=== PATIENT | male | born 1965 | race African-American/Black ===

== ENCOUNTER 2020-07-24 05:17 | Inpatient (IN) | payer OTHER, SELFPAY ==
[2020-07-24] VITALS (18 sets, daily range): BP systolic 148–173; BP diastolic 68–106; PULSE 81–109; RESP 16–36; TEMP 36.6–37.1; O2SAT 91–98; BMI 25.8; BMI 24.7
--- NOTE | 2020-07-24 05:21 | ED.RN ---
NO OLD EKGS IN MUSE
--- NOTE | 2020-07-24 05:28 | EKG12_ITS ---
Test Reason : DYSRHYTHMIA Blood Pressure : / mmHG Vent. Rate : 113 BPM Atrial Rate : 113 BPM P-R Int : 150 ms QRS Dur : 086 ms QT Int : 348 ms P-R-T Axes : 019 082 076 degrees QTc Int : 477 ms Sinus tachycardia Possible Left atrial enlargement Left ventricular hypertrophy Cannot rule out Septal infarct , age undetermined Abnormal ECG Confirmed by ROSI URBAN, PASCALE ([id number]), video tape editor DREA BELLE ([id number]) on 07/26/2020 10:38:10 A M Referred By: LALITA Confirmed By:LUL ARANDA MD
[2020-07-24] MEDS: Ipratropium/Albuterol Sulfate 3 ML AMPUL.NEB INHALATION (05:36)
--- NOTE | 2020-07-24 05:36 | EDS_ITS ---
HPI History of Present Illness Chief Complaint: Shortness of Breath Informant: patient Narrative Narrative: Patient is a 55-year-old male with a past medical history of diabetes, hypertension who presents to the emergency department for chest tightness and shortness of breath. His initial symptoms started 1 week ago but became acutely worse this past evening. He has had a mild nonproductive cough. Denies fevers or chills. No known sick contacts. He has been vaccinated for Covid. He denies significant chest pain but has a pressure sensation. This is substernally. He denies any history of heart attacks, strokes or DVT/PE. He has had mild swelling of his legs bilaterally but no unilateral painful legs. Patient does smoke cigarettes. He does admit to using cocaine but the last time was 1 week ago. He denies any abdominal pain or back pain. PFSH PFSH Medical History Anxiety Depression Diabetes mellitus, type 2 Dyslipidemia Hypertension Smoker Home Medications fluticasone propionate 2 spray INTRANASAL DAILY 07/24/20 [History Last Taken Unknown] gabapentin 300 mg PO TID 07/24/20 [History Last Taken Unknown] metformin 1,000 mg PO BIDCM 07/24/20 [History Last Taken Unknown] paroxetine HCl 20 mg PO QHS 07/24/20 [History Last Taken Unknown] trazodone 50 mg PO QHS 07/24/20 [History Last Taken Unknown] ascorbic acid (vitamin C) 500 mg PO BIDCM #60 tab 07/26/20 [Rx Last Taken Unknown] atorvastatin 80 mg PO QHS #30 tab 07/26/20 [Rx Last Taken Unknown] carvedilol 6.25 mg PO BID #60 tab 07/26/20 [Rx Last Taken Unknown] ferrous sulfate [FeroSul] 325 mg PO DAILY@1200 #90 tab 07/26/20 [Rx Last Taken Unknown] furosemide [Lasix] 40 mg PO BID #60 tab 07/26/20 [Rx Last Taken Unknown] glipizide 5 mg PO BID #60 tab 07/26/20 [Rx Last Taken Unknown] lisinopril 10 mg PO DAILY #30 tab 07/26/20 [Rx Last Taken Unknown] magnesium 250 mg PO DAILY #30 tab 07/26/20 [Rx Last Taken Unknown] nitroglycerin 0.4 mg SUBLINGUAL Q5M PRN #30 tab 07/26/20 [Rx Last Taken Unknown] sennosides-docusate sodium [Stool Softener-Stimulant Laxat] 2 tab PO BID PRN PRN #0 tab 07/26/20 [Rx Last Taken Unknown] spironolactone 25 mg PO DAILY #30 tab 07/26/20 [Rx Last Taken Unknown] Allergy/AdvReac Type Severity Reaction Status Date / Time No Known Allergies Allergy Verified 07/24/20 05:28 Social History Smoking Status: Current every day smoker tobacco type: cigarettes ROS ROS ED Constitutional Constitutional ED: Denies chills or fever(s) Eyes Eyes: Denies change in vision ENT ENT ED: Denies epistaxis or rhinorrhea Cardiovascular Cardiovascular: Denies chest pain or palpitations Respiratory/Chest Respiratory/Chest: Reports cough and dyspnea; Denies sputum Gastrointestinal Gastrointestinal: Denies abdominal pain, diarrhea, nausea or vomiting Genitourinary Genitourinary ED: Denies dysuria, hematuria or urinary frequency Musculoskeletal Musculoskeletal: Denies back pain or neck pain Integumentary Denies rash Neurologic Neurologic: Denies dizziness, headache(s) or weakness EXAM Physical Exam Const Vital Signs: 07/24/20 05:19 07/24/20 05:31 07/24/20 05:36 Temperature 97.8 F Temperature Source Temporal Pulse Rate 109 H 104 H Respiratory Rate 36 H 24 H Respiratory Pattern Tachypnea Blood Pressure 173/96 H Blood Pressure Mean 121 Pulse Ox 91 95 Oxygen Delivery Method Room Air Nasal Cannula Oxygen Flow Rate (L/min) 2 Positive well nourished and well developed General Appearance ED: well developed and NAD HEENT Reports normocephalic and head/scalp atraumatic Eyes PERRL and EOMs intact bilaterally Neck supple Chest Wall inspection of chest normal Resp Resp Narrative: Equal chest rise bilaterally. Patient is tachypneic. Auscultation: diminished lung sounds; Negative for rales, rhonchi or wheezes Cardio regular rhythm and no murmurs GI normal to inspection, nondistended, normoactive bowel sounds and non-tender Palpation: soft; Negative for guarding or rebound tenderness present Back/Spine no CVA tenderness Extremity normal to inspection General Extremety ED: Negative for edema or tenderness General Extremity: Negative for edema Neuro CN's II-XII intact bilaterally and no sensory deficits noted Sensorium / Orientation: alert Motor Exam: strength 5/5 throughout Psych mental status grossly normal Skin no rashes or lesions noted MDM MDM MDM Narrative Medical decision making narrative: Patient presents to the emergency department for shortness of breath and chest tightness. Upon arrival to the emerge depa rtment he is tachycardic, tachypneic and satting 88% on room air. Patient started on supplemental oxygen. He has diminished breath sounds and will trial a breathing treatment. Patient does has risk factors for CAD with diabetes, hypertension, smoker as well as cocaine use. EKG did not show any signs of ischemia or arrhythmia. Patient's lab work did come back positive for him being significantly anemic. He states he has required transfusions before in the past. He has been scoped both upper and lower which they did not find any acute abnormality at that time. Patient denying any melanotic or blood in the stool. Patient CT scan did show pleural effusions, pulmonary vascular congestion. He does have an elevated BNP. We will give a dose of Lasix as we are going to be transfusing him packed red blood cells. Patient did consent for this. Otherwise his troponin is negative. He is agreeable to staying in the hospital at this time. Lab Data Labs: Laboratory Results - last 24 hr 07/24/20 07/24/20 07/24/20 05:30 05:30 05:30 WBC 10.8 RBC 4.03 L Hgb 6.0 L* Hct 24.2 L MCV 60.0 L MCH 14.9 L MCHC 24.8 L RDW Std Deviation 46.0 H RDW Coeff of Prudence 22.9 H Plt Count 352 Immature Gran % (Auto) 0.400 Neut % (Auto) 72.3 H Lymph % (Auto) 17.5 L Brantley % (Auto) 7.0 Eos % (Auto) 2.2 Baso % (Auto) 0.6 Absolute Neuts (auto) 7.8 H Absolute Lymphs (auto) 1.89 Nucleated RBC % 0 Diff Path Review May foll D-Dimer Quant (PE/DVT) 1.71 H* Sodium 138 Potassium 3.6 Chloride 102 Carbon Dioxide 29.0 Anion Gap 7 BUN 12 Creatinine 0.83 Estim Creat Clear Calc 123.02 Est GFR (MDRD) Af Amer 125 Est GFR (MDRD) Non-Af 103 BUN/Creatinine Ratio 14.5 Glucose 247 H Calcium 8.2 L Magnesium 1.6 Troponin I 0.026 B-Natriuretic Peptide Crossmatch 07/24/20 07/24/20 05:30 06:00 WBC RBC Hgb Hct MCV MCH MCHC RDW Std Deviation RDW Coeff of Prudence Plt Count Immature Gran % (Auto) Neut % (Auto) Lymph % (Auto) Brantley % (Auto) Eos % (Auto) Baso % (Auto) Absolute Neuts (auto) Absolute Lymphs (auto) Nucleated RBC % Diff Path Review D-Dimer Quant (PE/DVT) Sodium Potassium Chloride Carbon Dioxide Anion Gap BUN Creatinine Estim Creat Clear Calc Est GFR (MDRD) Af Amer Est GFR (MDRD) Non-Af BUN/Creatinine Ratio Glucose Calcium Magnesium Troponin I B-Natriuretic Peptide 679.5 H Crossmatch See Detail EKG Initial EKG: Attestation: I personally reviewed and interpreted this EKG as follows: (Rate of 113 bpm in sinus tachycardia. Normal intervals. Normal axis. No significant ST elevations or depressions. No T wave abnormalities.) Discharge Plan Dx/Rx/DC Orders Clinical Impression: Anemia, Hypoxia, Dyspnea Disposition Disposition: Acute Care Hospital [facility] Discharge Date/Time: 07/24/20 08:25
[2020-07-24 05:45] LABS: Absolute Lymphocyte Count 1.89 X10^3/uL (0.83-4.51); Absolute Neutrophil Count 7.8 X10^3/uL (2.0-7.7); Basophil# 0.07 X10^3/uL; Basophil% 0.6 % (0-1); Eosinophil# 0.24 X10^3/uL; Eosinophils% 2.2 % (0-5); Hematocrit 24.2 % (40-54); Lymphocyte # 1.89 X10^3/ul (0.83-4.51); Lymphocyte % 17.5 % (19-41); Mean Corp Hgb Conc 24.8 g/dL (32-36); Mean Corpuscular Hgb 14.9 pg (27.0-32.0); Monocyte# 0.75 X10^3/uL; NRBC Flagged by Analyzer 0 % (0-5); Neutrophil % 72.3 % (47-70); POSITIVE MORPHOLOGY YES; Platelet Count 352 K/mm3 (150-450); RBC Distribution Width CV 22.9 % (11.6-14.6); Red Blood Count 4.03 M/mm3 (4.6-6.2); White Blood Count 10.8 K/mm3 (4.4-11.0)
[2020-07-24 05:48] LABS: Differential Indicated SCAN CRITERIA MET
[2020-07-24 05:52] LABS: D-Dimer Quantitative (DVT/PE) 1.71 FEU/ug/m (0.27-0.49)
--- NOTE | 2020-07-24 05:57 | CT_ITS ---
STUDY: CTA CHEST REASON FOR EXAM: Male, 55 years old. Hypoxia, elev. dimer RADIATION DOSAGE (If Supplied By Facility): CTDIvol = ( 12.12 ) mGy, DLP = ( 411.41 ) mGycm TECHNIQUE: The examination was performed with the intravenous administration of IV 100mL Isovue-370. Post-processing of the angiographic images was performed, with multiplanar reformation and 3D reconstruction. Individualized dose optimization techniques were used for this CT. COMPARISON: None. FINDINGS: Normal enhancement of the main pulmonary artery and right and left pulmonary arteries. Normal enhancement of the bilateral peripheral pulmonary arteries. There is no demonstrated pulmonary embolism. Normal thoracic aorta and visualized great vessels. There is no demonstrated aortic dissection. There is mild cardiac enlargement or coronary calcifications. Normal mediastinum. Normal hilar regions. Normal visualized trachea and bronchi. There is interstitial septal thickening small to moderate bilateral effusions. Normal pleura. Normal chest wall structures. There are degenerative changes of thoracic spine. Normal visualized upper abdomen. CT/CTA Chest W/WO Contrast IMPRESSION: Bilateral effusions and diffuse septal thickening atelectasis. Consider CHF. Mild cardiomegaly coronary artery calcification. Electronically Signed: Shweta Kim MD at 6:51 EDT Tel , Service support ,
[2020-07-24 06:02] LABS: Anion Gap 7 (5-15); BUN 12 mg/dL (7-18); BUN/Creat Ratio 14.5 RATIO (10-20); Calcium,Total 8.2 mg/dL (8.5-10.1); Chloride 102 mmol/L (98-107); Creatinine, Serum 0.83 mg/dL (0.70-1.30); EST Glomerular Filtration Rate 103 mL/min (>60); Est Glom Filt Rate - Afr Amer 125 mL/min (>60); Estimated Creatinine Clearance 123.02 ml/min; Glucose 247 mg/dL (74-106); Magnesium 1.6 mg/dL (1.6-2.6); Potassium 3.6 mmol/L (3.5-5.1); Sodium Level 138 mmol/L (136-145)
[2020-07-24 06:10] LABS: BNP,B-Type NATRIURETIC PEPTIDE 679.5 pg/mL (0-100)
[2020-07-24 07:11] LABS: AST(SGOT) 40 U/L (15-37); Alanine Aminotransfer ALT/SGPT 23 U/L (16-61); Albumin, Serum 2.6 g/dL (3.2-5.0); Alkaline Phosphatase 110 U/L (45-117); Protein, Total 6.6 g/dL (6.4-8.2)
--- NOTE | 2020-07-24 07:14 | NURSING ---
CALLED [facility], TALKED TO KEYUR. CHECKED AND HAS NOTHING BUT [employer]. WE ARE OK TO ADMIT HIM HERE WILL FAX CHART TO [phone]
[2020-07-24] MEDS: Furosemide 40 MG/4 ML Vial IV ×3 (07:20→17:51)
--- NOTE | 2020-07-24 07:33 | NURSING ---
HOSPITALIST FOR DR MILLIGAN
[2020-07-24 07:35] LABS: Allen Test Positive; Base Excess 1 mmol/L (-2 to +2); Bicarbonate 24.4 mmol/L (22-26); Blood Gas Specimen Type ART; O2 Delivery Device Room Air; PO2 55 mmHG (75-100); SITE L Radial; SO2 90 % (95-99); Total Carbon Dioxide 25 mmol/L; pCO2 34.4 mmHg (35-45); pH 7.46 (7.35-7.45)
--- NOTE | 2020-07-24 07:41 | NURSING ---
CARA CONNER ANEMIA, CHF
[2020-07-24 09:17] LABS: Magnesium 1.7 mg/dL (1.6-2.6)
--- NOTE | 2020-07-24 09:50 | ECHOD_ITS ---
Reason For Study: CHF Procedure This was a 2D Doppler, Color Flow transthoracic echocardiogram. Exam performed portable in patient room. Left Ventricle Normal LV size. Moderate concentric left ventricular hypertrophy. The estimated ejection fraction is 45 %. Stage 2 diastolic dysfunction. No regional wall motion abnormalities noted. Right Ventricle Normal RV size. Normal systolic function. Atria The left atrium is mildly enlarged. Normal right atrium. Mitral Valve Normal mitral valve. Mild (1+) eccentric mitral valve insufficiency. Tricuspid Valve Normal tricuspid valve. Mild to moderate (1-2+) tricuspid valve insufficiency. Pulmonary artery systolic pressure is 54 mmHg. Moderate pulmonary hypertension. Aortic Valve Normal aortic valve. Trisinus/trileaflet aortic valve. Pulmonic Valve Normal pulmonic valve. Great Vessels Mild to moderately dilated aortic root. The pulmonary artery is normal size. Normal inferior vena cava. Pericardium/Pleural No pericardial effusion. MMode/2D Measurements & Calculations LVIDd: 5.3 cm IVSd: 1.6 cm Ao root diam: 4.5 cm LVIDs: 4.4 cm LVPWd: 1.7 cm RVDd: 4.4 cm FS: 17.0 % LAV(MOD-sp4): 73.8 ml LVAd ap4: 48.5 cm2 SV(MOD-sp4): 95.2 ml LVLd ap4: 10.8 cm EDV(MOD-sp4): 176.1 ml EDV(sp4-el): 185.4 ml LVAs ap4: 30.0 cm2 LVLs ap4: 8.9 cm ESV(MOD-sp4): 80.9 ml ESV(sp4-el): 86.2 ml EF(MOD-sp4): 54.1 % EF(sp4-el): 53.5 % SV(sp4-el): 99.2 ml LA A4 area: 22.6 cm2 LA dimension(2D): 4.5 cm RA A4 area: 20.8 cm2 Time Measurements MV dec time: 0.11 sec Doppler Measurements & Calculations MV E max sundar: 90.3 cm/sec Lat Peak E' Sundar: 6.8 cm/sec Med Peak E' Sundar: 5.0 cm/sec MV A max sundar: 72.5 cm/sec E/E' lat: 13.3 E/E' med: 18.2 MV E/A: 1.2 Ao V2 max: 135.0 cm/sec LV V1 max: 102.8 cm/sec PA V2 max: 87.2 cm/sec Ao max P.3 mmHg LV V1 max P.2 mmHg TR max sundar: 353.0 cm/sec TR max P.9 mmHg ECHO/Echo Complete Interpretation Summary Normal LV size. The estimated ejection fraction is 45 %. Moderate concentric left ventricular hypertrophy. Mild to moderately dilated aortic root. Stage 2 diastolic dysfunction. Pulmonary artery systolic pressure is 54 mmHg. Moderate pulmonary hypertension. The left atrium is mildly enlarged. The global longitudinal strain is moderately abnormal. The global longitudinal strain = -13% (abnormal). Ordering Physician: Jesus Aguila Referring Physician: [facility] Performed By: Kathy Fair, [place], RVT
--- NOTE | 2020-07-24 09:56 | PCM.HP.STD ---
HPI - General General Date of Admission: 07/24/20 HPI Narrative OLIVER CRAMER, is a 55 M who presents with history of chronic alcohol use, substance use, hypertension, dyslipidemia and diabetes mellitus type 2 came to ER with progressive worsening of shortness of breath for 7 to 10 days along with leg swelling. Patient has been getting short of breath on exertion for 3 to 4 years progressively worsening but last 7 to 10 days complain of dyspnea at rest, PND and orthopnea. Denies chest pain or tightness. Patient also feels sometimes dizzy lightheaded but no syncope. In ED, his blood pressure is elevated, 171/101 heart rate 103/min, pulse ox 97% on room air. BNP elevated. EKG shows normal sinus tachycardia 113/min, QTC 477 ms with LVH. Patient states he takes lisinopril, cholesterol pill and Metformin but no home medications on chart. Patient admits to using crack cocaine less than a gram per day. Patient also smokes cigarettes less than a pack per day since teenage. Denies drinking alcohol. Patient mother of complication of diabetes mellitus, father had hypertension. His brother at early age, etiology unclear Pertinent abnormal labs H&H was found low 6.0/24, D-dimer 171, K3.6, glucose 247, AST 40, ALT 23. BNP 680. ABG 7.4 634/55/24 on room air. Chest x-ray showed bilateral pleural effusion with atelectasis and features of CHF. Patient is getting first unit of transfusion and 40 mg IV Lasix in ER and admitted. [facility] Medical History Anxiety Depression Diabetes mellitus, type 2 Dyslipidemia Hypertension Smoker Allergy/AdvReac Type Severity Reaction Status Date / Time No Known Allergies Allergy Verified 07/24/20 05:28 Social History Smoking Status: Current every day smoker tobacco type: cigarettes ROS ROS Narrative Constitutional: Reports fatigue and weakness, shortness of breath. Tired and pale looking HEENT: Reports systems reviewed and no addt'l complaints, except as documented Respiratory/Chest: shortness of breath at rest exacerbated with exertion as mentioned in HPI Cardiovascular: Leg swelling. Gastrointestinal: Denies coffee ground emesis, hematemesis or vomiting. Burping and abdominal bloating. Genitourinary: Denies burning urination or hematuria Musculoskeletal: Denies joint pain and limited range of motion Neurologic: Denies seizure-like activity skin: No ulcer. No rash Endocrinology: Diabetes. Reports systems reviewed and no addt'l complaints, except as documented Hematologic/Lymphatic: Reports systems reviewed and no addt'l complaints, except as documented Rest 12 ROS are negative except as mentioned in HPI Vital Signs Vital Signs Vital Signs: 07/24/20 05:19 07/24/20 05:31 07/24/20 05:36 Temperature 97.8 F Temperature Source Temporal Pulse Rate 109 H 104 H Respiratory Rate 36 H 24 H Respiratory Effort Respiratory Depth Respiratory Pattern Tachypnea Blood Pressure 173/96 H Blood Pressure Mean 121 Blood Pressure Source Blood Pressure Position Blood Pressure Location Pulse Ox 91 95 Oxygen Delivery Method Room Air Nasal Cannula Oxygen Flow Rate (L/min) 2 07/24/20 07:27 07/24/20 07:32 07/24/20 07:38 Temperature 98.3 F 98.3 F Temperature Source Oral Oral Pulse Rate 104 H 99 Respiratory Rate 18 16 Respiratory Effort Respiratory Depth Respiratory Pattern Blood Pressure 165/88 H 168/106 H Blood Pressure Mean 113 126 Blood Pressure Source Monitor Blood Pressure Position Blood Pressure Location Pulse Ox 94 94 Oxygen Delivery Method Room Air Room Air Room Air Oxygen Flow Rate (L/min) 07/24/20 07:42 07/24/20 08:01 07/24/20 08:42 Temperature 98.2 F 98.2 F 98.1 F Temperature Source Oral Oral Oral Pulse Rate 103 H 103 H 90 Respiratory Rate 19 H 19 H 20 H Respiratory Effort Respiratory Depth Respiratory Pattern Blood Pressure 170/85 H 170/85 H 171/101 H Blood Pressure Mean 113 113 124 Blood Pressure Source Monitor Monitor Blood Pressure Position Semi-Fowlers Blood Pressure Location Right Arm Pulse Ox 96 96 97 Oxygen Delivery Method Room Air Room Air Room Air Oxygen Flow Rate (L/min) 07/24/20 08:59 Temperature Temperature Source Pulse Rate Respiratory Rate Respiratory Effort Normal Non-Labored Respiratory Depth Normal Respiratory Pattern Normal Blood Pressure Blood Pressure Mean Blood Pressure Source Blood Pressure Position Blood Pressure Location Pulse Ox Oxygen Delivery Method Room Air Oxygen Flow Rate (L/min) Weight Weight: 197 lb 15.602 oz Body Mass Index (BMI) 24.7 Physical Exam Narrative General: Alert, Oriented x3, Cooperative HEENT: Atraumatic, PERRLA, EOMI, Normocephalic Oral: No Gingival or Mucosal Lesions/ Ulcerations Neck: Supple, No JVD, Negative Carotid Bruits Lungs: Air entry diminished in bilateral lung bases. Bilateral lung bases crepitations present. Cardiovascular: Regular rate, Regular Rhythm, Normal S1, Normal S2, No murmurs Abdomen: Bowel Sounds Present, Soft, Non Tender, Non-Distended : No renal angle tenderness. No suprapubic tenderness. Extremities: Bilateral leg 2+ edema, Capillary Refill Less than 3 Seconds Skin: No rashes, No breakdown Musculoskeletal: No Tenderness to Palpation of Joints or Extremities Neurological: Cranial nerves II-XII grossly intact, Deep Tendon Reflexes 2+/4 and Symmetrical, Neuro grossly intact Psych/Mental Status: Normal Affect, Appropriate. Results Lab / Micro Data Result Diagrams: 07/24/20 05:30 07/24/20 05:30 Labs: Laboratory Results - last 24 hr 07/24/20 07/24/20 07/24/20 05:30 05:30 05:30 WBC 10.8 RBC 4.03 L Hgb 6.0 L* Hct 24.2 L MCV 60.0 L MCH 14.9 L MCHC 24.8 L RDW Std Deviation 46.0 H RDW Coeff of Prudence 22.9 H Plt Count 352 Immature Gran % (Auto) 0.400 Neut % (Auto) 72.3 H Lymph % (Auto) 17.5 L Mcleod % (Auto) 7.0 Eos % (Auto) 2.2 Baso % (Auto) 0.6 Absolute Neuts (auto) 7.8 H Absolute Lymphs (auto) 1.89 Nucleated RBC % 0 Diff Path Review May foll D-Dimer Quant (PE/DVT) 1.71 H* Sodium 138 Potassium 3.6 Chloride 102 Carbon Dioxide 29.0 Anion Gap 7 BUN 12 Creatinine 0.83 Estim Creat Clear Calc 123.02 Est GFR (MDRD) Af Amer 125 Est GFR (MDRD) Non-Af 103 BUN/Creatinine Ratio 14.5 Glucose 247 H Calcium 8.2 L Magnesium 1.6 Total Bilirubin Direct Bilirubin AST ALT Alkaline Phosphatase Troponin I 0.026 B-Natriuretic Peptide Total Protein Albumin Globulin Blood Type Antibody Screen Crossmatch 07/24/20 07/24/20 07/24/20 05:30 05:30 06:00 WBC RBC Hgb Hct MCV MCH MCHC RDW Std Deviation RDW Coeff of Prudence Plt Count Immature Gran % (Auto) Neut % (Auto) Lymph % (Auto) Mcleod % (Auto) Eos % (Auto) Baso % (Auto) Absolute Neuts (auto) Absolute Lymphs (auto) Nucleated RBC % Diff Path Review D-Dimer Quant (PE/DVT) Sodium Potassium Chloride Carbon Dioxide Anion Gap BUN Creatinine Estim Creat Clear Calc Est GFR (MDRD) Af Amer Est GFR (MDRD) Non-Af BUN/Creatinine Ratio Glucose Calcium Magnesium Total Bilirubin 0.40 Direct Bilirubin 0.20 AST 40 H ALT 23 Alkaline Phosphatase 110 Troponin I B-Natriuretic Peptide 679.5 H Total Protein 6.6 Albumin 2.6 L Globulin 4.0 Blood Type B POSITIVE Antibody Screen NEGATIVE Crossmatch See Detail 07/24/20 07/24/20 08:59 08:59 WBC RBC Hgb Hct MCV MCH MCHC RDW Std Deviation RDW Coeff of Prudence Plt Count Immature Gran % (Auto) Neut % (Auto) Lymph % (Auto) Mcleod % (Auto) Eos % (Auto) Baso % (Auto) Absolute Neuts (auto) Absolute Lymphs (auto) Nucleated RBC % Diff Path Review D-Dimer Quant (PE/DVT) Sodium Potassium Chloride Carbon Dioxide Anion Gap BUN Creatinine Estim Creat Clear Calc Est GFR (MDRD) Af Amer Est GFR (MDRD) Non-Af BUN/Creatinine Ratio Glucose Calcium Magnesium 1.7 Total Bilirubin Direct Bilirubin AST ALT Alkaline Phosphatase Troponin I 0.037 B-Natriuretic Peptide Total Protein Albumin Globulin Blood Type Antibody Screen Crossmatch Micro: Microbiology 07/24/20 05:30 SARS-CoV-2 Antigen (Rapid) - Final Mucosa - Nose ABG Data ABG results: ABG 07/24/20 07:28 Specimen Type ART Sample Site L Radial pH 7.46 H Bicarbonate Actual 24.4 Total CO2 25 Base Excess 1 O2 Saturation 90 L ABG pCO2 34.4 L ABG pO2 55 L Miky Test Positive O2 Delivery Device Room Air Radiology Impression Chest CTA 07/24/20 05:57 IMPRESSION: Bilateral effusions and diffuse septal thickening atelectasis. Consider CHF. Mild cardiomegaly coronary artery calcification. Electronically Signed: Shweta Kim MD at 6:51 EDT Tel , Service support , Assessment & Plan Assessment/Plan (1) Acute on chronic heart failure: PLAN: alice BRADSHAW a 55 M was admitted through ER with progressive worsening of shortness of breath for 7 to 10 days along with leg swelling. EKG shows normal sinus tachycardia 113/min, QTC 477 ms with LVH. Pertinent abnormal labs H&H was found low 6.0/24, D-dimer 171, K3.6, glucose 247, AST 40, ALT 23. BNP 680. ABG 7.4 6/34/55/24 on room air. Chest x-ray showed bilateral pleural effusion with atelectasis and features of CHF. 1. Acute on chronic heart failure, class, type and etiology unclear: By history, it seems patient has slowly progressive worsening of heart failure. Patient is being admitted in PCU on cardiac telemetry. Serial troponin enzymes to rule out ischemia. 2D echo ordered. Lasix 40 mg IV twice daily. On lisinopril. Start beta-cornelius when patient is euvolemic. Fasting profile and TSH tomorrow a.m. Atorvastatin started. Discussed with the pharmacist regarding meds probably needs to be faxed from [facility]. Discussed with Dr. Chapman and will need ischemia evaluation probably cardiac cath after patient is euvolemic and well diuresed. 2. Hypertension with LVH on EKG, dyslipidemia: As mentioned above 3. Diabetes mellitus type 2: Glucose is elevated. A1c tomorrow a.m. Accu-Cheks before meals and at bedtime and cover with similar sliding scale. 4. Acute or chronic microcytic anemia: Hemogram shows low MCV, MCH and MCHC, most likely iron deficiency anemia. RDW elevated. Stool for occult blood ordered. 2 units of PRBC ordered 1 transfusion today and second 1 tomorrow a.m to avoid fluid overload. Will need GI evaluation most probably as an outpatient when patient is in a stable steady state. 5. Chronic smoker and substance use: UA and urine tox ordered. Patient advised to quit smoking and cocaine. VTE prophylaxis: Bilateral SCDs. Pharmacological prophylaxis contraindicated because of severe anemia. Living will/advanced directive/end of life care: Patient does not have living will or advanced directive. After discussion of benefits/risks procedures involved with full code, DNR CC arrest and DNR CC, the patient opted for full code Patient does want artificial life support including intubation, tube feed, ventilator and/chest compression, central venous catheter, vasopressor and DC shock if needed Total time spent in [id number] encounter in discussion of advanced directive 16 minutes. Clinical Impression(s) from Imaging Studies Chest CTA 07/24/20 05:57 IMPRESSION: Bilateral effusions and diffuse septal thickening atelectasis. Consider CHF. Mild cardiomegaly coronary artery calcification. Charges/Coding Visit Charges Inpatient E&M: 52298 Init Hosp L3 Procedures Hospitalists Procedures: 18247 Advncd Care Plan 30 Min
--- NOTE | 2020-07-24 09:58 | NURSING ---
Addendum entered by Kanwal Schmidt 07/24/20 12:23: This RN received medication list from [place]. Updated on Home Medication List and notified MD. Original Note: This RN called [facility] for medication list. They are to fax information to [facility].
--- NOTE | 2020-07-24 10:10 | CASEMGMT ---
AKILA MAYES assessment: Face to Face with patient for initial transition planning/care coordination assessment. AKILA MAYES introduced self and role at [facility], pt voices understanding and consents to assessment. Pt is sitting up in bed in no distress on room air. Pt is A/Ox4 and answers all questions appropriately. Care providers, pharmacy, and demographics verified. Presentation: Pt w/ panic attack, shaking/SOB-hx anxiety, high BP Admitting dx: CHF exac, anemia PCP: LARON Atkins Specialists: Johnnie LARRY [place] but would like any scripts sent thru [facility] [place] Living Will/HPOA: Pt states does not have LW/HPOA and declines AD info. LNOK: Elsy Onur, sig other Living Arrangements: Pt states lives with sig other in 1 story apartment with no steps and states no concerns at home. Pt states is independent with ADL's. Transportation: Pt drives self and states no transportation concerns. DME/HHC: Pt states no current DME or need for any. Pt states no hx of HHC or SNF. Pt staes no concerns with going home at time of discharge. Pt states is retired. Pt states smokes 1/2 pk cigarettes daily, drinks ETOH occasionally, and states does crack cocaine daily. Pt states no further concerns/needs. CM to follow for any further discharge planning/needs. Advised pt to ask for CM if any further questions/concerns/needs arise, voices understanding. Pt Goal: Home Plan: [place] AKILA MAYES
[2020-07-24] MEDS: Lisinopril 10 MG Tablet PO (11:02)
[2020-07-24] MEDS: 0.9% Saline Lock 10 ML Syringe IV ×3 (11:02→22:38)
[2020-07-24 12:14] LABS: Pathologist Review Reviewed
[2020-07-24] MEDS: Gabapentin 300 MG Capsule PO ×2 (13:56→22:28)
[2020-07-24] MEDS: Atorvastatin Calcium 40 MG Tablet PO (22:28)
[2020-07-24] MEDS: Paroxetine 20 MG Tablet PO (22:29)
[2020-07-25] VITALS (14 sets, daily range): BP systolic 142–164; BP diastolic 78–98; PULSE 86–92; RESP 16–18; TEMP 36.4–37.2; O2SAT 94–98
[2020-07-25 00:51] LABS: Bedside Glucose 289 mg/dL (70-110)
[2020-07-25] MEDS: Insulin Lispro 100 UNIT/ML INSULN.PEN SC ×5 (01:35→22:01)
[2020-07-25 05:51] LABS: Absolute Lymphocyte Count 1.91 X10^3/uL (0.83-4.51); Absolute Neutrophil Count 5.9 X10^3/uL (2.0-7.7); Basophil# 0.09 X10^3/uL; Differential Indicated SCAN CRITERIA MET; Eosinophil# 0.24 X10^3/uL; Eosinophils% 2.7 % (0-5); Hemoglobin 6.6 g/dL (13.0-16.5); Lymphocyte # 1.91 X10^3/ul (0.83-4.51); Lymphocyte % 21.7 % (19-41); Mean Corp Hgb Conc 25.4 g/dL (32-36); Mean Corpuscular Hgb 15.5 pg (27.0-32.0); Mean Corpuscular Volume 61.2 fL (80-94); Monocyte# 0.67 X10^3/uL; Monocyte% 7.6 % (0-10); NRBC Flagged by Analyzer 0 % (0-5); Neutrophil # 5.88 X10^3/uL (2.7-7.7); Neutrophil % 66.7 % (47-70); POSITIVE MORPHOLOGY YES; Platelet Count 359 K/mm3 (150-450); RBC Distribution Width CV 25.2 % (11.6-14.6); RBC Distribution Width SD 52.1 fl (35.1-43.9); Red Blood Count 4.25 M/mm3 (4.6-6.2); White Blood Count 8.8 K/mm3 (4.4-11.0)
[2020-07-25 06:19] LABS: Anion Gap 6 (5-15); BUN 10 mg/dL (7-18); BUN/Creat Ratio 13.3 RATIO (10-20); Chloride 100 mmol/L (98-107); Cholesterol 174 mg/dL (200); Creatinine, Serum 0.75 mg/dL (0.70-1.30); EST Glomerular Filtration Rate 115 mL/min (>60); Est Glom Filt Rate - Afr Amer 139 mL/min (>60); Estimated Creatinine Clearance 136.14 ml/min; Glucose 182 mg/dL (74-106); High Density Lipoprotein 37 mg/dL; Phosphorus 3.6 mg/dL (2.5-4.9); Potassium 3.4 mmol/L (3.5-5.1); Sodium Level 138 mmol/L (136-145); Thyroid Stim Hormone (TSH) 0.82 uIU/mL (0.358-3.74); Triglycerides 106 mg/dL; Very Low Density Lipoprotein 21 mg/dL (5-40)
[2020-07-25 06:30] LABS: Hypochromasia 3+
[2020-07-25] MEDS: Gabapentin 300 MG Capsule PO ×3 (06:36→22:00)
[2020-07-25 06:46] LABS: Bedside Glucose 176 mg/dL (70-110)
[2020-07-25 07:41] LABS: BNP,B-Type NATRIURETIC PEPTIDE 789.6 pg/mL (0-100)
[2020-07-25] MEDS: Lisinopril 10 MG Tablet PO (09:27)
[2020-07-25] MEDS: Furosemide 40 MG/4 ML Vial IV ×2 (09:27→17:56)
[2020-07-25] MEDS: 0.9% Saline Lock 10 ML Syringe IV ×3 (09:27→17:56)
[2020-07-25] MEDS: Potassium Chloride Oral Tablet 20 MEQ 40 MEQ PO (11:24)
[2020-07-25 11:41] LABS: Bedside Glucose 263 mg/dL (70-110)
--- NOTE | 2020-07-25 13:56 | CON.PCM.CA_ITS ---
Assessment & Plan Assessment/Plan (1) Acute on chronic heart failure: QUALIFIERS: Heart failure type: combined systolic and diastolic Qualified Code(s): I50.43 - Acute on chronic combined systolic (congestive) and diastolic (congestive) heart failure PLAN: Patient responded well to Lasix. He does have low EF on echo. He did have chest tightness as well. He would need coronary angiography. However patient has significant anemia that needs to be investigated first. He does not have any evidence of acute coronary syndrome. Coronary angiography could be done as an outpatient. From a CHF standpoint I agree with continuing lisinopril and IV Lasix at this time. Potentially tomorrow we can switch the Lasix to p.o. I will also go ahead and add carvedilol. HPI Consult Data Date of Consult: 07/25/20 HPI Narrative Reason for Consultation: CHF, LV dysfunction HPI Narrative: OLIVER CRAMER, is a 55 M who presents with shortness of breath. Patient also had pedal edema, PND and chest tightness. Patient was admitted to the PCU. He was also noted to have significant anemia with a hemoglobin of 6.0. His troponin x3 have been negative. Patient received 1 unit of PRBC yesterday and is getting his second unit today. Patient was also diuresed with Lasix and feels significantly better today. Patient states that back in 2014 he had severe anemia and had EGD and colonoscopy which were negative. Patient also has history of cocaine use and uses it about twice a month at most. His last use was 1 week back. He had a 2D echo which revealed an EF of 45%. Review of systems: All systems reviewed. All else is negative except that in the HPI [facility] Medical History Anxiety Depression Diabetes mellitus, type 2 Dyslipidemia Hypertension Smoker Home Medications atorvastatin 80 mg PO QHS 07/24/20 [History Last Taken Unknown] fluticasone propionate 2 spray INTRANASAL DAILY 07/24/20 [History Last Taken Unknown] gabapentin 300 mg PO TID 07/24/20 [History Last Taken Unknown] lisinopril 10 mg PO DAILY 07/24/20 [History Last Taken Unknown] metformin 1,000 mg PO BIDCM 07/24/20 [History Last Taken Unknown] naproxen 375 mg PO BID PRN PRN 07/24/20 [History Last Taken Unknown] paroxetine HCl 20 mg PO QHS 07/24/20 [History Last Taken Unknown] trazodone 50 mg PO QHS 07/24/20 [History Last Taken Unknown] Allergy/AdvReac Type Severity Reaction Status Date / Time No Known Allergies Allergy Verified 07/24/20 05:28 Social History Smoking Status: Current every day smoker tobacco type: cigarettes Physical Exam Const alert and oriented x3 Orientation / Consciousness: awake HEENT normocephalic Eyes no scleral icterus Neck supple Chest inspection of chest normal Resp clear to auscultation bilaterally Cardio regular rate and regular rhythm Extremity no pedal edema Skin no rashes or lesions noted Neuro oriented x3 Psych mental status grossly normal Charges/Coding Visit Charges Inpatient E&M: 40592 Init Hosp L3 Objective Data Vital Signs: Vital Signs Temp Pulse Resp BP Pulse Ox 98.8 F 87 18 142/86 H 95 07/25/20 12:32 07/25/20 12:32 07/25/20 12:32 07/25/20 12:32 07/25/20 12:32 Oxygen Flow Rate (L/min) 2 Oxygen Delivery Method Room Air Weight: 198 lb 3.129 oz Body Mass Index (BMI) 24.7 Intake & Output: Intake and Output for Last 24 Hours 07/23/20 07/24/20 07/25/20 23:59 23:59 23:59 Intake Total 1344 / 1584 1180 / 1180 Output Total 2750 / 4750 3675 / 3675 Balance -1406 / -3166 -2495 / -2495 Lab / Micro Data Result Diagrams: 07/25/20 05:22 07/25/20 05:22 Labs: Laboratory Results - last 24 hr 07/24/20 07/25/20 07/25/20 06:00 00:46 05:22 WBC 8.8 RBC 4.25 L Hgb 6.6 L Hct 26.0 L MCV 61.2 L MCH 15.5 L MCHC 25.4 L RDW Std Deviation 52.1 H RDW Coeff of Prudence 25.2 H Plt Count 359 Immature Gran % (Auto) 0.300 Neut % (Auto) 66.7 Lymph % (Auto) 21.7 [place] % (Auto) 7.6 Eos % (Auto) 2.7 Baso % (Auto) 1.0 Absolute Neuts (auto) 5.9 Absolute Lymphs (auto) 1.91 Nucleated RBC % 0 Hypochromasia 3+ Sodium Potassium Chloride Carbon Dioxide Anion Gap BUN Creatinine Estim Creat Clear Calc Est GFR (MDRD) Af Amer Est GFR (MDRD) Non-Af BUN/Creatinine Ratio Glucose Calcium Phosphorus B-Natriuretic Peptide Triglycerides Cholesterol LDL Cholesterol VLDL Cholesterol HDL Cholesterol TSH POC Glucose 289 H Blood Type B POSITIVE Antibody Screen NEGATIVE Crossmatch See Detail 07/25/20 07/25/20 07/25/20 05:22 05:22 06:35 WBC RBC Hgb Hct MCV MCH MCHC RDW Std Deviation RDW Coeff of Prudence Plt Count Immature Gran % (Auto) Neut % (Auto) Lymph % (Auto) [place] % (Auto) Eos % (Auto) Baso % (Auto) Absolute Neuts (auto) Absolute Lymphs (auto) Nucleated RBC % Hypochromasia Sodium 138 Potassium 3.4 L Chloride 100 Carbon Dioxide 32.0 Anion Gap 6 BUN 10 Creatinine 0.75 Estim Creat Clear Calc 136.14 Est GFR (MDRD) Af Amer 139 Est GFR (MDRD) Non-Af 115 BUN/Creatinine Ratio 13.3 Glucose 182 H Calcium 8.0 L Phosphorus 3.6 B-Natriuretic Peptide 789.6 H Triglycerides 106 Cholesterol 174 LDL Cholesterol 116 VLDL Cholesterol 21 HDL Cholesterol 37 L TSH 0.82 POC Glucose 176 H Blood Type Antibody Screen Crossmatch 07/25/20 11:21 WBC RBC Hgb Hct MCV MCH MCHC RDW Std Deviation RDW Coeff of Prudence Plt Count Immature Gran % (Auto) Neut % (Auto) Lymph % (Auto) [place] % (Auto) Eos % (Auto) Baso % (Auto) Absolute Neuts (auto) Absolute Lymphs (auto) Nucleated RBC % Hypochromasia Sodium Potassium Chloride Carbon Dioxide Anion Gap BUN Creatinine Estim Creat Clear Calc Est GFR (MDRD) Af Amer Est GFR (MDRD) Non-Af BUN/Creatinine Ratio Glucose Calcium Phosphorus B-Natriuretic Peptide Triglycerides Cholesterol LDL Cholesterol VLDL Cholesterol HDL Cholesterol TSH POC Glucose 263 H Blood Type Antibody Screen Crossmatch Micro: Microbiology 07/24/20 11:54 Stool Stool Occult Blood (JEFF) - Final 07/24/20 05:30 Mucosa - Nose SARS-CoV-2 Antigen (Rapid) - Final Cardiology Labs/Tests 07/25/20 05:22: WBC 8.8, RBC 4.25 L, Hgb 6.6 L, Hct 26.0 L, MCV 61.2 L, MCH 15.5 L, MCHC 25.4 L, Plt Count 359, Immature Gran % (Auto) 0.300, Neut % (Auto) 66.7, Lymph % (Auto) 21.7, [place] % (Auto) 7.6, Eos % (Auto) 2.7, Baso % (Auto) 1.0, Absolute Neuts (auto) 5.9, Nucleated RBC % 0 07/25/20 05:22: Sodium 138, Potassium 3.4 L, Chloride 100, Carbon Dioxide 32.0, Anion Gap 6, BUN 10, Creatinine 0.75, Est GFR (MDRD) Af Amer 139, Est GFR (MDRD) Non-Af 115, BUN/Creatinine Ratio 13.3, Glucose 182 H, Calcium 8.0 L, Phosphorus 3.6, Triglycerides 106, Cholesterol 174, LDL Cholesterol 116, VLDL Cholesterol 21, HDL Cholesterol 37 L 07/25/20 05:22: B-Natriuretic Peptide 789.6 H Rhythm: EKG: ECHO: Stress Test: Cardiac Cath: PCI: CT Surgery: Holter monitor: EPS: PPM: CXR: Chest CT Scan: Radiography Diagnostic Testing: Radiology Impression Echocardiogram 07/24/20 09:50 Interpretation Summary Normal LV size. The estimated ejection fraction is 45 %. Moderate concentric left ventricular hypertrophy. Mild to moderately dilated aortic root. Stage 2 diastolic dysfunction. Pulmonary artery systolic pressure is 54 mmHg. Moderate pulmonary hypertension. The left atrium is mildly enlarged. The global longitudinal strain is moderately abnormal. The global longitudinal strain = -13% (abnormal). Ordering Physician: Jesus Aguila Referring Physician: [facility] Performed By: Kathy Fair, RDCS, RVT
[2020-07-25] MEDS: Ascorbic Acid 500 MG Tablet PO (15:59)
[2020-07-25] MEDS: Ferrous Sulfate 325 MG Tablet PO (15:59)
--- NOTE | 2020-07-25 16:10 | PN.HOSP_ITS ---
Subjective Subjective Patient feels much improvement shortness of breath and he was sleeping when I went in the room. He woke up. Is laying down comfortably. Hemoglobin is still low 6.6. Objective Data Objective Data Vital Signs: Vital Signs Temp Pulse Resp BP Pulse Ox 98.8 F 90 18 142/86 H 95 07/25/20 12:32 07/25/20 15:50 07/25/20 12:32 07/25/20 12:32 07/25/20 12:32 Oxygen Flow Rate (L/min) 2 Oxygen Delivery Method Room Air Weight: 198 lb 3.129 oz Body Mass Index (BMI) 24.7 Intake & Output: Intake and Output for Last 24 Hours 07/23/20 07/24/20 07/25/20 23:59 23:59 23:59 Intake Total 1344 / 1584 1229 / 1229 Output Total 2750 / 4750 3675 / 3675 Balance -1406 / -3166 -2446 / -2446 Lab / Micro Data Result Diagrams: 07/25/20 05:22 07/25/20 05:22 Labs: Laboratory Results - last 24 hr 07/24/20 07/25/20 07/25/20 06:00 00:46 05:22 WBC 8.8 RBC 4.25 L Hgb 6.6 L Hct 26.0 L MCV 61.2 L MCH 15.5 L MCHC 25.4 L RDW Std Deviation 52.1 H RDW Coeff of Prudence 25.2 H Plt Count 359 Immature Gran % (Auto) 0.300 Neut % (Auto) 66.7 Lymph % (Auto) 21.7 [place] % (Auto) 7.6 Eos % (Auto) 2.7 Baso % (Auto) 1.0 Absolute Neuts (auto) 5.9 Absolute Lymphs (auto) 1.91 Nucleated RBC % 0 Hypochromasia 3+ Sodium Potassium Chloride Carbon Dioxide Anion Gap BUN Creatinine Estim Creat Clear Calc Est GFR (MDRD) Af Amer Est GFR (MDRD) Non-Af BUN/Creatinine Ratio Glucose Calcium Phosphorus B-Natriuretic Peptide Triglycerides Cholesterol LDL Cholesterol VLDL Cholesterol HDL Cholesterol TSH POC Glucose 289 H Blood Type B POSITIVE Antibody Screen NEGATIVE Crossmatch See Detail 07/25/20 07/25/20 07/25/20 05:22 05:22 06:35 WBC RBC Hgb Hct MCV MCH MCHC RDW Std Deviation RDW Coeff of Prudence Plt Count Immature Gran % (Auto) Neut % (Auto) Lymph % (Auto) [place] % (Auto) Eos % (Auto) Baso % (Auto) Absolute Neuts (auto) Absolute Lymphs (auto) Nucleated RBC % Hypochromasia Sodium 138 Potassium 3.4 L Chloride 100 Carbon Dioxide 32.0 Anion Gap 6 BUN 10 Creatinine 0.75 Estim Creat Clear Calc 136.14 Est GFR (MDRD) Af Amer 139 Est GFR (MDRD) Non-Af 115 BUN/Creatinine Ratio 13.3 Glucose 182 H Calcium 8.0 L Phosphorus 3.6 B-Natriuretic Peptide 789.6 H Triglycerides 106 Cholesterol 174 LDL Cholesterol 116 VLDL Cholesterol 21 HDL Cholesterol 37 L TSH 0.82 POC Glucose 176 H Blood Type Antibody Screen Crossmatch 07/25/20 11:21 WBC RBC Hgb Hct MCV MCH MCHC RDW Std Deviation RDW Coeff of Prudence Plt Count Immature Gran % (Auto) Neut % (Auto) Lymph % (Auto) [place] % (Auto) Eos % (Auto) Baso % (Auto) Absolute Neuts (auto) Absolute Lymphs (auto) Nucleated RBC % Hypochromasia Sodium Potassium Chloride Carbon Dioxide Anion Gap BUN Creatinine Estim Creat Clear Calc Est GFR (MDRD) Af Amer Est GFR (MDRD) Non-Af BUN/Creatinine Ratio Glucose Calcium Phosphorus B-Natriuretic Peptide Triglycerides Cholesterol LDL Cholesterol VLDL Cholesterol HDL Cholesterol TSH POC Glucose 263 H Blood Type Antibody Screen Crossmatch Micro: Microbiology 07/24/20 11:54 Stool Stool Occult Blood (JEFF) - Final 07/24/20 05:30 Mucosa - Nose SARS-CoV-2 Antigen (Rapid) - Final Radiography Diagnostic Testing: Radiology Impression Echocardiogram 07/24/20 09:50 Interpretation Summary Normal LV size. The estimated ejection fraction is 45 %. Moderate concentric left ventricular hypertrophy. Mild to moderately dilated aortic root. Stage 2 diastolic dysfunction. Pulmonary artery systolic pressure is 54 mmHg. Moderate pulmonary hypertension. The left atrium is mildly enlarged. The global longitudinal strain is moderately abnormal. The global longitudinal strain = -13% (abnormal). Ordering Physician: Jesus Aguila Referring Physician: [facility] Performed By: Kathy Fair, [place], RVT Physical Exam Narrative General: Alert, Oriented x3, Cooperative HEENT: Atraumatic, PERRLA, EOMI, Normocephalic Oral: No Gingival or Mucosal Lesions/ Ulcerations Neck: Supple, No JVD, Negative Carotid Bruits Lungs: Air entry diminished in bilateral lung bases. Lungs clear. No orthopnea. Cardiovascular: Regular rate, Regular Rhythm, Normal S1, Normal S2, No murmurs Abdomen: Bowel Sounds Present, Soft, Non Tender, Non-Distended : No renal angle tenderness. No suprapubic tenderness. Extremities: Bilateral leg 2+ edema, Capillary Refill Less than 3 Seconds Skin: No rashes, No breakdown Musculoskeletal: No Tenderness to Palpation of Joints or Extremities Neurological: Cranial nerves II-XII grossly intact, Deep Tendon Reflexes 2+/4 and Symmetrical, Neuro grossly intact Psych/Mental Status: Normal Affect, Appropriate. Assessment & Plan Assessment/Plan (1) Acute on chronic heart failure: QUALIFIERS: Heart failure type: combined systolic and diastolic Qualified Code(s): I50.43 - Acute on chronic combined systolic (congestive) and diastolic (congestive) heart failure PLAN: OLIVER CRAMER, alice a 55 M was admitted through ER with progressive worsening of shortness of breath for 7 to 10 days along with leg swelling. EKG shows normal sinus tachycardia 113/min, QTC 477 ms with LVH. Pertinent abnormal labs H&H was found low 6.0/24, D-dimer 171, K3.6, glucose 247, AST 40, ALT 23. BNP 680. ABG 7.4 34/55/24 on room air. Chest x-ray showed bilateral pleural effusion with atelectasis and features of CHF. 1. Acute on chronic heart failure, systolic and diastolic combined etiology unclear: By history, it seems patient has slowly progressive worsening of heart failure. Patient is being admitted in PCU on cardiac telemetry. Serial troponin enzymes to rule out ischemia. 2D echo ordered. Lasix 40 mg IV twice daily. On lisinopril. Start beta-cornelius when patient is euvolemic. Fasting profile and TSH tomorrow a.m. Atorvastatin started. Discussed with the pharmacist regarding meds probably needs to be faxed from [facility]. 07/25: Seen by textile machinery sales representative. Recommended work-up for anemia therefore GI was consulted but no opening of EGD tomorrow. Discussed with surgeon Dr. Sims. Advised follow-up EGD. Recommended continue medical management. 2D echo shows EF 45%, stage II diastolic function, RVSP 54 mmHg with moderate pulmonary hypertension suggestive of combined heart failure 2. Hypertension with LVH on EKG, dyslipidemia: As mentioned above 3. Diabetes mellitus type 2: Glucose is elevated. A1c tomorrow a.m. Accu- Cheks before meals and at bedtime and cover with similar sliding scale. 4. Acute or chronic microcytic anemia: Hemogram shows low MCV, MCH and MCHC, most likely iron deficiency anemia. RDW elevated. If no GI fluid found will need hematology follow-up. 07/25: Hemoglobin still remains low 6.7 therefore second unit of transfusion today along with Lasix. If no GI fluid found will need hematology follow-up. 5. Chronic smoker and substance use: UA and urine tox ordered. Patient advised to quit smoking and cocaine. VTE prophylaxis: Bilateral SCDs. Pharmacological prophylaxis contraindicated because of severe anemia. Total time of the visit including total time spent in counseling or coordination of care, (more than 50% of the total time, spent in obtaining medical information from nurses and other ancillary care providers,explaining to the patient about labs, imaging, diagnosis and management), discussion with consultants textile machinery sales representative and surgeon, review of labs and imaging is 30 minutes. Living will/advanced directive/end of life care: Patient does not have living will or advanced directive. After discussion of benefits/risks procedures involved with full code, DNR CC arrest and DNR CC, the patient opted for full code Patient does want artificial life support including intubation, tube feed, ventilator and/chest compression, central venous catheter, vasopressor and DC shock if needed Total time spent in [id number] encounter in discussion of advanced directive 16 minutes. Clinical Impression(s) from Imaging Studies Chest CTA 07/24/20 05:57 IMPRESSION: Bilateral effusions and diffuse septal thickening atelectasis. Consider CHF. Mild cardiomegaly coronary artery calcification. Charges/Coding Visit Charges Inpatient E&M: 40407 Subs Hosp L3
[2020-07-25 16:16] LABS: Bedside Glucose 283 mg/dL (70-110)
[2020-07-25] MEDS: Carvedilol 3.125 MG TABLET PO (22:00)
[2020-07-25] MEDS: Atorvastatin Calcium 40 MG Tablet PO (22:00)
[2020-07-25] MEDS: Paroxetine 20 MG Tablet PO (22:00)
[2020-07-25] MEDS: traZODone 50 MG Tablet PO (22:01)
[2020-07-25 22:10] LABS: Bedside Glucose 219 mg/dL (70-110)
[2020-07-26 03:00] VITALS: PULSE 80
[2020-07-26 03:43] VITALS: BP 137/88; PULSE 84; RESP 18; TEMP 36.9; O2SAT 96
[2020-07-26 05:21] LABS: Absolute Neutrophil Count 6.5 X10^3/uL (2.0-7.7); Basophil# 0.08 X10^3/uL; Basophil% 0.9 % (0-1); Eosinophil# 0.21 X10^3/uL; Eosinophils% 2.2 % (0-5); Hematocrit 30.7 % (40-54); Hemoglobin 8.2 g/dL (13.0-16.5); Lymphocyte % 20.2 % (19-41); Mean Corp Hgb Conc 26.7 g/dL (32-36); Mean Corpuscular Volume 63.8 fL (80-94); Monocyte% 7.4 % (0-10); NRBC Flagged by Analyzer 0 % (0-5); Neutrophil # 6.46 X10^3/uL (2.7-7.7); Neutrophil % 68.7 % (47-70); POSITIVE MORPHOLOGY YES; Platelet Count 365 K/mm3 (150-450); RBC Distribution Width CV 27.3 % (11.6-14.6); Red Blood Count 4.81 M/mm3 (4.6-6.2); Reticulocyte Count 1.12 % (0.5-1.5); White Blood Count 9.4 K/mm3 (4.4-11.0)
[2020-07-26 05:22] LABS: Differential Indicated SCAN CRITERIA MET
[2020-07-26] MEDS: Gabapentin 300 MG Capsule PO ×2 (05:46→13:35)
[2020-07-26 05:52] LABS: Anisocytosis 3+; Hypochromasia 3+; Macrocytosis RARE; Microcytosis 2+; Polychromasia RARE
[2020-07-26 05:58] LABS: Anion Gap 6 (5-15); BUN 12 mg/dL (7-18); BUN/Creat Ratio 15.8 RATIO (10-20); Calcium,Total 8.4 mg/dL (8.5-10.1); Chloride 102 mmol/L (98-107); Creatinine, Serum 0.76 mg/dL (0.70-1.30); EST Glomerular Filtration Rate 114 mL/min (>60); Est Glom Filt Rate - Afr Amer 138 mL/min (>60); Estimated Creatinine Clearance 134.35 ml/min; Ferritin 9 ng/mL (26-388); Glucose 159 mg/dL (74-106); Iron 22 ug/dL (65-175); Iron Binding Capacity,Total 373 ug/dL (250-450); Magnesium 1.8 mg/dL (1.6-2.6); PERCENT IRON SATURATION 5.9 % (15.0-55.0); Potassium 3.6 mmol/L (3.5-5.1); Sodium Level 139 mmol/L (136-145)
[2020-07-26 06:45] LABS: Bedside Glucose 152 mg/dL (70-110)
[2020-07-26 07:08] VITALS: PULSE 79
[2020-07-26] MEDS: Insulin Lispro 100 UNIT/ML INSULN.PEN SC ×2 (08:37→12:00)
[2020-07-26] MEDS: Potassium Chloride Oral Tablet 20 MEQ 40 MEQ PO (08:38)
[2020-07-26] MEDS: Ascorbic Acid 500 MG Tablet PO (08:39)
[2020-07-26] MEDS: Lisinopril 10 MG Tablet PO (09:01)
[2020-07-26] MEDS: 0.9% Saline Lock 10 ML Syringe IV (09:01)
[2020-07-26] MEDS: Furosemide 40 MG/4 ML Vial IV (09:01)
[2020-07-26] MEDS: Carvedilol 3.125 MG TABLET PO (09:01)
[2020-07-26] MEDS: Fluticasone 0.05% 1 SPRAY NASAL.SRY 2 SPRAY NASAL (09:02)
[2020-07-26] MEDS: Sodium Ferric Gluconat 250 MG in 0.9% Normal Saline 250 ML 135 MG IV (09:22)
[2020-07-26 09:27] LABS: Vitamin B12 600 pg/mL (211-911)
[2020-07-26 09:43] VITALS: BP 138/86; PULSE 81; RESP 18; TEMP 36.8; O2SAT 96
--- NOTE | 2020-07-26 10:53 | DCINST_ITS ---
Discharge Instructions Diet Discharge Diet: 6 Cup Fluid Restriction and 2000 mg Sodium Diet Activity Discharge Activity: Return to Normal Activity Weight Bearing Status: Weight bearing as tolerated Dressing / Incision Call your doctor if you observe: Fever of 101 or Higher, Coldness, Increased Pain, Numbness or Tingling, Change in Color, Inability to urinate, Inability to have a bowel movement, Shortness of breath, Dizziness, Fainting spells, Swelling in the ankles, Chest pain, Prolonged hiccupping, Increased palpitations (irregular heartbeat), Calf discomfort and Uncontrolled pain Follow Up Care Test Results: Test results from this visit will be discussed in further detail at your follow-up appointment, if applicable. Discharge Plan Admission Admit Date/Time: 07/24/20 07:41 Primary Reason for Your Visit: Acute systolic heart failure, severe ID anemia Attending Provider: Jesus Aguila Primary Care Provider: [facility],[place] Consulting Providers: Fernando Bustos Discharge Orders/Prescriptions Prescriptions: New sennosides-docusate sodium [Stool Softener-Stimulant Laxat] 8.6-50 mg Tablet 2 tab PO BID PRN PRN (Reason: Constipation) Qty: 0 RF: 0 ascorbic acid (vitamin C) 500 mg Tablet 500 mg PO BIDCM Qty: 60 RF: 0 ferrous sulfate [FeroSul] 325 mg (65 mg iron) Tablet 325 mg PO DAILY@1200 Qty: 90 RF: 0 nitroglycerin 0.4 mg Tablet, Sublingual 0.4 mg sublingual Q5M PRN (Reason: Cardiac/Chest Pain) Qty: 30 RF: 0 carvedilol 6.25 mg tablet 6.25 mg PO BID Qty: 60 RF: 2 glipizide 5 mg tablet 5 mg PO BID Qty: 60 RF: 0 spironolactone 25 mg tablet 25 mg PO DAILY Qty: 30 RF: 1 magnesium 250 mg tablet 250 mg PO DAILY Qty: 30 RF: 0 furosemide [Lasix] 40 mg tablet 40 mg PO BID Qty: 60 RF: 1 Continued metformin 500 mg Tablet 1,000 mg PO BIDCM RF: 0 paroxetine HCl 10 mg Tablet 20 mg PO QHS RF: 0 trazodone 50 mg Tablet 50 mg PO QHS RF: 0 gabapentin 300 mg Capsule 300 mg PO TID RF: 0 fluticasone propionate 50 mcg/actuation [place],Suspension 2 spray INTRANASAL DAILY RF: 0 atorvastatin 80 mg Tablet 80 mg PO QHS Qty: 30 RF: 0 lisinopril 10 mg Tablet 10 mg PO DAILY Qty: 30 RF: 0 Discontinued naproxen 375 mg Tablet 375 mg PO BID PRN PRN (Reason: Pain) RF: 0 Referrals / Follow Up: Wilfredo Chapman MD [STAFF PHYSICIAN] - Within 2 Weeks (For new onset heart failure) Jacquie Sims MD [STAFF PHYSICIAN] - Within 1 Month (For iron deficiency anemia) Verónica Bo MD [STAFF PHYSICIAN] - Within 2 Weeks (For evaluation of anemia. GI work-up, EGD and colonoscopy has been -2 times in last 5 years) [facility] [Primary [facility] - Disposition Disposition (needs filled in before D/C Order can be placed): Home, self care
--- NOTE | 2020-07-26 11:10 | PCM.DC.SUM ---
Providers Date of Admission: 07/24/20 Primary Care Physician: [facility] Consultations 07/25/20 11:37 Consult: Cardiology Routine Consulting Provider: Fernando Bustos Reason for Consult: New onset HF, Consider Cath to r/o ischemia heart disease EMERGENT Consult: No MD Notified: Yes Date Notified: 07/24/20 Time Notified: 11:38 Method of Notification: Verbal Reason For Visit: CHF EXA, ANEMIA Diagnosis Discharge Diagnosis (1) Acute on chronic heart failure: Status: Chronic Code(s): I50.9 - Heart failure, unspecified Qualifiers: Heart failure type: combined systolic and diastolic Qualified Code(s): I50.43 - Acute on chronic combined systolic (congestive) and diastolic (congestive) heart failure Medications at Discharge Home Medications fluticasone propionate 2 spray INTRANASAL DAILY 07/24/20 gabapentin 300 mg PO TID 07/24/20 metformin 1,000 mg PO BIDCM 07/24/20 paroxetine HCl 20 mg PO QHS 07/24/20 trazodone 50 mg PO QHS 07/24/20 ascorbic acid (vitamin C) 500 mg PO BIDCM #60 tab 07/26/20 atorvastatin 80 mg PO QHS #30 tab 07/26/20 carvedilol 6.25 mg PO BID #60 tab 07/26/20 ferrous sulfate [FeroSul] 325 mg PO DAILY@1200 #90 tab 07/26/20 furosemide [Lasix] 40 mg PO BID #60 tab 07/26/20 glipizide 5 mg PO BID #60 tab 07/26/20 lisinopril 10 mg PO DAILY #30 tab 07/26/20 magnesium 250 mg PO DAILY #30 tab 07/26/20 nitroglycerin 0.4 mg SUBLINGUAL Q5M PRN #30 tab 07/26/20 sennosides-docusate sodium [Stool Softener-Stimulant Laxat] 2 tab PO BID PRN PRN #0 tab 07/26/20 spironolactone 25 mg PO DAILY #30 tab 07/26/20 Hospital Course Summary of Care Provided Hospital Course: alice BRADSHAW a 55 M was admitted through ER with progressive worsening of shortness of breath for 7 to 10 days along with leg swelling. EKG shows normal sinus tachycardia 113/min, QTC 477 ms with LVH. Pertinent abnormal labs H&H was found low 6.0/24, D-dimer 171, K3.6, glucose 247, AST 40, ALT 23. BNP 680. ABG 7.4 34/55/24 on room air. Chest x-ray showed bilateral pleural effusion with atelectasis and features of CHF. 1. Acute on chronic heart failure, systolic and diastolic combined etiology unclear, stage III heart failure: By history, it seems patient has slowly progressive worsening of heart failure. Patient is being admitted in PCU on cardiac telemetry. Serial troponin enzymes to rule out ischemia. 2D echo ordered. Lasix 40 mg IV twice daily. On lisinopril. Started on Coreg and patient was euvolemic. Seen by regional dedicated truck driver. Recommended work-up for anemia therefore GI was consulted but no opening of EGD tomorrow. Discussed with surgeon Dr. Sims. Advised follow-up EGD. Recommended continue medical management. 2D echo shows EF 45%, stage II diastolic function, RVSP 54 mmHg with moderate pulmonary hypertension suggestive of combined heart failure. TSH normal. Fasting profile shows LDL 116, total cholesterol 174. On atorvastatin 80 mg daily. Patient is discharged on Lasix 40 mg twice daily along with spironolactone 25 mg daily. 2. Hypertension with LVH on EKG, dyslipidemia: As mentioned above 3. Diabetes mellitus type 2: Glucose is elevated. Accu-Cheks before meals and at bedtime and cover with similar sliding scale. Patient is on Metformin and discharged on glipizide 5 mg twice daily. 4. Acute or chronic microcytic anemia: Hemogram shows low MCV, MCH and MCHC, most likely iron deficiency anemia. RDW elevated. Immature reticulocyte fraction 45.7%. Iron work-up shows severe undersensing anemia. Patient received 2 units of PRBC and 200 mg IV iron. Discharged on ferrous sulfate and vitamin C. Stool for occult blood negative. 07/25: Hemoglobin still remains low 6.7 therefore second unit of transfusion today along with Lasix. If no GI fluid found will need hematology follow-up. 5. Chronic smoker and substance use: UA and urine tox ordered. Patient advised to quit smoking and cocaine. VTE prophylaxis: Bilateral SCDs. Pharmacological prophylaxis contraindicated because of severe anemia. Discharge medication reconciliation done. Discharge follow-up instructions completed. Discharge process discussed with the patient and all questions were answered to patient's satisfaction. Follow-up to set up for regional dedicated truck driver, attorney recruiter and surgeon admission discharge instruction prescription sent to the pharmacy. Total time spent, exact 35 minutes on discharge meds reconciliation, examination, coordination of care with nurses and ancillary staff, review of imaging and blood test and discussion with the patient on follow-up instructions Physical Exam Narrative Seen and examined Patient is not on oxygen. Not short of breath. Denies chest pain or tightness. Sinus rhythm. Physical exam General: Alert, Oriented x3, Cooperative HEENT: Atraumatic, PERRLA, EOMI, Normocephalic Oral: No Gingival or Mucosal Lesions/ Ulcerations Neck: Supple, No JVD, Negative Carotid Bruits Lungs: Air entry equal in bilateral lung bases. Lungs clear. No orthopnea. Cardiovascular: Regular rate, Regular Rhythm, Normal S1, Normal S2, No murmurs Abdomen: Bowel Sounds Present, Soft, Non Tender, Non-Distended : No renal angle tenderness. No suprapubic tenderness. Extremities: Bilateral leg edema resolved. Capillary Refill Less than 3 Seconds Skin: No rashes, No breakdown Musculoskeletal: No Tenderness to Palpation of Joints or Extremities Neurological: Cranial nerves II-XII grossly intact, Deep Tendon Reflexes 2+/4 and Symmetrical, Neuro grossly intact Psych/Mental Status: Normal Affect, Appropriate. Weight / BMI Weight Weight: 192 lb 14.472 oz Body Mass Index (BMI) 24.7 ABG / Lab / Microbiology Data Result Diagrams: 07/26/20 04:52 07/26/20 04:52 Laboratory: Laboratory Results - last 24 hr 07/24/20 07/25/20 07/25/20 06:00 11:21 15:57 WBC RBC Hgb Hct MCV MCH MCHC RDW Std Deviation RDW Coeff of Prudence Plt Count Immature Gran % (Auto) Neut % (Auto) Lymph % (Auto) Callahan % (Auto) Eos % (Auto) Baso % (Auto) Absolute Neuts (auto) Absolute Lymphs (auto) Nucleated RBC % Immature Plt Fraction Polychromasia Hypochromasia Anisocytosis Microcytosis Macrocytosis Retic Count Immature Retic Fraction Retic Hgb Equivalent Sodium Potassium Chloride Carbon Dioxide Anion Gap BUN Creatinine Estim Creat Clear Calc Est GFR (MDRD) Af Amer Est GFR (MDRD) Non-Af BUN/Creatinine Ratio Glucose Calcium Magnesium Iron TIBC Iron Saturation Ferritin Vitamin B12 Folate POC Glucose 263 H 283 H Blood Type B POSITIVE Antibody Screen NEGATIVE Crossmatch See Detail 07/25/20 07/26/20 07/26/20 21:58 04:52 04:52 WBC 9.4 RBC 4.81 Hgb 8.2 L Hct 30.7 L MCV 63.8 L MCH 17.0 L MCHC 26.7 L D RDW Std Deviation 59.0 H RDW Coeff of Prudence 27.3 H Plt Count 365 Immature Gran % (Auto) 0.600 Neut % (Auto) 68.7 Lymph % (Auto) 20.2 Callahan % (Auto) 7.4 Eos % (Auto) 2.2 Baso % (Auto) 0.9 Absolute Neuts (auto) 6.5 Absolute Lymphs (auto) 1.90 Nucleated RBC % 0 Immature Plt Fraction 7.0 Polychromasia RARE Hypochromasia 3+ Anisocytosis 3+ Microcytosis 2+ Macrocytosis RARE Retic Count 1.12 Immature Retic Fraction 45.70 H Retic Hgb Equivalent 18.0 L Sodium 139 Potassium 3.6 Chloride 102 Carbon Dioxide 31.0 Anion Gap 6 BUN 12 Creatinine 0.76 Estim Creat Clear Calc 134.35 Est GFR (MDRD) Af Amer 138 Est GFR (MDRD) Non-Af 114 BUN/Creatinine Ratio 15.8 Glucose 159 H Calcium 8.4 L Magnesium 1.8 Iron 22 L TIBC 373 Iron Saturation 5.9 L Ferritin 9 L Vitamin B12 Folate POC Glucose 219 H Blood Type Antibody Screen Crossmatch 07/26/20 07/26/20 07/26/20 06:37 08:27 08:27 WBC RBC Hgb Hct MCV MCH MCHC RDW Std Deviation RDW Coeff of Prudence Plt Count Immature Gran % (Auto) Neut % (Auto) Lymph % (Auto) Callahan % (Auto) Eos % (Auto) Baso % (Auto) Absolute Neuts (auto) Absolute Lymphs (auto) Nucleated RBC % Immature Plt Fraction Polychromasia Hypochromasia Anisocytosis Microcytosis Macrocytosis Retic Count Immature Retic Fraction Retic Hgb Equivalent Sodium Potassium Chloride Carbon Dioxide Anion Gap BUN Creatinine Estim Creat Clear Calc Est GFR (MDRD) Af Amer Est GFR (MDRD) Non-Af BUN/Creatinine Ratio Glucose Calcium Magnesium Iron TIBC Iron Saturation Ferritin Vitamin B12 600 Folate 16.90 POC Glucose 152 H Blood Type Antibody Screen Crossmatch Microbiology: Microbiology 07/24/20 11:54 Stool Stool Occult Blood (JEFF) - Final 07/24/20 05:30 Mucosa - Nose SARS-CoV-2 Antigen (Rapid) - Final Radiography Diagnostic Testing: Radiology Impression Echocardiogram 07/24/20 09:50 Interpretation Summary Normal LV size. The estimated ejection fraction is 45 %. Moderate concentric left ventricular hypertrophy. Mild to moderately dilated aortic root. Stage 2 diastolic dysfunction. Pulmonary artery systolic pressure is 54 mmHg. Moderate pulmonary hypertension. The left atrium is mildly enlarged. The global longitudinal strain is moderately abnormal. The global longitudinal strain = -13% (abnormal). Ordering Physician: Jesus Aguila Referring Physician: [facility] Performed By: Kathy Fair, [place], RVT D/C Instructions Discharge Diet: 6 Cup Fluid Restriction and 2000 mg Sodium Diet Weight Bearing Status: Weight bearing as tolerated Call your doctor if you observe: Fever of 101 or Higher, Coldness, Increased Pain, Numbness or Tingling, Change in Color, Inability to urinate, Inability to have a bowel movement, Shortness of breath, Dizziness, Fainting spells, Swelling in the ankles, Chest pain, Prolonged hiccupping, Increased palpitations (irregular heartbeat), Calf discomfort and Uncontrolled pain Meaningful Use Info Meaningful Use Diagnoses (Choose all that apply): CHF CHF VICKY/ARB ordered at discharge?: Yes Documented LVEF (%): 45 Discharge Plan Admission Admit Date/Time: 07/24/20 07:41 Primary Reason for Your Visit: Acute systolic heart failure, severe ID anemia Attending Provider: Jesus Aguila Primary Care Provider: [facility],[place] Consulting Providers: Fernando Bustos Instructions Additional Instructions / Restrictions: Patient Problems: Altered Health Status related to Hospitalization Patient Goals: *Optimal Level of Health *Keep Appointments *Medication Compliance *Remain Safe Discharge Orders/Prescriptions Prescriptions: New sennosides-docusate sodium [Stool Softener-Stimulant Laxat] 8.6-50 mg Tablet 2 tab PO BID PRN PRN (Reason: Constipation) Qty: 0 RF: 0 ascorbic acid (vitamin C) 500 mg Tablet 500 mg PO BIDCM Qty: 60 RF: 0 ferrous sulfate [FeroSul] 325 mg (65 mg iron) Tablet 325 mg PO DAILY@1200 Qty: 90 RF: 0 nitroglycerin 0.4 mg Tablet, Sublingual 0.4 mg sublingual Q5M PRN (Reason: Cardiac/Chest Pain) Qty: 30 RF: 0 carvedilol 6.25 mg tablet 6.25 mg PO BID Qty: 60 RF: 2 glipizide 5 mg tablet 5 mg PO BID Qty: 60 RF: 0 spironolactone 25 mg tablet 25 mg PO DAILY Qty: 30 RF: 1 magnesium 250 mg tablet 250 mg PO DAILY Qty: 30 RF: 0 furosemide [Lasix] 40 mg tablet 40 mg PO BID Qty: 60 RF: 1 Continued metformin 500 mg Tablet 1,000 mg PO BIDCM RF: 0 paroxetine HCl 10 mg Tablet 20 mg PO QHS RF: 0 trazodone 50 mg Tablet 50 mg PO QHS RF: 0 gabapentin 300 mg Capsule 300 mg PO TID RF: 0 fluticasone propionate 50 mcg/actuation [place],Suspension 2 spray INTRANASAL DAILY RF: 0 atorvastatin 80 mg Tablet 80 mg PO QHS Qty: 30 RF: 0 lisinopril 10 mg Tablet 10 mg PO DAILY Qty: 30 RF: 0 Discontinued naproxen 375 mg Tablet 375 mg PO BID PRN PRN (Reason: Pain) RF: 0 Referrals / Follow Up: Wilfredo Chapman MD [STAFF PHYSICIAN] - Within 2 Weeks (For new onset heart failure) Jacquie Sims MD [STAFF PHYSICIAN] - Within 1 Month (For iron deficiency anemia) Verónica Bo MD [STAFF PHYSICIAN] - 07/30/20 9:00 am (For evaluation of anemia. GI work-up, EGD and colonoscopy has been -2 times in last 5 years) [facility] [Primary Care Provider] - (Please call for an appointment. I can not get a hold of anyone. ) Disposition Disposition (needs filled in before D/C Order can be placed): Home, self care Charges/Coding Visit Charges Inpatient E&M: 09927 Disch Hosp
[2020-07-26 11:55] LABS: Bedside Glucose 299 mg/dL (70-110)
--- NOTE | 2020-07-26 11:59 | CASEMGMT ---
Pt to be discharged and voiced no further questions/concerns/needs. SStaten RN CM
[2020-07-26] MEDS: Ferrous Sulfate 325 MG Tablet PO (12:00)
[2020-07-26 14:03] VITALS: PULSE 81
--- NOTE | 2020-07-26 14:48 | PN.CARD_ITS ---
Subjective Subjective Patient feels better today. Objective Data Vital Signs: Vital Signs Temp Pulse Resp BP Pulse Ox 98.3 F 81 18 138/86 H 96 07/26/20 09:43 07/26/20 14:03 07/26/20 09:43 07/26/20 09:43 07/26/20 09:43 Oxygen Flow Rate (L/min) 2 Oxygen Delivery Method Room Air Weight: 192 lb 14.472 oz Body Mass Index (BMI) 24.7 Intake & Output: Intake and Output for Last 24 Hours 07/24/20 07/25/20 07/26/20 23:59 23:59 23:59 Intake Total 1344 / 1584 1829 / 1829 335 / 335 Output Total 2750 / 4750 6875 / 6875 1700 / 1700 Balance -1406 / -3166 -5046 / -5046 -1365 / -1365 Lab / Micro Data Result Diagrams: 07/26/20 04:52 07/26/20 04:52 Labs: Laboratory Results - last 24 hr 07/24/20 07/25/20 07/25/20 06:00 15:57 21:58 WBC RBC Hgb Hct MCV MCH MCHC RDW Std Deviation RDW Coeff of Prudence Plt Count Immature Gran % (Auto) Neut % (Auto) Lymph % (Auto) [place] % (Auto) Eos % (Auto) Baso % (Auto) Absolute Neuts (auto) Absolute Lymphs (auto) Nucleated RBC % Immature Plt Fraction Polychromasia Hypochromasia Anisocytosis Microcytosis Macrocytosis Retic Count Immature Retic Fraction Retic Hgb Equivalent Sodium Potassium Chloride Carbon Dioxide Anion Gap BUN Creatinine Estim Creat Clear Calc Est GFR (MDRD) Af Amer Est GFR (MDRD) Non-Af BUN/Creatinine Ratio Glucose Calcium Magnesium Iron TIBC Iron Saturation Ferritin Vitamin B12 Folate POC Glucose 283 H 219 H Crossmatch See Detail 07/26/20 07/26/20 07/26/20 04:52 04:52 06:37 WBC 9.4 RBC 4.81 Hgb 8.2 L Hct 30.7 L MCV 63.8 L MCH 17.0 L MCHC 26.7 L D RDW Std Deviation 59.0 H RDW Coeff of Prudence 27.3 H Plt Count 365 Immature Gran % (Auto) 0.600 Neut % (Auto) 68.7 Lymph % (Auto) 20.2 Storey % (Auto) 7.4 Eos % (Auto) 2.2 Baso % (Auto) 0.9 Absolute Neuts (auto) 6.5 Absolute Lymphs (auto) 1.90 Nucleated RBC % 0 Immature Plt Fraction 7.0 Polychromasia RARE Hypochromasia 3+ Anisocytosis 3+ Microcytosis 2+ Macrocytosis RARE Retic Count 1.12 Immature Retic Fraction 45.70 H Retic Hgb Equivalent 18.0 L Sodium 139 Potassium 3.6 Chloride 102 Carbon Dioxide 31.0 Anion Gap 6 BUN 12 Creatinine 0.76 Estim Creat Clear Calc 134.35 Est GFR (MDRD) Af Amer 138 Est GFR (MDRD) Non-Af 114 BUN/Creatinine Ratio 15.8 Glucose 159 H Calcium 8.4 L Magnesium 1.8 Iron 22 L TIBC 373 Iron Saturation 5.9 L Ferritin 9 L Vitamin B12 Folate POC Glucose 152 H Crossmatch 07/26/20 07/26/20 07/26/20 08:27 08:27 11:49 WBC RBC Hgb Hct MCV MCH MCHC RDW Std Deviation RDW Coeff of Prudence Plt Count Immature Gran % (Auto) Neut % (Auto) Lymph % (Auto) [place]y % (Auto) Eos % (Auto) Baso % (Auto) Absolute Neuts (auto) Absolute Lymphs (auto) Nucleated RBC % Immature Plt Fraction Polychromasia Hypochromasia Anisocytosis Microcytosis Macrocytosis Retic Count Immature Retic Fraction Retic Hgb Equivalent Sodium Potassium Chloride Carbon Dioxide Anion Gap BUN Creatinine Estim Creat Clear Calc Est GFR (MDRD) Af Amer Est GFR (MDRD) Non-Af BUN/Creatinine Ratio Glucose Calcium Magnesium Iron TIBC Iron Saturation Ferritin Vitamin B12 600 Folate 16.90 POC Glucose 299 H Crossmatch Micro: Microbiology 07/24/20 11:54 Stool Stool Occult Blood (JEFF) - Final 07/24/20 05:30 Mucosa - Nose SARS-CoV-2 Antigen (Rapid) - Final Cardiology Labs/Tests 07/26/20 04:52: WBC 9.4, RBC 4.81, Hgb 8.2 L, Hct 30.7 L, MCV 63.8 L, MCH 17.0 L , MCHC 26.7 L D, Plt Count 365, Immature Gran % (Auto) 0.600, Neut % (Auto) 68.7, Lymph % (Auto) 20.2, Storey % (Auto) 7.4, Eos % (Auto) 2.2, Baso % (Auto) 0.9, Absolute Neuts (auto) 6.5, Nucleated RBC % 0 07/26/20 04:52: Sodium 139, Potassium 3.6, Chloride 102, Carbon Dioxide 31.0, Anion Gap 6, BUN 12, Creatinine 0.76, Est GFR (MDRD) Af Amer 138, Est GFR (MDRD) Non-Af 114, BUN/Creatinine Ratio 15.8, Glucose 159 H, Calcium 8.4 L, Magnesium 1.8, Iron 22 L, TIBC 373, Iron Saturation 5.9 L, Ferritin 9 L Rhythm: EKG: ECHO: Stress Test: Cardiac Cath: PCI: CT Surgery: Holter monitor: EPS: PPM: CXR: Chest CT Scan: Physical Exam Const alert and oriented x3 Orientation / Consciousness: awake HEENT normocephalic Eyes no scleral icterus Neck supple Chest inspection of chest normal Resp clear to auscultation bilaterally Cardio regular rate Extremity no pedal edema Skin no rashes or lesions noted Psych mental status grossly normal Assessment & Plan Assessment/Plan (1) Acute on chronic heart failure: QUALIFIERS: Heart failure type: combined systolic and diastolic Qualified Code(s): I50.43 - Acute on chronic combined systolic (congestive) and diastolic (congestive) heart failure PLAN: Patient responded well to Lasix. He does have low EF on echo. He did have chest tightness as well. He would need coronary angiography. However patient has significant anemia that needs to be investigated first. He does not have any evidence of acute coronary syndrome. Coronary angiography could be done as an outpatient. Agree with switching Lasix to p.o. Charges/Coding Visit Charges Inpatient E&M: 87504 Subs Hosp L3
--- NOTE | 2020-07-30 14:59 | CASEMGMT ---
AKILA MAYES Discharge Follow-up Phone Call: JANEEN: Genoveva Strata: 3 Call Date: 07/30/20 Discharge Date: 07/26/20 Time of Call: 1458 Duration: 3 min Admitting Diagnosis: CHF exacerbation, anemia AKILA MAYES completed follow-up phone call after recent hospitalization. Patient states he is doing well. Patient had no questions regarding discharge instructions. Patient states he was able to fill prescriptions without any issues. Patient states that he cancelled his appts for follow-up in [place] and [facility] as his appts would not be covered here. Patient had no further questions or concerns at this time.
== END 2020-07-26 15:05 | disposition home or self-care (01) | DRG 292 ==
LOC: ED 06:40 → PCU 07:52
PROVIDERS: Admitting Provider Internal Medicine; Emergency Provider Emergency Medicine; Visit Provider Internal Medicine
DX: I11.0 Hypertensive heart disease with heart failure (principal); J98.11 Atelectasis; I50.43 Acute on chronic combined systolic (congestive) and diastolic (congestive) heart failure; D50.9 Iron deficiency anemia, unspecified; E78.5 Hyperlipidemia, unspecified; F17.210 Nicotine dependence, cigarettes, uncomplicated; F14.90 Cocaine use, unspecified, uncomplicated; F32.9 Major depressive disorder, single episode, unspecified; F41.9 Anxiety disorder, unspecified; E11.9 Type 2 diabetes mellitus without complications; I27.20 Pulmonary hypertension, unspecified; Z79.84 Long term (current) use of oral hypoglycemic drugs; Z79.899 Other long term (current) drug therapy
CPT/HCPCS: 36415; 36600; 71275; 80048; 80061; 80076; 82274; 82607; 82728; 82746; 82803; 82962; 83540; 83550; 83735; 83880; 84100; 84443; 84484; 85025; 85045; 85379; 86850; 86900; 86901; 86920; 86922; 87426; 93005; 93306; 94640; 99251; 99285; 99406; J7030; J7040; J7050; P9016; P9040; Q9967; A4216; G0463; J1940; J2916

== ENCOUNTER 2021-12-06 13:57 | Inpatient (IN) | payer OTHER, SELFPAY ==
[2021-12-06] VITALS (17 sets, daily range): BP systolic 156–203; BP diastolic 45–124; PULSE 70–99; RESP 16–25; TEMP 36.6–36.7; O2SAT 95–99; BMI 26.0; BMI 24.9
--- NOTE | 2021-12-06 14:04 | CT_ITS ---
We are attempting to reach an attending provider to discuss findings. An addendum with communication details will be sent when the communication is complete. EXAM: CT ANGIOGRAPHY HEAD AND NECK WITH INTRAVENOUS CONTRAST CLINICAL INDICATION: Neuro deficit, acute, stroke suspected TECHNIQUE: [place] [facility] [place]/head and neck CT angiography protocol performed with intravenous contrast. This CT exam was performed using one or more of the following dose reduction techniques: automated exposure control, adjustment of the mA and/or kV according to patient size, and/or use of iterative reconstruction technique. This report was created using Onfan report generation technology. MIP reconstructed images were created and reviewed. CONTRAST: IV 100mL Isovue-300 RADIATION DOSE: CTDIvol = 43.40 mGy, DLP = 859.02 mGy-cm COMPARISON: None. FINDINGS: HEAD: RIGHT ANTERIOR CEREBRAL ARTERY: Unremarkable. No significant stenosis at the visualized segments. Anterior communicating artery is present. No aneurysm. RIGHT MIDDLE CEREBRAL ARTERY: Unremarkable. No significant stenosis at the visualized segments. No aneurysm. RIGHT POSTERIOR CEREBRAL ARTERY: Unremarkable. No occlusion or significant stenosis. No aneurysm. RIGHT INTRACRANIAL INTERNAL CAROTID ARTERY: See below. RIGHT INTRACRANIAL VERTEBRAL ARTERY: Unremarkable. No significant stenosis. No dissection or occlusion. LEFT ANTERIOR CEREBRAL ARTERY: Unremarkable. No significant stenosis at the visualized segments. No aneurysm. LEFT MIDDLE CEREBRAL ARTERY: Unremarkable. No significant stenosis at the visualized segments. No aneurysm. LEFT POSTERIOR CEREBRAL ARTERY: Unremarkable. No occlusion or significant stenosis. No aneurysm. LEFT INTRACRANIAL INTERNAL CAROTID ARTERY: See below. LEFT INTRACRANIAL VERTEBRAL ARTERY: Unremarkable. No significant stenosis. No dissection or occlusion. BASILAR ARTERY: Unremarkable. No significant stenosis. No aneurysm. OTHER VASCULATURE: There is mild atherosclerotic plaque formation of the origin of the right internal carotid artery with less than 50% cross sectional diameter stenosis. ALL ABOVE CRITERIA BY NASCET. There is mild atherosclerotic plaque formation of the origin of the left internal carotid artery with less than 50% cross sectional diameter stenosis. ALL ABOVE CRITERIA BY NASCET. There is calcified plaque formation of the right cavernous carotid artery, with a mild stenosis (less than 50%). ALL ABOVE CRITERIA BY NASCET. NECK: RIGHT COMMON CAROTID ARTERY: Unremarkable. No significant stenosis. No dissection or occlusion. RIGHT EXTRACRANIAL INTERNAL CAROTID ARTERY: See above. RIGHT EXTERNAL CAROTID ARTERY: Unremarkable. No occlusion. RIGHT EXTRACRANIAL VERTEBRAL ARTERY: Unremarkable. No significant stenosis. No dissection or occlusion. LEFT COMMON CAROTID ARTERY: Unremarkable. No significant stenosis. No dissection or occlusion. LEFT EXTRACRANIAL INTERNAL CAROTID ARTERY: See above. LEFT EXTERNAL CAROTID ARTERY: Unremarkable. No occlusion. LEFT EXTRACRANIAL VERTEBRAL ARTERY: Unremarkable. No significant stenosis. No dissection or occlusion. GREAT VESSELS OF AORTIC ARCH: There is calcified plaque formation of the left cavernous carotid artery, with a mild stenosis (less than 50%). ALL ABOVE CRITERIA BY NASCET. LUNG APICES: Unremarkable as visualized. HEAD and NECK: BONES/JOINTS: There are degenerative findings of the cervical spine. No discrete lytic or blastic abnormalities. SOFT TISSUES: Unremarkable. Critical finding called and case discussed. CAROTID STENOSIS REFERENCE USING NASCET CRITERIA: % ICA stenosis = (1 - narrowest ICA diameter/diameter of distal cervical ICA) x 100. Mild - <50% stenosis. Moderate - 50-69% stenosis. Severe - 70-94% stenosis. Near occlusion - 95-99% stenosis. Occluded - 100% stenosis. CT/STROKE CTA Head AND Neck W/Con IMPRESSION: 1. There is mild atherosclerotic plaque formation of the origin of the right internal carotid artery with less than 50% cross sectional diameter stenosis. ALL ABOVE CRITERIA BY NASCET. 2. There is mild atherosclerotic plaque formation of the origin of the left internal carotid artery with less than 50% cross sectional diameter stenosis. ALL ABOVE CRITERIA BY NASCET. 3. There is calcified plaque formation of the right cavernous carotid artery, with a mild stenosis (less than 50%). ALL ABOVE CRITERIA BY NASCET. 4. There is calcified plaque formation of the left cavernous carotid artery, with a mild stenosis (less than 50%). ALL ABOVE CRITERIA BY NASCET. Electronically Signed: Quentin Lau MD at 14:43 EDT ,
--- NOTE | 2021-12-06 14:04 | EKG12_ITS ---
Test Reason : STROKE TEAM Blood Pressure : / mmHG Vent. Rate : 077 BPM Atrial Rate : 077 BPM P-R Int : 184 ms QRS Dur : 098 ms QT Int : 430 ms P-R-T Axes : 026 016 242 degrees QTc Int : 486 ms Normal sinus rhythm Possible Left atrial enlargement Left ventricular hypertrophy ( R in aVL , Sokolow-Narayan , [place] product , Romhilt-Neo ) ST & T wave abnormality, consider lateral ischemia vs repolarization abnormality Prolonged QT Abnormal ECG Confirmed by DOMO URBAN, HOLLY ([id number]), health editor DREA BELLE ([id number]) on 12/08/2021 9:20:32 AM Referred By: Confirmed By:HOLLY OLIVEROS MD
--- NOTE | 2021-12-06 14:04 | CT_ITS ---
We are attempting to reach an attending provider to discuss findings. An addendum with communication details will be sent when the communication is complete. STUDY: CT BRAIN WITHOUT CONTRAST REASON FOR EXAM: Male, 56 years old. Neuro deficit, acute, stroke suspected Individualized dose optimization techniques were used for this CT. TECHNIQUE: Transaxial CT imaging of the brain was performed without administration of intravenous contrast material. COMPARISON: None FINDINGS: There are calcifications around the carotid artery. These are noted in the cavernous carotid arteries. Normal calvarium. Normal soft tissues. There is mild cerebral atrophy with widening of the extra-axial spaces and ventricular dilatation. There are areas of decreased attenuation within the white matter tracts of the supratentorial brain, consistent with microvascular disease changes. Normal basal ganglia and thalami. Normal brainstem. There is mild cerebellar atrophy. There is no intracranial hemorrhage. There are findings of areas of low-density in the left frontal parietal lobe and left parietal lobe suggesting an acute ischemic infarction. Se 2 IM32 and Se 2 IM: 26. Normal visualized paranasal sinuses. ASPECTS Score for Acute Strokes: 8/10 CT/STROKE Brain/Head without Cont IMPRESSION: There are findings of areas of low-density in the left frontal parietal lobe and left parietal lobe suggesting an acute ischemic infarction. Chronic involutional changes of the brain. Critical finding called and case discussed. Electronically Signed: Quentin Lau MD at 14:20 EDT ,
--- NOTE | 2021-12-06 14:05 | EDS_ITS ---
HPI History of Present Illness Chief Complaint: Neuro S/Sx Narrative Narrative: Patient presents with slurred speech that started when he woke up this morning. He was okay going to bed around midnight last night and then he woke up with speech difficulty. He also has some right-sided facial droop. He tells me it is hard to find the words, per he was much worse this morning where he could not find any words and anything he said came out as gibberish. PFSH PFSH Medical History Anxiety Congestive heart failure Depression Diabetes mellitus, type 2 Dyslipidemia Hypertension Smoker Home Medications fluticasone propionate 50 mcg/actuation nasal spray,suspension 2 spray intranasal DAILY allergies 07/24/20 [History Last Taken Unknown] gabapentin 300 mg capsule 300 mg PO TID neuropathy 07/24/20 [History Last Taken Unknown] metformin 500 mg tablet 1,000 mg PO BIDCM diabetes 07/24/20 [History Last Taken Unknown] paroxetine HCl 10 mg tablet 20 mg PO QHS depression 07/24/20 [History Last Taken Unknown] trazodone 50 mg tablet 50 mg PO QHS sleep 07/24/20 [History Last Taken Unknown] ascorbic acid (vitamin C) 500 mg tablet 500 mg PO BIDCM #60 tabs 07/26/20 [Rx Last Taken Unknown] carvedilol 6.25 mg tablet 6.25 mg PO BID #60 tabs 07/26/20 [Rx Last Taken Unknown] furosemide 40 mg tablet (Lasix) 40 mg PO BID #60 tabs 07/26/20 [Rx Last Taken Unknown] nitroglycerin 0.4 mg sublingual tablet 0.4 mg sublingual Q5M PRN Cardiac/Chest Pain #30 tabs 07/26/20 [Rx Last Taken Unknown] spironolactone 25 mg tablet 25 mg PO DAILY #30 tabs 07/26/20 [Rx Last Taken Unk nown] lisinopril 10 mg tablet 20 mg PO DAILY blood pressure 12/06/21 [History Last Taken Unknown] Allergy/AdvReac Type Severity Reaction Status Date / Time No Known Allergies Allergy Verified 12/06/21 14:04 Social History Smoking Status: Current every day smoker tobacco type: cigarettes ROS ROS ED ROS Narrative Past medical history: Reviewed, includes diabetes hypertension, hypercholesterolemia Medications: Reviewed Social history: Noncontributory Review of systems: All systems negative except as indicated General: No fever Eyes: No visual changes ENT: No upper airway congestion, Neck: No neck pain Cardiovascular: No chest pain Respiratory: No shortness of breath or cough Gastrointestinal: No abdominal pain, nausea vomiting or diarrhea Genitourinary: No dysuria Musculoskeletal: Denies myalgias no difficulty with ambulation Skin: No rash Neurological: As in HPI Psych: No recent behavioral changes Hematologic: No easy bleeding or easy bruising EXAM Physical Exam Narrative Exam Narrative: Physical exam General: Well nourished, Well developed, No Acute Distress Head: Normocephalic, Atraumatic Eyes: Conjunctiva not pale ENT: Moist mucous membranes Neck: Supple, Nontender, No lymphadenopathy Cardiovascular: Regular rate, Regular rhythm Respiratory: No distress, CTA bilaterally Abdomen: Soft, Nontender, Nondistended Back: Nontender, Normal Inspection. Negative for: CVA tenderness Extremities: Nontender, No edema Skin: Normal color, No rash Neurological: See NIH stroke scale Psychological: Normal affect Const Vital Signs: 12/06/21 13:58 12/06/21 14:30 12/06/21 14:30 Temperature 97.9 F Temperature Source Temporal Pulse Rate 99 82 82 Respiratory Rate 22 H 17 16 Blood Pressure 203/124 H 188/108 H 188/108 H Blood Pressure Mean 150 134 134 Pulse Ox 98 97 98 Oxygen Delivery Method Room Air Room Air Room Air 12/06/21 15:00 12/06/21 15:00 12/06/21 15:24 Temperature Temperature Source Pulse Rate 80 88 Respiratory Rate 17 17 Blood Pressure 161/109 H 161/109 H Blood Pressure Mean 126 126 Pulse Ox 98 98 98 Oxygen Delivery Method Room Air Room Air Room Air 12/06/21 15:39 Temperature Temperature Source Pulse Rate 77 Respiratory Rate 17 Blood Pressure 173/96 H Blood Pressure Mean 121 Pulse Ox 99 Oxygen Delivery Method Room Air NIHSS NIHSS Initial: 1a Level of Consciousness: 0 1b LOC Questions (Score 2 if aphasic/stupor): 0 1c LOC Commands (Only score 1st attempt): 0 2 Best Gaze (If aphasic, use reflexive mvmts.): 0 3 Visual: 0 4 Facial Palsy: 1 5 Motor Arm Right (UN = amputation/fusion): 0 5 Motor Arm Left: 0 6 Motor Leg Right: 0 6 Motor Leg Left: 0 7 Limb ataxia (Only + if out of proportion): 0 8 Sensory (Aphasia/stupor=0 or 1, coma=2): 0 9 Best Language: 1 10 Dysarthria (mute, coma=2, intubated=UN): 0 11 Extinction and Inattention (only scored if +): 0 Total Score: [address] [facility] Lab Data Labs: Laboratory Results - last 24 hr 12/06/21 12/06/21 12/06/21 14:00 14:05 14:05 WBC 10.2 RBC 4.91 Hgb 13.6 Hct 40.7 MCV 82.9 MCH 27.7 MCHC 33.4 RDW Std Deviation 50.6 H RDW Coeff of Prudence 16.7 H Plt Count 299 MPV 11.4 Immature Gran % (Auto) 0.200 Neut % (Auto) 73.7 H Lymph % (Auto) 17.9 L [place] % (Auto) 7.2 Eos % (Auto) 0.6 Baso % (Auto) 0.4 Absolute Neuts (auto) 7.6 Absolute Lymphs (auto) 1.83 Nucleated RBC % 0 PT 12.6 INR 1.0 APTT 28.1 Sodium Potassium Chloride Carbon Dioxide Anion Gap BUN Creatinine Estim Creat Clear Calc Est GFR (MDRD) Af Amer Est GFR (MDRD) Non-Af BUN/Creatinine Ratio Glucose Calcium Troponin I High Sens POC Glucose 358 H 12/06/21 14:05 WBC RBC Hgb Hct MCV MCH MCHC RDW Std Deviation RDW Coeff of Prudence Plt Count MPV Immature Gran % (Auto) Neut % (Auto) Lymph % (Auto) [place] % (Auto) Eos % (Auto) Baso % (Auto) Absolute Neuts (auto) Absolute Lymphs (auto) Nucleated RBC % PT INR APTT Sodium 135 L Potassium 3.6 Chloride 101 Carbon Dioxide 29.0 Anion Gap 5 BUN 16 Creatinine 1.20 Estim Creat Clear Calc 84.11 Est GFR (MDRD) Af Amer 81 Est GFR (MDRD) Non-Af 67 BUN/Creatinine Ratio 13.3 Glucose 363 H Calcium 8.4 L Troponin I High Sens 795 H* POC Glucose Radiography Diagnostic Testing: Clinical Impression(s) from Imaging Studies Brain CT 12/06/21 14:04 IMPRESSION: There are findings of areas of low-density in the left frontal parietal lobe and left parietal lobe suggesting an acute ischemic infarction. Chronic involutional changes of the brain. Critical finding called and case discussed. Electronically Signed: Quentin Lau MD at 14:20 EDT , ADDENDUM: 12/06/21 1430 IMPRESSION: There are findings of areas of low-density in the left frontal parietal lobe and left parietal lobe suggesting an acute ischemic infarction. Chronic involutional changes of the brain. Critical finding called and case discussed. N.B. : The above Results were Read Back by Quentin Lau MD to Beto Roberts MD, and understanding confirmed on 12/06/2021 14:23:33 (ET). Electronically Signed: Quentin Lau MD at 14:20 EDT , Head/Neck CTA 12/06/21 14:04 IMPRESSION: 1. There is mild atherosclerotic plaque formation of the origin of the right internal carotid artery with less than 50% cross sectional diameter stenosis. ALL ABOVE CRITERIA BY NASCET. 2. There is mild atherosclerotic plaque formation of the origin of the left internal carotid artery with less than 50% cross sectional diameter stenosis. ALL ABOVE CRITERIA BY NASCET. 3. There is calcified plaque formation of the right cavernous carotid artery, with a mild stenosis (less than 50%). ALL ABOVE CRITERIA BY NASCET. 4. There is calcified plaque formation of the left cavernous carotid artery, with a mild stenosis (less than 50%). ALL ABOVE CRITERIA BY NASCET. Electronically Signed: Quentin Lau MD at 14:43 EDT , ADDENDUM: 12/06/21 1451 IMPRESSION: 1. There is mild atherosclerotic plaque formation of the origin of the right internal carotid artery with less than 50% cross sectional diameter stenosis. ALL ABOVE CRITERIA BY NASCET. 2. There is mild atherosclerotic plaque formation of the origin of the left internal carotid artery with less than 50% cross sectional diameter stenosis. ALL ABOVE CRITERIA BY NASCET. 3. There is calcified plaque formation of the right cavernous carotid artery, with a mild stenosis (less than 50%). ALL ABOVE CRITERIA BY NASCET. 4. There is calcified plaque formation of the left cavernous carotid artery, with a mild stenosis (less than 50%). ALL ABOVE CRITERIA BY NASCET. N.B. : The above Results were Read Back by Quentin Lau MD to Beto Roberts MD, and understanding confirmed on 12/06/2021 14:44:14 (ET). Electronically Signed: Quentin Lau MD at 14:43 EDT , Patient's work-up is consistent with a parietal stroke. There is no intervention needed based on the CT angiogram. Patient also had an elevated troponin, as well as ST changes laterally on the EKG. This may be secondary to the stroke which can happen although he will need a cardiac intervention work- up. I talked to both cardiology and stroke neurology at this time there is no indication for heparin drip, especially that the patient has no chest pain back pain or shortness of breath. I specifically asked stroke neurology if the patient is stable at this facility, he believes he is, this is a stroke center and we have cardiac intervention if needed. Critical Care Time Critical Care Time: Yes Critical care time (excluding procedures): 30-74 minutes and - (Critical care time is 35 minutes. Patient has an acute stroke with EKG changes and elevated troponin multiple calls were made I spent quite a bit of time at the bedside.) Discharge Plan Triage Chief Complaint: Neuro S/Sx ED Provider: Beto Roberts Dx/Rx/DC Orders Clinical Impression: Acute CVA (cerebrovascular accident), Elevated troponin, Acute electrocardiogram changes Prescriptions: No Action metformin 500 mg Tablet 1,000 mg PO BIDCM paroxetine HCl 10 mg Tablet 20 mg PO QHS trazodone 50 mg Tablet 50 mg PO QHS gabapentin 300 mg Capsule 300 mg PO TID fluticasone propionate 50 mcg/actuation [place],Suspension 2 spray INTRANASAL DAILY ascorbic acid (vitamin C) 500 mg Tablet 500 mg PO BIDCM Qty: 60 0RF nitroglycerin 0.4 mg Tablet, Sublingual 0.4 mg sublingual Q5M PRN (Reason: Cardiac/Chest Pain) Qty: 30 0RF carvedilol 6.25 mg tablet 6.25 mg PO BID Qty: 60 2RF Rx Instructions: must administer with a meal/food spironolactone 25 mg tablet 25 mg PO DAILY Qty: 30 1RF furosemide [Lasix] 40 mg tablet 40 mg PO BID Qty: 60 1RF lisinopril 10 mg tablet 20 mg PO DAILY Rx Instructions: Hold for SBP less than 120 mmHg [facility] [Primary Care Provider] - Disposition Disposition: Acute Care Hospital [facility]
[2021-12-06 14:12] LABS: Absolute Lymphocyte Count 1.83 X10^3/uL (0.83-4.51); Absolute Neutrophil Count 7.6 X10^3/uL (2.0-7.7); Basophil# 0.04 X10^3/uL; Basophil% 0.4 % (0-1); Eosinophil# 0.06 X10^3/uL; Eosinophils% 0.6 % (0-5); Hematocrit 40.7 % (40-54); Hemoglobin 13.6 g/dL (13.0-16.5); Lymphocyte # 1.83 X10^3/ul (0.83-4.51); Lymphocyte % 17.9 % (19-41); Mean Corp Hgb Conc 33.4 g/dL (32-36); Mean Corpuscular Hgb 27.7 pg (27.0-32.0); Mean Corpuscular Volume 82.9 fL (80-94); Mean Platelet Vol. 11.4 fl (6.2-12.0); Monocyte# 0.74 X10^3/uL; Monocyte% 7.2 % (0-10); NRBC Flagged by Analyzer 0 % (0-5); Neutrophil # 7.55 X10^3/uL (2.7-7.7); Neutrophil % 73.7 % (47-70); Platelet Count 299 K/mm3 (150-450); RBC Distribution Width CV 16.7 % (11.6-14.6); RBC Distribution Width SD 50.6 fl (35.1-43.9); Red Blood Count 4.91 M/mm3 (4.6-6.2); White Blood Count 10.2 K/mm3 (4.4-11.0)
[2021-12-06 14:26] LABS: Prothrombin Time (Protime)PT. 12.6 SECONDS (11.7-14.9)
[2021-12-06 14:27] LABS: Partial Thromboplast Time 28.1 Seconds (24.1-36.2)
[2021-12-06 14:42] LABS: Anion Gap 5 (5-15); BUN 16 mg/dL (7-18); BUN/Creat Ratio 13.3 RATIO (10-20); Calcium,Total 8.4 mg/dL (8.5-10.1); Chloride 101 mmol/L (98-107); EST Glomerular Filtration Rate 67 mL/min (>60); Est Glom Filt Rate - Afr Amer 81 mL/min (>60); Estimated Creatinine Clearance 84.11 ml/min; Glucose 363 mg/dL (74-106); Potassium 3.6 mmol/L (3.5-5.1); Sodium Level 135 mmol/L (136-145); Troponin-I HS 795 pg/mL (3.0-78.0)
[2021-12-06 14:46] LABS: Bedside Glucose 358 mg/dL (74-106)
--- NOTE | 2021-12-06 16:30 | PCM.HP.STD ---
HPI - General General Date of Admission: 12/06/21 HPI Narrative OLIVER CRAMER, is a 56 M who presents to the hospital complaining of dysarthria. He went to bed last night and was normal but this morning he woke up and he had difficulty speaking. He can answer simple questions with yes and no but anything more in depth he has difficulty finding words. CTA of his head and neck is unremarkable and the CT of his brain shows a left frontal parietal lobe and a left parietal lobe ischemic infarction. When he also presented despite not having chest shortness of breath an initial troponin was obtained and it was 795. Because he is outside of the window for tPA the situation was discussed with neurology who felt that he would be safe on neurological protocol for heparin drip given his elevated troponin. He does have a cardiac history with a reduced EF as well as a stage II diastolic dysfunction. [facility] Medical History Anxiety Congestive heart failure Depression Diabetes mellitus, type 2 Dyslipidemia Hypertension Smoker Home Medications fluticasone propionate 50 mcg/actuation nasal spray,suspension 2 spray intranasal DAILY allergies 07/24/20 [History Last Taken Unknown] gabapentin 300 mg capsule 300 mg PO TID neuropathy 07/24/20 [History Last Taken Unknown] metformin 500 mg tablet 1,000 mg PO BIDCM diabetes 07/24/20 [History Last Taken Unknown] paroxetine HCl 10 mg tablet 20 mg PO QHS depression 07/24/20 [History Last Taken Unknown] trazodone 50 mg tablet 50 mg PO QHS sleep 07/24/20 [History Last Taken Unknown] ascorbic acid (vitamin C) 500 mg tablet 500 mg PO BIDCM #60 tabs 07/26/20 [Rx Last Taken Unknown] carvedilol 6.25 mg tablet 6.25 mg PO BID #60 tabs 07/26/20 [Rx Last Taken Unknown] furosemide 40 mg tablet (Lasix) 40 mg PO BID #60 tabs 07/26/20 [Rx Last Taken Unknown] nitroglycerin 0.4 mg sublingual tablet 0.4 mg sublingual Q5M PRN Cardiac/Chest Pain #30 tabs 07/26/20 [Rx Last Taken Unknown] spironolactone 25 mg tablet 25 mg PO DAILY #30 tabs 07/26/20 [Rx Last Taken Unknown] lisinopril 10 mg tablet 20 mg PO DAILY blood pressure 12/06/21 [History Last Taken Unknown] Allergy/AdvReac Type Severity Reaction Status Date / Time No Known Allergies Allergy Verified 12/06/21 14:04 Family History (Updated 12/06/21 @ 17:[address] Kavon Mandel MD) Other Diabetes Heart disease Hypertension Surgical History unable to obtain unable to obtain Social History Smoking Status: Current every day smoker tobacco type: cigarettes ROS Constitutional Constitutional: Denies chills, fatigue, fever(s) or malaise Eyes Eyes: Denies blurry vision ENT HEENT: Denies headache(s) or nasal discharge Cardiovascular Cardiovascular: Denies chest pain, dyspnea on exertion or syncope Respiratory/Chest Respiratory/Chest: Denies cough, shortness of breath at rest or shortness of breath with exertion Gastrointestinal Gastrointestinal: Denies constipation, diarrhea, nausea or vomiting Genitourinary Genitourinary: Denies dysuria Neurologic Neurologic: Reports abnormal speech; Denies focal weakness, numbness or tremor(s) Psychiatric Psychiatric: Denies anxiety or depression Vital Signs Vital Signs Vital Signs: 12/06/21 13:58 12/06/21 14:30 12/06/21 14:30 Temperature 97.9 F Temperature Source Temporal Pulse Rate 99 82 82 Respiratory Rate 22 H 17 16 Blood Pressure 203/124 H 188/108 H 188/108 H Blood Pressure Mean 150 134 134 Pulse Ox 98 97 98 Oxygen Delivery Method Room Air Room Air Room Air 12/06/21 15:00 12/06/21 15:00 12/06/21 15:24 Temperature Temperature Source Pulse Rate 80 88 Respiratory Rate 17 17 Blood Pressure 161/109 H 161/109 H Blood Pressure Mean 126 126 Pulse Ox 98 98 98 Oxygen Delivery Method Room Air Room Air Room Air 12/06/21 15:39 12/06/21 16:18 12/06/21 16:18 Temperature Temperature Source Pulse Rate 77 80 78 Respiratory Rate 17 19 H 21 H Blood Pressure 173/96 H 193/113 H 193/113 H Blood Pressure Mean 121 139 139 Pulse Ox 99 99 99 Oxygen Delivery Method Room Air Room Air Room Air Weight Weight: 208 lb 8.917 oz Body Mass Index (BMI) 26.0 Physical Exam Narrative General: Alert, Oriented x3, Cooperative, No apparent distress HEENT: Atraumatic, PERRLA, EOMI, Normocephalic Oral: Moist Mucosa Neck: Supple, No JVD Lungs: Clear to auscultation, Normal air movement, No rhonchi, No wheeze, No rales Cardiovascular: Regular rate, Regular Rhythm, Normal S1, Normal S2, No murmurs Abdomen: Soft, Non Tender, Non-Distended, No Hepato-splenomegaly Extremities: No edema, Capillary Refill Less than 3 Seconds Skin: No rashes, No breakdown Musculoskeletal: No Tenderness to Palpation of Joints or Extremities Neurological: Cranial nerves II-XII grossly intact, Motor Exam 5/5 strength throughout, Sensory exam intact to light touch and pain, significant dysarthria Psych/Mental Status: Normal Affect, Appropriate Results Lab / Micro Data Result Diagrams: 12/06/21 14:05 12/06/21 14:05 Labs: Laboratory Results - last 24 hr 12/06/21 14:00: POC Glucose 358 H 12/06/21 14:05: WBC 10.2, RBC 4.91, Hgb 13.6, Hct 40.7, MCV 82.9, MCH 27.7, MCHC 33.4, RDW Std Deviation 50.6 H, RDW Coeff of Prudence 16.7 H, Plt Count 299, MPV 11.4, Immature Gran % (Auto) 0.200, Neut % (Auto) 73.7 H, Lymph % (Auto) 17.9 L, [place] % (Auto) 7.2, Eos % (Auto) 0.6, Baso % (Auto) 0.4, Absolute Neuts (auto) 7.6, Absolute Lymphs (auto) 1.83, Nucleated RBC % 0 12/06/21 14:05: PT 12.6, INR 1.0, APTT 28.1 12/06/21 14:05: Sodium 135 L, Potassium 3.6, Chloride 101, Carbon Dioxide 29.0, Anion Gap 5, BUN 16, Creatinine 1.20, Estim Creat Clear Calc 84.11, Est GFR (MDRD) Af Amer 81, Est GFR (MDRD) Non-Af 67, BUN/Creatinine Ratio 13.3, Glucose 363 H, Calcium 8.4 L, Troponin I High Sens 795 H* Radiology Impression Brain CT 12/06/21 14:04 IMPRESSION: There are findings of areas of low-density in the left frontal parietal lobe and left parietal lobe suggesting an acute ischemic infarction. Chronic involutional changes of the brain. Critical finding called and case discussed. Electronically Signed: Quentin Lau MD at 14:20 EDT , ADDENDUM: 12/06/21 1430 IMPRESSION: There are findings of areas of low-density in the left frontal parietal lobe and left parietal lobe suggesting an acute ischemic infarction. Chronic involutional changes of the brain. Critical finding called and case discussed. N.B. : The above Results were Read Back by Quentin Lau MD to Beto Roberts MD, and understanding confirmed on 12/06/2021 14:23:33 (ET). Electronically Signed: Quentin Lau MD at 14:20 EDT , Head/Neck CTA 12/06/21 14:04 IMPRESSION: 1. There is mild atherosclerotic plaque formation of the origin of the right internal carotid artery with less than 50% cross sectional diameter stenosis. ALL ABOVE CRITERIA BY NASCET. 2. There is mild atherosclerotic plaque formation of the origin of the left internal carotid artery with less than 50% cross sectional diameter stenosis. ALL ABOVE CRITERIA BY NASCET. 3. There is calcified plaque formation of the right cavernous carotid artery, with a mild stenosis (less than 50%). ALL ABOVE CRITERIA BY NASCET. 4. There is calcified plaque formation of the left cavernous carotid artery, with a mild stenosis (less than 50%). ALL ABOVE CRITERIA BY NASCET. Electronically Signed: Quentin Lau MD at 14:43 EDT , ADDENDUM: 12/06/21 1451 IMPRESSION: 1. There is mild atherosclerotic plaque formation of the origin of the right internal carotid artery with less than 50% cross sectional diameter stenosis. ALL ABOVE CRITERIA BY NASCET. 2. There is mild atherosclerotic plaque formation of the origin of the left internal carotid artery with less than 50% cross sectional diameter stenosis. ALL ABOVE CRITERIA BY NASCET. 3. There is calcified plaque formation of the right cavernous carotid artery, with a mild stenosis (less than 50%). ALL ABOVE CRITERIA BY NASCET. 4. There is calcified plaque formation of the left cavernous carotid artery, with a mild stenosis (less than 50%). ALL ABOVE CRITERIA BY NASCET. N.B. : The above Results were Read Back by Quentin Lau MD to Beto Roberts MD, and understanding confirmed on 12/06/2021 14:44:14 (ET). Electronically Signed: Quentin Lau MD at 14:43 EDT , Assessment & Plan Assessment/Plan (1) Acute CVA (cerebrovascular accident): (2) Non-STEMI (non-ST elevated myocardial infarction): PLAN: Plan 1. Acute left parietal CVA with acute non-STEMI ? There were some EKG changes in the lateral leads and given his cardiac history will be started on a heparin drip with the blessing of neurology ? We will consult cardiology for assistance ? He does have a history of combined diastolic and systolic CHF with an EF of 45% a year ago on echo as well as stage II diastolic dysfunction ? PT/OT ? We will continue NIH's since we will be using heparin drip in the setting of a recent infarct there is concern for hemorrhagic conversion however given EKG changes as well as the elevated troponin it is a necessary risk ? We will repeat echo in the morning 2. HTN/HLD/combined chronic diastolic and systolic CHF ? Despite his recent stroke we will doom his blood pressure medications ? Also will place him on an aspirin 3. DM2 ? We will hold his metformin ? We will place muscling scale insulin as well as long-acting insulin ? Accu-Cheks AC at bedtime ? We will make adjustments as necessary 4. Anxiety/depression ? Stable ? Continue with Paxil and trazodone DVT: Heparin drip Charges/Coding Visit Charges Inpatient E&M: 84413 Init Hosp L3
--- NOTE | 2021-12-06 16:58 | RAD_ITS ---
STUDY: X-RAY CHEST REASON FOR EXAM: Male, 56 years old. CHEST PAIN Neuro deficit, acute, stroke suspected TECHNIQUE: XR Chest 1 View COMPARISON: None FINDINGS: There is no demonstrated pleural abnormality. Normal size heart. Normal mediastinum and ruy. Normal visualized pulmonary arteries. Normal visualized aortic arch and descending thoracic aorta. Normal visualized thoracic spine. Normal visualized ribs, clavicles, and shoulders. There is no demonstrated abnormality of the visualized soft tissue structures of the upper abdomen. RAD/Chest 1 View IMPRESSION: There are no acute findings. Electronically Signed: Quentin Lau MD at 17:31 EDT ,
--- NOTE | 2021-12-06 17:59 | ECHOD_ITS ---
Reason For Study: TIA/CVA Procedure This was a 2D Doppler, Color Flow transthoracic echocardiogram. Exam performed portable in patient room. Left Ventricle Normal LV size. Moderate concentric left ventricular hypertrophy. The estimated ejection fraction is 50 %. There is mild global hypokinesis of the left ventricle. Right Ventricle Normal RV size. Normal systolic function. Atria The left atrium is moderately enlarged. Normal right atrium. Bubble contrast study negative for right to left interatrial shunt. Mitral Valve Bileaflet diffuse mitral valve thickening. Mild (1+) eccentric mitral valve insufficiency. Tricuspid Valve Normal tricuspid valve. Mild tricuspid valve insufficiency. Pulmonary artery systolic pressure is 35 mmHg. Aortic Valve Trisinus/trileaflet aortic valve. Pulmonic Valve Normal pulmonic valve. Great Vessels Normal aortic root. The pulmonary artery is normal size. Normal inferior vena cava. Pericardium/Pleural No pericardial effusion. Medication Performed a rapid injection of agitated mix of 9 cc saline and 1cc air to assess for atrial septal defect. MMode/2D Measurements & Calculations LVIDd: 5.4 cm IVSd: 1.7 cm Ao root diam: 4.8 cm LVIDs: 4.4 cm LVPWd: 1.7 cm LA dimension: 4.9 cm RVDd: 4.1 cm FS: 18.5 % LAV(MOD-bp): 108.3 ml LA A4 area: 28.8 cm2 RA A4 area: 20.3 cm2 LAV(MOD-bp) Indexed: 48.5 ml/m2 LAV(MOD-sp2): 115.4 ml LAV(MOD-sp4): 102.8 ml Time Measurements MV dec time: 0.15 sec Doppler Measurements & Calculations MV E max sundar: 84.9 cm/sec Lat Peak E' Sundar: 8.4 cm/sec Med Peak E' Sundar: 7.8 cm/sec MV A max sundar: 57.2 cm/sec E/E' lat: 10.1 E/E' med: 10.9 MV E/A: 1.5 MV V2 max: 92.6 cm/sec MV P1/2t max sundar: 93.4 cm/sec Ao V2 max: 95.6 cm/sec MV max P.4 mmHg MV P1/2t: 46.6 msec Ao max P.7 mmHg MV V2 mean: 44.8 cm/sec MV dec slope: 586.7 cm/sec2 Ao V2 mean: 70.8 cm/sec MV mean P.99 mmHg Ao mean P.2 mmHg MV V2 VTI: 18.9 cm MVA(P1/2t): 4.7 cm2 Ao V2 VTI: 21.1 cm LV V1 max: 73.9 cm/sec MR max sundar: 503.5 cm/sec PA V2 max: 59.5 cm/sec LV V1 max P.2 mmHg MR max P.4 mmHg LV V1 mean P.3 mmHg LV V1 mean: 55.4 cm/sec LV V1 VTI: 14.9 cm TR max sundar: 278.1 cm/sec TR max P.9 mmHg ECHO/Echo Complete Interpretation Summary Normal LV size. Moderate concentric left ventricular hypertrophy. The left atrium is moderately enlarged. Pulmonary artery systolic pressure is 35 mmHg. The estimated ejection fraction is 50 %. Bileaflet diffuse mitral valve thickening. Mild (1+) eccentric mitral valve insufficiency. Ordering Physician: Kavon Mandel Performed By: Johnnie Goel RCS
--- NOTE | 2021-12-06 18:04 | EKG12_ITS ---
Test Reason : AM EKG Blood Pressure : / mmHG Vent. Rate : 078 BPM Atrial Rate : 078 BPM P-R Int : 186 ms QRS Dur : 096 ms QT Int : 418 ms P-R-T Axes : 038 021 262 degrees QTc Int : 476 ms Normal sinus rhythm Possible Left atrial enlargement Left ventricular hypertrophy with repolarization abnormality ( Sokolow-Narayan , Curtis product , Romhi lt-Noe ) Abnormal ECG When compared with ECG of 06-DEC-2021 14:35, MANUAL COMPARISON REQUIRED, DATA IS UNCONFIRMED Confirmed by LORAINE URBAN, MADHU ([id number]), makeup editor DREA BELLE ([id number]) on 12/08/2021 12:58:17 PM Referred By: Confirmed By:MADHU BARON MD
[2021-12-06] MEDS: HEPARIN/D5w 25,000 UNITS 25,000 UNITS/250 ML IV.SOLN. 14 UNITS CONT INF (18:42)
[2021-12-06 19:04] LABS: Troponin-I HS 556 pg/mL (3.0-78.0)
--- NOTE | 2021-12-06 19:35 | PCM.CONS.C ---
Assessment & Plan Assessment/Plan (1) Non-STEMI (non-ST elevated myocardial infarction): PLAN: The patient presents with abnormal troponin I levels appearing compatible with an acute non-ST segment elevation [place]. At the moment it is unclear whether this is a type I event versus a type II event potentially related to the patient's hypertension and acute CVA event superimposed upon his history of left ventricular systolic dysfunction. The patient appears without acute coronary syndrome symptoms at this time. His ECG is as noted. At the present time the patient is being monitored. His cardiac enzymes and ECG will be followed. A request is made for her to follow-up transthoracic echocardiogram to evaluate his left ventricular wall motion and systolic function. In the interim he is being treated medically with a combination of aspirin, anticoagulants (neurologic dose), beta-blockers, afterload reducing agents, lipid-lowering agents. (2) Left ventricular systolic dysfunction (LVSD): PLAN: The patient has a history of left ventricular systolic dysfunction as previously noted. Based upon his history he has been following with the [facility] cardiology. It does not appear, based upon his history, that he has undergone additional noninvasive or invasive studies via the [facility]. He is continuing medical therapy at this time. His left ventricle can be reassessed with a transthoracic echocardiogram. (3) CHF (congestive heart failure): PLAN: The patient has a history of acute on chronic CHF. At the moment he appears without any acute symptoms. He does have symptoms of dyspnea as well as potentially orthopnea which compatible with his chronic CHF. He will need to be monitored for any acute changes. He will continue noninvasive valuation as noted. He will continue medical therapy with adjustment as deemed appropriate. (4) Acute CVA (cerebrovascular accident): PLAN: It appears the patient has experienced an acute CVA based upon his clinical presentation and objective findings. He remains dysarthric at this time. The [facility] emergency department staff discussed with the [facility] stroke center further evaluation and care. It appears that the patient has been placed on IV heparin (neurologic dose range). (5) HLD (hyperlipidemia): PLAN: The patient has a history of hyperlipidemia. He should continue risk factor modification medical therapy. (6) HTN (hypertension): PLAN: The patient's blood pressure was markedly elevated upon arrival. The patient will continue to have his blood pressure monitored. He will continue medical therapy with adjustment to bring his blood pressure under better control per neurology recommendations. (7) Diabetes mellitus: PLAN: The patient has history of diabetes mellitus. He will continue evaluation and care per internal medicine. Addt'l Comments Comment: [facility] was contacted by the [facility] emergency department physician caring for the patient while the patient was in the [facility] emergency department. The [facility] emergency department physician inquired regarding the patient's clinical course and additional cardiovascular recommendations with respect to antiplatelet therapy and anticoagulant therapy for the possibility of an acute coronary syndrome/non-ST segment elevation [place]. Status post a conversation with the [facility] emergency department physician caring for the patient regarding the patient's presentation and objective findings, it was recommended to the [facility] emergency department physician that neurology be contacted based upon the patient's acute CVA for recommendations with respect to antiplatelet and anticoagulant therapy in the setting of an acute CVA with the associated cardiovascular concerns. It was also recommended to the emergency department physician that the patient be transferred to a tertiary care center where the patient could receive onsite neurology evaluation as well as cardiovascular evaluation taking into consideration that the patient's abnormal cardiac enzymes and ECG, if not related to an acute [employer] event and related to an acute coronary syndrome event, that could require additional cardiovascular evaluation including the possible need for diagnostic cardiac catheterization/revascularization therapy. The recommendation for transfer to a tertiary care center was to take into consideration that if the patient's cardiovascular clinical status changed and the patient required further invasive cardiovascular evaluation and care, which could include antiplatelet therapy, anticoagulant therapy, 2B3A inhibitor therapy, etc., the patient would be at increased risk for conversion of his acute nonhemorrhagic CVA to a hemorrhagic CVA and thus would benefit from onsite neurology and neurosurgery care and support which is not available at [facility]. The [facility] emergency department physician agreed to contact neurology for further recommendations. [facility] the outcome of the [facility] emergency department physicians conversation with neurology and the subsequent decision by the [facility] emergency department physician to recommend admission to [facility] for further evaluation and care. The patient was subsequently evaluated by the [facility] hospitalist staff and admitted to the PCU. [facility] was subsequently placed on consultation to assist with the patient's evaluation and care. The patient was evaluated as noted above. The patient's case and the aforementioned telephone conversation with the [facility] emergency department physician was discussed in person with the [facility] emergency department physician caring for the patient as well as with the [facility] hospitalist staff physician caring for the patient. This discussion was held in the best interest of the patient with respect to concerns of the patient with the need for further evaluation and care and what services were available versus not available at [facility] versus what services would be available at a tertiary care center as noted above. This discussion was also held to clarify the [facility] discussion previously held with the [facility] emergency department physician with respect to the previous recommendations to not only contact neurology for assistance with additional medical therapy with respect to antiplatelet therapy and anticoagulant therapy in the setting of an acute CVA with the associated cardiovascular concerns, but also with respect to the previous recommendation for the patient to be transferred to a tertiary care center, based upon the aforementioned concerns from a cardiovascular standpoint, which was not noted/reported in the initial [facility] emergency department physician note. Of note, the [facility] hospitalist staff caring for the patient stated they were informed by the [facility] emergency department physician of the aforementioned conversation with neurology regarding medical management, but had not informed by the [facility] emergency department physician that a recommendation had been made by [facility] that the patient be transferred to a tertiary care center for further evaluation and care. Also, another clarification was made that the [facility] emergency department physician statement that both cardiology and stroke neurology at this time there is no indication for heparin drip, especially that the patient has no chest pain back pain or shortness of breath was, from a cardiovascular standpoint, inaccurate. From a cardiovascular standpoint if there was no acute [employer] event and the only concern was an acute coronary syndrome event/an acute non-ST segment elevation [place], that based upon the patient's abnormal cardiac enzymes and ECG, consideration could be given to the initiation of additional medical therapy with IV heparin unless otherwise contraindicated. The initial [facility] emergency department physician note stated that a conversation had taken place with neurology and neurology stated the patient could remain at [facility] as [facility] is a stroke center and has cardiac intervention if needed. Following this conversation the [facility] emergency department physician with respect to clarifying the original cardiovascular recommendations, the [facility] emergency department physician caring for the patient stated that an addendum would be made to the original [facility] emergency department note acknowledging the [facility] previous recommendation that the patient be transferred to a tertiary care center for the aforementioned concerns. The [facility] emergency department physician also stated that that information would be communicated to the [facility] hospital staff physician as well. The [facility] emergency department physician did subsequently place such an addendum, however, the addendum stated that I discussed the patient with Dr. Kay, he told me that he recommended admission, but when I called [facility], the stroke neurologist told me the patient could stay here. I will follow-up with the hospitalist. Again, this statement is an accurate as the recommendation was for transfer to a tertiary care center and not admission to the [facility]. Following the conversation with the [facility] emergency department physician, the patient's case was discussed and reviewed with the [facility] staff physician caring for the patient. The aforementioned recommendations, including a recommendation for transfer to a tertiary care center, which could include the [facility] or if the [facility] is unable to accept the patient then an alternative tertiary care center, was reiterated. This information was acknowledged by the [facility] staff physician. In the interim, [facility] will continue to assist in the patient's ongoing evaluation and care as best as possible while the patient remains at [facility]. This note was generated using a voice recognition system and there may be incorrect words, spelling or punctuation that were not noted when reviewing the office note prior to saving. HPI Consult Data Date of Consult: 12/06/21 HPI Narrative HPI Narrative: OLIVER CRAMER, is a 56 year old -[place] male who presents for cardiovascular consultation based upon concerns of abnormal troponin I levels and an abnormal ECG in the setting of an acute CVA and a hypertensive urgency event superimposed upon a history of a history of diminished LV systolic function and CHF , hyper lipidemia, hypertension, and diabetes mellitus. From a cardiovascular standpoint it appears the patient was evaluated in cardiovascular consultation on 07-25-[address] Bustos for concerns of acute on chronic heart failure. At that time, he underwent evaluation with a transthoracic echocardiogram, which per the report stated that under the interpretation that the patient had normal LV size, the estimated ejection fraction was 45%, there was moderate concentric LVH, there was mild to moderately dilated aortic root, there was stage II diastolic dysfunction, the pulmonary artery systolic pressure was reported at 54 mmHg, moderate pulmonary hypertension, the left atrium is mildly enlarged, and the global longitudinal strain is moderately abnormal with reported numerical number of -13%. Per the body of the report the patient was noted to have mild MR and mild to moderate TR. It appears based upon the medical records available at that time that the patient was treated medically including IV diuretics and had subsequent clinical improvement. He was noted, based upon concerns of chest tightness, to have a recommendation for evaluation with coronary angiography once he had undergone evaluation for concerns of anemia. It appears he was subsequently released home with a recommendation for continued outpatient follow-up. The patient states that he has been following with [facility] cardiology. The patient, with his spouse present assisting with the history based upon the patient's ongoing difficulty with dysarthria, notes that there was to be some form of an exercise tolerance test performed however it was not performed neither was a diagnostic cardiac catheterization. The patient reports being scheduled for an upcoming appointment with his [facility] pharmacist on 12-10-2021. It appears the patient awoke this morning with difficulty speaking. According to his spouse he did not want to present to the emergency department. However as the day progressed he continued with difficulty and eventually allowed himself to be brought to the emergency department for further evaluation. He denied any ongoing chest discomfort. He denied any acute shortness of breath. His spouse states that he has been having difficulty with breathing at night and getting comfortable in the bed. There is been no report of ongoing peripheral pitting edema of the lower extremities. There was no report of palpitations, near-syncope, or syncope. The patient presented to the emergency department for further evaluation. He was noted to have findings compatible with dysarthria. He was noted to have a pulse of 99 and a blood pressure of 203/124 mmHg. He had additional laboratory studies performed which demonstrated a high-sensitivity troponin I level of 795. An ECG was performed that demonstrated the appearance of underlying normal sinus rhythm with possible left atrial enlargement with findings compatible with left ventricular hypertrophy and ST and T wave changes with a differential diagnosis including LVH repolarization as well as myocardial ischemia-lateral. A chest x-ray was performed which reported no acute changes by radiology. A brain CT scan was performed which reported areas of low density in the left frontal parietal lobe and the left parietal lobe suggesting an acute ischemic infarction as well as chronic involutional changes of the brain. The patient was subsequently admitted by the [facility] hospitalist staff for further inpatient evaluation and care. The patient was placed on the PCU. At the time of cardiovascular consultation the patient appeared to be resting comfortably having an evening meal. He was dysarthric and did have difficulty answering questions and expressing himself. His spouse was present to assist with the history. He denied any ongoing chest discomfort or difficulty breathing. There was no report of concerns of palpitations. There was no sensation of near syncope and there has been no syncope. [facility] Medical History Anxiety Congestive heart failure Depression Diabetes mellitus, type 2 Dyslipidemia Hypertension Smoker Home Medications fluticasone propionate 50 mcg/actuation nasal spray,suspension 2 spray intranasal DAILY allergies 07/24/20 [History Last Taken Unknown] gabapentin 300 mg capsule 300 mg PO TID neuropathy 07/24/20 [History Last Taken Unknown] metformin 500 mg tablet 1,000 mg PO BIDCM diabetes 07/24/20 [History Last Taken Unknown] paroxetine HCl 10 mg tablet 20 mg PO QHS depression 07/24/20 [History Last Taken Unknown] trazodone 50 mg tablet 50 mg PO QHS sleep 07/24/20 [History Last Taken Unknown] ascorbic acid (vitamin C) 500 mg tablet 500 mg PO BIDCM #60 tabs 07/26/20 [Rx Last Taken Unknown] carvedilol 6.25 mg tablet 6.25 mg PO BID #60 tabs 07/26/20 [Rx Last Taken Unknown] furosemide 40 mg tablet (Lasix) 40 mg PO BID #60 tabs 07/26/20 [Rx Last Taken Unknown] nitroglycerin 0.4 mg sublingual tablet 0.4 mg sublingual Q5M PRN Cardiac/Chest Pain #30 tabs 07/26/20 [Rx Last Taken Unknown] spironolactone 25 mg tablet 25 mg PO DAILY #30 tabs 07/26/20 [Rx Last Taken Unknown] lisinopril 10 mg tablet 20 mg PO DAILY blood pressure 12/06/21 [History Last Taken Unknown] Allergy/AdvReac Type Severity Reaction Status Date / Time No Known Allergies Allergy Verified 12/06/21 14:04 Family History (Updated 12/06/21 @ 17:[address] Kavon Mandel MD) Other Diabetes Heart disease Hypertension Surgical History unable to obtain Social History Smoking Status: Current every day smoker tobacco type: cigarettes ROS Constitutional Constitutional: Reports as per HPI Eyes Eyes: Reports as per HPI ENT HEENT: Reports as per HPI Cardiovascular Cardiovascular: Reports dyspnea Respiratory/Chest Respiratory/Chest: Reports dyspnea Gastrointestinal Gastrointestinal: Reports as per HPI Genitourinary Genitourinary: Reports as per HPI Musculoskeletal Musculoskeletal: Reports as per HPI Integumentary Integumentary: Reports as per HPI Neurologic Neurologic: Reports other Details: Dysarthria Psychiatric Psychiatric: Reports as per HPI Physical Exam Const alert, oriented x3 and no apparent distress Orientation / Consciousness: awake HEENT normocephalic, head/scalp atraumatic and hearing grossly normal bilaterally Eyes PERRL, EOMs intact bilaterally, conjunctivae normal and no scleral icterus Neck full ROM and supple Carotids: normal carotid upstroke Resp normal respiratory effort and clear to auscultation bilaterally Cardio regular rate, regular rhythm, S1 normal heart sound and S2 normal heart sound Heart Sounds: gallop S4 gallop GI normal to inspection, nondistended, normoactive bowel sounds Extremity no pedal edema Skin no rashes or lesions noted Psych cooperative Risk Stratification Risk Stratification Applicable: Yes Age >/= 65: No >/= 3 CAD Risk Factors (HTN, HLD, DM, family hx of CAD, or current smoker): Yes Aspirin Use in the Past 7 Days: No Severe Angina (>/= episodes in 24 hours): No EKG ST Changes >/= 0.5mm: No Positive Cardiac Marker: Yes RADHA Risk Stratification Score: 2 RADHA % Risk: 8% Risk Procedure Criteria Type of Procedure Procedure Type: Elective Elective Risks - COVID COVID Risk Discussion: The surgeon/proceduralist and patient have discussed in detail the risk of exposure to and/or potential harm posed by the COVID-19 virus with having a surgery/procedure at this time versus the risk of delaying the surgery/procedure. It is not possible to know either the risk of delaying the surgery or procedure or chance of getting an infection with perfect accuracy, but a joint decision was made between the patient and the surgeon/proceduralist to proceed at this time with the scheduled surgery/procedure as indicated on the consent form. Objective Data Vital Signs: Vital Signs Temp Pulse Resp BP Pulse Ox O2 Del Method 98.1 F 70 18 180/109 H 98 Room Air 12/06/21 18:24 12/06/21 18:28 12/06/21 18:24 12/06/21 18:24 12/06/21 18:24 12/06/21 18:26 Oxygen Delivery Method Room Air Weight: 199 lb 6.4 oz Body Mass Index (BMI) 24.9 Lab / Micro Data Result Diagrams: 12/06/21 14:05 12/06/21 14:05 Labs: Laboratory Results - last 24 hr 12/06/21 14:00: POC Glucose 358 H 12/06/21 14:05: WBC 10.2, RBC 4.91, Hgb 13.6, Hct 40.7, MCV 82.9, MCH 27.7, MCHC 33.4, RDW Std Deviation 50.6 H, RDW Coeff of Prudence 16.7 H, Plt Count 299, MPV 11.4, Immature Gran % (Auto) 0.200, Neut % (Auto) 73.7 H, Lymph % (Auto) 17.9 L, [place] % (Auto) 7.2, Eos % (Auto) 0.6, Baso % (Auto) 0.4, Absolute Neuts (auto) 7.6, Absolute Lymphs (auto) 1.83, Nucleated RBC % 0 12/06/21 14:05: PT 12.6, INR 1.0, APTT 28.1 12/06/21 14:05: Sodium 135 L, Potassium 3.6, Chloride 101, Carbon Dioxide 29.0, Anion Gap 5, BUN 16, Creatinine 1.20, Estim Creat Clear Calc 84.11, Est GFR (MDRD) Af Amer 81, Est GFR (MDRD) Non-Af 67, BUN/Creatinine Ratio 13.3, Glucose 363 H, Calcium 8.4 L, Troponin I High Sens 795 H* 12/06/21 18:28: Troponin I High Sens 556 H* Cardiology Labs/Tests 12/06/21 14:05: WBC 10.2, RBC 4.91, Hgb 13.6, Hct 40.7, MCV 82.9, MCH 27.7, MCHC 33.4, Plt Count 299, MPV 11.4, Immature Gran % (Auto) 0.200, Neut % (Auto) 73.7 H, Lymph % (Auto) 17.9 L, [place] % (Auto) 7.2, Eos % (Auto) 0.6, Baso % (Auto) 0.4, Absolute Neuts (auto) 7.6, Nucleated RBC % 0 12/06/21 14:05: PT 12.6, INR 1.0, APTT 28.1 12/06/21 14:05: Sodium 135 L, Potassium 3.6, Chloride 101, Carbon Dioxide 29.0, Anion Gap 5, BUN 16, Creatinine 1.20, Est GFR (MDRD) Af Amer 81, Est GFR (MDRD) Non-Af 67, BUN/Creatinine Ratio 13.3, Glucose 363 H, Calcium 8.4 L Rhythm: Sinus rhythm EKG: As noted above ECHO: 07-24-2020 Interpretation Summary Normal LV size. The estimated ejection fraction is 45 %. Moderate concentric left ventricular hypertrophy. Mild to moderately dilated aortic root. Stage 2 diastolic dysfunction. Pulmonary artery systolic pressure is 54 mmHg. Moderate pulmonary hypertension. The left atrium is mildly enlarged. The global longitudinal strain is moderately abnormal. The global longitudinal strain = -13% (abnormal). Radiography Diagnostic Testing: Radiology Impression Brain CT 12/06/21 14:04 IMPRESSION: There are findings of areas of low-density in the left frontal parietal lobe and left parietal lobe suggesting an acute ischemic infarction. Chronic involutional changes of the brain. Critical finding called and case discussed. Electronically Signed: Quentin Lau MD at 14:20 EDT Reading Location ID and State: [facility] / [place] , Service support , ADDENDUM: 12/06/21 1430 IMPRESSION: There are findings of areas of low-density in the left frontal parietal lobe and left parietal lobe suggesting an acute ischemic infarction. Chronic involutional changes of the brain. Critical finding called and case discussed. N.B. : The above Results were Read Back by Quentin Lau MD to Beto Roberts MD, and understanding confirmed on 12/06/2021 14:23:33 (ET). Electronically Signed: Quentin Lau MD at 14:20 EDT , Head/Neck CTA 12/06/21 14:04 IMPRESSION: 1. There is mild atherosclerotic plaque formation of the origin of the right internal carotid artery with less than 50% cross sectional diameter stenosis. ALL ABOVE CRITERIA BY NASCET. 2. There is mild atherosclerotic plaque formation of the origin of the left internal carotid artery with less than 50% cross sectional diameter stenosis. ALL ABOVE CRITERIA BY NASCET. 3. There is calcified plaque formation of the right cavernous carotid artery, with a mild stenosis (less than 50%). ALL ABOVE CRITERIA BY NASCET. 4. There is calcified plaque formation of the left cavernous carotid artery, with a mild stenosis (less than 50%). ALL ABOVE CRITERIA BY NASCET. Electronically Signed: Quentin Lau MD at 14:43 EDT , ADDENDUM: 12/06/21 1451 IMPRESSION: 1. There is mild atherosclerotic plaque formation of the origin of the right internal carotid artery with less than 50% cross sectional diameter stenosis. ALL ABOVE CRITERIA BY NASCET. 2. There is mild atherosclerotic plaque formation of the origin of the left internal carotid artery with less than 50% cross sectional diameter stenosis. ALL ABOVE CRITERIA BY NASCET. 3. There is calcified plaque formation of the right cavernous carotid artery, with a mild stenosis (less than 50%). ALL ABOVE CRITERIA BY NASCET. 4. There is calcified plaque formation of the left cavernous carotid artery, with a mild stenosis (less than 50%). ALL ABOVE CRITERIA BY NASCET. N.B. : The above Results were Read Back by Quentin Lau MD to Beto Roberts MD, and understanding confirmed on 12/06/2021 14:44:14 (ET). Electronically Signed: Quentin Lau MD at 14:43 EDT , Chest X-Ray 12/06/21 16:58 IMPRESSION: There are no acute findings. Electronically Signed: Quentin Lau MD at 17:31 EDT ,
[2021-12-06 20:33] LABS: Troponin-I HS 503 pg/mL (3.0-78.0)
[2021-12-06] MEDS: traZODone 50 MG Tablet PO (22:31)
[2021-12-06] MEDS: Carvedilol 6.25 MG Tablet PO (22:31)
[2021-12-06] MEDS: Insulin Glargine-YFGN 100 UNIT/ML Pen SC (22:31)
[2021-12-06] MEDS: Atorvastatin Calcium 80 MG Tablet PO (22:31)
[2021-12-06] MEDS: Paroxetine 20 MG Tablet PO (22:31)
[2021-12-06] MEDS: Insulin Lispro 100 UNIT/ML INSULN.PEN SC (22:33)
[2021-12-06 23:50] LABS: Bedside Glucose 328 mg/dL (74-106)
[2021-12-07] VITALS (12 sets, daily range): BP systolic 140–184; BP diastolic 81–118; PULSE 73–87; RESP 16–18; TEMP 36.7–37.1; O2SAT 94–97; BMI 24.9
[2021-12-07 00:40] LABS: Partial Thromboplast Time 45.1 Seconds (24.1-36.2)
--- NOTE | 2021-12-07 05:55 | EKG12_ITS ---
Test Reason : ADMISSION Blood Pressure : / mmHG Vent. Rate : 063 BPM Atrial Rate : 063 BPM P-R Int : 184 ms QRS Dur : 098 ms QT Int : 442 ms P-R-T Axes : 030 027 268 degrees QTc Int : 452 ms Normal sinus rhythm Possible Left atrial enlargement Left ventricular hypertrophy with repolarization abnormality ( Sokolow-Narayan , Enoch product , Romhi lt-Noe ) vs myocardial ischemia Abnormal ECG Confirmed by DOMO URBAN, HOLLY ([id number]), scientific publications editor DREA BELLE ([id number]) on 12/11/2021 7:45:39 AM Referred By: LILIANA Confirmed By:HOLLY OLIVEROS MD
[2021-12-07] MEDS: Insulin Lispro 100 UNIT/ML INSULN.PEN SC ×4 (06:24→20:32)
[2021-12-07 06:45] LABS: Bedside Glucose 168 mg/dL (74-106)
[2021-12-07 07:05] LABS: Absolute Lymphocyte Count 1.77 X10^3/uL (0.83-4.51); Absolute Neutrophil Count 5.7 X10^3/uL (2.0-7.7); Basophil# 0.05 X10^3/uL; Basophil% 0.6 % (0-1); Eosinophils% 1.2 % (0-5); Hematocrit 38.9 % (40-54); Hemoglobin 12.5 g/dL (13.0-16.5); Lymphocyte # 1.77 X10^3/ul (0.83-4.51); Lymphocyte % 21.2 % (19-41); Mean Corp Hgb Conc 32.1 g/dL (32-36); Mean Corpuscular Hgb 26.9 pg (27.0-32.0); Mean Corpuscular Volume 83.8 fL (80-94); Monocyte# 0.66 X10^3/uL; Monocyte% 7.9 % (0-10); NRBC Flagged by Analyzer 0 % (0-5); Neutrophil # 5.74 X10^3/uL (2.7-7.7); Neutrophil % 68.9 % (47-70); Platelet Count 251 K/mm3 (150-450); RBC Distribution Width CV 16.8 % (11.6-14.6); RBC Distribution Width SD 51.4 fl (35.1-43.9); Red Blood Count 4.64 M/mm3 (4.6-6.2); White Blood Count 8.3 K/mm3 (4.4-11.0)
[2021-12-07 07:28] LABS: Anion Gap 7 (5-15); BUN 13 mg/dL (7-18); BUN/Creat Ratio 13.1 RATIO (10-20); Chloride 103 mmol/L (98-107); Cholesterol 233 mg/dL (200); Creatinine, Serum 0.99 mg/dL (0.70-1.30); EST Glomerular Filtration Rate 83 mL/min (>60); Est Glom Filt Rate - Afr Amer 101 mL/min (>60); Estimated Creatinine Clearance 101.95 ml/min; Glucose 175 mg/dL (74-106); High Density Lipoprotein 49 mg/dL; Potassium 3.4 mmol/L (3.5-5.1); Sodium Level 138 mmol/L (136-145); Triglycerides 149 mg/dL; Very Low Density Lipoprotein 30 mg/dL (5-40)
--- NOTE | 2021-12-07 07:50 | PCM.PN.HOSP ---
Objective Data Objective Data Vital Signs: Vital Signs Temp Pulse Resp BP Pulse Ox O2 Del Method 98.7 F 78 18 158/105 H 94 Room Air 12/07/21 06:11 12/07/21 06:45 12/07/21 06:11 12/07/21 06:11 12/07/21 07:06 12/07/21 07:06 Oxygen Delivery Method Room Air Weight: 199 lb 6.4 oz Body Mass Index (BMI) 24.9 Intake & Output: Intake and Output for Last 24 Hours 12/05/21 12/06/21 12/07/21 23:59 23:59 23:59 Intake Total 49.7 / 349.7 536.87 / 536.87 Balance 49.7 / 349.7 536.87 / 536.87 Lab / Micro Data Result Diagrams: 12/07/21 06:55 12/07/21 06:55 Labs: Laboratory Results - last 24 hr 12/06/21 14:00: POC Glucose 358 H 12/06/21 14:05: WBC 10.2, RBC 4.91, Hgb 13.6, Hct 40.7, MCV 82.9, MCH 27.7, MCHC 33.4, RDW Std Deviation 50.6 H, RDW Coeff of Prudence 16.7 H, Plt Count 299, MPV 11.4, Immature Gran % (Auto) 0.200, Neut % (Auto) 73.7 H, Lymph % (Auto) 17.9 L, [place] % (Auto) 7.2, Eos % (Auto) 0.6, Baso % (Auto) 0.4, Absolute Neuts (auto) 7.6, Absolute Lymphs (auto) 1.83, Nucleated RBC % 0 12/06/21 14:05: PT 12.6, INR 1.0, APTT 28.1 12/06/21 14:05: Sodium 135 L, Potassium 3.6, Chloride 101, Carbon Dioxide 29.0, Anion Gap 5, BUN 16, Creatinine 1.20, Estim Creat Clear Calc 84.11, Est GFR (MDRD) Af Amer 81, Est GFR (MDRD) Non-Af 67, BUN/Creatinine Ratio 13.3, Glucose 363 H, Calcium 8.4 L, Troponin I High Sens 795 H* 12/06/21 18:28: Troponin I High Sens 556 H* 12/06/21 19:50: Troponin I High Sens 503 H* 12/06/21 22:26: POC Glucose 328 H 12/07/21 00:11: APTT 45.1 H 12/07/21 06:23: POC Glucose 168 H 12/07/21 06:55: WBC 8.3, RBC 4.64, Hgb 12.5 L, Hct 38.9 L, MCV 83.8, MCH 26.9 L, MCHC 32.1, RDW Std Deviation 51.4 H, RDW Coeff of Prudence 16.8 H, Plt Count 251, MPV 11.0, Immature Gran % (Auto) 0.200, Neut % (Auto) 68.9, Lymph % (Auto) 21.2, [place] % (Auto) 7.9, Eos % (Auto) 1.2, Baso % (Auto) 0.6, Absolute Neuts (auto) 5.7, Absolute Lymphs (auto) 1.77, Nucleated RBC % 0 12/07/21 06:55: Sodium 138, Potassium 3.4 L, Chloride 103, Carbon Dioxide 28.0, Anion Gap 7, BUN 13, Creatinine 0.99, Estim Creat Clear Calc 101.95, Est GFR (MDRD) Af Amer 101, Est GFR (MDRD) Non-Af 83, BUN/Creatinine Ratio 13.1, Glucose 175 H, Calcium 8.0 L, Triglycerides 149, Cholesterol 233 H, LDL Cholesterol 154 H, VLDL Cholesterol 30, HDL Cholesterol 49 Radiography Diagnostic Testing: Radiology Impression Brain CT 12/06/21 14:04 IMPRESSION: There are findings of areas of low-density in the left frontal parietal lobe and left parietal lobe suggesting an acute ischemic infarction. Chronic involutional changes of the brain. Critical finding called and case discussed. Electronically Signed: Quentin Lau MD at 14:20 EDT , ADDENDUM: 12/06/21 1430 IMPRESSION: There are findings of areas of low-density in the left frontal parietal lobe and left parietal lobe suggesting an acute ischemic infarction. Chronic involutional changes of the brain. Critical finding called and case discussed. N.B. : The above Results were Read Back by Quentin Lau MD to Beto Roberts MD, and understanding confirmed on 12/06/2021 14:23:33 (ET). Electronically Signed: Quentin Lau MD at 14:20 EDT , Head/Neck CTA 12/06/21 14:04 IMPRESSION: 1. There is mild atherosclerotic plaque formation of the origin of the right internal carotid artery with less than 50% cross sectional diameter stenosis. ALL ABOVE CRITERIA BY NASCET. 2. There is mild atherosclerotic plaque formation of the origin of the left internal carotid artery with less than 50% cross sectional diameter stenosis. ALL ABOVE CRITERIA BY NASCET. 3. There is calcified plaque formation of the right cavernous carotid artery, with a mild stenosis (less than 50%). ALL ABOVE CRITERIA BY NASCET. 4. There is calcified plaque formation of the left cavernous carotid artery, with a mild stenosis (less than 50%). ALL ABOVE CRITERIA BY NASCET. Electronically Signed: Quentin Lau MD at 14:43 EDT , ADDENDUM: 12/06/21 1451 IMPRESSION: 1. There is mild atherosclerotic plaque formation of the origin of the right internal carotid artery with less than 50% cross sectional diameter stenosis. ALL ABOVE CRITERIA BY NASCET. 2. There is mild atherosclerotic plaque formation of the origin of the left internal carotid artery with less than 50% cross sectional diameter stenosis. ALL ABOVE CRITERIA BY NASCET. 3. There is calcified plaque formation of the right cavernous carotid artery, with a mild stenosis (less than 50%). ALL ABOVE CRITERIA BY NASCET. 4. There is calcified plaque formation of the left cavernous carotid artery, with a mild stenosis (less than 50%). ALL ABOVE CRITERIA BY NASCET. N.B. : The above Results were Read Back by Quentin Lau MD to Beto Roberts MD, and understanding confirmed on 12/06/2021 14:44:14 (ET). Electronically Signed: Quentin Lau MD at 14:43 EDT , Chest X-Ray 12/06/21 16:58 IMPRESSION: There are no acute findings. Electronically Signed: Quentin Lau MD at 17:31 EDT ,
[2021-12-07 08:03] LABS: Partial Thromboplast Time 49.4 Seconds (24.1-36.2)
[2021-12-07] MEDS: Aspirin 81 MG TAB.CHEW PO (09:00)
--- NOTE | 2021-12-07 09:00 | MRI_ITS ---
ACR Level 3 findings have been noted. An addendum which confirms receipt of the report will follow. STUDY: MRI BRAIN WITHOUT CONTRAST REASON FOR EXAM: Male, 56 years old. CVA TECHNIQUE: Standardized multiplanar fat and water weighted pulse sequences were obtained. COMPARISON: CT FINDINGS: Normal size of the ventricles and extra-axial spaces for the patient''s age. There are multiple white matter hyperintensities, distributed throughout the deep white matter tracts of the cerebral hemispheres, consistent with moderate chronic white matter ischemic changes. There is left posterior frontal restricted diffusion with recent, acute or subacute, infarct, series 4 images through . Normal T2* images of the brain without demonstrated susceptibility artifact. There is no demonstrated hemosiderin stain. Normal bilateral basal ganglia. Normal thalami. There is no extra-axial fluid accumulation. Normal flow voids within the major intracranial circulation suggesting patency by spin echo criteria. Normal sella turcica, pituitary gland, infundibular stalk, optic chiasm and hypothalamus. Normal tectal plate and pineal gland. Normal midbrain, wally and medulla. Normal cerebellum. Normal basal cisterns. Normal bilateral temporal bones. Normal bilateral internal auditory canals. No demonstrated orbital abnormality, within the constraints of a routine brain study. There is mucosal thickening and polyp of left maxillary sinus. Normal calvarium and skull base. Normal visualized soft tissue structures. Normal visualized upper cervical spine. MRI/Brain without Contrast IMPRESSION: Involutional changes of the brain, as described above. Recent left frontal infarct. No hemorrhage. Electronically Signed: Moe Crawley MD at 10:50 EDT ,
[2021-12-07] MEDS: FLU VACC QS2022-23(6MOS UP)/PF 60 MCG/0.5 ML SYRINGE IM (09:01)
--- NOTE | 2021-12-07 09:08 | CT_ITS ---
STUDY: CT BRAIN WITHOUT CONTRAST REASON FOR EXAM: Male, 56 years old. R/O hemorrhagic stroke. Headache on Heparin drip RADIATION DOSAGE (If Supplied By Facility): CTDIvol = ( 44.99 ) mGy, DLP = ( 779.24 ) mGycm TECHNIQUE: Transaxial CT imaging of the brain was performed without administration of intravenous contrast material. Individualized dose optimization techniques were used for this CT. COMPARISON: December 06, 2021 FINDINGS: Normal soft tissue structures. Normal calvarium. Normal size ventricles and extra-axial spaces for the patient''s age. There are areas of decreased attenuation within the white matter tracts of the supratentorial brain, consistent with microvascular disease changes. Stable left frontal diminished density suggesting infarct. Normal basal ganglia and thalami. Normal brainstem. Normal cerebellum. There is no intracranial hemorrhage. There are no findings of an acute ischemic infarction. Mucosal thickening of the left maxillary sinus. There is dehiscent right jugular bulb. CT/Brain/Head without Contrast IMPRESSION: Chronic involutional changes of the brain. Electronically Signed: Moe Crawley MD at 9:48 EDT ,
--- NOTE | 2021-12-07 09:13 | PN.HOSP_ITS ---
Subjective Subjective Follow-up for acute left frontal ischemic stroke. Patient on IV heparin drip Objective Data Objective Data Vital Signs: Vital Signs Temp Pulse Resp BP Pulse Ox O2 Del Method 98.2 F 83 16 181/113 H 98 Room Air 12/08/21 08:09 12/08/21 08:09 12/08/21 08:09 12/08/21 08:09 12/08/21 08:09 12/08/21 08:09 Oxygen Delivery Method Room Air Weight: 199 lb 6.4 oz Body Mass Index (BMI) 24.9 Intake & Output: Intake and Output for Last 24 Hours 12/06/21 12/07/21 12/08/21 23:59 23:59 23:59 Intake Total 49.7 / 349.7 194. / 2144. 369.4 / 369.4 Balance 49.7 / 349.7 194. / 2144. 369.4 / 369.4 Lab / Micro Data Result Diagrams: 12/08/21 01:55 12/08/21 01:55 Labs: Laboratory Results - last 24 hr 12/07/21 11:56: POC Glucose 257 H 12/07/21 14:07: APTT 34.6 12/07/21 16:35: POC Glucose 333 H 12/07/21 19:10: APTT 39.3 H 12/07/21 20:30: POC Glucose 271 H 12/08/21 01:55: WBC 6.3, RBC 4.44 L, Hgb 12.0 L, Hct 37.0 L, MCV 83.3, MCH 27.0, MCHC 32.4, RDW Std Deviation 50.7 H, RDW Coeff of Prudence 16.5 H, Plt Count 219, MPV 11.0, Immature Gran % (Auto) 0.200, Neut % (Auto) 66.6, Lymph % (Auto) 22.5, [place] % (Auto) 9.3, Eos % (Auto) 0.9, Baso % (Auto) 0.5, Absolute Neuts (auto) 4.2, Absolute Lymphs (auto) 1.42, Nucleated RBC % 0 12/08/21 01:55: Sodium 138, Potassium 3.4 L, Chloride 104, Carbon Dioxide 28.0, Anion Gap 6, BUN 11, Creatinine 0.93, Estim Creat Clear Calc 108.53, Est GFR (MDRD) Af Amer 108, Est GFR (MDRD) Non-Af 89, BUN/Creatinine Ratio 11.8, Glucose 255 H, Calcium 7.9 L, Magnesium 1.9 12/08/21 01:55: Phosphorus 2.8 12/08/21 01:55: APTT 57.6 H 12/08/21 06:35: POC Glucose 192 H Radiography Diagnostic Testing: Radiology Impression Brain MRI 12/07/21 09:00 IMPRESSION: Involutional changes of the brain, as described above. Recent left frontal infarct. No hemorrhage. Electronically Signed: Moe Crawley MD at 10:50 EDT , ADDENDUM: 12/07/21 1104 IMPRESSION: Involutional changes of the brain, as described above. Recent left frontal infarct. No hemorrhage. N.B. : Ana Rosa Zafar RN, confirmed on 12/07/2021 10:58:00 (ET) that the healthcare facility has received the radiology report. Electronically Signed: Moe Crawley MD at 10:50 EDT , Brain CT 12/07/21 09:08 IMPRESSION: Chronic involutional changes of the brain. Electronically Signed: Moe Crawley MD at 9:48 EDT , Physical Exam Narrative Patient complain of headache in the morning started around 6 AM.? Patient on neuro protocol IV heparin drip for ischemic stroke.? IV drip was held.? CT head without contrast stat was done which did not show hemorrhagic conversion of ischemic stroke.? After MRI and CT scan rule out hemorrhagic infarct, IV heparin drip resumed without bolus. General: Alert, Oriented x3, Cooperative HEENT: Atraumatic, PERRLA, EOMI, Normocephalic Oral: No Gingival or Mucosal Lesions/ Ulcerations Neck: Supple, No JVD, Negative Carotid Bruits Lungs:? Air entry diminished in bilateral lung bases.? No crepitation/rhonchi Cardiovascular: Sinus rhythm on gas maker helper.? Regular rate, Regular Rhythm, Normal S1, Normal S2, No murmurs Abdomen: Bowel Sounds Present, Soft, Non Tender, Non-Distended : No renal angle tenderness.? No suprapubic tenderness. Extremities: No edema, Capillary Refill Less than 3 Seconds Skin: No rashes, No breakdown Musculoskeletal: No Tenderness to Palpation of Joints or Extremities Neurological: Multiple pauses, loss of fluency in? speech.? Language deficit one-point, dysarthria 1 mild left-sided droop, total NIH stroke scale 3.? No dysphagia. Psych/Mental Status: Normal Affect, Appropriate. Assessment & Plan Assessment/Plan (1) Acute CVA (cerebrovascular accident): PLAN: Plan This is a 56-year-old question gentleman who was admitted through ER for dysarthria and language deficit.? LKW not exactly clear as patient went to bed at night of 12/06 well but when he woke up he could not speak out or could not find words to explain or express himself.? Slowly was able to speak with pause and loss of fluency.? Patient came to ED in afternoon and was admitted.? CT head shows left frontal parietal ischemic infarction.? Acute patient also had cristine vated troponin most likely type II demand ischemia as patient did not have chest pain or shortness of breath.? Scouring Train Operator Chief was consulted in ED who recommended transfer to tertiary care with inpatient neurology and cardiology services.? ED physician talked to [facility] neurologist on phone and decided to admit in PCU on IV heparin drip neuro protocol. His further hospital course as follows: 1.? Acute left frontal ischemic infarct: Patient was admitted in PCU.? Patient had headache in the morning for which CT head stat was done which did not show hemorrhage or hemorrhagic conversion.? MRI brain shows left frontal infarct.? CTA head and neck shows less than 50% ICA and cavernous artery stenosis but no major hemodynamically significant stenosis or occlusion.? IV heparin drip was stopped as patient had headache to rule out hemorrhage and when it was ruled out it was resumed.? With high risk of hemorrhagic conversion, patient is being transferred to [facility] in hospitalist service as mentioned below.? I talked to the patient's significant other/ over the phone.? Initially patient did not want to go for [place] but agreed that sooner, timely transfer is important for the care rather than waiting here for several days to transfer to [facility].? Patient came to hospital and convince the patient. 2.? Non-STEMI most likely type II event: Patient did not have chest pain or shortness of breath.? Twelve-lead EKG shows normal sinus rhythm, LAE, LVH with repolarization abnormality rate 78 bpm.? Serial troponin shows downward trend.? After discussion with our crusher tender, Dr. Kay who preferred transfer to other hospital as further plan regarding intervention cardiac cath/a nticoagulation [place] high risk for hemorrhagic conversion of dry ischemic infarct therefore needs inpatient neurologist.? I talked to the patient and transfer call was given to [facility].? I talked to neurologist Dr. Dobson and crusher tender Dr. Tirado and they agreed with the plan for transfer but wanted the patient to be admitted in hospital service.? Scouring Train Operator Chief Dr. No does not think it is a primary non-STEMI event as patient did not have chest pain shortness of breath and had downward high serial troponins.? 2D echo is pending. 3.? Chronic combined systolic and diastolic heart failure: Last echo in July 2020 reported? reduced EF and stage II diastolic dysfunction.? RVSP 54 mmHg.? Moderate pulmonary hypertension he has crusher tender in [place] but does not know the name.? His primary physician is in similar location probably in [facility]. Mild hypokalemia: Patient on spironolactone.? Potassium replaced.? Monitor potassium, phosphorus and magnesium. 2.? Hypertension and dyslipidemia: Blood pressure is controlled.? Fasting profile shows LDL 154, total cholesterol 233.? Patient on high intensity statin. 3.? DM2: Metformin on hold.? Accu-Cheks and cover with Humalog sliding scale.? Glucose 175 in BMP. 4.? Anxiety/depression: Patient on Paxil and trazodone. DVT: Heparin drip Total time spent, exact 50minutes on meds reconciliation, examination, discussion with transfer line coordinator, exchange of clinical information with neurologist and crusher tender in [facility], [facility] crusher tender, coordination of care with nurses and ancillary staff, review of imaging and blood test and discussion with the patient? on follow-up instructions Charges/Coding Visit Charges Inpatient E&M: 33322 Subs Hosp L3
[2021-12-07 12:21] LABS: Bedside Glucose 257 mg/dL (74-106)
--- NOTE | 2021-12-07 12:58 | PCM.PN.CARD ---
Subjective Subjective The patient still has issues with dysarthria. He notes his speech comes and goes. He denies any ongoing chest discomfort or difficulty breathing at this time. The patient did complain of a headache earlier this day. At that time his IV heparin-neurologic dose-was placed on hold. He underwent a brain CT scan which was reported by radiology as being negative for any acute hemorrhagic change. Objective Data Vital Signs: Vital Signs Temp Pulse Resp BP Pulse Ox O2 Del Method 98.5 F 87 18 173/108 H 97 Room Air 12/07/21 11:54 12/07/21 11:54 12/07/21 11:54 12/07/21 11:54 12/07/21 11:54 12/07/21 11:54 Oxygen Delivery Method Room Air Weight: 199 lb 6.4 oz Body Mass Index (BMI) 24.9 Intake & Output: Intake and Output for Last 24 Hours 12/05/21 12/06/21 12/07/21 23:59 23:59 23:59 Intake Total 49.7 / 349.7 1264.42 / 1264.42 Balance 49.7 / 349.7 1264.42 / 1264.42 Lab / Micro Data Result Diagrams: 12/07/21 06:55 12/07/21 06:55 Labs: Laboratory Results - last 24 hr 12/06/21 14:00: POC Glucose 358 H 12/06/21 14:05: WBC 10.2, RBC 4.91, Hgb 13.6, Hct 40.7, MCV 82.9, MCH 27.7, MCHC 33.4, RDW Std Deviation 50.6 H, RDW Coeff of Prudence 16.7 H, Plt Count 299, MPV 11.4, Immature Gran % (Auto) 0.200, Neut % (Auto) 73.7 H, Lymph % (Auto) 17.9 L, Bennett % (Auto) 7.2, Eos % (Auto) 0.6, Baso % (Auto) 0.4, Absolute Neuts (auto) 7.6, Absolute Lymphs (auto) 1.83, Nucleated RBC % 0 12/06/21 14:05: PT 12.6, INR 1.0, APTT 28.1 12/06/21 14:05: Sodium 135 L, Potassium 3.6, Chloride 101, Carbon Dioxide 29.0, Anion Gap 5, BUN 16, Creatinine 1.20, Estim Creat Clear Calc 84.11, Est GFR (MDRD) Af Amer 81, Est GFR (MDRD) Non-Af 67, BUN/Creatinine Ratio 13.3, Glucose 363 H, Calcium 8.4 L, Troponin I High Sens 795 H* 12/06/21 18:28: Troponin I High Sens 556 H* 12/06/21 19:50: Troponin I High Sens 503 H* 12/06/21 22:26: POC Glucose 328 H 12/07/21 00:11: APTT 45.1 H 12/07/21 06:23: POC Glucose 168 H 12/07/21 06:55: WBC 8.3, RBC 4.64, Hgb 12.5 L, Hct 38.9 L, MCV 83.8, MCH 26.9 L, MCHC 32.1, RDW Std Deviation 51.4 H, RDW Coeff of Prudence 16.8 H, Plt Count 251, MPV 11.0, Immature Gran % (Auto) 0.200, Neut % (Auto) 68.9, Lymph % (Auto) 21.2, Bennett % (Auto) 7.9, Eos % (Auto) 1.2, Baso % (Auto) 0.6, Absolute Neuts (auto) 5.7, Absolute Lymphs (auto) 1.77, Nucleated RBC % 0 12/07/21 06:55: Sodium 138, Potassium 3.4 L, Chloride 103, Carbon Dioxide 28.0, Anion Gap 7, BUN 13, Creatinine 0.99, Estim Creat Clear Calc 101.95, Est GFR (MDRD) Af Amer 101, Est GFR (MDRD) Non-Af 83, BUN/Creatinine Ratio 13.1, Glucose 175 H, Calcium 8.0 L, Triglycerides 149, Cholesterol 233 H, LDL Cholesterol 154 H, VLDL Cholesterol 30, HDL Cholesterol 49 12/07/21 06:55: APTT 49.4 H 12/07/21 11:56: POC Glucose 257 H Cardiology Labs/Tests 12/06/21 14:05: WBC 10.2, RBC 4.91, Hgb 13.6, Hct 40.7, MCV 82.9, MCH 27.7, MCHC 33.4, Plt Count 299, MPV 11.4, Immature Gran % (Auto) 0.200, Neut % (Auto) 73.7 H, Lymph % (Auto) 17.9 L, Bennett % (Auto) 7.2, Eos % (Auto) 0.6, Baso % (Auto) 0.4, Absolute Neuts (auto) 7.6, Nucleated RBC % 0 12/06/21 14:05: PT 12.6, INR 1.0, APTT 28.1 12/06/21 14:05: Sodium 135 L, Potassium 3.6, Chloride 101, Carbon Dioxide 29.0, Anion Gap 5, BUN 16, Creatinine 1.20, Est GFR (MDRD) Af Amer 81, Est GFR (MDRD) Non-Af 67, BUN/Creatinine Ratio 13.3, Glucose 363 H, Calcium 8.4 L 12/07/21 00:11: APTT 45.1 H 12/07/21 06:55: WBC 8.3, RBC 4.64, Hgb 12.5 L, Hct 38.9 L, MCV 83.8, MCH 26.9 L, MCHC 32.1, Plt Count 251, MPV 11.0, Immature Gran % (Auto) 0.200, Neut % (Auto) 68.9, Lymph % (Auto) 21.2, Bennett % (Auto) 7.9, Eos % (Auto) 1.2, Baso % (Auto) 0.6, Absolute Neuts (auto) 5.7, Nucleated RBC % 0 12/07/21 06:55: Sodium 138, Potassium 3.4 L, Chloride 103, Carbon Dioxide 28.0, Anion Gap 7, BUN 13, Creatinine 0.99, Est GFR (MDRD) Af Amer 101, Est GFR (MDRD) Non-Af 83, BUN/Creatinine Ratio 13.1, Glucose 175 H, Calcium 8.0 L, Triglycerides 149, Cholesterol 233 H, LDL Cholesterol 154 H, VLDL Cholesterol 30, HDL Cholesterol 49 12/07/21 06:55: APTT 49.4 H Rhythm: Sinus rhythm EKG: Sinus rhythm; left atrial margin; findings compatible with LVH; ST and T wave changes potentially compatible with repolarization versus myocardial ischemia-lateral ECHO: Pending Radiography Diagnostic Testing: Radiology Impression Brain CT 12/06/21 14:04 IMPRESSION: There are findings of areas of low-density in the left frontal parietal lobe and left parietal lobe suggesting an acute ischemic infarction. Chronic involutional changes of the brain. Critical finding called and case discussed. Electronically Signed: Quentin Lau MD at 14:20 EDT , ADDENDUM: 12/06/21 1430 IMPRESSION: There are findings of areas of low-density in the left frontal parietal lobe and left parietal lobe suggesting an acute ischemic infarction. Chronic involutional changes of the brain. Critical finding called and case discussed. N.B. : The above Results were Read Back by Quentin Lau MD to Beto Roberts MD, and understanding confirmed on 12/06/2021 14:23:33 (ET). Electronically Signed: Quentin Lau MD at 14:20 EDT , Head/Neck CTA 12/06/21 14:04 IMPRESSION: 1. There is mild atherosclerotic plaque formation of the origin of the right internal carotid artery with less than 50% cross sectional diameter stenosis. ALL ABOVE CRITERIA BY NASCET. 2. There is mild atherosclerotic plaque formation of the origin of the left internal carotid artery with less than 50% cross sectional diameter stenosis. ALL ABOVE CRITERIA BY NASCET. 3. There is calcified plaque formation of the right cavernous carotid artery, with a mild stenosis (less than 50%). ALL ABOVE CRITERIA BY NASCET. 4. There is calcified plaque formation of the left cavernous carotid artery, with a mild stenosis (less than 50%). ALL ABOVE CRITERIA BY NASCET. Electronically Signed: Quentin Lau MD at 14:43 EDT , ADDENDUM: 12/06/21 1451 IMPRESSION: 1. There is mild atherosclerotic plaque formation of the origin of the right internal carotid artery with less than 50% cross sectional diameter stenosis. ALL ABOVE CRITERIA BY NASCET. 2. There is mild atherosclerotic plaque formation of the origin of the left internal carotid artery with less than 50% cross sectional diameter stenosis. ALL ABOVE CRITERIA BY NASCET. 3. There is calcified plaque formation of the right cavernous carotid artery, with a mild stenosis (less than 50%). ALL ABOVE CRITERIA BY NASCET. 4. There is calcified plaque formation of the left cavernous carotid artery, with a mild stenosis (less than 50%). ALL ABOVE CRITERIA BY NASCET. N.B. : The above Results were Read Back by Quentin Lau MD to Beto Roberts MD, and understanding confirmed on 12/06/2021 14:44:14 (ET). Electronically Signed: Quentin Lau MD at 14:43 EDT , Chest X-Ray 12/06/21 16:58 IMPRESSION: There are no acute findings. Electronically Signed: Quentin Lau MD at 17:31 EDT , Brain MRI 12/07/21 09:00 IMPRESSION: Involutional changes of the brain, as described above. Recent left frontal infarct. No hemorrhage. Electronically Signed: Moe Crawley MD at 10:50 EDT , ADDENDUM: 12/07/21 1104 IMPRESSION: Involutional changes of the brain, as described above. Recent left frontal infarct. No hemorrhage. N.B. : Ana Rosa Zafar RN, confirmed on 12/07/2021 10:58:00 (ET) that the healthcare facility has received the radiology report. Electronically Signed: Moe Crawley MD at 10:50 EDT , Brain CT 12/07/21 09:08 IMPRESSION: Chronic involutional changes of the brain. Electronically Signed: Moe Crawley MD at 9:48 EDT , Physical Exam Const alert, oriented x3 and no apparent distress Orientation / Consciousness: awake HEENT normocephalic, head/scalp atraumatic and hearing grossly normal bilaterally Eyes PERRL, EOMs intact bilaterally, conjunctivae normal and no scleral icterus Neck full ROM and supple Carotids: normal carotid upstroke Resp normal respiratory effort and clear to auscultation bilaterally Cardio regular rate, regular rhythm, S1 normal heart sound and S2 normal heart sound Heart Sounds: gallop S4 gallop GI normal to inspection, nondistended, normoactive bowel sounds Extremity no pedal edema Skin no rashes or lesions noted Psych cooperative Assessment & Plan Assessment/Plan (1) Non-STEMI (non-ST elevated myocardial infarction): PLAN: The patient presents with abnormal troponin I levels appearing compatible with an acute non-ST segment elevation [place]. At the moment it is unclear whether this is a type I event versus a type II event potentially related to the patient's hypertension and acute CVA event superimposed upon his history of left ventricular systolic dysfunction. The patient appears to be remaining without acute cardiovascular symptoms at this time. His troponin I levels are decreasing. His ECG is as noted. A request is made for her to follow-up transthoracic echocardiogram to evaluate his left ventricular wall motion and systolic function. In the interim he is being treated medically with a combination of aspirin, anticoagulants (neurologic dose) as deemed appropriate by neurology and internal medicine, beta-blockers, afterload reducing agents, and lipid-lowering agents. (2) Left ventricular systolic dysfunction (LVSD): PLAN: The patient has a history of left ventricular systolic dysfunction as previously noted. Based upon his history he has been following with the [facility] cardiology. It does not appear, based upon his history, that he has undergone additional noninvasive or invasive studies via the [facility]. He is continuing medical therapy at this time. His left ventricle can be reassessed with a transthoracic echocardiogram. (3) CHF (congestive heart failure): PLAN: The patient has a history of acute on chronic CHF. At the moment he appears without any acute symptoms. He does have symptoms of dyspnea as well as potentially orthopnea which compatible with his chronic CHF. He will need to be monitored for any acute changes. He will continue noninvasive valuation as noted. He will continue medical therapy with adjustment as deemed appropriate. (4) Acute CVA (cerebrovascular accident): PLAN: It appears the patient has experienced an acute CVA based upon his clinical presentation and objective findings. He remains dysarthric at this time. The patient did complain of a headache earlier this day. His IV heparin-neurologic dose-was placed on hold. He underwent a brain CT scan which was reported as negative for any acute hemorrhagic change. Internal medicine is placing the patient back on his IV heparin-neurologic dose. Internal medicine is also discussed his case with [facility]. At the present time they have accepted him in transfer for further multispecialty evaluation and care. (5) HLD (hyperlipidemia): PLAN: The patient has a history of hyperlipidemia. He should continue risk factor modification medical therapy. (6) HTN (hypertension): PLAN: The patient's blood pressure was markedly elevated upon arrival. The patient will continue to have his blood pressure monitored. He will continue medical therapy with adjustment to bring his blood pressure under better control per neurology recommendations. (7) Diabetes mellitus: PLAN: The patient has history of diabetes mellitus. He will continue evaluation and care per internal medicine. Addt'l Comments The patient's case was discussed and reviewed with the patient as well as Dr. Aguila. Dr. Jimenez's assistance with respect to the patient's evaluation and care and transfer to a tertiary care center for additional multispecialty evaluation and care is appreciated. This note was generated using a voice recognition system and there may be incorrect words, spelling or punctuation that were not noted when reviewing the office note prior to saving. Procedure Criteria Type of Procedure Procedure Type: Elective Elective Risks - COVID COVID Risk Discussion: The surgeon/proceduralist and patient have discussed in detail the risk of exposure to and/or potential harm posed by the COVID-19 virus with having a surgery/procedure at this time versus the risk of delaying the surgery/procedure. It is not possible to know either the risk of delaying the surgery or procedure or chance of getting an infection with perfect accuracy, but a joint decision was made between the patient and the surgeon/proceduralist to proceed at this time with the scheduled surgery/procedure as indicated on the consent form.
[2021-12-07] MEDS: 0.9% Saline Lock 10 ML Syringe IV (13:05)
[2021-12-07] MEDS: Potassium Chloride Oral Tablet 20 MEQ 40 MEQ PO (13:05)
[2021-12-07] MEDS: HEPARIN/D5w 25,000 UNITS 25,000 UNITS/250 ML IV.SOLN. 12 UNITS CONT INF (13:06)
[2021-12-07 14:24] LABS: Partial Thromboplast Time 34.6 Seconds (24.1-36.2)
[2021-12-07 16:56] LABS: Bedside Glucose 333 mg/dL (74-106)
[2021-12-07 19:34] LABS: Partial Thromboplast Time 39.3 Seconds (24.1-36.2)
[2021-12-07] MEDS: Heparin Injection (Vial) 5,000 UNIT/ML VIAL IV (19:47)
[2021-12-07] MEDS: Insulin Glargine-YFGN 100 UNIT/ML Pen 8 UNIT SC (20:32)
[2021-12-07] MEDS: traZODone 50 MG Tablet PO (20:33)
[2021-12-07] MEDS: Atorvastatin Calcium 80 MG Tablet PO (20:33)
[2021-12-07] MEDS: Paroxetine 20 MG Tablet PO (20:33)
[2021-12-07] MEDS: Carvedilol 6.25 MG Tablet PO (22:35)
[2021-12-07 22:36] LABS: Bedside Glucose 271 mg/dL (74-106)
[2021-12-08] VITALS (11 sets, daily range): BP systolic 157–189; BP diastolic 91–113; PULSE 71–83; RESP 16–18; TEMP 36.5–37; O2SAT 92–98; BMI 24.9
[2021-12-08 02:25] LABS: Absolute Lymphocyte Count 1.42 X10^3/uL (0.83-4.51); Absolute Neutrophil Count 4.2 X10^3/uL (2.0-7.7); Basophil# 0.03 X10^3/uL; Basophil% 0.5 % (0-1); Eosinophil# 0.06 X10^3/uL; Eosinophils% 0.9 % (0-5); Lymphocyte # 1.42 X10^3/ul (0.83-4.51); Lymphocyte % 22.5 % (19-41); Mean Corp Hgb Conc 32.4 g/dL (32-36); Mean Corpuscular Volume 83.3 fL (80-94); Monocyte# 0.59 X10^3/uL; Monocyte% 9.3 % (0-10); NRBC Flagged by Analyzer 0 % (0-5); Neutrophil # 4.21 X10^3/uL (2.7-7.7); Neutrophil % 66.6 % (47-70); Platelet Count 219 K/mm3 (150-450); RBC Distribution Width CV 16.5 % (11.6-14.6); RBC Distribution Width SD 50.7 fl (35.1-43.9); Red Blood Count 4.44 M/mm3 (4.6-6.2); White Blood Count 6.3 K/mm3 (4.4-11.0)
[2021-12-08 02:32] LABS: Partial Thromboplast Time 57.6 Seconds (24.1-36.2)
[2021-12-08 02:50] LABS: Anion Gap 6 (5-15); BUN 11 mg/dL (7-18); BUN/Creat Ratio 11.8 RATIO (10-20); Calcium,Total 7.9 mg/dL (8.5-10.1); Chloride 104 mmol/L (98-107); Creatinine, Serum 0.93 mg/dL (0.70-1.30); EST Glomerular Filtration Rate 89 mL/min (>60); Est Glom Filt Rate - Afr Amer 108 mL/min (>60); Estimated Creatinine Clearance 108.53 ml/min; Glucose 255 mg/dL (74-106); Magnesium 1.9 mg/dL (1.6-2.6); Potassium 3.4 mmol/L (3.5-5.1); Sodium Level 138 mmol/L (136-145)
[2021-12-08 02:55] LABS: Phosphorus 2.8 mg/dL (2.5-4.9)
[2021-12-08] MEDS: Insulin Lispro 100 UNIT/ML INSULN.PEN SC ×4 (06:36→22:37)
[2021-12-08 07:05] LABS: Bedside Glucose 192 mg/dL (74-106)
--- NOTE | 2021-12-08 07:37 | PCM.PN.CARD ---
Subjective Subjective The patient appears to be resting comfortably at this time. He denies ongoing chest discomfort or shortness of breath/dyspnea. He denies any ongoing headache. His spouse is with him at this time. She believes his speech is gradually improving. Objective Data Vital Signs: Vital Signs Temp Pulse Resp BP Pulse Ox O2 Del Method 97.8 F 71 18 157/91 H 94 Room Air 12/08/21 04:30 12/08/21 04:30 12/08/21 04:30 12/08/21 04:30 12/08/21 04:30 12/08/21 04:30 Oxygen Delivery Method Room Air Weight: 199 lb 6.4 oz Body Mass Index (BMI) 24.9 Intake & Output: Intake and Output for Last 24 Hours 12/06/21 12/07/21 12/08/21 23:59 23:59 23:59 Intake Total 49.7 / 349.7 1945.02 / 2145.02 200 / 200 Balance 49.7 / 349.7 1945. / 2145.02 200 / 200 Lab / Micro Data Result Diagrams: 12/08/21 01:55 12/08/21 01:55 Labs: Laboratory Results - last 24 hr 12/07/21 06:55: APTT 49.4 H 12/07/21 11:56: POC Glucose 257 H 12/07/21 14:07: APTT 34.6 12/07/21 16:35: POC Glucose 333 H 12/07/21 19:10: APTT 39.3 H 12/07/21 20:30: POC Glucose 271 H 12/08/21 01:55: WBC 6.3, RBC 4.44 L, Hgb 12.0 L, Hct 37.0 L, MCV 83.3, MCH 27.0, MCHC 32.4, RDW Std Deviation 50.7 H, RDW Coeff of Prudence 16.5 H, Plt Count 219, MPV 11.0, Immature Gran % (Auto) 0.200, Neut % (Auto) 66.6, Lymph % (Auto) 22.5, Cassia % (Auto) 9.3, Eos % (Auto) 0.9, Baso % (Auto) 0.5, Absolute Neuts (auto) 4.2, Absolute Lymphs (auto) 1.42, Nucleated RBC % 0 12/08/21 01:55: Sodium 138, Potassium 3.4 L, Chloride 104, Carbon Dioxide 28.0, Anion Gap 6, BUN 11, Creatinine 0.93, Estim Creat Clear Calc 108.53, Est GFR (MDRD) Af Amer 108, Est GFR (MDRD) Non-Af 89, BUN/Creatinine Ratio 11.8, Glucose 255 H, Calcium 7.9 L, Magnesium 1.9 12/08/21 01:55: Phosphorus 2.8 12/08/21 01:55: APTT 57.6 H 12/08/21 06:35: POC Glucose 192 H Cardiology Labs/Tests 12/07/21 06:55: APTT 49.4 H 12/07/21 14:07: APTT 34.6 12/07/21 19:10: APTT 39.3 H 12/08/21 01:55: WBC 6.3, RBC 4.44 L, Hgb 12.0 L, Hct 37.0 L, MCV 83.3, MCH 27.0, MCHC 32.4, Plt Count 219, MPV 11.0, Immature Gran % (Auto) 0.200, Neut % (Auto) 66.6, Lymph % (Auto) 22.5, Cassia % (Auto) 9.3, Eos % (Auto) 0.9, Baso % (Auto) 0.5, Absolute Neuts (auto) 4.2, Nucleated RBC % 0 12/08/21 01:55: Sodium 138, Potassium 3.4 L, Chloride 104, Carbon Dioxide 28.0, Anion Gap 6, BUN 11, Creatinine 0.93, Est GFR (MDRD) Af Amer 108, Est GFR (MDRD) Non-Af 89, BUN/Creatinine Ratio 11.8, Glucose 255 H, Calcium 7.9 L, Magnesium 1.9 12/08/21 01:55: Phosphorus 2.8 12/08/21 01:55: APTT 57.6 H Rhythm: Sinus rhythm Radiography Diagnostic Testing: Radiology Impression Brain MRI 12/07/21 09:00 IMPRESSION: Involutional changes of the brain, as described above. Recent left frontal infarct. No hemorrhage. Electronically Signed: Moe Crawley MD at 10:50 EDT , ADDENDUM: 12/07/21 1104 IMPRESSION: Involutional changes of the brain, as described above. Recent left frontal infarct. No hemorrhage. N.B. : Ana Rosa Zafar RN, confirmed on 12/07/2021 10:58:00 (ET) that the healthcare facility has received the radiology report. Electronically Signed: Moe Crawley MD at 10:50 EDT , Brain CT 12/07/21 09:08 IMPRESSION: Chronic involutional changes of the brain. Electronically Signed: Moe Crawley MD at 9:48 EDT , Physical Exam Const alert, oriented x3 and no apparent distress Orientation / Consciousness: awake HEENT normocephalic, head/scalp atraumatic and hearing grossly normal bilaterally Eyes PERRL, EOMs intact bilaterally, conjunctivae normal and no scleral icterus Neck full ROM and supple Carotids: normal carotid upstroke Resp normal respiratory effort and clear to auscultation bilaterally Cardio regular rate, regular rhythm, S1 normal heart sound and S2 normal heart sound Heart Sounds: gallop S4 gallop GI normal to inspection, nondistended, normoactive bowel sounds Extremity no pedal edema Skin no rashes or lesions noted Psych cooperative Assessment & Plan Assessment/Plan (1) Non-STEMI (non-ST elevated myocardial infarction): PLAN: The patient presents with abnormal troponin I levels appearing compatible with an acute non-ST segment elevation [place]. At the moment it is unclear whether this is a type I event versus a type II event potentially related to the patient's hypertension and acute CVA event superimposed upon his history of left ventricular systolic dysfunction. The patient appears to be remaining without acute cardiovascular symptoms at this time. His troponin I levels are decreasing. A request is made for her to follow-up transthoracic echocardiogram to evaluate his left ventricular wall motion and systolic function. In the interim he is being treated medically with a combination of aspirin, anticoagulants (neurologic dose) as deemed appropriate by neurology and internal medicine, beta-blockers, afterload reducing agents, and lipid-lowering agents. (2) Left ventricular systolic dysfunction (LVSD): PLAN: The patient has a history of left ventricular systolic dysfunction as previously noted. Based upon his history he has been following with the [facility] cardiology. It does not appear, based upon his history, that he has undergone additional noninvasive or invasive studies via the [facility]. He is continuing medical therapy at this time. His left ventricle can be reassessed with a transthoracic echocardiogram. (3) CHF (congestive heart failure): PLAN: The patient has a history of acute on chronic CHF. At the moment he appears without any acute symptoms. He does have symptoms of dyspnea as well as potentially orthopnea which compatible with his chronic CHF. He will need to be monitored for any acute changes. He will continue noninvasive valuation as noted. He will continue medical therapy with adjustment as deemed appropriate. (4) Acute CVA (cerebrovascular accident): PLAN: It appears the patient has experienced an acute CVA based upon his clinical presentation and objective findings. He remains dysarthric at this time. His spouse believes his speech is gradually improving. Internal medicine is placing the patient back on his IV heparin-neurologic dose. Internal medicine is also discussed his case with [facility]. At the present time they have accepted him in transfer for further multispecialty evaluation and care. (5) HLD (hyperlipidemia): PLAN: The patient has a history of hyperlipidemia. He should continue risk factor modification medical therapy. (6) HTN (hypertension): PLAN: The patient's blood pressure was markedly elevated upon arrival. The patient will continue to have his blood pressure monitored. He will continue medical therapy with adjustment to bring his blood pressure under better control per neurology recommendations. (7) Diabetes mellitus: PLAN: The patient has history of diabetes mellitus. He will continue evaluation and care per internal medicine. Addt'l Comments The patient's case has been discussed and reviewed with the patient and his spouse. The patient's case has previously been discussed and reviewed with Dr. Aguila. This note was generated using a voice recognition system and there may be incorrect words, spelling or punctuation that were not noted when reviewing the office note prior to saving. Procedure Criteria Type of Procedure Procedure Type: Elective Elective Risks - COVID COVID Risk Discussion: The surgeon/proceduralist and patient have discussed in detail the risk of exposure to and/or potential harm posed by the COVID-19 virus with having a surgery/procedure at this time versus the risk of delaying the surgery/procedure. It is not possible to know either the risk of delaying the surgery or procedure or chance of getting an infection with perfect accuracy, but a joint decision was made between the patient and the surgeon/proceduralist to proceed at this time with the scheduled surgery/procedure as indicated on the consent form.
--- NOTE | 2021-12-08 07:44 | NURSING ---
I spoke to with Yady [facility] transfer line pt is on the wait list. She stated they are d/c dependent and hopefully will have a few today so he could have a bed today.
[2021-12-08] MEDS: HEPARIN/D5w 25,000 UNITS 25,000 UNITS/250 ML IV.SOLN. 14 UNITS CONT INF (08:07)
[2021-12-08] MEDS: Aspirin 81 MG TAB.CHEW PO (08:15)
[2021-12-08] MEDS: Spironolactone 25 MG Tablet PO (08:15)
[2021-12-08] MEDS: Lisinopril 20 MG Tablet PO (08:15)
[2021-12-08] MEDS: Carvedilol 6.25 MG Tablet PO ×2 (08:15→22:37)
[2021-12-08 08:37] LABS: Partial Thromboplast Time 55.4 Seconds (24.1-36.2)
[2021-12-08 11:05] LABS: Bedside Glucose 265 mg/dL (74-106)
--- NOTE | 2021-12-08 13:51 | CASEMGMT ---
Social Work Consult: PHQ-9 assessment due to positive stroke Referral source: Self referral See attached PHQ-9 assessment for complete details. Patient with score on PHQ-9. Patient reports to have support in the community and to have no concerns when patient returns to living in the community. Nomi Lee MSW, MARC
--- NOTE | 2021-12-08 14:18 | PCM.PN.HOSP ---
Subjective Subjective Follow-up for acute ischemic left frontal stroke. Patient is still has dysarthria. No chest pain or shortness of breath. Sinus rhythm on buckle wire inserter. Objective Data Objective Data Vital Signs: Vital Signs Temp Pulse Resp BP Pulse Ox O2 Del Method 98.2 F 82 16 181/113 H 98 Room Air 12/08/21 08:09 12/08/21 14:03 12/08/21 08:09 12/08/21 08:09 12/08/21 08:09 12/08/21 08:09 Oxygen Delivery Method Room Air Weight: 199 lb 6.4 oz Body Mass Index (BMI) 24.9 Intake & Output: Intake and Output for Last 24 Hours 12/06/21 12/07/21 12/08/21 23:59 23:59 23:59 Intake Total 49.7 / 349.7 1945.02 / 2145.02 383.4 / 383.4 Balance 49.7 / 349.7 1945.02 / 2145.02 383.4 / 383.4 Lab / Micro Data Result Diagrams: 12/08/21 01:55 12/08/21 01:55 Labs: Laboratory Results - last 24 hr 12/07/21 14:07: APTT 34.6 12/07/21 16:35: POC Glucose 333 H 12/07/21 19:10: APTT 39.3 H 12/07/21 20:30: POC Glucose 271 H 12/08/21 01:55: WBC 6.3, RBC 4.44 L, Hgb 12.0 L, Hct 37.0 L, MCV 83.3, MCH 27.0, MCHC 32.4, RDW Std Deviation 50.7 H, RDW Coeff of Prudence 16.5 H, Plt Count 219, MPV 11.0, Immature Gran % (Auto) 0.200, Neut % (Auto) 66.6, Lymph % (Auto) 22.5, [place] % (Auto) 9.3, Eos % (Auto) 0.9, Baso % (Auto) 0.5, Absolute Neuts (auto) 4.2, Absolute Lymphs (auto) 1.42, Nucleated RBC % 0 12/08/21 01:55: Sodium 138, Potassium 3.4 L, Chloride 104, Carbon Dioxide 28.0, Anion Gap 6, BUN 11, Creatinine 0.93, Estim Creat Clear Calc 108.53, Est GFR (MDRD) Af Amer 108, Est GFR (MDRD) Non-Af 89, BUN/Creatinine Ratio 11.8, Glucose 255 H, Calcium 7.9 L, Magnesium 1.9 12/08/21 01:55: Phosphorus 2.8 12/08/21 01:55: APTT 57.6 H 12/08/21 06:35: POC Glucose 192 H 12/08/21 07:35: APTT 55.4 H 12/08/21 10:42: POC Glucose 265 H Radiography Diagnostic Testing: Radiology Impression Echocardiogram 12/06/21 17:59 Interpretation Summary Normal LV size. Moderate concentric left ventricular hypertrophy. The left atrium is moderately enlarged. Pulmonary artery systolic pressure is 35 mmHg. The estimated ejection fraction is 50 %. Bileaflet diffuse mitral valve thickening. Mild (1+) eccentric mitral valve insufficiency. Ordering Physician: Kavon Mandel Performed By: Johnnie Goel RCS Physical Exam Narrative Seen and examined. No headache. General: Alert, Oriented x3, Cooperative HEENT: Atraumatic, PERRLA, EOMI, Normocephalic Oral: No Gingival or Mucosal Lesions/ Ulcerations Neck: Supple, No JVD, Negative Carotid Bruits Lungs:? Air entry diminished in bilateral lung bases.? No crepitation/rhonchi Cardiovascular: Sinus rhythm on buckle wire inserter.? Regular rate, Regular Rhythm, Normal S1, Normal S2, No murmurs Abdomen: Bowel Sounds Present, Soft, Non Tender, Non-Distended : No renal angle tenderness.? No suprapubic tenderness. Extremities: No edema, Capillary Refill Less than 3 Seconds Skin: No rashes, No breakdown Musculoskeletal: No Tenderness to Palpation of Joints or Extremities Neurological: Multiple pauses, loss of fluency in? speech.? Language deficit one-point, dysarthria 1 mild left-sided droop, total NIH stroke scale 3.? No dysphagia. Psych/Mental Status: Normal Affect, Appropriate. Assessment & Plan Assessment/Plan (1) Acute CVA (cerebrovascular accident): PLAN: Plan This is a 56-year-old question gentleman who was admitted through ER for dysarthria and language deficit.? LKW not exactly clear as patient went to bed at night of 12/06 well but when he woke up he could not speak out or could not find words to explain or express himself.? Slowly was able to speak with pause and loss of fluency.? Patient came to ED in afternoon and was admitted.? CT head shows left frontal parietal ischemic infarction.? Acute patient also had elevated troponin most likely type II demand ischemia as patient did not have chest pain or shortness of breath.? Road Contractor was consulted in ED who recommended transfer to tertiary care with inpatient neurology and cardiology services.? ED physician talked to [facility] neurologist on phone and decided to admit in PCU on IV heparin drip neuro protocol. His further hospital course as follows: 1.? Acute left frontal ischemic infarct: Patient was admitted in PCU.? Patient had headache in the morning for which CT head stat was done which did not show hemorrhage or hemorrhagic conversion.? MRI brain shows left frontal infarct.? CTA head and neck shows less than 50% ICA and cavernous artery stenosis but no major hemodynamically significant stenosis or occlusion.? IV heparin drip was stopped as patient had headache to rule out hemorrhage and when it was ruled out it was resumed.? With high risk of hemorrhagic conversion, patient is being transferred to [facility] in hospitalist service as mentioned below.? I talked to the patient's significant other/ over the phone.? Initially patient did not want to go for [facility] but agreed that sooner, timely transfer is important for the care rather than waiting here for several days to transfer to [facility].? Patient came to hospital and convinced the patient. 12/08: Patient is still did not get bed in [facility]. [facility] neurology consult for opinion/recommendation regarding continuation of IV heparin drip/changing to oral anticoagulant. Continue PT OT and speech evaluation and treatment. 2.? Non-STEMI most likely type II event: Patient did not have chest pain or shortness of breath.? Twelve-lead EKG shows normal sinus rhythm, LAE, LVH with repolarization abnormality rate 78 bpm.? Serial troponin shows downward trend.? After discussion with our egg breaking machine operator, Dr. Kay who preferred transfer to other hospital as further plan regarding intervention cardiac cath/anticoagulation [place] high risk for hemorrhagic conversion of dry ischemic infarct therefore needs inpatient neurologist.? I talked to the patient and transfer call was given to [facility].? I talked to neurologist Dr. Dobson and egg breaking machine operator Dr. Tirado and they agreed with the plan for transfer but wanted the patient to be admitted in hospital service.? Road Contractor Dr. No does not think it is a primary non-STEMI event as patient did not have chest pain shortness of breath and had downward high serial troponins.? 12/08: 2D echo was done. It is reported as EF 50%, LA moderately enlarged. Mild eccentric MR. Bubble contrast read negative for [id number] interatrial shunt. 3.? Chronic combined systolic and diastolic heart failure: Last echo in July 2020 reported? reduced EF and stage II diastolic dysfunction.? RVSP 54 mmHg.? Moderate pulmonary hypertension he has egg breaking machine operator in [place] but does not know the name.? His primary physician is in similar location probably in [facility]. Mild hypokalemia: Patient on spironolactone.? Potassium replaced.? Monitor potassium, phosphorus and magnesium. 12/08: Electrolytes K3.4. Magnesium 1.9 normal. Phosphorus 2.8. 2.? Hypertension and dyslipidemia: Blood pressure is controlled.? Fasting profile shows LDL 154, total cholesterol 233.? Patient on high intensity statin. 3.? DM2: Metformin on hold.? Accu-Cheks and cover with Humalog sliding scale.? Glucose 175 in BMP. 12/08: Glucose is high. Lantus dose increased. 4.? Anxiety/depression: Patient on Paxil and trazodone. DVT: Heparin drip Total time of the visit including total time spent in counseling or coordination of care, (more than 50% of the total time, spent in obtaining medical information from nurses and other ancillary care providers,explaining to the patient about labs, imaging, diagnosis and management of active complex medical conditions), cardiology and neuro consult, review of labs and imaging is 40 minutes. Laboratory Results 12/07/21 16:35: POC Glucose 333 H 12/07/21 19:10: APTT 39.3 H 12/07/21 20:30: POC Glucose 271 H 12/08/21 01:55: WBC 6.3, RBC 4.44 L, Hgb 12.0 L, Hct 37.0 L, MCV 83.3, MCH 27.0, MCHC 32.4, RDW Std Deviation 50.7 H, RDW Coeff of Prudence 16.5 H, Plt Count 219, MPV 11.0, Immature Gran % (Auto) 0.200, Neut % (Auto) 66.6, Lymph % (Auto) 22.5, [place] % (Auto) 9.3, Eos % (Auto) 0.9, Baso % (Auto) 0.5, Absolute Neuts (auto) 4.2, Absolute Lymphs (auto) 1.42, Nucleated RBC % 0 12/08/21 01:55: Sodium 138, Potassium 3.4 L, Chloride 104, Carbon Dioxide 28.0, Anion Gap 6, BUN 11, Creatinine 0.93, Estim Creat Clear Calc 108.53, Est GFR (MDRD) Af Amer 108, Est GFR (MDRD) Non-Af 89, BUN/Creatinine Ratio 11.8, Glucose 255 H, Calcium 7.9 L, Magnesium 1.9 12/08/21 01:55: Phosphorus 2.8 12/08/21 01:55: APTT 57.6 H 12/08/21 06:35: POC Glucose 192 H 12/08/21 07:35: APTT 55.4 H 12/08/21 10:42: POC Glucose 265 H Charges/Coding Visit Charges Inpatient E&M: 50198 Subs Hosp L3
--- NOTE | 2021-12-08 15:46 | TELEMED_ITS ---
[facility] Telemed has confirmed receipt of a request for visit. This document confirms receipt of the order initiating the consult. To find the results of the consultation, please view the patient's reports for the scanned Telemed Consult.
[2021-12-08 16:05] LABS: Bedside Glucose 273 mg/dL (74-106)
[2021-12-08] MEDS: Potassium Chloride Oral Tablet 20 MEQ 40 MEQ PO (17:48)
[2021-12-08] MEDS: Atorvastatin Calcium 80 MG Tablet PO (22:37)
[2021-12-08] MEDS: Paroxetine 20 MG Tablet PO (22:37)
[2021-12-08] MEDS: traZODone 50 MG Tablet PO (22:37)
[2021-12-08 23:00] LABS: Bedside Glucose 264 mg/dL (74-106)
[2021-12-09 01:03] VITALS: BMI 24.9
[2021-12-09 02:01] VITALS: BP 136/72; PULSE 66; RESP 18; TEMP 36.8; O2SAT 96
[2021-12-09 03:00] VITALS: PULSE 67
[2021-12-09 06:25] VITALS: BP 166/99; PULSE 78; RESP 18; TEMP 36.8; O2SAT 96
[2021-12-09] MEDS: Insulin Lispro 100 UNIT/ML INSULN.PEN SC (06:31)
[2021-12-09 06:32] LABS: Absolute Lymphocyte Count 1.11 X10^3/uL (0.83-4.51); Absolute Neutrophil Count 4.4 X10^3/uL (2.0-7.7); Basophil# 0.03 X10^3/uL; Basophil% 0.5 % (0-1); Eosinophils% 1.6 % (0-5); Hematocrit 37.8 % (40-54); Hemoglobin 12.2 g/dL (13.0-16.5); Lymphocyte # 1.11 X10^3/ul (0.83-4.51); Lymphocyte % 17.9 % (19-41); Mean Corp Hgb Conc 32.3 g/dL (32-36); Mean Corpuscular Hgb 26.9 pg (27.0-32.0); Mean Corpuscular Volume 83.3 fL (80-94); Mean Platelet Vol. 11.5 fl (6.2-12.0); Monocyte# 0.58 X10^3/uL; Monocyte% 9.4 % (0-10); NRBC Flagged by Analyzer 0 % (0-5); Neutrophil # 4.36 X10^3/uL (2.7-7.7); Neutrophil % 70.4 % (47-70); Platelet Count 221 K/mm3 (150-450); RBC Distribution Width CV 16.3 % (11.6-14.6); RBC Distribution Width SD 49.4 fl (35.1-43.9); Red Blood Count 4.54 M/mm3 (4.6-6.2); White Blood Count 6.2 K/mm3 (4.4-11.0)
[2021-12-09 06:40] LABS: Partial Thromboplast Time 29.4 Seconds (24.1-36.2)
[2021-12-09 06:56] LABS: Bedside Glucose 153 mg/dL (74-106)
[2021-12-09 06:58] LABS: Anion Gap 4 (5-15); BUN 9 mg/dL (7-18); BUN/Creat Ratio 10.6 RATIO (10-20); Calcium,Total 8.6 mg/dL (8.5-10.1); Chloride 107 mmol/L (98-107); Creatinine, Serum 0.85 mg/dL (0.70-1.30); EST Glomerular Filtration Rate 99 mL/min (>60); Est Glom Filt Rate - Afr Amer 120 mL/min (>60); Estimated Creatinine Clearance 118.74 ml/min; Glucose 175 mg/dL (74-106); Potassium 3.9 mmol/L (3.5-5.1); Sodium Level 139 mmol/L (136-145)
[2021-12-09 07:00] VITALS: PULSE 75
--- NOTE | 2021-12-09 08:29 | NURSING ---
Sonu King RN asked me to call [facility] transfer line to verify if pt is still on the wait list for a bed. I spoke with Mitzy with the transfer line and she stated he was cancelled off the wait list per Gretel (PLATFORM BEATER) 12-09-21 @ [id number].
--- NOTE | 2021-12-09 08:59 | PN.CARD_ITS ---
Subjective Subjective The patient denies any ongoing chest discomfort or difficulty breathing at this time. He believes his speech is gradually improving. Objective Data Vital Signs: Vital Signs Temp Pulse Resp BP Pulse Ox O2 Del Method 98.2 F 75 18 166/99 H 96 Room Air 12/09/21 06:25 12/09/21 07:00 12/09/21 06:25 12/09/21 06:25 12/09/21 06:25 12/09/21 06:25 Oxygen Delivery Method Room Air Weight: 199 lb 6.4 oz Body Mass Index (BMI) 24.9 Intake & Output: Intake and Output for Last 24 Hours 12/07/21 12/08/21 12/09/21 23:59 23:59 23:59 Intake Total 1944.02 / 2144. 603.0 / 603.0 0 / 0 Balance 194. / 2144. 603.0 / 603.0 0 / 0 Lab / Micro Data Result Diagrams: 12/09/21 06:10 12/09/21 06:10 Labs: Laboratory Results - last 24 hr 12/08/21 10:42: POC Glucose 265 H 12/08/21 15:35: POC Glucose 273 H 12/08/21 22:36: POC Glucose 264 H 12/09/21 06:10: WBC 6.2, RBC 4.54 L, Hgb 12.2 L, Hct 37.8 L, MCV 83.3, MCH 26.9 L, MCHC 32.3, RDW Std Deviation 49.4 H, RDW Coeff of Prudence 16.3 H, Plt Count 221, MPV 11.5, Immature Gran % (Auto) 0.200, Neut % (Auto) 70.4 H, Lymph % (Auto) 17.9 L, [place] % (Auto) 9.4, Eos % (Auto) 1.6, Baso % (Auto) 0.5, Absolute Neuts (auto) 4.4, Absolute Lymphs (auto) 1.11, Nucleated RBC % 0 12/09/21 06:10: Sodium 139, Potassium 3.9, Chloride 107, Carbon Dioxide 28.0, Anion Gap 4 L, BUN 9, Creatinine 0.85, Estim Creat Clear Calc 118.74, Est GFR (MDRD) Af Amer 120, Est GFR (MDRD) Non-Af 99, BUN/Creatinine Ratio 10.6, Glucose 175 H, Calcium 8.6 12/09/21 06:10: APTT 29.4 12/09/21 06:30: POC Glucose 153 H Cardiology Labs/Tests 12/09/21 06:10: WBC 6.2, RBC 4.54 L, Hgb 12.2 L, Hct 37.8 L, MCV 83.3, MCH 26.9 L, MCHC 32.3, Plt Count 221, MPV 11.5, Immature Gran % (Auto) 0.200, Neut % (Auto) 70.4 H, Lymph % (Auto) 17.9 L, [place] % (Auto) 9.4, Eos % (Auto) 1.6, Baso % (Auto) 0.5, Absolute Neuts (auto) 4.4, Nucleated RBC % 0 12/09/21 06:10: Sodium 139, Potassium 3.9, Chloride 107, Carbon Dioxide 28.0, Anion Gap 4 L, BUN 9, Creatinine 0.85, Est GFR (MDRD) Af Amer 120, Est GFR (MDRD) Non-Af 99, BUN/Creatinine Ratio 10.6, Glucose 175 H, Calcium 8.6 12/09/21 06:10: APTT 29.4 Rhythm: Sinus rhythm Radiography Diagnostic Testing: Radiology Impression Echocardiogram 12/06/21 17:59 Interpretation Summary Normal LV size. Moderate concentric left ventricular hypertrophy. The left atrium is moderately enlarged. Pulmonary artery systolic pressure is 35 mmHg. The estimated ejection fraction is 50 %. Bileaflet diffuse mitral valve thickening. Mild (1+) eccentric mitral valve insufficiency. Ordering Physician: Kavon Mandel Performed By: Johnnie Goel RCS Physical Exam Const alert, oriented x3 and no apparent distress Orientation / Consciousness: awake HEENT normocephalic, head/scalp atraumatic and hearing grossly normal bilaterally Eyes PERRL, EOMs intact bilaterally, conjunctivae normal and no scleral icterus Neck full ROM and supple Carotids: normal carotid upstroke Resp normal respiratory effort and clear to auscultation bilaterally Cardio regular rate, regular rhythm, S1 normal heart sound and S2 normal heart sound Heart Sounds: gallop S4 gallop GI normal to inspection, nondistended, normoactive bowel sounds Extremity no pedal edema Skin no rashes or lesions noted Psych cooperative Assessment & Plan Assessment/Plan (1) Non-STEMI (non-ST elevated myocardial infarction): PLAN: The patient presents with abnormal troponin I levels appearing compatible with an acute non-ST segment elevation MD. At the moment it is unclear whether this is a type I event versus a type II event potentially related to the patient's hypertension and acute CVA event superimposed upon his history of left ventricular systolic dysfunction. The patient appears to be remaining without acute cardiovascular symptoms at this time. The patient underwent transthoracic echocardiogram as noted. In the interim he is being treated medically with a combination of aspirin, anticoagulants (neurologic dose) as deemed appropriate by neurology and internal medicine, beta-blockers, afterload reducing agents, and lipid-lowering agents. There are no cardiovascular plans at this time for additional cardiovascular diagnostic studies/intervention. As he recuperates from his CVA he can follow- up with his [facility] bulk intake worker to be considered for further noninvasive or invasive evaluation based upon his cardiac enzyme change, ECG change, etc., if thought not to all be related to his acute ORCHARD WORKER event, as deemed appropriate. (2) Left ventricular systolic dysfunction (LVSD): PLAN: The patient has a history of left ventricular systolic dysfunction as previously noted. Based upon his history he has been following with the [facility] cardiology. It does not appear, based upon his history, that he has undergone additional noninvasive or invasive studies via the [facility]. He is continuing medical therapy at this time. His left ventricle can be reassessed with a transthoracic echocardiogram. (3) CHF (congestive heart failure): PLAN: The patient has a history of acute on chronic CHF. At the moment he appears without any acute symptoms. He does have symptoms of dyspnea as well as potentially orthopnea which compatible with his chronic CHF. He will need to be monitored for any acute changes. He will continue medical therapy with adjustment as deemed appropriate. (4) Acute CVA (cerebrovascular accident): PLAN: It appears the patient has experienced an acute CVA based upon his clinical presentation and objective findings. He remains dysarthric at this time. His speech does appear to be gradually impr oving compared to his day of admission. He underwent a teleneurology consultation yesterday evening. It appears that they recommended no prolonged IV anticoagulation therapy and continued oral therapy and no need from a neurologic standpoint for transfer to a tertiary care center. The patient will need continued outpatient follow-up and speech therapy/rehabilitation-either outpatient or inpatient as deemed appropriate. (5) HLD (hyperlipidemia): PLAN: The patient has a history of hyperlipidemia. He should continue risk factor modification medical therapy. (6) HTN (hypertension): PLAN: The patient's blood pressure was markedly elevated upon arrival. The patient will continue to have his blood pressure monitored. He will continue medical therapy with adjustment to bring his blood pressure under better control per neurology recommendations. (7) Diabetes mellitus: PLAN: The patient has history of diabetes mellitus. He will continue evaluation and care per internal medicine. Addt'l Comments The patient's case was discussed and reviewed with the patient and Dr. Jimenez This note was generated using a voice recognition system and there may be incorrect words, spelling or punctuation that were not noted when reviewing the office note prior to saving.
[2021-12-09 09:38] VITALS: O2SAT 95
--- NOTE | 2021-12-09 09:56 | CASEMGMT ---
Addendum entered by Ann Marie Mendoza 12/09/21 13:07: Pt states only has [facility] benefit and would like to take scripts to [facility] today to fill and does not want to pay the $29.25 self pay caldwell in the [facility] pharmacy. Dr. Aguila aware and he is going to print scripts for pt and pt to be discharged. Pt voices no further questions/concerns/needs. Tanja WILBURN CM Addendum entered by Ann Marie Mendoza 12/09/21 12:25: Pt still awaiting speech eval but pt is ready to d/c. Ruthann RN to room to discuss with pt. OP speech order to Ruthann, if pt does decide to leave. Tanja WILBURN CM Addendum entered by Ann Marie Mendoza 12/09/21 11:26: Per PT/OT, no further therapy needed at d/c. Still awaiting speech recommendations. Tanja WILBURN CM Original Note: Plan is to no longer transfer pt to [facility] d/t improved sx's. Therapy aware to see pt and speech to be notified as well. CM to follow for recommendations. Tanja WILBURN CM
[2021-12-09 10:00] VITALS: BP 170/99; PULSE 79; RESP 16; TEMP 36.8; O2SAT 97
--- NOTE | 2021-12-09 10:05 | PN.HOSP_ITS ---
Objective Data Objective Data Vital Signs: Vital Signs Temp Pulse Resp BP Pulse Ox O2 Del Method 98.2 F 75 18 166/99 H 95 Room Air 12/09/21 06:25 12/09/21 07:00 12/09/21 06:25 12/09/21 06:25 12/09/21 09:38 12/09/21 09:38 Oxygen Delivery Method Room Air Weight: 199 lb 6.4 oz Body Mass Index (BMI) 24.9 Intake & Output: Intake and Output for Last 24 Hours 12/07/21 12/08/21 12/09/21 23:59 23:59 23:59 Intake Total 1945.02 / 2144.02 603.0 / 603.0 0 / 0 Balance 1945.02 / 2144.02 603.0 / 603.0 0 / 0 Lab / Micro Data Result Diagrams: 12/09/21 06:10 12/09/21 06:10 Labs: Laboratory Results - last 24 hr 12/08/21 10:42: POC Glucose 265 H 12/08/21 15:35: POC Glucose 273 H 12/08/21 22:36: POC Glucose 264 H 12/09/21 06:10: WBC 6.2, RBC 4.54 L, Hgb 12.2 L, Hct 37.8 L, MCV 83.3, MCH 26.9 L, MCHC 32.3, RDW Std Deviation 49.4 H, RDW Coeff of Prudence 16.3 H, Plt Count 221, MPV 11.5, Immature Gran % (Auto) 0.200, Neut % (Auto) 70.4 H, Lymph % (Auto) 17.9 L, [place] % (Auto) 9.4, Eos % (Auto) 1.6, Baso % (Auto) 0.5, Absolute Neuts (auto) 4.4, Absolute Lymphs (auto) 1.11, Nucleated RBC % 0 12/09/21 06:10: Sodium 139, Potassium 3.9, Chloride 107, Carbon Dioxide 28.0, Anion Gap 4 L, BUN 9, Creatinine 0.85, Estim Creat Clear Calc 118.74, Est GFR (MDRD) Af Amer 120, Est GFR (MDRD) Non-Af 99, BUN/Creatinine Ratio 10.6, Glucose 175 H, Calcium 8.6 12/09/21 06:10: APTT 29.4 12/09/21 06:30: POC Glucose 153 H Radiography Diagnostic Testing: Radiology Impression Echocardiogram 12/06/21 17:59 Interpretation Summary Normal LV size. Moderate concentric left ventricular hypertrophy. The left atrium is moderately enlarged. Pulmonary artery systolic pressure is 35 mmHg. The estimated ejection fraction is 50 %. Bileaflet diffuse mitral valve thickening. Mild (1+) eccentric mitral valve insufficiency. Ordering Physician: Kavon Mandel Performed By: Johnnie Goel RCS
--- NOTE | 2021-12-09 10:06 | DCINST_ITS ---
Discharge Instructions Diet Discharge Diet: Low fat / Low cholesterol Follow Up Care Test Results: Test results from this visit will be discussed in further detail at your follow- up appointment, if applicable. Discharge Plan Admission Admit Date/Time: 12/06/21 16:22 Primary Reason for Your Visit: Attending Provider: Jesus Aguila Primary Care Provider: [facility] Consulting Providers: Beto Kay ; Kavon Mandel Instructions Additional Instructions / Restrictions: Patient has appointment with OR fisher lampara net in [place]. He has OR primary care in [place]. Discharge Orders/Prescriptions Prescriptions: New atorvastatin 80 mg Tablet 80 mg PO QHS Qty: 30 2RF aspirin 81 mg Tablet,Chewable 81 mg PO BREAKFAST Qty: 30 2RF clopidogrel [Plavix] 75 mg tablet 75 mg PO DAILY Qty: 30 0RF Continued metformin 500 mg Tablet 1,000 mg PO BIDCM paroxetine HCl 10 mg Tablet 20 mg PO QHS trazodone 50 mg Tablet 50 mg PO QHS gabapentin 300 mg Capsule 300 mg PO TID fluticasone propionate 50 mcg/actuation [place],Suspension 2 spray INTRANASAL DAILY ascorbic acid (vitamin C) 500 mg Tablet 500 mg PO BIDCM Qty: 60 0RF nitroglycerin 0.4 mg Tablet, Sublingual 0.4 mg sublingual Q5M PRN (Reason: Cardiac/Chest Pain) Qty: 30 0RF carvedilol 6.25 mg tablet 6.25 mg PO BID Qty: 60 2RF Rx Instructions: must administer with a meal/food spironolactone 25 mg tablet 25 mg PO DAILY Qty: 30 1RF lisinopril 10 mg tablet 20 mg PO DAILY Rx Instructions: Hold for SBP less than 120 mmHg furosemide [Lasix] 40 mg tablet 40 mg PO BID Qty: 60 1RF [facility] - Beto Kay MD [Med Staff - Active Staff] - Within 1 Month (If patient not able to see his fisher lampara net) Francisco Eid MD [Non-Staff -Ordering Privileges] - Within 2 Weeks Disposition Disposition (needs filled in before D/C Order can be placed): Home Health Service
[2021-12-09] MEDS: Aspirin 81 MG TAB.CHEW PO (10:46)
[2021-12-09] MEDS: Spironolactone 25 MG Tablet PO (10:46)
[2021-12-09] MEDS: Carvedilol 6.25 MG Tablet PO (10:47)
[2021-12-09] MEDS: Lisinopril 20 MG Tablet PO (10:47)
--- NOTE | 2021-12-09 11:59 | PHA.DC.MC ---
Pharmacy Service has performed discharge medication reconciliation and counseling for this patient. 1. ASPIRIN 81MG PO BREAKFAST 2. ATORVASTATIN 80MG PO QHS 3. CLOPIDOGREL 75MG PO DAILY The patient's discharge medication list was reviewed for discrepancies and discrepancies were resolved. Home Medications fluticasone propionate 50 mcg/actuation nasal spray,suspension 2 spray intranasal DAILY allergies 07/24/20 gabapentin 300 mg capsule 300 mg PO TID neuropathy 07/24/20 metformin 500 mg tablet 1,000 mg PO BIDCM diabetes 07/24/20 paroxetine HCl 10 mg tablet 20 mg PO QHS depression 07/24/20 trazodone 50 mg tablet 50 mg PO QHS sleep 07/24/20 ascorbic acid (vitamin C) 500 mg tablet 500 mg PO BIDCM #60 tabs 07/26/20 carvedilol 6.25 mg tablet 6.25 mg PO BID #60 tabs 07/26/20 nitroglycerin 0.4 mg sublingual tablet 0.4 mg sublingual Q5M PRN Cardiac/Chest Pain #30 tabs 07/26/20 spironolactone 25 mg tablet 25 mg PO DAILY #30 tabs 07/26/20 lisinopril 10 mg tablet 20 mg PO DAILY blood pressure 12/06/21 aspirin 81 mg chewable tablet 81 mg PO BREAKFAST #30 tabs 12/09/21 atorvastatin 80 mg tablet 80 mg PO QHS #30 tabs 12/09/21 clopidogrel 75 mg tablet (Plavix) 75 mg PO DAILY #30 tabs 12/09/21 furosemide 40 mg tablet (Lasix) 40 mg PO BID #60 tabs 12/09/21 The patient was counseled on the following discharge medications and changes in medications for homegoing were reviewed. The Reason for Use, instructions for use, and potential side effects were reviewed for all new medications. The patient's questions regarding all of their medications were answered. The patient was able to verbally demonstrate an understanding of their discharge medications.
--- NOTE | 2021-12-09 13:18 | NURSING ---
Pt refused BG check and all insulin for this am.
--- NOTE | 2021-12-09 13:21 | PCM.DC.SUM ---
Providers Date of Admission: 12/06/21 Date of Discharge: 12/09/21 Primary Care Physician: [facility] Consultations 12/06/21 17:59 Consult: Cardiology Routine Consulting Provider: Beto Kay Reason for Consult: NSTEMI EMERGENT Consult: No MD Notified: Yes Date Notified: 12/06/21 Time Notified: 16:25 Method of Notification: ED Physician Initiated Reason For Visit: CVA AND NSTEMI Diagnosis Discharge Diagnosis (1) Non-STEMI (non-ST elevated myocardial infarction): Status: Acute Code(s): I21.4 - Non-ST elevation (NSTEMI) myocardial infarction (2) Left ventricular systolic dysfunction (LVSD): Status: Acute Code(s): I51.9 - Heart disease, unspecified (3) CHF (congestive heart failure): Status: Acute Code(s): I50.9 - Heart failure, unspecified (4) Acute CVA (cerebrovascular accident): Status: Acute Code(s): I63.9 - Cerebral infarction, unspecified (5) HLD (hyperlipidemia): Status: Acute Code(s): E78.5 - Hyperlipidemia, unspecified (6) HTN (hypertension): Status: Chronic Code(s): I10 - Essential (primary) hypertension (7) Diabetes mellitus: Status: Acute Code(s): E11.9 - Type 2 diabetes mellitus without complications Medications at Discharge Home Medications fluticasone propionate 50 mcg/actuation nasal spray,suspension 2 spray intranasal DAILY allergies 07/24/20 gabapentin 300 mg capsule 300 mg PO TID neuropathy 07/24/20 metformin 500 mg tablet 1,000 mg PO BIDCM diabetes 07/24/20 paroxetine HCl 10 mg tablet 20 mg PO QHS depression 07/24/20 trazodone 50 mg tablet 50 mg PO QHS sleep 07/24/20 ascorbic acid (vitamin C) 500 mg tablet 500 mg PO BIDCM #60 tabs 07/26/20 carvedilol 6.25 mg tablet 6.25 mg PO BID #60 tabs 07/26/20 nitroglycerin 0.4 mg sublingual tablet 0.4 mg sublingual Q5M PRN Cardiac/Chest Pain #30 tabs 07/26/20 spironolactone 25 mg tablet 25 mg PO DAILY #30 tabs 07/26/20 lisinopril 10 mg tablet 20 mg PO DAILY blood pressure 12/06/21 aspirin 81 mg chewable tablet 81 mg PO BREAKFAST #30 tabs 12/09/21 atorvastatin 80 mg tablet 80 mg PO QHS #30 tabs 12/09/21 clopidogrel 75 mg tablet (Plavix) 75 mg PO DAILY #30 tabs 12/09/21 furosemide 40 mg tablet (Lasix) 40 mg PO BID #60 tabs 12/09/21 Hospital Course Summary of Care Provided Hospital Course: This is a 56-year-old question gentleman who was admitted through ER for dysarthria and language deficit.? LKW not exactly clear as patient went to bed at night of 12/06 well but when he woke up he could not speak out or could not find words to explain or express himself.? Slowly was able to speak with pause and loss of fluency.? Patient came to ED in afternoon and was admitted.? CT head shows left frontal parietal ischemic infarction.? Acute patient also had elevated troponin most likely type II demand ischemia as patient did not have chest pain or shortness of breath.? Mattress Stripper was consulted in ED who recommended transfer to tertiary care with inpatient neurology and cardiology services.? ED physician talked to [facility] neurologist on phone and decided to admit in PCU on IV heparin drip neuro protocol. His further hospital course as follows: 1.? Acute left frontal ischemic infarct: Patient was admitted in PCU.? Patient had headache in the morning for which CT head stat was done which did not show hemorrhage or hemorrhagic conversion.? MRI brain shows left frontal infarct.? CTA head and neck shows less than 50% ICA and cavernous artery stenosis but no major hemodynamically significant stenosis or occlusion.? IV heparin drip was stopped as patient had headache to rule out hemorrhage and when it was ruled out it was resumed.? With high risk of hemorrhagic conversion, patient is being transferred to [facility] in hospitalist service as mentioned below.? I talked to the patient's significant other/ over the phone.? Initially patient did not want to go for [facility] but agreed that sooner, timely transfer is important for the care rather than waiting here for several days to transfer to [facility].? Patient came to hospital and convinced the patient. 12/08: Patient is still did not get bed in [facility].? [facility] neurology consult for opinion/recommendation regarding continuation of IV heparin drip/changing to oral anticoagulant.? Continue PT OT and speech evaluation and treatment. 12/09: As patient had obvious left frontal ischemic infarct therefore patient is discharged on dual antiplatelet agent at least for 21 days and then aspirin to continue. High intensity statin. No anticoagulant recommended by [facility] neurologist. No reason for transfer to ICU as per recommendation. Discussed with the technical lead Dr. Kay. Outpatient speech therapy recommended. Discussed with the patient's 2.? Non-STEMI most likely type II event: Patient did not have chest pain or shortness of breath.? Twelve-lead EKG shows normal sinus rhythm, LAE, LVH with repolarization abnormality rate 78 bpm.? Serial troponin shows downward trend.? After discussion with our technical lead, Dr. Kay who preferred transfer to other hospital as further plan regarding intervention cardiac cath/anticoagulation [place] high risk for hemorrhagic conversion of dry ischemic infarct therefore needs inpatient neurologist.? I talked to the patient and transfer call was given to [facility].? I talked to neurologist Dr. Dobson and technical lead Dr. Tirado and they agreed with the plan for transfer but wanted the patient to be admitted in hospital service.? Mattress Stripper Dr. No does not think it is a primary non-STEMI event as patient did not have chest pain shortness of breath and had downward high serial troponins.? 12/08: 2D echo was done.? It is reported as EF 50%, LA moderately enlarged.? Mild eccentric MR.? Bubble contrast read negative for [id number] interatrial shunt. 12/09: Patient has follow-up with technical lead through [facility] in [place] tomorrow. Reinforced the importance of cardiology office visit to patient and his near the bedside. 3.? Chronic combined systolic and diastolic heart failure: Last echo in July 2020 reported? reduced EF and stage II diastolic dysfunction.? RVSP 54 mmHg.? Moderate pulmonary hypertension he has technical lead in [place] but does not know the name.? His primary physician is in similar location probably in [facility]. Mild hypokalemia: Patient on spironolactone.? Potassium replaced.? Monitor potassium, phosphorus and magnesium. 12/08: Electrolytes K3.4.? Magnesium 1.9 normal.? Phosphorus 2.8. 2.? Hypertension and dyslipidemia: Blood pressure is controlled.? Fasting profile shows LDL 154, total cholesterol 233.? Patient on high intensity statin. 3.? DM2: Metformin on hold.? Accu-Cheks and cover with Humalog sliding scale.? Glucose 175 in BMP. 12/08: Glucose is high.? Lantus dose increased. 12/09: Advised to follow with PCP for optimal control of glucose. 4.? Anxiety/depression: Patient on Paxil and trazodone. DVT: Heparin drip Discharge medication reconciliation done. Discharge follow-up instructions completed. Discharge process discussed with the patient and all questions were answered to patient's satisfaction. Total time spent, exact 35 minutes on discharge meds reconciliation, examination, coordination of care with nurses and ancillary staff, review of imaging and blood test and discussion with the patient on follow-up instructions. Laboratory Results 12/08/21 22:36: POC Glucose 264 H 12/09/21 06:10: WBC 6.2, RBC 4.54 L, Hgb 12.2 L, Hct 37.8 L, MCV 83.3, MCH 26.9 L, MCHC 32.3, RDW Std Deviation 49.4 H, RDW Coeff of Prudence 16.3 H, Plt Count 221, MPV 11.5, Immature Gran % (Auto) 0.200, Neut % (Auto) 70.4 H, Lymph % (Auto) 17.9 L, [place] % (Auto) 9.4, Eos % (Auto) 1.6, Baso % (Auto) 0.5, Absolute Neuts (auto) 4.4, Absolute Lymphs (auto) 1.11, Nucleated RBC % 0 12/09/21 06:10: Sodium 139, Potassium 3.9, Chloride 107, Carbon Dioxide 28.0, Anion Gap 4 L, BUN 9, Creatinine 0.85, Estim Creat Clear Calc 118.74, Est GFR (MDRD) Af Amer 120, Est GFR (MDRD) Non-Af 99, BUN/Creatinine Ratio 10.6, Glucose 175 H, Calcium 8.6 12/09/21 06:10: APTT 29.4 12/09/21 06:30: POC Glucose 153 H Clinical Impression(s) from Imaging Studies Brain CT 12/06/21 14:04 IMPRESSION: There are findings of areas of low-density in the left frontal parietal lobe and left parietal lobe suggesting an acute ischemic infarction. Chronic involutional changes of the brain. Critical finding called and case discussed. Electronically Signed: Quentin Lau MD at 14:20 EDT , ADDENDUM: 12/06/21 1430 IMPRESSION: There are findings of areas of low-density in the left frontal parietal lobe and left parietal lobe suggesting an acute ischemic infarction. Chronic involutional changes of the brain. Critical finding called and case discussed. N.B. : The above Results were Read Back by Quentin Lau MD to Beto Roberts MD, and understanding confirmed on 12/06/2021 14:23:33 (ET). Electronically Signed: Quetnin Lau MD at 14:20 EDT , Head/Neck CTA 12/06/21 14:04 IMPRESSION: 1. There is mild atherosclerotic plaque formation of the origin of the right internal carotid artery with less than 50% cross sectional diameter stenosis. ALL ABOVE CRITERIA BY NASCET. 2. There is mild atherosclerotic plaque formation of the origin of the left internal carotid artery with less than 50% cross sectional diameter stenosis. ALL ABOVE CRITERIA BY NASCET. 3. There is calcified plaque formation of the right cavernous carotid artery, with a mild stenosis (less than 50%). ALL ABOVE CRITERIA BY NASCET. 4. There is calcified plaque formation of the left cavernous carotid artery, with a mild stenosis (less than 50%). ALL ABOVE CRITERIA BY NASCET. Chest X-Ray 12/06/21 16:58 IMPRESSION: There are no acute findings. Electronically Signed: Quentin Lau MD at 17:31 EDT , Brain MRI 12/07/21 09:00 IMPRESSION: Involutional changes of the brain, as described above. Recent left frontal infarct. No hemorrhage. Brain CT 12/07/21 09:08 IMPRESSION: Chronic involutional changes of the brain. Physical Exam Narrative Seen and examined. Patient is patient is speech is much improved. His fluency, clarity has much improved. His pauses are less. [facility] neurologist saw the patient yesterday and said no need for heparin drip or anticoagulant agent. Continue daily aspirin and high intensity statin. General: Alert, Oriented x3, Cooperative HEENT: Atraumatic, PERRLA, EOMI, Normocephalic Oral: No Gingival or Mucosal Lesions/ Ulcerations Neck: Supple, No JVD, Negative Carotid Bruits Lungs:? Air entry diminished in bilateral lung bases.? No crepitation/rhonchi Cardiovascular: Sinus rhythm on library monitor.? Regular rate, Regular Rhythm, Normal S1, Normal S2, No murmurs Abdomen: Bowel Sounds Present, Soft, Non Tender, Non-Distended : No renal angle tenderness.? No suprapubic tenderness. Extremities: No edema, Capillary Refill Less than 3 Seconds Skin: No rashes, No breakdown Musculoskeletal: No Tenderness to Palpation of Joints or Extremities Neurological: Multiple pauses, loss of fluency in? speech.? Language deficit one-point, dysarthria 1 mild left-sided droop, total NIH stroke scale 3.? No dysphagia. Psych/Mental Status: Normal Affect, Appropriate. Weight / BMI Weight Weight: 199 lb 6.4 oz Body Mass Index (BMI) 24.9 ABG / Lab / Microbiology Data Result Diagrams: 12/09/21 06:10 12/09/21 06:10 Laboratory: Laboratory Results - last 24 hr 12/06/21 18:28: Troponin I High Sens 556 H* 12/06/21 19:50: Troponin I High Sens 503 H* 12/06/21 22:26: POC Glucose 328 H 12/07/21 00:11: APTT 45.1 H 12/07/21 06:23: POC Glucose 168 H 12/07/21 06:55: WBC 8.3, RBC 4.64, Hgb 12.5 L, Hct 38.9 L, MCV 83.8, MCH 26.9 L, MCHC 32.1, RDW Std Deviation 51.4 H, RDW Coeff of Prudence 16.8 H, Plt Count 251, MPV 11.0, Immature Gran % (Auto) 0.200, Neut % (Auto) 68.9, Lymph % (Auto) 21.2, Hodgeman % (Auto) 7.9, Eos % (Auto) 1.2, Baso % (Auto) 0.6, Absolute Neuts (auto) 5.7, Absolute Lymphs (auto) 1.77, Nucleated RBC % 0 12/07/21 06:55: Sodium 138, Potassium 3.4 L, Chloride 103, Carbon Dioxide 28.0, Anion Gap 7, BUN 13, Creatinine 0.99, Estim Creat Clear Calc 101.95, Est GFR (MDRD) Af Amer 101, Est GFR (MDRD) Non-Af 83, BUN/Creatinine Ratio 13.1, Glucose 175 H, Calcium 8.0 L, Triglycerides 149, Cholesterol 233 H, LDL Cholesterol 154 H, VLDL Cholesterol 30, HDL Cholesterol 49 12/07/21 06:55: APTT 49.4 H 12/07/21 11:56: POC Glucose 257 H 12/07/21 14:07: APTT 34.6 Radiography Diagnostic Testing: Radiology Impression Chest X-Ray 12/06/21 16:58 IMPRESSION: There are no acute findings. Electronically Signed: Quentin Lau MD at 17:31 EDT , Brain MRI 12/07/21 09:00 IMPRESSION: Involutional changes of the brain, as described above. Recent left frontal infarct. No hemorrhage. Electronically Signed: Moe Crawley MD at 10:50 EDT , ADDENDUM: 12/07/21 1104 IMPRESSION: Involutional changes of the brain, as described above. Recent left frontal infarct. No hemorrhage. N.B. : Ana Rosa Zafar RN, confirmed on 12/07/2021 10:58:00 (ET) that the healthcare facility has received the radiology report. Electronically Signed: Moe Crawley MD at 10:50 EDT , Brain CT 12/07/21 09:08 IMPRESSION: Chronic involutional changes of the brain. Electronically Signed: Moe Crawley MD at 9:48 EDT , Meaningful Use Info Meaningful Use Diagnoses (Choose all that apply): Ischemic CVA CVA Therapy Assessed for PT,OT and/or ST?: Yes Ischemic Stroke Antithrombotic order at d/c?: Yes Dx of Atrial fib/flutter?: No Anticoagulant at discharge?: Yes Statins at discharge?: Yes Primary Dx Acute Ischemic CVA?: Yes IV tPA ordered during stay?: No Reason IV t-PA not ordered: Treatment not Indicated Discharge Plan Admission Admit Date/Time: 12/06/21 16:22 Primary Reason for Your Visit: Attending Provider: Jesus Aguila Primary Care Provider: [facility] Consulting Providers: Beto Kay ; Kavon Mandel Instructions Additional Instructions / Restrictions: Patient has appointment with [facility] technical lead in [place]. He has [facility] primary care in [place]. Discharge Orders/Prescriptions Prescriptions: New atorvastatin 80 mg Tablet 80 mg PO QHS Qty: 30 2RF aspirin 81 mg Tablet,Chewable 81 mg PO BREAKFAST Qty: 30 2RF clopidogrel [Plavix] 75 mg tablet 75 mg PO DAILY Qty: 30 0RF Continued metformin 500 mg Tablet 1,000 mg PO BIDCM paroxetine HCl 10 mg Tablet 20 mg PO QHS trazodone 50 mg Tablet 50 mg PO QHS gabapentin 300 mg Capsule 300 mg PO TID fluticasone propionate 50 mcg/actuation [place],Suspension 2 spray INTRANASAL DAILY ascorbic acid (vitamin C) 500 mg Tablet 500 mg PO BIDCM Qty: 60 0RF nitroglycerin 0.4 mg Tablet, Sublingual 0.4 mg sublingual Q5M PRN (Reason: Cardiac/Chest Pain) Qty: 30 0RF carvedilol 6.25 mg tablet 6.25 mg PO BID Qty: 60 2RF Rx Instructions: must administer with a meal/food spironolactone 25 mg tablet 25 mg PO DAILY Qty: 30 1RF lisinopril 10 mg tablet 20 mg PO DAILY Rx Instructions: Hold for SBP less than 120 mmHg furosemide [Lasix] 40 mg tablet 40 mg PO BID Qty: 60 1RF Referrals / Follow Up: Beto Kay MD [Med Staff - Active Staff] - Within 1 Month (If patient not able to see his technical lead) Francisco Eid MD [Non-Staff -Ordering Privileges] - 01/19/22 8:[address] [facility] [Primary Care Provider] - Disposition Disposition (needs filled in before D/C Order can be placed): Home Health Service Charges/Coding Visit Charges Inpatient E&M: 44776 [facility]
[2021-12-09 13:23] VITALS: BMI 24.9
--- NOTE | 2021-12-09 13:38 | NURSING ---
Charting reviewed with Aure Lal RN
== END 2021-12-09 13:32 | disposition home health service (06) | DRG 64 ==
LOC: ED 15:49 → PCU 16:54
PROVIDERS: Admitting Provider Family Medicine; Emergency Provider Emergency Medicine; Visit Provider Internal Medicine
DX: I63.89 Other cerebral infarction (principal); I21.A1 Myocardial infarction type 2; I21.4 Non-ST elevation (NSTEMI) myocardial infarction; I50.42 Chronic combined systolic (congestive) and diastolic (congestive) heart failure; I27.20 Pulmonary hypertension, unspecified; I11.0 Hypertensive heart disease with heart failure; E11.65 Type 2 diabetes mellitus with hyperglycemia; E87.6 Hypokalemia; E78.00 Pure hypercholesterolemia, unspecified; F41.9 Anxiety disorder, unspecified; F17.210 Nicotine dependence, cigarettes, uncomplicated; R29.702 NIHSS score 2; F32.A Depression, unspecified; R47.81 Slurred speech; R29.810 Facial weakness; Z23 Encounter for immunization; Z79.899 Other long term (current) drug therapy; Z79.84 Long term (current) use of oral hypoglycemic drugs; Z79.51 Long term (current) use of inhaled steroids
CPT/HCPCS: 36415; 70450; 70496; 70498; 70551; 71045; 80048; 80061; 82962; 83735; 84100; 84484; 85025; 85610; 85730; 92523; 92610; 93005; 93306; 94762; 97802; 99284; 99406; Q9967; 90686; A4216

== ENCOUNTER 2024-08-28 15:36 | Inpatient (IN) | payer OTHER, SELFPAY ==
[2024-08-28] VITALS (13 sets, daily range): BP systolic 101–146; BP diastolic 60–92; PULSE 56–87; RESP 16–18; TEMP 36.1–37; O2SAT 96–100; BMI 27.1; BMI 27.3
--- NOTE | 2024-08-28 15:59 | EX.ED.DYSGE1 ---
HPI History of Present Illness Chief Complaint: Lower Extremity Injury Narrative Narrative: Chief complaint and HPI: Right foot infection. 59-year-old male with past medical history of DM2, HTN, HLD, CHF presents for evaluation of right foot infection. 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 He states several days ago he developed ecchymosis, swelling, erythema, pain in the large toe of his right foot. He denies any injury that he knows of. States he does have peripheral neuropathy. Redness, swelling, warmth, pain, increasing and moving up into the calf. He denies any fever, chills, nausea, vomiting. Review of systems: See HPI Medications: As listed on the chart Allergies: As listed on the chart PFSH: Per chart Vital signs: As listed on the chart. Reviewed. Physical exam: Gen: A&O x3, NAD Head: Normocephalic, atraumatic Eyes: No sclera icterus, conjunctiva clear ENT: Moist mucous membranes Neck: Trachea midline, No JVD CV: RRR, no murmurs, no peripheral edema Resp: Lungs CTA BL, no w/r/c GI: Abd soft, non-distended, non-tender, no r/r/g Musc: Full ROM, no deformity, patient has erythema, warmth, edema of the right large toe as well as the foot, ankle, distal calf. Area is mildly tender to palpation. He has ecchymosis to the dorsum of the large toe and slightly into the dorsal of the distal foot, no fluctuance/drainage/purulence/crepitus, toenail intact without obvious ulcer/laceration, DP/PT pulses diminished but dopplerable, compartments soft Skin: Warm, dry Neuro: Alert, oriented, grossly intact Psych: Cooperative, appropriate mood and affect [facility] Medical History (Updated 12/17/21 @ 00:01 by Background Diana) Diabetes mellitus HTN (hypertension) HLD (hyperlipidemia) CHF (congestive heart failure) Left ventricular systolic dysfunction (LVSD) Non-STEMI (non-ST elevated myocardial infarction) Acute CVA (cerebrovascular accident) Congestive heart failure Diabetes mellitus, type 2 Dyslipidemia Depression Anxiety Smoker Hypertension Home Medications ?Medication ?Instructions ?Recorded ?Last Taken ?Type fluticasone propionate 50 2 spray intranasal DAILY allergies 07/24/20 08/28/24 History mcg/actuation nasal spray,suspension gabapentin 300 mg capsule 300 mg PO TID neuropathy 07/24/20 08/28/24 History metformin 500 mg tablet 1,000 mg PO BIDCM diabetes 07/24/20 08/28/24 History trazodone 50 mg tablet 50 mg PO QHS sleep 07/24/20 08/27/24 History ascorbic acid (vitamin C) 500 mg 500 mg PO BIDCM #60 tabs 07/26/20 Unknown Rx tablet carvedilol 6.25 mg tablet 6.25 mg PO BID #60 tabs 07/26/20 08/28/24 Rx nitroglycerin 0.4 mg sublingual 0.4 mg sublingual Q5M PRN 07/26/20 Unknown Rx tablet Cardiac/Chest Pain #30 tabs spironolactone 25 mg tablet 25 mg PO DAILY #30 tabs 07/26/20 08/28/24 Rx aspirin 81 mg chewable tablet 81 mg PO BREAKFAST #30 tabs 12/09/21 08/28/24 Rx atorvastatin 80 mg tablet 80 mg PO QHS #30 tabs 12/09/21 08/27/24 Rx ciclopirox 8 % topical solution 1 applic topical DAILY 08/28/24 08/28/24 History (Ciclodan) empagliflozin 25 mg tablet 25 mg PO DAILY 08/28/24 08/28/24 History (Jardiance) hydrophilic cream 1 applic topical TID PRN dry skin 08/28/24 08/28/24 History omeprazole 20 mg capsule,delayed 20 mg PO DAILY 08/28/24 08/28/24 History release paroxetine HCl 30 mg tablet 30 mg PO DAILY 08/28/24 08/27/24 History sacubitril 97 mg-valsartan 103 mg 1 tab PO BID 08/28/24 08/28/24 History tablet (Entresto) Allergy/AdvReac Type Severity Reaction Status Date / Time No Known Allergies Allergy Verified 08/28/24 15:37 Family History (Updated 12/06/21 @ 17:[address] Kavon Mandel MD) Other Diabetes Heart disease Hypertension Social History Smoking Status: Current every day smoker tobacco type: cigarettes EXAM Physical Exam Const Vital Signs: 08/28/24 15:36 08/28/24 16:41 08/28/24 17:00 Temperature 98.4 F 98.4 F 98.6 F Temperature Source Oral Oral Temporal Pulse Rate 67 59 L 58 L Respiratory Rate 16 18 17 Blood Pressure 145/88 H 137/70 H 146/70 H Blood Pressure Mean 107 92 95 Pulse Ox 100 97 99 Oxygen Delivery Method Room Air Room Air MDM MDM MDM Narrative Medical decision making narrative: 59-year-old male with past medical history of DM2, HTN, HLD, CHF presents for evaluation of right foot infection. 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 He states several days ago he developed ecchymosis, swelling, erythema, pain in the large toe of his right foot that is progressively worsening. See physical exam findings. Differential diagnosis includes but is not limited to cellulitis, osteomyelitis, fracture, bacteremia. NS bolus, morphine, Zofran ordered. Broad-spectrum antibiotics with Zosyn and vancomycin ordered. Infectious labs ordered including x-ray of the foot. CBC with mild leukocytosis 11.9. Patient has anemia with a hemoglobin of 10.4. Previous labs are from 2021 had anemia at that time. ESR elevated at 52. CRP elevated at 155. BMP consistent with renal insufficiency and hyperglycemia. Patient is a known diabetic. Again labs are from 2021, unknown if this is chronic renal insufficiency or acute. X-ray of the right foot was personally reviewed interpreted by me, ED physician. No fracture or dislocation. Per radiology soft tissue swelling and gas involving the first toe. Ill-defined and irregular cortical margins along the anterior medial aspect of the right first distal phalanx, suspicious for osteomyelitis. Patient will warrant admission for IV antibiotics and possible amputation. I did reach out to podiatry and spoke with Dr. Avelar. He will come down to the emergency department and evaluate the patient for possible amputation today. Patient is n.p.o. and has not eaten today. Patient will warrant admission with the hospitalist service. Podiatry evaluated the patient, plan is for OR today. Patient was discussed with the hospitalist service who accepted admission. Patient was updated of all results and the plan. He confirmed understanding. Impression: 1. Right first toe osteomyelitis 2. Diabetic foot infection 3. Renal insufficiency 4. Hyperglycemia in a known diabetic Lab Data Labs: Laboratory Results - last 24 hr 08/28/24 16:05 WBC 11.9 H RBC 3.61 L Hgb 10.4 L Hct 31.1 L MCV 86.1 MCH 28.8 MCHC 33.4 RDW Std Deviation 39.1 RDW Coeff of Prudence 12.5 Plt Count 357 MPV 9.9 Immature Gran % (Auto) 0.500 Neut % (Auto) 77.5 H Lymph % (Auto) 13.4 L [place] % (Auto) 7.6 Eos % (Auto) 0.6 Baso % (Auto) 0.4 Absolute Neuts (auto) 9.2 H Absolute Lymphs (auto) 1.59 Nucleated RBC % 0 ESR 52 H Sodium 134 Potassium 4.0 Chloride 98 Carbon Dioxide 21.8 Anion Gap 15 BUN 24 H Creatinine 1.93 H Estim Creat Clear Calc 50.47 Est GFR (MDRD) Non-Af 40 L BUN/Creatinine Ratio 12.5 Glucose 201 H Lactic Acid 1.3 Calcium 9.0 C-React Prot Ext Range 155.00 H Radiography Diagnostic Testing: Clinical Impression(s) from Imaging Studies Foot X-Ray 08/28/24 16:32 IMPRESSION: 1. Soft tissue swelling and gas involving the 1st toe. 2. Ill-defined and irregular cortical margins along the anteromedial aspect of the right 1st distal phalanx, suspicious for associated osteomyelitis. Reading Location: [facility] Discharge Plan Triage Chief Complaint: Lower Extremity Injury ED Provider: Johnnie Vines Dx/Rx/DC Orders Prescriptions: No Action metformin 500 mg Tablet 1,000 mg PO BIDCM trazodone 50 mg Tablet 50 mg PO QHS gabapentin 300 mg Capsule 300 mg PO TID fluticasone propionate 50 mcg/actuation [place],Suspension 2 spray INTRANASAL DAILY ascorbic acid (vitamin C) 500 mg Tablet 500 mg PO BIDCM Qty: 60 0RF nitroglycerin 0.4 mg Tablet, Sublingual 0.4 mg sublingual Q5M PRN (Reason: Cardiac/Chest Pain) Qty: 30 0RF carvedilol 6.25 mg tablet 6.25 mg PO BID Qty: 60 2RF Rx Instructions: must administer with a meal/food spironolactone 25 mg tablet 25 mg PO DAILY Qty: 30 1RF atorvastatin 80 mg Tablet 80 mg PO QHS Qty: 30 2RF aspirin 81 mg Tablet,Chewable 81 mg PO BREAKFAST Qty: 30 2RF ciclopirox [Ciclodan] 8 % solution 1 applic topical DAILY paroxetine HCl 30 mg tablet 30 mg PO DAILY Entresto 97-103 mg tablet 1 tab PO BID hydrophilic cream Cream 1 applic topical TID PRN (Reason: dry skin) omeprazole 20 mg capsule,delayed release(DR/EC) 20 mg PO DAILY Jardiance 25 mg tablet 25 mg PO DAILY [facility] [Primary [facility] Provider] - Print Language: Georgian
[2024-08-28] MEDS: Piperacil/Tazobactam 4.5 GM in 0.9% Normal Saline (100mL MB+) 100 ML IV (16:26)
[2024-08-28] MEDS: 0.9% Normal Saline (1000mL) 1,000 ML 1000 ML IV (16:26)
[2024-08-28 16:30] LABS: Hematocrit 31.1 % (40-54); Hemoglobin 10.4 g/dL (13.0-16.5); Immature Granulocytes Count 0.060 X10^3/uL (0.0-0.0); Mean Corp Hgb Conc 33.4 g/dL (32-36); Mean Corpuscular Volume 86.1 fL (80-94); Mean Platelet Vol. 9.9 fl (6.2-12.0); NRBC Flagged by Analyzer 0 % (0-5); Platelet Count 357 K/mm3 (150-450); RBC Distribution Width CV 12.5 % (11.6-14.6); RBC Distribution Width SD 39.1 fl (35.1-43.9); Red Blood Count 3.61 M/mm3 (4.6-6.2); White Blood Count 11.9 K/mm3 (4.4-11.0)
--- NOTE | 2024-08-28 16:32 | RAD_ITS ---
PROCEDURE: RIGHT FOOT MIN 3 VIEWS 08/28/2024 REASON FOR EXAM: INFECTION, LARGE TOE TECHNIQUE: RIGHT FOOT MIN 3 VIEWS COMPARISON: None. FINDINGS: No acute fracture or dislocation. Osseous midfoot alignment is maintained, although with borderline pes planus deformity. Plantar calcaneal spurring. Somewhat ill-defined and irregular cortical margins along the anteromedial aspect of the 1st distal phalanx of the great toe, suspicious for osteomyelitis. No roxann cortical erosion/destruction. Preserved joint spaces. Qualitative osteopenia. Soft tissue swelling and subcutaneous gas at the distal aspect of the 1st toe, may reflect ulceration and/or infection with gas-forming organisms. No radiopaque foreign body. RAD/Foot min 3 Views IMPRESSION: 1. Soft tissue swelling and gas involving the 1st toe. 2. Ill-defined and irregular cortical margins along the anteromedial aspect of the right 1st distal phalanx, suspicious for associated osteomyelitis. Reading Location: [id number]
[2024-08-28 17:03] LABS: CRP 155.00 mg/L (0.0-3.0)
[2024-08-28 17:09] LABS: Anion Gap 15 (5-15); BUN 24 mg/dL (4-19); BUN/Creat Ratio 12.5 RATIO (10-20); Calcium,Total 9.0 mg/dL (7.6-11.0); Carbon Dioxide 21.8 mmol/L (21.0-32.0); Chloride 98 mmol/L (98-108); Estimated Creatinine Clearance 50.47 ml/min (50-250); Glucose 201 mg/dL (70-99); Potassium 4.0 mmol/L (3.3-5.1)
[2024-08-28] MEDS: Vancomycin HCl 2,000 MG in 0.9% Normal Saline (500mL Bag) 500 ML 250 MG IV (17:10)
--- NOTE | 2024-08-28 17:53 | PCA ---
CALLED [facility] @ [phone] AND LET THEM KNOW WE HAD THE PATIENT AND HE WAS GOING TO SURGERY
--- NOTE | 2024-08-28 17:59 | ART_ITS ---
Reason For Study Reason For Study: PVD Procedure A bilateral lower extremity continuous wave Doppler with analog waveform analysis,segmental pressures,and ankle brachial indexes without exercise. Left Segmental Pressures Left posterior tibial artery = 155mmHg. Left dorsalis pedis artery = >254mmHg. Left digit = 115 mmHg. The left posterior tibial artery waveforms are biphasic. The left dorsalis pedis waveforms are biphasic. Right Segmental Pressures Right brachial= 127mmHg. Right calf = 162mmHg. Right posterior tibial artery = 63mmHg. Right dorsalis pedis artery = 84mmHg. The right posterior tibial artery waveforms are monophasic. The right dorsalis pedis waveforms are biphasic. Indices The right ankle brachial index by the posterior tibial artery is 0.50. The right ankle brachial index by the dorsalis pedis is 0.66. The left ankle brachial index by the posterior tibial artery is 1.22. The left ankle brachial index by the dorsalis pedis is N/C. The left digital-brachial index is 0.91. VL/Lower Ext Art Exam w/o Exercis Interpretation Summary Right JOSSE 0.66, moderate arterial insufficiency. Doppler/PVR waveforms of the r ight leg normal at rest. Left JOSSE 1.22, normal. Doppler/PVR waveforms of the left leg mildly diminished infrapopliteal. TBI normal Ordering Physician: Meng Avelar Referring Physician: [facility] Performed By: Brice Barajas RVMiguel
--- NOTE | 2024-08-28 18:07 | PCM.CONS.GEN ---
Assessment & Plan Assessment/Plan (1) Cellulitis of right lower limb: (2) Gangrene, not elsewhere classified: (3) Acute osteomyelitis of toe of right foot: (4) Diabetes mellitus with diabetic polyneuropathy: (5) Other specified peripheral vascular diseases: PLAN: Plan Evaluation performed. Reviewed diagnostic findings. WBC elevated, ESR and CRP elevated, right foot xrays concerning for osteomyelitis right 1st toe, and there is noted gas in the tissues of the right 1st toe. Clinically there is dusky right 1st toe with gangrene developing and there is significant cellulitis to the foot. Reviewed findings, conditions and treatment options with patient. Given the findings especially with gas - debridement of all nonviable, infected and necrotic soft tissue and bone with 1st toe amputation was discussed with patient today. There is concern that if this is not completed this could spread, and it is uncertain how quick it could spread. Reviewed this with him in detail, and he elected to proceed with this procedure at this time. Patient has been NPO and will plan to proceed with this procedure at this time. Blood cultures have been obtained and pending. Patient will be admitted to hospital medicine. HPI Consult Data Date of Consult: 08/28/24 HPI Narrative Reason for Consultation: Right 1st toe infection HPI Narrative: OLIVER CRAMER, is a 59 M who presents with right 1st toe and foot infection. He relates he thinks it started last week, denies any known cause, but relates it has been worsening every day and now toe is not looking good, there is significant redness and swelling to his entire foot, infection appears to be spreading. He relates it started to drain today. He denies pain but seems like there is neuropathy. He has history of diabetes. Right foot xrays were obtained and there is suspicion for osteomyelitis and there was noted to be gas in the 1st toe soft tissues. I was consulted by the ER for further evaluation. Plan is for patient to be admitted to the hospital medicine team. FORMERLY [facility] Medical History (Updated 08/28/24 @ 18:17 by Lurdes Phillips) Redness of skin Rash Diabetes Easy bruising Stroke/cerebrovascular accident Diabetes mellitus HTN (hypertension) HLD (hyperlipidemia) CHF (congestive heart failure) Left ventricular systolic dysfunction (LVSD) Non-STEMI (non-ST elevated myocardial infarction) Acute CVA (cerebrovascular accident) Congestive heart failure Diabetes mellitus, type 2 Dyslipidemia Depression Anxiety Smoker Hypertension Home Medications ?Medication ?Instructions ?Recorded ?Last Taken ?Type fluticasone propionate 50 2 spray intranasal DAILY allergies 07/24/20 08/28/24 History mcg/actuation nasal spray,suspension gabapentin 300 mg capsule 300 mg PO TID neuropathy 07/24/20 08/28/24 History metformin 500 mg tablet 1,000 mg PO BIDCM diabetes 07/24/20 08/28/24 History trazodone 50 mg tablet 50 mg PO QHS sleep 07/24/20 08/27/24 History carvedilol 6.25 mg tablet 6.25 mg PO BID #60 tabs 07/26/20 08/28/24 Rx nitroglycerin 0.4 mg sublingual 0.4 mg sublingual Q5M PRN 07/26/20 Unknown Rx tablet Cardiac/Chest Pain #30 tabs spironolactone 25 mg tablet 25 mg PO DAILY #30 tabs 07/26/20 08/28/24 Rx aspirin 81 mg chewable tablet 81 mg PO BREAKFAST #30 tabs 12/09/21 08/28/24 Rx atorvastatin 80 mg tablet 80 mg PO QHS #30 tabs 12/09/21 08/27/24 Rx ciclopirox 8 % topical solution 1 applic topical DAILY 08/28/24 08/28/24 History (Ciclodan) empagliflozin 25 mg tablet 25 mg PO DAILY 08/28/24 08/28/24 History (Jardiance) hydrophilic cream 1 applic topical TID PRN dry skin 08/28/24 08/28/24 History omeprazole 20 mg capsule,delayed 20 mg PO DAILY 08/28/24 08/28/24 History release paroxetine HCl 30 mg tablet 30 mg PO DAILY 08/28/24 08/27/24 History sacubitril 97 mg-valsartan 103 mg 1 tab PO BID 08/28/24 08/28/24 History tablet (Entresto) Allergy/AdvReac Type Severity Reaction Status Date / Time No Known Allergies Allergy Verified 08/28/24 15:37 Family History (Updated 12/06/21 @ 17:[address] Kavon Mandel MD) Other Diabetes Heart disease Hypertension Social History Smoking Status: Current every day smoker tobacco type: cigarettes Physical Exam Const alert, oriented x3 and no apparent distress Constitutional Narrative: Right 1st toe significantly dusky and ischemic to most of the toe, there is some serous drainage from the proximal aspect of the toe, it is cool to touch, there is significant cellulitis to the right foot with edema, and there are patches of blistering to the dorsal 1st metatarsal. DP and PT pulses strong on handheld ultrasound doppler, right foot in ER at this time, CFT < 3 seconds to 2,3,4,5 toes right foot. No other areas of breakdown or duskiness to rest of right foot or to left foot. No open lesions, no cellulitis, no edema left foot. No POP or pain on ROM to foot or ankle bilateral. Sensation is diminished bilateral foot. There is some chronic contracture of all toes bilateral. Lab / Micro Data 08/28/24 16:05 08/28/24 16:05 Labs: Laboratory Results - last 24 hr 08/28/24 16:05: WBC 11.9 H, RBC 3.61 L, Hgb 10.4 L, Hct 31.1 L, MCV 86.1, MCH 28.8, MCHC 33.4, RDW Std Deviation 39.1, RDW Coeff of Prudence 12.5, Plt Count 357, MPV 9.9, Immature Gran % (Auto) 0.500, Neut % (Auto) 77.5 H, Lymph % (Auto) 13.4 L, Irion % (Auto) 7.6, Eos % (Auto) 0.6, Baso % (Auto) 0.4, Absolute Neuts (auto) 9.2 H, Absolute Lymphs (auto) 1.59, Nucleated RBC % 0, ESR 52 H, Sodium 134, Potassium 4.0, Chloride 98, Carbon Dioxide 21.8, Anion Gap 15, BUN 24 H, Creatinine 1.93 H, Estim Creat Clear Calc 50.47, Est GFR (MDRD) Non-Af 40 L, BUN/Creatinine Ratio 12.5, Glucose 201 H, Lactic Acid 1.3, Calcium 9.0, C-React Prot Ext Range 155.00 H Imaging Radiology Impression Foot X-Ray 08/28/24 16:32 IMPRESSION: 1. Soft tissue swelling and gas involving the 1st toe. 2. Ill-defined and irregular cortical margins along the anteromedial aspect of the right 1st distal phalanx, suspicious for associated osteomyelitis. Reading Location: [id number]
--- NOTE | 2024-08-28 18:21 | PAT.ANESEVAL ---
Pre-Assessment Diagnosis/Proposed Procedure Planned Operative Procedure(s): Amputation of the right first toe. Anesthesia History Anesthesia History - operations technician: Anesthesia History - operations technician Hx Hospitalization Any Problems With Anesthesia Cholinesterase deficiency You/Your Family Experience fever (hyperthermia) with Relationship Recent Exposure to Contagious Disease Does patient have nerve stimulator Patient instructed to have device shut off --Does patient have Pacemaker or ICD? When Was Last Pacemaker Check QUESTION #4 FULL TEXT: You/Your Family Experience fever (hyperthermia) with Anesthesia Last Oral Intake Last Oral intake: Last Oral Intake NPO since Meds taken in AM with sips of water? Meds patient instructed to take am of surgery PONV PONV - operations technician: PONV - operations technician Female HX of Motion Sickness HX of N/V After Surgery Non-Smoker Duration of Surgery greater than 60 minutes Number of Risk Factors PONV Score Height & Weight Height & Weight: Anesthesia: Height & Weight Height 6 ft 3 in 08/28/24 15:36 Weight: 98.248 kg 08/28/24 15:36 Body Mass Index (BMI) 27.1 08/28/24 15:36 Respiratory Assessment Respiratory Assessment - operations technician: Respiratory Tract Infection Hx - operations technician Hx Respiratory Tract Infection STOP Sleep Apnea STOP Sleep Apnea - operations technician: STOP Sleep Apnea - operations technician Hx Hypertension Yes 12/09/21 13:23 Hx Sleep Apnea No 12/06/21 18:17 CPAP BIPAP Do you snore loudly (louder than talking or can be heard Do you often feel tired/ fatigued/ sleepy during daytime? Has anyone observed you stop breathing during sleep? STOP Results QUESTION #5 FULL TEXT : Do you snore loudly (louder than talking or can be heard through closed doors)? 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 Specify any problems Hx of Preganancy in last 3 Months Nurse Filling Out Transfusion & Questions: Date: Time: Patient unable to answer at this time (ie. confused, unrespo /Reproduction History /Reproductive History - operations technician: /Reproductive Hx- operations technician Hx Now Gestational Age (in weeks): EDC: Hx Hx Para Hx Section SAB Active Medications Active Medications: Current Medications Generic Name Dose Route Start Last Admin Trade Name Freq PRN Reason Stop Dose Admin Vancomycin HCl 2,000 mg/ 540 mls @ 250 mls/hr 08/28/24 16:30 08/28/24 17:10 Sodium Chloride IV 08/28/24 18:39 250 mls/hr X1 ONE Administration [facility] Medical History (Updated 08/28/24 @ 18:17 by Lurdes Phillips) Redness of skin Rash Diabetes Easy bruising Stroke/cerebrovascular accident Diabetes mellitus HTN (hypertension) HLD (hyperlipidemia) CHF (congestive heart failure) Left ventricular systolic dysfunction (LVSD) Non-STEMI (non-ST elevated myocardial infarction) Acute CVA (cerebrovascular accident) Congestive heart failure Diabetes mellitus, type 2 Dyslipidemia Depression Anxiety Smoker Hypertension Home Medications ?Medication ?Instructions ?Recorded ?Last Taken ?Type fluticasone propionate 50 2 spray intranasal DAILY allergies 07/24/20 08/28/24 History mcg/actuation nasal spray,suspension gabapentin 300 mg capsule 300 mg PO TID neuropathy 07/24/20 08/28/24 History metformin 500 mg tablet 1,000 mg PO BIDCM diabetes 07/24/20 08/28/24 History trazodone 50 mg tablet 50 mg PO QHS sleep 07/24/20 08/27/24 History carvedilol 6.25 mg tablet 6.25 mg PO BID #60 tabs 07/26/20 08/28/24 Rx nitroglycerin 0.4 mg sublingual 0.4 mg sublingual Q5M PRN 07/26/20 Unknown Rx tablet Cardiac/Chest Pain #30 tabs spironolactone 25 mg tablet 25 mg PO DAILY #30 tabs 07/26/20 08/28/24 Rx aspirin 81 mg chewable tablet 81 mg PO BREAKFAST #30 tabs 12/09/21 08/28/24 Rx atorvastatin 80 mg tablet 80 mg PO QHS #30 tabs 12/09/21 08/27/24 Rx ciclopirox 8 % topical solution 1 applic topical DAILY 08/28/24 08/28/24 History (Ciclodan) empagliflozin 25 mg tablet 25 mg PO DAILY 08/28/24 08/28/24 History (Jardiance) hydrophilic cream 1 applic topical TID PRN dry skin 08/28/24 08/28/24 History omeprazole 20 mg capsule,delayed 20 mg PO DAILY 08/28/24 08/28/24 History release paroxetine HCl 30 mg tablet 30 mg PO DAILY 08/28/24 08/27/24 History sacubitril 97 mg-valsartan 103 mg 1 tab PO BID 08/28/24 08/28/24 History tablet (Entresto) Allergy/AdvReac Type Severity Reaction Status Date / Time No Known Allergies Allergy Verified 08/28/24 15:37 Family History (Updated 12/06/21 @ 17:[address] Kavon Mandel MD) Other Diabetes Heart disease Hypertension Social History Smoking Status: Current every day smoker tobacco type: cigarettes Audit: Pertinent Findings Pertinent Findings EKG Perinent findings: 12/06/2021. Normal sinus rhythm. Left atrial enlargement. LVH with repolarization abnormality versus myocardial ischemia. Echo (EF%) pertinent findings: 12/08/2021. EF of 50%. PASP is 35 mmHg. No aortic stenosis noted. Current Visit Impressions Current Visit Impressions: Clinical Impression(s) from Imaging Studies Foot X-Ray 08/28/24 16:32 IMPRESSION: 1. Soft tissue swelling and gas involving the 1st toe. 2. Ill-defined and irregular cortical margins along the anteromedial aspect of the right 1st distal phalanx, suspicious for associated osteomyelitis. Reading Location: [id number] Recommendation Anesthesia Recommendation Anesthesia recommendation: OPTIMIZED for anesthesia
--- NOTE | 2024-08-28 18:45 | AMP_PTH ---
PATIENT: OLIVER CRAMER II LOC: MS3 U#:[id number] AGE/SX: 59/M ROOM: [facility] RE08/28/[address]: Dr. Meng Avelar DPM : 1965 BED: 1 DIS: 09/01/2024 SPEC #: [id number] RECD: 08/29/24 08:00 STATUS: RANGEL SALOMON #: [id number] GLORY: 08/28/24 18:[address]: Meng Avelar DEPT: SURGICAL PATHOLOGY RECD BY: Emerson Truong ENTERED: 08/29/24 10:57 SP TYPE: Amputation OTHR DR: MD Dr. Wesley Oscar DO Dr. Paige Pierce, MD Dr. Robert Leininger, MD [facility] Tissues: A - Toe, NOS B - Toe, NOS Procedures: Decalcification bone/plaque Surgery Specimen Level IV HEADER OPERATION: Debridement of all nonviable, necrotic and infected soft tissue PRE-OP DIAGNOSIS: Cellulitis of right lower limb, gangrene, not elsewhere classified, acute osteomyelitis of toe of right foot, diabetes mellitus with diabetic polyneuropathy, other specified peripheral vascular diseases TISSUE SUBMITTED: A- Clearance fragment right first, B- Amputated right first toe MICROSCOPIC DIAGNOSIS A. Toe, right, first, clearance fragment, debridement: - Articular bone with acute inflammation consistent with osteomyelitis. B. Toe, right, first, amputation: - Necrotic toe. MICROSCOPIC DESCRIPTION Slides are reviewed. GROSS DESCRIPTION Received in 2 formalin containers labeled with the patient's name and date of . Designated as: A. Clearance fragment right first toe is a 1.5 x 1.4 x 0.4 cm burton-yellow, somewhat shaggy and irregular bone fragment. Entirely submitted in 1 cassette, following decalcification. B. Amputated right first toe is a 4.3 x 3.5 x 3.3 cm distal digit anteriorly surfaced by a thickened nail. The skin ranges from burton and wrinkled to pink-purple and focally sloughing; there is a 0.9 x 0.5 cm irregular, full-thickness defect at the distal tip. Also received within the container are 2 irregular bone fragments, each of which are surfaced by articular cartilage, 1.4 x 0.6 x 0.5 cm and 2.1 x 1.1 x 0.7 cm. Sectioning reveals burton-yellow to red-swann soft tissue cut surfaces and burton-yellow to red, somewhat brittle medullary bone. Color Repairer sections are submitted in 2 cassettes, following decalcification as follows: B1: DigitB2: Bone fragments WI 08/29/2024 CPT:89640,[id number]
--- NOTE | 2024-08-28 18:49 | PCM.PRE.AN2 ---
ASA Classification* ASA Classification ASA Classification: 3 and E Assessment & Plan Anesthesia* Anesthesia Assessment Anesthesia Assessment: Discussed sedation and/or anesthesia options, risks, benefits, and alternatives with patient/parents/legal guardian/POA. Questions invited. The patient/parents/legal guardian/POA seems to understand and agrees to proceed with anesthesia plan. Reviewed the physical assessment, medical history, allergy history and patient home medications list prior to surgery/procedure/anesthetic and documented any changes. Performed airway and anesthesia risk assessments. Anesthesia Type Anesthesia Type: MAC History Source History Obtained from:: Patient and Chart Anesthesia Focused Assessment* Temperature: 97.3 F Pulse Rate: 62 Blood Pressure: 134/73 Respiratory Rate: 18 Pulse Ox: 97 Oxygen Delivery Method: Room Air Airway Assessment Mouth opens: >3 cm Mallampati Score: III Teeth Condition: Partial (Patient has partial on top. It will stay in.) Neck Range of motion (ROM): Limited ROM (Somewhat Decreased) Labs Anesthesia Preop lab: CBC WBC 11.9 K/mm3 (4.4-11.0) H 08/28/24 16:05 08/28/24 RBC 3.61 M/mm3 (4.6-6.2) L 08/28/24 16:05 08/28/24 Hgb 10.4 g/dL (13.0-16.5) L 08/28/24 16:05 08/28/24 Hct 31.1 % (40-54) L 08/28/24 16:05 08/28/24 Plt Count 357 K/mm3 (150-450) 08/28/24 16:05 08/28/24 CHEMISTRY Potassium 4.0 mmol/L (3.3-5.1) 08/28/24 16:05 08/28/24 Sodium 134 mmol/L (133-145) 08/28/24 16:05 08/28/24 Magnesium 1.9 mg/dL (1.6-2.6) 12/08/21 01:55 12/08/21 Phosphorus 2.8 mg/dL (2.5-4.9) 12/08/21 01:55 12/08/21 BUN 24 mg/dL (4-19) H 08/28/24 16:05 08/28/24 Creatinine 1.93 mg/dL (0.70-1.20) H 08/28/24 16:05 08/28/24 Glucose 201 mg/dL (70-99) H 08/28/24 16:05 08/28/24 POC Glucose 153 mg/dL (74-106) H 12/09/21 06:30 12/09/21 TSH 0.82 uIU/mL (0.358-3.74) 07/25/20 05:22 07/25/20 COAG PT 12.6 SECONDS (11.7-14.9) 12/06/21 14:05 12/06/21 Pre-Assessment Diagnosis/Proposed Procedure Planned Operative Procedure(s): Amputation of the right first toe. Anesthesia History Anesthesia History - slack line yarder: Anesthesia History - slack line yarder Hx Hospitalization Any Problems With Anesthesia Cholinesterase deficiency You/Your Family Experience fever (hyperthermia) with Relationship Recent Exposure to Contagious Disease Does patient have nerve stimulator Patient instructed to have device shut off --Does patient have Pacemaker or ICD? When Was Last Pacemaker Check QUESTION #4 FULL TEXT: You/Your Family Experience fever (hyperthermia) with Anesthesia Last Oral Intake Last Oral intake: Last Oral Intake NPO since Meds taken in AM with sips of water? Meds patient instructed to take am of surgery Any additional information?: Yes NPO since: 00:00 Meds taken in AM with sips of water?: Yes PONV PONV - slack line yarder: PONV - slack line yarder Female HX of Motion Sickness HX of N/V After Surgery Non-Smoker Duration of Surgery greater than 60 minutes Number of Risk Factors PONV Score Height & Weight Height & Weight: Anesthesia: Height & Weight Height 6 ft 3 in 08/28/24 15:36 Weight: 98.248 kg 08/28/24 15:36 Body Mass Index (BMI) 27.1 08/28/24 15:36 Respiratory Assessment Respiratory Assessment - slack line yarder: Respiratory Tract Infection Hx - slack line yarder Hx Respiratory Tract Infection Any additional information?: Yes Hx Respiratory Tract Infection: No STOP Sleep Apnea STOP Sleep Apnea - slack line yarder: STOP Sleep Apnea - slack line yarder Hx Hypertension Yes 12/09/21 13:23 Hx Sleep Apnea No 12/06/21 18:17 CPAP BIPAP Do you snore loudly (louder than talking or can be heard Do you often feel tired/ fatigued/ sleepy during daytime? Has anyone observed you stop breathing during sleep? STOP Results QUESTION #5 FULL TEXT : Do you snore loudly (louder than talking or can be heard through closed doors)? 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 Specify any problems Hx of Preganancy in last 3 Months Nurse Filling Out Transfusion & Questions: Date: Time: Patient unable to answer at this time (ie. confused, unrespo /Reproduction History /Reproductive History - slack line yarder: /Reproductive Hx- slack line yarder Hx Now Gestational Age (in weeks): EDC: Hx Hx Para Hx Section SAB [facility] Medical History Redness of skin Rash Diabetes Easy bruising Stroke/cerebrovascular accident Diabetes mellitus HTN (hypertension) HLD (hyperlipidemia) CHF (congestive heart failure) Left ventricular systolic dysfunction (LVSD) Non-STEMI (non-ST elevated myocardial infarction) Acute CVA (cerebrovascular accident) Congestive heart failure Diabetes mellitus, type 2 Dyslipidemia Depression Anxiety Smoker Hypertension Home Medications ?Medication ?Instructions ?Recorded ?Last Taken ?Type fluticasone propionate 50 2 spray intranasal DAILY allergies 07/24/20 08/28/24 History mcg/actuation nasal spray,suspension gabapentin 300 mg capsule 300 mg PO TID neuropathy 07/24/20 08/28/24 History metformin 500 mg tablet 1,000 mg PO BIDCM diabetes 07/24/20 08/28/24 History trazodone 50 mg tablet 50 mg PO QHS sleep 07/24/20 08/27/24 History carvedilol 6.25 mg tablet 6.25 mg PO BID #60 tabs 07/26/20 08/28/24 Rx nitroglycerin 0.4 mg sublingual 0.4 mg sublingual Q5M PRN 07/26/20 Unknown Rx tablet Cardiac/Chest Pain #30 tabs spironolactone 25 mg tablet 25 mg PO DAILY #30 tabs 07/26/20 08/28/24 Rx aspirin 81 mg chewable tablet 81 mg PO BREAKFAST #30 tabs 12/09/21 08/28/24 Rx atorvastatin 80 mg tablet 80 mg PO QHS #30 tabs 12/09/21 08/27/24 Rx ciclopirox 8 % topical solution 1 applic topical DAILY 08/28/24 08/28/24 History (Ciclodan) empagliflozin 25 mg tablet 25 mg PO DAILY 08/28/24 08/28/24 History (Jardiance) hydrophilic cream 1 applic topical TID PRN dry skin 08/28/24 08/28/24 History omeprazole 20 mg capsule,delayed 20 mg PO DAILY 08/28/24 08/28/24 History release paroxetine HCl 30 mg tablet 30 mg PO DAILY 08/28/24 08/27/24 History sacubitril 97 mg-valsartan 103 mg 1 tab PO BID 08/28/24 08/28/24 History tablet (Entresto) Allergy/AdvReac Type Severity Reaction Status Date / Time No Known Allergies Allergy Verified 08/28/24 15:37 Family History Other Diabetes Heart disease Hypertension Social History Smoking Status: Current every day smoker tobacco type: cigarettes Review of Systems (Anesthesia) ROS Narrative System reviewed and no additional complaints, except as documented.
--- NOTE | 2024-08-28 18:50 | HP.PCM.HOS_ITS ---
HPI - General General Date of Admission: 08/28/24 Date of Service: 08/28/24 Chief Complaint: Right toe pain, erythema, swelling HPI Narrative OLIVER CRAMER, is a 59 M who presents [facility] Medical History (Updated 08/28/24 @ 18:17 by Lurdes Phillips) Acute CVA (cerebrovascular accident) Anxiety CHF (congestive heart failure) Congestive heart failure Depression Diabetes Diabetes mellitus Diabetes mellitus, type 2 Dyslipidemia Easy bruising HLD (hyperlipidemia) HTN (hypertension) Hypertension Left ventricular systolic dysfunction (LVSD) Non-STEMI (non-ST elevated myocardial infarction) Rash Redness of skin Smoker Stroke/cerebrovascular accident Home Medications ?Medication ?Instructions ?Recorded ?Last Taken ?Type fluticasone propionate 50 2 spray intranasal DAILY all ergies 07/24/20 08/28/24 History mcg/actuation nasal spray,suspension gabapentin 300 mg capsule 300 mg PO TID neuropathy 08/28/24 History metformin 500 mg tablet 1,000 mg PO BIDCM diabetes 0 07/24/20 08/28/24 History trazodone 50 mg tablet 50 mg PO QHS sleep 07/24/20 08/27/24 History carvedilol 6.25 mg tablet 6.25 mg PO BID #60 tabs 07/0908/28/24 Rx nitroglycerin 0.4 mg sublingual 0.4 mg sublingual Q5M PRN 07/26/20 Unknown Rx tablet Cardiac/Chest Pain #30 tabs spironolactone 25 mg tablet 25 mg PO DAILY #30 tabs 08/28/24 Rx aspirin 81 mg chewable tablet 81 mg PO BREAKFAST #30 t abs 12/09/21 08/28/24 Rx atorvastatin 80 mg tablet 80 mg PO QHS #30 tabs
--- NOTE | 2024-08-28 18:50 | PCM.HP.STD ---
HPI - General General Date of Admission: 08/28/24 Date of Service: 08/28/24 Chief Complaint: Right toe pain, erythema, swelling HPI Narrative OLIVER CRAMER, is a 59-year-old male history of diabetes, hypertension, CAD, CHF presented [facility] ED 08/28/2024 for increasing pain, swelling, erythema of first toe on right foot. No injury that he knows of but this started over the past couple days and significantly worsened today prompting him to come to the ED. In the ED temp 98.4, pulse rate 67. Blood pressure 145/88 and respiratory rate 16 and pulse ox 100% on room air. White blood cell count 11.9 and a hemoglobin of 10.4. Lactic acid 1.3 but CRP 155 and ESR 52. BMP showed a BUN of 24 and a creatinine of 1.93 but no recent values available. Foot x-ray showed soft tissue swelling and gas involving first toe and ill-defined and irregular cortical margins along the anterior medial aspect of the right first distal phalanx suspicious for associated osteomyelitis. Podiatry contacted and evaluated patient in the ED, plan to take patient to surgery. Hospitalist contacted for admission with podiatry consult. Patient evaluated with family member at bedside. Patient endorses history as above. Continues to have pain at an 8 out of 10 and has had progression of the erythema, pain, discoloration since last night. Aside from the above complaints ROS otherwise negative [facility] Medical History Redness of skin Rash Diabetes Easy bruising Stroke/cerebrovascular accident Diabetes mellitus HTN (hypertension) HLD (hyperlipidemia) CHF (congestive heart failure) Left ventricular systolic dysfunction (LVSD) Non-STEMI (non-ST elevated myocardial infarction) Acute CVA (cerebrovascular accident) Congestive heart failure Diabetes mellitus, type 2 Dyslipidemia Depression Anxiety Smoker Hypertension Home Medications ?Medication ?Instructions ?Recorded ?Last Taken ?Type fluticasone propionate 50 2 spray intranasal DAILY allergies 07/24/20 08/28/24 History mcg/actuation nasal spray,suspension gabapentin 300 mg capsule 300 mg PO TID neuropathy 07/24/20 08/28/24 History metformin 500 mg tablet 1,000 mg PO BIDCM diabetes 07/24/20 08/28/24 History trazodone 50 mg tablet 50 mg PO QHS sleep 07/24/20 08/27/24 History carvedilol 6.25 mg tablet 6.25 mg PO BID #60 tabs 07/26/20 08/28/24 Rx nitroglycerin 0.4 mg sublingual 0.4 mg sublingual Q5M PRN 07/26/20 Unknown Rx tablet Cardiac/Chest Pain #30 tabs spironolactone 25 mg tablet 25 mg PO DAILY #30 tabs 07/26/20 08/28/24 Rx aspirin 81 mg chewable tablet 81 mg PO BREAKFAST #30 tabs 12/09/21 08/28/24 Rx atorvastatin 80 mg tablet 80 mg PO QHS #30 tabs 12/09/21 08/27/24 Rx ciclopirox 8 % topical solution 1 applic topical DAILY 08/28/24 08/28/24 History (Ciclodan) empagliflozin 25 mg tablet 25 mg PO DAILY 08/28/24 08/28/24 History (Jardiance) hydrophilic cream 1 applic topical TID PRN dry skin 08/28/24 08/28/24 History omeprazole 20 mg capsule,delayed 20 mg PO DAILY 08/28/24 08/28/24 History release paroxetine HCl 30 mg tablet 30 mg PO DAILY 08/28/24 08/27/24 History sacubitril 97 mg-valsartan 103 mg 1 tab PO BID 08/28/24 08/28/24 History tablet (Entresto) Allergy/AdvReac Type Severity Reaction Status Date / Time No Known Allergies Allergy Verified 08/28/24 15:37 Family History Other Diabetes Heart disease Hypertension Social History Smoking Status: Current every day smoker (Patient smoked today.) tobacco type: cigarettes ROS ROS Narrative General: Denies fever/chills HENT: Denies headache, denies stuffy nose, denies sore throat EYES: Denies changes in vision Resp: Denies cough, denies shortness of breath Cardiac: Denies chest pain GI: Denies abdominal pain, denies changes in bowel, denies nausea/vomiting : Denies changes in urination Extremity: Some swelling in right great toe MSK: Denies weakness Neuro: Has some chronic peripheral neuropathy Heme: Denies any bleeding or bruising Skin: Swelling, erythema, pain in great toe tracking up leg Psychiatric: No complaints voiced Vital Signs Vital Signs Vital Signs: 08/28/24 15:36 08/28/24 16:41 08/28/24 17:00 Temperature 98.4 F 98.4 F 98.6 F Temperature Source Oral Oral Temporal Pulse Rate 67 59 L 58 L Respiratory Rate 16 18 17 Blood Pressure 145/88 H 137/70 H 146/70 H Blood Pressure Mean 107 92 95 Pulse Ox 100 97 99 Oxygen Delivery Method Room Air Room Air 08/28/24 17:58 08/28/24 18:11 Temperature 97.3 F L Temperature Source Temporal Pulse Rate 87 62 Respiratory Rate 18 18 Blood Pressure 145/76 H 134/73 H Blood Pressure Mean 99 93 Pulse Ox 98 97 Oxygen Delivery Method Weight Weight: 98.248 kg Body Mass Index (BMI) 27.1 Physical Exam Narrative General: Alert, oriented, no apparent distress HEENT: Atraumatic, normocephalic Eyes: Anicteric, normal conjunctiva, extraocular movements grossly intact Neck: Supple Respiratory: Clear to auscultation bilaterally, normal respiratory effort Cardiovascular: Regular rate and rhythm GI: Soft, nontender, nondistended Extremities: No pitting edema Musculoskeletal: Moving all extremities Neuro: No overt focal neurological deficits Skin: Discoloration of right great toe tracking onto top of foot with erythema of foot beginning to go up leg Psych: Cooperative Results Lab / Micro Data 08/28/24 16:05 08/28/24 16:05 Labs: Laboratory Results - last 24 hr 08/28/24 16:05: WBC 11.9 H, RBC 3.61 L, Hgb 10.4 L, Hct 31.1 L, MCV 86.1, MCH 28.8, MCHC 33.4, RDW Std Deviation 39.1, RDW Coeff of Prudence 12.5, Plt Count 357, MPV 9.9, Immature Gran % (Auto) 0.500, Neut % (Auto) 77.5 H, Lymph % (Auto) 13.4 L, Burnet % (Auto) 7.6, Eos % (Auto) 0.6, Baso % (Auto) 0.4, Absolute Neuts (auto) 9.2 H, Absolute Lymphs (auto) 1.59, Nucleated RBC % 0, ESR 52 H, Sodium 134, Potassium 4.0, Chloride 98, Carbon Dioxide 21.8, Anion Gap 15, BUN 24 H, Creatinine 1.93 H, Estim Creat Clear Calc 50.47, Est GFR (MDRD) Non-Af 40 L, BUN/Creatinine Ratio 12.5, Glucose 201 H, Lactic Acid 1.3, Calcium 9.0, C-React Prot Ext Range 155.00 H Imaging Radiology Impression Foot X-Ray 08/28/24 16:32 IMPRESSION: 1. Soft tissue swelling and gas involving the 1st toe. 2. Ill-defined and irregular cortical margins along the anteromedial aspect of the right 1st distal phalanx, suspicious for associated osteomyelitis. Reading Location: [id number] Assessment & Plan Assessment/Plan (1) Acute osteomyelitis of toe of right foot: PLAN: Plan # Acute osteomyelitis of right great toe -Foot x-ray showed soft tissue swelling and gas involving first toe and ill-defined and irregular cortical margins along the anterior medial aspect of the right first distal phalanx suspicious for associated osteomyelitis - Additionally CRP 155 and ESR 52, repeat in the a.m. -Patient to go from the ED to the OR -IV antibiotics, will continue vancomycin and Zosyn and add clinda given the gas on imaging -Will follow cultures -Consult ID -Podiatry - Pain management/supportive care -PT consult -Wound management consult #Type 2 diabetes mellitus -Glucose checks and sliding scale insulin #Hypertension - Patient going to OR, resume Coreg at lower dose in the a.m. and Entresto in the a.m., can uptitrate as tolerated # SHERITA versus CKD stage III b - Unclear baseline with no recent labs available but this may be underlying CKD -Avoid nephrotoxic agents -Daily BMPs -Can consider further workup if any additional concerns arise # History of heart failure -Based on documentation -Last echo with mild global hypokinesis -Daily weights, I's and O's - Continue Coreg at decreased dose until assessing blood pressure tolerability - Resume Entresto tomorrow morning with holding parameters - Hold spironolactone #Tobacco use -Advise cessation -Nicotine replacement available if desired # History of CVA and CAD -Home aspirin and statin #Depression/anxiety -Continue home medications #GERD -Continue PPI #DVT ppx: Timing and agent at discretion of surgeon Alecia Pérez MD Charges/Coding Visit Charges Inpatient E&M: 10220 Init Hosp L2
--- NOTE | 2024-08-28 20:05 | PCM.OPRPT ---
Operative Report (Standard) Operative Information Date of Procedure: 08/28/24 Pre-Operative Diagnosis: Osteomyelitis right 1st toe with gas gangrene Post-Operative Diagnosis: Same Surgery/Procedure Performed: Partial right 1st toe amputation academic records specialist: No Type of Anesthesia: Local MAC RN Documented Start/Stop Times: Operation Date: 08/28/24 18:45 Case Time Anesthesia Start 08/28/24 19:19 Into Room 08/28/24 19:19 Procedure Start 08/28/24 19:31 Procedure End 08/28/24 19:56 Anesthesia End 08/28/24 20:04 Out of Room 08/28/24 20:04 Into Recovery 08/28/24 20:06 Out of Recovery 08/28/24 20:20 Procedure Start Time: 19:31 Procedure Stop Time: 19:56 Select all DRAINS/GRAFTS/IMPLANTS that apply: None Estimated Blood Loss: < 1 mL Specimen collected: Yes Description of specimen(s) removed: 1. Amputated right 1st toe - sent to pathology 2. Bone from right 1st toe distal phalanx - sent to microbiology 3. Clearance fragment right 1st toe proximal phalanx - sent to pathology and microbiology Description of surgery: Indications: 59 year old gentleman presented with right 1st toe infection extending into foot. There was noted to be dusky right 1st toe, and here was drainage present, also WBC, ESR and CRP were elevated with xray changes consistent with osteomyelitis to the 1st toe as well as gas to the distal phalanx. There were ischemic changes to the 1st toe and also patches of dusky blistering to dorsal 1st ray of the right foot. Patient has history of diabetes, also peripheral neuropathy, also smokes tobacco. Discussed options with him and he elected to proceed with debridement and amputation of right 1st toe amputation. This was discussed with him in detail. Discussed possible benefits vs risks, goals, expectations as well. Advised the patient the risks include but not limited to further infection, pain, drainage, nonhealing, delayed healing, need for further surgery, blood clots, loss of function, deformity, loss of limb, loss of life. He expressed understanding and agreement. Alternative options were given (just antibiotics alone, wound care, further vascular workup, or no treatment at all). He was given multiple opportunities to ask questions and all of his questions were answered to his satisfaction. The consent form was reviewed with him and he freely signed it. No guarantees or warranties were given nor implied. He also was advised to quit tobacco - reviewed rationale of this with him. Also discussed with him he will need further vascular workup this admission either way. Operative Procedure: The patient was brought back to the operating room and was placed on the operating room table in the supine position, carefully secured to the operating room table with a safety belt. The patient was already on IV antibiotic therapy per the ER, and hospital medicine did see patient pre operatively as well. A well padded pneumatic tourniquet was applied around the patient's right ankle but was never inflated. The patient received MAC anesthesia per the anesthesiology team. The skin of the right foot 1st ray was cleansed using 70% Isopropyl alcohol and then a nerve block was completed to the site using total of 10mL of 0.5% Bupivacaine plain. The patient's right foot was scrubbed, prepped, and draped in the usual aseptic fashion. Further attention was directed to the patient's right foot and findings consistent with infection to the right 1st toe with cellulitis extending to the dorsal foot, also the 1st toe was dusky especially distally. A timeout of performed and the patient was properly identified and the surgical plan was confirmed. Right 1st toe partial amputation: A incision was made around the interphalangeal joint of the toe using a 15 blade creating a flap for possible closure. The incision was extended down to bone and the toe was disarticulated at the interphalangeal joint. The bone of the distal phalanx was noted to be ischemic, soft eroded, necrotic, and nonviable consistent with infection. The bone of the proximal phalanx of the toe was noted to be hard, white and did not appear infected looking. The head of the proximal phalanx was excised using a bone cutting forceps and a clearance fragment was obtained from the proximal phalanx and sent to microbiology and pathology. The remaining tissues were noted to be viable at the site but there was no bleeding consistent with significant peripheral vascular disease. A doppler was used and DP and PT pulses were intact intra operatively. A bone culture was obtained and the distal phalanx using a bone cutting rongeur and was sent to microbiology as a bone culture. The amputated part of the toe was sent to pathology. The site was flushed with copious amounts of normal saline solution. The site was left open. The patches of duskiness to the dorsal 1st ray were left alone - appears there are more related to peripheral arterial disease rather than from infection at this point. A dressing was applied which consisted of normal wet to dry saline solution gauze dressing in noncompressive manner. The patient tolerated the procedure well and anesthesia well with no complications. He was transported from the operating room to the recovery room with vital signs stable and in good condition. The patient will be followed as an inpatient. Vascular surgery - Dr. Reina was consulted. The details of the procedure were discussed with patient post operatively, as well as with Elsy (with patient's permission) patient's significant other. Surgical Findings: As noted above Complications Complications: No
--- NOTE | 2024-08-28 20:09 | PCM.POST.ANE ---
Anesthesia: Postop Eval I Current Vital Signs Temperature: 97.2 F Pulse Rate: 60 Blood Pressure: 101/60 Respiratory Rate: 16 Pulse Ox: 97 Oxygen Delivery Method: Room Air Assessment Airway patent: Yes Spontaneous unlabored respirations: Yes Mental status: Awake and Calm nausea: No Vomiting: No Anesthesia Complication: No Fluid Hydration Crystalloid volume administer (ml): 200 Total IV fluid infused: 200 Progress Note Anesthesia document: Postop Eval 1 completed: Yes
--- NOTE | 2024-08-28 20:26 | PCM.POSTANE2 ---
Anesthesia Postop Eval I Sum Postop Eval Completion status Anesthesia document: Postop Eval 1 completed: Yes Anesthesia Postop Eval I Summary Anesthesia Postop Eval I Summary: Anesthesia Postop Eval I: Assessment Summary Airway patent Yes 08/28/24 20:11 Spontaneous unlabored Yes 08/28/24 20:11 respirations Mental status Awake,Calm 08/28/24 20:11 nausea No 08/28/24 20:11 Vomiting No 08/28/24 20:11 Anesthesia Postop Eval I: Fluid Summary Crystalloid volume administer 200 08/28/24 20:11 (ml) Colloids volume administered ( ml) Blood Product volume administered (ml) Total IV fluid infused 200 08/28/24 20:11 Anesthesia Postop Eval I: Summary Notes Anesthesia Complication No 08/28/24 20:11 Anesthesia Complication Comment: Post-operative progress note Anesthesia: Postop Eval II Evaluation Mental status: Awake and Calm Pain Level: 1 nausea: No Vomiting: No Complications Anesthesia Complication: No
--- NOTE | 2024-08-28 20:47 | RAD_ITS ---
PROCEDURE: FOOT MIN 3 VIEWS 08/28/2024 REASON FOR EXAM: POST OP TECHNIQUE: FOOT MIN 3 VIEWS COMPARISON: Right foot radiographs 08/28/2024 FINDINGS: Overlying bandage limits detailed bone and soft tissue evaluation. Interval postoperative changes from amputation at the head of the 1st proximal phalanx. There is swelling and irregularity in the overlying soft tissues, likely postoperative. No radiopaque foreign body. Subjective osteopenia diffusely. Plantar heel spur. Vascular calcifications in the soft tissues. RAD/Foot min 3 Views IMPRESSION: Postoperative changes from amputation at the proximal phalanx of the great toe. Reading Location: [facility]
--- NOTE | 2024-08-28 20:51 | PCM.RX.CS ---
Consult Antibiotic Management Pharmacy has been consulted to manage selected antibiotic: Vancomycin Type of Intervention Type of Consult: Suspected Infection Suspected Infection: Osteomyelitis Labs Labs: Sodium 134 mmol/L (133-145) 08/28/24 16:05 Potassium 4.0 mmol/L (3.3-5.1) 08/28/24 16:05 Chloride 98 mmol/L (98-108) 08/28/24 16:05 Carbon Dioxide 21.8 mmol/L (21.0-32.0) 08/28/24 16:05 Anion Gap 15 (5-15) 08/28/24 16:05 BUN 24 mg/dL (4-19) H 08/28/24 16:05 Creatinine 1.93 mg/dL (0.70-1.20) H 08/28/24 16:05 Est GFR (MDRD) Non-Af 40 (>60) L 08/28/24 16:05 BUN/Creatinine Ratio 12.5 RATIO (10-20) 08/28/24 16:05 Glucose 201 mg/dL (70-99) H 08/28/24 16:05 Goal Trough Goal Trough: 15-20 mcg/mL Pharmacy Plan for Drug Dosing Pharmacy Plan for Drug Dosing: IV VANCOMYCIN Consulting Physician: Dr. Pérez Indication: Foot osteomyelitis Goal Trough: 15-20 SrCr: 1.93 CrCl: 50 mL/min Comments: Patient had initial 2g vanco IV x1 in ED 08/28 @1710 Vancomycin Dose: 1000mg IV Q12hr to start 08/29/24 @0500 Pending Level: 08/30/24 @0430, prior to 4th total dose of vanco per protocol Pharmacy Service will continue to monitor and adjust dosing as required.
[2024-08-28] MEDS: 0.9% Saline Lock 10 ML Syringe IV (21:20)
--- OUTSIDE RECORDS SUMMARY | 2024-08-28 21:24 | XMS RPT_ITS | CCD ---
Author Organization [facility] Care Team Providers Care Coding Clerk Name Role Phone [place] Primary Care Provider UnavailDr. Beto Mackay Emergency Provider Dr. Kavon Mandel Admit Provider Dr. Kavon Mandel Attending Provider Dr. Kavon Mandel Other Provider JESUS AGUILA Referring Unavailable RABIA BELTRE Attending Unavailable RABIA BELTRE Admitting Unavailable Dr. Beto Kay Attending Provider Dr. Beto Kay Other Provider Dr. Jesus Aguila Attending Provider Dr. Jesus Aguila Other Provider Dr. Wilfredo Chapman Attending Provider [facility], [place] Primary Care Unavailable Wilfredo Chapman Attending Unavailable Beto Kay Consulting Unavailable [facility] Primary [place] Unavailable Beto Kay Attending Unavailable Kavon Mandel Admitting Unavailable Kavon Mandel Consulting Unavailable Jesus Aguila Consulting Unavailable Jesus Aguila Attending Unavailable Kavon Mandel Attending Unavailable Jesus Aguila Attending Unavailable Beto Kay Consulting Unavailable Kavon Mandel Admitting Un[place] [facility] Primary [place] Unavailable Kavon Mandel Consulting [place] [facility] Unavailable Beto Kay Attending Unavailable [facility], [facility] Primary Care Physician [facility], [facility] Primary Care Unavailable VANESSA KO MD Consulting Unavailable ALBERTO DRISCOLL MD, DR KHAN Admitting Unav yue DRISCOLL MD, DR KHAN Attending Unav sarojable ALBERTO DRISCOLL MD, DR KHAN Consulting Unav yue DORSEY MD, TAMMY Consulting Unavailable CHAPARRITA WOOD MD, DR CINDA JAMES Consulting Unavaila morgan RICH MD, MARY Consulting Unavailable SAURABH URBAN, DEXTER Consulting Unavailable BRAYDEN URBAN, WINDY Consulting Unavailable KARRIE URBAN, NANCIE Kaur Consulting Unavailable [facility], [facility] Primary Care Unavailable VANESSA KO MD Attending Unavailable [facility] Primary Care Unavailable VANESSA KO MD Attending Unavailable [facility] Primary Care Unavailable DANIEL CHANDLER Attending [place], [place] [facility] RESTREPO, Dr. Blair Emergency Provider Rosio CARVALHO, Dr. Fan Attending Provider [phone] Nuno URBAN, Dr. Aguiar Other Provider Beto URBAN, Dr. Alston Admit Provider [phone] Medications Current Medications Medication Drug Class(es) Dates Sig (Normalized) Sig (Original) acetaminophen 325 mg oral tablet (3 sources) Start: 09-16-2022 acetaminophen 325 mg oral tablet Dose : 650 mg = 2 tab(s), Oral, q4h, PRN as needed for pain Start Date: 09/16/22 Status: Ordered apixaban 5 mg oral tablet (1 source) Factor Xa Inhibitor Start: 09-20-2022 Eliquis 5 mg oral tablet Dose : 5 mg = 1 tab(s), Oral, BID, # 60 tab(s), 3 Refill(s), Pharmacy: [facility]/pharmacy #[id number], 182.9, cm, 09/16/22 20:27:00 EDT, Height, 94.5, kg, 09/16/22 20:27:00 EDT, Dosing Weight Start Date: 09/20/22 Status: Ordered aspirin 81 mg delayed release oral tablet (4 sources) Platelet Aggregation Inhibitor, Nonsteroidal Anti-inflammatory Drug Start: 11-23-2022 aspirin 81 mg oral delayed release tablet Dose : 81 mg = 1 tab(s), Oral, Daily, # 30 tab(s), 11 Refill(s), Pharmacy: [facility], 190.5, cm, 11/23/22 11:19:00 EDT, Height, kg, 11/23/22 11:19:00 EDT, Dosing Weight Start Date: 11/23/22 Status: Ordered Start: 12-09-2021 take 1 tablet by connie th at breakfast Aspirin 81 mg Tablet,Chewable Active 81 mg PO WITH BREAKFAST 30 2 December 09, 2021 12:00am atorvastatin 80 mg oral tablet (8 sources) HMG-CoA Reductase Inhibitor Start: 12-09-2021 atorvastatin 80 mg oral tablet Dose : 80 mg = 1 tab(s), Oral, qHS, # 30 tab(s), 1 Refill(s), Pharmacy: [facility]/pharmacy #[id number], 182.9, cm, 09/16/22 20:27:00 EDT, Height, kg, 09/16/22 20:27:00 EDT, Dosing Weight Start Date: 09/20/22 Status: Ordered Start: 07-24-2020 End: 07-26-2020 take 1 tablet by mouth at bedtime Atorvastatin 80 mg Tablet Discontinued 80 mg PO AT BEDTIME July 24, 2020 12:00am July 26, 2020 11:06am cholesterol carvedilol 12.5 mg oral tablet (5 sources) alpha-Adrenergic Cornelius, beta-Adrenergic Cornelius Start: 04-15-2023 carvedilol 12.5 mg oral tablet Dose : 25 mg = 2 tab(s), Oral, BID, # 60 tab(s), 4 Refill(s), Pharmacy: [facility], 190.5, cm, 12/23/22 8:59:00 EST, Height, kg, 12/23/22 8:59:00 EST, Dosing Weight Start Date: 04/15/23 Status: Ordered Start: 12-23-2022 carvedilol 12. 5 mg oral tablet Dose : 12.5 mg = 1 tab(s), Oral, BID, # 60 tab(s), 7 Refill(s), Pharmacy: [facility], 190.5, cm, 12/23/22 8:59:00 EST, Height, kg, 12/23/22 8:59:00 EST, Dosing Weight Start Date: 12/23/22 Status: Ordered Start: 07-26-2020 take 1 tablet by connie twice daily at mealtime Carvedilol 6.25 mg tablet Active 6.25 mg PO TWICE A DAY 60 2 July 26, 2020 12:00am must administer with a meal/food ciclopirox 80 mg/ml topical solution (1 source) Start: 08-28-2024 Ciclopirox (Ci clodan) 8 % solution Active 1 NMA TOPICAL DAILY August 28, 2024 12:00am clopidogrel 75 mg oral tablet (5 sources) [id number] Platelet Inhibitor Start: 12-23-2022 clopidogrel 75 mg or al tablet Dose : 75 mg = 1 tab(s), Oral, qDay, # 30 tab(s), 0 Refill(s) Start Date: 12/23/22 Status: Ordered Start: 12-09-2021 End: 08-28-2024 clopidogrel 75 mg oral table t Dose : 75 mg = 1 tab(s), Oral, qDay, # 30 tab(s), 1 Refill(s), Pharmacy: [facility]/pharmacy #[id number], 182.9, cm, 09/16/22 20:27:00 EDT, Height, kg, 09/16/22 20:27:00 EDT, Dosing Weight Start Date: 09/20/22 Status: Ordered empagliflozin 25 mg oral tablet (4 sources) Sodium-Glucose Cotransporter 2 Inhibitor Start: 08-28-2024 take 1 tablet by mouth once daily Empagliflozin (Jardiance) 25 mg tablet Active 25 mg PO DAILY August 28, 2024 12:00am Start: 12-23-2022 Jardiance 25 m g oral tablet Dose : 25 mg = 1 tab(s), Oral, qAM, # 30 tab(s), 8 Refill(s), Pharmacy: [facility], 190.5, cm, 12/23/22 8:59:00 EST, Height, kg, 12/23/22 8:59:00 EST, Dosing Weight Start Date: 12/23/22 Status: Ordered Start: 09-20-2022 Jardiance 10 m g oral tablet Dose : 10 mg = 1 tab(s), Oral, qAM, # 30 tab(s), 1 Refill(s), Pharmacy: [facility]/pharmacy #[id number], 182.9, cm, 09/16/22 20:27:00 EDT, Height, kg, 09/16/22 20:27:00 EDT, Dosing Weight Start Date: 09/20/22 Status: Ordered ferrous sulfate 324 mg delayed release oral tablet (2 sources) Start: 12-23-2022 ferrous sulfat e 324 mg (65 mg elemental iron) oral delayed release tablet Dose : 324 mg = 1 tab(s), Oral, qDay, # 90 tab(s), 0 Refill(s) Start Date: 12/23/22 Status: Ordered fluticasone propionate 0.05 mg/actuat metered dose nasal spray (3 sources) Corticosteroid Start: 07-24-2020 Fluticasone Pr opionate 50 mcg/actuation [place],Suspension Active 2 NMA INTRANASAL DAILY July 24, 2020 12:00am allergies Start: 07-24-2020 Fluticasone Pr opionate Active 2 SPRAY INTRANASAL DAILY July 24, 2020 12:00am gabapentin 300 mg oral capsule (6 sources) Anti-epileptic Agent Start: 07-24-2020 gabapenti n 300 mg oral capsule Dose : 300 mg = 1 cap(s), Oral, TID, 94.5 Start Date: 09/16/22 Status: Ordered glipiZIDE 5 mg oral tablet (3 sources) Sulfonylurea Start: 09-16-2022 glipiZIDE 5 mg oral tablet Dose : 5 mg = 1 tab(s), Oral, BIDM Start Date: 09/16/22 Status: Ordered Hydrophilic Cream cream (1 source) Start: 08-28-2024 Hydrophilic Cr eam cream Active 1 NMA TOPICAL THREE TIMES A DAY as needed for dry skin August 28, 2024 12:00am metFORMIN hydrochloride 500 mg oral tablet (6 sources) Biguanide Start: 09-16-2022 metFORMIN 500 mg oral tablet (IR) Dose : 1,000 mg = 2 tab(s), Oral, BID Start Date: 09/16/22 Status: Ordered Start: 07-24-2020 take 2 tablets by mo uth twice daily at mealtime Metformin 500 mg Tablet Active 1000 mg PO TWICE DAILY WITH MEALS July 24, 2020 12:00am diabetes Start: 07-24-2020 take 1000 mg by mout h twice daily at mealtime Metformin Active 1000 MG PO TWICE DAILY WITH MEALS July 24, 2020 12:00am nitroglycerin 0.4 mg sublingual tablet (3 sources) Nitrate Vasodilator Start: 07-26-2020 Nitroglyce rin 0.4 mg Tablet, Sublingual Active 0.4 mg SL Q5M as needed for Cardiac/Chest Pain 30 July 26, 2020 12:00am Start: 07-26-2020 Nitroglycerin Active 0.4 MG SL Q5M July 26, 2020 12:00am omeprazole 20 mg delayed release oral capsule (1 source) Proton Pump Inhibitor Start: 08-28-2024 take 1 capsule by mouth once daily Omeprazole 20 mg capsule,delayed release(DR/EC) Active 20 mg PO DAILY August 28, 2024 12:00am PARoxetine hydrochloride 30 mg oral tablet (7 sources) Serotonin Reuptake Inhibitor Start: 08-28-2024 take 1 tablet by mouth once daily Paroxetine Hcl 30 mg tablet Active 30 mg PO DAILY August 28, 2024 12:00am Start: 09-16-2022 PARoxetine 30 mg oral tablet Dose : 30 mg = 1 tab(s), Oral, qHS Start Date: 09/16/22 Status: Ordered Start: 07-24-2020 End: 08-28-2024 take 2 tablets by mouth at bedtime Paroxetine Hcl 10 mg Tablet Discontinued 20 mg PO AT BEDTIME July 24, 2020 12:00am August 28, 2024 5:27pm depression Start: 07-24-2020 take 20 mg by mouth at bedtime Paroxetine Hcl Active 20 MG PO AT BEDTIME July 24, 2020 12:00am rivaroxaban 20 mg oral tablet (2 sources) Factor Xa Inhibitor Start: 11-19-2022 rivaroxaba n 20 mg oral tablet Dose : 20 mg = 1 tab(s), Oral, with supper, # 30 tab(s), 6 Refill(s), Pharmacy: [facility], 182.9, cm, 09/16/22 20:27:00 EDT, Height, 94.5, kg, 09/16/22 20:27:00 EDT, Dosing Weight Start Date: 11/19/22 Status: Ordered sacubitril 97 mg / valsartan 103 mg oral tablet (4 sources) Angiotensin 2 Receptor Cornelius Start: 08-28-2024 Sacubitril-Valsartan (Entresto) 97-103 mg tablet Active 1 {tbl} PO TWICE A DAY August 28, 2024 12:00am Start: 12-23-2022 take 1 tablet by connie th twice daily Entresto 97 mg-103 mg oral tablet Dose = 1 tab(s), Oral, BID, # 60 tab(s), 6 Refill(s), Pharmacy: [facility], 190.5, cm, 12/23/22 8:59:00 EST, Height, kg, 12/23/22 8:59:00 EST, Dosing Weight Start Date: 02/17/23 Status: Ordered Start: 09-20-2022 take 1 tablet by connie twice daily Entresto 49 mg-51 mg oral tablet Dose = 1 tab(s), Oral, BID, # 60 tab(s), 3 Refill(s), Pharmacy: [facility]/pharmacy #[id number], 182.9, cm, 09/16/22 20:27:00 EDT, Height, kg, 09/16/22 20:27:00 EDT, Dosing Weight Start Date: 09/20/22 Status: Ordered spironolactone 25 mg oral tablet (6 sources) Aldosterone Antagonist Start: 12-23-2022 spironolactone 25 mg oral tablet Dose : 25 mg = 1 tab(s), Oral, qDay, # 90 tab(s), 7 Refill(s), Pharmacy: [facility], 190.5, cm, 12/23/22 8:59:00 EST, Height, kg, 12/23/22 8:59:00 EST, Dosing Weight Start Date: 12/23/22 Status: Ordered Start: 07-26-2020 spironolactone 25 mg oral tablet Dose : 25 mg = 1 tab(s), Oral, qDay, # 30 tab(s), 1 Refill(s), Pharmacy: [facility]/pharmacy #[id number], 182.9, cm, 09/16/22 20:27:00 EDT, Height, kg, 09/16/22 20:27:00 EDT, Dosing Weight Start Date: 09/20/22 Status: Ordered traZODone hydrochloride 50 mg oral tablet (6 sources) Serotonin Reuptake Inhibitor Start: 07-24-2020 traZODone 50 mg oral tablet Dose : 50 mg = 1 tab(s), Oral, qHS Start Date: 09/16/22 Status: Ordered Vitamin C 500 mg oral tablet (2 sources) Start: 12-23-2022 Vitamin C 500 mg oral tablet Dose : 500 mg = 1 tab(s), Oral, qDay, # 30 tab(s), 0 Refill(s) Start Date: 12/23/22 Status: Ordered Completed/Discontinued Medications Medication Drug Class(es) Dates Sig (Normalized) Sig (Original) ascorbic acid 500 mg oral tablet (3 sources) Vitamin C Start: 07-26-2020 End: 08-28-2024 take 1 tablet by mouth twice daily at mealtime Ascorbic Acid (Vitamin C) 500 mg Tablet Discontinued 500 mg PO TWICE DAILY WITH MEALS 60 0 July 26, 2020 12:00am August 28, 2024 6:17pm furosemide 40 mg oral tablet (5 sources) Loop Diuretic Start: 07-26-2020 End: 08-28-2024 take 1 tablet by mouth twice daily Furosemide (Lasix) 40 mg tablet Discontinued 40 mg PO TWICE A DAY 60 1 December 09, 2021 10:12am August 28, 2024 5:26pm lisinopril 10 mg oral tablet (9 sources) Angiotensin Converting Enzyme Inhibitor Start: 12-06-2021 Lisinopril Active 20 MG PO DAILY December 06, 2021 2:29pm Hold for SBP less than 120 mmHg Start: 07-26-2020 End: 08-28-2024 Lisinopril 10 mg tablet Disc ontinued 20 mg PO DAILY December 06, 2021 2:29pm August 28, 2024 5:27pm blood pressure Hold for SBP less than 120 mmHg Start: 07-24-2020 End: 07-26-2020 take 1 tablet by mouth once daily Lisinopril 10 mg Tablet Discontinued 10 mg PO DAILY July 24, 2020 12:00am July 26, 2020 11:06am blood pressure naproxen 375 mg oral tablet (3 sources) Nonsteroidal Anti-inflammatory Drug Start: 07-24-2020 End: 07-26-2020 take 1 tablet by mouth twice daily as needed for pain Naproxen 375 mg Tablet Discontinued 375 mg PO TWICE DAILY NEEDED as needed for Pain July 24, 2020 12:00am July 26, 2020 10:55am Problems Active Problems Problem Classification Problem Date Documented Date Episodic/Chronic Acute cerebrovascular disease (6 sources) Cerebrovascular accident; Translations: [Cerebral infarction, unspecified] Onset: 2 Chronic Acute myocardial infarction (6 sources) Myocardial infarction; Translations: [Non-ST elevation (NSTEMI) myocardial infarction] Onset: 2 Chronic Anxiety disorders (2 sources) Agoraphobia 11-23-2022 Chronic Congestive heart failure; nonhypertensive (11 sources) Decompensated chronic heart failure; Translations: [Heart failure, unspecified] Onset: 2 Chronic Coronary atherosclerosis and other heart disease (2 sources) Coronary arteriosclerosis 11-23-2022 Chronic Deficiency and other anemia (3 sources) Anemia; Translations: [Anemia, unspecified] 07-24-2020 Episodic Diabetes mellitus with complications (2 sources) Polyneuropathy due to diabetes mellitus; Translations: [Type 2 diabetes mellitus with diabetic polyneuropathy] 08-28-2024 Chronic Diabetes mellitus without complication (5 sources) Diabetes mellitus; Translations: [Type 2 diabetes mellitus without complications] Onset: 2 Chronic Disorders of lipid metabolism (4 sources) Hyperlipidemia; Translations: [Hyperlipidemia, unspecified] Onset: 2 Chronic Essential hypertension (6 sources) Hypertensive disorder; Translations: [Essential (primary) hypertension] Onset: 2 Chronic Fluid and electrolyte disorders (1 source) Hypo-osmolality and or hyponatremia; Translations: [Hypo-osmolality and hyponatremia] Episodic Gangrene (2 sources) Gangrenous disorder; Translations: [Gangrene, not elsewhere classified] 08-28-2024 Episodic Hypertension with complications and secondary hypertension (2 sources) Hypertensive emergency; Translations: [Hypertensive emergency] Chronic Infective arthritis and osteomyelitis (except that caused by tuberculosis or sexually transmitted disease) (2 sources) Acute osteomyelitis of phalanx of toe; Translations: [Other acute osteomyelitis, right ankle and foot] 08-28-2024 Chronic Other aftercare (2 sources) Post-discharge follow-up 11-23-2022 Episodic Other and ill-defined heart disease (2 sources) Left ventricular systolic dysfunction; Translations: [Heart disease, unspecified] 12-17-2021 Chronic Other and ill-defined heart disease (2 sources) Heart disease, unspecified; Translations: [Heart disease, unspecified] Onset: 2 Chronic Other circulatory disease (2 sources) Peripheral vascular disease; Translations: [Other specified peripheral vascular diseases] 08-28-2024 Chronic Other circulatory disease (1 source) Low blood pressure; Translations: [Hypotension, unspecified] Episodic Other hematologic conditions (2 sources) Raised cardiac enzyme or marker; Translations: [Other specified abnormalities of plasma proteins] Episodic Other hematologic conditions (2 sources) Other specified abnormalities of plasma proteins; Translations: [Other abnormal blood chemistry] Episodic Other lower respiratory disease (3 sources) Dyspnea; Translations: [Dyspnea, unspecified] 07-24-2020 Episodic Other lower respiratory disease (3 sources) Hypoxia; Translations: [Hypoxemia] 07-24-2020 Episodic Other lower respiratory disease (1 source) Abnormal findings on diagnostic imaging of lung; Translations: [Other nonspecific abnormal finding of lung field] Episodic Other nervous system disorders (1 source) Slurred speech; Translations: [Slurred speech] Onset: 2 Episodic Other screening for suspected conditions (not mental disorders or infectious disease) (4 sources) Electrocardiogram abnormal; Translations: [Abnormal electrocardiogram [ECG] [EKG]] Episodic Skin and subcutaneous tissue infections (2 sources) Cellulitis of right lower limb; Translations: [Cellulitis of right lower limb] 08-28-2024 Episodic Past or Other Problems Problem Classification Problem Date Documented Date Episodic/Chronic Acute cerebrovascular disease (1 source) Acute cerebrovascular disease Onset: 12-09-2021 Respiratory failure; insufficiency; arrest (adult) (2 sources) Acute respiratory failure with hypoxia; Translations: [Acute respiratory failure with hypoxia] Onset: 09-16-2022 Episodic Results Test Name Value Interpretation Reference Range Facility Absolute lymphocyte countOrd ered By: Johnnie Vines on 08-28-2024 Lymphocytes Auto (Unsp spec) [#/Vol] 1.59 10*3/uL 0.83-4.51 [facility] Absolute neutrophil countOrd ered By: Johnnie Vines on 08-28-2024 Neutrophils (Bld) [#/Vol] 9.2 10*3/uL High 2.0-7.7 [facility] Anion gap in Serum or Plasma Ordered By: Johnnie Vines on 08-28-2024 Anion gap [Moles/Vol] 15 mmol/L 5-15 [facility] Automated lymphocyte count a s percentage of total leukocytesOrdered By: Johnnie Vines on 08-28-2024 Lymphocytes/100 WBC Auto (Unsp spec) 13.4 % Low 19-41 [facility] BUN/creatinine ratioOrdered By: Johnnie Vines on 08-28-2024 Urea nitrogen/Creatinine [Mass ratio] 12.5 mg/mg 10-20 [facility] Basophil percentageOrdered B y: Johnnie Vines on 08-28-2024 Basophils/100 WBC (Bld) 0.4 % 0-1 [facility] Carbon dioxide, total [Moles /volume] in Central venous bloodOrdered By: Johnnie Vines on 08-28-2024 CO2 [Moles/Vol] 21.8 mmol/L 21.0-32.0 [facility] Chloride assayOrdered By: Jorge Vinse on 08-28-2024 Chloride [Moles/Vol] 98 mmol/L 98-108 [facility] Eosinophil percentageOrdered By: Johnnie Vines on 08-28-2024 Eosinophils/100 WBC (Bld) 0.6 % 0-5 [facility] Erythrocyte distribution wid th ratioOrdered By: Johnnie Vines on 08-28-2024 Erythrocyte distribution width (RBC) [Ratio] 12.5 % 11.6-14.6 [facility] Erythrocyte distribution wid th standard deviationOrdered By: Johnnie Soliman on 08-28-2024 Erythrocyte distribution width (RBC) [Ratio] 39.1 fl 35.1-43.9 [facility] Erythrocyte sedimentation ra teOrdered By: Johnnie Vines on 08-28-2024 ESR (Bld) [Velocity] 52 mm/h High 0-20 [facility] Glomerular filtration rate ( GFR) estimation/1.73 sq m using serum, plasma, or whole bOrdered By: Johnnie Vines on 08-28-2024 GFR/1.73 sq M.predicted among non-blacks MDRD (S/P/Bld) [Vol rate/Area] 40 mL/min/{1.73_m2} Low >60 [facility] Comment on above: mL/min/1.73m2 CKD-EP I Creatinine Equation (2020) Hematocrit Auto (Bld) [Volum e fraction]Ordered By: Johnnie Vines on 08-28-2024 Hematocrit (Bld) [Volume fraction] 31.1 % Low 40-54 [facility] Hemoglobin measurementOrdere d By: Johnnie Vines on 08-28-2024 Hemoglobin (Bld) [Mass/Vol] 10.4 g/dL Low 13.0-16.5 [facility] Immature granulocytes/100 WB C Auto (Bld)Ordered By: Johnnie Vines on 08-28-2024 Immature granulocytes/100 WBC (Bld) 0.500 % 0.0-0.9 [facility] Comment on above: IG% - Immature Granu locytes (promyelocytes, myelocytes and metamyelocytes) > 1% indicates that a LEFT SHIFT is Present. Lactic acid measurementOrder ed By: Johnnie Vines on 08-28-2024 Lactate [Moles/Vol] 1.3 mmol/L 0.0-2.0 [facility] MCV (mean corpuscular volume ) determinationOrdered By: Johnnie Vines on 08-28-2024 MCV (RBC) [Entitic vol] 86.1 fL 80-94 [facility] Mean corpuscular hemoglobin (MCH) determinationOrdered By: Johnnie Vines on 08-28-2024 MCH (RBC) [Entitic mass] 28.8 pg 27.0-32.0 [facility] Mean corpuscular hemoglobin concentration (MCHC) determinationOrdered By: Johnnie Vines on 08-28-2024 MCHC (RBC) [Mass/Vol] 33.4 g/dL 32-36 [facility] Mean platelet volume determi nationOrdered By: Johnnie Vines on 08-28-2024 Platelet mean volume (Bld) [Entitic vol] 9.9 fL 6.2-12.0 [facility] Monocyte percentageOrdered B y: Johnnie Vines on 08-28-2024 Monocytes/100 WBC (Bld) 7.6 % 0-10 [facility] Neutrophil percentageOrdered By: Johnnie Vines on 08-28-2024 Neutrophils/100 WBC (Bld) 77.5 % High 47-70 [facility] Nucleated red blood cell per centageOrdered By: Johnnie Vines on 08-28-2024 Nucleated RBC/100 WBC (Bld) [Ratio] 0 % 0-5 [facility] Platelet countOrdered By: Jorge Vines on 08-28-2024 Platelets (Bld) [#/Vol] 357 10*3/uL 150-450 [facility] Potassium measurement (mass/ volume)Ordered By: Johnnie Vines on 08-28-2024 Potassium (Unsp spec) [Mass/Vol] 4.0 mmol/L 3.3-5.1 [facility] Comment on above: Hemolysis present, R esults could be affected. RBC Auto (Bld) [#/Vol]Ordere d By: Johnnie Vines on 08-28-2024 RBC (Bld) [#/Vol] 3.61 10*6/uL Low 4.6-6.2 [facility] Serum creatinine measurement (mass/volume)Ordered By: Johnnie Vines on 08-28-2024 Creatinine [Mass/Vol] 1.93 mg/dL High 0.70-1.20 [facility] Serum glucose measurement (m ass/volume)Ordered By: Johnnie Vines on 08-28-2024 Glucose [Mass/Vol] 201 mg/dL High 70-99 [facility] Serum or plasma C reactive p rotein measurement (mass/volume)Ordered By: Johnnie Vines on 08-28-2024 CRP [Mass/Vol] 155.00 mg/L High 0.0-3.0 [facility] Serum or plasma calcium enmanuel urement (mass/volume)Ordered By: Johnnie Soliman on 08-28-2024 Calcium [Mass/Vol] 9.0 mg/dL 7.6-11.0 [facility] Serum or plasma urea nitroge n measurement (mass/volume)Ordered By: Johnnie CallesLong on 08-28-2024 Urea nitrogen [Mass/Vol] 24 mg/dL High 4-19 [facility] Sodium levelOrdered By: Van wylie Mohinder on 08-28-2024 Sodium [Moles/Vol] 134 mmol/L 133-145 [facility] White blood cell (WBC) count Ordered By: Johnniekvng HdezJourdan on 08-28-2024 WBC (Bld) [#/Vol] 11.9 10*3/uL High 4.4-11.0 [facility] MYCOon 09-21-2022 Mycoplasma IgG Positive Normal [facility] ([place]) Comment on above: Result Comment: INTE RPRETATION OF MYCOPLASMA IgG BY EIA: Negative: No detectable M. pneumoniae IgG antibody. Positive: Mycoplasma pneumoniae IgG antibody Detected. Equivocal: Equivocal for IgG antibodies to Mycoplasma pneumoniae. Suggest repeat testing in 10-14 days. Performed By: #### H FP, CBC, ANEU, ADIFF #### [address] [address] .Auto Diffon 09-20-2022 Basophil, Absolute 0.1 10 3/mcL Normal 0.0-0.3 [facility] ([place]) Comment on above: Performed By: #### M G, GFR, BMP #### [address] [address] Basophils/100 WBC (Bld) 0.9 % Normal 0.0-2.5 A [facility] ([place]) Comment on above: Performed By: #### M G, GFR, BMP #### [address] [address] Eosinophil, Absolute 0.2 10 3/mcL Normal 0.0-0.7 [facility] ([place]) Comment on above: Performed By: #### M G, GFR, BMP #### [address] [address] Eosinophils/100 WBC (Bld) 2.3 % Normal 0.0-6.0 [facility] ([place]) Comment on above: Performed By: #### Diamond G, GFR, BMP #### [address] [address] Lymphocyte, Absolute 0.9 10 3/mcL Normal 0.9-4.3 [facility] ([place]) Comment on above: Performed By: #### Diamond G, GFR, BMP #### [address] [address] Lymphocytes/100 WBC (Bld) 12.7 % Low 20.0-40.0 [facility] ([place]) Comment on above: Performed By: #### Diamond G, GFR, BMP #### [address] [address] Monocyte, Absolute 0.7 10 3/mcL Normal 0.1-1.4 [facility] ([place]) Comment on above: Performed By: #### Diamond G, GFR, BMP #### [address] [address] Monocytes/100 WBC (Bld) 10.1 % Normal 2.0-13.0 A [facility] ([place]) Comment on above: Performed By: #### Diamond G, GFR, BMP #### [address] [address] Neutrophils/100 WBC (Bld) 74.0 % Normal 50.0-75.0 [facility] ([place]) Comment on above: Performed By: #### Diamond G, GFR, BMP #### [address] [address] .GFRon 09-20-2022 GFR >60 Normal [facility] ([place]) Comment on above: Result Comment: GFR Population mean for , Non- Americans Ages 20-29 = 116 mL/min/1.73 sq.m. Ages 30-39 = 107 mL/min/1.73 sq.m. Ages 40-49 = 99 mL/min/1.73 sq.m. Ages 50-59 = 93 mL/min/1.73 sq.m. Ages 60-69 = 85 mL/min/1.73 sq.m. Ages 70+ = 75 mL/min/1.73 sq.m. Chronic Kidney Disease: Less than 60 mL/min/1.73 square meters End Stage Renal Disease: Less than 15 mL/min/1.73 square meters Performed By: #### Diamond Ortega, GFR, BMP #### [address] [address] GFR Non- >60 Normal [facility] ([place]) Comment on above: Result Comment: GFR Population mean for , Non- Americans Ages 20-29 = 116 mL/min/1.73 sq.m. Ages 30-39 = 107 mL/min/1.73 sq.m. Ages 40-49 = 99 mL/min/1.73 sq.m. Ages 50-59 = 93 mL/min/1.73 sq.m. Ages 60-69 = 85 mL/min/1.73 sq.m. Ages 70+ = 75 mL/min/1.73 sq.m. Chronic Kidney Disease: Less than 60 mL/min/1.73 square meters End Stage Renal Disease: Less than 15 mL/min/1.73 square meters Performed By: #### M Jordan, GFR, BMP #### [address] [address] .NEUABSon 09-20-2022 Neutrophil, Absolute 5.3 10 3/mcL Normal 2.3-8.1 [facility] ([place]) Comment on above: Performed By: #### M Jordan, GFR, BMP #### [address] [address] APTTon 09-20-2022 aPTT Coag (Bld) [Time] 52.4 s High 25.0-35.0 [facility] ([place]) Comment on above: Result Comment: For Heparin anticoagulation therapy, the recommended therapeutic range is: 54-77 seconds (APTT Correlation with Anti-Xa therapeutic range of 0.3-0.7 units/ml). PLEASE REFERENCE THE PHARMACY PROTOCOL FOR DOSING. Performed By: #### A PTT #### [address] [address] Heparin dose (APTT) Heparin IV Normal [facility] ([place]) Comment on above: Performed By: #### A PTT #### [place] [id number] aPTT Coag (Bld) [Time] 43.4 s High 25.0-35.0 [facility] ([place]) Comment on above: Result Comment: For Heparin anticoagulation therapy, the recommended therapeutic range is: 54-77 seconds (APTT Correlation with Anti-Xa therapeutic range of 0.3-0.7 units/ml). PLEASE REFERENCE THE PHARMACY PROTOCOL FOR DOSING. Performed By: #### M G, GFR, BMP #### [place] [address] Heparin dose (APTT) Heparin IV Normal [facility] ([place]) Comment on above: Performed By: #### M G, GFR, BMP #### [place] [address] BMPon 09-20-2022 BUN/Creatinine Ratio 9.8 ratio Low 10.0-22.0 [facility] ([place]) Comment on above: Performed By: #### M G, GFR, BMP #### [place] [address] Calcium [Mass/Vol] 8.2 mg/dL Low 8.7-10.4 [facility] ([place] Comment on above: Performed By: #### M G, GFR, BMP #### [place] [id number] Chloride [Moles/Vol] 106 mmol/L Normal 98-110 [facility] ([place] Comment on above: Performed By: #### M G, GFR, BMP #### [place] [address] CO2 [Moles/Vol] 27 mmol/L Normal 22-32 [facility] ([place]) Comment on above: Performed By: #### M G, GFR, BMP #### [place] [id number] Creatinine [Mass/Vol] 1.23 mg/dL Normal 0.60-1.40 [facility] ([place]) Comment on above: Performed By: #### M G, GFR, BMP #### [place] [id number] Electrolyte Balance 4.0 mEq/L Normal 4.0-15.0 [facility] ([place]) Comment on above: Performed By: #### Diamond Ortega, GFR, BMP #### [address] [address] Glucose [Mass/Vol] 237 mg/dL High 70-110 [facility] [place] Comment on above: Performed By: #### M Jordan, GFR, BMP #### [address] [address] Potassium [Moles/Vol] 4.0 mmol/L Normal 3.5-5.0 [facility] ([place]) Comment on above: Performed By: #### Diamond Ortega, GFR, BMP #### [place] [id number] Sodium [Moles/Vol] 137 mmol/L Normal 136-145 [facility] [place] Comment on above: Performed By: #### Diamond Ortega, GFR, BMP #### [place] [id number] Urea nitrogen [Mass/Vol] 12.0 mg/dL Normal 8.0-22.0 [facility] ([place]) Comment on above: Performed By: #### Diamond Ortega, GFR, BMP #### [address] [address] CBCon 09-20-2022 Erythrocyte distribution width (RBC) [Ratio] 14.1 % Normal 11.5-15.5 [facility] ([place]) Comment on above: Performed By: #### Diamond Ortega, GFR, BMP #### [address] [address] Hematocrit (Bld) [Volume fraction] 36.6 % Low 40.0-52.0 [facility] ([place]) Comment on above: Performed By: #### Diamond Ortega, GFR, BMP #### [address] [address] Hgb 12.2 G/dL Low 13.0-17.5 [facility] ([place]) Comment on above: Performed By: #### Diamnod Ortega, GFR, BMP #### [address] [address] MCH (RBC) [Entitic mass] 29.3 pg Normal 27.0-33.0 [facility] ([place]) Comment on above: Performed By: #### Diamond Ortega GFR, BMP #### [address] [address] MCHC 33.4 G/dL Normal 32.0-36.0 [facility] ([place]) Comment on above: Performed By: #### Diamond Ortega, GFR, BMP #### [address] [address] MCV (RBC) [Entitic vol] 87.7 fL Normal 81.0-100.0 A [facility] ([place]) Comment on above: Performed By: #### Diamond Ortega GFR, BMP #### [place] [id number] Platelet 205 10 3/mcL Normal 150-450 [facility] ([place]) Comment on above: Performed By: #### Diamond Ortega GFR, BMP #### [address] [address] Platelet mean volume (Bld) [Entitic vol] 9.5 fL Normal 6.4-10.5 [facility] ([place]) Comment on above: Performed By: #### Diamond Ortega, GFR, BMP #### [place] [id number] RBC 4.17 10 6/mcL Low 4.50-6.00 [facility] ([place]) Comment on above: Performed By: #### Diamond Ortega, GFR, BMP #### [address] [address] WBC 7.1 10 3/mcL Normal 4.5-10.8 [facility] ([place]) Comment on above: Performed By: #### Diamond Ortega GFR, BMP #### [address] [address] HFPon 09-20-2022 Albumin Level 2.0 G/dL Low 3.2-4.8 [facility] ([place]) Comment on above: Performed By: #### Diamond Ortega, GFR, BMP #### [place] [address] Albumin/Globulin [Mass ratio] 0.6 {ratio} Low 0.9-1.6 [facility] ([place]) Comment on above: Performed By: #### M Jordan, GFR, BMP #### [place] [address] ALP [Catalytic activity/Vol] 82 U/L Normal 38-126 [facility] ([place]) Comment on above: Performed By: #### M Jordan, GFR, BMP #### [place] [address] ALT [Catalytic activity/Vol] 8 U/L Low 12-55 [facility] ([place]) Comment on above: Performed By: #### M Jordan, GFR, BMP #### [place] [address] AST [Catalytic activity/Vol] 10 U/L Normal 8-34 [facility] ([place]) Comment on above: Performed By: #### Diamond Ortega, GFR, BMP #### [place] [address] Bili Direct 0.2 mg/dL Normal 0.0-0.4 [facility] ([place]) Comment on above: Result Comment: Use of this assay is not recommended for patients undergoing treatment with eltrombopag due to the potential for falsely elevated results. Performed By: #### M Jordan, GFR, BMP #### [place] [address] Bili Indirect 0.3 mg/dL Normal 0.1-10.0 [facility] ([place]) Comment on above: Performed By: #### M G, GFR, BMP #### [place] [address] Bili Total 0.50 mg/dL Normal 0.20-1.20 [facility] ([place]) Comment on above: Result Comment: Use of this assay is not recommended for patients undergoing treatment with eltrombopag due to the potential for falsely elevated results. Performed By: #### Diamond G, GFR, BMP #### [place] [address] Globulin 3.4 G/dL Normal 1.5-3.8 [facility] ([place]) Comment on above: Performed By: #### M G, GFR, BMP #### [facility] [address] [place] [address] Total Protein 5.4 G/dL Low 5.7-8.2 [facility] ([place]) Comment on above: Result Comment: No te - New Reference Range in effect 19 Performed By: #### M G, GFR, BMP #### [facility] [address] [place] [address] LABORATORYOrdered By: Billie Lobo on 09-20-2022 Blood Glucose Testing Reason Routine (09/20/22 11:23 AM) [facility] Work Phone: Glucose [Mass/Vol] 183 mg/dL Invalid Interpretation Code 70 - 110 mg/dL [facility] Work Phone: Blood Glucose Testing Reason Routine (09/20/22 7:09 AM) [facility] Work Phone: Glucose [Mass/Vol] 226 mg/dL Invalid Interpretation Code 70 - 110 mg/dL [facility] Work Phone: LABORATORYOrdered By: Raymundo Santos on 09-20-2022 aPTT Coag (PPP) [Time] 52.4 s Invalid Interpretation Code 25.0 - 35.0 seconds Auto Coag SS Comment on above: Interpretive Data: F or Heparin anticoagulation therapy, the recommended therapeutic range is: 54-77 seconds (APTT Correlation with Anti-Xa therapeutic range of 0.3-0.7 units/ml). PLEASE REFERENCE THE PHARMACY PROTOCOL FOR DOSING. Heparin dose (APTT) Heparin IV (09/20/22 10:27 AM) Invalid Interpretation Code AH Auto Coag SS LABORATORYOrdered By: SYSTEM SYSTEM on 09-20-2022 Albumin BCP dye [Mass/Vol] 2.0 G/dL Invalid Interpretation Code 3.2 - 4.8 G/dL ADM SS Albumin/Globulin [Mass ratio] 0.6 {ratio} Invalid Interpretation Code 0.9 - 1.6 ratio ADM SS ALP [Catalytic activity/Vol] 82 U/L Invalid Interpretation Code 38 - 126 U/L AH ADM SS ALT No additional P-5'-P [Catalytic activity/Vol] 8 U/L Invalid Interpretation Code 12 - 55 U/L AH ADM SS AST [Catalytic activity/Vol] 10 U/L Invalid Interpretation Code 8 - 34 U/L ADM SS Basophils (Bld) [#/Vol] 0.1 103/mcL Invalid Interpretation Code 0.0 - 0.3 10^3/mcL AH Workflow SS Basophils/100 WBC (Bld) 0.9 % Invalid Interpretation Code 0.0 - 2.5 % AH Workflow SS Bili Indirect 0.3 mg/dL Invalid Interpretation Code 0.1 - 10.0 mg/dL Chemistry S Bilirubin [Mass/Vol] 0.50 mg/dL Invalid Interpretation Code 0.20 - 1.20 mg/dL ADM SS Comment on above: Interpretive Data: U se of this assay is not recommended for patients undergoing treatment with eltrombopag due to the potential for falsely elevated results. Bilirubin.conjugated [Mass/Vol] 0.2 mg/dL Invalid Interpretation Code 0.0 - 0.4 mg/dL ADM SS Comment on above: Interpretive Data: U se of this assay is not recommended for patients undergoing treatment with eltrombopag due to the potential for falsely elevated results. Calcium [Mass/Vol] 8.2 mg/dL Invalid Interpretation Code 8.7 - 10.4 mg/dL ADM SS Chloride [Moles/Vol] 106 mmol/L Invalid Interpretation Code 98 - 110 mEq/L ADM SS CO2 [Moles/Vol] 27 mmol/L Invalid Interpretation Code 22 - 32 mEq/L ADM SS Creatinine [Mass/Vol] 1.23 mg/dL Invalid Interpretation Code 0.60 - 1.40 mg/dL ADM SS Electrolyte Balance 4.0 mEq/L Invalid Interpretation Code 4.0 - 15.0 mEq/L ADM SS Eosinophils (Bld) [#/Vol] 0.2 103/mcL Invalid Interpretation Code 0.0 - 0.7 10^3/mcL Workflow SS Eosinophils/100 WBC (Bld) 2.3 % Invalid Interpretation Code 0.0 - 6.0 % Workflow SS Erythrocyte distribution width (RBC) [Ratio] 14.1 % Invalid Interpretation Code 11.5 - 15.5 % Workflow SS GFR/1.73 sq M.predicted among blacks MDRD (S/P/Bld) [Vol rate/Area] ml/min/1.73sqm Invalid Interpretation Code [facility] Comment on above: Interpretive Data: GFR Population mean for , Non- Americans Ages 20-29 = 116 mL/min/1.73 sq.m. Ages 30-39 = 107 mL/min/1.73 sq.m. Ages 40-49 = 99 mL/min/1.73 sq.m. Ages 50-59 = 93 mL/min/1.73 sq.m. Ages 60-69 = 85 mL/min/1.73 sq.m. Ages 70+ = 75 mL/min/1.73 sq.m. Chronic Kidney Disease: Less than 60 mL/min/1.73 square meters End Stage Renal Disease: Less than 15 mL/min/1.73 square meters GFR/1.73 sq M.predicted among non-blacks MDRD (S/P/Bld) [Vol rate/Area] ml/min/1.73sqm Invalid Interpretation Code [facility] Comment on above: Interpretive Data: GFR Population mean for , Non- Americans Ages 20-29 = 116 mL/min/1.73 sq.m. Ages 30-39 = 107 mL/min/1.73 sq.m. Ages 40-49 = 99 mL/min/1.73 sq.m. Ages 50-59 = 93 mL/min/1.73 sq.m. Ages 60-69 = 85 mL/min/1.73 sq.m. Ages 70+ = 75 mL/min/1.73 sq.m. Chronic Kidney Disease: Less than 60 mL/min/1.73 square meters End Stage Renal Disease: Less than 15 mL/min/1.73 square meters Globulin 3.4 G/dL Invalid Interpretation Code 1.5 - 3.8 G/dL ADM Glucose [Mass/Vol] 237 mg/dL Invalid Interpretation Code 70 - 110 mg/dL ADM Hematocrit (Bld) [Volume fraction] 36.6 % Invalid Interpretation Code 40.0 - 52.0 % Workflow SS Hemoglobin (Bld) [Mass/Vol] 12.2 G/dL Invalid Interpretation Code 13.0 - 17.5 G/dL [facility] Lymphocytes (Bld) [#/Vol] 0.9 103/mcL Invalid Interpretation Code 0.9 - 4.3 10^3/mcL AH Workflow SS Lymphocytes/100 WBC (Bld) 12.7 % Invalid Interpretation Code 20.0 - 40.0 % AH Workflow SS Magnesium [Mass/Vol] 2.0 mg/dL Invalid Interpretation Code 1.6 - 2.4 mg/dL AH ADM SS MCH (RBC) [Entitic mass] 29.3 pg Invalid Interpretation Code 27.0 - 33.0 pg AH Workflow SS MCHC 33.4 G/dL Invalid Interpretation Code 32.0 - 36.0 G/dL AH Workflow SS MCV (RBC) [Entitic vol] 87.7 fL Invalid Interpretation Code 81.0 - 100.0 fL AH Workflow SS Monocytes (Bld) [#/Vol] 0.7 103/mcL Invalid Interpretation Code 0.1 - 1.4 10^3/mcL AH Workflow SS Monocytes/100 WBC (Bld) 10.1 % Invalid Interpretation Code 2.0 - 13.0 % AH Workflow SS Neutrophils (Bld) [#/Vol] 5.3 103/mcL Invalid Interpretation Code 2.3 - 8.1 10^3/mcL AH Workflow SS Neutrophils/100 WBC (Bld) 74.0 % Invalid Interpretation Code 50.0 - 75.0 % AH Workflow SS Platelet mean volume (Bld) [Entitic vol] 9.5 fL Invalid Interpretation Code 6.4 - 10.5 fL AH Workflow SS Platelets (Bld) [#/Vol] 205 103/mcL Invalid Interpretation Code 150 - 450 10^3/mcL AH Workflow SS Potassium [Moles/Vol] 4.0 mmol/L Invalid Interpretation Code 3.5 - 5.0 mEq/L ADM SS Protein [Mass/Vol] 5.4 G/dL Invalid Interpretation Code 5.7 - 8.2 G/dL AH ADM SS Comment on above: Interpretive Data: * *Note - New Reference Range in effect 19 RBC (Bld) [#/Vol] 4.17 106/mcL Invalid Interpretation Code 4.50 - 6.00 10^6/mcL AH Workflow SS Sodium [Moles/Vol] 137 mmol/L Invalid Interpretation Code 136 - 145 mEq/L ADM SS Urea nitrogen [Mass/Vol] 12.0 mg/dL Invalid Interpretation Code 8.0 - 22.0 mg/dL ADM SS Urea nitrogen/Creatinine [Mass ratio] 9.8 ratio Invalid Interpretation Code 10.0 - 22.0 ratio ADM SS WBC (Bld) [#/Vol] 7.1 103/mcL Invalid Interpretation Code 4.5 - 10.8 10^3/mcL Workflow SS LABORATORYOrdered By: Josey Tate on 09-20-2022 aPTT Coag (PPP) [Time] 43.4 s Invalid Interpretation Code 25.0 - 35.0 seconds AH Auto Coag SS Comment on above: Interpretive Data: F or Heparin anticoagulation therapy, the recommended therapeutic range is: 54-77 seconds (APTT Correlation with Anti-Xa therapeutic range of 0.3-0.7 units/ml). PLEASE REFERENCE THE PHARMACY PROTOCOL FOR DOSING. Heparin dose (APTT) Heparin IV (09/20/22 4:10 AM) Invalid Interpretation Code AH Auto Coag SS MGon 09-20-2022 Magnesium [Mass/Vol] 2.0 mg/dL Normal 1.6-2.4 [facility] ([place] Comment on above: Performed By: #### M G, GFR, BMP #### [address] [address] .Auto Diffon 09-19-2022 Basophil, Absolute 0.1 10 3/mcL Normal 0.0-0.3 [facility] ([place]) Comment on above: Performed By: #### H FP, CBC, ANEU, ADIFF #### [address] [address] Basophils/100 WBC (Bld) 1.0 % Normal 0.0-2.5 A [facility] ([place]) Comment on above: Performed By: #### H FP, CBC, ANEU, ADIFF #### [address] [address] Eosinophil, Absolute 0.1 10 3/mcL Normal 0.0-0.7 [facility] ([place]) Comment on above: Performed By: #### H FP, CBC, ANEU, ADIFF #### [address] [address] Eosinophils/100 WBC (Bld) 1.6 % Normal 0.0-6.0 [facility] ([place]) Comment on above: Performed By: #### H FP, CBC, ANEU, ADIFF #### [address] [address] Lymphocyte, Absolute 1.1 10 3/mcL Normal 0.9-4.3 [facility] ([place]) Comment on above: Performed By: #### H FP, CBC, ANEU, ADIFF #### [address] [address] Lymphocytes/100 WBC (Bld) 14.5 % Low 20.0-40.0 [facility] ([place]) Comment on above: Performed By: #### H FP, CBC, ANEU, ADIFF #### [address] [address] Monocyte, Absolute 0.7 10 3/mcL Normal 0.1-1.4 [facility] ([place] Comment on above: Performed By: #### H FP, CBC, ANEU, ADIFF #### [address] [address] Monocytes/100 WBC (Bld) 9.3 % Normal 2.0-13.0 A [facility] ([place]) Comment on above: Performed By: #### H FP, CBC, ANEU, ADIFF #### [address] [address] Neutrophils/100 WBC (Bld) 73.6 % Normal 50.0-75.0 [facility] ([place]) Comment on above: Performed By: #### H FP, CBC, ANEU, ADIFF #### [address] [address] .GFRon 09-19-2022 GFR >60 Normal [facility] ([place]) Comment on above: Result Comment: GFR Population mean for , Non- Americans Ages 20-29 = 116 mL/min/1.73 sq.m. Ages 30-39 = 107 mL/min/1.73 sq.m. Ages 40-49 = 99 mL/min/1.73 sq.m. Ages 50-59 = 93 mL/min/1.73 sq.m. Ages 60-69 = 85 mL/min/1.73 sq.m. Ages 70+ = 75 mL/min/1.73 sq.m. Chronic Kidney Disease: Less than 60 mL/min/1.73 square meters End Stage Renal Disease: Less than 15 mL/min/1.73 square meters Performed By: #### H FP, CBC, ANEU, ADIFF #### [address] [address] GFR Non- 60 ml/min/1.73sqm Normal [facility] ([place]) Comment on above: Result Comment: GFR Population mean for , Non- Americans Ages 20-29 = 116 mL/min/1.73 sq.m. Ages 30-39 = 107 mL/min/1.73 sq.m. Ages 40-49 = 99 mL/min/1.73 sq.m. Ages 50-59 = 93 mL/min/1.73 sq.m. Ages 60-69 = 85 mL/min/1.73 sq.m. Ages 70+ = 75 mL/min/1.73 sq.m. Chronic Kidney Disease: Less than 60 mL/min/1.73 square meters End Stage Renal Disease: Less than 15 mL/min/1.73 square meters Performed By: #### H FP, CBC, ANEU, ADIFF #### [address] [address] .NEUABSon 09-19-2022 Neutrophil, Absolute 5.8 10 3/mcL Normal 2.3-8.1 [facility] ([place]) Comment on above: Performed By: #### H FP, CBC, ANEU, ADIFF #### [address] [address] APTTon 09-19-2022 aPTT Coag (Bld) [Time] 61.4 s High 25.0-35.0 [facility] ([place]) Comment on above: Result Comment: For Heparin anticoagulation therapy, the recommended therapeutic range is: 54-77 seconds (APTT Correlation with Anti-Xa therapeutic range of 0.3-0.7 units/ml). PLEASE REFERENCE THE PHARMACY PROTOCOL FOR DOSING. Performed By: #### H FP, CBC, ANEU, ADIFF #### [address] [address] Heparin dose (APTT) Heparin IV Normal [facility] ([place]) Comment on above: Performed By: #### H FP, CBC, ANEU, ADIFF #### [place] [address] aPTT Coag (Bld) [Time] 52.7 s High 25.0-35.0 [facility] ([place]) Comment on above: Result Comment: For Heparin anticoagulation therapy, the recommended therapeutic range is: 54-77 seconds (APTT Correlation with Anti-Xa therapeutic range of 0.3-0.7 units/ml). PLEASE REFERENCE THE PHARMACY PROTOCOL FOR DOSING. Performed By: #### H FP, CBC, ANEU, ADIFF #### [place] [address] Heparin dose (APTT) Heparin IV Normal [facility] ([place]) Comment on above: Performed By: #### H FP, CBC, ANEU, ADIFF #### [place] [address] CBCon 09-19-2022 Erythrocyte distribution width (RBC) [Ratio] 13.9 % Normal 11.5-15.5 [facility] ([place]) Comment on above: Performed By: #### H FP, CBC, ANEU, ADIFF #### [place] [address] Hematocrit (Bld) [Volume fraction] 37.0 % Low 40.0-52.0 [facility] ([place]) Comment on above: Performed By: #### H FP, CBC, ANEU, ADIFF #### [place] [address] Hgb 12.4 G/dL Low 13.0-17.5 [facility] ([place]) Comment on above: Performed By: #### H FP, CBC, ANEU, ADIFF #### [place] [address] MCH (RBC) [Entitic mass] 29.5 pg Normal 27.0-33.0 [facility] ([place]) Comment on above: Performed By: #### H FP, CBC, ANEU, ADIFF #### [place] [address] MCHC 33.6 G/dL Normal 32.0-36.0 [facility] ([place]) Comment on above: Performed By: #### H FP, CBC, ANEU, ADIFF #### [address] [address] MCV (RBC) [Entitic vol] 88.0 fL Normal 81.0-100.0 A [facility] ([place]) Comment on above: Performed By: #### H FP, CBC, ANEU, ADIFF #### [place] [address] Platelet 193 10 3/mcL Normal 150-450 [facility] ([place]) Comment on above: Performed By: #### H FP, CBC, ANEU, ADIFF #### [place] [address] Platelet mean volume (Bld) [Entitic vol] 9.3 fL Normal 6.4-10.5 [facility] ([place]) Comment on above: Performed By: #### H FP, CBC, ANEU, ADIFF #### [place] [address] RBC 4.21 10 6/mcL Low 4.50-6.00 [facility] ([place]) Comment on above: Performed By: #### H FP, CBC, ANEU, ADIFF #### [place] [id number] WBC 7.9 10 3/mcL Normal 4.5-10.8 [facility] ([place]) Comment on above: Performed By: #### H FP, CBC, ANEU, ADIFF #### [place] [address] CMPon 09-19-2022 Albumin Level 2.4 G/dL Low 3.2-4.8 [facility] ([place]) Comment on above: Performed By: #### H FP, CBC, ANEU, ADIFF #### [place] [id number] Albumin/Globulin [Mass ratio] 0.7 {ratio} Low 0.9-1.6 [facility] ([place]) Comment on above: Performed By: #### H FP, CBC, ANEU, ADIFF #### [address] [address] ALP [Catalytic activity/Vol] 77 U/L Normal 38-126 [facility] ([place]) Comment on above: Performed By: #### H FP, CBC, ANEU, ADIFF #### [address] [address] ALT/SGPT <8 Low 12-55 [facility] ([place]) Comment on above: Performed By: #### H FP, CBC, ANEU, ADIFF #### [address] [address] AST [Catalytic activity/Vol] 12 U/L Normal 8-34 [facility] ([place]) Comment on above: Performed By: #### H FP, CBC, ANEU, ADIFF #### [address] [address] Bili Total 0.70 mg/dL Normal 0.20-1.20 [facility] ([place]) Comment on above: Result Comment: Use of this assay is not recommended for patients undergoing treatment with eltrombopag due to the potential for falsely elevated results. Performed By: #### H FP, CBC, ANEU, ADIFF #### [address] [address] BUN/Creatinine Ratio 10.4 ratio Normal 10.0-22.0 [facility] ([place] Comment on above: Performed By: #### H FP, CBC, ANEU, ADIFF #### [address] [address] Calcium [Mass/Vol] 8.0 mg/dL Low 8.7-10.4 [facility] [place] Comment on above: Performed By: #### H FP, CBC, ANEU, ADIFF #### [address] [address] Chloride [Moles/Vol] 107 mmol/L Normal 98-110 [facility] ([place] Comment on above: Performed By: #### H FP, CBC, ANEU, ADIFF #### [address] [address] CO2 [Moles/Vol] 28 mmol/L Normal 22-32 [facility] ([place]) Comment on above: Performed By: #### H FP, CBC, ANEU, ADIFF #### [address] [address] Creatinine [Mass/Vol] 1.25 mg/dL Normal 0.60-1.40 [facility] ([place]) Comment on above: Performed By: #### H FP, CBC, ANEU, ADIFF #### [address] [address] Electrolyte Balance 6.0 mEq/L Normal 4.0-15.0 [facility] ([place]) Comment on above: Performed By: #### H FP, CBC, ANEU, ADIFF #### [address] [address] Globulin 3.6 G/dL Normal 1.5-3.8 [facility] ([place]) Comment on above: Performed By: #### H FP, CBC, ANEU, ADIFF #### [address] [address] Glucose [Mass/Vol] 134 mg/dL High 70-110 [facility] [place] Comment on above: Performed By: #### H FP, CBC, ANEU, ADIFF #### [address] [address] Potassium [Moles/Vol] 3.6 mmol/L Normal 3.5-5.0 [facility] ([place]) Comment on above: Performed By: #### H FP, CBC, ANEU, ADIFF #### [address] [address] Sodium [Moles/Vol] 141 mmol/L Normal 136-145 [facility] [place] Comment on above: Performed By: #### H FP, CBC, ANEU, ADIFF #### [address] [address] Total Protein 6.0 G/dL Normal 5.7-8.2 [facility] ([place]) Comment on above: Result Comment: No te - New Reference Range in effect 19 Performed By: #### H FP, CBC, ANEU, ADIFF #### [address] [address] Urea nitrogen [Mass/Vol] 13.0 mg/dL Normal 8.0-22.0 [facility] ([place]) Comment on above: Performed By: #### H FP, CBC, ANEU, ADIFF #### [address] [address] LABORATORYOrdered By: Amie Hudson on 09-19-2022 Blood Glucose Testing Reason Routine (09/19/22 9:01 PM) [facility] Work Phone: Glucose [Mass/Vol] 151 mg/dL Invalid Interpretation Code 70 - 110 mg/dL [facility] Work Phone: LABORATORYOrdered By: Kenzie carmona on 09-19-2022 LDose Vancomycin:(trough) See eMAR (09/19/22 8:31 PM) Invalid Interpretation Code Chemistry S LABORATORYOrdered By: SYSTEM SYSTEM on 09-19-2022 Vancomycin trough [Mass/Vol] 22.8 ug/mL Invalid Interpretation Code 5.0 - 20.0 mcg/mL ADM SS Comment on above: Result Comment: read back by Reynaldo Gannon/ pharmacy Magnesium [Mass/Vol] 1.8 mg/dL Invalid Interpretation Code 1.6 - 2.4 mg/dL ADM SS Albumin BCP dye [Mass/Vol] 2.4 G/dL Invalid Interpretation Code 3.2 - 4.8 G/dL ADM SS Albumin/Globulin [Mass ratio] 0.7 {ratio} Invalid Interpretation Code 0.9 - 1.6 ratio ADM SS ALP [Catalytic activity/Vol] 77 U/L Invalid Interpretation Code 38 - 126 U/L ADM SS ALT No additional P-5'-P [Catalytic activity/Vol] U/L 1 Invalid Interpretation Code 12 - 55 U/L ADM SS AST [Catalytic activity/Vol] 12 U/L Invalid Interpretation Code 8 - 34 U/L ADM SS Basophils (Bld) [#/Vol] 0.1 103/mcL Invalid Interpretation Code 0.0 - 0.3 10^3/mcL Workflow SS Basophils/100 WBC (Bld) 1.0 % Invalid Interpretation Code 0.0 - 2.5 % AH Workflow SS Bilirubin [Mass/Vol] 0.70 mg/dL Invalid Interpretation Code 0.20 - 1.20 mg/dL ADM SS Comment on above: Interpretive Data: U se of this assay is not recommended for patients undergoing treatment with eltrombopag due to the potential for falsely elevated results. Calcium [Mass/Vol] 8.0 mg/dL Invalid Interpretation Code 8.7 - 10.4 mg/dL ADM SS Chloride [Moles/Vol] 107 mmol/L Invalid Interpretation Code 98 - 110 mEq/L ADM SS CO2 [Moles/Vol] 28 mmol/L Invalid Interpretation Code 22 - 32 mEq/L ADM SS Creatinine [Mass/Vol] 1.25 mg/dL Invalid Interpretation Code 0.60 - 1.40 mg/dL ADM SS Electrolyte Balance 6.0 mEq/L Invalid Interpretation Code 4.0 - 15.0 mEq/L ADM SS Eosinophils (Bld) [#/Vol] 0.1 103/mcL Invalid Interpretation Code 0.0 - 0.7 10^3/mcL Workflow SS Eosinophils/100 WBC (Bld) 1.6 % Invalid Interpretation Code 0.0 - 6.0 % Workflow SS Erythrocyte distribution width (RBC) [Ratio] 13.9 % Invalid Interpretation Code 11.5 - 15.5 % Workflow SS GFR/1.73 sq M.predicted among blacks MDRD (S/P/Bld) [Vol rate/Area] ml/min/1.73sqm Invalid Interpretation Code ADM SS Comment on above: Interpretive Data: GFR Population mean for , Non- Americans Ages 20-29 = 116 mL/min/1.73 sq.m. Ages 30-39 = 107 mL/min/1.73 sq.m. Ages 40-49 = 99 mL/min/1.73 sq.m. Ages 50-59 = 93 mL/min/1.73 sq.m. Ages 60-69 = 85 mL/min/1.73 sq.m. Ages 70+ = 75 mL/min/1.73 sq.m. Chronic Kidney Disease: Less than 60 mL/min/1.73 square meters End Stage Renal Disease: Less than 15 mL/min/1.73 square meters GFR/1.73 sq M.predicted among non-blacks MDRD (S/P/Bld) [Vol rate/Area] 60 ml/min/1.73sqm Invalid Interpretation Code ADM SS Comment on above: Interpretive Data: GFR Population mean for , Non- Americans Ages 20-29 = 116 mL/min/1.73 sq.m. Ages 30-39 = 107 mL/min/1.73 sq.m. Ages 40-49 = 99 mL/min/1.73 sq.m. Ages 50-59 = 93 mL/min/1.73 sq.m. Ages 60-69 = 85 mL/min/1.73 sq.m. Ages 70+ = 75 mL/min/1.73 sq.m. Chronic Kidney Disease: Less than 60 mL/min/1.73 square meters End Stage Renal Disease: Less than 15 mL/min/1.73 square meters Globulin 3.6 G/dL Invalid Interpretation Code 1.5 - 3.8 G/dL ADM SS Glucose [Mass/Vol] 134 mg/dL Invalid Interpretation Code 70 - 110 mg/dL ADM SS Hematocrit (Bld) [Volume fraction] 37.0 % Invalid Interpretation Code 40.0 - 52.0 % Workflow SS Hemoglobin (Bld) [Mass/Vol] 12.4 G/dL Invalid Interpretation Code 13.0 - 17.5 G/dL Workflow SS Lymphocytes (Bld) [#/Vol] 1.1 103/mcL Invalid Interpretation Code 0.9 - 4.3 10^3/mcL Workflow SS Lymphocytes/100 WBC (Bld) 14.5 % Invalid Interpretation Code 20.0 - 40.0 % Workflow SS MCH (RBC) [Entitic mass] 29.5 pg Invalid Interpretation Code 27.0 - 33.0 pg Workflow SS MCHC 33.6 G/dL Invalid Interpretation Code 32.0 - 36.0 G/dL Workflow SS MCV (RBC) [Entitic vol] 88.0 fL Invalid Interpretation Code 81.0 - 100.0 fL Workflow SS Monocytes (Bld) [#/Vol] 0.7 103/mcL Invalid Interpretation Code 0.1 - 1.4 10^3/mcL Workflow SS Monocytes/100 WBC (Bld) 9.3 % Invalid Interpretation Code 2.0 - 13.0 % Workflow SS Neutrophils (Bld) [#/Vol] 5.8 103/mcL Invalid Interpretation Code 2.3 - 8.1 10^3/mcL AH Workflow SS Neutrophils/100 WBC (Bld) 73.6 % Invalid Interpretation Code 50.0 - 75.0 % AH Workflow SS Platelet mean volume (Bld) [Entitic vol] 9.3 fL Invalid Interpretation Code 6.4 - 10.5 fL AH Workflow SS Platelets (Bld) [#/Vol] 193 103/mcL Invalid Interpretation Code 150 - 450 10^3/mcL AH Workflow SS Potassium [Moles/Vol] 3.6 mmol/L Invalid Interpretation Code 3.5 - 5.0 mEq/L AH ADM SS Protein [Mass/Vol] 6.0 G/dL Invalid Interpretation Code 5.7 - 8.2 G/dL AH ADM SS Comment on above: Interpretive Data: * *Note - New Reference Range in effect 19 RBC (Bld) [#/Vol] 4.21 106/mcL Invalid Interpretation Code 4.50 - 6.00 10^6/mcL AH Workflow SS Sodium [Moles/Vol] 141 mmol/L Invalid Interpretation Code 136 - 145 mEq/L ADM SS Urea nitrogen [Mass/Vol] 13.0 mg/dL Invalid Interpretation Code 8.0 - 22.0 mg/dL ADM SS Urea nitrogen/Creatinine [Mass ratio] 10.4 ratio Invalid Interpretation Code 10.0 - 22.0 ratio AH ADM SS WBC (Bld) [#/Vol] 7.9 103/mcL Invalid Interpretation Code 4.5 - 10.8 10^3/mcL Workflow SS LABORATORYOrdered By: Hedy Sepulveda on 09-19-2022 aPTT Coag (PPP) [Time] 61.4 s Invalid Interpretation Code 25.0 - 35.0 seconds Auto Coag SS Comment on above: Interpretive Data: F or Heparin anticoagulation therapy, the recommended therapeutic range is: 54-77 seconds (APTT Correlation with Anti-Xa therapeutic range of 0.3-0.7 units/ml). PLEASE REFERENCE THE PHARMACY PROTOCOL FOR DOSING. Heparin dose (APTT) Heparin IV (09/19/22 4:40 AM) Invalid Interpretation Code AH Auto Coag SS MGon 09-19-2022 Magnesium [Mass/Vol] 1.8 mg/dL Normal 1.6-2.4 [facility] ([place]) Comment on above: Performed By: #### M G, GFR, BMP #### [place] [id number] [place] [id number] [place] HEPATOBILIARY DUCT SYSTEM IMAGINGon 09-19-2022 NM HEPATOBILIARY DUCT SYSTEM IMAGING ORIGINAL EXAMINATION: HIDA09/19/2022 9:22 am TECHNIQUE: Approximately 9.8 millicuries Tc99m Mebrofenin was administered IV. Then, dynamic images of the abdomen were obtained in the anterior projection for 60 mins. Slow infusion of 1.8 mcg cholecystokinin was administered intravenously over 30 mins. Images were obtained in the anterior projection and regions of interest were drawn around the gallbladder and ejection fraction was calculated. COMPARISON: None HISTORY: Reason for Exam: infx FINDINGS: Prompt, homogenous uptake by the liver is noted with normal appearance of radiotracer excretion into the biliary system. Clearance of blood pool activity appears appropriate. Gallbladder and small bowel are visualized in appropriate time. No gallbladder emptying is seen after CCK administration. Normal value is >35% for CCK protocol. IMPRESSION: Lack of gallbladder emptying after CCK administration could be seen with biliary dyskinesia, chronic cholecystitis, cystic duct syndrome or sphincter of Oddi spasm. Interpreted by: Carlin Ramos MD Preliminary Report By: Carlin Ramos MD Electronically signed By Carlin Ramos MD Dictated Date: 09/19/2022 12:42:54 PM Prelim Date: 09/19/2022 12:44:31 PM Sign Date: 09/19/2022 12:44:31 PM Ordering Provider: CINDA FERRO Normal [facility] ([place]) RPRon 09-19-2022 Reagin Ab RPR Ql (S) Non-Reactive Normal Non-[place] ctiv e [facility] ([place]) Comment on above: Result Comment: The RPR test is a non-treponemal assay useful as an aid in the diagnosis of primary and secondary syphilis. It converts to positive generally within 2 weeks after the appearance of a lesion. This test is also useful for monitoring response to antibiotic therapy. A positive RPR screening test will be followed by the FTA ABS test. False positive RPR tests may occur in 1) patients with underlying autoimmune disorders, 2) elderly patients, 3) , and 4) other conditions with abnormal serum globulins. Performed By: #### H FP, CBC, ANEU, ADIFF #### [address] [address] VANCRon 09-19-2022 LDose Vancomycin: (random) See eMAR Normal [facility] ([place]) Comment on above: Performed By: #### M G, GFR, BMP #### [id number] [place] [address] 09-19-2022 LDose Vancomycin:(trough) See eMAR Normal [facility] ([place]) Comment on above: Performed By: #### H FP, CBC, ANEU, ADIFF #### [place] [address] Vancomycin Tr 22.8 mcg/mL Critically abnormal 5.0-20.0 [facility] ([place]) Comment on above: Result Comment: read back by Reynaldo Gannon/ pharmacy Performed By: #### H FP, CBC, ANEU, ADIFF #### [place] [address] .Auto Diffon 09-18-2022 Basophil, Absolute 0.1 10 3/mcL Normal 0.0-0.3 [facility] ([place]) Comment on above: Performed By: #### H FP, CBC, ANEU, ADIFF #### [place] [address] Basophils/100 WBC (Bld) 0.7 % Normal 0.0-2.5 A [facility] ([place]) Comment on above: Performed By: #### H FP, CBC, ANEU, ADIFF #### [place] [address] Eosinophil, Absolute 0.1 10 3/mcL Normal 0.0-0.7 [facility] ([place]) Comment on above: Performed By: #### H FP, CBC, ANEU, ADIFF #### [place] [address] Eosinophils/100 WBC (Bld) 0.8 % Normal 0.0-6.0 [facility] ([place]) Comment on above: Performed By: #### H FP, CBC, ANEU, ADIFF #### [place] [address] Lymphocyte, Absolute 1.7 10 3/mcL Normal 0.9-4.3 [facility] ([place]) Comment on above: Performed By: #### H FP, CBC, ANEU, ADIFF #### [address] [address] Lymphocytes/100 WBC (Bld) 17.1 % Low 20.0-40.0 [facility] ([place]) Comment on above: Performed By: #### H FP, CBC, ANEU, ADIFF #### [address] [address] Monocyte, Absolute 0.9 10 3/mcL Normal 0.1-1.4 [facility] ([place] Comment on above: Performed By: #### H FP, CBC, ANEU, ADIFF #### [address] [address] Monocytes/100 WBC (Bld) 9.0 % Normal 2.0-13.0 A [facility] ([place]) Comment on above: Performed By: #### H FP, CBC, ANEU, ADIFF #### [address] [address] Neutrophils/100 WBC (Bld) 72.4 % Normal 50.0-75.0 [facility] ([place]) Comment on above: Performed By: #### H FP, CBC, ANEU, ADIFF #### [address] [address] .GFRon 09-18-2022 GFR 54 ml/min/1.73sqm Normal [facility] ([place]) Comment on above: Result Comment: GFR Population mean for , Non- Americans Ages 20-29 = 116 mL/min/1.73 sq.m. Ages 30-39 = 107 mL/min/1.73 sq.m. Ages 40-49 = 99 mL/min/1.73 sq.m. Ages 50-59 = 93 mL/min/1.73 sq.m. Ages 60-69 = 85 mL/min/1.73 sq.m. Ages 70+ = 75 mL/min/1.73 sq.m. Chronic Kidney Disease: Less than 60 mL/min/1.73 square meters End Stage Renal Disease: Less than 15 mL/min/1.73 square meters Performed By: #### M G, GFR, BMP #### [address] [address] GFR Non- 44 ml/min/1.73sqm Normal [facility] ([place] Comment on above: Result Comment: GFR Population mean for , Non- Americans Ages 20-29 = 116 mL/min/1.73 sq.m. Ages 30-39 = 107 mL/min/1.73 sq.m. Ages 40-49 = 99 mL/min/1.73 sq.m. Ages 50-59 = 93 mL/min/1.73 sq.m. Ages 60-69 = 85 mL/min/1.73 sq.m. Ages 70+ = 75 mL/min/1.73 sq.m. Chronic Kidney Disease: Less than 60 mL/min/1.73 square meters End Stage Renal Disease: Less than 15 mL/min/1.73 square meters Performed By: #### Diamond Ortega, GFR, BMP #### [address] [address] GFR 50 ml/min/1.73sqm Normal [facility] ([place] Comment on above: Result Comment: GFR Population mean for , Non- Americans Ages 20-29 = 116 mL/min/1.73 sq.m. Ages 30-39 = 107 mL/min/1.73 sq.m. Ages 40-49 = 99 mL/min/1.73 sq.m. Ages 50-59 = 93 mL/min/1.73 sq.m. Ages 60-69 = 85 mL/min/1.73 sq.m. Ages 70+ = 75 mL/min/1.73 sq.m. Chronic Kidney Disease: Less than 60 mL/min/1.73 square meters End Stage Renal Disease: Less than 15 mL/min/1.73 square meters Performed By: #### A PTT #### [address] [address] GFR Non- 41 ml/min/1.73sqm Normal [facility] ([place] Comment on above: Result Comment: GFR Population mean for , Non- Americans Ages 20-29 = 116 mL/min/1.73 sq.m. Ages 30-39 = 107 mL/min/1.73 sq.m. Ages 40-49 = 99 mL/min/1.73 sq.m. Ages 50-59 = 93 mL/min/1.73 sq.m. Ages 60-69 = 85 mL/min/1.73 sq.m. Ages 70+ = 75 mL/min/1.73 sq.m. Chronic Kidney Disease: Less than 60 mL/min/1.73 square meters End Stage Renal Disease: Less than 15 mL/min/1.73 square meters Performed By: #### A PTT #### [address] [address] .NEUABSon 09-18-2022 Neutrophil, Absolute 7.1 10 3/mcL Normal 2.3-8.1 [facility] ([place]) Comment on above: Performed By: #### H FP, CBC, ANEU, ADIFF #### [place] [address] APTTon 09-18-2022 aPTT Coag (Bld) [Time] 49.8 s High 25.0-35.0 [facility] ([place]) Comment on above: Result Comment: For Heparin anticoagulation therapy, the recommended therapeutic range is: 54-77 seconds (APTT Correlation with Anti-Xa therapeutic range of 0.3-0.7 units/ml). PLEASE REFERENCE THE PHARMACY PROTOCOL FOR DOSING. Performed By: #### A PTT #### [place] [address] Heparin dose (APTT) Unknown Normal [facility] ([place]) Comment on above: Performed By: #### A PTT #### [address] [address] aPTT Coag (Bld) [Time] 46.7 s High 25.0-35.0 [facility] ([place] Comment on above: Result Comment: For Heparin anticoagulation therapy, the recommended therapeutic range is: 54-77 seconds (APTT Correlation with Anti-Xa therapeutic range of 0.3-0.7 units/ml). PLEASE REFERENCE THE PHARMACY PROTOCOL FOR DOSING. Performed By: #### A PTT #### [address] [address] Heparin dose (APTT) Heparin IV Normal [facility] ([place] Comment on above: Performed By: #### A PTT #### [place] [id number] aPTT Coag (Bld) [Time] 44.4 s High 25.0-35.0 [facility] ([place] Comment on above: Result Comment: For Heparin anticoagulation therapy, the recommended therapeutic range is: 54-77 seconds (APTT Correlation with Anti-Xa therapeutic range of 0.3-0.7 units/ml). PLEASE REFERENCE THE PHARMACY PROTOCOL FOR DOSING. Performed By: #### A PTT #### [place] [id number] Heparin dose (APTT) Heparin IV Normal [facility] ([place] Comment on above: Performed By: #### A PTT #### [place] [id number] aPTT Coag (Bld) [Time] 55.3 s High 25.0-35.0 [facility] ([place] Comment on above: Result Comment: For Heparin anticoagulation therapy, the recommended therapeutic range is: 54-77 seconds (APTT Correlation with Anti-Xa therapeutic range of 0.3-0.7 units/ml). PLEASE REFERENCE THE PHARMACY PROTOCOL FOR DOSING. Performed By: #### A PTT #### [place] [id number] Heparin dose (APTT) Heparin IV Normal [facility] ([place] Comment on above: Performed By: #### A PTT #### [address] [address] BMPon 09-18-2022 BUN/Creatinine Ratio 11.0 ratio Normal 10.0-22.0 [facility] ([place] Comment on above: Performed By: #### M G, GFR, BMP #### [address] [address] Calcium [Mass/Vol] 7.6 mg/dL Low 8.7-10.4 [facility] ([place] Comment on above: Performed By: #### M G, GFR, BMP #### [address] [address] Chloride [Moles/Vol] 102 mmol/L Normal 98-110 [facility] ([place] Comment on above: Performed By: #### Diamond Ortega, GFR, BMP #### [address] [address] CO2 [Moles/Vol] 31 mmol/L Normal 22-32 [facility] ([place]) Comment on above: Performed By: #### Diamond Ortega, GFR, BMP #### [address] [address] Creatinine [Mass/Vol] 1.63 mg/dL High 0.60-1.40 [facility] ([place]) Comment on above: Performed By: #### Diamond Ortega, GFR, BMP #### [address] [address] Electrolyte Balance 4.0 mEq/L Normal 4.0-15.0 [facility] ([place] Comment on above: Performed By: #### Diamond Ortega, GFR, BMP #### [address] [address] Glucose [Mass/Vol] 208 mg/dL High 70-110 [facility] ([place] Comment on above: Performed By: #### Diamond Ortega, GFR, BMP #### [address] [address] Potassium [Moles/Vol] 3.3 mmol/L Low 3.5-5.0 [facility] ([place] Comment on above: Performed By: #### Diamond Ortega, GFR, BMP #### [address] [address] Sodium [Moles/Vol] 137 mmol/L Normal 136-145 [facility] ([place] Comment on above: Performed By: #### Diamond G, GFR, BMP #### [address] [address] Urea nitrogen [Mass/Vol] 18.0 mg/dL Normal 8.0-22.0 [facility] ([place]) Comment on above: Performed By: #### Diamond G, GFR, BMP #### [address] [address] BUNon 09-18-2022 Urea nitrogen [Mass/Vol] 20.0 mg/dL Normal 8.0-22.0 [facility] ([place]) Comment on above: Performed By: #### A PTT #### [place] [address] CBCon 09-18-2022 Erythrocyte distribution width (RBC) [Ratio] 14.0 % Normal 11.5-15.5 [facility] ([place]) Comment on above: Performed By: #### H FP, CBC, ANEU, ADIFF #### [place] [address] Hematocrit (Bld) [Volume fraction] 35.6 % Low 40.0-52.0 [facility] ([place]) Comment on above: Performed By: #### H FP, CBC, ANEU, ADIFF #### [place] [address] Hgb 11.9 G/dL Low 13.0-17.5 [facility] ([place] Comment on above: Performed By: #### H FP, CBC, ANEU, ADIFF #### [place] [address] MCH (RBC) [Entitic mass] 29.4 pg Normal 27.0-33.0 [facility] ([place] Comment on above: Performed By: #### H FP, CBC, ANEU, ADIFF #### [place] [address] MCHC 33.3 G/dL Normal 32.0-36.0 [facility] ([place] Comment on above: Performed By: #### H FP, CBC, ANEU, ADIFF #### [place] [address] MCV (RBC) [Entitic vol] 88.3 fL Normal 81.0-100.0 A [facility] ([place] Comment on above: Performed By: #### H FP, CBC, ANEU, ADIFF #### [place] [address] Platelet 210 10 3/mcL Normal 150-450 [facility] ([place] Comment on above: Performed By: #### H FP, CBC, ANEU, ADIFF #### [place] [address] Platelet mean volume (Bld) [Entitic vol] 9.6 fL Normal 6.4-10.5 [facility] ([place]) Comment on above: Performed By: #### H FP, CBC, ANEU, ADIFF #### [place] [address] RBC 4.04 10 6/mcL Low 4.50-6.00 [facility] ([place] Comment on above: Performed By: #### H FP, CBC, ANEU, ADIFF #### [place] [address] WBC 9.7 10 3/mcL Normal 4.5-10.8 [facility] ([place]) Comment on above: Performed By: #### H FP, CBC, ANEU, ADIFF #### [place] [address] CREon 09-18-2022 Creatinine [Mass/Vol] 1.73 mg/dL High 0.60-1.40 [facility] ([place] Comment on above: Performed By: #### A PTT #### [place] [address] DRUGUon 09-18-2022 Amphetamine (u) Negative Normal Negative [facility] ([place] Comment on above: Performed By: #### A PTT #### [place] [address] Barbiturate (u) Negative Normal Negative [facility] ([place] Comment on above: Performed By: #### A PTT #### [place] [address] Benzodiazepine (u) Positive Abnormal Negative [facility] ([place] Comment on above: Performed By: #### A PTT #### [place] [address] Cannabinoid (u) Negative Normal Negative [facility] ([place] Comment on above: Performed By: #### A PTT #### [address] [address] Cocaine Ql (U) Positive Abnormal Negative [facility] ([place]) Comment on above: Performed By: #### A PTT #### [address] [address] Fentanyl (u) Positive Abnormal Negative [facility] ([place]) Comment on above: Result Comment: Test ing has been performed FOR MEDICAL PURPOSES ONLY. Performed By: #### A PTT #### [address] [address] Methadone Ql (U) Negative Normal Negative [facility] ([place]) Comment on above: Performed By: #### A PTT #### [place] [id number] Opiate (u) Negative Normal Negative [facility] ([place]) Comment on above: Performed By: #### A PTT #### [place] [id number] Oxycodone (u) Negative Normal Negative [facility] ([place]) Comment on above: Result Comment: Test ing has been performed FOR MEDICAL PURPOSES ONLY. Performed By: #### A PTT #### [address] [address] PCP (u) Negative Normal Negative [facility] ([place]) Comment on above: Performed By: #### A PTT #### [address] [address] Propoxyphene (u) Negative Normal Negative [facility] ([place]) Comment on above: Performed By: #### A PTT #### [address] [address] U pH Drug Scrn 6.0 Normal 5.0-8.0 [facility] ([place]) Comment on above: Performed By: #### A PTT #### [place] [id number] Urine Drugs screened: See Below Normal [facility] ([place] Comment on above: Result Comment: This drug screen is a presumptive screening only. No confirmation will be performed unless requested. Drugs screened include: Threshold Amphetamines/Methamphetamines 1,000 ng/mL Barbiturates 200 ng/mL Benzodiazepine metabolites 200 ng/mL Cannabinoids (THC metabolites) 50 ng/mL Benzoylecognine (Cocaine metab) 300 ng/mL Opiates 300 ng/mL Phencyclidine (PCP) 25 ng/mL Methadone 300 ng/mL Propoxyphene 300 ng/mL Fentanyl 1.0 ng/mL Oxycodone 100 ng/mL Testing has been performed FOR MEDICAL PURPOSES ONLY. Performed By: #### A PTT #### [place] [address] HEPACon 09-18-2022 Hep A IgM Ab Non-Reactive Normal Non-Reactiv [facility] ([place] Comment on above: Performed By: #### H FP, CBC, ANEU, ADIFF #### [place] [address] Hep A IgM Ab Int No serological evide nce of a current Hepatitis A infection. [facility] ([place]) Comment on above: Result Comment: See Interp Performed By: #### H FP, CBC, ANEU, ADIFF #### [place] [address] Hep B Core IgM Ab Non-Reactive Normal Non-Reacti v [facility] ([place] Comment on above: Performed By: #### H FP, CBC, ANEU, ADIFF #### [place] [address] Hep B Core IgM Ab Int Samples with a spenser ue < 0.80 Index are considered nonreactive (negative) for IgM antibodies to hepatitis B core antigen. [facility] ([place]) Comment on above: Result Comment: See Interp Performed By: #### H FP, CBC, ANEU, ADIFF #### [place] [address] Hep B Surf Ag Non-Reactive Normal Non-Reactiv [facility] ([place] Comment on above: Performed By: #### H FP, CBC, ANEU, ADIFF #### [place] [address] Hep C Ab Non-Reactive Normal Non-Reactiv [facility] ([place] Comment on above: Performed By: #### H FP, CBC, ANEU, ADIFF #### [place] [id number] Hep C Ab Int Nonreactive: Samples with a value < 0.80 are considered nonreactive (negative) for antibodies to HCV. Normal [facility] ([place] Comment on above: Result Comment: A ne gative test result does not exclude the possibility of exposure to or infection with HCV. HCV antibodies may be undetectable in some stages of the infection and in some clinical conditions. See Interp Performed By: #### H FP, CBC, ANEU, ADIFF #### [address] [address] HFPon 09-18-2022 Albumin Level 1.8 G/dL Low 3.2-4.8 [facility] ([place]) Comment on above: Performed By: #### M G, GFR, BMP #### [place] [address] Albumin/Globulin [Mass ratio] 0.6 {ratio} Low 0.9-1.6 [facility] ([place]) Comment on above: Performed By: #### M G, GFR, BMP #### [place] [id number] ALP [Catalytic activity/Vol] 75 U/L Normal 38-126 [facility] ([place]) Comment on above: Performed By: #### M G, GFR, BMP #### [place] [address] ALT/SGPT <7 Low 12-55 [facility] ([place] Comment on above: Performed By: #### Diamond G, GFR, BMP #### [place] [id number] AST [Catalytic activity/Vol] 10 U/L Normal 8-34 [facility] ([place] Comment on above: Performed By: #### Diamond G, GFR, BMP #### [place] [id number] Bili Direct 0.2 mg/dL Normal 0.0-0.4 [facility] ([place] Comment on above: Result Comment: Use of this assay is not recommended for patients undergoing treatment with eltrombopag due to the potential for falsely elevated results. Performed By: #### M G, GFR, BMP #### [place] [address] Bili Indirect 0.3 mg/dL Normal 0.1-10.0 [facility] ([place] Comment on above: Performed By: #### M G, GFR, BMP #### [place] [address] Bili Total 0.50 mg/dL Normal 0.20-1.20 [facility] ([place] Comment on above: Result Comment: Use of this assay is not recommended for patients undergoing treatment with eltrombopag due to the potential for falsely elevated results. Performed By: #### M G, GFR, BMP #### [place] [address] Globulin 3.1 G/dL Normal 1.5-3.8 [facility] ([place] Comment on above: Performed By: #### M G, GFR, BMP #### [place] [address] Total Protein 4.9 G/dL Low 5.7-8.2 [facility] ([place]) Comment on above: Result Comment: No te - New Reference Range in effect 19 Performed By: #### M G, GFR, BMP #### [place] [address] HIVon 09-18-2022 HIV 1/2 Ab Non-Reactive Normal Non-Reactiv e [facility] ([place]) Comment on above: Result Comment: Spec imen is negative for anti-HIV-1 and anti-HIV-2. Performed By: #### H FP, CBC, ANEU, ADIFF #### [place] [address] LABORATORYOrdered By: Josey Tate on 09-18-2022 LDose Vancomycin: (random) See eMAR (09/18/22 8:12 PM) Invalid Interpretation Code AH Chemistry S LABORATORYOrdered By: SYSTEM SYSTEM on 09-18-2022 Vancomycin [Mass/Vol] 20.7 mcg/mL Invalid Interpretation Code AH ADM SS Albumin BCP dye [Mass/Vol] 1.8 G/dL Invalid Interpretation Code 3.2 - 4.8 G/dL AH ADM SS Albumin/Globulin [Mass ratio] 0.6 {ratio} Invalid Interpretation Code 0.9 - 1.6 ratio AH ADM SS ALP [Catalytic activity/Vol] 75 U/L Invalid Interpretation Code 38 - 126 U/L AH ADM SS ALT No additional P-5'-P [Catalytic activity/Vol] U/L 1 Invalid Interpretation Code 12 - 55 U/L AH ADM SS AST [Catalytic activity/Vol] 10 U/L Invalid Interpretation Code 8 - 34 U/L ADM SS Bili Indirect 0.3 mg/dL Invalid Interpretation Code 0.1 - 10.0 mg/dL Chemistry S Bilirubin [Mass/Vol] 0.50 mg/dL Invalid Interpretation Code 0.20 - 1.20 mg/dL AH ADM SS Comment on above: Interpretive Data: U se of this assay is not recommended for patients undergoing treatment with eltrombopag due to the potential for falsely elevated results. Bilirubin.conjugated [Mass/Vol] 0.2 mg/dL Invalid Interpretation Code 0.0 - 0.4 mg/dL ADM SS Comment on above: Interpretive Data: U se of this assay is not recommended for patients undergoing treatment with eltrombopag due to the potential for falsely elevated results. Globulin 3.1 G/dL Invalid Interpretation Code 1.5 - 3.8 G/dL ADM SS Protein [Mass/Vol] 4.9 G/dL Invalid Interpretation Code 5.7 - 8.2 G/dL AH ADM SS Comment on above: Interpretive Data: * *Note - New Reference Range in effect 19 Calcium [Mass/Vol] 7.6 mg/dL Invalid Interpretation Code 8.7 - 10.4 mg/dL ADM SS Chloride [Moles/Vol] 102 mmol/L Invalid Interpretation Code 98 - 110 mEq/L ADM SS CO2 [Moles/Vol] 31 mmol/L Invalid Interpretation Code 22 - 32 mEq/L ADM SS Creatinine [Mass/Vol] 1.63 mg/dL Invalid Interpretation Code 0.60 - 1.40 mg/dL ADM SS Electrolyte Balance 4.0 mEq/L Invalid Interpretation Code 4.0 - 15.0 mEq/L ADM SS GFR/1.73 sq M.predicted among blacks MDRD (S/P/Bld) [Vol rate/Area] 54 ml/min/1.73sqm Invalid Interpretation Code ADM Comment on above: Interpretive Data: GFR Population mean for , Non- Americans Ages 20-29 = 116 mL/min/1.73 sq.m. Ages 30-39 = 107 mL/min/1.73 sq.m. Ages 40-49 = 99 mL/min/1.73 sq.m. Ages 50-59 = 93 mL/min/1.73 sq.m. Ages 60-69 = 85 mL/min/1.73 sq.m. Ages 70+ = 75 mL/min/1.73 sq.m. Chronic Kidney Disease: Less than 60 mL/min/1.73 square meters End Stage Renal Disease: Less than 15 mL/min/1.73 square meters GFR/1.73 sq M.predicted among non-blacks MDRD (S/P/Bld) [Vol rate/Area] 44 ml/min/1.73sqm Invalid Interpretation Code ADM Comment on above: Interpretive Data: GFR Population mean for , Non- Americans Ages 20-29 = 116 mL/min/1.73 sq.m. Ages 30-39 = 107 mL/min/1.73 sq.m. Ages 40-49 = 99 mL/min/1.73 sq.m. Ages 50-59 = 93 mL/min/1.73 sq.m. Ages 60-69 = 85 mL/min/1.73 sq.m. Ages 70+ = 75 mL/min/1.73 sq.m. Chronic Kidney Disease: Less than 60 mL/min/1.73 square meters End Stage Renal Disease: Less than 15 mL/min/1.73 square meters Glucose [Mass/Vol] 208 mg/dL Invalid Interpretation Code 70 - 110 mg/dL ADM SS Magnesium [Mass/Vol] 2.0 mg/dL Invalid Interpretation Code 1.6 - 2.4 mg/dL ADM SS Potassium [Moles/Vol] 3.3 mmol/L Invalid Interpretation Code 3.5 - 5.0 mEq/L ADM SS Sodium [Moles/Vol] 137 mmol/L Invalid Interpretation Code 136 - 145 mEq/L ADM SS Urea nitrogen [Mass/Vol] 18.0 mg/dL Invalid Interpretation Code 8.0 - 22.0 mg/dL AH ADM SS Urea nitrogen/Creatinine [Mass ratio] 11.0 ratio Invalid Interpretation Code 10.0 - 22.0 ratio AH ADM SS Basophils (Bld) [#/Vol] 0.1 103/mcL Invalid Interpretation Code 0.0 - 0.3 10^3/mcL AH Workflow SS Basophils/100 WBC (Bld) 0.7 % Invalid Interpretation Code 0.0 - 2.5 % AH Workflow SS Eosinophils (Bld) [#/Vol] 0.1 103/mcL Invalid Interpretation Code 0.0 - 0.7 10^3/mcL AH Workflow SS Eosinophils/100 WBC (Bld) 0.8 % Invalid Interpretation Code 0.0 - 6.0 % AH Workflow SS Erythrocyte distribution width (RBC) [Ratio] 14.0 % Invalid Interpretation Code 11.5 - 15.5 % AH Workflow SS Hematocrit (Bld) [Volume fraction] 35.6 % Invalid Interpretation Code 40.0 - 52.0 % AH Workflow SS Hemoglobin (Bld) [Mass/Vol] 11.9 G/dL Invalid Interpretation Code 13.0 - 17.5 G/dL AH Workflow SS Lymphocytes (Bld) [#/Vol] 1.7 103/mcL Invalid Interpretation Code 0.9 - 4.3 10^3/mcL AH Workflow SS Lymphocytes/100 WBC (Bld) 17.1 % Invalid Interpretation Code 20.0 - 40.0 % AH Workflow SS MCH (RBC) [Entitic mass] 29.4 pg Invalid Interpretation Code 27.0 - 33.0 pg AH Workflow SS MCHC 33.3 G/dL Invalid Interpretation Code 32.0 - 36.0 G/dL AH Workflow SS MCV (RBC) [Entitic vol] 88.3 fL Invalid Interpretation Code 81.0 - 100.0 fL AH Workflow SS Monocytes (Bld) [#/Vol] 0.9 103/mcL Invalid Interpretation Code 0.1 - 1.4 10^3/mcL AH Workflow SS Monocytes/100 WBC (Bld) 9.0 % Invalid Interpretation Code 2.0 - 13.0 % AH Workflow SS Neutrophils (Bld) [#/Vol] 7.1 103/mcL Invalid Interpretation Code 2.3 - 8.1 10^3/mcL AH Workflow SS Neutrophils/100 WBC (Bld) 72.4 % Invalid Interpretation Code 50.0 - 75.0 % AH Workflow SS Platelet mean volume (Bld) [Entitic vol] 9.6 fL Invalid Interpretation Code 6.4 - 10.5 fL AH Workflow SS Platelets (Bld) [#/Vol] 210 103/mcL Invalid Interpretation Code 150 - 450 10^3/mcL AH Workflow SS RBC (Bld) [#/Vol] 4.04 106/mcL Invalid Interpretation Code 4.50 - 6.00 10^6/mcL AH Workflow SS Vancomycin trough [Mass/Vol] 19.0 ug/mL Invalid Interpretation Code 5.0 - 20.0 mcg/mL AH ADM SS WBC (Bld) [#/Vol] 9.7 103/mcL Invalid Interpretation Code 4.5 - 10.8 10^3/mcL AH Workflow SS LABORATORYOrdered By: Kenzie carmona on 09-18-2022 Amphetamines Screen Ql (U) Negative *NA* (09/18/22 2:17 PM) Invalid Interpretation Code Negative AH ADM SS Barbiturates Screen Ql (U) Negative *NA* (09/18/22 2:17 PM) Invalid Interpretation Code Negative AH ADM SS Benzodiazepines Ql (U) Positive *ABN* (09/18/22 2:17 PM) Invalid Interpretation Code Negative AH ADM SS Benzoylecgonine Screen Ql (U) Positive *ABN* (09/18/22 2:17 PM) Invalid Interpretation Code Negative AH ADM SS Cannabinoids Screen Ql (U) Negative *NA* (09/18/22 2:17 PM) Invalid Interpretation Code Negative AH ADM SS fentaNYL Screen Ql (U) Positive 2 *ABN* (09/18/22 2:17 PM) Invalid Interpretation Code Negative AH ADM SS Comment on above: Interpretive Data: T esting has been performed FOR MEDICAL PURPOSES ONLY. Methadone Screen Ql (U) Negative *NA* (09/18/22 2:17 PM) Invalid Interpretation Code Negative AH ADM SS Opiates Screen Ql (U) Negative *NA* (09/18/22 2:17 PM) Invalid Interpretation Code Negative AH ADM SS oxyCODONE Ql (U) Negative 3 *NA* (09/18/22 2:17 PM) Invalid Interpretation Code Negative AH ADM SS Comment on above: Interpretive Data: T esting has been performed FOR MEDICAL PURPOSES ONLY. pH (U) 6.0 [pH] Invalid Interpretation Code 5.0 - 8.0 Chemistry S Phencyclidine Ql (U) Negative *NA* (09/18/22 2:17 PM) Invalid Interpretation Code Negative AH ADM SS Propoxyphene Screen Ql (U) Negative *NA* (09/18/22 2:17 PM) Invalid Interpretation Code Negative AH ADM SS Urine Drugs screened: See Below 29 (09/18/22 2:17 PM) Invalid Interpretation Code AH Chemistry S Comment on above: Interpretive Data: T his drug screen is a presumptive screening only. No confirmation will be performed unless requested. Drugs screened include: Threshold Amphetamines/Methamphetamines 1,000 ng/mL Barbiturates 200 ng/mL Benzodiazepine metabolites 200 ng/mL Cannabinoids (THC metabolites) 50 ng/mL Benzoylecognine (Cocaine metab) 300 ng/mL Opiates 300 ng/mL Phencyclidine (PCP) 25 ng/mL Methadone 300 ng/mL Propoxyphene 300 ng/mL Fentanyl 1.0 ng/mL Oxycodone 100 ng/mL Testing has been performed FOR MEDICAL PURPOSES ONLY. LABORATORYOrdered By: Woodrow Headley on 09-18-2022 HAV IgM IA Ql Non-Reactive (09/18/22 3:57 AM) Invalid Interpretation Code Non-Reactiv e ADM SS HAV IgM IA Ql No serological evide nce of a current Hepatitis A infection. Invalid Interpretation Code Chemistry S HBV core IgM IA Ql Non-Reactive (09/18/22 3:57 AM) Invalid Interpretation Code Non-Reactiv e ADM SS HBV core IgM IA Ql Samples with a value < 0.80 Index are considered nonreactive (negative) for IgM antibodies to hepatitis B core antigen. Invalid Interpretation Code Chemistry S HBV surface Ag IA Ql Non-Reactive (09/18/22 3:57 AM) Invalid Interpretation Code Non-Reactiv e AH ADM SS HCV Ab IA Ql Non-Reactive (09/18/22 3:57 AM) Invalid Interpretation Code Non-Reactiv e AH ADM SS HCV Ab IA Ql Nonreactive: Samples with a value < 0.80 are considered nonreactive (negative) for antibodies to HCV.A negative test result does not exclude the possibility of exposure to or infection with HCV. HCV antibodies may be undetectable in some stages of the infection and in some clinical conditions. Invalid Interpretation Code Chemistry S HIV 1+2 Ab IA Ql Negative Invalid Interpretation Code Chemistry S HIV 1/2 Ab Non-Reactive (09/18/22 3:57 AM) Invalid Interpretation Code Non-Reactiv e AH ADM SS LDose Vancomycin:(trough) See eMAR (09/18/22 3:57 AM) Invalid Interpretation Code AH Chemistry S LABORATORYOrdered By: Alma Avery on 09-18-2022 M. pneumoniae IgM IA Ql (S) Negative 31 (09/18/22 3:57 AM) Invalid Interpretation Code STAN Man Viro/Sero SS Comment on above: Interpretive Data: I NTERPRETATION OF MYCOPLASMA IgM: Negative: IgM to M. pneumoniae Absent, or at levels below the assay limit of detection. Positive: IgM to M. pneumoniae Present. Invalid: Test results are invalid due to invalid internal control. Assay was performed in duplicate. Repeat testing is suggested if clinically indicated. LABORATORYOrdered By: James Morrow on 09-18-2022 Reagin Ab RPR Ql (S) Non-Reactive 30 (09/18/22 3:57 AM) Invalid Interpretation Code Non-Reactiv e STAN Elliott Viro/Sero SS Comment on above: Interpretive Data: T he RPR test is a non-treponemal assay useful as an aid in the diagnosis of primary and secondary syphilis. It converts to positive generally within 2 weeks after the appearance of a lesion. This test is also useful for monitoring response to antibiotic therapy. A positive RPR screening test will be followed by the FTA ABS test. False positive RPR tests may occur in 1) patients with underlying autoimmune disorders, 2) elderly patients, 3) , and 4) other conditions with abnormal serum globulins. MGon 09-18-2022 Magnesium [Mass/Vol] 2.0 mg/dL Normal 1.6-2.4 [facility] ([place]) Comment on above: Performed By: #### M G, GFR, BMP #### [facility] [address] [place] [address] MYCOon 09-18-2022 Mycoplasma IgM Negative Normal [facility] ([place]) Comment on above: Result Comment: INTE RPRETATION OF MYCOPLASMA IgM: Negative: IgM to M. pneumoniae Absent, or at levels below the assay limit of detection. Positive: IgM to M. pneumoniae Present. Invalid: Test results are invalid due to invalid internal control. Assay was performed in duplicate. Repeat testing is suggested if clinically indicated. Performed By: #### H FP, CBC, ANEU, ADIFF #### [address] [address] US ABDOMEN COMPLETE 2022 US ABDOMEN COMPLETE ORIGINAL EXAMINATION: COMPLETE ABDOMINAL ULTRASOUND 09/18/2022 9:30 am COMPARISON: None. HISTORY: ORDERING SYSTEM PROVIDED HISTORY: Reason for Exam: infection FINDINGS: LIVER: The liver is enlarged measuring 20.1 cm however demonstrates normal echogenicity without evidence of intrahepatic biliary ductal dilatation. There is a small 6 x 6 x 5 mm hypoechoic lesion likely a cyst. Small benign 1.1 cm calcification is seen within the liver. BILIARY SYSTEM: Gallbladder is unremarkable without evidence of pericholecystic fluid, wall thickening or stones. Negative sonographic Olivera's sign. Common bile duct is dilated measuring 9 mm. KIDNEYS: The kidneys are unremarkable in appearance without evidence of hydronephrosis. A simple left renal cyst is seen measuring 1.4 x 1.2 x 1.2 cm. PANCREAS: Visualized portions of the pancreas are unremarkable. The tail of the pancreas is limited secondary to overlying bowel gas. SPLEEN: The spleen is unremarkable in appearance. Spleen is within normal limits in size. IVC: The IVC is patent. AORTA: Aorta is patent without aneurysm. OTHER: No evidence of ascites. IMPRESSION: Dilated common bile duct without additional abnormalities seen of the gallbladder to suggest cholecystitis. Correlate with ALP levels to determine the need for further evaluation such as HIDA scan or MRCP. Hepatomegaly. Small likely 6 mm cyst. Given slightly indeterminate appearance consider follow-up ultrasound in 6-12 months to demonstrate stability. Simple left renal cyst measuring 1.4 cm. Interpreted by: Sheldon Ramos MD Preliminary Report By: Sheldon Ramos MD Electronically signed By Sheldon Ramos MD Dictated Date: 09/18/2022 11:20:55 AM Prelim Date: 09/18/2022 11:30:45 AM Sign Date: 09/18/2022 11:30:45 AM Ordering Provider: CINDA FERRO Normal [facility] ([place]) [facility] 09-18-2022 Vancomycin Lvl (random) 20.7 mcg/mL Normal [facility] ([place]) Comment on above: Performed By: #### M G, GFR, BMP #### [address] [address] [facility] 09-18-2022 Vancomycin Tr 19.0 mcg/mL Normal 5.0-20.0 [facility] ([place]) Comment on above: Performed By: #### H FP, CBC, ANEU, ADIFF #### [address] [address] LDose Vancomycin:(trough) See eMAR Normal [facility] ([place]) Comment on above: Performed By: #### H FP, CBC, ANEU, ADIFF #### [address] [address] .Auto Diffon 09-17-2022 Basophil, Absolute 0.2 10 3/mcL Normal 0.0-0.3 [facility] ([place]) Comment on above: Performed By: #### M G, GFR, BMP #### [address] [address] Basophils/100 WBC (Bld) 1.2 % Normal 0.0-2.5 A [facility] ([place]) Comment on above: Performed By: #### M Jordan, GFR, BMP #### [address] [address] Eosinophil, Absolute 0.1 10 3/mcL Normal 0.0-0.7 [facility] ([place]) Comment on above: Performed By: #### Diamond G, GFR, BMP #### [address] [address] Eosinophils/100 WBC (Bld) 0.4 % Normal 0.0-6.0 [facility] ([place]) Comment on above: Performed By: #### M G, GFR, BMP #### [address] [address] Lymphocyte, Absolute 2.1 10 3/mcL Normal 0.9-4.3 [facility] ([place]) Comment on above: Performed By: #### M G, GFR, BMP #### [address] [address] Lymphocytes/100 WBC (Bld) 14.2 % Low 20.0-40.0 [facility] ([place]) Comment on above: Performed By: #### Diamond G, GFR, BMP #### [address] [address] Monocyte, Absolute 1.2 10 3/mcL Normal 0.1-1.4 [facility] ([place]) Comment on above: Performed By: #### Diamond Ortega, GFR, BMP #### [address] [address] Monocytes/100 WBC (Bld) 8.3 % Normal 2.0-13.0 A [facility] ([place]) Comment on above: Performed By: #### Diamond Ortega, GFR, BMP #### [address] [address] Neutrophils/100 WBC (Bld) 75.9 % High 50.0-75.0 [facility] ([place]) Comment on above: Performed By: #### Diamond Ortega, GFR, BMP #### [address] [address] Basophil, Absolute 0.1 10 3/mcL Normal 0.0-0.3 [facility] ([place]) Comment on above: Performed By: #### Diamond Ortega, GFR, BMP #### [address] [address] Basophils/100 WBC (Bld) 0.5 % Normal 0.0-2.5 A [facility] ([place]) Comment on above: Performed By: #### Diamond Ortega, GFR, BMP #### [address] [address] Eosinophil, Absolute 0.0 10 3/mcL Normal 0.0-0.7 [facility] ([place]) Comment on above: Performed By: #### Diamond Ortega, GFR, BMP #### [address] [address] Eosinophils/100 WBC (Bld) 0.3 % Normal 0.0-6.0 [facility] ([place]) Comment on above: Performed By: #### Diamond Ortega, GFR, BMP #### [address] [address] Lymphocyte, Absolute 2.0 10 3/mcL Normal 0.9-4.3 [facility] ([place]) Comment on above: Performed By: #### M G, GFR, BMP #### [address] [address] Lymphocytes/100 WBC (Bld) 13.5 % Low 20.0-40.0 [facility] ([place]) Comment on above: Performed By: #### M G, GFR, BMP #### [address] [address] Monocyte, Absolute 1.0 10 3/mcL Normal 0.1-1.4 [facility] ([place] Comment on above: Performed By: #### M G, GFR, BMP #### [address] [address] Monocytes/100 WBC (Bld) 6.7 % Normal 2.0-13.0 A [facility] ([place]) Comment on above: Performed By: #### Diamond G, GFR, BMP #### [address] [address] Neutrophils/100 WBC (Bld) 79.0 % High 50.0-75.0 [facility] ([place]) Comment on above: Performed By: #### Diamond G, GFR, BMP #### [address] [address] .GFRon 09-17-2022 GFR 44 ml/min/1.73sqm Normal [facility] ([place]) Comment on above: Result Comment: GFR Population mean for , Non- Americans Ages 20-29 = 116 mL/min/1.73 sq.m. Ages 30-39 = 107 mL/min/1.73 sq.m. Ages 40-49 = 99 mL/min/1.73 sq.m. Ages 50-59 = 93 mL/min/1.73 sq.m. Ages 60-69 = 85 mL/min/1.73 sq.m. Ages 70+ = 75 mL/min/1.73 sq.m. Chronic Kidney Disease: Less than 60 mL/min/1.73 square meters End Stage Renal Disease: Less than 15 mL/min/1.73 square meters Performed By: #### A PTT #### [address] [address] GFR Non- 37 ml/min/1.73sqm Normal [facility] ([place]) Comment on above: Result Comment: GFR Population mean for , Non- Americans Ages 20-29 = 116 mL/min/1.73 sq.m. Ages 30-39 = 107 mL/min/1.73 sq.m. Ages 40-49 = 99 mL/min/1.73 sq.m. Ages 50-59 = 93 mL/min/1.73 sq.m. Ages 60-69 = 85 mL/min/1.73 sq.m. Ages 70+ = 75 mL/min/1.73 sq.m. Chronic Kidney Disease: Less than 60 mL/min/1.73 square meters End Stage Renal Disease: Less than 15 mL/min/1.73 square meters Performed By: #### A PTT #### [address] [address] GFR 52 ml/min/1.73sqm Normal [facility] ([place]) Comment on above: Result Comment: GFR Population mean for , Non- Americans Ages 20-29 = 116 mL/min/1.73 sq.m. Ages 30-39 = 107 mL/min/1.73 sq.m. Ages 40-49 = 99 mL/min/1.73 sq.m. Ages 50-59 = 93 mL/min/1.73 sq.m. Ages 60-69 = 85 mL/min/1.73 sq.m. Ages 70+ = 75 mL/min/1.73 sq.m. Chronic Kidney Disease: Less than 60 mL/min/1.73 square meters End Stage Renal Disease: Less than 15 mL/min/1.73 square meters Performed By: #### H FP, CBC, ANEU, ADIFF #### [address] [address] GFR Non- 43 ml/min/1.73sqm Normal [facility] ([place]) Comment on above: Result Comment: GFR Population mean for , Non- Americans Ages 20-29 = 116 mL/min/1.73 sq.m. Ages 30-39 = 107 mL/min/1.73 sq.m. Ages 40-49 = 99 mL/min/1.73 sq.m. Ages 50-59 = 93 mL/min/1.73 sq.m. Ages 60-69 = 85 mL/min/1.73 sq.m. Ages 70+ = 75 mL/min/1.73 sq.m. Chronic Kidney Disease: Less than 60 mL/min/1.73 square meters End Stage Renal Disease: Less than 15 mL/min/1.73 square meters Performed By: #### H FP, CBC, ANEU, ADIFF #### [place] [address] .NEUABSon 09-17-2022 Neutrophil, Absolute 11.2 10 3/mcL High 2.3-8.1 A [facility] ([place]) Comment on above: Performed By: #### M G, GFR, BMP #### [place] [address] Neutrophil, Absolute 11.5 10 3/mcL High 2.3-8.1 A [facility] ([place]) Comment on above: Performed By: #### M G, GFR, BMP #### [place] [address] APTTon 09-17-2022 aPTT Coag (Bld) [Time] 38.4 s High 25.0-35.0 [facility] ([place]) Comment on above: Result Comment: For Heparin anticoagulation therapy, the recommended therapeutic range is: 54-77 seconds (APTT Correlation with Anti-Xa therapeutic range of 0.3-0.7 units/ml). PLEASE REFERENCE THE PHARMACY PROTOCOL FOR DOSING. Performed By: #### M G, GFR, BMP #### [place] [address] Heparin dose (APTT) Heparin IV Normal [facility] ([place]) Comment on above: Performed By: #### M G, GFR, BMP #### [place] [address] BGon 09-17-2022 Barometric Pressure 699 mmHg Normal [facility] ([place]) Comment on above: Performed By: #### H FP, CBC, ANEU, ADIFF #### [place] [address] Base excess Calc (Bld) [Moles/Vol] 0.9 mmol/L Normal [facility] ([place]) Comment on above: Performed By: #### H FP, CBC, ANEU, ADIFF #### [address] [address] CO2 [Moles/Vol] 26.8 mmol/L Normal 22.0-30.0 [facility] ([place]) Comment on above: Performed By: #### H FP, CBC, ANEU, ADIFF #### [place] [id number] HCO3 (Bld) [Moles/Vol] 25.6 mmol/L Normal 21.0-29.0 A [facility] ([place]) Comment on above: Performed By: #### H FP, CBC, ANEU, ADIFF #### [address] [address] Oxygen (Bld) [Partial pressure] 166.0 mm[Hg] High 74.0-108.0 [facility] ([place]) Comment on above: Performed By: #### H FP, CBC, ANEU, ADIFF #### [address] [address] Oxygen saturation in Blood 99.6 % High 92.0-96.0 [facility] ([place]) Comment on above: Performed By: #### H FP, CBC, ANEU, ADIFF #### [address] [address] pCO2 41.0 mmHg Normal 32.0-46.0 [facility] ([place]) Comment on above: Performed By: #### H FP, CBC, ANEU, ADIFF #### [address] [address] pH (Bld) 7.413 [pH] Normal 7.380-7.460 [facility] ([place]) Comment on above: Performed By: #### H FP, CBC, ANEU, ADIFF #### [address] [address] BMPon 09-17-2022 BUN/Creatinine Ratio 9.9 ratio Low 10.0-22.0 [facility] ([place] Comment on above: Performed By: #### A PTT #### [address] [address] Calcium [Mass/Vol] 8.5 mg/dL Low 8.7-10.4 [facility] ([place] Comment on above: Performed By: #### A PTT #### [address] [address] Chloride [Moles/Vol] 102 mmol/L Normal 98-110 [facility] ([place] Comment on above: Performed By: #### A PTT #### [address] [address] CO2 [Moles/Vol] 30 mmol/L Normal 22-32 [facility] ([place]) Comment on above: Performed By: #### A PTT #### [address] [address] Creatinine [Mass/Vol] 1.92 mg/dL High 0.60-1.40 [facility] ([place]) Comment on above: Performed By: #### A PTT #### [address] [address] Electrolyte Balance 7.0 mEq/L Normal 4.0-15.0 [facility] ([place]) Comment on above: Performed By: #### A PTT #### [address] [address] Glucose [Mass/Vol] 187 mg/dL High 70-110 [facility] ([place] Comment on above: Performed By: #### A PTT #### [address] [address] Potassium [Moles/Vol] 3.7 mmol/L Normal 3.5-5.0 [facility] ([place] Comment on above: Performed By: #### A PTT #### [address] [address] Sodium [Moles/Vol] 139 mmol/L Normal 136-145 [facility] ([place] Comment on above: Performed By: #### A PTT #### [place] [id number] Urea nitrogen [Mass/Vol] 19.0 mg/dL Normal 8.0-22.0 [facility] ([place]) Comment on above: Performed By: #### A PTT #### [address] [address] BUN/Creatinine Ratio 9.6 ratio Low 10.0-22.0 [facility] ([place] Comment on above: Performed By: #### H FP, CBC, ANEU, ADIFF #### [address] [address] Calcium [Mass/Vol] 8.4 mg/dL Low 8.7-10.4 [facility] ([place] Comment on above: Performed By: #### H FP, CBC, ANEU, ADIFF #### [address] [address] Chloride [Moles/Vol] 106 mmol/L Normal 98-110 [facility] ([place] Comment on above: Performed By: #### H FP, CBC, ANEU, ADIFF #### [address] [address] CO2 [Moles/Vol] 32 mmol/L Normal 22-32 [facility] ([place]) Comment on above: Performed By: #### H FP, CBC, ANEU, ADIFF #### [address] [address] Creatinine [Mass/Vol] 1.66 mg/dL High 0.60-1.40 [facility] ([place]) Comment on above: Performed By: #### H FP, CBC, ANEU, ADIFF #### [address] [address] Electrolyte Balance 3.0 mEq/L Low 4.0-15.0 [facility] ([place]) Comment on above: Performed By: #### H FP, CBC, ANEU, ADIFF #### [address] [address] Glucose [Mass/Vol] 116 mg/dL High 70-110 [facility] ([place] Comment on above: Performed By: #### H FP, CBC, ANEU, ADIFF #### [address] [address] Potassium [Moles/Vol] 3.5 mmol/L Normal 3.5-5.0 [facility] ([place] Comment on above: Performed By: #### H FP, CBC, ANEU, ADIFF #### [place] [address] Sodium [Moles/Vol] 141 mmol/L Normal 136-145 [facility] ([place] Comment on above: Performed By: #### H FP, CBC, ANEU, ADIFF #### [place] [address] Urea nitrogen [Mass/Vol] 16.0 mg/dL Normal 8.0-22.0 [facility] ([place]) Comment on above: Performed By: #### H FP, CBC, ANEU, ADIFF #### [place] [address] CBCon 09-17-2022 Erythrocyte distribution width (RBC) [Ratio] 14.2 % Normal 11.5-15.5 [facility] ([place] Comment on above: Performed By: #### M G, GFR, BMP #### [place] [address] Hematocrit (Bld) [Volume fraction] 38.4 % Low 40.0-52.0 [facility] ([place]) Comment on above: Performed By: #### M G, GFR, BMP #### [place] [address] Hgb 12.5 G/dL Low 13.0-17.5 [facility] ([place]) Comment on above: Performed By: #### M G, GFR, BMP #### [place] [address] MCH (RBC) [Entitic mass] 28.8 pg Normal 27.0-33.0 [facility] ([place] Comment on above: Performed By: #### M G, GFR, BMP #### [place] [id number] MCHC 32.5 G/dL Normal 32.0-36.0 [facility] ([place]) Comment on above: Performed By: #### M G, GFR, BMP #### [address] [address] MCV (RBC) [Entitic vol] 88.3 fL Normal 81.0-100.0 A [facility] ([place]) Comment on above: Performed By: #### Diamond Ortega, GFR, BMP #### [address] [address] Platelet 271 10 3/mcL Normal 150-450 [facility] ([place]) Comment on above: Performed By: #### M Jordan, GFR, BMP #### [address] [address] Platelet mean volume (Bld) [Entitic vol] 9.7 fL Normal 6.4-10.5 [facility] ([place]) Comment on above: Performed By: #### Diamond Ortega, GFR, BMP #### [address] [address] RBC 4.34 10 6/mcL Low 4.50-6.00 [facility] ([place] Comment on above: Performed By: #### Diamond Ortega, GFR, BMP #### [address] [address] WBC 14.8 10 3/mcL High 4.5-10.8 [facility] ([place] Comment on above: Performed By: #### Diamond Ortega, GFR, BMP #### [address] [address] Erythrocyte distribution width (RBC) [Ratio] 13.7 % Normal 11.5-15.5 [facility] ([place] Comment on above: Performed By: #### Diamond Ortega, GFR, BMP #### [address] [address] Hematocrit (Bld) [Volume fraction] 38.3 % Low 40.0-52.0 [facility] ([place] Comment on above: Performed By: #### Diamond Ortega, GFR, BMP #### [address] [address] Hgb 12.7 G/dL Low 13.0-17.5 [facility] ([place] Comment on above: Performed By: #### Diamond Ortega, GFR, BMP #### [address] [address] MCH (RBC) [Entitic mass] 29.0 pg Normal 27.0-33.0 [facility] ([place] Comment on above: Performed By: #### Diamond Ortega, GFR, BMP #### [address] [address] MCHC 33.0 G/dL Normal 32.0-36.0 [facility] ([place] Comment on above: Performed By: #### Diamond Ortega, GFR, BMP #### [address] [address] MCV (RBC) [Entitic vol] 87.9 fL Normal 81.0-100.0 A [facility] ([place]) Comment on above: Performed By: #### Diamond Ortega, GFR, BMP #### [address] [address] Platelet 305 10 3/mcL Normal 150-450 [facility] ([place] Comment on above: Performed By: #### Diamond Ortega, GFR, BMP #### [address] [address] Platelet mean volume (Bld) [Entitic vol] 9.8 fL Normal 6.4-10.5 [facility] ([place] Comment on above: Performed By: #### Diamond Ortega, GFR, BMP #### [address] [address] RBC 4.36 10 6/mcL Low 4.50-6.00 [facility] ([place] Comment on above: Performed By: #### Diamond Ortega, GFR, BMP #### [address] [address] WBC 14.5 10 3/mcL High 4.5-10.8 [facility] ([place] Comment on above: Performed By: #### Diamond Ortega, GFR, BMP #### [address] [address] DRUGSon 09-17-2022 Acetaminophen [Mass/Vol] ug/mL Low 10.0-20.0 [facility] ([place] Comment on above: Performed By: #### Diamond Ortega, GFR, BMP #### [place] [address] Ethanol Level <10.0 Normal [facility] ([place] Comment on above: Performed By: #### M Jordan GFR, BMP #### [place] [address] Salicylate Lvl (ds) <3.0 Low 10.0-25.0 [facility] ([place]) Comment on above: Performed By: #### Diamond Ortega GFR, BMP #### [place] [address] Serum Drugs screened: See Below Normal [facility] ([place]) Comment on above: Result Comment: This drug screen is a presumptive screening only. No confirmation will be performed unless requested. Drugs included in the ER serum drug screen are: Threshold Ethanol 10.0 mg/dL Salicylate 2.0 mg/dl Acetaminophen 2.0 mcg/mL Testing has been performed FOR MEDICAL PURPOSES ONLY. Performed By: #### M Jordan GFR, BMP #### [place] [address] LABORATORYOrdered By: Carmen Linn on 09-17-2022 LDose Vancomycin: (random) See eMAR (09/17/22 7:38 PM) Invalid Interpretation Code AH Chemistry S LABORATORYOrdered By: [employer] on 09-17-2022 Vancomycin [Mass/Vol] 27.2 mcg/mL Invalid Interpretation Code AH ADM SS LABORATORYOrdered By: Corey Adorno on 09-17-2022 INR Coag (PPP) [Relative time] 1.0 {INR} Invalid Interpretation Code AH Auto Coag SS Comment on above: Interpretive Data: Julian woods [employer] (CHEST, 1991, 102:312S-25S) recommended therapeutic range for oral anticoagulant therapy is: LOW RISK: Prophylaxis of venous thrombosis INR: 2.0-3.0 Treatment of pulmonary embolism 2.0-3.0 Prevention of systemic embolism 2.0-3.0 HIGH RISK: Mechanical prosthetic valves 2.5-3.5 PT Coag (PPP) [Time] 11.3 s Invalid Interpretation Code 9.0 - 14.8 seconds AH Auto Coag SS Comment on above: Interpretive Data: E ffective 07/15/08, Protime results may be affected by some antibiotics (i.e. Ciprofloxacin, Azithromycin, Bactrim) which may potentiate the action of oral anticoagulants, with further increases in Protime/INR. LABORATORYOrdered By: Christopher Vergara on 09-17-2022 Adenovirus DNA MADISON+non-probe Ql (Nph) Not Detected *NA* (09/17/22 12:55 PM) Invalid Interpretation Code Not Detected AH Auto Viro/Sero SS B. parapertussis [id number] DNA MADISON+non-probe Ql (Nph) Not Detected *NA* (09/17/22 12:55 PM) Invalid Interpretation Code Not Detected AH Auto Viro/Sero SS B. pertussis toxin promoter region MADISON+non-probe Ql (Nph) Not Detected *NA* (09/17/22 12:55 PM) Invalid Interpretation Code Not Detected AH Auto Viro/Sero SS C. pneumoniae DNA MADISON+non-probe Ql (Nph) Not Detected *NA* (09/17/22 12:55 PM) Invalid Interpretation Code Not Detected AH Auto Viro/Sero SS FLUAV RNA MADISON+non-probe Ql (Nph) Not Detected *NA* (09/17/22 12:55 PM) Invalid Interpretation Code Not Detected AH Auto Viro/Sero SS FLUBV RNA MADISON+non-probe Ql (Nph) Not Detected *NA* (09/17/22 12:55 PM) Invalid Interpretation Code Not Detected AH Auto Viro/Sero SS hMPV RNA MADISON+non-probe Ql (Nph) Not Detected *NA* (09/17/22 12:55 PM) Invalid Interpretation Code Not Detected AH Auto Viro/Sero SS M. pneumoniae DNA MADISON+non-probe Ql (Nph) Not Detected *NA* (09/17/22 12:55 PM) Invalid Interpretation Code Not Detected AH Auto Viro/Sero SS Parainfluenza virus 1 RNA MADISON+non-probe Ql (Nph) Not Detected *NA* (09/17/22 12:55 PM) Invalid Interpretation Code Not Detected AH Auto Viro/Sero SS Parainfluenza virus 2 RNA MADISON+non-probe Ql (Nph) Not Detected *NA* (09/17/22 12:55 PM) Invalid Interpretation Code Not Detected AH Auto Viro/Sero SS Parainfluenza virus 3 RNA MADISON+non-probe Ql (Nph) Not Detected *NA* (09/17/22 12:55 PM) Invalid Interpretation Code Not Detected AH Auto Viro/Sero SS Parainfluenza virus 4 RNA MADISON+non-probe Ql (Nph) Not Detected *NA* (09/17/22 12:55 PM) Invalid Interpretation Code Not Detected AH Auto Viro/Sero SS Rhinovirus+Enterovirus RNA MADISON+non-probe Ql (Nph) Not Detected *NA* (09/17/22 12:55 PM) Invalid Interpretation Code Not Detected AH Auto Viro/Sero SS RSV RNA MADISON+non-probe Ql (Nph) Not Detected *NA* (09/17/22 12:55 PM) Invalid Interpretation Code Not Detected AH Auto Viro/Sero SS SARS-CoV-2 (COVID-19) RNA MADISON+probe Ql (Resp) Not Detected 5 *NA* (09/17/22 12:55 PM) Invalid Interpretation Code Not Detected AH Auto Viro/Sero SS Comment on above: Interpretive Data: T his test is being used under the FDA EUA procedure. This assay has been validated in the [facility] for use with nasopharyngeal specimens in [facility]. If a non-validated specimen or test collection method was used, please interpret the results with caution, especially if the test result is negative. A positive test result for COVID-19 indicates that RNA from SARS-CoV-2 was detected, and the patient is infected with the virus and presumed to be contagious. Laboratory test results should always be considered in the context of clinical observations and epidemiological data in making a final diagnosis and patient management decisions. Patient management should follow current CDC guidelines. A negative test result for this test means that SARS-CoV-2 RNA was not present in the specimen above the limit of detection. However, a negative result does not rule out COVID-19 and should not be used as the sole basis for treatment or patient management decisions. A negative result does not exclude the possibility of COVID-19. When diagnostic testing is negative, the possibility of a false negative result should be considered in the context of a patient's recent exposures and the presence of clinical signs and symptoms consistent with COVID-19. The possibility of a false negative result should especially be considered if the patient s recent exposures or clinical presentation indicate that COVID-19 is likely, and diagnostic tests for other causes of illness (e.g., other respiratory illness) are negative. If COVID-19 is still suspected based on exposure history together with other clinical findings, re-testing should be considered by healthcare providers in consultation with public health authorities. LABORATORYOrdered By: Odalis Batista on 09-17-2022 Acetaminophen [Mass/Vol] mcg/mL Invalid Interpretation Code 10.0 - 20.0 mcg/mL ADM SS Ethanol [Mass/Vol] mg/dL Invalid Interpretation Code AH ADM SS Salicylates [Mass/Vol] mg/dL Invalid Interpretation Code 10.0 - 25.0 mg/dL ADM SS Serum Drugs screened: See Below 28 (09/17/22 10:29 AM) Invalid Interpretation Code Chemistry S Comment on above: Interpretive Data: T his drug screen is a presumptive screening only. No confirmation will be performed unless requested. Drugs included in the ER serum drug screen are: Threshold Ethanol 10.0 mg/dL Salicylate 2.0 mg/dl Acetaminophen 2.0 mcg/mL Testing has been performed FOR MEDICAL PURPOSES ONLY. LABORATORYOrdered By: Lucy Jack on 09-17-2022 Barometric Pressure 699 mm[Hg] Invalid Interpretation Code Auto Chem SS Base excess Calc (Bld) [Moles/Vol] 0.9 mmol/L Invalid Interpretation Code AH Auto Chem SS CO2 (Bld) [Partial pressure] 41.0 mm[Hg] Invalid Interpretation Code 32.0 - 46.0 mm Hg AH Auto Chem SS CO2 [Moles/Vol] 26.8 mmol/L Invalid Interpretation Code 22.0 - 30.0 mmol/L AH Auto Chem SS HCO3 (Bld) [Moles/Vol] 25.6 mmol/L Invalid Interpretation Code 21.0 - 29.0 mmol/L AH Auto Chem SS Oxygen (Bld) [Partial pressure] 166.0 mm[Hg] Invalid Interpretation Code 74.0 - 108.0 mm Hg AH Auto Chem SS pH (Bld) 7.413 [pH] Invalid Interpretation Code 7.380 - 7.460 AH Auto Chem SS LACon 09-17-2022 Lactic Acid Lvl 1.8 mmol/L Normal 0.2-2.0 [facility] ([place]) Comment on above: Performed By: #### H FP, CBC, ANEU, ADIFF #### [address] [address] MGon 09-17-2022 Magnesium [Mass/Vol] 2.4 mg/dL Normal 1.6-2.4 [facility] ([place]) Comment on above: Performed By: #### H FP, CBC, ANEU, ADIFF #### [place] [address] PROon 09-17-2022 INR Coag (PPP) [Relative time] 1.0 {INR} Normal [facility] ([place]) Comment on above: Result Comment: [employer] (CHEST, 1992, 102:312S-25S) recommended therapeutic range for oral anticoagulant therapy is: LOW RISK: Prophylaxis of venous thrombosis INR: 2.0-3.0 Treatment of pulmonary embolism 2.0-3.0 Prevention of systemic embolism 2.0-3.0 HIGH RISK: Mechanical prosthetic valves 2.5-3.5 Performed By: #### M G, GFR, BMP #### [place] [address] PT Coag (PPP) [Time] 11.3 s Normal 9.0-14.8 [facility] ([place]) Comment on above: Result Comment: Effe ctive 08/23/07, Protime results may be affected by some antibiotics (i.e. Ciprofloxacin, Azithromycin, Bactrim) which may potentiate the action of oral anticoagulants, with further increases in Protime/INR. Performed By: #### M G, GFR, BMP #### [place] [address] RESCVIDon 09-17-2022 Adenovirus Not detected Normal Not Detected [facility] ([place]) Comment on above: Performed By: #### M G, GFR, BMP #### [place] [address] Bordetella Parapertussis Not detected Normal Not Detected [facility] ([place] Comment on above: Performed By: #### M G, GFR, BMP #### [place] [address] Bordetella Pertussis Not detected Normal Not Detected [facility] ([place]) Comment on above: Performed By: #### M G, GFR, BMP #### [address] [address] Chlamydophila pneumoniae Not detected Normal Not Detected [facility] ([place]) Comment on above: Performed By: #### M G, GFR, BMP #### [place] [id number] Coronavirus 229E (Not COVID-19) Not detected Normal Not Detected [facility] ([place]) Comment on above: Performed By: #### M G, GFR, BMP #### [place] [address] Coronavirus HKU1 (Not COVID-19) Not detected Normal Not Detected [facility] ([place]) Comment on above: Performed By: #### M G, GFR, BMP #### [place] [address] Coronavirus NL63 (Not COVID-19) Not detected Normal Not Detected [facility] ([place]) Comment on above: Performed By: #### M G, GFR, BMP #### [place] [address] Coronavirus OC43 (Not COVID-19) Not detected Normal Not Detected [facility] ([place]) Comment on above: Performed By: #### M G, GFR, BMP #### [place] [address] Human Metapneumovirus Not detected Normal Not Detected [facility] ([place]) Comment on above: Performed By: #### M G, GFR, BMP #### [place] [address] Influenza A Not detected Normal Not Detected [facility] ([place]) Comment on above: Performed By: #### M G, GFR, BMP #### [place] [id number] Influenza B Not detected Normal Not Detected [facility] ([place]) Comment on above: Performed By: #### M G, GFR, BMP #### [address] [address] Mycoplasma pneumoniae Not detected Normal Not Detected [facility] ([place]) Comment on above: Performed By: #### M G, GFR, BMP #### [address] [address] Parainfluenza 1 Not detected Normal Not Detected [facility] ([place]) Comment on above: Performed By: #### M G, GFR, BMP #### [facility] [address] [place] [address] Parainfluenza 2 Not detected Normal Not Detected [facility] ([place]) Comment on above: Performed By: #### M G, GFR, BMP #### [facility] [address] [place] [address] Parainfluenza 3 Not detected Normal Not Detected [facility] ([place]) Comment on above: Performed By: #### M G, GFR, BMP #### [place] [address] Parainfluenza 4 Not detected Normal Not Detected [facility] ([place]) Comment on above: Performed By: #### M G, GFR, BMP #### [place] [address] Respiratory Syncytial Virus Not detected Normal Not Detected [facility] ([place]) Comment on above: Performed By: #### M G, GFR, BMP #### [place] [address] Rhinovirus/Enterovirus Not detected Normal Not Detected [facility] ([place]) Comment on above: Performed By: #### M G, GFR, BMP #### [place] [address] SARS-CoV-2 (COVID-19) RNA MADISON+probe Ql (Unsp spec) Not detected Normal Not Detected [facility] ([place]) Comment on above: Result Comment: This test is being used under the FDA EUA procedure. This assay has been validated in the [facility] for use with nasopharyngeal specimens in [facility]. If a non-validated specimen or test collection method was used, please interpret the results with caution, especially if the test result is negative. A positive test result for COVID-19 indicates that RNA from SARS-CoV-2 was detected, and the patient is infected with the virus and presumed to be contagious. Laboratory test results should always be considered in the context of clinical observations and epidemiological data in making a final diagnosis and patient management decisions. Patient management should follow current CDC guidelines. A negative test result for this test means that SARS-CoV-2 RNA was not present in the specimen above the limit of detection. However, a negative result does not rule out COVID-19 and should not be used as the sole basis for treatment or patient management decisions. A negative result does not exclude the possibility of COVID-19. When diagnostic testing is negative, the possibility of a false negative result should be considered in the context of a patient's recent exposures and the presence of clinical signs and symptoms consistent with COVID-19. The possibility of a false negative result should especially be considered if the patient?s recent exposures or clinical presentation indicate that COVID-19 is likely, and diagnostic tests for other causes of illness (e.g., other respiratory illness) are negative. If COVID-19 is still suspected based on exposure history together with other clinical findings, re-testing should be considered by healthcare providers in consultation with public health authorities. Performed By: #### M G, GFR, BMP #### [place] [address] VANCRon 09-17-2022 LDose Vancomycin: (random) See eMAR Normal [facility] ([place] Comment on above: Performed By: #### A PTT #### [place] [address] Vancomycin Lvl (random) 27.2 mcg/mL Normal [facility] ([place]) Comment on above: Performed By: #### A PTT #### [place] [address] XR CHEST 1 VIEWon 09-17-2022 XR CHEST 1 VIEW ORIGINAL EXAMINATION: ONE XRAY VIEW OF THE CHEST09/17/2022 6:20 am COMPARISON: 09/16/2022 HISTORY: ORDERING SYSTEM PROVIDED HISTORY: Reason for Exam: shortness of breath FINDINGS: Similar position of the right internal jugular central venous catheter, endotracheal tube, and enteric tube. The cardiomediastinal silhouette is stable. There is no florid pulmonary vascular congestion. Interval improvement/near complete resolution of right mid lung interstitial and airspace opacification. No large pleural effusion. No pneumothorax. IMPRESSION: Near complete resolution of right mid lung opacification. No acute cardiopulmonary process by radiograph at this time. I have personally reviewed the images of this examination and agree with the resident's findings and interpretation. Interpreted by: Gordon Koehler MD Preliminary Report By: Tammy Degroot Electronically signed By Gordon Koehler MD Dictated Date: 09/17/2022 6:26:58 AM Prelim Date: 09/17/2022 6:29:09 AM Sign Date: 09/17/2022 7:50:15 AM Ordering Provider: ADRIENNE Smith [facility] ([place]) .Auto Diffon 09-16-2022 Basophil, Absolute 0.1 10 3/mcL Normal 0.0-0.3 [facility] ([place]) Comment on above: Performed By: #### Diamond Ortega GFR, BMP #### [address] [address] Basophils/100 WBC (Bld) 0.7 % Normal 0.0-2.5 A [facility] ([place]) Comment on above: Performed By: #### Diamond Ortega GFR, BMP #### [address] [address] Eosinophil, Absolute 0.0 10 3/mcL Normal 0.0-0.7 [facility] ([place]) Comment on above: Performed By: #### Diamond Ortega GFR, BMP #### [address] [address] Eosinophils/100 WBC (Bld) 0.1 % Normal 0.0-6.0 [facility] ([place] Comment on above: Performed By: #### Diamond Ortega GFR, BMP #### [address] [address] Lymphocyte, Absolute 1.2 10 3/mcL Normal 0.9-4.3 [facility] ([place]) Comment on above: Performed By: #### Diamond Ortega GFR, BMP #### [address] [address] Lymphocytes/100 WBC (Bld) 6.4 % Low 20.0-40.0 [facility] ([place] Comment on above: Performed By: #### Diamond Ortega GFR, BMP #### [address] [address] Monocyte, Absolute 1.4 10 3/mcL Normal 0.1-1.4 [facility] ([place] Comment on above: Performed By: #### M G, GFR, BMP #### [address] [address] Monocytes/100 WBC (Bld) 8.0 % Normal 2.0-13.0 A [facility] ([place] Comment on above: Performed By: #### M G, GFR, BMP #### [address] [address] Neutrophils/100 WBC (Bld) 84.8 % High 50.0-75.0 [facility] ([place]) Comment on above: Performed By: #### M G, GFR, BMP #### [address] [address] Basophil, Absolute 0.1 10 3/mcL Normal 0.0-0.3 [facility] ([place] Comment on above: Performed By: #### H FP, CBC, ANEU, ADIFF #### [address] [address] Basophils/100 WBC (Bld) 0.5 % Normal 0.0-2.5 A [facility] ([place] Comment on above: Performed By: #### H FP, CBC, ANEU, ADIFF #### [address] [address] Eosinophil, Absolute 0.1 10 3/mcL Normal 0.0-0.7 [facility] ([place]) Comment on above: Performed By: #### H FP, CBC, ANEU, ADIFF #### [address] [address] Eosinophils/100 WBC (Bld) 0.2 % Normal 0.0-6.0 [facility] ([place]) Comment on above: Performed By: #### H FP, CBC, ANEU, ADIFF #### [address] [address] Lymphocyte, Absolute 1.7 10 3/mcL Normal 0.9-4.3 [facility] ([place]) Comment on above: Performed By: #### H FP, CBC, ANEU, ADIFF #### [address] [address] Lymphocytes/100 WBC (Bld) 6.5 % Low 20.0-40.0 [facility] ([place] Comment on above: Performed By: #### H FP, CBC, ANEU, ADIFF #### [address] [address] Monocyte, Absolute 1.3 10 3/mcL Normal 0.1-1.4 [facility] ([place] Comment on above: Performed By: #### H FP, CBC, ANEU, ADIFF #### [address] [address] Monocytes/100 WBC (Bld) 4.7 % Normal 2.0-13.0 A [facility] ([place] Comment on above: Performed By: #### H FP, CBC, ANEU, ADIFF #### [address] [address] Neutrophils/100 WBC (Bld) 88.1 % High 50.0-75.0 [facility] ([place] Comment on above: Performed By: #### H FP, CBC, ANEU, ADIFF #### [address] [address] Basophil, Absolute 0.1 10 3/mcL Normal 0.0-0.3 [facility] ([place] Comment on above: Performed By: #### H FP, CBC, ANEU, ADIFF #### [address] [address] Basophils/100 WBC (Bld) 0.3 % Normal 0.0-2.5 A [facility] ([place] Comment on above: Performed By: #### H FP, CBC, ANEU, ADIFF #### [address] [address] Eosinophil, Absolute 0.0 10 3/mcL Normal 0.0-0.7 [facility] ([place] Comment on above: Performed By: #### H FP, CBC, ANEU, ADIFF #### [address] [address] Eosinophils/100 WBC (Bld) 0.1 % Normal 0.0-6.0 [facility] ([place] Comment on above: Performed By: #### H FP, CBC, ANEU, ADIFF #### [address] [address] Lymphocyte, Absolute 0.6 10 3/mcL Low 0.9-4.3 [facility] ([place]) Comment on above: Performed By: #### H FP, CBC, ANEU, ADIFF #### [address] [address] Lymphocytes/100 WBC (Bld) 2.8 % Low 20.0-40.0 [facility] ([place] Comment on above: Performed By: #### H FP, CBC, ANEU, ADIFF #### [address] [address] Monocyte, Absolute 1.2 10 3/mcL Normal 0.1-1.4 [facility] ([place] Comment on above: Performed By: #### H FP, CBC, ANEU, ADIFF #### [address] [address] Monocytes/100 WBC (Bld) 5.6 % Normal 2.0-13.0 A [facility] ([place]) Comment on above: Performed By: #### H FP, CBC, ANEU, ADIFF #### [address] [address] Neutrophils/100 WBC (Bld) 91.2 % High 50.0-75.0 [facility] ([place] Comment on above: Performed By: #### H FP, CBC, ANEU, ADIFF #### [address] [address] .GFRon 09-16-2022 GFR 55 ml/min/1.73sqm Normal [facility] ([place]) Comment on above: Result Comment: GFR Population mean for , Non- Americans Ages 20-29 = 116 mL/min/1.73 sq.m. Ages 30-39 = 107 mL/min/1.73 sq.m. Ages 40-49 = 99 mL/min/1.73 sq.m. Ages 50-59 = 93 mL/min/1.73 sq.m. Ages 60-69 = 85 mL/min/1.73 sq.m. Ages 70+ = 75 mL/min/1.73 sq.m. Chronic Kidney Disease: Less than 60 mL/min/1.73 square meters End Stage Renal Disease: Less than 15 mL/min/1.73 square meters Performed By: #### M G, GFR, BMP #### [address] [address] GFR Non- 45 ml/min/1.73sqm Normal [facility] ([place]) Comment on above: Result Comment: GFR Population mean for , Non- Americans Ages 20-29 = 116 mL/min/1.73 sq.m. Ages 30-39 = 107 mL/min/1.73 sq.m. Ages 40-49 = 99 mL/min/1.73 sq.m. Ages 50-59 = 93 mL/min/1.73 sq.m. Ages 60-69 = 85 mL/min/1.73 sq.m. Ages 70+ = 75 mL/min/1.73 sq.m. Chronic Kidney Disease: Less than 60 mL/min/1.73 square meters End Stage Renal Disease: Less than 15 mL/min/1.73 square meters Performed By: #### Diamond G, GFR, BMP #### [address] [address] GFR >60 Normal [facility] ([place] Comment on above: Result Comment: GFR Population mean for , Non- Americans Ages 20-29 = 116 mL/min/1.73 sq.m. Ages 30-39 = 107 mL/min/1.73 sq.m. Ages 40-49 = 99 mL/min/1.73 sq.m. Ages 50-59 = 93 mL/min/1.73 sq.m. Ages 60-69 = 85 mL/min/1.73 sq.m. Ages 70+ = 75 mL/min/1.73 sq.m. Chronic Kidney Disease: Less than 60 mL/min/1.73 square meters End Stage Renal Disease: Less than 15 mL/min/1.73 square meters Performed By: #### H FP, CBC, ANEU, ADIFF #### [address] [address] GFR Non- 57 ml/min/1.73sqm Normal [facility] ([place]) Comment on above: Result Comment: GFR Population mean for , Non- Americans Ages 20-29 = 116 mL/min/1.73 sq.m. Ages 30-39 = 107 mL/min/1.73 sq.m. Ages 40-49 = 99 mL/min/1.73 sq.m. Ages 50-59 = 93 mL/min/1.73 sq.m. Ages 60-69 = 85 mL/min/1.73 sq.m. Ages 70+ = 75 mL/min/1.73 sq.m. Chronic Kidney Disease: Less than 60 mL/min/1.73 square meters End Stage Renal Disease: Less than 15 mL/min/1.73 square meters Performed By: #### H FP, CBC, ANEU, ADIFF #### [address] [address] GFR Non- >60 Normal [facility] ([place]) Comment on above: Result Comment: GFR Population mean for , Non- Americans Ages 20-29 = 116 mL/min/1.73 sq.m. Ages 30-39 = 107 mL/min/1.73 sq.m. Ages 40-49 = 99 mL/min/1.73 sq.m. Ages 50-59 = 93 mL/min/1.73 sq.m. Ages 60-69 = 85 mL/min/1.73 sq.m. Ages 70+ = 75 mL/min/1.73 sq.m. Chronic Kidney Disease: Less than 60 mL/min/1.73 square meters End Stage Renal Disease: Less than 15 mL/min/1.73 square meters Performed By: #### H FP, CBC, ANEU, ADIFF #### [address] [address] GFR >60 Normal [facility] ([place]) Comment on above: Result Comment: GFR Population mean for , Non- Americans Ages 20-29 = 116 mL/min/1.73 sq.m. Ages 30-39 = 107 mL/min/1.73 sq.m. Ages 40-49 = 99 mL/min/1.73 sq.m. Ages 50-59 = 93 mL/min/1.73 sq.m. Ages 60-69 = 85 mL/min/1.73 sq.m. Ages 70+ = 75 mL/min/1.73 sq.m. Chronic Kidney Disease: Less than 60 mL/min/1.73 square meters End Stage Renal Disease: Less than 15 mL/min/1.73 square meters Performed By: #### H FP, CBC, ANEU, ADIFF #### [place] [address] .MDWon 09-16-2022 Monocyte Distribution Width 16.92 Normal 0.00-20.00 [facility] ([place]) Comment on above: Result Comment: For ED adult patients suspected of sepsis, MDW<=20.0 does not rule out sepsis or risk of sepsis Performed By: #### H FP, CBC, ANEU, ADIFF #### [place] [address] .Manual Diffon 09-16-2022 Basophil %, Manual 0.0 % Normal 0.0-2.5 [facility] ([place] Comment on above: Performed By: #### H FP, CBC, ANEU, ADIFF #### [place] [address] Basophil, Abs Manual 0.0 10 3/mcL Normal 0.0-0.3 [facility] ([place]) Comment on above: Performed By: #### H FP, CBC, ANEU, ADIFF #### [place] [address] Eosinophil %, Manual 0.0 % Normal 0.0-6.0 [facility] ([place] Comment on above: Performed By: #### H FP, CBC, ANEU, ADIFF #### [place] [address] Eosinophil, Abs Manual 0.0 10 3/mcL Normal 0.0-0.7 [facility] ([place]) Comment on above: Performed By: #### H FP, CBC, ANEU, ADIFF #### [place] [address] Lymphocyte %, Manual 5.0 % Low 20.0-40.0 [facility] ([place] Comment on above: Performed By: #### H FP, CBC, ANEU, ADIFF #### [address] [address] Lymphocyte, Abs Manual 1.4 10 3/mcL Normal 0.9-4.3 [facility] ([place] Comment on above: Performed By: #### H FP, CBC, ANEU, ADIFF #### [address] [address] Monocyte %, Manual 6.0 % Normal 2.0-13.0 [facility] [place] Comment [place] above: Performed By: #### H FP, CBC, ANEU, ADIFF #### [address] [address] Monocyte, Abs Manual 1.6 10 3/mcL High 0.1-1.4 [facility] ([place]) Comment on above: Performed By: #### H FP, CBC, ANEU, ADIFF #### [address] [address] Neutrophil %, Manual 89.0 % High 50.0-75.0 [facility] ([place] Comment on above: Performed By: #### H FP, CBC, ANEU, ADIFF #### [address] [address] Neutrophil, Abs Manual 24.0 10 3/mcL High 2.3-8.1 [facility] ([place] Comment on above: Performed By: #### H FP, CBC, ANEU, ADIFF #### [address] [address] Nucleated RBC 0.0 /100 WBC Normal [facility] ([place] Comment on above: Performed By: #### H FP, CBC, ANEU, ADIFF #### [address] [address] .Morphon 09-16-2022 Large Platelets Few Normal [facility] ([place] Comment on above: Performed By: #### H FP, CBC, ANEU, ADIFF #### [address] [address] Platelet Estimate Normal Normal [facility] ([place] Comment on above: Performed By: #### H FP, CBC, ANEU, ADIFF #### [address] [address] RBC morphology finding Nom (Bld) See Below Normal [facility] ([place] Comment on above: Result Comment: RBC Morphology appears Normal Performed By: #### H FP, CBC, ANEU, ADIFF #### [address] [address] .NEUABSon 09-16-2022 Neutrophil, Absolute 15.2 10 3/mcL High 2.3-8.1 A [facility] ([place]) Comment on above: Performed By: #### M G, GFR, BMP #### [address] [address] Neutrophil, Absolute 23.8 10 3/mcL High 2.3-8.1 A [facility] ([place] Comment on above: Performed By: #### H FP, CBC, ANEU, ADIFF #### [place] [id number] Neutrophil, Absolute 19.5 10 3/mcL High 2.3-8.1 A [facility] ([place] Comment on above: Performed By: #### H FP, CBC, ANEU, ADIFF #### [address] [address] ABO/Rh (Gel)on 09-16-2022 ABO/Rh Interp Positive Invalid Interpretation Code [facility] ([place] Comment on above: Performed By: #### H FP, CBC, ANEU, ADIFF #### [address] [address] ABS (Gel)on 09-16-2022 ABSC Interp (Gel) Negative Normal [facility] ([place] Comment on above: Performed By: #### H FP, CBC, ANEU, ADIFF #### [address] [address] APTTon 09-16-2022 aPTT Coag (Bld) [Time] 32.9 s Normal 25.0-35.0 [facility] ([place]) Comment on above: Result Comment: For Heparin anticoagulation therapy, the recommended therapeutic range is: 54-77 seconds (APTT Correlation with Anti-Xa therapeutic range of 0.3-0.7 units/ml). PLEASE REFERENCE THE PHARMACY PROTOCOL FOR DOSING. Performed By: #### H FP, CBC, ANEU, ADIFF #### [address] [address] Heparin dose (APTT) Unknown Normal [facility] ([place]) Comment on above: Performed By: #### H FP, CBC, ANEU, ADIFF #### [address] [address] BGon 09-16-2022 Barometric Pressure 732 mmHg Normal [facility] ([place] Comment on above: Performed By: #### M Jordan, GFR, BMP #### [address] [address] Base excess Calc (Bld) [Moles/Vol] -0.5000 mmol/L Normal [facility] ([place] Comment on above: Performed By: #### M G, GFR, BMP #### [address] [address] CO2 [Moles/Vol] 27.8 mmol/L Normal 22.0-30.0 [facility] ([place] Comment on above: Performed By: #### M G, GFR, BMP #### [address] [address] HCO3 (Bld) [Moles/Vol] 26.2 mmol/L Normal 21.0-29.0 A [facility] ([place] Comment on above: Performed By: #### M G, GFR, BMP #### [address] [address] Oxygen (Bld) [Partial pressure] 78.7 mm[Hg] Normal 74.0-108.0 [facility] ([place] Comment on above: Performed By: #### M G, GFR, BMP #### [address] [address] Oxygen saturation in Blood 94.7 % Normal 92.0-96.0 [facility] ([place] Comment on above: Performed By: #### M G, GFR, BMP #### [address] [address] pCO2 51.1 mmHg High 32.0-46.0 [facility] ([place] Comment on above: Performed By: #### M G, GFR, BMP #### [address] [address] pH (Bld) 7.328 [pH] Low 7.380-7.460 [facility] ([place] Comment on above: Performed By: #### M G, GFR, BMP #### [address] [address] Barometric Pressure 733 mmHg Normal [facility] ([place] Comment on above: Performed By: #### A PTT #### [place] [id number] Base excess Calc (Bld) [Moles/Vol] -3.2000 mmol/L Normal [facility] ([place] Comment on above: Performed By: #### A PTT #### [address] [address] CO2 [Moles/Vol] 30.7 mmol/L High 22.0-30.0 [facility] ([place] Comment on above: Performed By: #### A PTT #### [address] [address] HCO3 (Bld) [Moles/Vol] 28.1 mmol/L Normal 21.0-29.0 A [facility] ([place] Comment on above: Performed By: #### A PTT #### [address] [address] Oxygen (Bld) [Partial pressure] 110.6 mm[Hg] High 74.0-108.0 [facility] ([place] Comment on above: Performed By: #### A PTT #### [address] [address] Oxygen saturation in Blood 96.4 % High 92.0-96.0 [facility] ([place] Comment on above: Performed By: #### A PTT #### [address] [address] pCO2 83.2 mmHg Critically abnormal 32.0-46.0 [facility] ([place] Comment on above: Performed By: #### A PTT #### [address] [address] pH (Bld) 7.147 [pH] Critically abnormal 7.380-7.460 [facility] ([place] Comment on above: Performed By: #### A PTT #### [address] [address] BMPon 09-16-2022 BUN/Creatinine Ratio 10.0 ratio Normal 10.0-22.0 [facility] ([place] Comment on above: Performed By: #### M G, GFR, BMP #### [place] [id number] Calcium [Mass/Vol] 8.1 mg/dL Low 8.7-10.4 [facility] [place] Comment [place] above: Performed By: #### M G, GFR, BMP #### [place] [id number] Chloride [Moles/Vol] 105 mmol/L Normal 98-110 [facility] ([place] Comment on above: Performed By: #### M Jordan, GFR, BMP #### [place] [id number] CO2 [Moles/Vol] 29 mmol/L Normal 22-32 [facility] ([place] Comment on above: Performed By: #### M G, GFR, BMP #### [place] [id number] Creatinine [Mass/Vol] 1.60 mg/dL High 0.60-1.40 [facility] ([place]) Comment on above: Performed By: #### M G, GFR, BMP #### [address] [address] Electrolyte Balance 5.0 mEq/L Normal 4.0-15.0 [facility] ([place] Comment on above: Performed By: #### M G, GFR, BMP #### [address] [address] Glucose [Mass/Vol] 240 mg/dL High 70-110 [facility] [place] Comment [place]: Performed By: #### Diamond Ortega, GFR, BMP #### [address] [address] Potassium [Moles/Vol] 3.5 mmol/L Normal 3.5-5.0 [facility] ([place] Comment on above: Result Comment: Spec imen slightly hemolyzed. Performed By: #### Diamond Ortega, GFR, BMP #### [address] [address] Sodium [Moles/Vol] 139 mmol/L Normal 136-145 [facility] [place] Comment [place] above: Performed By: #### Diamond Ortega, GFR, BMP #### [address] [address] Urea nitrogen [Mass/Vol] 16.0 mg/dL Normal 8.0-22.0 [facility] ([place] Comment on above: Performed By: #### Diamond Ortega, GFR, BMP #### [address] [address] BUN/Creatinine Ratio 9.2 ratio Low 10.0-22.0 [facility] ([place] Comment on above: Performed By: #### H FP, CBC, ANEU, ADIFF #### [address] [address] Calcium [Mass/Vol] 8.6 mg/dL Low 8.7-10.4 [facility] [place] Comment [place] above: Performed By: #### H FP, CBC, ANEU, ADIFF #### [address] [address] Chloride [Moles/Vol] 98 mmol/L Normal 98-110 [facility] ([place] Comment on above: Performed By: #### H FP, CBC, ANEU, ADIFF #### [address] [address] CO2 [Moles/Vol] 32 mmol/L Normal 22-32 [facility] ([place] Comment on above: Performed By: #### H FP, CBC, ANEU, ADIFF #### [address] [address] Creatinine [Mass/Vol] 1.31 mg/dL Normal 0.60-1.40 [facility] ([place] Comment on above: Performed By: #### H FP, CBC, ANEU, ADIFF #### [address] [address] Electrolyte Balance 2.0 mEq/L Low 4.0-15.0 [facility] ([place] Comment on above: Performed By: #### H FP, CBC, ANEU, ADIFF #### [address] [address] Glucose [Mass/Vol] 510 mg/dL Critically abnormal 70-110 [facility] ([place] Comment on above: Performed By: #### H FP, CBC, ANEU, ADIFF #### [address] [address] Potassium [Moles/Vol] 7.0 mmol/L Critically abnormal 3.5-5.0 [facility] ([place] Comment on above: Performed By: #### H FP, CBC, ANEU, ADIFF #### [address] [address] Sodium [Moles/Vol] 132 mmol/L Low 136-145 [facility] [place] Comment on above: Performed By: #### H FP, CBC, ANEU, ADIFF #### [address] [address] Urea nitrogen [Mass/Vol] 12.0 mg/dL Normal 8.0-22.0 [facility] ([place] Comment on above: Performed By: #### H FP, CBC, ANEU, ADIFF #### [address] [address] CBCon 09-16-2022 Erythrocyte distribution width (RBC) [Ratio] 13.7 % Normal 11.5-15.5 [facility] ([place] Comment on above: Performed By: #### M G, GFR, BMP #### [address] [address] Hematocrit (Bld) [Volume fraction] 39.0 % Low 40.0-52.0 [facility] ([place] Comment on above: Performed By: #### Diamond G, GFR, BMP #### [place] [address] Hgb 12.9 G/dL Low 13.0-17.5 [facility] ([place] Comment on above: Performed By: #### Diamond G, GFR, BMP #### [address] [address] MCH (RBC) [Entitic mass] 29.0 pg Normal 27.0-33.0 [facility] ([place] Comment on above: Performed By: #### Diamond Ortega, GFR, BMP #### [place] [address] MCHC 33.0 G/dL Normal 32.0-36.0 [facility] ([place] Comment on above: Performed By: #### Diamond Ortega, GFR, BMP #### [place] [address] MCV (RBC) [Entitic vol] 88.0 fL Normal 81.0-100.0 A [facility] ([place] Comment on above: Performed By: #### Diamond Ortega, GFR, BMP #### [place] [address] Platelet 310 10 3/mcL Normal 150-450 [facility] ([place]) Comment on above: Performed By: #### Diamond G, GFR, BMP #### [place] [address] Platelet mean volume (Bld) [Entitic vol] 9.5 fL Normal 6.4-10.5 [facility] ([place] Comment on above: Performed By: #### Diamond G, GFR, BMP #### [place] [address] RBC 4.43 10 6/mcL Low 4.50-6.00 [facility] ([place] Comment on above: Performed By: #### Diamond G, GFR, BMP #### [place] [address] WBC 17.9 10 3/mcL High 4.5-10.8 [facility] ([place] Comment on above: Performed By: #### M G, GFR, BMP #### [place] [address] Erythrocyte distribution width (RBC) [Ratio] 14.1 % Normal 11.5-15.5 [facility] ([place] Comment on above: Performed By: #### H FP, CBC, ANEU, ADIFF #### [place] [id number] Hematocrit (Bld) [Volume fraction] 46.5 % Normal 40.0-52.0 [facility] ([place] Comment on above: Performed By: #### H FP, CBC, ANEU, ADIFF #### [place] [address] Hgb 14.9 G/dL Normal 13.0-17.5 [facility] ([place] Comment on above: Performed By: #### H FP, CBC, ANEU, ADIFF #### [place] [id number] MCH (RBC) [Entitic mass] 28.6 pg Normal 27.0-33.0 [facility] ([place] Comment on above: Performed By: #### H FP, CBC, ANEU, ADIFF #### [place] [address] MCHC 32.1 G/dL Normal 32.0-36.0 [facility] ([place] Comment on above: Performed By: #### H FP, CBC, ANEU, ADIFF #### [place] [id number] MCV (RBC) [Entitic vol] 89.0 fL Normal 81.0-100.0 A [facility] ([place] Comment on above: Performed By: #### H FP, CBC, ANEU, ADIFF #### [place] [id number] Platelet 294 10 3/mcL Normal 150-450 [facility] ([place] Comment on above: Performed By: #### H FP, CBC, ANEU, ADIFF #### [place] [address] Platelet mean volume (Bld) [Entitic vol] 10.0 fL Normal 6.4-10.5 [facility] ([place] Comment on above: Performed By: #### H FP, CBC, ANEU, ADIFF #### [place] [address] RBC 5.22 10 6/mcL Normal 4.50-6.00 [facility] ([place] Comment on above: Performed By: #### H FP, CBC, ANEU, ADIFF #### [place] [address] WBC 21.4 10 3/mcL High 4.5-10.8 [facility] ([place] Comment on above: Performed By: #### H FP, CBC, ANEU, ADIFF #### [place] [address] Erythrocyte distribution width (RBC) [Ratio] 13.8 % Normal 11.5-15.5 [facility] ([place] Comment on above: Performed By: #### H FP, CBC, ANEU, ADIFF #### [place] [address] Hematocrit (Bld) [Volume fraction] 46.6 % Normal 40.0-52.0 [facility] ([place] Comment on above: Performed By: #### H FP, CBC, ANEU, ADIFF #### [place] [address] Hgb 15.2 G/dL Normal 13.0-17.5 [facility] ([place] Comment on above: Performed By: #### H FP, CBC, ANEU, ADIFF #### [address] [address] MCH (RBC) [Entitic mass] 29.3 pg Normal 27.0-33.0 [facility] ([place] Comment on above: Performed By: #### H FP, CBC, ANEU, ADIFF #### [address] [address] MCHC 32.7 G/dL Normal 32.0-36.0 [facility] ([place] Comment on above: Performed By: #### H FP, CBC, ANEU, ADIFF #### [address] [address] MCV (RBC) [Entitic vol] 89.7 fL Normal 81.0-100.0 A [facility] ([place] Comment on above: Performed By: #### H FP, CBC, ANEU, ADIFF #### [address] [address] Platelet 348 10 3/mcL Normal 150-450 [facility] ([place] Comment on above: Performed By: #### H FP, CBC, ANEU, ADIFF #### [address] [address] Platelet mean volume (Bld) [Entitic vol] 10.2 fL Normal 6.4-10.5 [facility] ([place] Comment on above: Performed By: #### H FP, CBC, ANEU, ADIFF #### [address] [address] RBC 5.19 10 6/mcL Normal 4.50-6.00 [facility] ([place]) Comment on above: Performed By: #### H FP, CBC, ANEU, ADIFF #### [address] [address] WBC 27.0 10 3/mcL High 4.5-10.8 [facility] ([place]) Comment on above: Performed By: #### H FP, CBC, ANEU, ADIFF #### [address] [address] CMPon 09-16-2022 Albumin Level 2.7 G/dL Low 3.2-4.8 [facility] ([place]) Comment on above: Order Comment: hemol yzed...notified ERR-Yan 09/16/2022 13:35:51 EDT Performed By: #### H FP, CBC, ANEU, ADIFF #### [place] [id number] Albumin/Globulin [Mass ratio] 0.6 {ratio} Low 0.9-1.6 [facility] ([place]) Comment on above: Order Comment: hemol yzed...notified ERR-Yan 09/16/2022 13:35:51 EDT Performed By: #### H FP, CBC, ANEU, ADIFF #### [address] [address] ALP [Catalytic activity/Vol] 112 U/L Normal 38-126 [facility] ([place] Comment on above: Order Comment: hemol yzed...notified [facility] 09/16/2022 13:35:51 EDT Performed By: #### H FP, CBC, ANEU, ADIFF #### [address] [address] ALT [Catalytic activity/Vol] 12 U/L Normal 12-55 [facility] ([place] Comment on above: Order Comment: hemol yzed...notified [facility] 09/16/2022 13:35:51 EDT Performed By: #### H FP, CBC, ANEU, ADIFF #### [place] [id number] AST [Catalytic activity/Vol] 19 U/L Normal 8-34 [facility] ([place]) Comment on above: Order Comment: hemol yzed...notified [facility] 09/16/2022 13:35:51 EDT Performed By: #### H FP, CBC, ANEU, ADIFF #### [address] [address] Bili Total 0.60 mg/dL Normal 0.20-1.20 [facility] ([place]) Comment on above: Order Comment: hemol yzed...notified [facility] 09/16/2022 13:35:51 EDT Result Comment: Use of this assay is not recommended for patients undergoing treatment with eltrombopag due to the potential for falsely elevated results. Performed By: #### H FP, CBC, ANEU, ADIFF #### [place] [id number] BUN/Creatinine Ratio 10.4 ratio Normal 10.0-22.0 [facility] ([place] Comment on above: Order Comment: hemol yzed...notified [facility] 09/16/2022 13:35:51 EDT Performed By: #### H FP, CBC, ANEU, ADIFF #### [address] [address] Calcium [Mass/Vol] 8.7 mg/dL Normal 8.7-10.4 [facility] [place] Comment on above: Order Comment: hemol yzed...notified [facility] 09/16/2022 13:35:51 EDT Performed By: #### H FP, CBC, ANEU, ADIFF #### [address] [address] Chloride [Moles/Vol] 98 mmol/L Normal 98-110 [facility] ([place] Comment on above: Order Comment: hemol yzed...notified [facility] 09/16/2022 13:35:51 EDT Performed By: #### H FP, CBC, ANEU, ADIFF #### [address] [address] CO2 [Moles/Vol] 31 mmol/L Normal 22-32 [facility] ([place] Comment on above: Order Comment: hemol yzed...notified [facility] 09/16/2022 13:35:51 EDT Performed By: #### H FP, CBC, ANEU, ADIFF #### [address] [address] Creatinine [Mass/Vol] 1.15 mg/dL Normal 0.60-1.40 [facility] ([place] Comment on above: Order Comment: hemol yzed...notified [facility] 09/16/2022 13:35:51 EDT Performed By: #### H FP, CBC, ANEU, ADIFF #### [address] [address] Electrolyte Balance 4.0 mEq/L Normal 4.0-15.0 [facility] ([place] Comment on above: Order Comment: hemol yzed...notified [facility] 09/16/2022 13:35:51 EDT Performed By: #### H FP, CBC, ANEU, ADIFF #### [address] [address] Globulin 4.4 G/dL High 1.5-3.8 [facility] ([place] Comment on above: Order Comment: hemol yzed...notified [facility] 09/16/2022 13:35:51 EDT Performed By: #### H FP, CBC, ANEU, ADIFF #### [address] [address] Glucose [Mass/Vol] 514 mg/dL Critically abnormal 70-110 [facility] ([place] Comment on above: Order Comment: hemol yzed...notified [facility] 09/16/2022 13:35:51 EDT Performed By: #### H FP, CBC, ANEU, ADIFF #### [address] [address] Potassium [Moles/Vol] 5.5 mmol/L High 3.5-5.0 [facility] ([place] Comment on above: Order Comment: hemol yzed...notified [facility] 09/16/2022 13:35:51 EDT Result Comment: Spec imen slightly hemolyzed. Performed By: #### H FP, CBC, ANEU, ADIFF #### [address] [address] Sodium [Moles/Vol] 133 mmol/L Low 136-145 [facility] [place] Comment [place]: Order Comment: hemol yzed...notified [facility] 09/16/2022 13:35:51 EDT Performed By: #### H FP, CBC, ANEU, ADIFF #### [address] [address] Total Protein 7.1 G/dL Normal 5.7-8.2 [facility] ([place] Comment on above: Order Comment: hemol yzed...notified [facility] 09/16/2022 13:35:51 EDT Result Comment: No te - New Reference Range in effect 19 Performed By: #### H FP, CBC, ANEU, ADIFF #### [address] [address] Urea nitrogen [Mass/Vol] 12.0 mg/dL Normal 8.0-22.0 [facility] ([place] Comment on above: Order Comment: hemol yzed...notified [facility]RÉ[facility]-aYn 09/16/2022 13:35:51 EDT Performed By: #### H FP, CBC, ANEU, ADIFF #### [address] [address] GLUon 09-16-2022 Glucose [Mass/Vol] 295 mg/dL High 70-110 [facility] [place] Comment [place] above: Performed By: #### H FP, CBC, ANEU, ADIFF #### [address] [address] HFPon 09-16-2022 Bili Indirect 0.3 mg/dL Normal 0.1-10.0 [facility] ([place] Comment on above: Performed By: #### M G, GFR, BMP #### [place] [address] Albumin Level 2.0 G/dL Low 3.2-4.8 [facility] ([place] Comment on above: Performed By: #### M G, GFR, BMP #### [place] [id number] Albumin/Globulin [Mass ratio] 0.6 {ratio} Low 0.9-1.6 [facility] ([place] Comment on above: Performed By: #### M G, GFR, BMP #### [address] [address] ALP [Catalytic activity/Vol] 83 U/L Normal 38-126 [facility] ([place] Comment on above: Performed By: #### M G, GFR, BMP #### [address] [address] ALT [Catalytic activity/Vol] 11 U/L Low 12-55 [facility] ([place] Comment on above: Performed By: #### M G, GFR, BMP #### [address] [address] AST [Catalytic activity/Vol] 12 U/L Normal 8-34 [facility] ([place] Comment on above: Performed By: #### M G, GFR, BMP #### [address] [address] Bili Direct 0.1 mg/dL Normal 0.0-0.4 [facility] ([place] Comment on above: Result Comment: Use of this assay is not recommended for patients undergoing treatment with eltrombopag due to the potential for falsely elevated results. Performed By: #### M G, GFR, BMP #### [place] [id number] Bili Total 0.40 mg/dL Normal 0.20-1.20 [facility] ([place] Comment on above: Result Comment: Use of this assay is not recommended for patients undergoing treatment with eltrombopag due to the potential for falsely elevated results. Performed By: #### M G, GFR, BMP #### [place] [id number] Globulin 3.1 G/dL Normal 1.5-3.8 [facility] ([place] Comment on above: Performed By: #### M G, GFR, BMP #### [place] [id number] Total Protein 5.1 G/dL Low 5.7-8.2 [facility] ([place] Comment on above: Result Comment: No te - New Reference Range in effect 19 Performed By: #### M G, GFR, BMP #### [place] [id number] Albumin Level 2.6 G/dL Low 3.2-4.8 [facility] ([place] Comment on above: Performed By: #### H FP, CBC, ANEU, ADIFF #### [address] [address] Albumin/Globulin [Mass ratio] 0.6 {ratio} Low 0.9-1.6 [facility] ([place] Comment on above: Performed By: #### H FP, CBC, ANEU, ADIFF #### [address] [address] ALP [Catalytic activity/Vol] 114 U/L Normal 38-126 [facility] ([place] Comment on above: Performed By: #### H FP, CBC, ANEU, ADIFF #### [address] [address] ALT [Catalytic activity/Vol] 14 U/L Normal 12-55 [facility] ([place] Comment on above: Performed By: #### H FP, CBC, ANEU, ADIFF #### [address] [address] AST [Catalytic activity/Vol] 19 U/L Normal 8-34 [facility] ([place] Comment on above: Performed By: #### H FP, CBC, ANEU, ADIFF #### [address] [address] Bili Direct 0.2 mg/dL Normal 0.0-0.4 [facility] ([place] Comment on above: Result Comment: Use of this assay is not recommended for patients undergoing treatment with eltrombopag due to the potential for falsely elevated results. Performed By: #### H FP, CBC, ANEU, ADIFF #### [address] [address] Bili Indirect 0.4 mg/dL Normal 0.1-10.0 [facility] ([place] Comment on above: Performed By: #### H FP, CBC, ANEU, ADIFF #### [place] [address] Bili Total 0.60 mg/dL Normal 0.20-1.20 [facility] ([place] Comment on above: Result Comment: Use of this assay is not recommended for patients undergoing treatment with eltrombopag due to the potential for falsely elevated results. Performed By: #### H FP, CBC, ANEU, ADIFF #### [address] [address] Globulin 4.0 G/dL High 1.5-3.8 [facility] ([place] Comment on above: Performed By: #### H FP, CBC, ANEU, ADIFF #### [address] [address] Total Protein 6.6 G/dL Normal 5.7-8.2 [facility] ([place] Comment on above: Result Comment: No te - New Reference Range in effect 19 Performed By: #### H FP, CBC, ANEU, ADIFF #### [address] [address] HHon 09-16-2022 Hematocrit (Bld) [Volume fraction] 47.0 % Normal 40.0-52.0 [facility] ([place] Comment on above: Performed By: #### H FP, CBC, ANEU, ADIFF #### [place] [address] Hgb 15.4 G/dL Normal 13.0-17.5 [facility] ([place] Comment on above: Performed By: #### H FP, CBC, ANEU, ADIFF #### [address] [address] [place] 09-16-2022 Potassium [Moles/Vol] 3.5 mmol/L Normal 3.5-5.0 [facility] ([place]) Comment on above: Performed By: #### H FP, CBC, ANEU, ADIFF #### [place] [address] LABORATORYOrdered By: Lucy Jack on 09-16-2022 Lactate [Moles/Vol] 1.8 mmol/L Invalid Interpretation Code 0.2 - 2.0 mmol/L Auto Chem SS LABORATORYOrdered By: SYSTEM SYSTEM on 09-16-2022 Bili Indirect 0.3 mg/dL Invalid Interpretation Code 0.1 - 10.0 mg/dL Chemistry S Bilirubin.conjugated [Mass/Vol] 0.1 mg/dL Invalid Interpretation Code 0.0 - 0.4 mg/dL ADM SS Comment on above: Interpretive Data: U se of this assay is not recommended for patients undergoing treatment with eltrombopag due to the potential for falsely elevated results. Basophils (Bld) [#/Vol] 0.0 103/mcL Invalid Interpretation Code 0.0 - 0.3 10^3/mcL AH Workflow SS Basophils/100 WBC (Bld) 0.0 % Invalid Interpretation Code 0.0 - 2.5 % AH Workflow SS Eosinophils (Bld) [#/Vol] 0.0 103/mcL Invalid Interpretation Code 0.0 - 0.7 10^3/mcL AH Workflow SS Eosinophils/100 WBC (Bld) 0.0 % Invalid Interpretation Code 0.0 - 6.0 % AH Workflow SS Large Platelets Few *NA* (09/16/22 2:24 PM) Invalid Interpretation Code AH Workflow SS Lymphocytes (Bld) [#/Vol] 1.4 103/mcL Invalid Interpretation Code 0.9 - 4.3 10^3/mcL AH Workflow SS Lymphocytes/100 WBC (Bld) 5.0 % Invalid Interpretation Code 20.0 - 40.0 % AH Workflow SS Monocyte distribution width Auto (Bld) [Entitic vol] 16.92 1 Invalid Interpretation Code 0.00 - 20.00 Workflow SS Comment on above: Result Comment: For ED adult patients suspected of sepsis, MDW<=20.0 does not rule out sepsis or risk of sepsis Monocytes (Bld) [#/Vol] 1.6 103/mcL Invalid Interpretation Code 0.1 - 1.4 10^3/mcL Workflow SS Monocytes/100 WBC (Bld) 6.0 % Invalid Interpretation Code 2.0 - 13.0 % AH Workflow SS Neutrophils (Bld) [#/Vol] 24.0 103/mcL Invalid Interpretation Code 2.3 - 8.1 10^3/mcL AH Workflow SS Neutrophils/100 WBC (Bld) 89.0 % Invalid Interpretation Code 50.0 - 75.0 % AH Workflow SS Nucleated RBC 0.0 /100 WBC Invalid Interpretation Code Workflow SS Platelets LM Ql (Bld) Normal *NA* (09/16/22 2:24 PM) Invalid Interpretation Code Workflow SS RBC morphology finding Nom (Bld) See Below 8 *NA* (09/16/22 2:24 PM) Invalid Interpretation Code Workflow SS Comment on above: Result Comment: RBC Morphology appears Normal Troponin I.cardiac DL <= 0.01 ng/mL [Mass/Vol] 128.29 ng/L Invalid Interpretation Code 0.00 - 54.00 ng/L ADM SS Comment on above: Interpretive Data: I f the High Sensitive Troponin result is below the 99th percentile value (<45 ng/L) at the first blood draw, at least two additional blood samples should be drawn before results are interpreted as negative for AMI. Troponin I.cardiac DL <= 0.01 ng/mL [Mass/Vol] 95.03 ng/L Invalid Interpretation Code 0.00 - 54.00 ng/L AH ADM SS Comment on above: Interpretive Data: I f the High Sensitive Troponin result is below the 99th percentile value (<45 ng/L) at the first blood draw, at least two additional blood samples should be drawn before results are interpreted as negative for AMI. LABORATORYOrdered By: Kenzie carmona on 09-16-2022 Lactate [Moles/Vol] 2.9 mmol/L Invalid Interpretation Code 0.2 - 2.0 mmol/L AH Auto Chem SS Lactate [Moles/Vol] 1.6 mmol/L Invalid Interpretation Code 0.2 - 2.0 mmol/L AH Auto Chem SS Barometric Pressure 732 mm[Hg] Invalid Interpretation Code AH Auto Chem SS Base excess Calc (Bld) [Moles/Vol] -0.5000 mmol/L Invalid Interpretation Code AH Auto Chem SS CO2 (Bld) [Partial pressure] 51.1 mm[Hg] Invalid Interpretation Code 32.0 - 46.0 mm Hg AH Auto Chem SS CO2 [Moles/Vol] 27.8 mmol/L Invalid Interpretation Code 22.0 - 30.0 mmol/L AH Auto Chem SS HCO3 (Bld) [Moles/Vol] 26.2 mmol/L Invalid Interpretation Code 21.0 - 29.0 mmol/L AH Auto Chem SS Oxygen (Bld) [Partial pressure] 78.7 mm[Hg] Invalid Interpretation Code 74.0 - 108.0 mm Hg AH Auto Chem SS pH (Bld) 7.328 [pH] Invalid Interpretation Code 7.380 - 7.460 AH Auto Chem SS Barometric Pressure 733 mm[Hg] Invalid Interpretation Code AH Auto Chem SS Base excess Calc (Bld) [Moles/Vol] -3.2000 mmol/L Invalid Interpretation Code AH Auto Chem SS CO2 (Bld) [Partial pressure] 83.2 mm[Hg] Invalid Interpretation Code 32.0 - 46.0 mm Hg AH Auto Chem SS Comment on above: Result Comment: read back by Rosalind Winkler CO2 [Moles/Vol] 30.7 mmol/L Invalid Interpretation Code 22.0 - 30.0 mmol/L AH Auto Chem SS HCO3 (Bld) [Moles/Vol] 28.1 mmol/L Invalid Interpretation Code 21.0 - 29.0 mmol/L Auto Chem SS Oxygen (Bld) [Partial pressure] 110.6 mm[Hg] Invalid Interpretation Code 74.0 - 108.0 mm Hg AH Auto Chem SS pH (Bld) 7.147 [pH] Invalid Interpretation Code 7.380 - 7.460 AH Auto Chem SS Comment on above: Result Comment: read back by Rosalind Winkler Natriuretic peptide.B prohormone N-Terminal [Mass/Vol] 5982 pg/mL Invalid Interpretation Code 0 - 900 pg/mL AH Auto Chem SS Comment on above: Interpretive Data: N T-proBNP results of less than 300 pg/mL effectively rules out acute congestive heart failure with 99% negative predictive value. LABORATORYOrdered By: Drea Lopez on 09-16-2022 ABO and Rh group Nom (Bld) Blood group B Rh(D) positive Invalid Interpretation Code BB Auto SS Blood group antibody screen Ql Negative ABSC (09/16/22 1:11 PM) Invalid Interpretation Code BB Auto SS LABORATORYOrdered By: Corey Adorno on 09-16-2022 INR Coag (PPP) [Relative time] 0.9 {INR} Invalid Interpretation Code Auto Coag SS Comment on above: Interpretive Data: T peggy [employer] (CHEST, 1992, 102:312S-25S) recommended therapeutic range for oral anticoagulant therapy is: LOW RISK: Prophylaxis of venous thrombosis INR: 2.0-3.0 Treatment of pulmonary embolism 2.0-3.0 Prevention of systemic embolism 2.0-3.0 HIGH RISK: Mechanical prosthetic valves 2.5-3.5 PT Coag (PPP) [Time] 10.1 s Invalid Interpretation Code 9.0 - 14.8 seconds Auto Coag SS Comment on above: Interpretive Data: E ffective 08/23/07, Protime results may be affected by some antibiotics (i.e. Ciprofloxacin, Azithromycin, Bactrim) which may potentiate the action of oral anticoagulants, with further increases in Protime/INR. LACon 09-16-2022 Lactic Acid Lvl 2.9 mmol/L High 0.2-2.0 [facility] ([place]) Comment on above: Performed By: #### M G, GFR, BMP #### [place] [address] Lactic Acid Lvl 1.6 mmol/L Normal 0.2-2.0 [facility] ([place]) Comment on above: Performed By: #### A PTT #### [address] [address] Lactic Acid Lvl 1.8 mmol/L Normal 0.2-2.0 [facility] ([place]) Comment on above: Performed By: #### L AC #### [address] [address] MGon 09-16-2022 Magnesium [Mass/Vol] 1.5 mg/dL Low 1.6-2.4 [facility] ([place]) Comment on above: Performed By: #### M G, GFR, BMP #### [address] [address] No Panel InformationOrdered By: Bola Krause on 09-16-2022 Culture Respiratory with Gram Stain Normal respiratory veronica present at 48 hours Sensitivity testing not indicated [facility] Comment on above: Requests for Mycopla sma, Legionella, Fungi, Mycobacteria, Chlamydia, and Viruses require ordering of those individual tests. GS Predominance of poly s 2+ Polymorphonuclear cells 1+ Epithelial cells 2+ Gram Positive Cocci Rare Gram Positive Rods [facility] Comment on above: Requests for Mycopla sma, Legionella, Fungi, Mycobacteria, Chlamydia, and Viruses require ordering of those individual tests. No Panel Informationon 09-16 Microscopic examination of blood, culture Culture has been received in lab and is no growth to date. Routine cultures are held for 5 days. [facility] Work Phone: Microscopic examination of blood, culture Culture has been received in lab and is no growth to date. Routine cultures are held for 5 days. [facility] Work Phone: Culture Urine No growth at 48 hours. [facility] Work Phone: Legionella Urine Ag Presumptive negative for L. pneumophila serogroup 1 antigen in urine, suggesting no recent or current infection. Legionnaire's disease cannot be ruled out since other serogroups and species may also cause disease. [facility] Work Phone: Streptococcus Pneumoniae Urine Antig Presumptive negative for pneumococcal pneumonia, suggesting no current or recent pneumococcal infection. Infection due to Strep pneumoniae cannot be ruled out since the antigen present in the sample may be below the detection limit of the test. [facility] Work Phone: Comment on above: This test has not be en evaluated on patients taking antibiotics for greater than 24 hours or on patients who have recently completed an antibiotic regimen. The accuracy of this test has not been proven in young children. PBNPon 09-16-2022 Natriuretic peptide B (Bld) [Mass/Vol] 5982 pg/mL High 0-900 [facility] ([place]) Comment on above: Result Comment: NT-p roBNP results of less than 300 pg/mL effectively rules out acute congestive heart failure with 99% negative predictive value. Performed By: #### H FP, CBC, ANEU, ADIFF #### [address] [address] PROon 09-16-2022 INR Coag (PPP) [Relative time] 0.9 {INR} Normal [facility] ([place]) Comment on above: Result Comment: [employer] (CHEST, 1992, 102:312S-25S) recommended therapeutic range for oral anticoagulant therapy is: LOW RISK: Prophylaxis of venous thrombosis INR: 2.0-3.0 Treatment of pulmonary embolism 2.0-3.0 Prevention of systemic embolism 2.0-3.0 HIGH RISK: Mechanical prosthetic valves 2.5-3.5 Performed By: #### H FP, CBC, ANEU, ADIFF #### [address] [address] PT Coag (PPP) [Time] 10.1 s Normal 9.0-14.8 [facility] ([place]) Comment on above: Result Comment: Effe ctive 08/23/07, Protime results may be affected by some antibiotics (i.e. Ciprofloxacin, Azithromycin, Bactrim) which may potentiate the action of oral anticoagulants, with further increases in Protime/INR. Performed By: #### H FP, CBC, ANEU, ADIFF #### [facility] [address] [place] [address] TROPHSon 09-16-2022 Troponin I High Sensitivity 128.29 ng/L High 0.00-54.00 [facility] ([place]) Comment on above: Result Comment: If t he High Sensitive Troponin result is below the 99th percentile value (<45 ng/L) at the first blood draw, at least two additional blood samples should be drawn before results are interpreted as negative for AMI. Performed By: #### H FP, CBC, ANEU, ADIFF #### [address] [address] Troponin I High Sensitivity 95.03 ng/L High 0.00-54.00 [facility] ([place]) Comment on above: Result Comment: If t he High Sensitive Troponin result is below the 99th percentile value (<45 ng/L) at the first blood draw, at least two additional blood samples should be drawn before results are interpreted as negative for AMI. Performed By: #### H FP, CBC, ANEU, ADIFF #### [address] [address] XR CHEST 1 VIEWon 09-16-2022 XR CHEST 1 VIEW ORIGINAL EXAMINATION: ONE XRAY VIEW OF THE CHEST09/16/2022 6:29 pm CHEST ONE VIEW AP/PA COMPARISON: 09/16/2022 HISTORY: ORDERING SYSTEM PROVIDED HISTORY: Reason for Exam: central line FINDINGS: The endotracheal tube is approximately 3.9 cm above the level the david. The enteric tube courses below the diaphragm with tip and side port below the diaphragm. There is a right internal jugular central venous catheter with its tip at the level of the upper SVC. The cardiomediastinal contours are normal. There is central perihilar consolidation with mixed interstitial and alveolar opacities in the right mid lung. There is no pleural effusion or pneumothorax. No acute osseous abnormality. IMPRESSION: Interval placement of a right internal jugular central venous catheter with tip at the level of the upper SVC. No significant change in aeration of the right lung. Interpreted by: Mary Cazares MD Preliminary Report By: Mary Cazares MD Electronically signed By Mary Cazares MD Dictated Date: 09/16/2022 7:29:53 PM Prelim Date: 09/16/2022 7:32:44 PM Sign Date: 09/16/2022 7:32:44 PM Ordering Provider: MIGUELINA Smith [facility] ([place]) XR CHEST 1 VIEW ORIGINAL EXAMINATION: ONE XRAY VIEW OF THE CHEST09/16/2022 1:21 pm COMPARISON: None. HISTORY: ORDERING SYSTEM PROVIDED HISTORY: Reason for Exam: chest pain FINDINGS: The cardiomediastinal contours are normal. Endotracheal tube projects 4.7 cm above the david. Masslike density projecting in the right parahilar region is approximately 5.1 cm. There is mixed interstitial and alveolar disease in the central and lower right lung. There is likely patchy airspace disease in the left lung base. No pneumothorax. Small pleural effusions not excluded. No aggressive osseous lesions identified. IMPRESSION: Masslike density projecting in the right parahilar region. CT thorax with contrast advised to exclude neoplasm. 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 Correlate for signs of atypical pneumonia. Follow to resolution Endotracheal tube as above Interpreted by: Bassam Rosales MD Preliminary Report By: Bassam Rosales MD Electronically signed By Bassam Rosales MD Dictated Date: 09/16/2022 1:22:52 PM Prelim Date: 09/16/2022 1:25:21 PM Sign Date: 09/16/2022 1:25:21 PM Ordering Provider: BASSAM Smith [facility] ([place]) XR ENTERIC TUBE PLACEMENTon 09-16-2022 XR ENTERIC TUBE PLACEMENT ORIGINAL EXAMINATION: ONE SUPINE XRAY VIEW(S) OF THE ABDOMEN09/16/2022 1:33 pm ABDOMEN 1 VIEW/KUB COMPARISON: None HISTORY: ORDERING SYSTEM PROVIDED HISTORY: Reason for Exam: og FINDINGS: Endotracheal tube projects 6.6 cm above the david. Enteric tube terminates at the gastric body level. Heart size is unchanged. Masslike density projects in the right parahilar region. 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 No visible pneumothorax. Small pleural effusions not excluded. IMPRESSION: Masslike density projecting the right parahilar region. CT thorax with contrast advised to exclude neoplasm. 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 Follow to resolution. Small pleural effusions not excluded Interpreted by: Bassam Rosales MD Preliminary Report By: Bassam Rosales MD Electronically signed By Bassam Rosales MD Dictated Date: 09/16/2022 1:34:50 PM Prelim Date: 09/16/2022 1:37:04 PM Sign Date: 09/16/2022 1:37:04 PM Ordering Provider: BASSAM Smith [facility] ([place]) Absolute lymphocyte counton 12-09-2021 Lymphocytes Auto (Unsp spec) [#/Vol] 1.11 10*3/uL 0.83-4.51 [facility] Work Phone: Basic Metabolic Profile (BMP )on 12-09-2021 BUN/CRE 10.6 RATIO Normal 10-20 [facility] Comment on above: Performed By: #### L 500.2500, L100.0100 ####[facility] [address] [place], [address] CA,Total 8.6 mg/dL Normal 8.5-10.1 [facility] Comment on above: Performed By: #### L 500.2500, L100.0100 ####[facility] [address] [place], [address] Chloride [Moles/Vol] 107 mmol/L Normal 98-107 [facility] Comment on above: Performed By: #### L 500.2500, L100.0100 ####[facility] [address] [place], [address] CO2 [Moles/Vol] 28.0 mmol/L Normal 21.0-32.0 [facility] Comment on above: Performed By: #### L 500.2500, L100.0100 ####[facility] [address] [place], [address] Creatinine [Mass/Vol] 0.85 mg/dL Normal 0.70-1.30 [facility] Comment on above: Result Comment: The validity of the calculated GFR GFRAA in patients over 70 years has not been determined. Clinical correlation is essential. Performed By: #### L 500.2500, L100.0100 ####[facility] [address] [place], [address] ECRCL 118.74 ml/min Normal [facility] Comment on above: Performed By: #### L 500.2500, L100.0100 ####[facility] [address] [place], [address] EST GFR - AA 120 mL/min Normal >60 [facility] Comment on above: Result Comment: Afri can [place] GFR Calc Performed By: #### L 500.2500, L100.0100 ####[facility] [address] [place], [address] GAP 4 Low 5-15 [facility] Comment on above: Performed By: #### L 500.2500, L100.0100 ####[facility] [address] [place], [address] GFR/1.73 sq M.predicted among non-blacks MDRD (S/P/Bld) [Vol rate/Area] 99 mL/min/{1.73_m2} Normal >60 [facility] Comment on above: Result Comment: Non- GFR Calc Performed By: #### L 500.2500, L100.0100 ####[facility] [address] [place], [address] Glucose [Mass/Vol] 175 mg/dL High 74-106 [facility] Comment on above: Result Comment: Fast ing Glucose result greater than or equal to 126 mg/dL suggests DIABETES MELLITUS per A.D.A. criteria. Performed By: #### L 500.2500, L100.0100 ####[facility] [address] [place], [address] Potassium [Moles/Vol] 3.9 mmol/L Normal 3.5-5.1 [facility] Comment on above: Performed By: #### L 500.2500, L100.0100 ####[facility] [address] [place], [address] Sodium [Moles/Vol] 139 mmol/L Normal 136-145 [facility] Comment on above: Performed By: #### L 500.2500, L100.0100 ####[facility] [address] [place], [address] Urea nitrogen [Mass/Vol] 9 mg/dL Normal 7-18 [facility] Comment on above: Performed By: #### L 500.2500, L100.0100 ####[facility] [address] [place], [address] Basophil percentageon 2021 Basophils/100 WBC (Bld) 0.5 % 0-1 [facility] Work Phone: Chloride [Moles/Vol] 107 mmol/L 98-107 [facility] Work Phone: Eosinophils/100 WBC (Bld) 1.6 % 0-5 [facility] Work Phone: Glucose [Mass/Vol] 175 mg/dL 74-106 [facility] Work Phone: Comment on above: Fasting Glucose resu lt greater than or equal to 126 mg/dL suggests DIABETES MELLITUS per A.D.A. criteria. Neutrophils (Bld) [#/Vol] 4.4 10*3/uL 2.0-7.7 [facility] Work Phone: Neutrophils/100 WBC (Bld) 70.4 % 47-70 [facility] Work Phone: Potassium [Moles/Vol] 3.9 mmol/L 3.5-5.1 [facility] Work Phone: Sodium [Moles/Vol] 139 mmol/L 136-145 [facility] Work Phone: WBC (Bld) [#/Vol] 6.2 10*3/uL 4.4-11.0 [facility] Work Phone: Bedside Glucoseon 12-09-2021 FINGERSTICK GLU 153 mg/dL High 74-106 [facility] Comment on above: Result Comment: PIOTR GEMENT OF PATIENT CARE PER NURSING PROTOCOL Performed By: #### L 501.080 #### [facility] [address] [place], [address] FINGERSTICK GLU 264 mg/dL High 74-106 [facility] Comment on above: Result Comment: PIOTR GEMENT OF PATIENT CARE PER NURSING PROTOCOL Performed By: #### L 300.4310 #### [facility] [address] [place], [address] Blood erythrocytes count (nu mber/volume)on 12-09-2021 RBC (Bld) [#/Vol] 4.54 10*6/uL 4.6-6.2 [facility] Work Phone: Blood hemoglobin measurement (mass/volume)on 12-09-2021 Hemoglobin (Bld) [Mass/Vol] 12.2 g/dL 13.0-16.5 [facility] Work Phone: Blood lymphocytes/100 leukoc yteson 12-09-2021 Lymphocytes/100 WBC (Bld) 17.9 % 19-41 [facility] Work Phone: Blood monocytes/100 leukocyt eson 12-09-2021 Monocytes/100 WBC (Bld) 9.4 % 0-10 [facility] Work Phone: Blood platelet mean volumeon 12-09-2021 Platelet mean volume (Bld) [Entitic vol] 11.5 fL 6.2-12.0 [facility] Work Phone: CBC W/Diff, Automatedon 11-0 Absolute Lymph 1.11 X10 3/uL Normal 0.83-4.51 [facility] Comment on above: Performed By: #### L 500.2500, L100.0100 #### [facility] [address] [place], [address] Absolute Neut 4.4 X10 3/uL Normal 2.0-7.7 [facility] Comment on above: Performed By: #### L 500.2500, L100.0100 #### [facility] [address] [place], [address] Basophils/100 WBC (Bld) 0.5 % Normal 0-1 [facility] Comment on above: Performed By: #### L 500.2500, L100.0100 #### [facility] [address] [place], [address] Eosinophils/100 WBC (Bld) 1.6 % Normal 0-5 [facility] Comment on above: Performed By: #### L 500.2500, L100.0100 #### [facility] [address] [place], [address] Erythrocyte distribution width (RBC) [Ratio] 16.3 % High 11.6-14.6 [facility] Comment on above: Performed By: #### L 500.2500, L100.0100 #### [facility] [address] [place], [address] Hematocrit (Bld) [Volume fraction] 37.8 % Low 40-54 [facility] Comment on above: Performed By: #### L 500.2500, L100.0100 #### [facility] [address] [place], [address] Hemoglobin (Bld) [Mass/Vol] 12.2 g/dL Low 13.0-16.5 [facility] Comment on above: Performed By: #### L 500.2500, L100.0100 #### [facility] [address] [place], [address] IG% 0.200 Normal 0.0-0.9 [facility] Comment on above: Result Comment: IG% - Immature Granulocytes (promyelocytes, myelocytes and metamyelocytes) > 1% indicates that a LEFT SHIFT is Present. Performed By: #### L 500.2500, L100.0100 #### [facility] [address] [place], [address] Lymphocytes/100 WBC (Bld) 17.9 % Low 19-41 [facility] Comment on above: Performed By: #### L 500.2500, L100.0100 #### [facility] [address] [place], [address] MCH (RBC) [Entitic mass] 26.9 pg Low 27.0-32.0 [facility] Comment on above: Performed By: #### L 500.2500, L100.0100 #### [facility] [address] [place], [address] MCHC (RBC) [Mass/Vol] 32.3 g/dL Normal 32-36 [facility] Comment on above: Performed By: #### L 500.2500, L100.0100 #### [facility] [address] [place], [address] MCV (RBC) [Entitic vol] 83.3 fL Normal 80-94 [facility] Comment on above: Performed By: #### L 500.2500, L100.0100 #### [facility] [address] [place], [address] Monocytes/100 WBC (Bld) 9.4 % Normal 0-10 [facility] Comment on above: Performed By: #### L 500.2500, L100.0100 #### [facility] [address] [place], [address] Neutrophils/100 WBC (Bld) 70.4 % High 47-70 [facility] Comment on above: Performed By: #### L 500.2500, L100.0100 #### [facility] [address] [place], [address] Nucleated RBC (Bld) [#/Vol] 0 10*3/uL Normal 0-5 [facility] Comment on above: Performed By: #### L 500.2500, L100.0100 #### [facility] [address] [place], [address] Platelet mean volume (Bld) [Entitic vol] 11.5 fL Normal 6.2-12.0 [facility] Comment on above: Performed By: #### L 500.2500, L100.0100 #### [facility] [address] [place], [address] Platelets (Bld) [#/Vol] 221 10*3/uL Normal 150-450 [facility] Comment on above: Performed By: #### L 500.2500, L100.0100 #### [facility] [address] [place], [address] RBC (Bld) [#/Vol] 4.54 10*6/uL Low 4.6-6.2 [facility] Comment on above: Performed By: #### L 500.2500, L100.0100 #### [facility] [address] [place], [address] RDW SD 49.4 fl High 35.1-43.9 [facility] Comment on above: Performed By: #### L 500.2500, L100.0100 #### [facility] [address] [place], [address] WBC (Bld) [#/Vol] 6.2 10*3/uL Normal 4.4-11.0 [facility] Comment on above: Performed By: #### L 500.2500, L100.0100 #### [facility] [address] [place], [address] Determination of erythrocyte mean corpuscular volume (MCV)on 12-09-2021 MCV (RBC) [Entitic vol] 83.3 fL 80-94 [facility] Work Phone: Discharge Instructionon 11-0 Discharge Instruction [facility] Medical Records Department [address] [place] [address] Instructions for Home/Discharge Instructions 12/09/21 1006 MR#: [id number] Acct: [id number] Name: OLIVER CRAMER II Rep #: [id number] : 1965 56 From: Jesus Aguila MD PCP: [facility] Status:ADM IN Discharge Instructions Diet Discharge Diet: Low fat / Low cholesterol Follow Up Care Test Results: Test results from this visit will be discussed in further detail at your follow-up appointment, if applicable. 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 He has CT primary care in [place]. Discharge Orders/Prescriptions Prescriptions: New atorvastatin 80 mg Tablet 80 mg PO QHS Qty: 30 2RF aspirin 81 mg Tablet,Chewable 81 mg PO BREAKFAST Qty: 30 2RF clopidogrel [Plavix] 75 mg tablet 75 mg PO DAILY Qty: 30 0RF Continued metformin 500 mg Tablet 1,000 mg PO BIDCM paroxetine HCl 10 mg Tablet 20 mg PO QHS trazodone 50 mg Tablet 50 mg PO QHS gabapentin 300 mg Capsule 300 mg PO TID fluticasone propionate 50 mcg/actuation [place],Suspension 2 spray INTRANASAL DAILY ascorbic acid (vitamin C) 500 mg Tablet 500 mg PO BIDCM Qty: 60 0RF nitroglycerin 0.4 mg Tablet, Sublingual 0.4 mg sublingual Q5M PRN (Reason: Cardiac/Chest Pain) Qty: 30 0RF carvedilol 6.25 mg tablet 6.25 mg PO BID Qty: 60 2RF Rx Instructions: must administer with a meal/food spironolactone 25 mg tablet 25 mg PO DAILY Qty: 30 1RF lisinopril 10 mg tablet 20 mg PO DAILY Rx Instructions: Hold for SBP less than 120 mmHg furosemide [Lasix] 40 mg tablet 40 mg PO BID Qty: 60 1RF Referrals / Follow Up: [facility] [Primary Care Provider] - Beto Kay MD [Med Staff - Active Staff] - Within 1 Month (If patient not able to see his oil refinery operator) Francisco Eid MD [Non-Staff -Ordering Privileges] - Within 2 Weeks Disposition Disposition (needs filled in before D/C Order can be placed): Home Health Service 12/09/21 1015 Jesus Aguila MD CC: Dr. Kavon Mandel MD; Dr. Beto Kay MD; [facility] Signed Normal [facility] Glucose Glucometer (BldC) [M ass/Vol]on 12-09-2021 Glucose [Mass/Vol] 153 mg/dL 74-106 [facility] Work Phone: Comment on above: MANAGEMENT OF PATIEN T CARE PER NURSING PROTOCOL Hematocrit Auto (Bld) [Volum e fraction]on 12-09-2021 Hematocrit (Bld) [Volume fraction] 37.8 % 40-54 [facility] Work Phone: Laboratory - Chemistry and C hemistry - challengeon 12-09-2021 CO2 [Moles/Vol] 28.0 mmol/L 21.0-32.0 [facility] Work Phone: [phone] Urea nitrogen/Creatinine [Mass ratio] 10.6 mg/mg 10-20 [facility] Work Phone: Laboratory - Coagulationon 1 02-08-2021 aPTT Coag (Bld) [Time] 29.4 s 24.1-36.2 [facility] Work Phone: [phone] Laboratory - Hematology and Cell countson 12-09-2021 Erythrocyte distribution width (RBC) [Entitic vol] 49.4 fL 35.1-43.9 [facility] Work Phone: Erythrocyte distribution width (RBC) [Ratio] 16.3 % 11.6-14.6 [facility] Work Phone: [phone] Immature granulocytes/100 WBC (Bld) 0.200 % 0.0-0.9 [facility] Work Phone: Comment on above: IG% - Immature Granu locytes (promyelocytes, myelocytes and metamyelocytes) > 1% indicates that a LEFT SHIFT is Present. MCH (RBC) [Entitic mass] 26.9 pg 27.0-32.0 [facility] Work Phone: Nucleated RBC/100 WBC (Bld) [Ratio] 0 % 0-5 [facility] Work Phone: [phone] MCHC Auto (RBC) [Mass/Vol]on 12-09-2021 MCHC (RBC) [Mass/Vol] 32.3 g/dL 32-36 [facility] Work Phone: [phone] No Panel Informationon 12-09 Estimated Creatinine Clearance Calc 118.74 ml/min [facility] Work Phone: Estimated GFR (MDRD) Amer 120 mL/min >60 [facility] Work Phone: Comment on above: GFR Calc Estimated GFR (MDRD) Non-Af Amer 99 mL/min >60 [facility] Work Phone: Comment on above: Non- GFR Calc Partial Thromboplast Timeon 12-09-2021 aPTT Coag (Bld) [Time] 29.4 s Normal 24.1-36.2 [facility] Comment on above: Performed By: #### L [id number] #### [facility] [address] [place], [address] Platelets bldon 12-09-2021 Platelets (Bld) [#/Vol] 221 10*3/uL 150-450 [facility] Work Phone: [phone] Serum or plasma calcium enmanuel urement (mass/volume)on 12-09-2021 Calcium [Mass/Vol] 8.6 mg/dL 8.5-10.1 [facility] Work Phone: [phone] Serum or plasma creatinine m easurement (mass/volume)on 12-09-2021 Creatinine [Mass/Vol] 0.85 mg/dL 0.70-1.30 [facility] Work Phone: [phone] Comment on above: The validity of the calculated GFR & GFRAA in patients over 70 years has not been determined. Clinical correlation is essential. Serum or plasma urea nitroge n measurement (mass/volume)on 12-09-2021 Urea nitrogen [Mass/Vol] 9 mg/dL 7-18 [facility] Work Phone: Thin prep Papanicolaou smear with manual screeningon 12-09-2021 Thin prep Papanicolaou smear with manual screening 4 5-15 [facility] Work Phone: Basic Metabolic Profile (BMP )on 12-08-2021 BUN/CRE 11.8 RATIO Normal 10-20 [facility] Comment on above: Performed By: #### L 501.5200, L500.2500, L100.0100 ####[facility] [address] [place], [address] CA,Total 7.9 mg/dL Low 8.5-10.1 [facility] Comment on above: Performed By: #### L 501.5200, L500.2500, L100.0100 ####[facility] [address] [place], [address] Chloride [Moles/Vol] 104 mmol/L Normal 98-107 [facility] Comment on above: Performed By: #### L 501.5200, L500.2500, L100.0100 ####[facility] [address] [place], [address] CO2 [Moles/Vol] 28.0 mmol/L Normal 21.0-32.0 [facility] Comment on above: Performed By: #### L 501.5200, L500.2500, L100.0100 ####[facility] [address] [place], [address] Creatinine [Mass/Vol] 0.93 mg/dL Normal 0.70-1.30 [facility] Comment on above: Result Comment: The validity of the calculated GFR GFRAA in patients over 70 years has not been determined. Clinical correlation is essential. Performed By: #### L 501.5200, L500.2500, L100.0100 ####[facility] [address] [place], [address] ECRCL 108.53 ml/min Normal [facility] Comment on above: Performed By: #### L 501.5200, L500.2500, L100.0100 ####[facility] [address] [place], [address] EST GFR - AA 108 mL/min Normal >60 [facility] Comment on above: Result Comment: Afri can Estonian GFR Calc Performed By: #### L 501.5200, L500.2500, L100.0100 ####[facility] [address] [place], [address] GAP 6 Normal 5-15 [facility] Comment on above: Performed By: #### L 501.5200, L500.2500, L100.0100 ####[facility] [address] [place], [address] GFR/1.73 sq M.predicted among non-blacks MDRD (S/P/Bld) [Vol rate/Area] 89 mL/min/{1.73_m2} Normal >60 [facility] Comment on above: Result Comment: Non- GFR Calc Performed By: #### L 501.5200, L500.2500, L100.0100 ####[facility] [address] [place], [address] Glucose [Mass/Vol] 255 mg/dL High 74-106 [facility] Comment on above: Result Comment: Gluc ose result greater than or equal to 200 mg/dL suggests DIABETES MELLITUS per A.D.A. criteria. Performed By: #### L 501.5200, L500.2500, L100.0100 ####[facility] [address] [place], [address] Potassium [Moles/Vol] 3.4 mmol/L Low 3.5-5.1 [facility] Comment on above: Performed By: #### L 501.5200, L500.2500, L100.0100 ####[facility] [address] [place], [address] Sodium [Moles/Vol] 138 mmol/L Normal 136-145 [facility] Comment on above: Performed By: #### L 501.5200, L500.2500, L100.0100 ####[facility] [address] [place], [address] Urea nitrogen [Mass/Vol] 11 mg/dL Normal 7-18 [facility] Comment on above: Performed By: #### L 501.5200, L500.2500, L100.0100 ####[facility] [address] [place], [address] Basophil percentageon 2021 Basophil percentage 2.8 mg/dL 2.5-4.9 [facility] Work Phone: Bedside Glucoseon 12-08-2021 FINGERSTICK GLU 273 mg/dL High 74-106 [facility] Comment on above: Result Comment: PIOTR GEMENT OF PATIENT CARE PER NURSING PROTOCOL Performed By: #### L 501.080 ####[facility] [address] [place], [address] FINGERSTICK GLU 265 mg/dL High 74-106 [facility] Comment on above: Result Comment: PIOTR GEMENT OF PATIENT CARE PER NURSING PROTOCOL Performed By: #### L 501.080 ####[facility] [address] [place], [address] FINGERSTICK GLU 192 mg/dL High 74-106 [facility] Comment on above: Result Comment: PIOTR GEMENT OF PATIENT CARE PER NURSING PROTOCOL Performed By: #### L 501.080 ####[facility] [address] [place], [address] FINGERSTICK GLU 271 mg/dL High 74-106 [facility] Comment on above: Result Comment: PIOTR VILL[place] OF PATIENT CARE PER NURSING PROTOCOL Performed By: #### L 501.080 #### [facility] [address] [place], [address] CBC W/Diff, Automatedon 10-3 Absolute Lymph 1.42 X10 3/uL Normal 0.83-4.51 [facility] Comment on above: Performed By: #### L 501.5200, L500.2500, L100.0100 ####[facility] [address] [place], [address] Absolute Neut 4.2 X10 3/uL Normal 2.0-7.7 [facility] Comment on above: Performed By: #### L 501.5200, L500.2500, L100.0100 ####[facility] [address] [place], [address] Basophils/100 WBC (Bld) 0.5 % Normal 0-1 [facility] Comment on above: Performed By: #### L 501.5200, L500.2500, L100.0100 ####[facility] [address] [place], [address] Eosinophils/100 WBC (Bld) 0.9 % Normal 0-5 [facility] Comment on above: Performed By: #### L 501.5200, L500.2500, L100.0100 ####[facility] [address] [place], [address] Erythrocyte distribution width (RBC) [Ratio] 16.5 % High 11.6-14.6 [facility] Comment on above: Performed By: #### L 501.5200, L500.2500, L100.0100 ####[facility] [address] [place], [address] Hematocrit (Bld) [Volume fraction] 37.0 % Low 40-54 [facility] Comment on above: Performed By: #### L 501.5200, L500.2500, L100.0100 ####[facility] [address] [place], [address] Hemoglobin (Bld) [Mass/Vol] 12.0 g/dL Low 13.0-16.5 [facility] Comment on above: Performed By: #### L 501.5200, L500.2500, L100.0100 ####[facility] [address] [place], [address] IG% 0.200 Normal 0.0-0.9 [facility] Comment on above: Result Comment: IG% - Immature Granulocytes (promyelocytes, myelocytes and metamyelocytes) > 1% indicates that a LEFT SHIFT is Present. Performed By: #### L 501.5200, L500.2500, L100.0100 ####[facility] [address] [place], [address] Lymphocytes/100 WBC (Bld) 22.5 % Normal 19-41 [facility] Comment on above: Performed By: #### L 501.5200, L500.2500, L100.0100 ####[facility] [address] [place], [address] MCH (RBC) [Entitic mass] 27.0 pg Normal 27.0-32.0 [facility] Comment on above: Performed By: #### L 501.5200, L500.2500, L100.0100 ####[facility] [address] [place], [address] MCHC (RBC) [Mass/Vol] 32.4 g/dL Normal 32-36 [facility] Comment on above: Performed By: #### L 501.5200, L500.2500, L100.0100 ####[facility] [address] [place], [address] MCV (RBC) [Entitic vol] 83.3 fL Normal 80-94 [facility] Comment on above: Performed By: #### L 501.5200, L500.2500, L100.0100 ####[facility] [address] [place], [address] Monocytes/100 WBC (Bld) 9.3 % Normal 0-10 [facility] Comment on above: Performed By: #### L 501.5200, L500.2500, L100.0100 ####[facility] [address] [place], [address] Neutrophils/100 WBC (Bld) 66.6 % Normal 47-70 [facility] Comment on above: Performed By: #### L 501.5200, L500.2500, L100.0100 ####[facility] [address] [place], [address] Nucleated RBC (Bld) [#/Vol] 0 10*3/uL Normal 0-5 [facility] Comment on above: Performed By: #### L 501.5200, L500.2500, L100.0100 ####[facility] [address] [place], [address] Platelet mean volume (Bld) [Entitic vol] 11.0 fL Normal 6.2-12.0 [facility] Comment on above: Performed By: #### L 501.5200, L500.2500, L100.0100 ####[facility] [address] [place], [address] Platelets (Bld) [#/Vol] 219 10*3/uL Normal 150-450 [facility] Comment on above: Performed By: #### L 501.5200, L500.2500, L100.0100 ####[facility] [address] [place], [address] RBC (Bld) [#/Vol] 4.44 10*6/uL Low 4.6-6.2 [facility] Comment on above: Performed By: #### L 501.5200, L500.2500, L100.0100 ####[facility] [address] [place], [address] RDW SD 50.7 fl High 35.1-43.9 [facility] Comment on above: Performed By: #### L 501.5200, L500.2500, L100.0100 ####[facility] [address] [place], [address] WBC (Bld) [#/Vol] 6.3 10*3/uL Normal 4.4-11.0 [facility] Comment on above: Performed By: #### L 501.5200, L500.2500, L100.0100 ####[facility] [address] [place], [address] Consult: SOC Tele Non-Emerge nton 12-08-2021 Consult: [facility] Tele Non-Emergent [facility] Medical Records Department [address] [place] [address] Telemedicine Confirmation Receipt 12/08/21 MR#: [id number] Acct: [id number] Name: OLIVER CRAMER II Rep #: [id number] : 1965 56 From: Jesus Aguila MD PCP: [facility] Status:ADM IN [facility] Telemed has confirmed receipt of a request for visit. This document confirms receipt of the order initiating the consult. To find the results of the consultation, please view the patient's reports for the scanned Telemed Consult. Normal [facility] - Chemistry and C hemistry - challengeon 12-08-2021 Magnesium [Mass/Vol] 1.9 mg/dL 1.6-2.6 [facility] Work Phone: Magnesiumon 12-08-2021 Magnesium [Mass/Vol] 1.9 mg/dL Normal 1.6-2.6 [facility] Comment on above: Performed By: #### L 501.5200, L500.2500, L100.0100 ####[facility] [address] [place], [address] Partial Thromboplast Timeon 12-08-2021 aPTT Coag (Bld) [Time] 55.4 s High 24.1-36.2 [facility] Comment on above: Order Comment: Comme nts: heparin gtt Performed By: #### L 300.4310 ####[facility] [address] [place], [address] aPTT Coag (Bld) [Time] 57.6 s High 24.1-36.2 [facility] Comment on above: Performed By: #### L 300.4310 ####[facility] [address] [place], [address] Phosphoruson 12-08-2021 Phosphate [Mass/Vol] 2.8 mg/dL Normal 2.5-4.9 [facility] Comment on above: Performed By: #### L 501.2300 ####[facility] [address] [place], [address] 12 Lead EKGon 12-07-2021 12 Lead EKG [facility] Cardiovascular Services [address] [place] [address] 12 Lead EKG 12/06/21 1814 MR#: [id number] Acct: [id number] Name: OLIVER CRAMER II Rep #: [id number] : 1965 56 From: Beto Kay MD Attending Dr: Dr. Jesus Aguila MD Status: DIS IN Ordering Dr: Beto Kay MD Date: 12/07/21 Location: [facility] Sex: M AA Admitted: 12/06/21 Test Reason : ADMISSION Blood Pressure : / mmHG Vent. Rate : 063 BPM Atrial Rate : 063 BPM P-R Int : 184 ms QRS Dur : 098 ms QT Int : 442 ms P-R-T Axes : 030 027 268 degrees QTc Int : 452 ms Normal sinus rhythm Possible Left atrial enlargement Left ventricular hypertrophy with repolarization abnormality ( Sokolow-Narayan , Enoch product , Romhilt-Noe ) vs myocardial ischemia Abnormal ECG Confirmed by DOMO URBAN, BETO ([id number]), newspaper editor managing DREA BELLE ([id number]) on 12/11/2021 7:45:39 AM Referred By: LILIANA Confirmed By:BETO KAY MD 12/11/2145 Date Beto Kay MD CC: Dr. Beto Kay MD; Dr. Jesus Aguila MD; [facility] Signed Normal [facility] Basic Metabolic Profile (BMP )on 12-07-2021 BUN/CRE 13.1 RATIO Normal - [facility] Comment on above: Performed By: #### L 300.4310 #### [facility] [address] [place], [address] CA,Total 8.0 mg/dL Low 8.5-10.1 [facility] Comment on above: Performed By: #### L 300.4310 #### [facility] [address] [place], [address] Chloride [Moles/Vol] 103 mmol/L Normal 98-107 [facility] Comment on above: Performed By: #### L 300.4310 #### [facility] [address] [place], [address] CO2 [Moles/Vol] 28.0 mmol/L Normal 21.0-32.0 [facility] Comment on above: Performed By: #### L 300.4310 #### [facility] [address] [place], [address] Creatinine [Mass/Vol] 0.99 mg/dL Normal 0.70-1.30 [facility] Comment on above: Result Comment: The validity of the calculated GFR GFRAA in patients over 70 years has not been determined. Clinical correlation is essential. Performed By: #### L 300.4310 #### [facility] [address] [place], [address] ECRCL 101.95 ml/min Normal [facility] Comment on above: Performed By: #### L 300.4310 #### [facility] [address] [place], [address] EST GFR - AA 101 mL/min Normal >60 [facility] Comment on above: Result Comment: Afri can Estonian GFR Calc Performed By: #### L 300.4310 #### [facility] [address] [place], [address] GAP 7 Normal 5-15 [facility] Comment on above: Performed By: #### L 300.4310 #### [facility] [address] [place], [address] GFR/1.73 sq M.predicted among non-blacks MDRD (S/P/Bld) [Vol rate/Area] 83 mL/min/{1.73_m2} Normal >60 [facility] Comment on above: Result Comment: Non- GFR Calc Performed By: #### L 300.4310 #### [facility] [address] [place], [address] Glucose [Mass/Vol] 175 mg/dL High 74-106 [facility] Comment on above: Result Comment: Fast ing Glucose result greater than or equal to 126 mg/dL suggests DIABETES MELLITUS per A.D.A. criteria. Performed By: #### L 300.4310 #### [facility] [address] [place], [address] Potassium [Moles/Vol] 3.4 mmol/L Low 3.5-5.1 [facility] Comment on above: Performed By: #### L 300.4310 #### [facility] [address] [place], [address] Sodium [Moles/Vol] 138 mmol/L Normal 136-145 [facility] Comment on above: Performed By: #### L 300.4310 #### [facility] [address] [place], [address] Urea nitrogen [Mass/Vol] 13 mg/dL Normal 7-18 [facility] Comment on above: Performed By: #### L 300.4310 #### [facility] [address] [place], [address] Basophil percentageon 2021 Cholesterol [Mass/Vol] 233 mg/dL <200 [facility] Work Phone: Comment on above: <200 mg/dL Desirable 200-240 mg/dL Borderline >240 mg/dL High Risk Triglyceride [Mass/Vol] 149 mg/dL <199 [facility] Work Phone: Comment on above: The drugs N-Acetylcy steine and Metamizole may falsely depress this assay.Serum Triglycerides Reference Interval Normal <150 mg/dL Borderline high 150 - 199 mg/dL High 200 - 499 mg/dL Very High > or = 500 mg/dL Bedside Glucoseon 12-07-2021 FINGERSTICK GLU 333 mg/dL High 74-106 [facility] Comment on above: Result Comment: PIOTR GEMENT OF PATIENT CARE PER NURSING PROTOCOL Performed By: #### L 501.080 #### [facility] [address] [place], [address] FINGERSTICK GLU 257 mg/dL High 74-106 [facility] Comment on above: Result Comment: PIOTR GEMENT OF PATIENT CARE PER NURSING PROTOCOL Performed By: #### L 501.080 #### [facility] [address] [place], [address] FINGERSTICK GLU 168 mg/dL High 74-106 [facility] Comment on above: Result Comment: PIOTR GEMENT OF PATIENT CARE PER NURSING PROTOCOL Performed By: #### L 501.080 #### [facility] [address] [place], [address] FINGERSTICK GLU 328 mg/dL High 74-106 [facility] Comment on above: Result Comment: PIOTR GEMENT OF PATIENT CARE PER NURSING PROTOCOL Performed By: #### L 300.4310 #### [facility] [address] [place], [address] Brain without Contraston Brain without Contrast [facility] Imaging Services [address] [place] [address] Brain without Contrast MR#: [id number] Acct: [id number] Name: OLIVER CRAMER II Rep #: [id number] : 1965 M 56 From: Moe Crawley MD PCP: [facility] Status: ADM IN Study: Brain without Contrast Date of Exam: 12/07/21 Exam# [id number] Ordering Dr: Kavon Mandel MD ADDENDUM by Dr. Moe Crawley MD on 12/07/21 at 1050 STUDY: MRI BRAIN WITHOUT CONTRAST REASON FOR EXAM: Male, 56 years old. CVA TECHNIQUE: Standardized multiplanar fat and water weighted pulse sequences were obtained. COMPARISON: CT FINDINGS: Normal size of the ventricles and extra-axial spaces for the patient''s age. There are multiple white matter hyperintensities, distributed throughout the deep white matter tracts of the cerebral hemispheres, consistent with moderate chronic white matter ischemic changes. There is left posterior frontal restricted diffusion with recent, acute or subacute, infarct, series 4 images through . Normal T2* images of the brain without demonstrated susceptibility artifact. There is no demonstrated hemosiderin stain. Normal bilateral basal ganglia. Normal thalami. There is no extra-axial fluid accumulation. Normal flow voids within the major intracranial circulation suggesting patency by spin echo criteria. Normal sella turcica, pituitary gland, infundibular stalk, optic chiasm and hypothalamus. Normal tectal plate and pineal gland. Normal midbrain, wally and medulla. Normal cerebellum. Normal basal cisterns. Normal bilateral temporal bones. Normal bilateral internal auditory canals. No demonstrated orbital abnormality, within the constraints of a routine brain study. There is mucosal thickening and polyp of left maxillary sinus. Normal calvarium and skull base. Normal visualized soft tissue structures. Normal visualized upper cervical spine. 12/07/21 1050 Date cc: Dr. Kavon Mandel MD; [facility] * Signed ADDENDUM by Dr. Moe Crawley MD on 12/07/21 at 1050 MRI/Brain without Contrast IMPRESSION: Involutional changes of the brain, as described above. Recent left frontal infarct. No hemorrhage. N.B. : Ana Rosa Zafar RN, confirmed on 12/07/2021 10:58:00 (ET) that the healthcare facility has received the radiology report. Electronically Signed: Moe Crawley MD at 10:50 EDT , 12/07/21 1104 Date cc: Dr. Kavon Mandel MD; [facility] * Signed ACR Level 3 findings have been noted. An addendum which confirms receipt of the report will follow. STUDY: MRI BRAIN WITHOUT CONTRAST REASON FOR EXAM: Male, 56 years old. CVA TECHNIQUE: Standardized multiplanar fat and water weighted pulse sequences were obtained. COMPARISON: CT FINDINGS: Normal size of the ventricles and extra-axial spaces for the patient''s age. There are multiple white matter hyperintensities, distributed throughout the deep white matter tracts of the cerebral hemispheres, consistent with moderate chronic white matter ischemic changes. There is left posterior frontal restricted diffusion with recent, acute or subacute, infarct, series 4 images through . Normal T2* images of the brain without demonstrated susceptibility artifact. There is no demonstrated hemosiderin stain. Normal bilateral basal ganglia. Normal thalami. There is no extra-axial fluid accumulation. Normal flow voids within the major intracranial circulation suggesting patency by spin echo criteria. Normal sella turcica, pituitary gland, infundibular stalk, optic chiasm and hypothalamus. Normal tectal plate and pineal gland. Normal midbrain, wally and medulla. Normal cerebellum. Normal basal cisterns. Normal bilateral temporal bones. Normal bilateral internal auditory canals. No demonstrated orbital abnormality, within the constraints of a routine brain study. There is mucosal thickening and polyp of left maxillary sinus. Normal calvarium and skull base. Normal visualized soft tissue structures. Normal visualized upper cervical spine. MRI/Brain without Contrast IMPRESSION: Involutional changes of the brain, as described above. Recent left frontal infarct. No hemorrhage. Electronically Signed: Moe Crawley MD at 10:50 EDT [place] Location ID and State: [address] [place] [address] , Service support , CC: Dr. Kavon Mandel MD; [facility] [employer] Maintainer: Signed [facility] Brain/Head without Contrasto n 12-07-2021 Brain/Head without Contrast [facility] Imaging Services [address] [place] [address] Brain/Head without Contrast MR#: [id number] Acct: [id number] Name: OLIVER CRAMER II Rep #: [id number] : 1965 M 56 From: Moe Crawley MD PCP: [facility] Status: ADM IN Study: Brain/Head without Contrast Date of Exam: 11/10 Exam# [id number] Ordering Dr: Jesus Aguila MD STUDY: CT BRAIN WITHOUT CONTRAST REASON FOR EXAM: Male, 56 years old. R/O hemorrhagic stroke. Headache on Heparin drip RADIATION DOSAGE (If Supplied By Facility): CTDIvol = ( 44.99 ) mGy, DLP = ( 779.24 ) mGycm TECHNIQUE: Transaxial CT imaging of the brain was performed without administration of intravenous contrast material. Individualized dose optimization techniques were used for this CT. COMPARISON: December 06, 2021 FINDINGS: Normal soft tissue structures. Normal calvarium. Normal size ventricles and extra-axial spaces for the patient''s age. There are areas of decreased attenuation within the white matter tracts of the supratentorial brain, consistent with microvascular disease changes. Stable left frontal diminished density suggesting infarct. Normal basal ganglia and thalami. Normal brainstem. Normal cerebellum. There is no intracranial hemorrhage. There are no findings of an acute ischemic infarction. Mucosal thickening of the left maxillary sinus. There is dehiscent right jugular bulb. CT/Brain/Head without Contrast IMPRESSION: Chronic involutional changes of the brain. Electronically Signed: Moe Crawley MD at 9:48 EDT , CC: Dr. Jesus Aguila MD; [facility] [employer] Maintainer: Signed [facility] CBC W/Diff, Automatedon 10-3 0-2021 Absolute Lymph 1.77 X10 3/uL Normal 0.83-4.51 [facility] Comment on above: Performed By: #### L 582.1916 #### [facility] [address] [place], [place], [id number] Absolute Neut 5.7 X10 3/uL Normal 2.0-7.7 [facility] Comment on above: Performed By: #### L 787.8295 #### [facility] [address] [place], [address] Basophils/100 WBC (Bld) 0.6 % Normal 0-1 [facility] Comment on above: Performed By: #### L 300.4310 #### [facility] [address] [place], [address] Eosinophils/100 WBC (Bld) 1.2 % Normal 0-5 [facility] Comment on above: Performed By: #### L 300.4310 #### [facility] [address] [place], [address] Erythrocyte distribution width (RBC) [Ratio] 16.8 % High 11.6-14.6 [facility] Comment on above: Performed By: #### L 300.4310 #### [facility] [address] [place], [address] Hematocrit (Bld) [Volume fraction] 38.9 % Low 40-54 [facility] Comment on above: Performed By: #### L 300.4310 #### [facility] [address] [place], [address] Hemoglobin (Bld) [Mass/Vol] 12.5 g/dL Low 13.0-16.5 [facility] Comment on above: Performed By: #### L 300.4310 #### [facility] [address] [place], [address] IG% 0.200 Normal 0.0-0.9 [facility] Comment on above: Result Comment: IG% - Immature Granulocytes (promyelocytes, myelocytes and metamyelocytes) > 1% indicates that a LEFT SHIFT is Present. Performed By: #### L 300.4310 #### [facility] [address] [place], [address] Lymphocytes/100 WBC (Bld) 21.2 % Normal 19-41 [facility] Comment on above: Performed By: #### L 300.4310 #### [facility] [address] [place], [address] MCH (RBC) [Entitic mass] 26.9 pg Low 27.0-32.0 [facility] Comment on above: Performed By: #### L 300.4310 #### [facility] [address] [place], [address] MCHC (RBC) [Mass/Vol] 32.1 g/dL Normal 32-36 [facility] Comment on above: Performed By: #### L 300.4310 #### [facility] [address] [place], [address] MCV (RBC) [Entitic vol] 83.8 fL Normal 80-94 [facility] Comment on above: Performed By: #### L 300.4310 #### [facility] [address] [place], [address] Monocytes/100 WBC (Bld) 7.9 % Normal 0-10 [facility] Comment on above: Performed By: #### L 300.4310 #### [facility] [address] [place], [address] Neutrophils/100 WBC (Bld) 68.9 % Normal 47-70 [facility] Comment on above: Performed By: #### L 300.4310 #### [facility] [address] [place], [address] Nucleated RBC (Bld) [#/Vol] 0 10*3/uL Normal 0-5 [facility] Comment on above: Performed By: #### L 300.4310 #### [facility] [address] [place], [address] Platelet mean volume (Bld) [Entitic vol] 11.0 fL Normal 6.2-12.0 [facility] Comment on above: Performed By: #### L 300.4310 #### [facility] [address] [place], [address] Platelets (Bld) [#/Vol] 251 10*3/uL Normal 150-450 [facility] Comment on above: Performed By: #### L 300.4310 #### [facility] [address] [place], [address] RBC (Bld) [#/Vol] 4.64 10*6/uL Normal 4.6-6.2 [facility] Comment on above: Performed By: #### L 300.4310 #### [facility] [address] [place], [address] RDW SD 51.4 fl High 35.1-43.9 [facility] Comment on above: Performed By: #### L 300.4310 #### [facility] [address] [place], [address] WBC (Bld) [#/Vol] 8.3 10*3/uL Normal 4.4-11.0 [facility] Comment on above: Performed By: #### L 300.4310 #### [facility] [address] [place], [address] Lipid Profileon 12-07-2021 Cholesterol [Mass/Vol] 233 mg/dL High 200 [facility] Comment on above: Result Comment: <200 mg/dL Desirable 200-240 mg/dL Borderline >240 mg/dL High Risk Performed By: #### L 300.4310 #### [facility] [address] [place], [address] Cholesterol in HDL [Mass/Vol] 49 mg/dL Normal [facility] Comment on above: Result Comment: The drugs N-Acetylcysteine and Metamizole may falsely depress this assay. Reference Range HDL <40 mg/dL Low HDL Cholesterol HDL >or= 60 mg/dL High HDL Cholesterol Performed By: #### L 300.4310 #### [facility] [address] [place], [address] Cholesterol in LDL [Mass/Vol] 154 mg/dL High 0-130 [facility] Comment on above: Performed By: #### L 300.4310 #### [facility] [address] [place], [address] Cholesterol in VLDL [Mass/Vol] 30 mg/dL Normal 5-40 [facility] Comment on above: Performed By: #### L 300.4310 #### [facility] [address] [place], [address] Triglyceride [Mass/Vol] 149 mg/dL Normal [facility] Comment on above: Result Comment: The drugs N-Acetylcysteine and Metamizole may falsely depress this assay. Serum Triglycerides Reference Interval Normal <150 mg/dL Borderline high 150 - 199 mg/dL High 200 - 499 mg/dL Very High > or = 500 mg/dL Performed By: #### L 300.4310 #### [facility] [address] [place], [address] Partial Thromboplast Timeon 12-07-2021 aPTT Coag (Bld) [Time] 39.3 s High 24.1-36.2 [facility] Comment on above: Performed By: #### L 300.4310 #### [facility] [address] [place], [address] aPTT Coag (Bld) [Time] 34.6 s Normal 24.1-36.2 [facility] Comment on above: Performed By: #### L 300.4310 #### [facility] [address] [place], [address] aPTT Coag (Bld) [Time] 49.4 s High 24.1-36.2 [facility] Comment on above: Order Comment: Comme nts: Heparin gtt Performed By: #### L 300.4310 #### [facility] [address] [place], [address] aPTT Coag (Bld) [Time] 45.1 s High 24.1-36.2 [facility] Comment on above: Performed By: #### L 300.4310 #### [facility] [address] [place], [address] Serum or plasma cholesterol in HDL measurement (mass/volume)on 12-07-2021 Cholesterol in HDL [Mass/Vol] 49 mg/dL >40 [facility] Work Phone: Comment on above: The drugs N-Acetylcy steine and Metamizole may falsely depress this assay. Reference Range HDL <40 mg/dL Low HDL Cholesterol HDL >or= 60 mg/dL High HDL Cholesterol Serum or plasma cholesterol in VLDL measurement (mass/volume)on 12-07-2021 Cholesterol in VLDL [Mass/Vol] 30 mg/dL 5-40 [facility] Work Phone: Serum or plasma low density lipoprotein (LDL) cholesterol measurement (mass/volume)on 12-07-2021 Cholesterol in LDL [Mass/Vol] 154 mg/dL 0-130 [facility] Work Phone: 12 Lead EKGon 12-06-2021 12 Lead EKG [facility] Cardiovascular Services [address] [place] [address] 12 Lead EKG 12/07/21 0543 MR#: [id number] Acct: [id number] Name: OLIVER CRAMER II Rep #: [id number] : 1965 56 From: Wilfredo Chapman MD Attending Dr: Dr. Jesus Aguila MD Status: ADM IN Ordering Dr: Kavon Mandel MD Date: 12/06/21 Location: [facility] Sex: M AA Admitted: 12/06/21 Test Reason : AM EKG Blood Pressure : / mmHG Vent. Rate : 078 BPM Atrial Rate : 078 BPM P-R Int : 186 ms QRS Dur : 096 ms QT Int : 418 ms P-R-T Axes : 038 021 262 degrees QTc Int : 476 ms Normal sinus rhythm Possible Left atrial enlargement Left ventricular hypertrophy with repolarization abnormality ( Sokolow-Narayan , Garner product , Romhilt-Noe ) Abnormal ECG When compared with ECG of 06-DEC-2021 14:35, MANUAL COMPARISON REQUIRED, DATA IS UNCONFIRMED Confirmed by LORAINE URBAN, WILFREDO ([id number]), newspaper editor managing DREA BELLE ([id number]) on 12/08/2021 12:58:17 PM Referred By: Confirmed By:WILFREDO CHAPMAN MD 12/08/21 1258 Date Wilfredo Chapman MD CC: Dr. Kavon Mandel MD; Dr. Jeuss Aguila MD; [facility] Signed [facility] 12 Lead EKG [facility] Cardiovascular Services [address] [place] [address] 12 Lead EKG 12/06/21 1435 MR#: [id number] Acct: [id number] Name: OLIVER CRAMER II Rep #: [id number] : 1965 56 From: Beto Kay MD Attending Dr: Dr. Jesus Aguila MD Status: ADM IN Ordering Dr: Beto Roberts MD Date: 12/06/21 Location: [facility] Sex: M AA Admitted: 12/06/21 Test Reason : STROKE TEAM Blood Pressure : / mmHG Vent. Rate : 077 BPM Atrial Rate : 077 BPM P-R Int : 184 ms QRS Dur : 098 ms QT Int : 430 ms P-R-T Axes : 026 016 242 degrees QTc Int : 486 ms Normal sinus rhythm Possible Left atrial enlargement Left ventricular hypertrophy ( R in aVL , Sokolow-Narayan , Enoch product , Romhilt-Noe ) ST T wave abnormality, consider lateral ischemia vs repolarization abnormality Prolonged QT Abnormal ECG Confirmed by DOMO URBAN, BETO ([id number]), newspaper editor managing DREA BELLE ([id number]) on 12/08/2021 9:20:32 AM Referred By: Confirmed By:BETO KAY MD 12/08/21 0920 Date Beto Kay MD CC: Dr. Beto Roberts MD; Dr. Jesus Aguila MD; [facility] Signed [facility] Absolute lymphocyte counton 12-06-2021 Lymphocytes Auto (Unsp spec) [#/Vol] 1.83 10*3/uL 0.83-4.51 [facility] Work Phone: Basic Metabolic Profile (BMP )on 12-06-2021 BUN/CRE 13.3 RATIO Normal 11-27 [facility] Comment on above: Order Comment: 'TROP ' Serial specimen #1, #2 or #3: 1 Performed By: #### L 501.080 #### [facility] [address] [place], [address] CA,Total 8.4 mg/dL Low 8.5-10.1 [facility] Comment on above: Order Comment: 'TROP ' Serial specimen #1, #2 or #3: 1 Performed By: #### L 501.080 #### [facility] [address] [place], [address] Chloride [Moles/Vol] 101 mmol/L Normal 98-107 [facility] Comment on above: Order Comment: 'TROP ' Serial specimen #1, #2 or #3: 1 Performed By: #### L 501.080 #### [facility] [address] [place], [address] CO2 [Moles/Vol] 29.0 mmol/L Normal 21.0-32.0 [facility] Comment on above: Order Comment: 'TROP ' Serial specimen #1, #2 or #3: 1 Performed By: #### L 501.080 #### [facility] [address] [place], [address] Creatinine [Mass/Vol] 1.20 mg/dL Normal 0.70-1.30 [facility] Comment on above: Order Comment: 'TROP ' Serial specimen #1, #2 or #3: 1 Result Comment: The validity of the calculated GFR GFRAA in patients over 70 years has not been determined. Clinical correlation is essential. Performed By: #### L 501.080 #### [facility] [address] [place], [address] ECRCL 84.11 ml/min Normal [facility] Comment on above: Order Comment: 'TROP ' Serial specimen #1, #2 or #3: 1 Performed By: #### L 501.080 #### [facility] [address] [place], [address] EST GFR - AA 81 mL/min Normal >60 [facility] Comment on above: Order Comment: 'TROP ' Serial specimen #1, #2 or #3: 1 Result Comment: Afri can Estonian GFR Calc Performed By: #### L 501.080 #### [facility] [address] [place], [address] GAP 5 Normal 5-15 [facility] Comment on above: Order Comment: 'TROP ' Serial specimen #1, #2 or #3: 1 Performed By: #### L 501.080 #### [facility] [address] [place], [address] GFR/1.73 sq M.predicted among non-blacks MDRD (S/P/Bld) [Vol rate/Area] 67 mL/min/{1.73_m2} Normal >60 [facility] Comment on above: Order Comment: 'TROP ' Serial specimen #1, #2 or #3: 1 Result Comment: Non- GFR Calc Performed By: #### L 501.080 #### [facility] [address] [place], [address] Glucose [Mass/Vol] 363 mg/dL High 74-106 [facility] Comment on above: Order Comment: 'TROP ' Serial specimen #1, #2 or #3: 1 Result Comment: Gluc ose result greater than or equal to 200 mg/dL suggests DIABETES MELLITUS per A.D.A. criteria. Performed By: #### L 501.080 #### [facility] [address] [place], [address] Potassium [Moles/Vol] 3.6 mmol/L Normal 3.5-5.1 [facility] Comment on above: Order Comment: 'TROP ' Serial specimen #1, #2 or #3: 1 Performed By: #### L 501.080 #### [facility] [address] [place], [address] Sodium [Moles/Vol] 135 mmol/L Low 136-145 [facility] Comment on above: Order Comment: 'TROP ' Serial specimen #1, #2 or #3: 1 Performed By: #### L 501.080 #### [facility] [address] [place], [address] Urea nitrogen [Mass/Vol] 16 mg/dL Normal 7-18 [facility] Comment on above: Order Comment: 'TROP ' Serial specimen #1, #2 or #3: 1 Performed By: #### L 501.080 #### [facility] [address] [place], [address] Basophil percentageon 2021 Basophils/100 WBC (Bld) 0.4 % 0-1 [facility] Work Phone: Chloride [Moles/Vol] 101 mmol/L 98-107 [facility] Work Phone: [phone] Eosinophils/100 WBC (Bld) 0.6 % 0-5 [facility] Work Phone: [phone] Glucose [Mass/Vol] 363 mg/dL 74-106 [facility] Work Phone: [phone] Comment on above: Glucose result great er than or equal to 200 mg/dLsuggests DIABETES MELLITUS per A.D.A. criteria. Neutrophils (Bld) [#/Vol] 7.6 10*3/uL 2.0-7.7 [facility] Work Phone: Neutrophils/100 WBC (Bld) 73.7 % 47-70 [facility] Work Phone: Potassium [Moles/Vol] 3.6 mmol/L 3.5-5.1 [facility] Work Phone: Sodium [Moles/Vol] 135 mmol/L 136-145 [facility] Work Phone: WBC (Bld) [#/Vol] 10.2 10*3/uL 4.4-11.0 [facility] Work Phone: Bedside Glucoseon 12-06-2021 FINGERSTICK GLU 358 mg/dL High 74-106 [facility] Comment on above: Result Comment: PIOTR VILLANUEVA OF PATIENT CARE PER NURSING PROTOCOL Performed By: #### L 300.4310 #### [facility] [address] [place] [address]. [place], [place], [id number] Blood erythrocytes count (nu mber/volume)on 12-06-2021 RBC (Bld) [#/Vol] 4.91 10*6/uL 4.6-6.2 [facility] Work Phone: Blood hemoglobin measurement (mass/volume)on 12-06-2021 Hemoglobin (Bld) [Mass/Vol] 13.6 g/dL 13.0-16.5 [facility] Work Phone: Blood lymphocytes/100 leukoc yteson 12-06-2021 Lymphocytes/100 WBC (Bld) 17.9 % 19-41 [facility] Work Phone: Blood monocytes/100 leukocyt eson 12-06-2021 Monocytes/100 WBC (Bld) 7.2 % 0-10 [facility] Work Phone: Blood platelet mean volumeon 12-06-2021 Platelet mean volume (Bld) [Entitic vol] 11.4 fL 6.2-12.0 [facility] Work Phone: CBC W/Diff, Automatedon 10- Absolute Lymph 1.83 X10 3/uL Normal 0.83-4.51 [facility] Comment on above: Performed By: #### L 501.080 #### [facility] [address] [place], [address] Absolute Neut 7.6 X10 3/uL Normal 2.0-7.7 [facility] Comment on above: Performed By: #### L 501.080 #### [facility] [address] [place], [address] Basophils/100 WBC (Bld) 0.4 % Normal 0-1 [facility] Comment on above: Performed By: #### L 501.080 #### [facility] [address] [place], [address] Eosinophils/100 WBC (Bld) 0.6 % Normal 0-5 [facility] Comment on above: Performed By: #### L 501.080 #### [facility] [address] [place], [address] Erythrocyte distribution width (RBC) [Ratio] 16.7 % High 11.6-14.6 [facility] Comment on above: Performed By: #### L 501.080 #### [facility] [address] [place], [address] Hematocrit (Bld) [Volume fraction] 40.7 % Normal 40-54 [facility] Comment on above: Performed By: #### L 501.080 #### [facility] [address] [place], [address] Hemoglobin (Bld) [Mass/Vol] 13.6 g/dL Normal 13.0-16.5 [facility] Comment on above: Performed By: #### L 501.080 #### [facility] [address] [place], [address] IG% 0.200 Normal 0.0-0.9 [facility] Comment on above: Result Comment: IG% - Immature Granulocytes (promyelocytes, myelocytes and metamyelocytes) > 1% indicates that a LEFT SHIFT is Present. Performed By: #### L 501.080 #### [facility] [address] [place], [address] Lymphocytes/100 WBC (Bld) 17.9 % Low 19-41 [facility] Comment on above: Performed By: #### L 501.080 #### [facility] [address] [place], [address] MCH (RBC) [Entitic mass] 27.7 pg Normal 27.0-32.0 [facility] Comment on above: Performed By: #### L 501.080 #### [facility] [address] [place], [address] MCHC (RBC) [Mass/Vol] 33.4 g/dL Normal 32-36 [facility] Comment on above: Performed By: #### L 501.080 #### [facility] [address] [place], [address] MCV (RBC) [Entitic vol] 82.9 fL Normal 80-94 [facility] Comment on above: Performed By: #### L 501.080 #### [facility] [address] [place], [address] Monocytes/100 WBC (Bld) 7.2 % Normal 0-10 [facility] Comment on above: Performed By: #### L 501.080 #### [facility] [address] [place], [address] Neutrophils/100 WBC (Bld) 73.7 % High 47-70 [facility] Comment on above: Performed By: #### L 501.080 #### [facility] [address] [place], [address] Nucleated RBC (Bld) [#/Vol] 0 10*3/uL Normal 0-5 [facility] Comment on above: Performed By: #### L 501.080 #### [facility] [address] [place], [address] Platelet mean volume (Bld) [Entitic vol] 11.4 fL Normal 6.2-12.0 [facility] Comment on above: Performed By: #### L 501.080 #### [facility] [address] [place], [address] Platelets (Bld) [#/Vol] 299 10*3/uL Normal 150-450 [facility] Comment on above: Performed By: #### L 501.080 #### [facility] [address] [place], [address] RBC (Bld) [#/Vol] 4.91 10*6/uL Normal 4.6-6.2 [facility] Comment on above: Performed By: #### L 501.080 #### [facility] [address] [place], [address] RDW SD 50.6 fl High 35.1-43.9 [facility] Comment on above: Performed By: #### L 501.080 #### [facility] [address] [place], [address] WBC (Bld) [#/Vol] 10.2 10*3/uL Normal 4.4-11.0 [facility] Comment on above: Performed By: #### L 501.080 #### [facility] [address] [place], [address] Chest 1 Viewon 12-06-2021 Chest 1 View [facility] Imaging Services [address] [place] [address] Chest 1 View MR#: [id number] Acct: [id number] Name: SHOAIBOLIVERJAQUAN GILL II Rep #: [id number] : 1965 M 56 From: Quentin Toledo PCP: [place] Status: ADM IN Study: Chest 1 View Date of Exam: 12/06/21 Exam# [id number] Ordering Dr: Beto Roberts MD STUDY: X-RAY CHEST REASON FOR EXAM: Male, 56 years old. CHEST PAIN Neuro deficit, acute, stroke suspected TECHNIQUE: XR Chest 1 View COMPARISON: None FINDINGS: There is no demonstrated pleural abnormality. Normal size heart. Normal mediastinum and ruy. Normal visualized pulmonary arteries. Normal visualized aortic arch and descending thoracic aorta. Normal visualized thoracic spine. Normal visualized ribs, clavicles, and shoulders. There is no demonstrated abnormality of the visualized soft tissue structures of the upper abdomen. RAD/Chest 1 View IMPRESSION: There are no acute findings. Electronically Signed: Quentin Lau MD at 17:31 EDT [place] Location ID and State: [facility] / [place] , Service support , CC: Dr. Beto Roberts MD; [facility] [employer] Maintainer: Signed [facility] Consultation - Cardiologyon 12-06-2021 Consultation - Cardiology [facility] Medical Records Department [address] [place] [id number] Consultation - Cardiology 12/06/21 1935 MR#: [id number] Acct: [id number] Name: OLIVER CRAMER II Rep #: [id number] : 1965 56 From: Beto Kay MD PCP: [place], [place] Status:ADM IN Location: [facility] [id number] Assessment Plan Assessment/Plan (1) Non-STEMI (non-ST elevated myocardial infarction): PLAN: The patient presents with abnormal troponin I levels appearing compatible with an acute non-ST segment elevation NH. At the moment it is unclear whether this is a type I event versus a type II event potentially related to the patient's hypertension and acute CVA event superimposed upon his history of left ventricular systolic dysfunction. The patient appears without acute coronary syndrome symptoms at this time. His ECG is as noted. At the present time the patient is being monitored. His cardiac enzymes and ECG will be followed. A request is made for her to follow-up transthoracic echocardiogram to evaluate his left ventricular wall motion and systolic function. In the interim he is being treated medically with a combination of aspirin, anticoagulants (neurologic dose), beta-blockers, afterload reducing agents, lipid-lowering agents. (2) Left ventricular systolic dysfunction (LVSD): PLAN: The patient has a history of left ventricular systolic dysfunction as previously noted. Based upon his history he has been following with the [facility] cardiology. It does not appear, based upon his history, that he has undergone additional noninvasive or invasive studies via the [facility]. He is continuing medical therapy at this time. His left ventricle can be reassessed with a transthoracic echocardiogram. (3) CHF (congestive heart failure): PLAN: The patient has a history of acute on chronic CHF. At the moment he appears without any acute symptoms. He does have symptoms of dyspnea as well as potentially orthopnea which compatible with his chronic CHF. He will need to be monitored for any acute changes. He will continue noninvasive valuation as noted. He will continue medical therapy with adjustment as deemed appropriate. (4) Acute CVA (cerebrovascular accident): PLAN: It appears the patient has experienced an acute CVA based upon his clinical presentation and objective findings. He remains dysarthric at this time. The [facility] emergency department staff discussed with the [facility] stroke center further evaluation and care. It appears that the patient has been placed on IV heparin (neurologic dose range). (5) HLD (hyperlipidemia): PLAN: The patient has a history of hyperlipidemia. He should continue risk factor modification medical therapy. (6) HTN (hypertension): PLAN: The patient's blood pressure was markedly elevated upon arrival. The patient will continue to have his blood pressure monitored. He will continue medical therapy with adjustment to bring his blood pressure under better control per neurology recommendations. (7) Diabetes mellitus: PLAN: The patient has history of diabetes mellitus. He will continue evaluation and care per internal medicine. Addt'l Comments Comment: [facility]-cardiology was contacted by the [facility] emergency department physician caring for the patient while the patient was in the [facility] emergency d epartment. The [facility] emergency department physician inquired regarding the pat ient's clinical course and additional cardiovascular recommendations with respect to antiplatelet th erapy and anticoagulant therapy for the possibility of an acute coronary syndrome/non-ST segment cristine vation NH. Status post a conversation with the [facility] emergency department phys ician caring for the patient regarding the patient's presentation and objective findings, it was rec ommended to the [facility] emergency department physician that neurology be contacte d based upon the patient's acute CVA for recommendations with respect to antiplatelet and anticoagul ant therapy in the setting of an acute CVA with the associated cardiovascular concerns. It was also recommended to the emergency department physician that the patient be transferred to a tertiary care center where the patient could receive onsite neurology evaluation as well as cardiovascular evalu ation taking into consideration that the patient's abnormal cardiac enzymes and ECG, if not related to an acute RIB CUTTER event and related to an acute coronary syndrome event, that could require additional cardiovascular evaluation including the possible need for diagnostic cardiac catheterization/revasc ularization therapy. The recommendation for transfer to a tertiary care center was to take into con sideration that if the patient's cardiovascular cl (more content not included)... Normal [facility] Determination of erythrocyte mean corpuscular volume (MCV)on 12-06-2021 MCV (RBC) [Entitic vol] 82.9 fL 80-94 [facility] Work Phone: Echo Completeon 12-06-2021 Echo Complete [facility] Cardi[facility] [address] [place] [address] Echo Complete 12/08/21 1045 MR#: [id number] Acct: [id number] Name: OLIVER CRAMER II Rep #: [id number] : 1965 56 From: Wilfredo Chapman MD Attending Dr: Dr. Jesus Aguila MD Status: ADM IN Ordering Dr: Kavon Mandel MD Date: 12/06/21 Location: [facility] Sex: M AA Admitted: 12/06/21 Reason For Study: TIA/CVA Procedure This was a 2D Doppler, Color Flow transthoracic echocardiogram. Exam performed portable in patient room. Left Ventricle Normal LV size. Moderate concentric left ventricular hypertrophy. The estimated ejection fraction is 50 %. There is mild global hypokinesis of the left ventricle. Right Ventricle Normal RV size. Normal systolic function. Atria The left atrium is moderately enlarged. Normal right atrium. Bubble contrast study negative for right to left interatrial shunt. Mitral Valve Bileaflet diffuse mitral valve thickening. Mild (1+) eccentric mitral valve insufficiency. Tricuspid Valve Normal tricuspid valve. Mild tricuspid valve insufficiency. Pulmonary artery systolic pressure is 35 mmHg. Aortic Valve Trisinus/trileaflet aortic valve. Pulmonic Valve Normal pulmonic valve. Great Vessels Normal aortic root. The pulmonary artery is normal size. Normal inferior vena cava. Pericardium/Pleural No pericardial effusion. Medication Performed a rapid injection of agitated mix of 9 cc saline and 1cc air to assess for atrial septal defect. MMode/2D Measurements Calculations LVIDd: 5.4 cm IVSd: 1.7 cm Ao root diam: 4.8 cm LVIDs: 4.4 cm LVPWd: 1.7 cm LA dimension: 4.9 cm RVDd: 4.1 cm FS: 18.5 % LAV(MOD-bp): 108.3 ml LA A4 area: 28.8 cm2 RA A4 area: 20.3 cm2 LAV(MOD-bp) Indexed: 48.5 ml/m2 LAV(MOD-sp2): 115.4 ml LAV(MOD-sp4): 102.8 ml Time Measurements MV dec time: 0.15 sec Doppler Measurements Calculations MV E max dillan: 84.9 cm/sec Lat Peak E' Dillan: 8.4 cm/sec Med Peak E' Dillan: 7.8 cm/sec MV A max dillan: 57.2 cm/sec E/E' lat: 10.1 E/E' med: 10.9 MV E/A: 1.5 MV V2 max: 92.6 cm/sec MV P1/2t max dillan: 93.4 cm/sec Ao V2 max: 95.6 cm/sec MV max P.4 mmHg MV P1/2t: 46.6 msec Ao max P.7 mmHg MV V2 mean: 44.8 cm/sec MV dec slope: 586.7 cm/sec2 Ao V2 mean: 70.8 cm/sec MV mean P.99 mmHg Ao mean P.2 mmHg MV V2 VTI: 18.9 cm MVA(P1/2t): 4.7 cm2 Ao V2 VTI: 21.1 cm LV V1 max: 73.9 cm/sec MR max dillan: 503.5 cm/sec PA V2 max: 59.5 cm/sec LV V1 max P.2 mmHg MR max P.4 mmHg LV V1 mean P.3 mmHg LV V1 mean: 55.4 cm/sec LV V1 VTI: 14.9 cm TR max dillan: 278.1 cm/sec TR max P.9 mmHg ECHO/Echo Complete Interpretation Summary Normal LV size. Moderate concentric left ventricular hypertrophy. The left atrium is moderately enlarged. Pulmonary artery systolic pressure is 35 mmHg. The estimated ejection fraction is 50 %. Bileaflet diffuse mitral valve thickening. Mild (1+) eccentric mitral valve insufficiency. Ordering Physician: Kavon Mandel Performed By: Johnnie Goel RCS 12/08/21 1400 Date Wilfredo Chapman MD CC: Dr. Kavon Mandel MD; Dr. Jesus Aguila MD; [facility] Date Dictated: 12/08/21 1045 Date Transcribed: 12/08/21 1400 [employer] Advanced Operator Maintainer: Signed Normal [facility] Emergency Department Summary on 12-06-2021 Emergency Department Summary [facility] Medical Records Department [address] [place] [address] Emergency Department Summary 12/06/21 MR#: [id number] Acct: [id number] Name: OLIVER CRAMER II Rep #: [id number] : 1965 56 From: Beto Roberts MD PCP: [facility],CT Status:ADM IN Location: [place] [address] HPI History of Present Illness Chief Complaint: Neuro S/Sx Narrative Narrative: Patient presents with slurred speech that started when he woke up this morning. He was okay going to bed around midnight last night and then he woke up with speech difficulty. He also has some right-sided facial droop. He tells me it is hard to find the words, per he was much worse this morning where he could not find any words and anything he said came out as gibberish. PFSH PFSH Medical History Anxiety Congestive heart failure Depression Diabetes mellitus, type 2 Dyslipidemia Hypertension Smoker Home Medications fluticasone propionate 50 mcg/actuation nasal spray,suspension 2 spray intranasal DAILY allergies 07/24/20 [History Last Taken Unknown] gabapentin 300 mg capsule 300 mg PO TID neuropathy 07/24/20 [History Last Taken Unknown] metformin 500 mg tablet 1,000 mg PO BIDCM diabetes 07/24/20 [History Last Taken Unknown] paroxetine HCl 10 mg tablet 20 mg PO QHS depression 07/24/20 [History Last Taken Unknown] trazodone 50 mg tablet 50 mg PO QHS sleep 07/24/20 [History Last Taken Unknown] ascorbic acid (vitamin C) 500 mg tablet 500 mg PO BIDCM #60 tabs 07/26/20 [Rx Last Taken Unknown] carvedilol 6.25 mg tablet 6.25 mg PO BID #60 tabs 07/26/20 [Rx Last Taken Unknown] furosemide 40 mg tablet (Lasix) 40 mg PO BID #60 tabs 07/26/20 [Rx Last Taken Unknown] nitroglycerin 0.4 mg sublingual tablet 0.4 mg sublingual Q5M PRN Cardiac/Chest Pain #30 tabs 07/26/20 [Rx Last Taken Unknown] spironolactone 25 mg tablet 25 mg PO DAILY #30 tabs 07/26/20 [Rx Last Taken Unknown] lisinopril 10 mg tablet 20 mg PO DAILY blood pressure 12/06/21 [History Last Taken Unknown] Allergy/AdvReac Type Severity Reaction Status Date / Time No Known Allergies Allergy Verified 12/06/21 14:04 Social History Smoking Status: Current every day smoker tobacco type: cigarettes ROS ROS ED ROS Narrative Past medical history: Reviewed, includes diabetes hypertension, hypercholesterolemia Medications: Reviewed Social history: Noncontributory Review of systems: All systems negative except as indicated General: No fever Eyes: No visual changes ENT: No upper airway congestion, Neck: No neck pain Cardiovascular: No chest pain Respiratory: No shortness of breath or cough Gastrointestinal: No abdominal pain, nausea vomiting or diarrhea Genitourinary: No dysuria Musculoskeletal: Denies myalgias no difficulty with ambulation Skin: No rash Neurological: As in HPI Psych: No recent behavioral changes Hematologic: No easy bleeding or easy bruising EXAM Physical Exam Narrative Exam Narrative: Physical exam General: Well nourished, Well developed, No Acute Distress Head: Normocephalic, Atraumatic Eyes: Conjunctiva not pale ENT: Moist mucous membranes Neck: Supple, Nontender, No lymphadenopathy Cardiovascular: Regular rate, Regular rhythm Respiratory: No distress, CTA bilaterally Abdomen: Soft, Nontender, Nondistended Back: Nontender, Normal Inspection. Negative for: CVA tenderness Extremities: Nontender, No edema Skin: Normal color, No rash Neurological: See NIH stroke scale Psychological: Normal affect Const Vital Signs: 12/06/21 13:58 12/06/21 14:30 12/06/21 14:30 Temperature 97.9 F Temperature Source Temporal Pulse Rate 99 82 82 Respiratory Rate 22 H 17 16 Blood Pressure 203/124 H 188/108 H 188/108 H Blood Pressure Mean 150 134 134 Pulse Ox 98 97 98 Oxygen Delivery Method Room Air Room Air Room Air 12/06/21 15:00 12/06/21 15:00 12/06/21 15:24 Temperature Temperature Source Pulse Rate 80 88 Respiratory Rate 17 17 Blood Pressure 161/109 H 161/109 H Blood Pressure Mean 126 126 Pulse Ox 98 98 98 Oxygen Delivery Method Room Air Room Air Room Air 12/06/21 15:39 Temperature Temperature Source Pulse Rate 77 Respiratory Rate 17 Blood Pressure 173/96 H Blood Pressure Mean 121 Pulse Ox 99 Oxygen Delivery Method Room Air NIHSS NIHSS Initial: 1a Level of Consciousness: 0 1b LOC Questions (Score 2 if aphasic/stupor): 0 1c LOC Commands (Only score 1st attempt): 0 2 Best Gaze (If aphasic, use reflexive mvmts.): 0 3 Visual: 0 4 Facial Palsy: 1 5 Motor Arm Right (UN = amputation/fusion): 0 5 Motor Arm Left: 0 6 Motor Leg Right: 0 6 Motor Leg Left: 0 7 Limb ataxia (Only + if out of proportion): 0 8 Sensory (Apha (more content not included)... Normal [facility] Glucose Glucometer (BldC) [M ass/Vol]on 12-06-2021 Glucose [Mass/Vol] 358 mg/dL 74-106 [facility] Work Phone: Comment on above: MANAGEMENT OF PATIEN T CARE PER NURSING PROTOCOL H AND P Exam - Hospitaliston 12-06-2021 H&P Exam - Hospitalist [facility] Medical Records Department [address] [place] [address] H P Exam - Hospitalist 12/06/21 1630 MR#: [id number] Acct: [id number] Name: OLIVER CRAMER II Rep #: [id number] : 1965 56 From: Kavon Mandel MD PCP: Hospital,CT Status:ADM IN Location: [place] [address] HPI - General General Date of Admission: 12/06/21 HPI Narrative OLIVER CRAMER, is a 56 M who presents to the hospital complaining of dysarthria. He went to bed last night and was normal but this morning he woke up and he had difficulty speaking. He can answer simple questions with yes and no but anything more in depth he has difficulty finding words. CTA of his head and neck is unremarkable and the CT of his brain shows a left frontal parietal lobe and a left parietal lobe ischemic infarction. When he also presented despite not having chest shortness of breath an initial troponin was obtained and it was 795. Because he is outside of the window for tPA the situation was discussed with neurology who felt that he would be safe on neurological protocol for heparin drip given his elevated troponin. He does have a cardiac history with a reduced EF as well as a stage II diastolic dysfunction. [facility] Medical History Anxiety Congestive heart failure Depression Diabetes mellitus, type 2 Dyslipidemia Hypertension Smoker Home Medications fluticasone propionate 50 mcg/actuation nasal spray,suspension 2 spray intranasal DAILY allergies 07/24/20 [History Last Taken Unknown] gabapentin 300 mg capsule 300 mg PO TID neuropathy 07/24/20 [History Last Taken Unknown] metformin 500 mg tablet 1,000 mg PO BIDCM diabetes 07/24/20 [History Last Taken Unknown] paroxetine HCl 10 mg tablet 20 mg PO QHS depression 07/24/20 [History Last Taken Unknown] trazodone 50 mg tablet 50 mg PO QHS sleep 07/24/20 [History Last Taken Unknown] ascorbic acid (vitamin C) 500 mg tablet 500 mg PO BIDCM #60 tabs 07/26/20 [Rx Last Taken Unknown] carvedilol 6.25 mg tablet 6.25 mg PO BID #60 tabs 07/26/20 [Rx Last Taken Unknown] furosemide 40 mg tablet (Lasix) 40 mg PO BID #60 tabs 07/26/20 [Rx Last Taken Unknown] nitroglycerin 0.4 mg sublingual tablet 0.4 mg sublingual Q5M PRN Cardiac/Chest Pain #30 tabs 07/26/20 [Rx Last Taken Unknown] spironolactone 25 mg tablet 25 mg PO DAILY #30 tabs 07/26/20 [Rx Last Taken Unknown] lisinopril 10 mg tablet 20 mg PO DAILY blood pressure 12/06/21 [History Last Taken Unknown] Allergy/AdvReac Type Severity Reaction Status Date / Time No Known Allergies Allergy Verified 12/06/21 14:04 Family History (Updated 12/06/21 @ 17:[address] Kavon Mandel MD) Other Diabetes Heart disease Hypertension Surgical History unable to obtain unable to obtain Social History Smoking Status: Current every day smoker tobacco type: cigarettes ROS Constitutional Constitutional: Denies chills, fatigue, fever(s) or malaise Eyes Eyes: Denies blurry vision ENT HEENT: Denies headache(s) or nasal discharge Cardiovascular Cardiovascular: Denies chest pain, dyspnea on exertion or syncope Respiratory/Chest Respiratory/Chest: Denies cough, shortness of breath at rest or shortness of breath with exertion Gastrointestinal Gastrointestinal: Denies constipation, diarrhea, nausea or vomiting Genitourinary Genitourinary: Denies dysuria Neurologic Neurologic: Reports abnormal speech; Denies focal weakness, numbness or tremor(s) Psychiatric Psychiatric: Denies anxiety or depression Vital Signs Vital Signs Vital Signs: 12/06/21 13:58 12/06/21 14:30 12/06/21 14:30 Temperature 97.9 F Temperature Source Temporal Pulse Rate 99 82 82 Respiratory Rate 22 H 17 16 Blood Pressure 203/124 H 188/108 H 188/108 H Blood Pressure Mean 150 134 134 Pulse Ox 98 97 98 Oxygen Delivery Method Room Air Room Air Room Air 12/06/21 15:00 12/06/21 15:00 12/06/21 15:24 Temperature Temperature Source Pulse Rate 80 88 Respiratory Rate 17 17 Blood Pressure 161/109 H 161/109 H Blood Pressure Mean 126 126 Pulse Ox 98 98 98 Oxygen Delivery Method Room Air Room Air Room Air 12/06/21 15:39 12/06/21 16:18 12/06/21 16:18 Temperature Temperature Source Pulse Rate 77 80 78 Respiratory Rate 17 19 H 21 H Blood Pressure 173/96 H 193/113 H 193/113 H Blood Pressure Mean 121 139 139 Pulse Ox 99 99 99 Oxygen Delivery Method Room Air Room Air Room Air Weight Weight: 208 lb 8.917 oz Body Mass Index (BMI) 26.0 Physical Exam Narrative General: Alert, Oriented x3, Cooperative, No apparent distress HEENT: Atraumatic, PERRLA, EOMI, Normocephalic Oral: Moist Mucosa Neck: Supple, No JVD Lungs: Clear to auscultation, Normal air movement, No rhonc (more content not included)... Normal [facility] Hematocrit Auto (Bld) [Volum e fraction]on 12-06-2021 Hematocrit (Bld) [Volume fraction] 40.7 % 40-54 [facility] Work Phone: INR in Blood by Coagulation assayon 12-06-2021 INR Coag (Bld) [Relative time] 1.0 {INR} [facility] Work Phone: [id number] 12-06-2021 TROPONIN-I HS 503 pg/mL Invalid Interpretation Code 3.0-78.0 [facility] Comment on above: Order Comment: Comme nts: SPECIMEN #3'TROP' Serial specimen #1, #2 or #3: 3 Result Comment: Plea se Note: New Test Units and Gender Specific Reference Ranges. For more information see Policy Stat Procedure [place] High Sensitivity Troponin (TNIH) and attachments. Performed By: #### L 300.4310 #### [facility] [address] [place], [address] TROPONIN-I HS 556 pg/mL Invalid Interpretation Code 3.0-78.0 [facility] Comment on above: Order Comment: Comme nts: SPECIMEN #2 'TROP' Serial specimen #1, #2 or #3: 2 Result Comment: Plea se Note: New Test Units and Gender Specific Reference Ranges. For more information see Policy Stat Procedure [place] High Sensitivity Troponin (TNIH) and attachments. Performed By: #### L [id number] #### [facility] [address] [place], [address] TROPONIN-I HS 795 pg/mL Invalid Interpretation Code 3.0-78.0 [facility] Comment on above: Order Comment: 'TROP ' Serial specimen #1, #2 or #3: 1 Result Comment: Joshuajulian ical Result(s) Called at: 14:48:11 12/06/2021 by: Reynaldo Becerra to Marcela WILBURN (ER). Results read back by same. Please Note: New Test Units and Gender Specific Reference Ranges. For more information see Policy Stat Procedure [place] High Sensitivity Troponin (TNIH) and attachments. Performed By: #### L 501.080 #### [facility] [address] [place], [place], [id number] Laboratory - Chemistry and C hemistry - challengeon 12-06-2021 CO2 [Moles/Vol] 29.0 mmol/L 21.0-32.0 [facility] Work Phone: Urea nitrogen/Creatinine [Mass ratio] 13.3 mg/mg 10- [facility] Work Phone: Laboratory - Coagulationon 1 aPTT Coag (Bld) [Time] 28.1 s 24.1-36.2 [facility] Work Phone: PT Coag (PPP) [Time] 12.6 s 11.7-14.9 [facility] Work Phone: Laboratory - Hematology and Cell countson 12-06-2021 Erythrocyte distribution width (RBC) [Entitic vol] 50.6 fL 35.1-43.9 [facility] Work Phone: Erythrocyte distribution width (RBC) [Ratio] 16.7 % 11.6-14.6 [facility] Work Phone: Immature granulocytes/100 WBC (Bld) 0.200 % 0.0-0.9 [facility] Work Phone: Comment on above: IG% - Immature Granu locytes (promyelocytes, myelocytes and metamyelocytes) > 1% indicates that a LEFT SHIFT is Present. MCH (RBC) [Entitic mass] 27.7 pg 27.0-32.0 [facility] Work Phone: Nucleated RBC/100 WBC (Bld) [Ratio] 0 % 0-5 [facility] Work Phone: MCHC Auto (RBC) [Mass/Vol]on 12-06-2021 MCHC (RBC) [Mass/Vol] 33.4 g/dL 32-36 [facility] Work Phone: No Panel Informationon 12-06 Troponin I High Sensitivity 503 pg/mL 3.0-78.0 [facility] Work Phone: Comment on above: Please Note: New Fernanda t Units and Gender Specific Reference Ranges. For more information see Policy Stat Procedure [place] High Sensitivity Troponin (TNIH) and attachments. Estimated Creatinine Clearance Calc 84.11 ml/min [facility] Work Phone: Estimated GFR (MDRD) Amer 81 mL/min >60 [facility] Work Phone: Comment on above: GFR Calc Estimated GFR (MDRD) Non-Af Amer 67 mL/min >60 [facility] Work Phone: Comment on above: Non- GFR Calc Troponin I High Sensitivity 795 pg/mL 3.0-78.0 [facility] Work Phone: Comment on above: Critical Result(s) C alled at: 14:48:11 12/06/2021 by: Reynaldo Medrano RN (ER). Results read back by same. Please Note: New Test Units and Gender Specific Reference Ranges. For more information see Policy Stat Procedure [place] High Sensitivity Troponin (TNIH) and attachments. Partial Thromboplast Timeon 12-06-2021 aPTT Coag (Bld) [Time] 28.1 s Normal 24.1-36.2 [facility] Comment on above: Performed By: #### L 501.080 #### [facility] [address] [place], [address] Platelets bldon 12-06-2021 Platelets (Bld) [#/Vol] 299 10*3/uL 150-450 [facility] Work Phone: Prothrombin Time w/INRon INR Normal [facility] Comment on above: Result Comment: DUPL ICATE Performed By: #### L [id number] #### [facility] [address] [place], [address] PROTIME Normal 11.7-14.9 [facility] Comment on above: Result Comment: DUPL ICATE Performed By: #### L [id number] #### [facility] [address] [place], [address] INR Coag (PPP) [Relative time] 1.0 {INR} [facility] Comment on above: Performed By: #### L [id number] #### [facility] [address] [place], [address] PT Coag (PPP) [Time] 12.6 s Normal 11.7-14.9 [facility] Comment on above: Performed By: #### L [id number] #### [facility] [address] [place], [address] STROKE Brain/Head without Co nton 12-06-2021 STROKE Brain/Head without Cont [facility] Imaging Services [address] [address] STROKE Brain/Head without Cont MR#: [id number] Acct: [id number] Name: OLIVER CRAMER II Rep #: [id number] : 1965 M 56 From: Quentin Toledo PCP: [facility] Status: REG ER Study: STROKE Brain/Head without Cont Date of Exam: Exam# [id number] Ordering Dr: Beto Roberts MD ADDENDUM by Dr. Quentin Lau MD on 12/06/21 at 1420 STUDY: CT BRAIN WITHOUT CONTRAST REASON FOR EXAM: Male, 56 years old. Neuro deficit, acute, stroke suspected Individualized dose optimization techniques were used for this CT. TECHNIQUE: Transaxial CT imaging of the brain was performed without administration of intravenous contrast material. COMPARISON: None FINDINGS: There are calcifications around the carotid artery. These are noted in the cavernous carotid arteries. Normal calvarium. Normal soft tissues. There is mild cerebral atrophy with widening of the extra-axial spaces and ventricular dilatation. There are areas of decreased attenuation within the white matter tracts of the supratentorial brain, consistent with microvascular disease changes. Normal basal ganglia and thalami. Normal brainstem. There is mild cerebellar atrophy. There is no intracranial hemorrhage. There are findings of areas of low-density in the left frontal parietal lobe and left parietal lobe suggesting an acute ischemic infarction. Se 2 IM32 and Se 2 IM: 26. Normal visualized paranasal sinuses. ASPECTS Score for Acute Strokes: 09/17 12/06/21 1420 Date cc: Dr. Beto Roberts MD; [facility] * Signed ADDENDUM by Dr. Quentin Lau MD on 12/06/[address]/STROKE Brain/Head without Cont IMPRESSION: There are findings of areas of low-density in the left frontal parietal lobe and left parietal lobe suggesting an acute ischemic infarction. Chronic involutional changes of the brain. Critical finding called and case discussed. N.B. : The above Results were Read Back by Quentin Lau MD to Beto Roberts MD, and understanding confirmed on 12/06/2021 14:23:33 (ET). Electronically Signed: Quentin Lau MD at 14:20 EDT , 12/06/21 1430 Date cc: Dr. Beto Roberts MD; [facility] * Signed We are attempting to reach an attending provider to discuss findings. An addendum with communication details will be sent when the communication is complete. STUDY: CT BRAIN WITHOUT CONTRAST REASON FOR EXAM: Male, 56 years old. Neuro deficit, acute, stroke suspected Individualized dose optimization techniques were used for this CT. TECHNIQUE: Transaxial CT imaging of the brain was performed without administration of intravenous contrast material. COMPARISON: None FINDINGS: There are calcifications around the carotid artery. These are noted in the cavernous carotid arteries. Normal calvarium. Normal soft tissues. There is mild cerebral atrophy with widening of the extra-axial spaces and ventricular dilatation. There are areas of decreased attenuation within the white matter tracts of the supratentorial brain, consistent with microvascular disease changes. Normal basal ganglia and thalami. Normal brainstem. There is mild cerebellar atrophy. There is no intracranial hemorrhage. There are findings of areas of low-density in the left frontal parietal lobe and left parietal lobe suggesting an acute ischemic infarction. Se 2 IM32 and Se 2 IM: 26. Normal visualized paranasal sinuses. ASPECTS Score for Acute Strokes: 09/17 CT/STROKE Brain/Head without Cont IMPRESSION: There are findings of areas of low-density in the left frontal parietal lobe and left parietal lobe suggesting an acute ischemic infarction. Chronic involutional changes of the brain. Critical finding called and case discussed. Electronically Signed: Quentin Lau MD at 14:20 EDT , CC: Dr. Beto Roberts MD; [facility] [employer] Maintainer: Signed Normal [facility] STROKE CTA Head AND Neck W/C onon 12-06-2021 STROKE CTA Head AND Neck W/Con [facility] Imaging Services [address] [place] [id number] STROKE CTA Head AND Neck W/Con MR#: [id number] Acct: [id number] Name: OLIVER CRAMER II Rep #: [id number] : 1965 M 56 From: Quentin Toledo PCP: [place] Status: [facility] Study: STROKE CTA Head AND Neck W/Con Date of Exam: Exam# [id number] Ordering Dr: Beto Roberts MD ADDENDUM by Dr. Quentin Lau MD on 12/06/21 at 1443 EXAM: CT ANGIOGRAPHY HEAD AND NECK WITH INTRAVENOUS CONTRAST CLINICAL INDICATION: Neuro deficit, acute, stroke suspected TECHNIQUE: [place] [facility] [place]/head and neck CT angiography protocol performed with intravenous contrast. This CT exam was performed using one or more of the following dose reduction techniques: automated exposure control, adjustment of the mA and/or kV according to patient size, and/or use of iterative reconstruction technique. This report was created using [employer] report generation technology. MIP reconstructed images were created and reviewed. CONTRAST: IV 100mL Isovue-300 RADIATION DOSE: CTDIvol = 43.40 mGy, DLP = 859.02 mGy-cm COMPARISON: None. FINDINGS: HEAD: RIGHT ANTERIOR CEREBRAL ARTERY: Unremarkable. No significant stenosis at the visualized segments. Anterior communicating artery is present. No aneurysm. RIGHT MIDDLE CEREBRAL ARTERY: Unremarkable. No significant stenosis at the visualized segments. No aneurysm. RIGHT POSTERIOR CEREBRAL ARTERY: Unremarkable. No occlusion or significant stenosis. No aneurysm. RIGHT INTRACRANIAL INTERNAL CAROTID ARTERY: See below. RIGHT INTRACRANIAL VERTEBRAL ARTERY: Unremarkable. No significant stenosis. No dissection or occlusion. LEFT ANTERIOR CEREBRAL ARTERY: Unremarkable. No significant stenosis at the visualized segments. No aneurysm. LEFT MIDDLE CEREBRAL ARTERY: Unremarkable. No significant stenosis at the visualized segments. No aneurysm. LEFT POSTERIOR CEREBRAL ARTERY: Unremarkable. No occlusion or significant stenosis. No aneurysm. LEFT INTRACRANIAL INTERNAL CAROTID ARTERY: See below. LEFT INTRACRANIAL VERTEBRAL ARTERY: Unremarkable. No significant stenosis. No dissection or occlusion. BASILAR ARTERY: Unremarkable. No significant stenosis. No aneurysm. OTHER VASCULATURE: There is mild atherosclerotic plaque formation of the origin of the right internal carotid artery with less than 50% cross sectional diameter stenosis. ALL ABOVE CRITERIA BY NASCET. There is mild atherosclerotic plaque formation of the origin of the left internal carotid artery with less than 50% cross sectional diameter stenosis. ALL ABOVE CRITERIA BY NASCET. There is calcified plaque formation of the right cavernous carotid artery, with a mild stenosis (less than 50%). ALL ABOVE CRITERIA BY NASCET. NECK: RIGHT COMMON CAROTID ARTERY: Unremarkable. No significant stenosis. No dissection or occlusion. RIGHT EXTRACRANIAL INTERNAL CAROTID ARTERY: See above. RIGHT EXTERNAL CAROTID ARTERY: Unremarkable. No occlusion. RIGHT EXTRACRANIAL VERTEBRAL ARTERY: Unremarkable. No significant stenosis. No dissection or occlusion. LEFT COMMON CAROTID ARTERY: Unremarkable. No significant stenosis. No dissection or occlusion. LEFT EXTRACRANIAL INTERNAL CAROTID ARTERY: See above. LEFT EXTERNAL CAROTID ARTERY: Unremarkable. No occlusion. LEFT EXTRACRANIAL VERTEBRAL ARTERY: Unremarkable. No significant stenosis. No dissection or occlusion. GREAT VESSELS OF AORTIC ARCH: There is calcified plaque formation of the left cavernous carotid artery, with a mild stenosis (less than 50%). ALL ABOVE CRITERIA BY NASCET. LUNG APICES: Unremarkable as visualized. HEAD and NECK: BONES/JOINTS: There are degenerative findings of the cervical spine. No discrete lytic or blastic abnormalities. SOFT TISSUES: Unremarkable. Critical finding called and case discussed. CAROTID STENOSIS REFERENCE USING NASCET CRITERIA: % ICA stenosis = (1 - narrowest ICA diameter/diameter of distal cervical ICA) x 100. Mild - <50% stenosis. Moderate - 50-69% stenosis. Severe - 70-94% stenosis. Near occlusion - 95-99% stenosis. Occluded - 100% stenosis. 12/06/21 1443 Date cc: Dr. Beto Roberts MD; [facility] * Signed ADDENDUM by Dr. Quentin Lau MD on 12/06/[address]/STROKE CTA Head AND Neck W/Con IMPRESSION: 1. There is mild atherosclerotic plaque formation of the origin of the right internal carotid artery with less than 50% cross sectional diameter stenosis. ALL ABOVE CRITERIA BY NASCET. 2. There is mild atherosclerotic plaque formation of the origin of the left internal carotid artery with less than 50% cross sectional diameter stenosis. ALL ABOVE CRITERIA BY NASCET. 3. There is calcified plaque formation of the right cavernous carotid artery, with a mild stenosis (less than 50%) (more content not included)... [facility] Serum or plasma calcium enmanuel urement (mass/volume)on 12-06-2021 Calcium [Mass/Vol] 8.4 mg/dL 8.5-10.1 [facility] Work Phone: Serum or plasma creatinine m easurement (mass/volume)on 12-06-2021 Creatinine [Mass/Vol] 1.20 mg/dL 0.70-1.30 [facility] Work Phone: Comment on above: The validity of the calculated GFR & GFRAA in patients over 70 years has not been determined. Clinical correlation is essential. Serum or plasma urea nitroge n measurement (mass/volume)on 12-06-2021 Urea nitrogen [Mass/Vol] 16 mg/dL 08-25 [facility] Work Phone: Thin prep Papanicolaou smear with manual screeningon 12-06-2021 Thin prep Papanicolaou smear with manual screening 06-22 [facility] Work Phone: CNPNon 06-08-2017 CNPN Telephone (FAMPWS) KATHYA GILLESPIESHRADDHA ([id number]) 1965 MDate Time Provider Department06/08/17 GENOVEVA RAZO) [facility] During your visit today, we recorded the following information about you:Genoveva Razo MA 06/08/2017 12:41 PM SignedPatient phone is not expecting calls at this time.Will send certified letter to patient.Per Teamlet meeting with Dr. Osuna.Lizet Aguiar MA 07/08/2017 8:27 AM SignedCertified Letter returned unsigned, has new address. I will resend thecertified Letter.Lizet Aguiar MA 07/13/2017 2:44 PM SignedCertified letter returned patient refuse the letter.Allergies As of Date: 06/08/2017(No Known Allergies)Date Reviewed: 09/24/2014Reviewed by: Meng Osuna - Fully AssessedReason for Visit: [facility] [[id number]]Prescriptions as of 06/08/2017 Sig: FERROUS SULFATE 325 MG (65 MG* Take 1 tablet by mouth twice * PYRIDOXINE (VITAMIN B6) 100 M* Take 1 tablet by mouth once d* TRAMADOL 50 MG TABLET Take 1 tablet by mouth twice * METFORMIN ER 750 MG TABLET,EX* Take 1 tablet by mouth daily * GLIPIZIDE ER 5 MG TABLET, EXT* Take 1 tablet by mouth once d* GABAPENTIN 100 MG CAPSULE Take one tab by mouth a day f* TADALAFIL 20 MG TABLET Take 1 tablet by mouth once d*Problem List As Of Date 06/08/2017 Noted Resolved DM type 2 (diabetes mellitus, type 2) (HCC) [E1*INVALID FOR* Priority: A Diabetic neuropathy (HCC) [E11.40] INVALID FOR* Priority: A Iron deficiency anemia [D50.9] INVALID FOR* Priority: A More... Smoker [F17.200] INVALID FOR* Priority: C More... Erectile dysfunction due to diseases classified*INVALID FOR* Elevated blood pressure reading without diagnos*INVALID FOR*Letter Text Meng Osuna M.D. [facility]Office: May 2017Ken Ahjxdy65[address] Reyna Klein [address] [place] [id number] Chary Cramer,Our office has been attempting to reach you by telephone and we were notsuccessful. The phone number we have on file for you is [phone] (home) .We have identified some questions that we would like to discuss to make surethat your health is fully optimized, so I have asked Sangeetha Aguiar contact you to discuss this further. Please contact her at the direct linelisted below at your first convenience to update your demographic informationand to discuss your health status.As your primary care physician, I would like to urge you to keep up withoptimal health care. Keeping up to date with routine preventive care andbest practices can greatly reduce your risk of a brain or heart attack, coloncancer, breast cancer, heart disease, high blood sugar complications andmore. Our team is very happy to assist you with discussing or schedulinganything you need.If for any reason you have established with a new primary care physician,please notify my office so that we can update our records to prevent anyfurther erroneous communications to you.Thank you for allowing us to be involved in your care.Sincerely,Enrrique Meng Rohit(Signed electronically to expedite mailing) Status:Closed by GENOVEVA RAZO on 06/08/17 Normal [facility] Vital Signs Date Time Vital Sign Value Performing Clinician Facility 08-28-2024 18:55-0400 Body temperature 98.1 [degF] [facility] 08-28-2024 18:55-0400 Diastolic blood pressure 80 mm[Hg] [facility] 08-28-2024 18:55-0400 Heart rate 57 /min [facility] 08-28-2024 18:55-0400 Respiratory rate 16 /min [facility] 08-28-2024 18:55-0400 SaO2% (BldA) [Mass fraction] 98 % [facility] 08-28-2024 18:55-0400 Systolic blood pressure 122 mm[Hg] [facility] 08-28-2024 15:36-0400 Body height 190.5 cm [facility] 08-28-2024 15:36-0400 Body mass index (BMI) [Ratio] 27.1 kg/m2 [facility] 08-28-2024 15:36-0400 Body weight 98.24 kg [facility] 09-20-2022 12:05-0400 Heart rate 100 /min DR ERIN DRISCOLL MD [facility] 09-20-2022 11:23-0400 Blood Pressure Cuff Size DR ERIN DRISCOLL MD [facility] 09-20-2022 11:23-[address] ERIN DRISCOLL MD [facility] 09-20-2022 11:23-[address] ERIN DRISCOLL MD [facility] 09-20-2022 11:23-0400 Body temperature 98.24 [degF] DR ERIN DRISCOLL MD [address] [place] [address] 09-20-2022 11:23-0400 Diastolic Blood Pressure Non-Invasive [address] ERIN DRISCOLL MD [address] [place] [address] 09-20-2022 11:23-0400 Heart rate 85 /min DR ERIN DRISCOLL MD [address] [place] [address] 09-20-2022 11:23-0400 Reason For Taking VItal Signs DR ERIN DRISCOLL MD [address] [place] [address] 09-20-2022 11:23-0400 Respiratory rate 20 /min DR ERIN DRISCOLL MD [address] [place] [address] 09-20-2022 11:23-0400 Systolic Blood Pressure Non-Invasive [address] ERIN DRISCOLL MD [address] [place] [address] 09-20-2022 09:11-0400 Diastolic Blood Pressure Non-Invasive [address] ERIN DRISCOLL MD [address] [place] [address] 09-20-2022 09:11-0400 Systolic Blood Pressure Non-Invasive [address] ERIN DRISCOLL MD [address] [place] [address] 09-20-2022 08:17-0400 Diastolic Blood Pressure Non-Invasive [address] ERIN DRISCOLL MD [address] [place] [address] 09-20-2022 08:17-0400 Systolic Blood Pressure Non-Invasive [address] ERIN DRISCOLL MD [address] [place] [address] 09-20-2022 07:09-04[address] Blood Pressure Cuff Size DR ERIN DRISCOLL MD [address] [place] [address] 09-20-2022 07:09-[address] ERIN DRISCOLL MD [address] [place] [address] 09-20-2022 07:09-[address] ERIN DRISCOLL MD [address] [place] [address] 09-20-2022 07:09-0400 Body temperature 98.42 [degF] DR ERIN DRISCOLL MD [address] [place] [address] 09-20-2022 07:09-0400 Heart rate 95 /min DR ERIN DRISCOLL MD [address] [place] [address] 09-20-2022 07:09-0400 Reason For Taking VItal Signs DR ERIN DRISCOLL MD [address] [place] [address] 09-20-2022 07:09-0400 Respiratory rate 20 /min DR ERIN DRISCOLL MD [address] [place] [address] 09-20-2022 03:56-04[address] Blood Pressure Cuff Size DR ERIN DRISCOLL MD [address] [place] [address] 09-20-2022 03:56-[address] ERIN DRISCOLL MD [address] [place] [address] 09-20-2022 03:56-[address] ERIN DRISCOLL MD [address] [place] [address] 09-20-2022 03:56-0400 Body temperature 97.52 [degF] DR ERIN DRISCOLL MD [address] [place] [address] 09-20-2022 03:56-0400 Reason For Taking VItal Signs DR ERIN DRISCOLL MD [address] [place] [address] 09-20-2022 03:56-0400 Respiratory rate 18 /min DR ERIN DRISCOLL MD [address] [place] [address] 09-19-2022 06:06-0400 Mean blood pressure 111 mm[Hg] DR ERIN DRISCOLL MD [address] [place] [address] 09-19-2022 05:21-0400 Mean blood pressure 105 mm[Hg] DR ERIN DRISCOLL MD [address] [place] [address] 09-19-2022 04:47-0400 Mean blood pressure 109 mm[Hg] DR ERIN DRISCOLL MD [address] [place] [address] 09-18-2022 13:08-0400 Diastolic blood pressure 70 mm[Hg] DR ERIN DRISCOLL MD [address] [place] [address] 09-18-2022 13:08-0400 Mean blood pressure 96 mm[Hg] DR ERIN DRISCOLL MD [address] [place] [address] 09-18-2022 13:08-0400 Systolic blood pressure 164 mm[Hg] DR ERIN DRISCOLL MD [address] [place] [address] 09-18-2022 12:35-0400 Diastolic blood pressure 66 mm[Hg] DR ERIN DRISCOLL MD [address] [place] [address] 09-18-2022 12:35-0400 Mean blood pressure 94 mm[Hg] DR ERIN DRISCOLL MD [address] [place] [address] 09-18-2022 12:35-0400 Systolic blood pressure 158 mm[Hg] DR ERIN DRISCOLL MD [address] [place] [address] 09-18-2022 11:58-0400 Diastolic blood pressure 45 mm[Hg] DR ERIN DRISCOLL MD [address] [place] [address] 09-18-2022 11:58-0400 Mean blood pressure 62 mm[Hg] DR ERIN DRISCOLL MD [address] [place] [address] 09-18-2022 11:58-0400 Systolic blood pressure 104 mm[Hg] DR ERIN DRISCOLL MD [address] [place] [address] 09-17-2022 09:33-0400 Body temperature 98.06 [degF] DR ERIN DRISCOLL MD [address] [place] [address] 09-17-2022 04:47-0400 SaO2% (BldA) [Mass fraction] 99.6 % DR ERIN DRISCOLL MD [facility] 09-16-2022 22:55-0400 Body temperature 97.7 [degF] DR ERIN DRISCOLL MD [address] [place] [address] 09-16-2022 20:59-0400 Body temperature 97.88 [degF] DR ERIN DRISCOLL MD [address] [place] [address] 09-16-2022 20:27-0400 Body height 182.[address] ERIN DRISCOLL MD [address] [place] [address] 09-16-2022 20:27-0400 Body weight 94.[address] ERIN DRISCOLL MD [address] [place] [address] 09-16-2022 20:27-0400 Body weight 28.25 kg/m2 DR ERIN DRISCOLL MD [address] [place] [address] 09-16-2022 16:49-0400 SaO2% (BldA) [Mass fraction] 94.7 % DR ERIN DRISCOLL MD [facility] 09-16-2022 13:50-0400 SaO2% (BldA) [Mass fraction] 96.4 % DR ERIN DRISCOLL MD [facility] 09-16-2022 13:06-0400 Heart rate 142 /min DR ERIN DRISCOLL MD [address] [place] [address] 09-16-2022 12:51-0400 Heart rate 148 /min DR ERIN DRISCOLL MD [address] [place] [address] 09-16-2022 12:24-0400 Body weight 94.[address] ERIN DRISCOLL MD [facility] 09-16-2022 12:24-0400 Heart rate 135 /min DR ERIN DRISCOLL MD [facility] 12-09-2021 13:23-0400 Body mass index (BMI) [Ratio] 24.9 kg/m2 [facility] Work Phone: 12-09-2021 10:00-0400 Body temperature 98.2 [degF] [facility] Work Phone: 12-09-2021 10:00-0400 Diastolic blood pressure 99 mm[Hg] [facility] Work Phone: 12-09-2021 10:00-0400 Heart rate 79 /min [facility] Work Phone: 12-09-2021 10:00-0400 Respiratory rate 16 /min [facility] Work Phone: 12-09-2021 10:00-0400 SaO2% (BldA) [Mass fraction] 97 % [facility] Work Phone: 12-09-2021 10:00-0400 Systolic blood pressure 170 mm[Hg] [facility] Work Phone: 12-07-2021 14:59-0400 Body height 190.5 cm [facility] Work Phone: 12-07-2021 14:59-0400 Body weight 90.44 kg [facility] Work Phone: 12-06-2021 17:39-0400 Diastolic blood pressure 116 mm[Hg] [facility] Work Phone: 12-06-2021 17:39-0400 Heart rate 71 /min [facility] Work Phone: 12-06-2021 17:39-0400 Respiratory rate 16 /min [facility] Work Phone: 12-06-2021 17:39-0400 SaO2% (BldA) [Mass fraction] 98 % [facility] Work Phone: 12-06-2021 17:39-0400 Systolic blood pressure 168 mm[Hg] [facility] Work Phone: 12-06-2021 16:55-0400 Body temperature 97.9 [degF] [facility] Work Phone: 12-06-2021 14:07-0400 Body height 190.5 cm [facility] Work Phone: 12-06-2021 14:07-0400 Body mass index (BMI) [Ratio] 26 kg/m2 [facility] Work Phone: 12-06-2021 14:07-0400 Body weight 94.6 kg [facility] Work Phone: Encounters Encounter Date Encounter Type Care Provider Facility Start: 08-28-2024 Evaluation and management of inpatient Dr. Meng Avelar DPM -[facility] 3 Work Phone: Start: 03-01-2023 End: 05-12-[address] Facility:B Start: 03-01-2023 End: 05-12-2023 Cardiac Rehab VANESSA KO MD [facility] Start: 02-16-2023 End: 02-17-[address] Facility:A Start: 02-16-2023 End: 02-16-2023 Patient encounter procedure DANIEL DAVISELECTRONICS PROCESSOR [facility] Start: 02-15-[address] Facility:B Start: 09-16-2022 End: 09-20-2022 Evaluation and management of inpatient CLINIC CT Facility:A Start: 09-16-2022 End: 09-20-2022 Evaluation and management of inpatient DR ERIN DRISCOLL MD [facility] Start: 12-11-2021 ambulatory [facility] Facility:[facility] Start: 12-09-2021 Evaluation and management of inpatient [facility] Facility:[facility] Start: 12-09-2021 Non-patient / Non-visit [facility] Start: 12-08-2021 Non-patient / Non-visit [facility] Start: 12-08-2021 ambulatory [facility] Facility:[facility] Start: 12-08-2021 Non-patient / Non-visit [facility] Start: 12-08-2021 Non-patient / Non-visit [facility] Start: 12-07-2021 Non-patient / Non-visit [facility] Start: 12-07-2021 Non-patient / Non-visit [facility] Start: 12-06-2021 Non-patient / Non-visit [facility] Start: 12-06-[address] [facility] Facility [facility] Start: 12-06-2021 End: 12-09-2021 Evaluation and management of inpatient [facility] Facility:[facility] Start: 12-06-2021 Non-patient / Non-visit [facility] Start: 12-06-2021 End: 12-09-2021 Evaluation and management of inpatient [facility] Procedures Date Procedure Procedure Detail Performing Clinician Start: 08-28-2024 X-ray of foot, three or more views [facility] Start: 08-28-2024 Estimated creatinine clearance [facility] Start: 02-16-2023 Echocardiography VANESSA KO MD Comment on above: 1. Left ventricle: T he cavity size is normal. Wall thickness is moderately increased. Concentric Left Ventricular Hypertrophy Systolic function is mildly reduced. The estimated ejection fraction is 40-45%. Wall motion is normal; there are no regional wall motion abnormalities. Grade I diastolic dysfunction. 2. Aortic valve: There is mild regurgitation. 3. Mitral valve: The annulus is mildly calcified. 4. Left atrium: The atrium is mildly dilated. 5. Right atrium: The atrium is mildly dilated. The estimated right atrial pressure is 3 mm Hg Start: 09-16-2022 Catheterization of b h left and right heart DANIEL JULIANNE LOPEZShots Comment on above: SUMMARY: 1. LAD: Proximal vessel lesion: There is a 30% stenosis. 2. Ramus intermedius: Mid-vessel lesion: There is a 70% stenosis. 3. Normal PCWP, normal CI. IMPRESSIONS: No evidence of cardiogenic shock (Normal filling pressures and high cardiac index). CAD in RI (70-80% CAD) - Unlikely contributing to clinical presentation. RECOMMENDATIONS: Eval for alternate etiologies of shock. Medical therapy for CAD. Consider PCI to RI if he has angina in future despite medical therapy. Start: 09-16-2022 Echocardiography DANIEL COWAN APRNShots Comment on above: 1. Left ventricle: T he cavity size is normal. Wall thickness is moderately increased. Systolic function is severely reduced. The estimated ejection fraction is 10% +/- 5%. There is severe diffuse hypokinesis. Possible apical thrombus. Diastolic dysfunction is present. The LVOT systolic velocity-time integral is 9.7 cm. 2. Ventricular septum: Thickness is moderately increased. 3. Right ventricle: The RV systolic pressure by Doppler is 27 mm Hg. 4. Right atrium: The estimated right atrial pressure is 8 mm Hg Start: 12-07-2021 CT of head without contrast [facility] Start: 12-07-2021 MRI of brain without contrast [facility] Start: 12-06-2021 Plain chest X-ray [facility] Start: 12-06-2021 CT angiography of he ad and neck [facility] Start: 12-06-2021 CT of head without contrast [facility] Plan of Treatment Date Care Activity Detail Author Start: 08-28-2024 Admission procedure [facility] Start: 08-28-2024 Amputation of toe Amputation Toe/Foot (Right) [facility] Start: 08-28-2024 Referral to vascular surgeon [facility] Start: 08-28-2024 Ankle brachial pressure index [facility] Start: 08-28-2024 [facility] Start: 08-28-2024 Hospital admission, emergency, from emergency room, medical nature [facility] Start: 08-28-2024 [facility] Start: 08-28-2024 Bacteria identified in Blood by Culture Blood Culture [facility] Start: 12-09-2021 Patient discharge [facility] Work Phone: Start: 12-06-2021 End: 12-06-2021 Following clinical pathway protocol [facility] Work Phone: Start: 12-06-2021 Transfusion of blood product [facility] Work Phone: Start: 12-06-2021 Ambulation without limitation [facility] Work Phone: Start: 12-06-2021 Assessment of risk of venous thromboembolism [facility] Work Phone: Start: 12-06-2021 Cardiac monitoring [facility] Work Phone: Start: 12-06-2021 Care regimes management [facility] Work Phone: Start: 12-06-2021 Catheterization of vein [facility] Work Phone: Start: 12-06-2021 Elevation of head of bed [facility] Work Phone: Start: 12-06-2021 Exercises [facility] Work Phone: Start: 12-06-2021 Implementation of planned interventions [facility] Work Phone: Start: 12-06-2021 Insertion of catheter into peripheral vein [facility] Work Phone: Start: 12-06-2021 Measuring intake and output [facility] Work Phone: Start: 12-06-2021 Notification of physician [facility] Work Phone: Start: 12-06-2021 Oxygen therapy [facility] Work Phone: Start: 12-06-2021 Patient referral to dietitian [facility] Work Phone: Start: 12-06-2021 Providing care according to standard [facility] Work Phone: Start: 12-06-2021 Referral to oil refinery operator [facility] Work Phone: Start: 12-06-2021 Referral to occupational therapist [facility] Work Phone: Start: 12-06-2021 Referral to service [facility] Work Phone: Start: 12-06-2021 Speech therapy assessment [facility] Work Phone: Start: 12-06-2021 Tobacco use cessation education [facility] Work Phone: Start: 12-06-2021 [facility] Work Phone: Start: 12-06-2021 Admission procedure [facility] Work Phone: Start: 12-06-2021 Verification routine [facility] Work Phone: Start: 12-06-2021 Oxygen therapy [facility] Work Phone: Start: 12-06-2021 [facility] Work Phone: Patient referral [facility] Work Phone: Immunizations Immunization Date Immunization Notes Care Provider Kurtis rod 12-07-2021 influenza, injectabl e, quadrivalent, preservative free [facility] 12-07-2021 influenza, seasonal, injectable [facility] Work Phone: 06-24-2020 Covid (Moderna) [facility] Payers Date Payer Category Payer Self-pay [id number] 2021 Unknown [id number] 1965 Unknown [id number] 2.16. [id number] 1965 Unknown [id number] 2.16.8 [id number] 1965 Unknown [id number] 2.16.8 [id number] 1965 Unknown [id number] 2.16.8 [id number] 1965 Unknown [id number] 2.16.8 [id number] Self-pay [id number] 03 Unknown [id number] 2.16.8 [id number] Unknown [id number] 2.16.8 [id number] Unknown [id number] 2.16.8 [id number] Unknown [id number] 2.16.8 [id number] Unknown [id number] 2.16.8 [id number] Unknown [id number] 2.16.8 [id number] Unknown [id number] 2.16.8 [id number] Unknown [id number] 2.16.8 [id number] Unknown [id number] 2.16.8 [id number] Unknown [id number] 2.16.8 [id number] Unknown [id number] 2.16.8 [id number] Social History Date Type Detail Facility Start: 12-06-2021 End: 12-09-2021 Tobacco smoking status NDIS Unknown if ever smoked [facility] Work Phone: Start: 1965 Sex Assigned At Male W [facility] Start: 12-09-2021 Cigarettes [facility] Start: 08-28-2024 Tobacco smoking status Smokes tobacco daily (finding) [facility] Sex Assigned At Sex [facility] Start: 12-23-2022 Tobacco smoking status Light tobacco smoker (finding) [facility] Goals Date Patient Goal Desired Activity /State Functional Status Date Assessment Result Facility 09-20-2022 Functional Status Door open, Room check performed [facility] 09-20-2022 Functional Status [facility] 09-20-2022 Functional Status [facility] 09-19-2022 Functional Status Ambulation Repositions self [facility] 09-19-2022 Functional Status [facility] 09-19-2022 Functional Status Skin moisturizer [facility] 09-19-2022 Functional Status [facility] 09-19-2022 Functional Status 3am-7am [facility] 09-17-2022 Functional Status [facility] 09-17-2022 Functional Status Done [facility] 09-16-2022 Functional Status Sensory Deficits None A [facility] 12-09-2021 Functional status Ambulates [facility] Work Phone: 12-08-2021 Functional status None [facility] Work Phone: Mental Status Date Assessment Result Facility 09-20-2022 Mental Status Orientation Oriented x 4 [facility] 09-20-2022 Mental Status [facility] 09-20-2022 Mental Status [facility] 09-19-2022 Mental Status Orientation Asse ssment Oriented x 4 [facility] 09-18-2022 Mental Status [facility] 09-18-2022 Mental Status [facility] 12-09-2021 Cognitive function Voice/Name [facility] Work Phone: Clinical Notes 12-09-2021 to 08-28-2024 Note Date & Type Note Facility 08-28-2024 Consult note [facility] 08-28-2024 Discharge summary [facility] 08-28-2024 Radiology Diagnostic study note [facility] Imaging Services [address] [place] [address] Foot min 3 Views MR#: [id number] Acct: [id number] Name: OLIVER CRAMER II Rep #: [id number] : 1965 M 59 From: Mahad Romero MD PCP: [facility] Status: REG ER Study:Foot min 3 Views Date of Exam: Exam# [id number] Ordering Dr: Johnnie Caballero DO PROCEDURE: RIGHT FOOT MIN 3 VIEWS 08/28/2024 REASON FOR EXAM: INFECTION, LARGE TOE TECHNIQUE: RIGHT FOOT MIN 3 VIEWS COMPARISON: None. FINDINGS: No acute fracture or dislocation. Osseous midfoot alignment is maintained, although with borderline pes planus deformity. Plantar calcaneal spurring. Somewhat ill-defined and irregular cortical marginsalong the anteromedial aspect of the 1st distal phalanx of the great toe, suspicious for osteomyelitis. No roxann cortical erosion/destruction. Preserved joint spaces. Qualitative osteopenia. Soft tissue swelling and subcutaneous gas at the distalaspect of the 1st toe, may reflect ulceration and/or infection with gas-forming organisms. No radiopaque foreign body. RAD/Foot min 3 Views IMPRESSION: 1. Soft tissue swelling and gas involving the 1st toe. 2. Ill-defined and irregular cortical margins along the anteromedial aspect of the right 1st distal phalanx, suspicious for associated osteomyelitis. Reading Location: [id number] CC: Dr. Johnine Vines, DO; [facility] ~ [employer] Maintainer: Signed [facility] 08-28-2024 Discharge summary Note Date/Time August 28, 2024 5:46pm [facility] Medical Records Department [address] [place] [address] Emergency Department Summary 08/28/24 MR#: [id number] Acct: [id number] Name: OLIVER CRAMER II Rep #:[id number] : 1965 59 From: Johnnie Diggs ggett DO [facility]: [facility] Status:REG ER Location: ED HPI History of Present Illness Chief Complaint: Lower Extremity Injury Narrative Narrative: Chief complaint and HPI: Right foot infection. 59-year-old male with past medical history of DM2, HTN, HLD, CHF presents for evaluation of right foot infection. Patient states he follows with a podiatry at the [facility] [place], he does not have the brand strategy manager name. He states several days ago he developed ecchymosis, swelling, erythema, pain in the large toe of his right foot. He denies any injury that he knows of. States he does have peripheral neuropathy. Redness, swelling, warmth, pain, increasing and moving up into the calf. He denies any fever, chills, nausea, vomiting. Review of systems: See HPI Medications: As listed on the chart Allergies: As listed on the chart PFSH: Per chart Vital signs: As listed on the chart. Reviewed. Physical exam: Gen: A&O x3, NAD Head: Normocephalic, atraumatic Eyes: No sclera icterus, conjunctiva clear ENT: Moist mucous membranes Neck: Trachea midline, No JVD CV: RRR, no murmurs, no peripheral edema Resp: Lungs CTA BL, no w/r/c GI: Abd soft, non-distended, non-tender, no r/r/g Musc: Full ROM, no deformity, patient has erythema, warmth, edema of the right large toe as well as the foot, ankle, distal calf. Area is mildly tender to palpation. He has ecchymosis to the dorsum of the large toe and slightly into the dorsal of the distal foot, no fluctuance/drainage/purulence/crepitus, toenail intact without obvious ulcer/laceration, DP/PT pulses diminished but dopplerable, compartments soft Skin: Warm, dry Neuro: Alert, oriented, grossly intact Psych: Cooperative, appropriate mood and affect [facility] Medical History (Updated 12/17/21 @ 00:01 by Background Daemon) Diabetes mellitus HTN (hypertension) HLD (hyperlipidemia) CHF (congestive heart failure) Left ventricular systolic dysfunction (LVSD) Non-STEMI (non-ST elevated myocardial infarction) Acute CVA (cerebrovascular accident) Congestive heart failure Diabetes mellitus, type 2 Dyslipidemia Depression Anxiety Smoker Hypertension Home Medications ?Medication ?Instructions ?Recorded ?Last Taken ?Type fluticasone propionate 50 2 spray intranasal DAILY all ergies 07/24/20 08/28/24 History mcg/actuation nasal spray,suspension gabapentin 300 mg capsule 300 mg PO TID neuropathy 08/28/24 History metformin 500 mg tablet 1,000 mg PO BIDCM diabetes 0 07/24/20 08/28/24 History trazodone 50 mg tablet 50 mg PO QHS sleep 07/24/20 08/27/24 History ascorbic acid (vitamin C) 500 mg 500 mg PO BIDCM #60 t abs 07/26/20 Unknown Rx tablet carvedilol 6.25 mg tablet 6.25 mg PO BID #60 tabs 07/0908/28/24 Rx nitroglycerin 0.4 mg sublingual 0.4 mg sublingual Q5M PRN 07/26/20 Unknown Rx tablet Cardiac/Chest Pain #30 tabs spironolactone 25 mg tablet 25 mg PO DAILY #30 tabs 08/28/24 Rx aspirin 81 mg chewable tablet 81 mg PO BREAKFAST #30 t abs 12/09/21 08/28/24 Rx atorvastatin 80 mg tablet 80 mg PO QHS #30 tabs 08/27/24 Rx ciclopirox 8 % topical solution 1 applic topical DAILY 08/28/24 08/28/24 History (Ciclodan) empagliflozin 25 mg tablet 25 mg PO DAILY 08/28/24 History (Jardiance) hydrophilic cream 1 applic topical TID PRN dry skin 08/28/24 08/28/24 History omeprazole 20 mg capsule,delayed 20 mg PO DAILY 08/28/24 History release paroxetine HCl 30 mg tablet 30 mg PO DAILY 08/28/24 History sacubitril 97 mg-valsartan 103 mg 1 tab PO BID 5 08/28/24 History tablet (Entresto) Allergy/AdvReac Type Severity Reaction Status Date / Time No Known Allergies Allergy Verified 08/28/24 15:37 Family History (Updated 12/06/21 @ 17:[address] Kavon Mandel MD) Other Diabetes Heart disease Hypertension Social History Smoking Status: Current every day smoker tobacco type: cigarettes EXAM Physical Exam Const Vital Signs: 08/28/24 15:36 08/28/24 16:41 08/28/24 17:00 Temperature 98.4 F 98.4 F 98.6 F Temperature Source Oral Oral Temporal Pulse Rate 67 59 L 58 L Respiratory Rate 16 18 17 Blood Pressure 145/88 H 137/70 H 146/70 H Blood Pressure Mean 107 92 95 Pulse Ox 100 97 99 Oxygen Delivery Method Room Air Room Air MDM MDM MDM Narrative Medical decision making narrative: 59-year-old male with past medical history of DM2, HTN, HLD, CHF presents for evaluation of right foot infection. Patient states he follows with a podiatry at the [facility] in [place], he does not have the brand strategy manager name. He states several days ago he developed ecchymosis, swelling, erythema, pain in the large toe of his right foot that is progressively worsening. See physical exam findings. Differential diagnosis includes but is not limited to cellulitis, osteomyelitis, fracture, bacteremia. NS bolus, morphine, Zofran ordered. Broad-spectrum antibiotics with Zosyn and vancomycin ordered. Infectious labs ordered including x-ray of the foot. CBC with mild leukocytosis 11.9. Patient has anemia with a hemoglobin of 10.4. Previous labs are from 2021 had anemia at that time. ESR elevated at 52. CRP elevated at 155. BMP consistent with renalinsufficiency and hyperglycemia. Patient is a known diabetic. Again labs are from 2021, unknown if this is chronic renal insufficiency or acute. X-ray of the right foot was personally reviewed interpreted by me, ED physician. No fracture or dislocation. Per radiology soft tissue swelling and gas involving the first toe. Ill-defined and irregular cortical margins along the anterior medial aspect of the right first distal phalanx, suspicious for osteomyelitis. Patient will warrant admission for IV antibiotics and possible amputation. I did reach out to podiatry and spoke with Dr. Avelar. He will come down to the emergency department and evaluate the patient for possible amputation today. Patient is n.p.o. and has not eaten today. Patient will warrant admission with the hospitalist service. Podiatry evaluated the patient, plan is for OR today. Patient was discussed with the hospitalist service who accepted admission. Patient was updated of all results and the plan. He confirmed understanding. Impression: 1. Right first toe osteomyelitis 2. Diabetic foot infection 3. Renal insufficiency 4. Hyperglycemia in a known diabetic Lab Data Labs: Laboratory Results - last 24 hr 08/28/24 16:05 WBC 11.9 H RBC 3.61 L Hgb 10.4 L Hct 31.1 L MCV 86.1 MCH 28.8 MCHC 33.4 RDW Std Deviation 39.1 RDW Coeff of Prudence 12.5 Plt Count 357 MPV 9.9 Immature Gran % (Auto) 0.500 Neut % (Auto) 77.5 H Lymph % (Auto) 13.4 L [place] % (Auto) 7.6 Eos % (Auto) 0.6 Baso % (Auto) 0.4 Absolute Neuts (auto) 9.2 H Absolute Lymphs (auto) 1.59 Nucleated RBC % 0 ESR 52 H Sodium 134 Potassium 4.0 Chloride 98 Carbon Dioxide 21.8 Anion Gap 15 BUN 24 H Creatinine 1.93 H Estim Creat Clear Calc 50.47 Est GFR (MDRD) Non-Af 40 L BUN/Creatinine Ratio 12.5 Glucose 201 H Lactic Acid 1.3 Calcium 9.0 C-React Prot Ext Range 155.00 H Radiography Diagnostic Testing: Clinical Impression(s) from Imaging Studies Foot X-Ray 08/28/24 16:32 IMPRESSION: 1. Soft tissue swelling and gas involving the 1st toe. 2. Ill-defined and irregular cortical margins along the anteromedial aspect of the right 1st distal phalanx, suspicious for associated osteomyelitis. Reading Location: [id number] Discharge Plan Triage Chief Complaint: Lower Extremity Injury ED Provider: Johnnie Vines Dx/Rx/DC Orders Prescriptions: No Action metformin 500 mg Tablet 1,000 mg PO BIDCM trazodone 50 mg Tablet 50 mg PO QHS gabapentin 300 mg Capsule 300 mg PO TID fluticasone propionate 50 mcg/actuation [place],Suspension 2 spray INTRANASAL DAILY ascorbic acid (vitamin C) 500 mg Tablet 500 mg PO BIDCM Qty: 60 0RF nitroglycerin 0.4 mg Tablet, Sublingual 0.4 mg sublingual Q5M PRN (Reason: Cardiac/Chest Pain) Qty: 30 0RF carvedilol 6.25 mg tablet 6.25 mg PO BID Qty: 60 2RF Rx Instructions: must administer with a meal/food spironolactone 25 mg tablet 25 mg PO DAILY Qty: 30 1RF atorvastatin 80 mg Tablet 80 mg PO QHS Qty: 30 2RF aspirin 81 mg Tablet,Chewable 81 mg PO BREAKFAST Qty: 30 2RF ciclopirox [Ciclodan] 8 % solution 1 applic topical DAILY paroxetine HCl 30 mg tablet 30 mg PO DAILY Entresto 97-103 mg tablet 1 tab PO BID hydrophilic cream Cream 1 applic topical TID PRN (Reason: dry skin) omeprazole 20 mg capsule,delayed release(DR/EC) 20 mg PO DAILY Jardiance 25 mg tablet 25 mg PO DAILY [facility]errals: [facility] [Primary Care Provider] - Print Language: Sinhala What to do if you have Problems For any increased pain, shortness of breath, bleeding, nausea or vomiting, chestpain, or any unexpected problems, contact your Primary Care Provider. Call [facility] ([phone]) or report to the closest Emergency Room. Call 911 if necessary. 08/28/24 1746 <Electronically signed by Johnnie Vnies DO> Cosigner Signature (if applicable): CC: [facility] ~ Signed [facility] Work Phone: 1(720) 109-827301-09-2024 Note* Exam Date Time Procedure Performing Provider Status 02/16/23 10:34 AM Echocardiogram, Adult - CV Auth (Verified) [facility] 08-14-2023 Note. MICRO - Microbiology PROCEDURE: Blood Culture (bacterial) [*1] SOURCE: Blood BODY SITE: COLLECTED DATE/TIME: 09/16/2022 19:37 EDT RECEIVED DATE/TIME: 09/16/2022 20:11 EDT START DATE/TIME: 09/16/2022 20:12 EDT FREE TEXT SOURCE: FINAL REPORTS Final Report [] Verified Date/Time/Personnel: 09/21/2022 20:59 EDT Blood Culture: No Growth at 5 days. PRELIMINARY REPORTS Preliminary Report [] Verified Date/Time/Personnel: 09/16/2022 21:00 EDT Culture has been received in lab and is no growth to date. Routine cultures are held for 5 days. Performing Locations *1: This test was performed at: [address], [address] [place], [place] [id number] Note. MICRO - Microbiology PROCEDURE: Blood Culture (bacterial) [*1] SOURCE: Blood BODY SITE: COLLECTED DATE/TIME: 09/16/2022 19:35 EDT RECEIVED DATE/TIME: 09/16/2022 20:11 EDT START DATE/TIME: 09/16/2022 20:12 EDT FREE TEXT SOURCE: FINAL REPORTS Final Report [] Verified Date/Time/Personnel: 09/21/2022 20:59 EDT Blood Culture: No Growth at 5 days. PRELIMINARY REPORTS Preliminary Report [] Verified Date/Time/Personnel: 09/16/2022 21:00 EDT Culture has been received in lab and is no growth to date. Routine cultures are held for 5 days. Performing Locations *1: This test was performed at: [address], [address] [place], [place] [address]9-20-2022 Hospital Discharge instructions Patient Education 09/20/2022 12:29:24 Acute Respiratory Distress Syndrome, Adult Acute Respiratory Distress Syndrome, Adult Acute respiratory distress syndrome is a life-threatening condition in which fluid collects in the lungs. This prevents the lungs from filling with air and passing oxygen into the blood. This can cause the lungs and other vital organs to fail. The condition usually develops following an infection, illness, surgery, or injury. What are the causes? This condition may be caused by: An infection, such as sepsis or pneumonia. A serious injury to the head or chest. Severe bleeding from an injury. A major surgery. Breathing in harmful chemicals or smoke. Blood transfusions. A blood clot in the lungs. Breathing in vomit (aspiration). Near-drowning. Inflammation of the pancreas (pancreatitis). A drug overdose. What are the signs or symptoms? Sudden shortness of breath and rapid breathing are the main symptoms of this condition. Other symptoms may include: A fast or irregular heartbeat. Skin, lips, or fingernails that look blue (cyanosis). Confusion. Tiredness or loss of energy. Chest pain, particularly while taking a breath. Coughing. Restlessness or anxiety. Fever. This is usually present if there is an underlying infection, such as pneumonia. How is this diagnosed? This condition is diagnosed based on: Your symptoms. Medical history. A physical exam. During the exam, your health care provider will listen to your heart and check forcrackling or wheezing sounds in your lungs. You may also have other tests to confirm the diagnosis and measure how well your lungs are working.These may include: Measuring the amount of oxygen in your blood. Your health care provider will use two methods to do this procedure: ?A small device (pulse oximeter) that is placed on your finger, earlobe, or toe. ?An arterial blood gas test. A sample of blood is taken from an artery and tested for oxygen levels. Blood tests. Chest X-rays or CT scans to look for fluid in the lungs. Taking a sample of your sputum to test for infection. Heart test, such as an echocardiogram or electrocardiogram. This is done to rule out any heart problems (such as heart failure) that may be causing your symptoms. Bronchoscopy. During this test, a thin, flexible tube with a light is passed into the mouth or nose, down the windpipe, and into the lungs. How is this treated? Treatment depends on the cause of your condition. The goal is to support you while your lungs heal and the underlying cause is treated. Treatment may include: Oxygen therapy. This may be done through: ?A tube in your nose or a face mask. ?A ventilator. This device helps move air into and out of your lungs through a breathing tube that is inserted into your mouth or nose. Continuous positive airway pressure (CPAP). This treatment uses mild air pressure to keep the airways open. A mask or other device will be placed over your nose or mouth. Tracheostomy. During this procedure, a small cut is made in your neck to create an opening to your windpipe. A breathing tube is placed directly into your windpipe. The breathing tube is connected toa ventilator. This is done if you have problems with your airway or if you need a ventilator for a long period of time. Positioning you to lie on your stomach (prone position). Medicines, such as: ?Sedatives to help you relax. ?Blood pressure medicines. ?Antibiotics to treat infection. ?Blood thinners to prevent blood clots. ?Diuretics to help prevent excess fluid. Fluids and nutrients given through an IV tube. Wearing compression stockings on your legs to prevent blood clots. Extra corporeal membrane oxygenation (ECMO). This treatment takes blood outside your body, adds oxygen, and removes carbon dioxide. The blood is then returned to your body. This treatment is only used in severe cases. Follow these instructions at home: Take [id number] and prescription medicines only as told by your health care provider. Do not use any products that contain nicotine or tobacco, such as cigarettes and e-cigarettes. If you need help quitting, ask your health care provider. Limit alcohol intake to no more than 1 drink per day for non women and 2 drinks per day formen. One drink equals 12 oz of beer, 5 oz of wine, or 1 oz of hard liquor. Ask friends and family to help you if daily activities make you tired. Attend any pulmonary rehabilitation as told by your health care provider. This may include: ?Education about your condition. ?Exercises. ?Breathing training. ?Counseling. ?Learning techniques to conserve energy. ?Nutrition counseling. Keep all follow-up visits as told by your health care provider. This is important. Contact a health care provider if: You become short of breath during activity or while resting. You develop a cough that does not go away. You have a fever. Your symptoms do not get better or they get worse. You become anxious or depressed. Get help right away if: You have sudden shortness of breath. You develop sudden chest pain that does not go away. You develop a rapid heart rate. You develop swelling or pain in one of your legs. You cough up blood. You have trouble breathing. Your skin, lips, or fingernails turn blue. These symptoms may represent a serious problem that is an emergency. Do not wait to see if the symptoms will go away. Get medical help right away. Call your local emergency services (911 in the [place] Do not drive yourself to the hospital. Summary Acute respiratory distress syndrome is a life-threatening condition in which fluid collects in the lungs, which leads the lungs and other vital organs to fail. This condition usually develops following an infection, illness, surgery, or injury. Sudden shortness of breath and rapid breathing are the main symptoms of acute respiratory distress syndrome. Treatment may include oxygen therapy, continuous positive airway pressure (CPAP), tracheostomy, lying on your stomach (prone position), medicines, fluids and nutrients given through an IV tube, compression stockings, and extra corporeal membrane oxygenation (ECMO). This information is not intended to replace advice given to you by your health care provider. Make sure you discuss any questions you have with your health care provider. Document Released: 01/25/2006 Document Revised: 01/07/2018 Document Reviewed: 01/11/2017 [employer] Patient Education [employer]. Follow Up Care 09/16/2022 12:27:06 With:Follow up with primary care provider Address:Unknown When:1-2 days With:ERIN DYE MD Address: [address] [facility] [place] [address] [place] [address] [phone] When:5 to 7 days Comments:Follow up with general cardiology within 1 week. With:VANESSA KO MD Address: [address] [facility] [address] [place] [phone] When:5 to 7 days Comments:Follow up with advanced heart failure team within 1 week. [facility] 08-13-2023 Note Discharge Instructions Thank you for allowing [facility] to assist you with your healthcare needs. The following is importantdischarge information regarding your hospital visit. Your Care Team [facility] Your Diagnosis SOB - Shortness of breath What to do next Follow Up Appointments Follow Up with Follow up with primary care provider When Within 1-2 days Follow Up with ERIN DYE MD When Within 5 to 7 days Why: Follow up with general cardiology within 1 week. Where: [address] [facility] [place] [address] [place] [phone] Follow Up with VANESSA KO MD When Within 5 to 7 days Why: Follow up with advanced heart failure team within 1 week. Where: [address] [facility] [address] [place] [address] [phone] The Following Activity and Diet Have Been Ordered for You Discharge Activity - Ordered -- NO activity restrictions, 09/20/22 12:06:00 EDT Discharge Diet - Ordered -- Type of Diet: Cardiac, Sodium limit: Low, No changes were made to your diet during your hospitalstay. Please resume your pre hospitalization diet on discharge., 09/20/22 12:06:00 EDT Discharge Fluid Restriction - Ordered -- 2,000 ml/day The Following Equipment Has Been Ordered for You No qualifying data available. The Following Treatments Have Been Ordered for You Discharge Labs Discharge Outpatient Labwork - Ordered -- BMP, Monitor kidney function, follow-up within: 3-5 days, Results Notify to: VANESSA KO MD, 09/20/22 12:06:00 EDT Discharge Radiology No qualifying data available. Other Therapies No qualifying data available. Post Acute Orders No qualifying data available. Someone Will Contact You Regarding These Home Health Referrals No home referrals have been ordered for you. No one will call you. Allergies NKA Medications Please ask your primary doctor or pharmacist before taking any other medication not listed, including over the counter drugs, herbal medications, vitamins and or supplements as they may interact withyour home medications. What How Much When Instructions Last Dose New apixaban (Eliquis 5 mg oral tablet) 1 tab(s) by mouth Two (2) times a day Refills: 3 Pickup at [facility]/pharmacy #[id number] New empagliflozin (Jardiance 10 mg oral tablet) 1 tab(s) by mouth Once a day (in the morning) Refills: 1 Pickup at [facility]/pharmacy #[id number] New sacubitril-valsartan (Entresto 49 mg-51 mg oral tablet) 1 tab(s) by mouth Two (2) times a day Refills: 3 Pickup at [facility]/pharmacy #[id number] Changed atorvastatin (atorvastatin 80 mg oral tablet) 1 tab(s) by mouth Daily at bedtime Pickup at [facility]/pharmacy #[id number] Changed clopidogrel (clopidogrel 75 mg oral tablet) 1 tab(s) by mouth Once a day Pickup at [facility]/pharmacy #[id number] Changed spironolactone (spironolactone 25 mg oral tablet) 1 tab(s) by mouth Once a day Pickup at [facility]/pharmacy #[id number] Changed traZODone (traZODone 50 mg oral tablet) 1 tab(s) by mouth Daily at bedtime Unchanged acetaminophen (acetaminophen 325 mg oral tablet) 2 tab(s) by mouth Every 4 hours as needed for as needed for pain Unchanged gabapentin (gabapentin 300 mg oral capsule) 1 cap by mouth Three (3) times a day Unchanged glipiZIDE (glipiZIDE 5 mg oral tablet) 1 tab(s) by mouth Twice daily with meals Unchanged metFORMIN (metFORMIN 500 mg oral tablet (IR)) 2 tab(s) by mouth Two (2) times a day Unchanged PARoxetine (PARoxetine 30 mg oral tablet) 1 tab(s) by mouth Daily at bedtime Pharmacy Information [facility]/pharmacy #[id number]: [address], [place] [phone] 1993 What How Much When Comments Stop Taking carvedilol (carvedilol 12.5 mg oral tablet) 1 tab(s) by mouth Two (2) times a day Stop Taking furosemide (furosemide 40 mg oral tablet) 1 tab(s) by mouth Two (2) times a day Stop Taking lisinopril (lisinopril 20 mg oral tablet) 1 tab(s) by mouth Once a day Please take this list to your next doctor s visit. Bring all medications you take, including over the counter medications, herbals and other supplements with you to your doctor s visit. Patients and families are reminded to discard old lists and to update any records with all medication providers or retail pharmacies. Medication Leaflets spironolactone (spir ON oh LAK tone) Aldactone, CaroSpir What is the most important information I should know about spironolactone? You should not use spironolactone if you Schoolcraft's disease, high levels of potassium in your blood,if you are unable to urinate, or if you are also taking eplerenone. What is spironolactone? Spironolactone is a potassium-sparing diuretic (water pill) that prevents your body from absorbing too much salt and keeps your potassium levels from getting too low. Spironolactone is used to treat heart failure, high blood pressure (hypertension), or hypokalemia (low potassium levels in the blood). Spironolactone also treats fluid retention (edema) in people with congestive heart failure, cirrhosis of the liver, or a kidney disorder called nephrotic syndrome. Spironolactone is also used to diagnose or treat a condition in which you have too much aldosteronein your body. Aldosterone is a hormone produced by your adrenal glands to help regulate the salt and water balance in your body. Spironolactone may also be used for purposes not listed in this medication guide. What should I discuss with my healthcare provider before taking spironolactone? You should not use spironolactone if you are allergic to it, or if you have: Erickson's disease (an adrenal gland disorder); high levels of potassium in your blood (hyperkalemia); if you are unable to urinate; or if you are also taking eplerenone. Tell your doctor if you have ever had: an electrolyte imbalance (such as low levels of calcium, magnesium, or sodium in your blood); kidney disease; liver disease; or heart disease. Tell your doctor if you are or plan to become . Having congestive heart failure, cirrhosis, or uncontrolled high blood pressure during may lead to medical problems in the mother or the baby. Your doctor should decide whether you take spironolactone if you are . It may not be safe to breastfeed while using this medicine. Ask your doctor about any risk. How should I take spironolactone? Follow all directions on your prescription label and read all medication guides or instruction sheets. Your doctor may occasionally change your dose. Use the medicine exactly as directed. Do not share this medicine with another person, even if they have the same symptoms you have. You may take spironolactone with or without food, but take it the same way each time. You will need frequent medical tests. This medicine can affect the results of certain medical tests. Tell any doctor who treats you that you are using spironolactone. If you need surgery, tell your surgeon you currently use this medicine. You may need to stop for a short time. If you are being treated for high blood pressure, keep using this medication even if you feel well.High blood pressure often has no symptoms. You may need to use blood pressure medication for the rest of your life. Store at room temperature away from heat, light, and moisture. What happens if I miss a dose? Take the medicine as soon as you can, but skip the missed dose if it is almost time for your next dose. Do not take two doses at one time. What happens if I overdose? Seek emergency medical attention or call the Poison Help line at . What should I avoid while taking spironolactone? Drinking alcohol can increase certain side effects. Do not use potassium supplements or salt substitutes, unless your doctor has told you to. Avoid a diet high in salt. Too much salt will cause your body to retain water and can make this medication less effective. Avoid driving or hazardous activity until you know how this medicine will affect you. Your reactions could be impaired. Avoid getting up too fast from a sitting or lying position, or you may feel dizzy. What are the possible side effects of spironolactone? Get emergency medical help if you have signs of an allergic reaction: hives; difficulty breathing; swelling of your face, lips, tongue, or throat. Call your doctor at once if you have: a light-headed feeling, like you might pass out; little or no urination; high potassium level--nausea, weakness, tingly feeling, chest pain, irregular heartbeats, loss of movement; o signs of other electrolyte imbalances--increased thirst or urination, confusion, vomiting, muscle pain, slurred speech, severe weakness, numbness, loss of coordination, feeling unsteady. Common side effects may include: breast swelling or tenderness. This is not a complete list of side effects and others may occur. Call your doctor for medical advice about side effects. You may report side effects to FDA at 1-821-VCF-4632. What other drugs will affect spironolactone? Using spironolactone with other drugs that make you dizzy can worsen this effect. Ask your doctor before using opioid medication, a sleeping pill, a muscle relaxer, or medicine for anxiety, depression, or seizures. Tell your doctor about all your other medicines, especially: colchicine; digoxin; lithium; loperamide; trimethoprim; heart or blood pressure medicine (especially another diuretic); medicine to prevent a blood clot; or NSAIDs (nonsteroidal anti-inflammatory drugs)--aspirin, ibuprofen (Advil, Motrin), naproxen (Aleve), celecoxib, diclofenac, indomethacin, meloxicam, and others. This list is not complete. Other drugs may affect spironolactone, including prescription and wcmb-kbc-zlvqbia medicines, vitamins, and herbal products. Not all possible drug interactions are listed here. Where can I get more information? Your pharmacist can provide more information about spironolactone. Remember, keep this and all other medicines out of the reach of children, never share your medicines with others, and use this medication only for the indication prescribed. Every effort has been made to ensure that the information provided by [employer]') is accurate, up-to-date, and complete, but no guarantee is made to that effect. Drug information contained herein may be time sensitive. [employer] information has been compiled for use by healthcare practitioners and consumers in the [place] and therefore [employer] does not warrant that uses outside of the [place] are appropriate, unless specifically indicated otherwise. [employer] drug information does not endorse drugs, diagnose patients or recommend therapy. [employer] drug information isan informational resource designed to assist licensed healthcare practitioners in caring for their p atients and/or to serve consumers viewing this service as a supplement to, and not a substitute for, the expertise, skill, knowledge and judgment of healthcare practitioners. The absence of a warningfor a given drug or drug combination in no way should be construed to indicate that the drug or drug combination is safe, effective or appropriate for any given patient. [employer] does not assume any responsibility for any aspect of healthcare administered with the aid of information [employer] provides. The information contained herein is not intended to cover all possible uses, directions, precautions, warnings, drug interactions, allergic reactions, or adverse effects. If you have questions about the drugs you are taking, check with your doctor, nurse or pharmacist. Copyright 5707-2470 [employer] Version: .. Revision Date: 04/22/2019. sacubitril and valsartan (sak UE bi tril and spenser RAMIN burton) Entresto What is the most important information I should know about sacubitril and valsartan? Do not use if you are , and tell your doctor right away if you become . If you have diabetes, do not use sacubitril and valsartan together with any medication that contains aliskiren (a blood pressure medicine). What is sacubitril and valsartan? Sacubitril and valsartan are blood pressure medicines. Valsartan is an angiotensin II receptor cornelius (sometimes called an ARB). Sacubitril and valsartan is a combination medicine that is used in adults with chronic heart failure. This medicine helps lower the risk of needing to be hospitalized when symptoms get worse, and helps lower the risk of from heart failure. Sacubitril and valsartan is also used to treat heart failure in children who are at least 1 year old. Sacubitril and valsartan is usually given together with other heart medications. Sacubitril and valsartan may also be used for purposes not listed in this medication guide. What should I discuss with my healthcare provider before taking sacubitril and valsartan? You should not use this medicine if you are allergic to sacubitril or valsartan ([place]), or if youhave ever had a severe allergic reaction to a blood pressure medication such as: an VICKY inhibitor--benazepril, captopril, enalapril, fosinopril, lisinopril, moexipril, perindopril,quinapril, ramipril, trandolapril (Lotensin, Vasotec, Prinivil, Accupril, Mavik, and others); or an ARB--azilsartan, candesartan, eprosartan, irbesartan, losartan, olmesartan, telmisartan, valsartan (Atacand, Avapro, Benicar, Diovan, Edarbi, Micardis, Teveten, and others). You should not take sacubitril and valsartan within 36 hours before or after you have taken any ACEinhibitor medication. If you have diabetes, do not use sacubitril and valsartan together with any medication that contains aliskiren (a blood pressure medicine). You may also need to avoid taking sacubitril and valsartan with aliskiren if you have kidney disease. Tell your doctor if you have ever had: liver disease; hereditary angioedema; or if you are on a xuf-pzhz-tehr. Do not use if you are , and tell your doctor right away if you become . Sacubitril and valsartan can cause injury or to the unborn baby if you take the medicine during your second or third trimester. You should not breastfeed while using this medicine. How should I take sacubitril and valsartan? Follow all directions on your prescription label and read all medication guides or instruction sheets. Your doctor may occasionally change your dose. Use the medicine exactly as directed. You may take this medicine with or without food. Sacubitril and valsartan doses are based on weight in children. Your child's dose needs may change if the child gains or loses weight. If you cannot swallow a tablet whole, a pharmacist can make an oral suspension (liquid). Tell the doctor if the person taking this medicine has trouble swallowing the tablet. Shake the oral suspension (liquid) before you measure a dose. Use the dosing syringe provided, or use a medicine dose-measuring device (not a kitchen spoon). Your blood pressure will need to be checked often. Your kidney function may also need to be checked. Store at room temperature away from moisture and heat. Throw away any oral suspension not used within 15 days after it was mixed. Do not keep the oral suspension in a refrigerator. What happens if I miss a dose? Take the medicine as soon as you can, but skip the missed dose if it is almost time for your next dose. Do not take two doses at one time. What happens if I overdose? Seek emergency medical attention or call the Poison Help line at . What should I avoid while taking sacubitril and valsartan? Do not use potassium supplements or salt substitutes, unless your doctor has told you to. Avoid getting up too fast from a sitting or lying position, or you may feel dizzy. What are the possible side effects of sacubitril and valsartan? Get emergency medical help if you have signs of an allergic reaction: hives; difficulty breathing; swelling of your face, lips, tongue, or throat. You may be more likely to have an allergic reaction if you are -[place]. Also call your doctor at once if you have: a light-headed feeling, like you might pass out; extreme tiredness; high potassium--slow heart rate, weak pulse, muscle weakness, tingly feeling; or kidney problems--little or no urination, rapid weight gain, painful or difficult urination, swelling in your hands, feet, or ankles. Common side effects may include: kidney problems; high potassium; dizziness, feeling light-headed; or cough. This is not a complete list of side effects and others may occur. Call your doctor for medical advice about side effects. You may report side effects to FDA at 3-673-BER-2067. What other drugs will affect sacubitril and valsartan? Tell your doctor about all your other medicines, especially: aliskiren; lithium; any other heart or blood pressure medicines; a diuretic or 'water pill'; medicine or mineral supplements that contain potassium; or NSAIDs (nonsteroidal anti-inflammatory drugs)--aspirin, ibuprofen (Advil, Motrin), naproxen (Aleve), celecoxib, diclofenac, indomethacin, meloxicam, and others. This list is not complete. Other drugs may affect sacubitril and valsartan, including prescription and ddom-xwv-pqqsotp medicines, vitamins, and herbal products. Not all possible drug interactions are listed here. Where can I get more information? Your pharmacist can provide more information about sacubitril and valsartan. Remember, keep this and all other medicines out of the reach of children, never share your medicines with others, and use this medication only for the indication prescribed. Every effort has been made to ensure that the information provided by [employer] ('[employer]') is accurate, up-to-date, and complete, but no guarantee is made to that effect. Drug information contained herein may be time sensitive. [employer] information has been compiled for use by healthcare practitioners and consumers in the [place] and therefore [employer] does not warrant that uses outside of the [place] are appropriate, unless specifically indicated otherwise. [employer] drug information does not endorse drugs, diagnose patients or recommend therapy. [employer] drug information isan informational resource designed to assist licensed healthcare practitioners in caring for their p atients and/or to serve consumers viewing this service as a supplement to, and not a substitute for, the expertise, skill, knowledge and judgment of healthcare practitioners. The absence of a warningfor a given drug or drug combination in no way should be construed to indicate that the drug or drug combination is safe, effective or appropriate for any given patient. [employer] does not assume any responsibility for any aspect of healthcare administered with the aid of information [employer] provides. The information contained herein is not intended to cover all possible uses, directions, precautions, warnings, drug interactions, allergic reactions, or adverse effects. If you have questions about the drugs you are taking, check with your doctor, nurse or pharmacist. Copyright 4683-5299 [employer] Version: 5.01. Revision Date: 05/20/2020. clopidogrel (kloe PID oh grel) Plavix What is the most important information I should know about clopidogrel? You should not use this medicine if you have any active bleeding such as a stomach ulcer or bleeding in the brain. Clopidogrel increases your risk of bleeding, which can be severe or life- threatening. Call your doctor or seek emergency medical attention if you have bleeding that will not stop, if you have blood in your urine, black or bloody stools, or if you cough up blood or vomit that looks like coffee grounds. Do not stop taking clopidogrel without first talking to your doctor, even if you have signs of bleeding. Stopping clopidogrel may increase your risk of a heart attack or stroke. What is clopidogrel? Clopidogrel is used to lower your risk of having a stroke, blood clot, or serious heart problem after you've had a heart attack, severe chest pain (angina), or circulation problems. Clopidogrel may also be used for purposes not listed in this medication guide. What should I discuss with my healthcare provider before taking clopidogrel? You should not use clopidogrel if you are allergic to it, or if you have: any active bleeding; or a stomach ulcer or bleeding in the brain (such as from a head injury). Tell your doctor if you have ever had: an ulcer in your stomach or intestines; or a bleeding disorder or blood clotting disorder. Clopidogrel may not work as well if you have certain genetic factors that affect the breakdown of this medicine in your body. Your doctor may perform a blood test to make sure clopidogrel is right for you. This medicine is not expected to harm an unborn baby. However, taking clopidogrel within 1 week before childbirth can cause bleeding in the mother. Tell your doctor if you are or plan to become . You should not breastfeed while using this medicine. How should I take clopidogrel? Follow all directions on your prescription label and read all medication guides or instruction sheets. Use these medicines exactly as directed. Clopidogrel can be taken with or without food. Clopidogrel is sometimes taken together with aspirin. Take aspirin only if your doctor tells you to. Clopidogrel keeps your blood from coagulating (clotting) and can make it easier for you to bleed, even from a minor injury. Contact your doctor or seek emergency medical attention if you have any bleeding that will not stop. You may need to stop using clopidogrel for a short time before a surgery, medical procedure, or dental work. Any healthcare provider who treats you should know that you are taking clopidogrel. Do not stop taking clopidogrel without first talking to your doctor, even if you have signs of bleeding. Stopping the medicine could increase your risk of a heart attack or stroke. Store at room temperature away from moisture and heat. What happens if I miss a dose? Take the medicine as soon as you can, but skip the missed dose if it is almost time for your next dose. Do not take two doses at one time. What happens if I overdose? Seek emergency medical attention or call the Poison Help line at . Overdose can causeexcessive bleeding. What should I avoid while taking clopidogrel? Avoid alcohol. It can increase your risk of stomach bleeding. Avoid activities that may increase your risk of bleeding or injury. Use extra care to prevent bleeding while shaving or brushing your teeth. If you also take aspirin: Ask a doctor or pharmacist before using medicines for pain, fever, swelling, or cold/flu symptoms. They may contain ingredients similar to aspirin (such as salicylates, ibuprofen, ketoprofen, or naproxen). Taking these products together can increase your risk of bleeding. What are the possible side effects of clopidogrel? Get emergency medical help if you have signs of an allergic reaction: hives; difficult breathing; swelling of your face, lips, tongue, or throat. Clopidogrel increases your risk of bleeding, which can be severe or life- threatening. Call your doctor or seek emergency medical attention if you have bleeding that will not stop, if you have blood in your urine, black or bloody stools, or if you cough up blood or vomit that looks like coffee grounds. Also call your doctor at once if you have: nosebleeds, pale skin, easy bruising, purple spots under your skin or in your mouth; jaundice (yellowing of your skin or eyes); fast heartbeats, shortness of breath; headache, fever, weakness, feeling tired; little or no urination; a seizure; low blood sugar--headache, hunger, sweating, irritability, dizziness, fast heart rate, and feeling anxious or shaky; or signs of a blood clot--sudden numbness or weakness, confusion, problems with vision or speech. Common side effects may include: bleeding. This is not a complete list of side effects and others may occur. Call your doctor for medical advice about side effects. You may report side effects to FDA at 7-981-CWX-4624. What other drugs will affect clopidogrel? Sometimes it is not safe to use certain medications at the same time. Some drugs can affect your blood levels of other drugs you take, which may increase side effects or make the medications less effective. Tell your doctor about all your other medicines, especially: a stomach acid bass fisher such as omeprazole, Nexium, or Prilosec; an antidepressant such as citalopram, fluoxetine, sertraline, Cymbalta, Effexor, Lexapro, Pristiq, or Prozac; rifampin; a blood thinner--warfarin, Coumadin, Jantoven; or NSAIDs (nonsteroidal anti-inflammatory drugs)--aspirin, ibuprofen (Advil, Motrin), naproxen (Aleve), celecoxib, diclofenac, indomethacin, meloxicam, and others. This list is not complete. Other drugs may affect clopidogrel, including prescription and ezbp-dsz-nnothzl medicines, vitamins, and herbal products. Not all possible drug interactions are listed here. Where can I get more information? Your pharmacist can provide more information about clopidogrel. Remember, keep this and all other medicines out of the reach of children, never share your medicines with others, and use this medication only for the indication prescribed. Every effort has been made to ensure that the information provided by [employer]') is accurate, up-to-date, and complete, but no guarantee is made to that effect. Drug information contained herein may be time sensitive. [employer] information has been compiled for use by healthcare practitioners and consumers in the [place] and therefore [employer] does not warrant that uses outside of the [place] are appropriate, unless specifically indicated otherwise. [employer] drug information does not endorse drugs, diagnose patients or recommend therapy. [employer] drug information isan informational resource designed to assist licensed healthcare practitioners in caring for their p atients and/or to serve consumers viewing this service as a supplement to, and not a substitute for, the expertise, skill, knowledge and judgment of healthcare practitioners. The absence of a warningfor a given drug or drug combination in no way should be construed to indicate that the drug or drug combination is safe, effective or appropriate for any given patient. [facility] does not assume any responsibility for any aspect of healthcare administered with the aid of information [facility] provides. The information contained herein is not intended to cover all possible uses, directions, precautions, warnings, drug interactions, allergic reactions, or adverse effects. If you have questions about the drugs you are taking, check with your doctor, nurse or pharmacist. Copyright 7289-7105 [employer]. Version: 18.01. Revision Date: 05/08/2020. apixaban (a PIX a ban) Renato What is the most important information I should know about apixaban? Apixaban increases your risk of severe or fatal bleeding, especially if you take certain medicines at the same time (including some csim-ogw-ebnlidw medicines). Tell your doctor about all medicines you have recently used. Call your doctor at once if you have signs of bleeding such as: easy bruising, unusual bleeding, unexpected pain or swelling, feeling very weak or dizzy, bleeding gums, nosebleeds, heavy menstrual bleeding, blood in your urine or stools, coughing up blood or vomit that looks like coffee grounds, orany bleeding that will not stop. Apixaban can cause a very serious blood clot around your spinal cord that can lead to long-term or permanent paralysis. This type of blood clot can occur during a spinal tap or spinal anesthesia (epidural), especially if you have a genetic spinal defect, if you use a spinal catheter, if you've had spinal surgery or repeated spinal taps, or if you use other drugs that can affect blood clotting. Get emergency medical help if you have symptoms of a spinal cord blood clot such as tingling, numbness, or muscle weakness especially in your legs and feet. Do not stop taking apixaban unless your doctor tells you to. Stopping suddenly can increase your risk of blood clot or stroke. What is apixaban? Apixaban is used to lower the risk of stroke caused by a blood clot in people with a heart rhythm disorder called atrial fibrillation. Apixaban is also used after hip or knee replacement surgery to prevent a type of blood clot called deep vein thrombosis (DVT), which can lead to blood clots in the lungs (pulmonary embolism). Apixaban is also used to treat DVT or pulmonary embolism (PE), and to lower your risk of having a repeat DVT or PE. Apixaban may also be used for purposes not listed in this medication guide. What should I discuss with my healthcare provider before taking apixaban? You should not take apixaban if you are allergic to it, or if you have active bleeding from a surgery, injury, or other cause. Apixaban may cause you to bleed more easily, especially if you have a bleeding disorder that is inherited or caused by disease. Tell your doctor if you have an artificial heart valve, or if you have ever had: bleeding problems; antiphospholipid syndrome, especially if you have a triple positive antibody test; or liver or kidney disease. Apixaban can cause a very serious blood clot around your spinal cord if you undergo a spinal tap orreceive spinal anesthesia (epidural). This type of blood clot could cause long-term paralysis, and may be more likely to occur if: you have a spinal catheter in place or if a catheter has been recently removed; you have a history of spinal surgery or repeated spinal taps; you have recently had a spinal tap or epidural anesthesia; you take aspirin or other NSAIDs (nonsteroidal anti-inflammatory drugs)--ibuprofen (Advil, Motrin),naproxen (Aleve), diclofenac, indomethacin, meloxicam, and others; or you are using other medicines to treat or prevent blood clots. Taking apixaban may increase the risk of bleeding while you are or during your delivery. Tell your doctor if you are or plan to become . Do not breastfeed. How should I take apixaban? Follow all directions on your prescription label and read all medication guides or instruction sheets. Your doctor may occasionally change your dose. Use the medicine exactly as directed. You may take apixaban with or without food. If you cannot swallow a tablet whole, crush it and mix with water, apple juice, or applesauce. Swallow the mixture right away without chewing. A crushed tablet mixture may also be given through a nasogastric (NG) feeding tube. Read and carefully follow any Instructions for Use provided with your medicine. Apixaban can make it easier for you to bleed, even from a minor injury. Seek medical attention if you have bleeding that will not stop. Tell your doctor if you have a planned surgery or dental work. You may need to stop taking apixabanfor a short time. Do not stop taking apixaban unless your doctor tells you to. If you stop taking apixaban for any reason, your doctor may prescribe another medicine to prevent blood clots. Store at room temperature away from moisture and heat. What happens if I miss a dose? Take the missed dose on the same day you remember it. Take your next dose at the regular time and stay on your twice-daily schedule. Do not take two doses at one time. Get your prescription refilled before you run out of medicine completely. What happens if I overdose? Seek emergency medical attention or call the Poison Help line at . What should I avoid while taking apixaban? Avoid activities that may increase your risk of bleeding or injury. Use extra care while shaving orbrushing your teeth. What are the possible side effects of apixaban? Get emergency medical help if you have signs of an allergic reaction: hives; chest pain, wheezing, difficult breathing; feeling light-headed; swelling of your face, lips, tongue, or throat. Also seek emergency medical attention if you have symptoms of a spinal blood clot such as tingling,numbness, or muscle weakness especially in your legs and feet. Call your doctor at once if you have: easy bruising, unusual bleeding (nose, mouth, vagina, or rectum), bleeding from wounds or needle injections, any bleeding that will not stop; heavy menstrual bleeding; headache, dizziness, weakness, feeling like you might pass out; urine that looks red, pink, or brown; or black or bloody stools, coughing up blood or vomit that looks like coffee grounds. This is not a complete list of side effects and others may occur. Call your doctor for medical advice about side effects. You may report side effects to FDA at 7-650-GVD-5236. What other drugs will affect apixaban? Sometimes it is not safe to use certain medications at the same time. Some drugs can affect your blood levels of other drugs you take, which may increase side effects or make the medications less effective. Many other drugs (including some iwoz-yrs-mqzrlyp medicines) can increase your risk of bleeding or blood clots. Tell your doctor about all medicines you have recently used, especially: any other medicines to treat or prevent blood clots; a blood thinner such as heparin or warfarin (Coumadin, Jantoven); an antidepressant; or aspirin or other NSAID (nonsteroidal anti-inflammatory drug) used senior living. This list is not complete and many other drugs may affect apixaban. This includes prescription and teyn-fye-blyjomv medicines, vitamins, and herbal products. Not all possible drug interactions are listed here. Where can I get more information? Your pharmacist can provide more information about apixaban. Remember, keep this and all other medicines out of the reach of children, never share your medicines with others, and use this medication only for the indication prescribed. Every effort has been made to ensure that the information provided by [employer]') is accurate, up-to-date, and complete, but no guarantee is made to that effect. Drug information contained herein may be time sensitive. [employer] information has been compiled for use by healthcare practitioners and consumers in the [place] and therefore [employer] does not warrant that uses outside of the [place] are appropriate, unless specifically indicated otherwise. [employer] drug information does not endorse drugs, diagnose patients or recommend therapy. [employer] drug information isan informational resource designed to assist licensed healthcare practitioners in caring for their p atients and/or to serve consumers viewing this service as a supplement to, and not a substitute for, the expertise, skill, knowledge and judgment of healthcare practitioners. The absence of a warningfor a given drug or drug combination in no way should be construed to indicate that the drug or drug combination is safe, effective or appropriate for any given patient. [employer] does not assume any responsibility for any aspect of healthcare administered with the aid of information [employer] provides. The information contained herein is not intended to cover all possible uses, directions, precautions, warnings, drug interactions, allergic reactions, or adverse effects. If you have questions about the drugs you are taking, check with your doctor, nurse or pharmacist. Copyright 8502-9784 [employer] Version: 6.01. Revision Date: 10/01/2020. [employer] Acute Respiratory Distress Syndrome, Adult Acute respiratory distress syndrome is a life-threatening condition in which fluid collects in the lungs. This prevents the lungs from filling with air and passing oxygen into the blood. This can cause the lungs and other vital organs to fail. The condition usually develops following an infection, illness, surgery, or injury. What are the causes? This condition may be caused by: An infection, such as sepsis or pneumonia. A serious injury to the head or chest. Severe bleeding from an injury. A major surgery. Breathing in harmful chemicals or smoke. Blood transfusions. A blood clot in the lungs. Breathing in vomit (aspiration). Near-drowning. Inflammation of the pancreas (pancreatitis). A drug overdose. What are the signs or symptoms? Sudden shortness of breath and rapid breathing are the main symptoms of this condition. Other symptoms may include: A fast or irregular heartbeat. Skin, lips, or fingernails that look blue (cyanosis). Confusion. Tiredness or loss of energy. Chest pain, particularly while taking a breath. Coughing. Restlessness or anxiety. Fever. This is usually present if there is an underlying infection, such as pneumonia. How is this diagnosed? This condition is diagnosed based on: Your symptoms. Medical history. A physical exam. During the exam, your health care provider will listen to your heart and check forcrackling or wheezing sounds in your lungs. You may also have other tests to confirm the diagnosis and measure how well your lungs are working.These may include: Measuring the amount of oxygen in your blood. Your health care provider will use two methods to do this procedure: ? A small device (pulse oximeter) that is placed on your finger, earlobe, or toe. ? An arterial blood gas test. A sample of blood is taken from an artery and tested for oxygen levels. Blood tests. Chest X-rays or CT scans to look for fluid in the lungs. Taking a sample of your sputum to test for infection. Heart test, such as an echocardiogram or electrocardiogram. This is done to rule out any heart problems (such as heart failure) that may be causing your symptoms. Bronchoscopy. During this test, a thin, flexible tube with a light is passed into the mouth or nose, down the windpipe, and into the lungs. How is this treated? Treatment depends on the cause of your condition. The goal is to support you while your lungs heal and the underlying cause is treated. Treatment may include: Oxygen therapy. This may be done through: ? A tube in your nose or a face mask. ? A ventilator. This device helps move air into and out of your lungs through a breathing tube that is inserted into your mouth or nose. Continuous positive airway pressure (CPAP). This treatment uses mild air pressure to keep the airways open. A mask or other device will be placed over your nose or mouth. Tracheostomy. During this procedure, a small cut is made in your neck to create an opening to your windpipe. A breathing tube is placed directly into your windpipe. The breathing tube is connected toa ventilator. This is done if you have problems with your airway or if you need a ventilator for a long period of time. Positioning you to lie on your stomach (prone position). Medicines, such as: ? Sedatives to help you relax. ? Blood pressure medicines. ? Antibiotics to treat infection. ? Blood thinners to prevent blood clots. ? Diuretics to help prevent excess fluid. Fluids and nutrients given through an IV tube. Wearing compression stockings on your legs to prevent blood clots. Extra corporeal membrane oxygenation (ECMO). This treatment takes blood outside your body, adds oxygen, and removes carbon dioxide. The blood is then returned to your body. This treatment is only used in severe cases. Follow these instructions at home: Take pxzl-ubf-udlpjvr and prescription medicines only as told by your health care provider. Do not use any products that contain nicotine or tobacco, such as cigarettes and e-cigarettes. If you need help quitting, ask your health care provider. Limit alcohol intake to no more than 1 drink per day for non women and 2 drinks per day forme (more content not included)... [id number] Discharge summary Date of Service 09/20/22 Discharge Diagnosis Heart failure, unspecified (I50.9 - ICD-10-CM) Hypo-osmolality and hyponatremia (E87.1 - ICD-10-CM) Hypertensive emergency (I16.1 - ICD-10-CM) Other nonspecific abnormal finding of lung field (R91.8 - ICD-10-CM) Hypotension, unspecified (I95.9 - ICD-10-CM) Type 2 diabetes mellitus without complications (E11.9 - ICD-10-CM) SOB - Shortness of breath ([id number] - PNED) Additional Orders: Ordered: Aldactone,Start: 09/20/22 8:26:00 EDT, Dose = 25 mg, = 1 tab(s), Oral, qDayM, 09/20/22 8:26:00 EDT Ordered: Discharge,09/20/22 12:06:00 EDT, Discharged to: Home Ordered: Discharge Activity,NO activity restrictions, 09/20/22 12:06:00 EDT Ordered: Discharge Diet,Type of Diet: Cardiac, Sodium limit: Low, No changes were made to your dietduring your hospital stay. Please resume your pre hospitalization diet on discharge., 09/20/22 12:06:00 EDT Ordered: Discharge Fluid Restriction,2,000 ml/day Ordered: Discharge Outpatient Labwork,BMP, Monitor kidney function, follow-up within: 3-5 days, Results Notify to: VANESSA KO MD, 09/20/22 12:06:00 EDT Ordered: Eliquis,Start: 09/20/22 11:51:00 EDT, Dose = 5 mg, = 1 tab(s), Oral, BID, Indication for Use Atrial fibrillation, NOW, 09/20/22 11:51:00 EDT Ordered: Eliquis 5 mg oral tablet,Dose : 5 mg = 1 tab(s), Oral, BID, # 60 tab(s), 3 Refill(s), Pharmacy: [facility]/pharmacy #[id number], 182.9, cm, 09/16/22 20:27:00 EDT, Height, 94.5, kg, 09/16/22 20:27:00 EDT, Dosing Weight Discontinued: Entresto 24 mg-26 mg oral tablet,Start: 09/19/22 12:33:00 EDT, Dose = 1 tab(s), Tab, Oral, BID, NOW, 09/19/22 12:33:00 EDT Discontinued: Entresto 24 mg-26 mg oral tablet,Dose = 1 tab(s), Oral, BID, # 60 tab(s), 1 Refill(s), Pharmacy: [facility]/pharmacy #[id number], 182.9, cm, 09/16/22 20:27:00 EDT, Height, kg, 09/16/22 20:27:00 EDT, Dosing Weight Ordered: Entresto 49 mg-51 mg oral tablet,Start: 09/20/22 21:00:00 EDT, Dose = 1 tab(s), Tab, Oral,BID, 09/20/22 21:00:00 EDT Ordered: Entresto 49 mg-51 mg oral tablet,Dose = 1 tab(s), Oral, BID, # 60 tab(s), 3 Refill(s), Pharmacy: [facility]/pharmacy #[id number], 182.9, cm, 09/16/22 20:27:00 EDT, Height, kg, 09/16/22 20:27:00 EDT, Dosing Weight Other status: Hepatic Function Panel,09/20/22 5:00:00 EDT, Next AM Draw (one day only), Blood, Once, Stop date 09/20/22 5:00:00 EDT(Complete) Ordered: Jardiance,Start: 09/20/22 9:00:00 EDT, Dose = 10 mg, = 1 tab(s), Oral, qAM, 09/20/22 8:26:00 EDT Ordered: Jardiance 10 mg oral tablet,Dose : 10 mg = 1 tab(s), Oral, qAM, # 30 tab(s), 1 Refill(s), Pharmacy: [facility]/pharmacy #[id number], 182.9, cm, 09/16/22 20:27:00 EDT, Height, kg, 09/16/22 20:27:00 EDT, Dosing Weight Discontinued: atorvastatin 80 mg oral tablet,Dose : 80 mg = 1 tab(s), Oral, qHS Ordered: atorvastatin 80 mg oral tablet,Dose : 80 mg = 1 tab(s), Oral, qHS, # 30 tab(s), 1 Refill(s), Pharmacy: [facility]/pharmacy #[id number], 182.9, cm, 09/16/22 20:27:00 EDT, Height, kg, 09/16/22 20:27:00 EDT, Dosing Weight Discontinued: carvedilol 12.5 mg oral tablet,Dose : 12.5 mg = 1 tab(s), Oral, BID Discontinued: clopidogrel 75 mg oral tablet,Dose : 75 mg = 1 tab(s), Oral, qDay Ordered: clopidogrel 75 mg oral tablet,Dose : 75 mg = 1 tab(s), Oral, qDay, # 30 tab(s), 1 Refill(s), Pharmacy: [facility]/pharmacy #[id number], 182.9, cm, 09/16/22 20:27:00 EDT, Height, kg, 09/16/22 20:27:00 EDT, Dosing Weight Discontinued: furosemide 40 mg oral tablet,Dose : 40 mg = 1 tab(s), Oral, BID Other status: hydrALAZINE,Start: 09/19/22 19:45:00 EDT, Dose = 10 mg, = 0.5 mL, IV Push, Once, Stop: 09/19/22 19:45:00 EDT, 09/19/22 19:43:00 EDT(Complete) Discontinued: lisinopril 20 mg oral tablet,Dose : 20 mg = 1 tab(s), Oral, qDay Discontinued: spironolactone 25 mg oral tablet,Dose : 25 mg = 1 tab(s), Oral, qDay Ordered: spironolactone 25 mg oral tablet,Dose : 25 mg = 1 tab(s), Oral, qDay, # 30 tab(s), 1 Refill(s), Pharmacy: [facility]/pharmacy #[id number], 182.9, cm, 09/16/22 20:27:00 EDT, Height, kg, 09/16/22 20:27:00EDT, Dosing Weight Hospital Course Shock, unknown cause, resolved Severe nonischemic cardiomyopathy EF 10 to 15% CAD, 70% ramus, 30% LAD Hypertensive emergency, resolved Flash pulmonary edema secondary to above, resolved Hypoxic hypercapnic respiratory failure status post mechanical ventilation, now extubated Diabetes Concern for LV apical thrombus Substance use disorder Leukocytosis, resolved SHERITA, resolved Patient initially presented as a transfer with concern for STEMI. STEMI was canceled as EKG not consistent with STEMI. Patient is to have blood pressure of 250 systolic with heart rates of 150. Troponin initially 90. Patient was started on nitro gtt. with mild improvement in blood pressure. Approximately 4 hours later, patient's blood pressure began to severely decreased around 60/40 mmHg necessitating levo. Patient also had an echocardiogram that demonstrated ejection fraction of 10% with a questionable LV thrombus. Patient was subsequently started on Levophed. He initially did not have any evidence of endorgan damage with normal lactate creatinine and LFTs. Due to hypotension and concern for cardiogenic shock, patient was emergently taken for left heart cath that demonstrated a normal cardiac index, normal pulmonary capillary wedge pressure and mild CAD with no culprit lesion. No intervention was performed. Patient was extubated on 09/17. He has been off Levophed for the past 12 hours, He has now again hypertensive. Patient with initial leukocytosis that has persisted although improved and now resolved. Unclear source of infection. Patient underwent HIDA scan which was abnormal. General surgery was consulted who recommended no surgical intervention recommended, ID cleared patient for discharge and prescribed him 7 days of ketoconazole on discharge, no acute infection was identified. Patient did have some evidence of SHERITA on admission which resolved and thus Entresto was restarted yesterday and uptitrated to medium dose today for better blood pressure control as well as Aldactone and Jardiance was started. Given history of cocaine abuse plan is to start beta- blockade withCoreg outpatient with advanced heart failure team per attending request. Given questionable LV thrombus on echo he was on heparin drip throughout his admission, patient did not want to be on warfarinand thus he is being discharged on off label Eliquis use. He will need evaluation of his EF after 3months of GDMT for ICD implantation. He is to continue his statin Plavix therapy for his CAD found on left heart cath. Patient educated extensively on importance fixation of recreational drugs. Patient is stable to be discharged home, instructed to follow-up with PCP, general cardiology, advanced heart failure team within 1 week. BMP outpatient in 3 to 5 days Allergies NKA Procedures L/RHC Consults Consult to Physician - Ordered -- 09/17/22 2:39:00 EDTSAURABH ASHISH MD, Routine, vent management Consult to Physician - Ordered -- 09/17/22 9:00:00 EDT, CINDA FERRO BA, MD, Routine, elevated white count Consult to Physician - Ordered -- 09/19/22 14:21:00 EDT, MARY RICH MD, Routine, abnormal HIDA scan Imaging Results and Diagnostics NM Hepatobiliary Duct System Imaging Result Date: September 19, 2022 Verified By: CARLIN RAMOS MD CLINICAL STATEMENT: IMPRESSION: Lack of gallbladder emptying after CCK administration could be seen withbiliary dyskinesia, chronic cholecystitis, cystic duct syndrome or sphincterof Oddi spasm. US Abdomen Complete Result Date: September 18, 2022 Verified By: SHELDON RAMOS MD CLINICAL STATEMENT: IMPRESSION: Dilated common bile duct without additional abnormalities seen of thegallbladder to suggest cholecystitis. Correlate with ALP levels to determinethe need for further evaluation such as HIDA scan or MRCP. Hepatomegaly. Small likely 6 mm cyst. Given slightly indeterminateappearance consider follow-up ultrasound in 6-12 months to demonstratestability. Simple left renal cyst measuring 1.4cm. XR Chest 1 View Result Date: September 17, 2022 Verified By: GORDON KOEHLER MD CLINICAL STATEMENT: IMPRESSION: Near complete resolution of right mid lung opacification. No acutecardiopulmonary process by radiograph at this time. I have personally reviewed the images of this examination and agree with theresident's findings and interpretation. XR Chest 1 View Result Date: September 16, 2022 Verified By: MARY CAZARES MD CLINICAL STATEMENT: IMPRESSION: Interval placement of a right internal jugular central venous catheter withtip at the level of the upper SVC. No significant change in aeration of the right lung. XR Enteric Tube Placement Result Date: September 16, 2022 Verified By: BASSAM ROSALES MD CLINICAL STATEMENT: IMPRESSION: Masslike density projecting the right parahilar region. CT thorax withcontrast advised to exclude neoplasm. 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 Follow to resolution. Small pleural effusions not excluded XR Chest 1 View Result Date: September 16, 2022 Verified By: BASSAM ROSALES MD CLINICAL STATEMENT: IMPRESSION: Masslike density projecting in the right parahilar region. CT thorax withcontrast advised to exclude neoplasm. Mixed interstitial and alveolar disease is most prevalent in the rightparahilar and right lower lung. Correlate for signs of atypical pneumonia.Follow to resolution Endotracheal tube as above Objective Vitals and Measurements T: 36.8 C (Oral) TMIN: 36.4 C (Oral) TMAX: 36.9 C (Oral) HR: 100(Monitored) RR: 20 BP: 188/94 SpO2:93% Weight Dosing Weight: 94.5 kg (09/16/22) Dosing Weight: 94.5 kg (09/16/22) Pending Labs and Studies BMP in 3-5 days. Code Status Code Status - Ordered -- 09/16/22 13:28:00 EDT, Full Code, Constant Order Admission Date 09/16/22 Discharge Date 09/20/22 Medications New Prescription apixaban (Eliquis 5 mg oral tablet)1 tab(s) by mouth two (2) times a day. Refills: 3. empagliflozin (Jardiance 10 mg oral tablet)1 tab(s) by mouth once a day (in the morning). Refills: 1. sacubitril-valsartan (Entresto 49 mg-51 mg oral tablet)1 tab(s) by mouth two (2) times a day. Refills: 3. Changed atorvastatin (atorvastatin 80 mg oral tablet)1 tab(s) by mouth daily at bedtime. Refills: 1. clopidogrel (clopidogrel 75 mg oral tablet)1 tab(s) by mouth once a day. Refills: 1. spironolactone (spironolactone 25 mg oral tablet)1 tab(s) by mouth once a day. Refills: 1. traZODone (traZODone 50 mg oral tablet)1 tab(s) by mouth daily at bedtime. Unchanged acetaminophen (acetaminophen 325 mg oral tablet)2 tab(s) by mouth every 4 hours as needed as neededfor pain. gabapentin (gabapentin 300 mg oral capsule)1 cap by mouth three (3) times a day. glipiZIDE (glipiZIDE 5 mg oral tablet)1 tab(s) by mouth twice daily with meals. metFORMIN (metFORMIN 500 mg oral tablet (IR))2 tab(s) by mouth two (2) times a day. PARoxetine (PARoxetine 30 mg oral tablet)1 tab(s) by mouth daily at bedtime. Discontinued carvedilol (carvedilol 12.5 mg oral tablet)1 tab(s) by mouth two (2) times a day. furosemide (furosemide 40 mg oral tablet)1 tab(s) by mouth two (2) times a day. lisinopril (lisinopril 20 mg oral tablet)1 tab(s) by mouth once a day. Follow Up Follow Up with Follow up with primary care provider When Within 1-2 days Follow Up with ERIN DYE MD When Within 5 to 7 days Why: Follow up with general cardiology within 1 week. Where: [address] [facility] [address] [facility] [place] [address]- [phone] Follow Up with VANESSA KO MD When Within 5 to 7 days Why: Follow up with advanced heart failure team within 1 week. Where: [address] [facility] [place] [address] [phone] Follow Up Appointments No qualifying data available. Follow Up Labs/Studies Discharge Labs Discharge Outpatient Labwork - Ordered -- BMP, Monitor kidney function, follow-up within: 3-5 days, Results Notify to: VANESSA KO MD, 09/20/22 12:06:00 EDT Discharge Studies No Follow-up Studies Discharge Diet Discharge Diet - Ordered -- Type of Diet: Cardiac, Sodium limit: Low, No changes were made to your diet during your hospitalstay. Please resume your pre hospitalization diet on discharge., 09/20/22 12:06:00 EDT Discharge Fluid Restriction - Ordered -- 2,000 ml/day Discharge Activity Discharge Activity - Ordered -- NO activity restrictions, 09/20/22 12:06:00 EDT Condition on Discharge stable Readmission Risk/Palliative Score No qualifying data available. Discharge Disposition home Time Spent >30 min Digitally Signed by SHONDA REID MD on 09/20/2022 02:29 PM Digitally Signed by BARBRA CHRISTIANSEN MD [facility] [id number] Infectious disease Progress note Date of Service September 20, 2022 Chief Complaint Fatigue and shortness of breath resolved Subjective Feels better denies new complaints Objective Vitals and Measurements T: 36.8 C (Oral) TMIN: 36.4 C (Oral) TMAX: 36.9 C (Oral) HR: 85(Monitored) RR: 20 BP: 188/94 SpO2: 93% Comfortable in bed Intake and Output 7AM Yesterday to 7AM Today Intake and Output (Last 24 hours) Intake Oral Intake 300.00 Output Urine Voided 1575.00 Total Summary Total Intake 300.00 Total Output 1575.00 Fluid Balance -1275.00 Physical Exam Awake alert oriented Lungs are clear Heart is regular rhythm Abdomen soft with no tenderness Upper and lower extremities without acute deficits Right-sided IJ line with no erythema drainage Mild dermatitis and maculopapular rash on his upper back bilaterally but no active blisters, occasionally itching Weight Dosing Weight: 94.5 kg (09/16/22) Dosing Weight: 94.5 kg (09/16/22) Medications Medications (16) Active Scheduled: (13) apixaban 5 mg tablet 5 mg 1 tab(s), Oral, BID atorvastatin 80 mg tablet 80 mg 1 tab(s), Oral, qHS betamethasone dipropionate 0.05% Cream 1 smiley, Topical, BID clopidogrel 75 mg Tablet 75 mg 1 tab(s), Oral, qDay clotrimazole topical 1% Cream 1 smiley, Topical, qDay empagliflozin 10 mg tablet 10 mg 1 tab(s), Oral, qAM gabapentin 300 mg Capsule 300 mg 1 cap(s), Oral, TID insulin lispro 100 units/mL Soln (3 mL) Give 0-10 units/dose, Subcutaneous, achs pantoprazole 40 mg VIAL 40 mg, IV Push, qDayAC paroxetine 30 mg tablet 30 mg 1 tab(s), Oral, qHS sacubitril-valsartan 49-51mg oral tablet 1 tab(s), Oral, BID spironolactone 25 mg tablet 25 mg 1 tab(s), Oral, qDayM traZODONE 50 mg Tablet 50 mg 1 tab(s), Oral, qHS Continuous: (0) PRN: (3) acetaminophen 325 mg Tablet 650 mg 2 tab(s), Oral, q4h fentaNYL 50 mcg/mL (2mL) ampule 50 mcg 1 mL, IV Push, q1h midazolam 1 mg/mL (2mL) SDV 2 mg 2 mL, IV Push, q1h Lab Results 09/20 04:10 WBC: 7.1 Hgb: 12.2 L Hct: 36.6 L Platelet: 205 Neutrophil %: 74.0 Glucose Level: 237 H Sodium Level: 137 Potassium Level: 4.0 BUN: 12.0 Creatinine Lvl (s): 1.23 09/19 04:40 WBC: 7.9 Hgb: 12.4 L Hct: 37.0 L Platelet: 193 Neutrophil %: 73.6 Glucose Level: 134 H Sodium Level: 141 Potassium Level: 3.6 BUN: 13.0 Creatinine Lvl (s): 1.25 Imaging Results and Diagnostics NM Hepatobiliary Duct System Imaging Result Date: September 19, 2022 Verified By: CARLIN RAMOS MD CLINICAL STATEMENT: IMPRESSION: Lack of gallbladder emptying after CCK administration could be seen withbiliary dyskinesia, chronic cholecystitis, cystic duct syndrome or sphincterof Oddi spasm. US Abdomen Complete Result Date: September 18, 2022 Verified By: SHELDON RAMOS MD CLINICAL STATEMENT: IMPRESSION: Dilated common bile duct without additional abnormalities seen of thegallbladder to suggest cholecystitis. Correlate with ALP levels to determinethe need for further evaluation such as HIDA scan or MRCP. Hepatomegaly. Small likely 6 mm cyst. Given slightly indeterminateappearance consider follow-up ultrasound in 6-12 months to demonstratestability. Simple left renal cyst measuring 1.4cm. XR Chest 1 View Result Date: September 17, 2022 Verified By: GORDON KOEHLER MD CLINICAL STATEMENT: IMPRESSION: Near complete resolution of right mid lung opacification. No acutecardiopulmonary process by radiograph at this time. I have personally reviewed the images of this examination and agree with theresident's findings and interpretation. XR Chest 1 View Result Date: September 16, 2022 Verified By: MARY CAZARES MD CLINICAL STATEMENT: IMPRESSION: Interval placement of a right internal jugular central venous catheter withtip at the level of the upper SVC. No significant change in aeration of the right lung. XR Enteric Tube Placement Result Date: September 16, 2022 Verified By: BASSAM ROSALES MD CLINICAL STATEMENT: IMPRESSION: Masslike density projecting the right parahilar region. CT thorax withcontrast advised to exclude neoplasm. 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 Follow to resolution. Small pleural effusions not excluded XR Chest 1 View Result Date: September 16, 2022 Verified By: BASSAM ROSALES MD CLINICAL STATEMENT: IMPRESSION: Masslike density projecting in the right parahilar region. CT thorax withcontrast advised to exclude neoplasm. Mixed interstitial and alveolar disease is most prevalent in the rightparahilar and right lower lung. Correlate for signs of atypical pneumonia.Follow to resolution Endotracheal tube as above EKG EKG - Completed -- 09/18/22 20:36:00 EDT Assessment/Plan SOB - Shortness of breath Leukocytosis Questionable LV thrombus SHERITA Hypertensive emergency Hypoxic respiratory failure Systolic heart failure Skin rash, yeast dermatitis on the upper back This is a 57-year-old male who initially presented as a transfer with concern of STEMI. STEMI was canceled as EKG was not consistent with STEMI. In the emergency room, the patient was noted to be hypertensive and tachycardic. He then developed hypotension approximately 4 hours after presentation. Ec hocardiogram with questionable LV thrombus. The patient was then started on Levophed. CBC in the emergency room was elevated at 27,000. Lactic acid was within normal limits.Due to hypotension and concern for cardiogenic shock, patient was emergently taken for left heart cath that demonstrated a normal cardiac index, normal pulmonary capillary wedge pressure and mild CAD with no culprit lesion. Nointervention was performed. ID consultation has been placed given the concern of leukocytosis. Patient remains intubated and sedated in CCU. He has remained afebrile the past 24 hours. White count has decreased to 14,500. Creatinine is trending up to 1.9. Nephrology on board. Lactic elevated yesterday at 2.9 now within normal limits. Panculture on Blood cultures show no growth to date Urine antigens are negative Tracheal aspirate shows no growth atypical work up is negative Acute hepatitis panel and HIV negative Respiratory PCR ID panel is negative including COVID 19. US of abdomen with findings suggestive for acute cholecystitis, HIDA scan was abnormal, general surgery consultation was placed and evaluated patient, no suspicion of acute gallbladder pathology given the lack of acute symptoms I saw the patient today, he has no shortness of breath, comfortable on room air, no cough or other symptoms other than new rash that was noted in his back, discussed with patient at length regarding potential etiologies that could include contact dermatitis or yeast dermatitis, for that we will apply topical antifungal and steroid creams and will plan on that for 1 week, a prescription is left inthe chart for 7 days of ketoconazole and hydrocortisone and the patient will follow with the CT clinic closely and will see his primary care physician within a week as recommended He has no acute respiratory or GI or symptoms of infection, will stop all antimicrobial therapy,I discussed with nursing staff to have triple-lumen cath from his right neck removed prior to discharge He will follow with me as needed, he was educated regarding potential findings of infection and will call as soon as possible if symptoms change Please see prescriptions in the chart as discussed with nursing staff We will follow as needed Call for questions anytime Orders: betamethasone topical, Start: 09/20/22 10:29:00 EDT, Dose = 1 smiley, Topical, BID, Apply to: back rash, Cream, 09/20/22 10:29:00 EDT clotrimazole topical, Start: 09/20/22 10:28:00 EDT, Dose = 1 smiley, Topical, qDay, Apply to: back dermatitis, Cream, 09/20/22 10:28:00 EDT Communication Order (continuous) Digitally Signed by CINDA FERRO BA, MD on 09/20/2022 12:03 PM [facility] [id number] Surgery Consult note Date of Service 09/20/2022 Reason for Consultation Abnormal HIDA scan Referring Physician Cardiology team History of Present Illness This is a split shared visit between myself and Dr. Rich This is a 57-year-old male with past medical history of diabetes mellitus, hypertension and drug abuse. Patient was admitted on 09/16/2022 with worsening shortness of breath. Initially he was thought to have a STEMI which was ruled out. He had a low ejection fraction noted on a recent echocardiogram around 10%. He was taken urgently to [facility] for a heart cath showing a normal cardiac index. During his work-up patient had a abnormal HIDA scan and general surgery was consulted for surgical recommendations. On evaluation this morning patient was resting comfortably in bed. He denies any abdominal pain or tenderness. Denies any previous postprandial pain nausea or indigestion. He denies any history of gallbladder disease. He is feeling much better and having no further shortness of breath or chest pain. Review of Systems All pertinent positives and negatives are stated in the HPI above. All other review of systems are considered negative unless stated otherwise. Physical Exam Vitals and Measurements T: 36.9 C (Oral) TMIN: 36.4 C (Oral) TMAX: 36.9 C (Oral) HR: 95(Monitored) RR: 20 BP: 150/82 SpO2: 94% Weight Dosing Weight: 94.5 kg (09/16/22) Dosing Weight: 94.5 kg (09/16/22) General -alert and oriented x4, answers questions appropriately. In no acute distress. HEENT -normocephalic. Cardiovascular -S1-S2, regular rate and rhythm. Respiratory -easy unlabored respirations. Chest rise symmetrical. Abdomen/GI -soft, nontender, bowel sounds present. Nondistended. Musculoskeletal -JENNINGS x4. Psychiatric -calm and cooperative. Skin -normal for ethnicity. Lab Results 09/20 04:10 WBC: 7.1 Hgb: 12.2 L Hct: 36.6 L Platelet: 205 Neutrophil %: 74.0 Glucose Level: 237 H Sodium Level: 137 Potassium Level: 4.0 BUN: 12.0 Creatinine Lvl (s): 1.23 09/19 04:40 WBC: 7.9 Hgb: 12.4 L Hct: 37.0 L Platelet: 193 Neutrophil %: 73.6 Glucose Level: 134 H Sodium Level: 141 Potassium Level: 3.6 BUN: 13.0 Creatinine Lvl (s): 1.25 Imaging Results and Diagnostics NM Hepatobiliary Duct System Imaging Result Date: September 19, 2022 Verified By: CARLIN RAMOS MD CLINICAL STATEMENT: IMPRESSION: Lack of gallbladder emptying after CCK administration could be seen withbiliary dyskinesia, chronic cholecystitis, cystic duct syndrome or sphincterof Oddi spasm. US Abdomen Complete Result Date: September 18, 2022 Verified By: SHELDON RAMOS MD CLINICAL STATEMENT: IMPRESSION: Dilated common bile duct without additional abnormalities seen of thegallbladder to suggest cholecystitis. Correlate with ALP levels to determinethe need for further evaluation such as HIDA scan or MRCP. Hepatomegaly. Small likely 6 mm cyst. Given slightly indeterminateappearance consider follow-up ultrasound in 6-12 months to demonstratestability. Simple left renal cyst measuring 1.4cm. XR Chest 1 View Result Date: September 17, 2022 Verified By: GORDON KOEHLER MD CLINICAL STATEMENT: IMPRESSION: Near complete resolution of right mid lung opacification. No acutecardiopulmonary process by radiograph at this time. I have personally reviewed the images of this examination and agree with theresident's findings and interpretation. XR Chest 1 View Result Date: September 16, 2022 Verified By: MARY CAZARES MD CLINICAL STATEMENT: IMPRESSION: Interval placement of a right internal jugular central venous catheter withtip at the level of the upper SVC. No significant change in aeration of the right lung. XR Enteric Tube Placement Result Date: September 16, 2022 Verified By: BASSAM ROSALES MD CLINICAL STATEMENT: IMPRESSION: Masslike density projecting the right parahilar region. CT thorax withcontrast advised to exclude neoplasm. 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 Follow to resolution. Small pleural effusions not excluded XR Chest 1 View Result Date: September 16, 2022 Verified By: LEW URBAN, BASSAM Fields CLINICAL STATEMENT: IMPRESSION: Masslike density projecting in the right parahilar region. CT thorax withcontrast advised to exclude neoplasm. Mixed interstitial and alveolar disease is most prevalent in the rightparahilar and right lower lung. Correlate for signs of atypical pneumonia.Follow to resolution Endotracheal tube as above Assessment/Plan SOB - Shortness of breath 57-year-old male who is hospital day #5 with shortness of breath initially thought to have a STEMI which has been ruled out. During his hospitalization patient had an ultrasound of his right upper quadrant to rule out gallbladder etiology which was essentially normal. He was found to have no evidence of any gallstones wallthickening or pericholecystic fluid. His total bilirubin and LFTs have essentially been normal since admission. A recent HIDA scan was completed showing no evidence of acute cholecystitis as his gallb ladder and small bowel are visualized in appropriate time with no gallbladder emptying indicating chronic disease. Patient has no evidence of acute cholecystitis. Most likely chronic disease given his lack of calculable ejection fraction. Recent ultrasound essentially normal. Abdominal exam is essentially benign. He is having no abdominal pain or tenderness. And denies any previous symptoms. Plan: -Do not believe gallbladder to be etiology of his admitting shortness of breath. -Does not appear to have any surgical needs at this time. -If he begins developing symptoms related to his gallbladder he can follow as an outpatient to discuss cholecystectomy. Will discuss case with Dr. Rich, see addendum to follow. Problem List/Past Medical History Ongoing No qualifying data Historical No qualifying data Procedure/Surgical History No qualifying data available. Medications Inpatient acetaminophen, 650 mg= 2 tab(s), Oral, q4h, PRN atorvastatin, 80 mg= 1 tab(s), Oral, qHS clopidogrel, 75 mg= 1 tab(s), Oral, qDay doxycycline Entresto 24 mg-26 mg oral tablet, 1 tab(s), Oral, BID fentaNYL, 50 mcg= 1 mL, IV Push, q1h, PRN gabapentin, 300 mg= 1 cap(s), Oral, TID Heparin for IV 25,000 unit(s) [10.5 unit(s)/kg/hr] + Dextrose 5% Premix Diluent 250 mL Heparin HBW CARDIAC Bolus 5000 units/mL, 4000 unit(s)= 0.8 mL, 60 unit(s)/kg, IV Push, q6h, PRN HumaLOG 100 units/mL subcutaneous solution, Give 0-10 units/dose, Subcutaneous, achs Hydrocortisone 1% cream, 1 smiley, Topical, BID meropenem pantoprazole IV Push, 40 mg, IV Push, qDayAC PARoxetine, 30 mg= 1 tab(s), Oral, qHS Pharmacy Consult, 1 EA, Miscellaneous, Daily traZODone, 50 mg= 1 tab(s), Oral, qHS vancomycin, 1000 mg= 200 mL, IV Piggyback, q12hr Versed, 2 mg= 2 mL, IV Push, q1h, PRN Home acetaminophen 325 mg oral tablet, 650 mg= 2 tab(s), Oral, q4h, PRN atorvastatin 80 mg oral tablet, 80 mg= 1 tab(s), Oral, qHS carvedilol 12.5 mg oral tablet, 12.5 mg= 1 tab(s), Oral, BID clopidogrel 75 mg oral tablet, 75 mg= 1 tab(s), Oral, qDay furosemide 40 mg oral tablet, 40 mg= 1 tab(s), Oral, BID gabapentin 300 mg oral capsule, 300 mg= 1 cap(s), Oral, TID glipiZIDE 5 mg oral tablet, 5 mg= 1 tab(s), Oral, BIDM lisinopril 20 mg oral tablet, 20 mg= 1 tab(s), Oral, qDay metFORMIN 500 mg oral tablet (IR), 1000 mg= 2 tab(s), Oral, BID PARoxetine 30 mg oral tablet, 30 mg= 1 tab(s), Oral, qHS spironolactone 25 mg oral tablet, 25 mg= 1 tab(s), Oral, qDay traZODone 50 mg oral tablet, 50 mg= 1 tab(s), Oral, qHS Allergies NKA Social History Smoking Status - 04/25/2015 Current every day smoker Family History Denies any familiar history Immunizations No qualifying data available. Digitally Signed by ANITA BLACK on 09/20/2022 07:57 AM [facility] [id number] Surgery Consult note Date of Service 09/20/2022 Reason for Consultation Abnormal HIDA scan Referring Physician Cardiology team History of Present Illness This is a split shared visit between myself and Dr. Rich This is a 57-year-old male with past medical history of diabetes mellitus, hypertension and drug abuse. Patient was admitted on 09/16/2022 with worsening shortness of breath. Initially he was thought to have a STEMI which was ruled out. He had a low ejection fraction noted on a recent echocardiogram around 10%. He was taken urgently to [facility] for a heart cath showing a normal cardiac index. During his work-up patient had a abnormal HIDA scan and general surgery was consulted for surgical recommendations. On evaluation this morning patient was resting comfortably in bed. He denies any abdominal pain or tenderness. Denies any previous postprandial pain nausea or indigestion. He denies any history of gallbladder disease. He is feeling much better and having no further shortness of breath or chest pain. Review of Systems All pertinent positives and negatives are stated in the HPI above. All other review of systems are considered negative unless stated otherwise. Physical Exam Vitals and Measurements T: 36.9 C (Oral) TMIN: 36.4 C (Oral) TMAX: 36.9 C (Oral) HR: 95(Monitored) RR: 20 BP: 150/82 SpO2: 94% Weight Dosing Weight: 94.5 kg (09/16/22) Dosing Weight: 94.5 kg (09/16/22) General -alert and oriented x4, answers questions appropriately. In no acute distress. HEENT -normocephalic. Cardiovascular -S1-S2, regular rate and rhythm. Respiratory -easy unlabored respirations. Chest rise symmetrical. Abdomen/GI -soft, nontender, bowel sounds present. Nondistended. Musculoskeletal -JENNINGS x4. Psychiatric -calm and cooperative. Skin -normal for ethnicity. Lab Results 09/20 04:10 WBC: 7.1 Hgb: 12.2 L Hct: 36.6 L Platelet: 205 Neutrophil %: 74.0 Glucose Level: 237 H Sodium Level: 137 Potassium Level: 4.0 BUN: 12.0 Creatinine Lvl (s): 1.23 09/19 04:40 WBC: 7.9 Hgb: 12.4 L Hct: 37.0 L Platelet: 193 Neutrophil %: 73.6 Glucose Level: 134 H Sodium Level: 141 Potassium Level: 3.6 BUN: 13.0 Creatinine Lvl (s): 1.25 Imaging Results and Diagnostics NM Hepatobiliary Duct System Imaging Result Date: September 19, 2022 Verified By: CARLIN RAMOS MD CLINICAL STATEMENT: IMPRESSION: Lack of gallbladder emptying after CCK administration could be seen withbiliary dyskinesia, chronic cholecystitis, cystic duct syndrome or sphincterof Oddi spasm. US Abdomen Complete Result Date: September 18, 2022 Verified By: SHELDON RAMOS MD CLINICAL STATEMENT: IMPRESSION: Dilated common bile duct without additional abnormalities seen of thegallbladder to suggest cholecystitis. Correlate with ALP levels to determinethe need for further evaluation such as HIDA scan or MRCP. Hepatomegaly. Small likely 6 mm cyst. Given slightly indeterminateappearance consider follow-up ultrasound in 6-12 months to demonstratestability. Simple left renal cyst measuring 1.4cm. XR Chest 1 View Result Date: September 17, 2022 Verified By: GORDON KOEHLER MD CLINICAL STATEMENT: IMPRESSION: Near complete resolution of right mid lung opacification. No acutecardiopulmonary process by radiograph at this time. I have personally reviewed the images of this examination and agree with theresident's findings and interpretation. XR Chest 1 View Result Date: September 16, 2022 Verified By: MARY CAZARES MD CLINICAL STATEMENT: IMPRESSION: Interval placement of a right internal jugular central venous catheter withtip at the level of the upper SVC. No significant change in aeration of the right lung. XR Enteric Tube Placement Result Date: September 16, 2022 Verified By: BASSAM ROSALES MD CLINICAL STATEMENT: IMPRESSION: Masslike density projecting the right parahilar region. CT thorax withcontrast advised to exclude neoplasm. 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 Follow to resolution. Small pleural effusions not excluded XR Chest 1 View Result Date: September 16, 2022 Verified By: BASSAM ROSALES MD CLINICAL STATEMENT: IMPRESSION: Masslike density projecting in the right parahilar region. CT thorax withcontrast advised to exclude neoplasm. Mixed interstitial and alveolar disease is most prevalent in the rightparahilar and right lower lung. Correlate for signs of atypical pneumonia.Follow to resolution Endotracheal tube as above Assessment/Plan SOB - Shortness of breath 57-year-old male who is hospital day #5 with shortness of breath initially thought to have a STEMI which has been ruled out. During his hospitalization patient had an ultrasound of his right upper quadrant to rule out gallbladder etiology which was essentially normal. He was found to have no evidence of any gallstones wallthickening or pericholecystic fluid. His total bilirubin and LFTs have essentially been normal since admission. A recent HIDA scan was completed showing no evidence of acute cholecystitis as his gallb ladder and small bowel are visualized in appropriate time with no gallbladder emptying indicating chronic disease. Patient has no evidence of acute cholecystitis. Most likely chronic disease given his lack of calculable ejection fraction. Recent ultrasound essentially normal. Abdominal exam is essentially benign. He is having no abdominal pain or tenderness. And denies any previous symptoms. Plan: -Do not believe gallbladder to be etiology of his admitting shortness of breath. -Does not appear to have any surgical needs at this time. -If he begins developing symptoms related to his gallbladder he can follow as an outpatient to discuss cholecystectomy. Will discuss case with Dr. Rich, see addendum to follow. Problem List/Past Medical History Ongoing No qualifying data Historical No qualifying data Procedure/Surgical History No qualifying data available. Medications Inpatient acetaminophen, 650 mg= 2 tab(s), Oral, q4h, PRN atorvastatin, 80 mg= 1 tab(s), Oral, qHS clopidogrel, 75 mg= 1 tab(s), Oral, qDay doxycycline Entresto 24 mg-26 mg oral tablet, 1 tab(s), Oral, BID fentaNYL, 50 mcg= 1 mL, IV Push, q1h, PRN gabapentin, 300 mg= 1 cap(s), Oral, TID Heparin for IV 25,000 unit(s) [10.5 unit(s)/kg/hr] + Dextrose 5% Premix Diluent 250 mL Heparin HBW CARDIAC Bolus 5000 units/mL, 4000 unit(s)= 0.8 mL, 60 unit(s)/kg, IV Push, q6h, PRN HumaLOG 100 units/mL subcutaneous solution, Give 0-10 units/dose, Subcutaneous, achs Hydrocortisone 1% cream, 1 smiley, Topical, BID meropenem pantoprazole IV Push, 40 mg, IV Push, qDayAC PARoxetine, 30 mg= 1 tab(s), Oral, qHS Pharmacy Consult, 1 EA, Miscellaneous, Daily traZODone, 50 mg= 1 tab(s), Oral, qHS vancomycin, 1000 mg= 200 mL, IV Piggyback, q12hr Versed, 2 mg= 2 mL, IV Push, q1h, PRN Home acetaminophen 325 mg oral tablet, 650 mg= 2 tab(s), Oral, q4h, PRN atorvastatin 80 mg oral tablet, 80 mg= 1 tab(s), Oral, qHS carvedilol 12.5 mg oral tablet, 12.5 mg= 1 tab(s), Oral, BID clopidogrel 75 mg oral tablet, 75 mg= 1 tab(s), Oral, qDay furosemide 40 mg oral tablet, 40 mg= 1 tab(s), Oral, BID gabapentin 300 mg oral capsule, 300 mg= 1 cap(s), Oral, TID glipiZIDE 5 mg oral tablet, 5 mg= 1 tab(s), Oral, BIDM lisinopril 20 mg oral tablet, 20 mg= 1 tab(s), Oral, qDay metFORMIN 500 mg oral tablet (IR), 1000 mg= 2 tab(s), Oral, BID PARoxetine 30 mg oral tablet, 30 mg= 1 tab(s), Oral, qHS spironolactone 25 mg oral tablet, 25 mg= 1 tab(s), Oral, qDay traZODone 50 mg oral tablet, 50 mg= 1 tab(s), Oral, qHS Allergies NKA Social History Smoking Status - 04/25/2015 Current every day smoker Family History Denies any familiar history Immunizations No qualifying data available. Digitally Signed by ANITA BLACK on 09/20/2022 07:57 AM [id number] Cardiology Progress note Date of Service 09/19/2022 patient seen and examined at bedside. No acute overnight events. Subjective patient seen and examined at bedside. No acute overnight events. remains hypertensive this morning.Ultrasound abdomen and yesterday showed concerns for acute cholecystitis, he denies any abdominal pain LFTs are normal, HIDA scan ordered by ID and if positive will require general surgery evaluation. He is afebrile without any leukocytosis. Objective Vitals and Measurements T: 36.9 C (Oral) TMIN: 36.6 C (Oral) TMAX: 36.9 C (Oral) HR: 89(Monitored) RR: 16 BP: 172/84 BP: 164/70(Line) SpO2: 96% Intake and Output 7AM Yesterday to 7AM Today Intake and Output (Last 24 hours) Intake Administration Information 109.60 Oral Intake 300.00 Output Urine Voided 2625.00 Total Summary Total Intake 409.60 Total Output 2625.00 Fluid Balance -2215.40 Physical Exam GENERAL: Pt is comfortable in bed. PSYCH: Alert and oriented HEENT: Sclera clear, trachea midline NEURO: No focal neurologic deficits ENDO: Thyroid is non-palpable NECK: No JVD or Carotid Bruit CVS: S1 & S2 audible, Regular Rate and Rhythm, No Murmurs LUNG: Adequate air entry. GI: + BS, Abdomen is Soft EXTREMITIES: No LE edema SKIN: Warm & Dry, right IJ. Weight Dosing Weight: 94.5 kg (09/16/22) Dosing Weight: 94.5 kg (09/16/22) Medications Medications (20) Active Scheduled: (15) atorvastatin 80 mg tablet 80 mg 1 tab(s), Oral, qHS clopidogrel 75 mg Tablet 75 mg 1 tab(s), Oral, qDay doxycycline 100 mg 10 mL, IV Piggyback, q12h gabapentin 300 mg Capsule 300 mg 1 cap(s), Oral, TID insulin lispro 100 units/mL Soln (3 mL) Give 0-10 units/dose, Subcutaneous, achs magnesium sulfate 2 gram(s) 50 mL, IV Piggyback, Once meropenem 500 mg, IV Piggyback, q8h pantoprazole 40 mg VIAL 40 mg, IV Push, qDayAC paroxetine 30 mg tablet 30 mg 1 tab(s), Oral, qHS Pharmacy Consult 1 EA, Miscellaneous, Daily sacubitril-valsartan 24-26 mg oral tablet 1 tab(s), Oral, BID traZODONE 50 mg Tablet 50 mg 1 tab(s), Oral, qHS VANCOMYCIN -- pharmacy re-dosing by random level 1 EA, Miscellaneous, Daily vancomycin PMX 1,250 mg 250 mL, IV Piggyback, q12h vancomycin trough level 1 EA, Miscellaneous, q12hr Continuous: (1) heparin 25,000 unit(s) [10.5 unit(s)/kg/hr] + Dextrose 5% Premix Diluent 250 mL 250 mL, Intravenous, 9.92 mL/hr PRN: (4) acetaminophen 325 mg Tablet 650 mg 2 tab(s), Oral, q4h fentaNYL 50 mcg/mL (2mL) ampule 50 mcg 1 mL, IV Push, q1h heparin 5,000 units/mL (1 mL) vial 4,000 unit(s) 0.8 mL, IV Push, q6h midazolam 1 mg/mL (2mL) SDV 2 mg 2 mL, IV Push, q1h Lab Results 09/19 04:40 WBC: 7.9 Hgb: 12.4 L Hct: 37.0 L Platelet: 193 Neutrophil %: 73.6 Glucose Level: 134 H Sodium Level: 141 Potassium Level: 3.6 BUN: 13.0 Creatinine Lvl (s): 1.25 09/18 08:20 Glucose Level: 208 H Sodium Level: 137 Potassium Level: 3.3 L BUN: 18.0 Creatinine Lvl (s): 1.63 H 09/18 03:57 WBC: 9.7 Hgb: 11.9 L Hct: 35.6 L Platelet: 210 Neutrophil %: 72.4 BUN: 20.0 Creatinine Lvl (s): 1.73 H EKG Electrocardiogram (EKG) - InProcess -- 09/18/22 20:36:00 EDT Assessment/Plan Shock, unknown cause, resolved Severe nonischemic cardiomyopathy EF 10 to 15% CAD, 70% ramus, 30% LAD Hypertensive emergency, resolved Flash pulmonary edema secondary to above, resolved Hypoxic hypercapnic respiratory failure status post mechanical ventilation, now extubated Diabetes Concern for LV apical thrombus Substance use disorder Leukocytosis, resolved SHERITA, resolved Patient initially presented as a transfer with concern for STEMI. STEMI was canceled as EKG not consistent with STEMI. Patient is to have blood pressure of 250 systolic with heart rates of 150. Troponin initially 90. Patient was started on nitro gtt. with mild improvement in blood pressure. Approximately 4 hours later, patient's blood pressure began to severely decreased around 60/40 mmHg necessitating levo. Patient also had an echocardiogram that demonstrated ejection fraction of 10% with a questionable LV thrombus. Patient was subsequently started on Levophed. He initially did not have any evidence of endorgan damage with normal lactate creatinine and LFTs. Due to hypotension and concern for cardiogenic shock, patient was emergently taken for left heart cath that demonstrated a normal cardiac index, normal pulmonary capillary wedge pressure and mild CAD with no culprit lesion. No intervention was performed. Patient was extubated on 09/17. He has been off Levophed for the past 12 hours, He has now again hypertensive. Patient with initial leukocytosis that has persisted although improved and now resolved. Unclear source of infection. Plan Patient remains hypertensive, kidney function has normalized, we will initiate low-dose Entresto for afterload reduction and stop his hydralazine/Imdur. If kidney function and blood pressure tolerates will need further GDMT optimization with Jardiance and Aldactone. We will eventually have just start him on a beta- blockade with low-dose Coreg. He does have a history of regular cocaine use. Advanced heart failure team is on board, recommendations appreciated. He does have a questionable LV thrombus in which he is on heparin drip, will eventually require p.o. anticoagulant however will hold offuntil general surgery evaluation. Infectious diseases on board, he is afebrile and without leukocytosis. Ultrasound abdomen concerning for acute cholecystitis, LFTs are normal, no abdominal pain, ID has ordered HIDA which was abnormal and thus general surgery was consulted. Remains on broad-spectrum antibiotics. Remains euvolemic, no need for diuresis Will need evaluation for ICD after monitor days of GDMT Continue Plavix and statin therapy Patient educated extensively on importance of cessation of recreational drugs. Continue to monitor hemodynamics Note, patient adamant to leave today however after further discussion he is okay to stay. Digitally Signed by SHONDA REID MD on 09/19/2022 04:15 PM Digitally Signed by BARBRA CHRISTIANSEN MD [facility] [id number] Infectious disease Progress note Subjective Patient seen and examined labs and notes reviewed no new complaints Patient has remained afebrile the past 24 hours No leukocytosis Denies new complaints He wants to go home today Objective Vitals and Measurements T: 36.8 C (Oral) TMIN: 36.6 C (Oral) TMAX: 36.9 C (Oral) HR: 97(Monitored) RR: 18 BP: 148/72 BP: 164/70(Line) SpO2: 96% Intake and Output 7AM Yesterday to 7AM Today Intake and Output (Last 24 hours) Intake Administration Information 109.60 Oral Intake 300.00 Output Urine Voided 2050.00 Urinary Catheter Output: 850.00 Total Summary Total Intake 409.60 Total Output 2900.00 Fluid Balance -2490.40 Physical Exam Awake alert oriented, comfortable in bed Lungs are clear Heart is regular rhythm Abdomen soft with no significant tenderness Upper and lower extremities without acute changes Weight Dosing Weight: 94.5 kg (09/16/22) Dosing Weight: 94.5 kg (09/16/22) Medications Medications (20) Active Scheduled: (15) atorvastatin 80 mg tablet 80 mg 1 tab(s), Oral, qHS clopidogrel 75 mg Tablet 75 mg 1 tab(s), Oral, qDay doxycycline 100 mg 10 mL, IV Piggyback, q12h gabapentin 300 mg Capsule 300 mg 1 cap(s), Oral, TID hydralazine 10 mg Tablet 10 mg 1 tab(s), Oral, BID insulin lispro 100 units/mL Soln (3 mL) Give 0-10 units/dose, Subcutaneous, achs isosorbide mononitrate 60 mg ER tablet 60 mg 1 tab(s), Oral, qDayAC meropenem 500 mg, IV Piggyback, q8h pantoprazole 40 mg VIAL 40 mg, IV Push, qDayAC paroxetine 30 mg tablet 30 mg 1 tab(s), Oral, qHS Pharmacy Consult 1 EA, Miscellaneous, Daily traZODONE 50 mg Tablet 50 mg 1 tab(s), Oral, qHS VANCOMYCIN -- pharmacy re-dosing by random level 1 EA, Miscellaneous, Daily vancomycin PMX 1,250 mg 250 mL, IV Piggyback, q12h vancomycin trough level 1 EA, Miscellaneous, q12hr Continuous: (1) heparin 25,000 unit(s) [10.5 unit(s)/kg/hr] + Dextrose 5% Premix Diluent 250 mL 250 mL, Intravenous, 9.92 mL/hr PRN: (4) acetaminophen 325 mg Tablet 650 mg 2 tab(s), Oral, q4h fentaNYL 50 mcg/mL (2mL) ampule 50 mcg 1 mL, IV Push, q1h heparin 5,000 units/mL (1 mL) vial 4,000 unit(s) 0.8 mL, IV Push, q6h midazolam 1 mg/mL (2mL) SDV 2 mg 2 mL, IV Push, q1h Lab Results 09/19 04:40 WBC: 7.9 Hgb: 12.4 L Hct: 37.0 L Platelet: 193 Neutrophil %: 73.6 Glucose Level: 134 H Sodium Level: 141 Potassium Level: 3.6 BUN: 13.0 Creatinine Lvl (s): 1.25 09/18 08:20 Glucose Level: 208 H Sodium Level: 137 Potassium Level: 3.3 L BUN: 18.0 Creatinine Lvl (s): 1.63 H 09/18 03:57 WBC: 9.7 Hgb: 11.9 L Hct: 35.6 L Platelet: 210 Neutrophil %: 72.4 BUN: 20.0 Creatinine Lvl (s): 1.73 H Imaging Results and Diagnostics NM Hepatobiliary Duct System Imaging Result Date: September 19, 2022 Verified By: CARLIN RAMOS MD CLINICAL STATEMENT: IMPRESSION: Lack of gallbladder emptying after CCK administration could be seen withbiliary dyskinesia, chronic cholecystitis, cystic duct syndrome or sphincterof Oddi spasm. US Abdomen Complete Result Date: September 18, 2022 Verified By: SHELDON RAMOS MD CLINICAL STATEMENT: IMPRESSION: Dilated common bile duct without additional abnormalities seen of thegallbladder to suggest cholecystitis. Correlate with ALP levels to determinethe need for further evaluation such as HIDA scan or MRCP. Hepatomegaly. Small likely 6 mm cyst. Given slightly indeterminateappearance consider follow-up ultrasound in 6-12 months to demonstratestability. Simple left renal cyst measuring 1.4cm. XR Chest 1 View Result Date: September 17, 2022 Verified By: GORDON KOEHLER MD CLINICAL STATEMENT: IMPRESSION: Near complete resolution of right mid lung opacification. No acutecardiopulmonary process by radiograph at this time. I have personally reviewed the images of this examination and agree with theresident's findings and interpretation. XR Chest 1 View Result Date: September 16, 2022 Verified By: MARY CAZARES MD CLINICAL STATEMENT: IMPRESSION: Interval placement of a right internal jugular central venous catheter withtip at the level of the upper SVC. No significant change in aeration of the right lung. XR Enteric Tube Placement Result Date: September 16, 2022 Verified By: BASSAM ROSALES MD CLINICAL STATEMENT: IMPRESSION: Masslike density projecting the right parahilar region. CT thorax withcontrast advised to exclude neoplasm. 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 Follow to resolution. Small pleural effusions not excluded XR Chest 1 View Result Date: September 16, 2022 Verified By: BASSAM ROSALES MD CLINICAL STATEMENT: IMPRESSION: Masslike density projecting in the right parahilar region. CT thorax withcontrast advised to exclude neoplasm. Mixed interstitial and alveolar disease is most prevalent in the rightparahilar and right lower lung. Correlate for signs of atypical pneumonia.Follow to resolution Endotracheal tube as above EKG Electrocardiogram (EKG) - InProcess -- 09/18/22 20:36:00 EDT Assessment/Plan SOB - Shortness of breath Leukocytosis Questionable LV thrombus SHERITA Hypertensive emergency Hypoxic respiratory failure Systolic heart failure This is a 57-year-old male who initially presented as a transfer with concern of STEMI. STEMI was canceled as EKG was not consistent with STEMI. In the emergency room, the patient was noted to be hypertensive and tachycardic. He then developed hypotension approximately 4 hours after presentation. Echocardiogram with questionable LV thrombus. The patient was then started on Levophed. CBC in the emergency room was elevated at 27,000. Lactic acid was within normal limits.Due to hypotension and concern for cardiogenic shock, patient was emergently taken for left heart cath that demonstrated a normal cardiac index, normal pulmonary capillary wedge pressure and mild CAD with no culprit lesion. Nointervention was performed. ID consultation has been placed given the concern of leukocytosis. Patient remains intubated and sedated in CCU. He has remained afebrile the past 24 hours. White count has decreased to 14,500. Creatinine is trending up to 1.9. Nephrology on board. Lactic elevated yesterday at 2.9 now within normal limits. Doe cx 8/9/NGTD Blood cultures show no growth to date Urine antigens are negative Tracheal aspirate shows no growth atypical work up is negative Acute hepatitis panel and HIV negative Respiratory PCR ID panel is negative including COVID 19. US of abdomen with findings suggestive for acute cholecystitis Continue broad spectrum antimicrobial therapy LFTs within normal limits. HIDA scan is abnormal, discussed with staff to have the team consult GIfor evaluation and based on the recommendations will proceed with further plans, the patient has clinically much improved, discussed the case with him and nursing staff ID will follow I was present for Sylvia Simmons LPN , and personally directed, all components of the patient's complete evaluation and management documented by the scribe today. I have personally examined the patient and reviewed all diagnostic data. I have reviewed all of this documentation by the scribe. It documents the history obtained, examination performed, diagnostic testing results compiled by him/her,and discharge information. Digitally Signed by Sylvia Simmons Licensed Scribe on 09/19/2022 11:32 AM Digitally Signed by CINDA FERRO BA, MD on 09/19/2022 02:02 PM [facility] [id number] Note ORIGINAL EXAMINATION: HIDA09/19/2022 9:22 am TECHNIQUE: Approximately 9.8 millicuries Tc99m Mebrofenin was administered IV. Then, dynamic images of the abdomen were obtained in the anterior projection for 60 mins. Slow infusion of 1.8 mcg cholecystokinin was administered intravenously over 30 mins. Images were obtained in the anterior projection and regions of interest were drawn around the gallbladder and ejection fraction was calculated. COMPARISON: None HISTORY: Reason for Exam: infx FINDINGS: Prompt, homogenous uptake by the liver is noted with normal appearance of radiotracer excretion into the biliary system. Clearance of blood pool activity appears appropriate. Gallbladder and small bowel are visualized in appropriate time. No gallbladder emptying is seen after CCK administration. Normal value is >35% for CCK protocol. IMPRESSION: Lack of gallbladder emptying after CCK administration could be seen with biliary dyskinesia, chronic cholecystitis, cystic duct syndrome or sphincter of Oddi spasm. Interpreted by: Carlin Ramos MD Preliminary Report By: Carlin Ramos MD Electronically signed By Carlin Ramos MD Dictated Date: 09/19/2022 12:42:54 PM Prelim Date: 09/19/2022 12:44:31 PM Sign Date: 09/19/2022 12:44:31 PM Ordering Provider: CINDA CABALLEROOhioHealth Grant Medical [id number] Cardiology Progress note Subjective Doing well. Denies chest pain, lightness, shortness breath, palpitations. Objective Vitals and Measurements T: 36.7 C (Oral) TMIN: 36.6 C (Oral) TMAX: 37.1 C (Oral) HR: 85(Monitored) RR: 18 BP: 171/70 BP: 104/45(Line) SpO2: 96% Intake and Output 7AM Yesterday to 7AM Today Intake and Output (Last 24 hours) Intake Oral Intake 720.00 Administration Information 68.71 Output Urinary Catheter Output: 2500.00 Total Summary Total Intake 788.71 Total Output 2500.00 Fluid Balance -1711.29 Physical Exam GENERAL: Well nourished; no acute distress. PSYCHIATRIC: Alert and oriented x 3, cooperative, mood normal, affect normal. HEAD: Normocephalic, nontraumatic head. EYES: Pupils equal, round, and reactive to light; conjunctiva clear bilaterally. Lids within normallimits. NECK: Supple, no posterior midline tenderness. Normal range of motion. No thyromegaly noted. CARDIAC: Regular rate, regular rhythm, no murmurs noted. RESPIRATORY: Regular rate and depth; no distress, RIGHT lung clear, LEFT lung clear. Breath sounds normal. ABDOMEN: Soft, nontender. Normal bowel sounds. EXTREMITIES: No trace lower extremity pitting edema. No lymphedema. Dorsalis Pedis pulse +2/4 bilaterally. Posterior Tibialis pulse +2/4 bilaterally. NEURO: Moves all extremities DERM: Warm and dry. Normal turgor. No observed exanthem. No significant dandruff. Weight Dosing Weight: 94.5 kg (09/16/22) Dosing Weight: 94.5 kg (09/16/22) Medications Medications (21) Active Scheduled: (15) atorvastatin 80 mg tablet 80 mg 1 tab(s), Oral, qHS clopidogrel 75 mg Tablet 75 mg 1 tab(s), Oral, qDay doxycycline 100 mg 10 mL, IV Piggyback, q12h gabapentin 300 mg Capsule 300 mg 1 cap(s), Oral, TID hydralazine 50 mg Tablet 50 mg 1 tab(s), Oral, TID insulin lispro 100 units/mL Soln (3 mL) Give 0-10 units/dose, Subcutaneous, achs isosorbide mononitrate 60 mg ER tablet 60 mg 1 tab(s), Oral, qDayAC meropenem 500 mg, IV Piggyback, q8h pantoprazole 40 mg VIAL 40 mg, IV Push, qDayAC paroxetine 30 mg tablet 30 mg 1 tab(s), Oral, qHS Pharmacy Consult 1 EA, Miscellaneous, Daily potassium chloride 20 mEq ER tablet 40 mEq 2 tab(s), Oral, Once potassium chloride 20 mEq ER tablet 20 mEq 1 tab(s), Oral, Once traZODONE 50 mg Tablet 50 mg 1 tab(s), Oral, qHS VANCOMYCIN -- pharmacy re-dosing by random level 1 EA, Miscellaneous, Daily Continuous: (1) heparin 25,000 unit(s) [10.5 unit(s)/kg/hr] + Dextrose 5% Premix Diluent 250 mL 250 mL, Intravenous, 9.92 mL/hr PRN: (5) acetaminophen 325 mg Tablet 650 mg 2 tab(s), Oral, q4h fentaNYL 50 mcg/mL (2mL) ampule 50 mcg 1 mL, IV Push, q1h heparin 5,000 units/mL (1 mL) vial 4,000 unit(s) 0.8 mL, IV Push, q6h midazolam 1 mg/mL (2mL) SDV 2 mg 2 mL, IV Push, q1h sodium zirconium cyclosilicate 10 g REC packet 10 gram(s) 1 packet(s), Oral, q8hr Lab Results 09/18 08:20 Glucose Level: 208 H Sodium Level: 137 Potassium Level: 3.3 L BUN: 18.0 Creatinine Lvl (s): 1.63 H 09/18 03:57 WBC: 9.7 Hgb: 11.9 L Hct: 35.6 L Platelet: 210 Neutrophil %: 72.4 BUN: 20.0 Creatinine Lvl (s): 1.73 H 09/17 13:16 WBC: 14.8 H Hgb: 12.5 L Hct: 38.4 L Platelet: 271 Neutrophil %: 75.9 H Protime: 11.3 PT International Ratio: 1.0 09/17 04:47 WBC: 14.5 H Hgb: 12.7 L Hct: 38.3 L Platelet: 305 Neutrophil %: 79.0 H Glucose Level: 187 H Sodium Level: 139 Potassium Level: 3.7 BUN: 19.0 Creatinine Lvl (s): 1.92 H EKG No qualifying data available. Assessment/Plan Shock, unknown cause, resolved Severe nonischemic cardiomyopathy EF 10 to 15% Hypertensive emergency, resolved Flash pulmonary edema secondary to above, resolved Hypoxic hypercapnic respiratory failure status post mechanical ventilation, now extubated Diabetes Concern for LV apical thrombus Substance use disorder Leukocytosis, resolved SHERITA, stable Patient initially presented as a transfer with concern for STEMI. STEMI was canceled as EKG not consistent with STEMI. Patient is to have blood pressure of 250 systolic with heart rates of 150. Troponin initially 90. Patient was started on nitro gtt. with mild improvement in blood pressure. Approximately 4 hours later, patient's blood pressure began to severely decreased around 60/40 mmHg necessitating levo. Patient also had an echocardiogram that demonstrated ejection fraction of 10% with a questionable LV thrombus. Patient was subsequently started on Levophed. He initially did not have any evidence of endorgan damage with normal lactate creatinine and LFTs. Due to hypotension and concern for cardiogenic shock, patient was emergently taken for left heart cath that demonstrated a normal cardiac index, normal pulmonary capillary wedge pressure and mild CADwith no culprit lesion. No intervention was performed. Patient was extubated on 09/17 and currently doing well. His blood pressures have returned to normaland he is even hypertensive. He has been off Levophed for the past 12 hours. Patient with initial leukocytosis that has persisted although improved and now resolved. Unclear source of infection. Currently covering broadly. Infectious disease following.. Blood cultures negative. Did have a long and detailed discussion with patient. Patient does admit to regular cocaine use. This is the likely cause of patient's admission. Will defer antibiotic and infectious workup to ID. . For questionable LV thrombus, we will continue therapeutic heparin. Will likely switch to p.o. anticoagulation tomorrow. For heart failure, patient appears euvolemic. Starting hydralazine and Imdur. If creatinine improves, can start guideline directed medical therapy. Patient ambulating and hopefully able to discharge home in the next day or so. Patient educated extensively on importance of cessation of recreational drugs. He was educated on the high risk of dying if he does cocaine or other drugs given his severely reduced ejection fraction. Digitally Signed by MIGUELINA BROWN MD on 09/18/2022 12:17 PM [facility] [id number] NoteSINUS RHYTHM PROBABLE LEFT ATRIAL ENLARGEMENT LVH WITH SECONDARY REPOLARIZATION ABNORMALITY ANTERIOR ST ELEVATION, PROBABLY DUE TO LVH BORDERLINE PROLONGED QT INTERVAL Electronic Signature: MILLER VIEIRA MD 09/19/2022 20:46[facility] Progress note Date of Service 09/18/2022 Chief Complaint respiratory failure Subjective Patient was extubated yesterday. Respiratory status has remained stable. He is off pressor support. Objective Vitals and Measurements T: 36.6 C (Oral) TMIN: 36.6 C (Oral) TMAX: 37.1 C (Oral) HR: 80(Monitored) RR: 18 BP: 144/68 BP: 164/70(Line) SpO2: 97% Intake and Output 7AM Yesterday to 7AM Today Intake and Output (Last 24 hours) Intake Oral Intake 720.00 Administration Information 68.71 Output Urinary Catheter Output: 2500.00 Total Summary Total Intake 788.71 Total Output 2500.00 Fluid Balance -1711.29 Physical Exam General Appearance: in no acute distress. Alert. EENT: No thyroid disease. ocular movements intact Cardiac: RRR. S1 and S2. no murmurs or rubs. Lungs: Clear breath sounds. No wheeze or crackles noted. Abdomen: soft. non tender. bowel sounds audible Neurological: alert and oriented. Skin: warm. dry Weight Dosing Weight: 94.5 kg (09/16/22) Dosing Weight: 94.5 kg (09/16/22) Medications Medications (19) Active Scheduled: (13) atorvastatin 80 mg tablet 80 mg 1 tab(s), Oral, qHS clopidogrel 75 mg Tablet 75 mg 1 tab(s), Oral, qDay doxycycline 100 mg 10 mL, IV Piggyback, q12h gabapentin 300 mg Capsule 300 mg 1 cap(s), Oral, TID hydralazine 10 mg Tablet 10 mg 1 tab(s), Oral, BID insulin lispro 100 units/mL Soln (3 mL) Give 0-10 units/dose, Subcutaneous, achs isosorbide mononitrate 60 mg ER tablet 60 mg 1 tab(s), Oral, qDayAC meropenem 500 mg, IV Piggyback, q8h pantoprazole 40 mg VIAL 40 mg, IV Push, qDayAC paroxetine 30 mg tablet 30 mg 1 tab(s), Oral, qHS Pharmacy Consult 1 EA, Miscellaneous, Daily traZODONE 50 mg Tablet 50 mg 1 tab(s), Oral, qHS VANCOMYCIN -- pharmacy re-dosing by random level 1 EA, Miscellaneous, Daily Continuous: (1) heparin 25,000 unit(s) [10.5 unit(s)/kg/hr] + Dextrose 5% Premix Diluent 250 mL 250 mL, Intravenous, 9.92 mL/hr PRN: (5) acetaminophen 325 mg Tablet 650 mg 2 tab(s), Oral, q4h fentaNYL 50 mcg/mL (2mL) ampule 50 mcg 1 mL, IV Push, q1h heparin 5,000 units/mL (1 mL) vial 4,000 unit(s) 0.8 mL, IV Push, q6h midazolam 1 mg/mL (2mL) SDV 2 mg 2 mL, IV Push, q1h sodium zirconium cyclosilicate 10 g REC packet 10 gram(s) 1 packet(s), Oral, q8hr Lab Results 09/18 08:20 Glucose Level: 208 H Sodium Level: 137 Potassium Level: 3.3 L BUN: 18.0 Creatinine Lvl (s): 1.63 H 09/18 03:57 WBC: 9.7 Hgb: 11.9 L Hct: 35.6 L Platelet: 210 Neutrophil %: 72.4 BUN: 20.0 Creatinine Lvl (s): 1.73 H 09/17 13:16 WBC: 14.8 H Hgb: 12.5 L Hct: 38.4 L Platelet: 271 Neutrophil %: 75.9 H Protime: 11.3 PT International Ratio: 1.0 09/17 04:47 WBC: 14.5 H Hgb: 12.7 L Hct: 38.3 L Platelet: 305 Neutrophil %: 79.0 H Glucose Level: 187 H Sodium Level: 139 Potassium Level: 3.7 BUN: 19.0 Creatinine Lvl (s): 1.92 H EKG No qualifying data available. Assessment/Plan SOB - Shortness of breath Hypertensive emergency and flash pulmonary edema leading to respiratory failure 2/2 cocaine use Severe nonischemic cardiomyopathy EF 10 to 15% Diabetes Concern for LV apical thrombus Cocaine use CAD, 70% ramus, 30% LAD This 57-year-old male initially presented due to significant shortness of breath. He was intubated.Due to significant hypotension right and left heart catheterization showed mild CAD along with normal filling pressures and cardiac output. Patient was subsequently extubated and is now off pressors. Blood pressure is now stabilized. Euvolemic on exam. Bedside echocardiogram yesterday shows improved LVEF compared to echo on admission. Agree with continuing hydralazine/isosorbide mononitrate. Slowly add Aldactone Jardiance and Coreg. Continue statin and Plavix for prior CAD. Discussed cocaine cessation. We will follow-up patient in the advanced heart failure clinic after discharge. Digitally Signed by JOSE GEIGER MD on 09/18/2022 04:33 PM [facility] [id number] Cardiology Progress note Date of Service 09/18/2022 Chief Complaint respiratory failure Subjective Patient was extubated yesterday. Respiratory status has remained stable. He is off pressor support. Objective Vitals and Measurements T: 36.6 C (Oral) TMIN: 36.6 C (Oral) TMAX: 37.1 C (Oral) HR: 80(Monitored) RR: 18 BP: 144/68 BP: 164/70(Line) SpO2: 97% Intake and Output 7AM Yesterday to 7AM Today Intake and Output (Last 24 hours) Intake Oral Intake 720.00 Administration Information 68.71 Output Urinary Catheter Output: 2500.00 Total Summary Total Intake 788.71 Total Output 2500.00 Fluid Balance -1711.29 Physical Exam General Appearance: in no acute distress. Alert. EENT: No thyroid disease. ocular movements intact Cardiac: RRR. S1 and S2. no murmurs or rubs. Lungs: Clear breath sounds. No wheeze or crackles noted. Abdomen: soft. non tender. bowel sounds audible Neurological: alert and oriented. Skin: warm. dry Weight Dosing Weight: 94.5 kg (09/16/22) Dosing Weight: 94.5 kg (09/16/22) Medications Medications (19) Active Scheduled: (13) atorvastatin 80 mg tablet 80 mg 1 tab(s), Oral, qHS clopidogrel 75 mg Tablet 75 mg 1 tab(s), Oral, qDay doxycycline 100 mg 10 mL, IV Piggyback, q12h gabapentin 300 mg Capsule 300 mg 1 cap(s), Oral, TID hydralazine 10 mg Tablet 10 mg 1 tab(s), Oral, BID insulin lispro 100 units/mL Soln (3 mL) Give 0-10 units/dose, Subcutaneous, achs isosorbide mononitrate 60 mg ER tablet 60 mg 1 tab(s), Oral, qDayAC meropenem 500 mg, IV Piggyback, q8h pantoprazole 40 mg VIAL 40 mg, IV Push, qDayAC paroxetine 30 mg tablet 30 mg 1 tab(s), Oral, qHS Pharmacy Consult 1 EA, Miscellaneous, Daily traZODONE 50 mg Tablet 50 mg 1 tab(s), Oral, qHS VANCOMYCIN -- pharmacy re-dosing by random level 1 EA, Miscellaneous, Daily Continuous: (1) heparin 25,000 unit(s) [10.5 unit(s)/kg/hr] + Dextrose 5% Premix Diluent 250 mL 250 mL, Intravenous, 9.92 mL/hr PRN: (5) acetaminophen 325 mg Tablet 650 mg 2 tab(s), Oral, q4h fentaNYL 50 mcg/mL (2mL) ampule 50 mcg 1 mL, IV Push, q1h heparin 5,000 units/mL (1 mL) vial 4,000 unit(s) 0.8 mL, IV Push, q6h midazolam 1 mg/mL (2mL) SDV 2 mg 2 mL, IV Push, q1h sodium zirconium cyclosilicate 10 g REC packet 10 gram(s) 1 packet(s), Oral, q8hr Lab Results 09/18 08:20 Glucose Level: 208 H Sodium Level: 137 Potassium Level: 3.3 L BUN: 18.0 Creatinine Lvl (s): 1.63 H 09/18 03:57 WBC: 9.7 Hgb: 11.9 L Hct: 35.6 L Platelet: 210 Neutrophil %: 72.4 BUN: 20.0 Creatinine Lvl (s): 1.73 H 09/17 13:16 WBC: 14.8 H Hgb: 12.5 L Hct: 38.4 L Platelet: 271 Neutrophil %: 75.9 H Protime: 11.3 PT International Ratio: 1.0 09/17 04:47 WBC: 14.5 H Hgb: 12.7 L Hct: 38.3 L Platelet: 305 Neutrophil %: 79.0 H Glucose Level: 187 H Sodium Level: 139 Potassium Level: 3.7 BUN: 19.0 Creatinine Lvl (s): 1.92 H EKG No qualifying data available. Assessment/Plan SOB - Shortness of breath Hypertensive emergency and flash pulmonary edema leading to respiratory failure 2/2 cocaine use Severe nonischemic cardiomyopathy EF 10 to 15% Diabetes Concern for LV apical thrombus Cocaine use CAD, 70% ramus, 30% LAD This 57-year-old male initially presented due to significant shortness of breath. He was intubated.Due to significant hypotension right and left heart catheterization showed mild CAD along with normal filling pressures and cardiac output. Patient was subsequently extubated and is now off pressors. Blood pressure is now stabilized. Euvolemic on exam. Bedside echocardiogram yesterday shows improved LVEF compared to echo on admission. Agree with continuing hydralazine/isosorbide mononitrate. Slowly add Aldactone Jardiance and Coreg. Continue statin and Plavix for prior CAD. Discussed cocaine cessation. We will follow-up patient in the advanced heart failure clinic after discharge. Digitally Signed by JOSE GEIGER MD on 09/18/2022 04:33 PM [facility] [id number] Infectious disease Progress note Date of Service 09/18/2022 Objective Vitals and Measurements T: 36.7 C (Oral) TMIN: 36.6 C (Oral) TMAX: 37.1 C (Oral) HR: 85(Monitored) RR: 18 BP: 171/70 BP: 104/45(Line) SpO2: 96% Physical Exam Chart reviewed, patient examined. Patient is alert and oriented x3, drowsy but FSC, resting in bed watching TV after lunch. No c/o NVD, 0 documented BMs in the last 24 hours. Denies SOB, reports occasional nonproductive cough. Denies any pain currently at rest, denies chills or sweats. No new complaints this PM, patient reports feeling improvement overall since admission. Respirations easy and nonlabored, 96% on NC2L. Patient has remained afebrile for the last 24 hours. Patient was extubated yesterday and is not currently requiring Pressor Support. Mycoplasma negative Hepatitis A/B/C nonreactive HIV 1/2 nonreactive Respiratory ID PCR negative RPR pending FOCUSED ASSESSMENT: CVS: Regular S1S2, NSR on monitor LUNGS: Clear diminished bilaterally, denies SOB, nonproductive cough, on NC2L ABDOMEN: Rounded, soft, nontender, + bowel sounds, passing gas, 0 documented BMs in the last 24 hours SKIN: No rashes noted INCISIONS/DRESSINGS: None EXTREMITIES: Generalized weakness/fatigue LINES/TUBES/DRAINS: Right TL IJ dressing dry & intact, no drainage or erythema at site. RFA IV dressing dry & intact, sanguinous drainage, no erythema at site. LFA IV dressing dry & intact, no drainage or erythema at site. Left radial a- line dressing dry & intact, no drainage or erythema at site. Isaac draining clear yellow urine. CURRENT ANTIBIOTICS: Zosyn 4.5g IV Q8h 09/16 - 09/17 Meropenem 500mg IV Q8h 09/17 - present Doxycycline 100mg IV Q12h 09/17 - present Vanco Dosing IV Q24h 09/16 - present CULTURE RESULTS/JEFF: 09/16 Legionella Urine -F Presumptive negative for L. pneumophila Serogroup 1 antigen in urine 09/16 SPAG Urine -F Presumptive negative for pneumococcal pneumonia 09/16 Urine Culture -F No growth at 48 hours 09/16 Blood Cultures 2/2 no growth to date -P 09/16 Respiratory Culture -F Normal respiratory veronica present at 48 hours Weight Dosing Weight: 94.5 kg (09/16/22) Dosing Weight: 94.5 kg (09/16/22) Medications Medications (19) Active Scheduled: (13) atorvastatin 80 mg tablet 80 mg 1 tab(s), Oral, qHS clopidogrel 75 mg Tablet 75 mg 1 tab(s), Oral, qDay doxycycline 100 mg 10 mL, IV Piggyback, q12h gabapentin 300 mg Capsule 300 mg 1 cap(s), Oral, TID hydralazine 50 mg Tablet 50 mg 1 tab(s), Oral, TID insulin lispro 100 units/mL Soln (3 mL) Give 0-10 units/dose, Subcutaneous, achs isosorbide mononitrate 60 mg ER tablet 60 mg 1 tab(s), Oral, qDayAC meropenem 500 mg, IV Piggyback, q8h pantoprazole 40 mg VIAL 40 mg, IV Push, qDayAC paroxetine 30 mg tablet 30 mg 1 tab(s), Oral, qHS Pharmacy Consult 1 EA, Miscellaneous, Daily traZODONE 50 mg Tablet 50 mg 1 tab(s), Oral, qHS VANCOMYCIN -- pharmacy re-dosing by random level 1 EA, Miscellaneous, Daily Continuous: (1) heparin 25,000 unit(s) [10.5 unit(s)/kg/hr] + Dextrose 5% Premix Diluent 250 mL 250 mL, Intravenous, 9.92 mL/hr PRN: (5) acetaminophen 325 mg Tablet 650 mg 2 tab(s), Oral, q4h fentaNYL 50 mcg/mL (2mL) ampule 50 mcg 1 mL, IV Push, q1h heparin 5,000 units/mL (1 mL) vial 4,000 unit(s) 0.8 mL, IV Push, q6h midazolam 1 mg/mL (2mL) SDV 2 mg 2 mL, IV Push, q1h sodium zirconium cyclosilicate 10 g REC packet 10 gram(s) 1 packet(s), Oral, q8hr Lab Results 09/18 08:20 Glucose Level: 208 H Sodium Level: 137 Potassium Level: 3.3 L BUN: 18.0 Creatinine Lvl (s): 1.63 H 09/18 03:57 WBC: 9.7 Hgb: 11.9 L Hct: 35.6 L Platelet: 210 Neutrophil %: 72.4 BUN: 20.0 Creatinine Lvl (s): 1.73 H 09/17 13:16 WBC: 14.8 H Hgb: 12.5 L Hct: 38.4 L Platelet: 271 Neutrophil %: 75.9 H Protime: 11.3 PT International Ratio: 1.0 09/17 04:47 WBC: 14.5 H Hgb: 12.7 L Hct: 38.3 L Platelet: 305 Neutrophil %: 79.0 H Glucose Level: 187 H Sodium Level: 139 Potassium Level: 3.7 BUN: 19.0 Creatinine Lvl (s): 1.92 H Imaging Results and Diagnostics US Abdomen Complete Result Date: September 18, 2022 Verified By: SHELDON RAMOS MD CLINICAL STATEMENT: IMPRESSION: Dilated common bile duct without additional abnormalities seen of thegallbladder to suggest cholecystitis. Correlate with ALP levels to determinethe need for further evaluation such as HIDA scan or MRCP. Hepatomegaly. Small likely 6 mm cyst. Given slightly indeterminateappearance consider follow-up ultrasound in 6-12 months to demonstratestability. Simple left renal cyst measuring 1.4cm. XR Chest 1 View Result Date: September 17, 2022 Verified By: GORDON KOEHLER MD CLINICAL STATEMENT: IMPRESSION: Near complete resolution of right mid lung opacification. No acutecardiopulmonary process by radiograph at this time. I have personally reviewed the images of this examination and agree with theresident's findings and interpretation. XR Chest 1 View Result Date: September 16, 2022 Verified By: MARY CAZARES MD CLINICAL STATEMENT: IMPRESSION: Interval placement of a right internal jugular central venous catheter withtip at the level of the upper SVC. No significant change in aeration of the right lung. XR Enteric Tube Placement Result Date: September 16, 2022 Verified By: BASSAM ROSALES MD CLINICAL STATEMENT: IMPRESSION: Masslike density projecting the right parahilar region. CT thorax withcontrast advised to exclude neoplasm. 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 Follow to resolution. Small pleural effusions not excluded XR Chest 1 View Result Date: September 16, 2022 Verified By: BASSAM ROSALES MD CLINICAL STATEMENT: IMPRESSION: Masslike density projecting in the right parahilar region. CT thorax withcontrast advised to exclude neoplasm. Mixed interstitial and alveolar disease is most prevalent in the rightparahilar and right lower lung. Correlate for signs of atypical pneumonia.Follow to resolution Endotracheal tube as above 09/15 TTE Summary: 1. Left ventricle: The cavity size is normal. Wall thickness is moderately increased. Systolic function is severely reduced. The estimated ejection fraction is 10% +/- 5%. There is severe diffuse hypokinesis. Possible apicalthrombus. Diastolic dysfunction is present. The LVOT systolic velocity-time integral is 9.7 cm. 2. Ventricular septum: Thickness is moderately increased. 3. Right ventricle: The RV systolic pressure by Doppler is 27 mm Hg. 4. Right atrium: The estimated right atrial pressure is 8 mm Hg. Recommendations: d/w Dr Brown Problem List Leukocytosis Questionable LV thrombus SHERITA Hypertensive emergency Hypoxic respiratory failure Systolic heart failure Digitally Signed by Katia Maldonado RN on 09/18/2022 01:01 PM [facility] [id number] Infectious disease Progress note Date of Service 09/18/2022 Objective Vitals and Measurements T: 36.7 C (Oral) TMIN: 36.6 C (Oral) TMAX: 37.1 C (Oral) HR: 85(Monitored) RR: 18 BP: 171/70 BP: 104/45(Line) SpO2: 96% Physical Exam Chart reviewed, patient examined. Patient is alert and oriented x3, drowsy but FSC, resting in bed watching TV after lunch. No c/o NVD, 0 documented BMs in the last 24 hours. Denies SOB, reports occasional nonproductive cough. Denies any pain currently at rest, denies chills or sweats. No new complaints this PM, patient reports feeling improvement overall since admission. Respirations easy and nonlabored, 96% on NC2L. Patient has remained afebrile for the last 24 hours. Patient was extubated yesterday and is not currently requiring Pressor Support. Mycoplasma negative Hepatitis A/B/C nonreactive HIV 1/2 nonreactive Respiratory ID PCR negative RPR pending FOCUSED ASSESSMENT: CVS: Regular S1S2, NSR on monitor LUNGS: Clear diminished bilaterally, denies SOB, nonproductive cough, on NC2L ABDOMEN: Rounded, soft, nontender, + bowel sounds, passing gas, 0 documented BMs in the last 24 hours SKIN: No rashes noted INCISIONS/DRESSINGS: None EXTREMITIES: Generalized weakness/fatigue LINES/TUBES/DRAINS: Right TL IJ dressing dry & intact, no drainage or erythema at site. RFA IV dressing dry & intact, sanguinous drainage, no erythema at site. LFA IV dressing dry & intact, no drainage or erythema at site. Left radial a- line dressing dry & intact, no drainage or erythema at site. Isaac draining clear yellow urine. CURRENT ANTIBIOTICS: Zosyn 4.5g IV Q8h 09/16 - 09/17 Meropenem 500mg IV Q8h 09/17 - present Doxycycline 100mg IV Q12h 09/17 - present Vanco Dosing IV Q24h 09/16 - present CULTURE RESULTS/JEFF: 09/16 Legionella Urine -F Presumptive negative for L. pneumophila Serogroup 1 antigen in urine 09/16 SPAG Urine -F Presumptive negative for pneumococcal pneumonia 09/16 Urine Culture -F No growth at 48 hours 09/16 Blood Cultures 2/2 no growth to date -P 09/16 Respiratory Culture -F Normal respiratory veronica present at 48 hours Weight Dosing Weight: 94.5 kg (09/16/22) Dosing Weight: 94.5 kg (09/16/22) Medications Medications (19) Active Scheduled: (13) atorvastatin 80 mg tablet 80 mg 1 tab(s), Oral, qHS clopidogrel 75 mg Tablet 75 mg 1 tab(s), Oral, qDay doxycycline 100 mg 10 mL, IV Piggyback, q12h gabapentin 300 mg Capsule 300 mg 1 cap(s), Oral, TID hydralazine 50 mg Tablet 50 mg 1 tab(s), Oral, TID insulin lispro 100 units/mL Soln (3 mL) Give 0-10 units/dose, Subcutaneous, achs isosorbide mononitrate 60 mg ER tablet 60 mg 1 tab(s), Oral, qDayAC meropenem 500 mg, IV Piggyback, q8h pantoprazole 40 mg VIAL 40 mg, IV Push, qDayAC paroxetine 30 mg tablet 30 mg 1 tab(s), Oral, qHS Pharmacy Consult 1 EA, Miscellaneous, Daily traZODONE 50 mg Tablet 50 mg 1 tab(s), Oral, qHS VANCOMYCIN -- pharmacy re-dosing by random level 1 EA, Miscellaneous, Daily Continuous: (1) heparin 25,000 unit(s) [10.5 unit(s)/kg/hr] + Dextrose 5% Premix Diluent 250 mL 250 mL, Intravenous, 9.92 mL/hr PRN: (5) acetaminophen 325 mg Tablet 650 mg 2 tab(s), Oral, q4h fentaNYL 50 mcg/mL (2mL) ampule 50 mcg 1 mL, IV Push, q1h heparin 5,000 units/mL (1 mL) vial 4,000 unit(s) 0.8 mL, IV Push, q6h midazolam 1 mg/mL (2mL) SDV 2 mg 2 mL, IV Push, q1h sodium zirconium cyclosilicate 10 g REC packet 10 gram(s) 1 packet(s), Oral, q8hr Lab Results 09/18 08:20 Glucose Level: 208 H Sodium Level: 137 Potassium Level: 3.3 L BUN: 18.0 Creatinine Lvl (s): 1.63 H 09/18 03:57 WBC: 9.7 Hgb: 11.9 L Hct: 35.6 L Platelet: 210 Neutrophil %: 72.4 BUN: 20.0 Creatinine Lvl (s): 1.73 H 09/17 13:16 WBC: 14.8 H Hgb: 12.5 L Hct: 38.4 L Platelet: 271 Neutrophil %: 75.9 H Protime: 11.3 PT International Ratio: 1.0 10 04:47 WBC: 14.5 H Hgb: 12.7 L Hct: 38.3 L Platelet: 305 Neutrophil %: 79.0 H Glucose Level: 187 H Sodium Level: 139 Potassium Level: 3.7 BUN: 19.0 Creatinine Lvl (s): 1.92 H Imaging Results and Diagnostics US Abdomen Complete Result Date: September 18, 2022 Verified By: SHELDON RAMOS MD CLINICAL STATEMENT: IMPRESSION: Dilated common bile duct without additional abnormalities seen of thegallbladder to suggest cholecystitis. Correlate with ALP levels to determinethe need for further evaluation such as HIDA scan or MRCP. Hepatomegaly. Small likely 6 mm cyst. Given slightly indeterminateappearance consider follow-up ultrasound in 6-12 months to demonstratestability. Simple left renal cyst measuring 1.4cm. XR Chest 1 View Result Date: September 17, 2022 Verified By: GORDON KOEHLER MD CLINICAL STATEMENT: IMPRESSION: Near complete resolution of right mid lung opacification. No acutecardiopulmonary process by radiograph at this time. I have personally reviewed the images of this examination and agree with theresident's findings and interpretation. XR Chest 1 View Result Date: September 16, 2022 Verified By: MARY CAZARES MD CLINICAL STATEMENT: IMPRESSION: Interval placement of a right internal jugular central venous catheter withtip at the level of the upper SVC. No significant change in aeration of the right lung. XR Enteric Tube Placement Result Date: September 16, 2022 Verified By: BASSAM ROSALES MD CLINICAL STATEMENT: IMPRESSION: Masslike density projecting the right parahilar region. CT thorax withcontrast advised to exclude neoplasm. 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 Follow to resolution. Small pleural effusions not excluded XR Chest 1 View Result Date: September 16, 2022 Verified By: BASSAM ROSALES MD CLINICAL STATEMENT: IMPRESSION: Masslike density projecting in the right parahilar region. CT thorax withcontrast advised to exclude neoplasm. Mixed interstitial and alveolar disease is most prevalent in the rightparahilar and right lower lung. Correlate for signs of atypical pneumonia.Follow to resolution Endotracheal tube as above 09/15 TTE Summary: 1. Left ventricle: The cavity size is normal. Wall thickness is moderately increased. Systolic function is severely reduced. The estimated ejection fraction is 10% +/- 5%. There is severe diffuse hypokinesis. Possible apicalthrombus. Diastolic dysfunction is present. The LVOT systolic velocity-time integral is 9.7 cm. 2. Ventricular septum: Thickness is moderately increased. 3. Right ventricle: The RV systolic pressure by Doppler is 27 mm Hg. 4. Right atrium: The estimated right atrial pressure is 8 mm Hg. Recommendations: d/w Dr Brown Problem List Leukocytosis Questionable LV thrombus SHERITA Hypertensive emergency Hypoxic respiratory failure Systolic heart failure Digitally Signed by Katia Maldonado RN on 09/18/2022 01:01 PM [facility] [id number] Cardiology Progress note Subjective Doing well. Denies chest pain, lightness, shortness breath, palpitations. Objective Vitals and Measurements T: 36.7 C (Oral) TMIN: 36.6 C (Oral) TMAX: 37.1 C (Oral) HR: 85(Monitored) RR: 18 BP: 171/70 BP: 104/45(Line) SpO2: 96% Intake and Output 7AM Yesterday to 7AM Today Intake and Output (Last 24 hours) Intake Oral Intake 720.00 Administration Information 68.71 Output Urinary Catheter Output: 2500.00 Total Summary Total Intake 788.71 Total Output 2500.00 Fluid Balance -1711.29 Physical Exam GENERAL: Well nourished; no acute distress. PSYCHIATRIC: Alert and oriented x 3, cooperative, mood normal, affect normal. HEAD: Normocephalic, nontraumatic head. EYES: Pupils equal, round, and reactive to light; conjunctiva clear bilaterally. Lids within normallimits. NECK: Supple, no posterior midline tenderness. Normal range of motion. No thyromegaly noted. CARDIAC: Regular rate, regular rhythm, no murmurs noted. RESPIRATORY: Regular rate and depth; no distress, RIGHT lung clear, LEFT lung clear. Breath sounds normal. ABDOMEN: Soft, nontender. Normal bowel sounds. EXTREMITIES: No trace lower extremity pitting edema. No lymphedema. Dorsalis Pedis pulse +2/4 bilaterally. Posterior Tibialis pulse +2/4 bilaterally. NEURO: Moves all extremities DERM: Warm and dry. Normal turgor. No observed exanthem. No significant dandruff. Weight Dosing Weight: 94.5 kg (09/16/22) Dosing Weight: 94.5 kg (09/16/22) Medications Medications (21) Active Scheduled: (15) atorvastatin 80 mg tablet 80 mg 1 tab(s), Oral, qHS clopidogrel 75 mg Tablet 75 mg 1 tab(s), Oral, qDay doxycycline 100 mg 10 mL, IV Piggyback, q12h gabapentin 300 mg Capsule 300 mg 1 cap(s), Oral, TID hydralazine 50 mg Tablet 50 mg 1 tab(s), Oral, TID insulin lispro 100 units/mL Soln (3 mL) Give 0-10 units/dose, Subcutaneous, achs isosorbide mononitrate 60 mg ER tablet 60 mg 1 tab(s), Oral, qDayAC meropenem 500 mg, IV Piggyback, q8h pantoprazole 40 mg VIAL 40 mg, IV Push, qDayAC paroxetine 30 mg tablet 30 mg 1 tab(s), Oral, qHS Pharmacy Consult 1 EA, Miscellaneous, Daily potassium chloride 20 mEq ER tablet 40 mEq 2 tab(s), Oral, Once potassium chloride 20 mEq ER tablet 20 mEq 1 tab(s), Oral, Once traZODONE 50 mg Tablet 50 mg 1 tab(s), Oral, qHS VANCOMYCIN -- pharmacy re-dosing by random level 1 EA, Miscellaneous, Daily Continuous: (1) heparin 25,000 unit(s) [10.5 unit(s)/kg/hr] + Dextrose 5% Premix Diluent 250 mL 250 mL, Intravenous, 9.92 mL/hr PRN: (5) acetaminophen 325 mg Tablet 650 mg 2 tab(s), Oral, q4h fentaNYL 50 mcg/mL (2mL) ampule 50 mcg 1 mL, IV Push, q1h heparin 5,000 units/mL (1 mL) vial 4,000 unit(s) 0.8 mL, IV Push, q6h midazolam 1 mg/mL (2mL) SDV 2 mg 2 mL, IV Push, q1h sodium zirconium cyclosilicate 10 g REC packet 10 gram(s) 1 packet(s), Oral, q8hr Lab Results 09/18 08:20 Glucose Level: 208 H Sodium Level: 137 Potassium Level: 3.3 L BUN: 18.0 Creatinine Lvl (s): 1.63 H 09/18 03:57 WBC: 9.7 Hgb: 11.9 L Hct: 35.6 L Platelet: 210 Neutrophil %: 72.4 BUN: 20.0 Creatinine Lvl (s): 1.73 H 09/17 13:16 WBC: 14.8 H Hgb: 12.5 L Hct: 38.4 L Platelet: 271 Neutrophil %: 75.9 H Protime: 11.3 PT International Ratio: 1.0 09/17 04:47 WBC: 14.5 H Hgb: 12.7 L Hct: 38.3 L Platelet: 305 Neutrophil %: 79.0 H Glucose Level: 187 H Sodium Level: 139 Potassium Level: 3.7 BUN: 19.0 Creatinine Lvl (s): 1.92 H EKG No qualifying data available. Assessment/Plan Shock, unknown cause, resolved Severe nonischemic cardiomyopathy EF 10 to 15% Hypertensive emergency, resolved Flash pulmonary edema secondary to above, resolved Hypoxic hypercapnic respiratory failure status post mechanical ventilation, now extubated Diabetes Concern for LV apical thrombus Substance use disorder Leukocytosis, resolved SHERITA, stable Patient initially presented as a transfer with concern for STEMI. STEMI was canceled as EKG not consistent with STEMI. Patient is to have blood pressure of 250 systolic with heart rates of 150. Troponin initially 90. Patient was started on nitro gtt. with mild improvement in blood pressure. Approximately 4 hours later, patient's blood pressure began to severely decreased around 60/40 mmHg necessitating levo. Patient also had an echocardiogram that demonstrated ejection fraction of 10% with a questionable LV thrombus. Patient was subsequently started on Levophed. He initially did not have any evidence of endorgan damage with normal lactate creatinine and LFTs. Due to hypotension and concern for cardiogenic shock, patient was emergently taken for left heart cath that demonstrated a normal cardiac index, normal pulmonary capillary wedge pressure and mild CADwith no culprit lesion. No intervention was performed. Patient was extubated on 09/17 and currently doing well. His blood pressures have returned to normaland he is even hypertensive. He has been off Levophed for the past 12 hours. Patient with initial leukocytosis that has persisted although improved and now resolved. Unclear source of infection. Currently covering broadly. Infectious disease following.. Blood cultures negative. Did have a long and detailed discussion with patient. Patient does admit to regular cocaine use. This is the likely cause of patient's admission. Will defer antibiotic and infectious workup to ID. . For questionable LV thrombus, we will continue therapeutic heparin. Will likely switch to p.o. anticoagulation tomorrow. For heart failure, patient appears euvolemic. Starting hydralazine and Imdur. If creatinine improves, can start guideline directed medical therapy. Patient ambulating and hopefully able to discharge home in the next day or so. Patient educated extensively on importance of cessation of recreational drugs. He was educated on the high risk of dying if he does cocaine or other drugs given his severely reduced ejection fraction. Digitally Signed by MIGUELINA BROWN MD on 09/18/2022 12:17 PM [id number] Pulmonary Progress note Date of Service 09/18/22 Subjective Able to be successfully extubated. On 2 L nasal cannula Objective Vitals and Measurements T: 36.6 C (Oral) TMIN: 36.6 C (Oral) TMAX: 37.1 C (Oral) HR: 84(Monitored) RR: 18 BP: 191/83(Line) SpO2: 97% Intake and Output 7AM Yesterday to 7AM Today Intake and Output (Last 24 hours) Intake Oral Intake 720.00 Administration Information 68.71 Output Urinary Catheter Output: 1650.00 Total Summary Total Intake 788.71 Total Output 1650.00 Fluid Balance -861.29 Physical Exam General-no acute distress, alert HEENT-normocephalic, atraumatic, right IJ triple-lumen catheter in place Pulmonary-clear, no wheeze Cardiovascular-regular, no appreciable murmurs, gallops or rubs Abdomen-soft, nontender, bowel sounds positive Extremities-no cyanosis, clubbing or edema Neurologic-nonfocal Weight Dosing Weight: 94.5 kg (09/16/22) Dosing Weight: 94.5 kg (09/16/22) Medications Medications (18) Active Scheduled: (11) atorvastatin 80 mg tablet 80 mg 1 tab(s), Oral, qHS clopidogrel 75 mg Tablet 75 mg 1 tab(s), Oral, qDay doxycycline 100 mg 10 mL, IV Piggyback, q12h gabapentin 300 mg Capsule 300 mg 1 cap(s), Oral, TID insulin lispro 100 units/mL Soln (3 mL) Give 0-10 units/dose, Subcutaneous, achs meropenem 500 mg, IV Piggyback, q8h pantoprazole 40 mg VIAL 40 mg, IV Push, qDayAC paroxetine 30 mg tablet 30 mg 1 tab(s), Oral, qHS Pharmacy Consult 1 EA, Miscellaneous, Daily traZODONE 50 mg Tablet 50 mg 1 tab(s), Oral, qHS VANCOMYCIN -- pharmacy re-dosing by random level 1 EA, Miscellaneous, Daily Continuous: (2) heparin 25,000 unit(s) [10.5 unit(s)/kg/hr] + Dextrose 5% Premix Diluent 250 mL 250 mL, Intravenous, 9.92 mL/hr norepinephrine 8 mg [5 mcg/min] + NS Premix Diluent 250 mL 250 mL, Intravenous, 9.38 mL/hr PRN: (5) acetaminophen 325 mg Tablet 650 mg 2 tab(s), Oral, q4h fentaNYL 50 mcg/mL (2mL) ampule 50 mcg 1 mL, IV Push, q1h heparin 5,000 units/mL (1 mL) vial 4,000 unit(s) 0.8 mL, IV Push, q6h midazolam 1 mg/mL (2mL) SDV 2 mg 2 mL, IV Push, q1h sodium zirconium cyclosilicate 10 g REC packet 10 gram(s) 1 packet(s), Oral, q8hr Lab Results 09/18 08:20 Glucose Level: 208 H Sodium Level: 137 Potassium Level: 3.3 L BUN: 18.0 Creatinine Lvl (s): 1.63 H 09/18 03:57 WBC: 9.7 Hgb: 11.9 L Hct: 35.6 L Platelet: 210 Neutrophil %: 72.4 BUN: 20.0 Creatinine Lvl (s): 1.73 H 09/17 13:16 WBC: 14.8 H Hgb: 12.5 L Hct: 38.4 L Platelet: 271 Neutrophil %: 75.9 H Protime: 11.3 PT International Ratio: 1.0 09/17 04:47 WBC: 14.5 H Hgb: 12.7 L Hct: 38.3 L Platelet: 305 Neutrophil %: 79.0 H Glucose Level: 187 H Sodium Level: 139 Potassium Level: 3.7 BUN: 19.0 Creatinine Lvl (s): 1.92 H 09/16 22:53 Glucose Level: 116 H Sodium Level: 141 Potassium Level: 3.5 BUN: 16.0 Creatinine Lvl (s): 1.66 H EKG No qualifying data available. Assessment/Plan 1. Hypertensive urgency/emergency 2. Flash pulmonary edema 3. Acute decompensated systolic heart failure EF 10% Plan: Has done well following extubation, on 2 L nasal cannula On Doxy, lonnie and vancomycin per ID Vasopressor management per cardiology Recommend switching Lovenox to heparin by weight given worsening renal function SHERITA improving -Activity as tolerated Time Spent 15 minutes, pulmonary will sign off Digitally Signed by NANCIE YOON MD on 09/18/2022 12:00 PM [facility] [id number] Note. MICRO - Microbiology PROCEDURE: Culture Respiratory with Gram Stain [^1 *1] SOURCE: Sputum BODY SITE: COLLECTED DATE/TIME: 09/16/2022 20:53 EDT RECEIVED DATE/TIME: 09/16/2022 21:08 EDT START DATE/TIME: 09/16/2022 21:08 EDT FREE TEXT SOURCE: FINAL REPORTS Final Report [] Verified Date/Time/Personnel: 09/18/2022 07:31 EDT Normal respiratory veronica present at 48 hours Sensitivity testing not indicated PRELIMINARY REPORTS Preliminary Report [] Verified Date/Time/Personnel: 09/17/2022 09:50 EDT Negative for respiratory pathogens at 24 hours. STAINS GS [] Verified Date/Time/Personnel: 09/16/2022 21:47 EDT Predominance of polys 2+ Polymorphonuclear cells 1+ Epithelial cells 2+ Gram Positive Cocci Rare Gram Positive Rods Interpretive Data ^1: Culture Respiratory with Gram Stain Requests for Mycoplasma, Legionella, Fungi, Mycobacteria, Chlamydia, and Viruses require ordering of those individual tests. Performing Locations *1: This test was performed at: [facility], [address] [place] [address], [id number] , [facility] ([place])09-18-2022 Note ORIGINAL EXAMINATION: COMPLETE ABDOMINAL ULTRASOUND 09/18/2022 9:30 am COMPARISON: None. HISTORY: ORDERING SYSTEM PROVIDED HISTORY: Reason for Exam: infection FINDINGS: LIVER: The liver is enlarged measuring 20.1 cm however demonstrates normal echogenicity without evidence of intrahepatic biliary ductal dilatation. There is a small 6 x 6 x 5 mm hypoechoic lesion likely a cyst. Small benign 1.1 cm calcification is seen within the liver. BILIARY SYSTEM: Gallbladder is unremarkable without evidence of pericholecystic fluid, wall thickening or stones. Negative sonographic Olivera's sign. Common bile duct is dilated measuring 9 mm. KIDNEYS: The kidneys are unremarkable in appearance without evidence of hydronephrosis. A simple left renal cyst is seen measuring 1.4 x 1.2 x 1.2 cm. PANCREAS: Visualized portions of the pancreas are unremarkable. The tail of the pancreas is limited secondary to overlying bowel gas. SPLEEN: The spleen is unremarkable in appearance. Spleen is within normal limits in size. IVC: The IVC is patent. AORTA: Aorta is patent without aneurysm. OTHER: No evidence of ascites. IMPRESSION: Dilated common bile duct without additional abnormalities seen of the gallbladder to suggest cholecystitis. Correlate with ALP levels to determine the need for further evaluation such as HIDA scan or MRCP. Hepatomegaly. Small likely 6 mm cyst. Given slightly indeterminate appearance consider follow-up ultrasound in 6-12 months to demonstrate stability. Simple left renal cyst measuring 1.4 cm. Interpreted by: Sheldon Ramos MD Preliminary Report By: Sheldon Ramos MD Electronically signed By Sheldon Ramos MD Dictated Date: 09/18/2022 11:20:55 AM Prelim Date: 09/18/2022 11:30:45 AM Sign Date: 09/18/2022 11:30:45 AM Ordering Provider: [facility]08-11-2023 Note. MICRO - Microbiology PROCEDURE: Urine Culture [*1] SOURCE: Urine BODY SITE: COLLECTED DATE/TIME: 09/16/2022 19:12 EDT RECEIVED DATE/TIME: 09/16/2022 20:41 EDT START DATE/TIME: 09/16/2022 20:42 EDT FREE TEXT SOURCE: FINAL REPORTS Final Report [] Verified Date/Time/Personnel: 09/18/2022 07:19 EDT No growth at 48 hours. PRELIMINARY REPORTS Preliminary Report [] Verified Date/Time/Personnel: 09/17/2022 08:16 EDT No growth to date Performing Locations *1: This test was performed at: [facility], [address] [place] [address], [id number] , [facility] ([place])09-17-2022 Cardiology Consult note Date of Service 09/17/2022 Reason for Consultation Shock, severe cardiomyopathy Referring Physician General cardiology History of Present Illness This is a 57-year-old male with prior history of hypertension, diabetes, possible cardiomyopathy who initially presented to the emergency department due to shortness of breath. He was noted to be unable to speak in full sentences without getting short of breath. He was tachycardic and significantlytachypneic. Due to worsening respiratory status he was intubated. Initially STEMI alert was called however he was noted to have left ventricular hypertrophy. He was also noted to be significantly hypertensive with blood pressure systolics greater than 240. He was started on nitroglycerin drip. Later on patient developed hypotension. Urgent right and left heart catheterization showed normal filling pressures along with cardiac index/output. Mild to moderate CAD was noted. Stat echocardiogram at bedside showed severely reduced LVEF 10 to 15%. Physical Exam Vitals and Measurements T: 36.7 C (Axillary) TMIN: 36.5 C (Oral) TMAX: 36.7 C (Axillary) HR: 69(Monitored) RR: 14(Total) BP: 80/53 BP: 147/60(Line) SpO2: 97% HT: 182.9 cm WT: 94.5 kg BMI: 28.25 Weight Dosing Weight: 94.5 kg (09/16/22) Dosing Weight: 94.5 kg (09/16/22) General Appearance: Intubated EENT: No thyroid disease. ocular movements intact Cardiac: RRR. S1 and S2. no murmurs or rubs. Lungs: Clear breath sounds. No wheeze or crackles noted. Abdomen: Soft. non tender. bowel sounds audible Neurological: Alert Skin: Warm. dry Lab Results 09/17 13:16 WBC: 14.8 H Hgb: 12.5 L Hct: 38.4 L Platelet: 271 Neutrophil %: 75.9 H Protime: 11.3 PT International Ratio: 1.0 09/17 04:47 WBC: 14.5 H Hgb: 12.7 L Hct: 38.3 L Platelet: 305 Neutrophil %: 79.0 H Glucose Level: 187 H Sodium Level: 139 Potassium Level: 3.7 BUN: 19.0 Creatinine Lvl (s): 1.92 H 09/16 22:53 Glucose Level: 116 H Sodium Level: 141 Potassium Level: 3.5 BUN: 16.0 Creatinine Lvl (s): 1.66 H 09/16 20:08 WBC: 17.9 H Hgb: 12.9 L Hct: 39.0 L Platelet: 310 Neutrophil %: 84.8 H Glucose Level: 240 H Sodium Level: 139 Potassium Level: 3.5 BUN: 16.0 Creatinine Lvl (s): 1.60 H 09/16 19:35 Glucose Level: 295 H Potassium Level: 3.5 09/16 15:23 WBC: 21.4 H Hgb: 14.9 Hct: 46.5 Platelet: 294 Neutrophil %: 91.2 H Glucose Level: 510 C Sodium Level: 132 L Potassium Level: 7.0 C BUN: 12.0 Creatinine Lvl (s): 1.31 09/16 14:24 WBC: 27.0 H Hgb: 15.2 Hct: 46.6 Platelet: 348 Neutrophil %: 88.1 H 09/16 13:39 Glucose Level: 514 C Sodium Level: 133 L Potassium Level: 5.5 H BUN: 12.0 Creatinine Lvl (s): 1.15 09/16 13:11 Hgb: 15.4 Hct: 47.0 Protime: 10.1 PT International Ratio: 0.9 EKG EC09/17/22: SINUS RHYTHM ANTERIOR Q WAVES, POSSIBLY DUE TO LVH LVH W/ REPOL ABNORMALITIES, POSSIBLE ISCHEMIA PROLONGED QT INTERVAL Electronic Signature: VANESSA KO MD 09/17/2022 09:17:59 Assessment/Plan SOB - Shortness of breath Shock, unknown cause Severe nonischemic cardiomyopathy EF 10 to 15% Hypertensive emergency Flash pulmonary edema secondary to above Hypoxic hypercapnic respiratory failure status post mechanical ventilation Diabetes Concern for LV apical thrombus This 57-year-old male initially presented due to significant shortness of breath. He was intubated.Due to significant hypotension right and left heart catheterization showed mild CAD along with normal filling pressures and cardiac output. In the past 24 hours patient has been weaned off all pressors. He is also awake and responding and will soon be extubated. Echocardiogram yesterday showed severely reduced LVEF 10 to 15%. Bedside echocardiogram shows mild improvement from yesterday. Chest x-ray is also showing significant improvement compared to yesterday. Recommend symptomatic management. Once patient is extubated and more stable we will restart guideline directed medical therapy. Reportedly patient is on Aldactone lisinopril and carvedilol prior to admission however unclear if patient was taking these or not. Also there is concern for drug use leading to hypertension and flash pulmonary edema. Await urine drug screen. In the meantime pulmonary critical care infectious disease team are following to rule out underlying infection. Appreciate recommendations. Problem List/Past Medical History Ongoing No qualifying data Historical No qualifying data Procedure/Surgical History No qualifying data available. Medications Inpatient acetaminophen, 650 mg= 2 tab(s), Oral, q4h, PRN atorvastatin, 80 mg= 1 tab(s), Oral, qHS clopidogrel, 75 mg= 1 tab(s), Oral, qDay Dextrose, 25 gram(s)= 50 mL, IV Push, AsDirected, PRN fentaNYL, 50 mcg= 1 mL, IV Push, q1h, PRN gabapentin, 300 mg= 1 cap(s), Oral, TID Heparin for IV 25,000 unit(s) [10.5 unit(s)/kg/hr] + Dextrose 5% Premix Diluent 250 mL Heparin HBW CARDIAC Bolus 5000 units/mL, 4000 unit(s)= 0.8 mL, 60 unit(s)/kg, IV Push, q6h, PRN HumuLIN R, sliding scale insulin, Subcutaneous, q4h, PRN Insulin Regular for IV 100 unit(s) + NS Premix Diluent 100 mL Lokelma, 10 gram(s)= 1 packet(s), Oral, q8hr, PRN Norepinephrine for IV 8 mg [5 mcg/min] + NS PMX titrate 250 mL pantoprazole IV Push, 40 mg, IV Push, qDayAC PARoxetine, 30 mg= 1 tab(s), Oral, qHS Peridex 0.12% oral rinse liquid, 15 mL, Swish & Spit, QID Propofol for IV 1,000 mg [10 mcg/kg/min] + IV Premix Diluent titrate 100 mL Puralube ophth solution, 1 drop(s), Eyes, both, q8h Puralube ophth solution, 1 drop(s), Eyes, both, AsDirected, PRN Puralube ophthalmic ointment, 1 smiley, Eyes, both, q8h Puralube ophthalmic ointment, 1 smiley, Eyes, both, AsDirected, PRN Sublimaze, 25 mcg= 0.5 mL, IV Push, q15min, PRN vancomycin IVPB, 1500 mg= 300 mL, 15 mg/kg, IV Piggyback, q12hr Versed, 2 mg= 2 mL, IV Push, q1h, PRN Zosyn, 4.5 gram(s)= 100 mL, IV Piggyback, q8h Home acetaminophen 325 mg oral tablet, 650 mg= 2 tab(s), Oral, q4h, PRN atorvastatin 80 mg oral tablet, 80 mg= 1 tab(s), Oral, qHS carvedilol 12.5 mg oral tablet, 12.5 mg= 1 tab(s), Oral, BID clopidogrel 75 mg oral tablet, 75 mg= 1 tab(s), Oral, qDay furosemide 40 mg oral tablet, 40 mg= 1 tab(s), Oral, BID gabapentin 300 mg oral capsule, 300 mg= 1 cap(s), Oral, TID glipiZIDE 5 mg oral tablet, 5 mg= 1 tab(s), Oral, BIDM lisinopril 20 mg oral tablet, 20 mg= 1 tab(s), Oral, qDay metFORMIN 500 mg oral tablet (IR), 1000 mg= 2 tab(s), Oral, BID PARoxetine 30 mg oral tablet, 30 mg= 1 tab(s), Oral, qHS spironolactone 25 mg oral tablet, 25 mg= 1 tab(s), Oral, qDay traZODone 50 mg oral tablet, 50 mg= 1 tab(s), Oral, qHS Allergies NKA Social History Smoking Status - 04/25/2015 Current every day smoker Immunizations No qualifying data available. Digitally Signed by JOSE GEIGER MD on 09/17/2022 04:24 PM [id number] Cardiology Consult note Date of Service 09/17/2022 Reason for Consultation Shock, severe cardiomyopathy Referring Physician General cardiology History of Present Illness This is a 57-year-old male with prior history of hypertension, diabetes, possible cardiomyopathy who initially presented to the emergency department due to shortness of breath. He was noted to be unable to speak in full sentences without getting short of breath. He was tachycardic and significantlytachypneic. Due to worsening respiratory status he was intubated. Initially STEMI alert was called however he was noted to have left ventricular hypertrophy. He was also noted to be significantly hypertensive with blood pressure systolics greater than 240. He was started on nitroglycerin drip. Later on patient developed hypotension. Urgent right and left heart catheterization showed normal filling pressures along with cardiac index/output. Mild to moderate CAD was noted. Stat echocardiogram at bedside showed severely reduced LVEF 10 to 15%. Physical Exam Vitals and Measurements T: 36.7 C (Axillary) TMIN: 36.5 C (Oral) TMAX: 36.7 C (Axillary) HR: 69(Monitored) RR: 14(Total) BP: 80/53 BP: 147/60(Line) SpO2: 97% HT: 182.9 cm WT: 94.5 kg BMI: 28.25 Weight Dosing Weight: 94.5 kg (09/16/22) Dosing Weight: 94.5 kg (09/16/22) General Appearance: Intubated EENT: No thyroid disease. ocular movements intact Cardiac: RRR. S1 and S2. no murmurs or rubs. Lungs: Clear breath sounds. No wheeze or crackles noted. Abdomen: Soft. non tender. bowel sounds audible Neurological: Alert Skin: Warm. dry Lab Results 09/17 13:16 WBC: 14.8 H Hgb: 12.5 L Hct: 38.4 L Platelet: 271 Neutrophil %: 75.9 H Protime: 11.3 PT International Ratio: 1.0 09/17 04:47 WBC: 14.5 H Hgb: 12.7 L Hct: 38.3 L Platelet: 305 Neutrophil %: 79.0 H Glucose Level: 187 H Sodium Level: 139 Potassium Level: 3.7 BUN: 19.0 Creatinine Lvl (s): 1.92 H 09/16 22:53 Glucose Level: 116 H Sodium Level: 141 Potassium Level: 3.5 BUN: 16.0 Creatinine Lvl (s): 1.66 H 09/16 20:08 WBC: 17.9 H Hgb: 12.9 L Hct: 39.0 L Platelet: 310 Neutrophil %: 84.8 H Glucose Level: 240 H Sodium Level: 139 Potassium Level: 3.5 BUN: 16.0 Creatinine Lvl (s): 1.60 H 09/16 19:35 Glucose Level: 295 H Potassium Level: 3.5 09/16 15:23 WBC: 21.4 H Hgb: 14.9 Hct: 46.5 Platelet: 294 Neutrophil %: 91.2 H Glucose Level: 510 C Sodium Level: 132 L Potassium Level: 7.0 C BUN: 12.0 Creatinine Lvl (s): 1.31 09/16 14:24 WBC: 27.0 H Hgb: 15.2 Hct: 46.6 Platelet: 348 Neutrophil %: 88.1 H 09/16 13:39 Glucose Level: 514 C Sodium Level: 133 L Potassium Level: 5.5 H BUN: 12.0 Creatinine Lvl (s): 1.15 09/16 13:11 Hgb: 15.4 Hct: 47.0 Protime: 10.1 PT International Ratio: 0.9 EKG EC09/17/22: SINUS RHYTHM ANTERIOR Q WAVES, POSSIBLY DUE TO LVH LVH W/ REPOL ABNORMALITIES, POSSIBLE ISCHEMIA PROLONGED QT INTERVAL Electronic Signature: VANESSA KO MD 09/17/2022 09:17:59 Assessment/Plan SOB - Shortness of breath Shock, unknown cause Severe nonischemic cardiomyopathy EF 10 to 15% Hypertensive emergency Flash pulmonary edema secondary to above Hypoxic hypercapnic respiratory failure status post mechanical ventilation Diabetes Concern for LV apical thrombus This 57-year-old male initially presented due to significant shortness of breath. He was intubated.Due to significant hypotension right and left heart catheterization showed mild CAD along with normal filling pressures and cardiac output. In the past 24 hours patient has been weaned off all pressors. He is also awake and responding and will soon be extubated. Echocardiogram yesterday showed severely reduced LVEF 10 to 15%. Bedside echocardiogram shows mild improvement from yesterday. Chest x-ray is also showing significant improvement compared to yesterday. Recommend symptomatic management. Once patient is extubated and more stable we will restart guideline directed medical therapy. Reportedly patient is on Aldactone lisinopril and carvedilol prior to admission however unclear if patient was taking these or not. Also there is concern for drug use leading to hypertension and flash pulmonary edema. Await urine drug screen. In the meantime pulmonary critical care infectious disease team are following to rule out underlying infection. Appreciate recommendations. Problem List/Past Medical History Ongoing No qualifying data Historical No qualifying data Procedure/Surgical History No qualifying data available. Medications Inpatient acetaminophen, 650 mg= 2 tab(s), Oral, q4h, PRN atorvastatin, 80 mg= 1 tab(s), Oral, qHS clopidogrel, 75 mg= 1 tab(s), Oral, qDay Dextrose, 25 gram(s)= 50 mL, IV Push, AsDirected, PRN fentaNYL, 50 mcg= 1 mL, IV Push, q1h, PRN gabapentin, 300 mg= 1 cap(s), Oral, TID Heparin for IV 25,000 unit(s) [10.5 unit(s)/kg/hr] + Dextrose 5% Premix Diluent 250 mL Heparin HBW CARDIAC Bolus 5000 units/mL, 4000 unit(s)= 0.8 mL, 60 unit(s)/kg, IV Push, q6h, PRN HumuLIN R, sliding scale insulin, Subcutaneous, q4h, PRN Insulin Regular for IV 100 unit(s) + NS Premix Diluent 100 mL Lokelma, 10 gram(s)= 1 packet(s), Oral, q8hr, PRN Norepinephrine for IV 8 mg [5 mcg/min] + NS PMX titrate 250 mL pantoprazole IV Push, 40 mg, IV Push, qDayAC PARoxetine, 30 mg= 1 tab(s), Oral, qHS Peridex 0.12% oral rinse liquid, 15 mL, Swish & Spit, QID Propofol for IV 1,000 mg [10 mcg/kg/min] + IV Premix Diluent titrate 100 mL Puralube ophth solution, 1 drop(s), Eyes, both, q8h Puralube ophth solution, 1 drop(s), Eyes, both, AsDirected, PRN Puralube ophthalmic ointment, 1 smiley, Eyes, both, q8h Puralube ophthalmic ointment, 1 smiley, Eyes, both, AsDirected, PRN Sublimaze, 25 mcg= 0.5 mL, IV Push, q15min, PRN vancomycin IVPB, 1500 mg= 300 mL, 15 mg/kg, IV Piggyback, q12hr Versed, 2 mg= 2 mL, IV Push, q1h, PRN Zosyn, 4.5 gram(s)= 100 mL, IV Piggyback, q8h Home acetaminophen 325 mg oral tablet, 650 mg= 2 tab(s), Oral, q4h, PRN atorvastatin 80 mg oral tablet, 80 mg= 1 tab(s), Oral, qHS carvedilol 12.5 mg oral tablet, 12.5 mg= 1 tab(s), Oral, BID clopidogrel 75 mg oral tablet, 75 mg= 1 tab(s), Oral, qDay furosemide 40 mg oral tablet, 40 mg= 1 tab(s), Oral, BID gabapentin 300 mg oral capsule, 300 mg= 1 cap(s), Oral, TID glipiZIDE 5 mg oral tablet, 5 mg= 1 tab(s), Oral, BIDM lisinopril 20 mg oral tablet, 20 mg= 1 tab(s), Oral, qDay metFORMIN 500 mg oral tablet (IR), 1000 mg= 2 tab(s), Oral, BID PARoxetine 30 mg oral tablet, 30 mg= 1 tab(s), Oral, qHS spironolactone 25 mg oral tablet, 25 mg= 1 tab(s), Oral, qDay traZODone 50 mg oral tablet, 50 mg= 1 tab(s), Oral, qHS Allergies NKA Social History Smoking Status - 04/25/2015 Current every day smoker Immunizations No qualifying data available. Digitally Signed by JOSE GEIGER MD on 09/17/2022 04:24 PM [id number] HCoV 229E RNA [place]+non-probe Ql (Nph)Not Detected *NA* (09/17/22 12:55 PM) Auto Viro/Sero [id number] Critical care medicine Consult note Date of Service 09/17/2022 Reason for Consultation Critical care management Referring Physician Dr. Rosado History of Present Illness 57-year-old male past medical history diabetes, tobacco abuse, hypertension, presented to the ER for increasing shortness of breath and hypertension found at his outpatient clinic appointment. Was transferred via EMS. Patient was also found to be diaphoretic and in respiratory distress. Chest x-rayis concerning for pulmonary edema and patient was hypertensive to approximately 250s/160s. He was intubated and started on nitro drip. Echocardiogram obtained showing EF of 10% with possible apical thrombus. Transferred safely to CCU. He then became hypotensive requiring initiation of Levophed. Underwent right and left heart cath and per documentation it appears the cardiac index and the wedge pressure were normal. Found to have severe ramus disease and moderate RCA disease but no culprit lesion so no intervention was performed. This morning he remains intubated and sedated on Levophed. Per nursing he is arousable but becomes extremely agitated with lighten sedation Review of Systems Unable to obtain as patient is on mechanical ventilation Physical Exam Vitals and Measurements T: 36.7 C (Axillary) TMIN: 36.2 C (Axillary) TMAX: 36.7 C (Axillary) HR: 52(Monitored) RR: 20(Total) RR: 20 BP: 80/53 BP: 109/55(Line) SpO2: 100% HT: 182.9 cm WT: 94.5 kg BMI: 28.25 Weight Dosing Weight: 94.5 kg (09/16/22) Dosing Weight: 94.5 kg (09/16/22) General: Sedated on mechanical ventilation Oral cavity: Endotracheally intubated Neck: No mass CVS: RRR, No murmur, Normal S1S2, no LL edema Respiratory: Coarse bilateral breath sounds, no wheezing, no crackles, no accessory muscle use Abdomen: Non-tender, no guarding, no rigidity, normal bowel sounds Ext: Cool to touch Neuro: Sedated Lab Results 09/17 04:47 WBC: 14.5 H Hgb: 12.7 L Hct: 38.3 L Platelet: 305 Neutrophil %: 79.0 H Glucose Level: 187 H Sodium Level: 139 Potassium Level: 3.7 BUN: 19.0 Creatinine Lvl (s): 1.92 H 09/16 22:53 Glucose Level: 116 H Sodium Level: 141 Potassium Level: 3.5 BUN: 16.0 Creatinine Lvl (s): 1.66 H 09/16 20:08 WBC: 17.9 H Hgb: 12.9 L Hct: 39.0 L Platelet: 310 Neutrophil %: 84.8 H Glucose Level: 240 H Sodium Level: 139 Potassium Level: 3.5 BUN: 16.0 Creatinine Lvl (s): 1.60 H 09/16 19:35 Glucose Level: 295 H Potassium Level: 3.5 09/16 15:23 WBC: 21.4 H Hgb: 14.9 Hct: 46.5 Platelet: 294 Neutrophil %: 91.2 H Glucose Level: 510 C Sodium Level: 132 L Potassium Level: 7.0 C BUN: 12.0 Creatinine Lvl (s): 1.31 09/16 14:24 WBC: 27.0 H Hgb: 15.2 Hct: 46.6 Platelet: 348 Neutrophil %: 88.1 H 09/16 13:39 Glucose Level: 514 C Sodium Level: 133 L Potassium Level: 5.5 H BUN: 12.0 Creatinine Lvl (s): 1.15 09/16 13:11 Hgb: 15.4 Hct: 47.0 Protime: 10.1 PT International Ratio: 0.9 EKG EC09/17/22: SINUS RHYTHM ANTERIOR Q WAVES, POSSIBLY DUE TO LVH LVH W/ REPOL ABNORMALITIES, POSSIBLE ISCHEMIA PROLONGED QT INTERVAL Electronic Signature: VANESSA KO MD 09/17/2022 09:17:59 Assessment/Plan Assessment Acute hypoxic and hypercapnic respiratory failure on mechanical ventilation Hypertensive emergency resulting in flash pulmonary edema Cardiogenic shock Apical thrombus Leukocytosis SHERITA Hyperglycemia resolved Hyperkalemia resolved Patient's initial presentation was hypertensive emergency and flash pulm edema. Patient's rapid improvement in his chest x-ray is consistent with flash pulmonary edema. Would not expect this rapid improvement with an infectious process. Patient's EF is clearly severely reduced on his echocardiogramimages. Unclear why the cardiac cath parameters were normal. He may need an LVEDP measured to confirm. Leukocytosis likely reactionary as he has remained afebrile Plan Continue mechanical ventilation with ventilator bundle. Oxygen requirements currently minimal on 40% FiO2 and 5 of PEEP. Will add as needed Versed and fentanyl and attempt to wean off continuous sedation. Once he is awake and following commands we will assess readiness for extubation with SBT ID has been consulted for infectious workup. Patient already on broad-spectrum antibiotics Vasopressor management per cardiology Recommend switching Lovenox to heparin by weight given worsening renal function SHERITA likely secondary to ischemic ATN due to hypotensive episode. Patient still making urine currently no indication for dialysis. Continue to monitor Glycemic protocol Pantoprazole for GI prophylaxis 35 minutes critical care time Problem List/Past Medical History Ongoing No qualifying data Historical No qualifying data Procedure/Surgical History No qualifying data available. Medications Inpatient acetaminophen, 650 mg= 2 tab(s), Oral, q4h, PRN atorvastatin, 80 mg= 1 tab(s), Oral, qHS clopidogrel, 75 mg= 1 tab(s), Oral, qDay Dextrose, 25 gram(s)= 50 mL, IV Push, AsDirected, PRN fentaNYL, 50 mcg= 1 mL, IV Push, q1h, PRN gabapentin, 300 mg= 1 cap(s), Oral, TID HumuLIN R, sliding scale insulin, Subcutaneous, q4h, PRN Insulin Regular for IV 100 unit(s) + NS Premix Diluent 100 mL Lokelma, 10 gram(s)= 1 packet(s), Oral, q8hr, PRN Lovenox, 90 mg= 0.9 mL, 1 mg/kg, Subcutaneous, q12h Norepinephrine for IV 8 mg [5 mcg/min] + NS PMX titrate 250 mL PARoxetine, 30 mg= 1 tab(s), Oral, qHS Peridex 0.12% oral rinse liquid, 15 mL, Swish & Spit, QID Propofol for IV 1,000 mg [10 mcg/kg/min] + IV Premix Diluent titrate 100 mL Puralube ophth solution, 1 drop(s), Eyes, both, q8h Puralube ophth solution, 1 drop(s), Eyes, both, AsDirected, PRN Puralube ophthalmic ointment, 1 smiley, Eyes, both, q8h Puralube ophthalmic ointment, 1 smiley, Eyes, both, AsDirected, PRN Sublimaze, 25 mcg= 0.5 mL, IV Push, q15min, PRN vancomycin IVPB, 1500 mg= 300 mL, 15 mg/kg, IV Piggyback, q12hr Versed, 2 mg= 2 mL, IV Push, q1h, PRN Zosyn, 4.5 gram(s)= 100 mL, IV Piggyback, q8h Home acetaminophen 325 mg oral tablet, 650 mg= 2 tab(s), Oral, q4h, PRN atorvastatin 80 mg oral tablet, 80 mg= 1 tab(s), Oral, qHS carvedilol 12.5 mg oral tablet, 12.5 mg= 1 tab(s), Oral, BID clopidogrel 75 mg oral tablet, 75 mg= 1 tab(s), Oral, qDay furosemide 40 mg oral tablet, 40 mg= 1 tab(s), Oral, BID gabapentin 300 mg oral capsule, 300 mg= 1 cap(s), Oral, TID glipiZIDE 5 mg oral tablet, 5 mg= 1 tab(s), Oral, BIDM lisinopril 20 mg oral tablet, 20 mg= 1 tab(s), Oral, qDay metFORMIN 500 mg oral tablet (IR), 1000 mg= 2 tab(s), Oral, BID PARoxetine 30 mg oral tablet, 30 mg= 1 tab(s), Oral, qHS spironolactone 25 mg oral tablet, 25 mg= 1 tab(s), Oral, qDay traZODone 50 mg oral tablet, 50 mg= 1 tab(s), Oral, qHS Allergies NKA Social History Smoking Status - 04/25/2015 Current every day smoker Immunizations No qualifying data available. Digitally Signed by DEXTER WILEY MD on 09/17/2022 12:27 PM [facility] [id number] Infectious disease Consult note Date of Service 09/17/2022 Reason for Consultation Leukocytosis Referring Physician Dr. Rosado History of Present Illness This is a 57-year-old male who initially presented as a transfer with concern of STEMI. STEMI was canceled as EKG was not consistent with STEMI. In the emergency room, the patient was noted to be hypertensive and tachycardic. He then developed hypotension approximately 4 hours after presentation. Echocardiogram with questionable LV thrombus. The patient was then started on Levophed. CBC in the emergency room was elevated at 27,000. Lactic acid was within normal limits.Due to hypotension and concern for cardiogenic shock, patient was emergently taken for left heart cath that demonstrated a normal cardiac index, normal pulmonary capillary wedge pressure and mild CAD with no culprit lesion. Nointervention was performed. ID consultation has been placed given the concern of leukocytosis. Review of Systems Not obtainable as patient is intubated Physical Exam Vitals and Measurements T: 36.7 C (Axillary) TMIN: 36.2 C (Axillary) TMAX: 36.7 C (Axillary) HR: 51(Monitored) RR: 20(Total) RR: 20 BP: 80/53 BP: 112/55(Line) SpO2: 100% HT: 182.9 cm WT: 94.5 kg BMI: 28.25 Weight Dosing Weight: 94.5 kg (09/16/22) Dosing Weight: 94.5 kg (09/16/22) Intubated and sedated; orogastric tube in place Right IJ in place HEENT: Normocephaly. No acute deficits Neck: Normal without lymphadenopathy Cardiac: Heart regular rhythm Lungs: Clear with basal crepitations Abdomen: Soft, non-tender, non-distended Extremities:Warm without clubbing, cyanosis or edema. Neurological: Could not assess for neurodeficits Skin: Warm, dry, intact. No rashes but mild chronic lower extremities venous stasis dermatitis Psychiatric: No abnormal behaviors Lab Results 09/17 04:47 WBC: 14.5 H Hgb: 12.7 L Hct: 38.3 L Platelet: 305 Neutrophil %: 79.0 H Glucose Level: 187 H Sodium Level: 139 Potassium Level: 3.7 BUN: 19.0 Creatinine Lvl (s): 1.92 H 09/16 22:53 Glucose Level: 116 H Sodium Level: 141 Potassium Level: 3.5 BUN: 16.0 Creatinine Lvl (s): 1.66 H 09/16 20:08 WBC: 17.9 H Hgb: 12.9 L Hct: 39.0 L Platelet: 310 Neutrophil %: 84.8 H Glucose Level: 240 H Sodium Level: 139 Potassium Level: 3.5 BUN: 16.0 Creatinine Lvl (s): 1.60 H 09/16 19:35 Glucose Level: 295 H Potassium Level: 3.5 09/16 15:23 WBC: 21.4 H Hgb: 14.9 Hct: 46.5 Platelet: 294 Neutrophil %: 91.2 H Glucose Level: 510 C Sodium Level: 132 L Potassium Level: 7.0 C BUN: 12.0 Creatinine Lvl (s): 1.31 09/16 14:24 WBC: 27.0 H Hgb: 15.2 Hct: 46.6 Platelet: 348 Neutrophil %: 88.1 H 09/16 13:39 Glucose Level: 514 C Sodium Level: 133 L Potassium Level: 5.5 H BUN: 12.0 Creatinine Lvl (s): 1.15 09/16 13:11 Hgb: 15.4 Hct: 47.0 Protime: 10.1 PT International Ratio: 0.9 Imaging Results and Diagnostics XR Chest 1 View Result Date: September 17, 2022 Verified By: GORDON KOEHLER MD CLINICAL STATEMENT: IMPRESSION: Near complete resolution of right mid lung opacification. No acutecardiopulmonary process by radiograph at this time. I have personally reviewed the images of this examination and agree with theresident's findings and interpretation. XR Chest 1 View Result Date: September 16, 2022 Verified By: MARY CAZARES MD CLINICAL STATEMENT: IMPRESSION: Interval placement of a right internal jugular central venous catheter withtip at the level of the upper SVC. No significant change in aeration of the right lung. XR Enteric Tube Placement Result Date: September 16, 2022 Verified By: BASSAM ROSALES MD CLINICAL STATEMENT: IMPRESSION: Masslike density projecting the right parahilar region. CT thorax withcontrast advised to exclude neoplasm. 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 Follow to resolution. Small pleural effusions not excluded XR Chest 1 View Result Date: September 16, 2022 Verified By: BASSAM ROSALES MD CLINICAL STATEMENT: IMPRESSION: Masslike density projecting in the right parahilar region. CT thorax withcontrast advised to exclude neoplasm. Mixed interstitial and alveolar disease is most prevalent in the rightparahilar and right lower lung. Correlate for signs of atypical pneumonia.Follow to resolution Endotracheal tube as above EKG EC09/17/22: SINUS RHYTHM ANTERIOR Q WAVES, POSSIBLY DUE TO LVH LVH W/ REPOL ABNORMALITIES, POSSIBLE ISCHEMIA PROLONGED QT INTERVAL Electronic Signature: VANESSA KO MD 09/17/2022 09:17:59 Assessment/Plan SOB - Shortness of breath Leukocytosis Questionable LV thrombus SHERITA Hypertensive emergency Hypoxic respiratory failure Systolic heart failure This is a 57-year-old male who initially presented as a transfer with concern of STEMI. STEMI was canceled as EKG was not consistent with STEMI. In the emergency room, the patient was noted to be hypertensive and tachycardic. He then developed hypotension approximately 4 hours after presentation. Echocardiogram with questionable LV thrombus. The patient was then started on Levophed. CBC in the emergency room was elevated at 27,000. Lactic acid was within normal limits.Due to hypotension and concern for cardiogenic shock, patient was emergently taken for left heart cath that demonstrated a normal cardiac index, normal pulmonary capillary wedge pressure and mild CAD with no culprit lesion. Nointervention was performed. ID consultation has been placed given the concern of leukocytosis. Patient remains intubated and sedated in CCU. He has remained afebrile the past 24 hours. White count has decreased to 14,500. Creatinine is trending up to 1.9. Nephrology on board. Lactic elevated yesterday at 2.9 now within normal limits. Blood cultures show no growth to date Urine antigens are negative Tracheal aspirate shows no growth We will obtain mycoplasma serology, respiratory PCR panel, HIV, RPR and acute hepatitis panel Will stop Zosyn given the SHERITA, will start meropenem instead Add doxycycline Will consult pharmacy to appropriately adjust vancomycin dosage, discussed with pharmacy Will await echocardiogram Will obtain ultrasound of the abdomen Thank you for this consultation, will follow clinical course and microdata I was present for Sylvia Simmons LPN , and personally directed, all components of the patient's complete evaluation and management documented by the scribe today. I have personally examined the patient and reviewed all diagnostic data. I have reviewed all of this documentation by the scribe. It documents the history obtained, examination performed, diagnostic testing results compiled by him/her,and discharge information. Problem List/Past Medical History Ongoing No qualifying data Historical No qualifying data Procedure/Surgical History No qualifying data available. Medications Inpatient acetaminophen, 650 mg= 2 tab(s), Oral, q4h, PRN atorvastatin, 80 mg= 1 tab(s), Oral, qHS clopidogrel, 75 mg= 1 tab(s), Oral, qDay Dextrose, 25 gram(s)= 50 mL, IV Push, AsDirected, PRN gabapentin, 300 mg= 1 cap(s), Oral, TID HumuLIN R, sliding scale insulin, Subcutaneous, q4h, PRN Insulin Regular for IV 100 unit(s) + NS Premix Diluent 100 mL Lokelma, 10 gram(s)= 1 packet(s), Oral, q8hr, PRN Lovenox, 90 mg= 0.9 mL, 1 mg/kg, Subcutaneous, q12h Norepinephrine for IV 8 mg [5 mcg/min] + NS PMX titrate 250 mL PARoxetine, 30 mg= 1 tab(s), Oral, qHS Peridex 0.12% oral rinse liquid, 15 mL, Swish & Spit, QID Propofol for IV 1,000 mg [10 mcg/kg/min] + IV Premix Diluent titrate 100 mL Puralube ophth solution, 1 drop(s), Eyes, both, q8h Puralube ophth solution, 1 drop(s), Eyes, both, AsDirected, PRN Puralube ophthalmic ointment, 1 smiley, Eyes, both, q8h Puralube ophthalmic ointment, 1 smiley, Eyes, both, AsDirected, PRN Sublimaze, 25 mcg= 0.5 mL, IV Push, q15min, PRN vancomycin IVPB, 1500 mg= 300 mL, 15 mg/kg, IV Piggyback, q12hr Zosyn, 4.5 gram(s)= 100 mL, IV Piggyback, q8h Home acetaminophen 325 mg oral tablet, 650 mg= 2 tab(s), Oral, q4h, PRN atorvastatin 80 mg oral tablet, 80 mg= 1 tab(s), Oral, qHS carvedilol 12.5 mg oral tablet, 12.5 mg= 1 tab(s), Oral, BID clopidogrel 75 mg oral tablet, 75 mg= 1 tab(s), Oral, qDay furosemide 40 mg oral tablet, 40 mg= 1 tab(s), Oral, BID gabapentin 300 mg oral capsule, 300 mg= 1 cap(s), Oral, TID glipiZIDE 5 mg oral tablet, 5 mg= 1 tab(s), Oral, BIDM lisinopril 20 mg oral tablet, 20 mg= 1 tab(s), Oral, qDay metFORMIN 500 mg oral tablet (IR), 1000 mg= 2 tab(s), Oral, BID PARoxetine 30 mg oral tablet, 30 mg= 1 tab(s), Oral, qHS spironolactone 25 mg oral tablet, 25 mg= 1 tab(s), Oral, qDay traZODone 50 mg oral tablet, 50 mg= 1 tab(s), Oral, qHS Allergies NKA Social History Smoking Status - 04/25/2015 Current every day smoker Immunizations No qualifying data available. Digitally Signed by Sylvia Simmons on 09/17/2022 12:12 PM Digitally Signed by CINDA FERRO BA, MD on 09/17/2022 05:39 PM [facility] [id number] Note ORIGINAL EXAMINATION: ONE XRAY VIEW OF THE CHEST09/17/2022 6:20 am COMPARISON: 09/16/2022 HISTORY: ORDERING SYSTEM PROVIDED HISTORY: Reason for Exam: shortness of breath FINDINGS: Similar position of the right internal jugular central venous catheter, endotracheal tube, and enteric tube. The cardiomediastinal silhouette is stable. There is no florid pulmonary vascular congestion. Interval improvement/near complete resolution of right mid lung interstitial and airspace opacification. No large pleural effusion. No pneumothorax. IMPRESSION: Near complete resolution of right mid lung opacification. No acute cardiopulmonary process by radiograph at this time. I have personally reviewed the images of this examination and agree with the resident's findings and interpretation. Interpreted by: Gordon Koehler MD Preliminary Report By: Tammy Degroot Electronically signed By Gordon Koehler MD Dictated Date: 09/17/2022 6:26:58 AM Prelim Date: 09/17/2022 6:29:09 AM Sign Date: 09/17/2022 7:50:15 AM Ordering Provider: [facility]08-09-2023 Note. MICRO - Microbiology PROCEDURE: Legionella Urine Ag [*1] SOURCE: Urine BODY SITE: COLLECTED DATE/TIME: 09/16/2022 19:12 EDT RECEIVED DATE/TIME: 09/16/2022 20:41 EDT START DATE/TIME: 09/16/2022 20:42 EDT FREE TEXT SOURCE: FINAL REPORTS Final Report [] Verified Date/Time/Personnel: 09/16/2022 21:16 EDT Presumptive negative for L. pneumophila serogroup 1 antigen in urine, suggesting no recent or current infection. Legionnaire's disease cannot be ruled out since other serogroups and species may also cause disease. Performing Locations *1: This test was performed at: [facility], [address] [place] [address], [id number] , [facility] ([place])09-16-2022 Note. MICRO - Microbiology PROCEDURE: Streptococcus Pneumoniae Urine Antig [^1 *1] SOURCE: Urine, Isaac Catheter BODY SITE: COLLECTED DATE/TIME: 09/16/2022 19:12 EDT RECEIVED DATE/TIME: 09/16/2022 20:41 EDT START DATE/TIME: 09/16/2022 20:41 EDT FREE TEXT SOURCE: FINAL REPORTS Final Report [] Verified Date/Time/Personnel: 09/16/2022 21:15 EDT Presumptive negative for pneumococcal pneumonia, suggesting no current or recent pneumococcal infection. Infection due to Strep pneumoniae cannot be ruled out since the antigen present in the sample may be below the detection limit of the test. Interpretive Data ^1: Streptococcus Pneumoniae Urine Antig This test has not been evaluated on patients taking antibiotics for greater than 24 hours or on patients who have recently completed an antibiotic regimen. The accuracy of this test has not been proven in young children. Performing Locations *1: This test was performed at: [facility], [address] [place] [address], [facility] , [facility] ([place])09-16-2022 NoteSINUS RHYTHM ANTERIOR Q WAVES, POSSIBLY DUE TO LVH LVH W/ REPOL ABNORMALITIES, POSSIBLE ISCHEMIA PROLONGED QT INTERVAL Electronic Signature: VANESSA KO MD 09/17/2022 09:17:59[facility] 08-09-2023 Note ORIGINAL EXAMINATION: ONE XRAY VIEW OF THE CHEST09/16/2022 6:29 pm CHEST ONE VIEW AP/PA COMPARISON: 09/16/2022 HISTORY: ORDERING SYSTEM PROVIDED HISTORY: Reason for Exam: central line FINDINGS: The endotracheal tube is approximately 3.9 cm above the level the david. The enteric tube courses below the diaphragm with tip and side port below the diaphragm. There is a right internal jugular central venous catheter with its tip at the level of the upper SVC. The cardiomediastinal contours are normal. There is central perihilar consolidation with mixed interstitial and alveolar opacities in the right mid lung. There is no pleural effusion or pneumothorax. No acute osseous abnormality. IMPRESSION: Interval placement of a right internal jugular central venous catheter with tip at the level of the upper SVC. No significant change in aeration of the right lung. Interpreted by: Mary Cazares MD Preliminary Report By: Mary Cazares MD Electronically signed By Mary Cazares MD Dictated Date: 09/16/2022 7:29:53 PM Prelim Date: 09/16/2022 7:32:44 PM Sign Date: 09/16/2022 7:32:44 PM Ordering Provider: MIGUELINA DIAZW[facility]SWOR[facility]TM[facility] HOSPITALjoniOhio State University Wexner Medical [id number] Procedure note Procedure Name Central Line placement Consent No consent. Emergent procedure. Patient only had one phone number in chart which had ansering machine after calling twice. Indication Need for Pressors Location Right IJ Technique Right IJ identified via US. Area was prepped with chlorhexidine solution. Time out was performed with two patient identifiers. Drape was placed over patients neck and area was numbed with lidocaine. Needle inserted into right IJ with blood return. Guide wire was then placed in wire followed by needle removal. Dilator was placed followed by insertion of triple lumen catheter. Each port was flushed. The central line was then sutured in. Post-Procedure Exam X-ray has been ordered. Complications none Estimated Blood Loss 5 cc Total Time 20 Digitally Signed by MIGUELINA BROWN MD on 09/16/2022 06:19 PM Digitally Signed by MIGUELINA BROWN MD on 09/16/2022 06:19 PM [facility] [id number] Procedure note Procedure Name A-Line placement Consent Emergent procedure. Patient with only home phone number and no answer. Location Left radial Pre-Procedure Exam Right artery was identified with ultrasound Procedural Sedation propofol and fentanyl Technique Left radial artery identified via ultrasound. Area was prepped with chlorhexidine solution. Needle was inserted into radial arery with blood return. Wire was then placed in needle followed by removalof needle. Then catheter was placed over wire followed by removal of wire. Catheter was then hookedup to pressuer with good waveform and pressures. Complications none Estimated Blood Loss 2 cc Total Time 5 minutes Digitally Signed by MIGUELINA BROWN MD on 09/16/2022 06:12 PM [facility] [id number] Note* Exam Date Time Procedure Performing Provider Status 09/16/22 6:10 PM Cardiac Catheterization -CV Auth (Verified) [facility] 08-09-2023 Procedure note Date of Service 09/16/2022 13:01:41 Procedure Note - Endotracheal Intubation: The patient was lying in the supine position. Preoxygenation via [id number] was provided. The patient had continuous cardiac as well as pulse oximetry monitoring during the procedure. Rapid sequence induction was provided by administration of 20 mg of Etomidate and 100 mg of rocuronium. A glidescope laryngoscope was used to directly visualize the vocal cords. A 8.0 mm endotracheal tube was visualized advancing between the cords to a level of 24 cm at the lip. The stylette was then removed and discarded. Tube placement was also noted by fogging in the tube, equal and bilateral breath sounds, no sounds over the epigastrium, and end-tidal colorimetric monitoring. The cuff was then inflated with 10ccs of air and the tube secured using a commercially available device. A good pulse oximetry wave form was seen on the monitor throughout the procedure. The patient tolerated the procedure well. A post-procedure chest x- ray is pending at the time. Froth visualized while using GlideScope. Likely secondary to pulmonary edema. Digitally Signed by BASSAM AGUILERA DO on 09/16/2022 01:02 PM [facility] [id number] Note* Exam Date Time Procedure Performing Provider Status 09/16/22 2:21 PM Echocardiogram, Adult - CV Auth (Verified) [facility] 08-09-2023 Evaluation + Plan noteExtracted from: Title:History and Physical Author:ERIN DYE MD Date:09/16/22 1. Acute CHF: Patient presentation is not consistent with STEMI at this time. EKG was reviewed. This shows sinus tachycardia versus possible SVT. Difficult to discern as heart rate is very fast. Will reassess once heart rate comes down. Clinically he is in acute CHF based on physical exam and clinical presentation. Will hold off on cardiac catheterization at this time. Patient may need an clinic evaluation down the line but we will optimize him and stabilize him first. Patient is being intubated in ER for airway protection. Will give him dose of Lasix. Patient's blood pressures in the 240s which is likely contributing to his clinical presentation as well. He is being started on nitroglycerin drip. Will reassess escalation. Will get a stat echo to assess ejection fraction. Will hold off on beta-blockers since he is very decompensated. Labs are pending including troponins. If clinical status changes, will consider cardiac catheterization/invasive evaluation based on labs, clinical presentation/echocardiogram. At this time we will hold off on cardiac catheterization. 2. Hypertensive emergency: Likely etiology of his acute CHF. Will control blood pressure. He is on a nitroglycerin drip given his pulm edema. Will consider escalating to nicardipine or nitroprusside based on his clinical response. Stat echo has been ordered. Plan discussed with ER physician. Will continue to follow. Patient to be admitted to cardiac intensive care unit for further care. [facility] 08-09-2023 History and physical note Date of Service 09/16/2022 Chief Complaint complains of increased sob over a few weeks, patient at CT and the sent him here via ems History of Present Illness This is a 57 gentleman history of diabetes mellitus who normally gets his care at the CT comes to the ER with complaints of shortness of breath. Patient was seen by me in ER as a STEMI alert was called. When I saw him in ER, he is acutely short of breath and unable to speak a full sentence without getting out of breath. Patient was essentially gasping for air. He denies any chest pain. Shortness of breath has been ongoing for a few days but got acutely worse this morning. No known prior cardiacpathology. Unable to obtain a more thorough history as this was a medical emergency and patient hadto be intubated urgently in the ER. Review of Systems Unable to obtain any further history except for the ones mentioned above. Physical Exam Vitals and Measurements T: 36.2 C (Axillary) HR: 138(Monitored) RR: 16 BP: 217/152 SpO2: 96% WT: 94.5 kg Weight Dosing Weight: 94.5 kg (09/16/22) HEAD AND NECK: Atraumatic, normocephalic. NECK: Supple. Unable to assess JVP CARDIAC: S1 S2 normal, tachycardic, no obvious murmurs RESPIRATORY: Bilateral extensive crackles, tachypneic ABDOMEN: Soft EXTREMITIES: Will pedal edema. Normal pedal pulses. CENTRAL NERVOUS SYSTEM: Awake and alert but very agitated due to shortness of breath PSYCHIATRIC -able to assess. Lab Results 09/16 13:11 Hgb: 15.4 Hct: 47.0 Imaging Results and Diagnostics Stat echo was ordered and we will follow-up EKG EC09/16/22: ECTOPIC ATRIAL TACHYCARDIA, UNIFOCAL LEFT VENTRICULAR HYPERTROPHY ANTERIOR INFARCT, ACUTE (LAD) PROLONGED QT INTERVAL Electronic Signature: ANITA ZAVALA MD 09/16/2022 12:51:46 Assessment/Plan 1. Acute CHF: Patient presentation is not consistent with STEMI at this time. EKG was reviewed. This shows sinus tachycardia versus possible SVT. Difficult to discern as heart rate is very fast. Willreassess once heart rate comes down. Clinically he is in acute CHF based on physical exam and clinical presentation. Will hold off on cardiac catheterization at this time. Patient may need an clinic evaluation down the line but we will optimize him and stabilize him first. Patient is being intubated in ER for airway protection. Will give him dose of Lasix. Patient's blood pressures in the 240s which is likely contributing to his clinical presentation as well. He is being started on nitroglycerin drip. Will reassess escalation. Will get a stat echo to assess ejection fraction. Will hold off onbeta-blockers since he is very decompensated. Labs are pending including troponins. If clinical status changes, will consider cardiac catheterization/invasive evaluation based on labs, clinical presen tation/echocardiogram. At this time we will hold off on cardiac catheterization. 2. Hypertensive emergency: Likely etiology of his acute CHF. Will control blood pressure. He is on a nitroglycerin drip given his pulm edema. Will consider escalating to nicardipine or nitroprusside based on his clinical response. Stat echo has been ordered. Plan discussed with ER physician. Will continue to follow. Patient to be admitted to cardiac intensive care unit for further care. Problem List/Past Medical History Ongoing No qualifying data Historical No qualifying data Procedure/Surgical History No qualifying data available. Medications Home Medications (2) Active glipiZIDE 5 mg, PO, Daily metformin 750 mg, PO, Daily Allergies NKA Social History Smoking Status - 04/25/2015 Current every day smoker Immunizations No qualifying data available. Code Status Code Status - Ordered -- 09/16/22 13:28:00 EDT, Full Code, Constant Order Digitally Signed by ERIN DYE MD on 09/16/2022 01:44 PM [id number] Note ORIGINAL EXAMINATION: ONE SUPINE XRAY VIEW(S) OF THE ABDOMEN09/16/2022 1:33 pm ABDOMEN 1 VIEW/KUB COMPARISON: None HISTORY: ORDERING SYSTEM PROVIDED HISTORY: Reason for Exam: og FINDINGS: Endotracheal tube projects 6.6 cm above the david. Enteric tube terminates at the gastric body level. Heart size is unchanged. Masslike density projects in the right parahilar region. 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 No visible pneumothorax. Small pleural effusions not excluded. IMPRESSION: Masslike density projecting the right parahilar region. CT thorax with contrast advised to exclude neoplasm. 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 Follow to resolution. Small pleural effusions not excluded Interpreted by: Bassam Rosales MD Preliminary Report By: Bassam Rosales MD Electronically signed By Bassam Rosales MD Dictated Date: 09/16/2022 1:34:50 PM Prelim Date: 09/16/2022 1:37:04 PM Sign Date: 09/16/2022 1:37:04 PM Ordering Provider: [facility]08-09-2023 Note ORIGINAL EXAMINATION: ONE XRAY VIEW OF THE CHEST09/16/2022 1:21 pm COMPARISON: None. HISTORY: ORDERING SYSTEM PROVIDED HISTORY: Reason for Exam: chest pain FINDINGS: The cardiomediastinal contours are normal. Endotracheal tube projects 4.7 cm above the david. Masslike density projecting in the right parahilar region is approximately 5.1 cm. There is mixed interstitial and alveolar disease in the central and lower right lung. There is likely patchy airspace disease in the left lung base. No pneumothorax. Small pleural effusions not excluded. No aggressive osseous lesions identified. IMPRESSION: Masslike density projecting in the right parahilar region. CT thorax with contrast advised to exclude neoplasm. 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 Correlate for signs of atypical pneumonia. Follow to resolution Endotracheal tube as above Interpreted by: Bassam Rosales MD Preliminary Report By: Bassam Rosales MD Electronically signed By Bassam Rosales MD Dictated Date: 09/16/2022 1:22:52 PM Prelim Date: 09/16/2022 1:25:21 PM Sign Date: 09/16/2022 1:25:21 PM Ordering Provider: [facility]08-09-2023 Procedure note Date of Service 09/16/2022 13:01:41 Procedure Note - Endotracheal Intubation: The patient was lying in the supine position. Preoxygenation via [id number] was provided. The patient had continuous cardiac as well as pulse oximetry monitoring during the procedure. Rapid sequence induction was provided by administration of 20 mg of Etomidate and 100 mg of rocuronium. A glidescope laryngoscope was used to directly visualize the vocal cords. A 8.0 mm endotracheal tube was visualized advancing between the cords to a level of 24 cm at the lip. The stylette was then removed and discarded. Tube placement was also noted by fogging in the tube, equal and bilateral breath sounds, no sounds over the epigastrium, and end-tidal colorimetric monitoring. The cuff was then inflated with 10ccs of air and the tube secured using a commercially available device. A good pulse oximetry wave form was seen on the monitor throughout the procedure. The patient tolerated the procedure well. A post-procedure chest x- ray is pending at the time. Froth visualized while using GlideScope. Likely secondary to pulmonary edema. Digitally Signed by BASSAM AGUILERA DO on 09/16/2022 01:02 PM [id number] NoteECTOPIC ATRIAL TACHYCARDIA, UNIFOCAL LEFT VENTRICULAR HYPERTROPHY ANTERIOR INFARCT, ACUTE (LAD) PROLONGED QT INTERVAL Electronic Signature: ANITA ZAVALA MD 09/16/2022 12:51:46[facility] 11-01-2022 [facility] Medical Records Department [address] [place] [id number] Discharge Summary 12/09/21 1321 MR#: [id number] Acct: [id number] Name: OLIVER CRAMER II Rep #: [id number] : 1965 56 From: Jesus Aguila MD PCP: Hospital,CT Status:DIS IN Location: [facility] [id number] Providers Date of Admission: 12/06/21 Date of Discharge: 12/09/21 Primary Care Physician: CT Hospital Consultations 12/06/21 17:59 Consult: Cardiology Routine Consulting Provider: Beto Kay Reason for Consult: NSTEMI EMERGENT Consult: No MD Notified: Yes Date Notified: 12/06/21 Time Notified: 16:25 Method of Notification: ED Physician Initiated Reason For Visit: CVA AND NSTEMI Diagnosis Discharge Diagnosis (1) Non-STEMI (non-ST elevated myocardial infarction): Status: Acute Code(s): I21.4 - Non-ST elevation (NSTEMI) myocardial infarction (2) Left ventricular systolic dysfunction (LVSD): Status: Acute Code(s): I51.9 - Heart disease, unspecified (3) CHF (congestive heart failure): Status: Acute Code(s): I50.9 - Heart failure, unspecified (4) Acute CVA (cerebrovascular accident): Status: Acute Code(s): I63.9 - Cerebral infarction, unspecified (5) HLD (hyperlipidemia): Status: Acute Code(s): E78.5 - Hyperlipidemia, unspecified (6) HTN (hypertension): Status: Chronic Code(s): I10 - Essential (primary) hypertension (7) Diabetes mellitus: Status: Acute Code(s): E11.9 - Type 2 diabetes mellitus without complications Medications at Discharge Home Medications fluticasone propionate 50 mcg/actuation nasal spray,suspension 2 spray intranasal DAILY allergies 07/24/20 gabapentin 300 mg capsule 300 mg PO TID neuropathy 07/24/20 metformin 500 mg tablet 1,000 mg PO BIDCM diabetes 07/24/20 paroxetine HCl 10 mg tablet 20 mg PO QHS depression 07/24/20 trazodone 50 mg tablet 50 mg PO QHS sleep 07/24/20 ascorbic acid (vitamin C) 500 mg tablet 500 mg PO BIDCM #60 tabs 07/26/20 carvedilol 6.25 mg tablet 6.25 mg PO BID #60 tabs 07/26/20 nitroglycerin 0.4 mg sublingual tablet 0.4 mg sublingual Q5M PRN Cardiac/Chest Pain #30 tabs 07/26/20 spironolactone 25 mg tablet 25 mg PO DAILY #30 tabs 07/26/20 lisinopril 10 mg tablet 20 mg PO DAILY blood pressure 12/06/21 aspirin 81 mg chewable tablet 81 mg PO BREAKFAST #30 tabs 12/09/21 atorvastatin 80 mg tablet 80 mg PO QHS #30 tabs 12/09/21 clopidogrel 75 mg tablet (Plavix) 75 mg PO DAILY #30 tabs 12/09/21 furosemide 40 mg tablet (Lasix) 40 mg PO BID #60 tabs 12/09/21 Hospital Course Summary of Care Provided Hospital Course: This is a 56-year-old question gentleman who was admitted through ER for dysarthria and language deficit.??? LKW not exactly clear as patient went to bed at night of 12/06 well but when he woke uphe could not speak out or could not find words to explain or express himself.??? Slowly was able to speak with pause and loss of fluency.??? Patient came to ED in afternoon and was admitted.??? CT head shows left frontal parietal ischemic infarction.??? Acute patient also had elevated troponin most likely type II demand ischemia as patient did not have chest pain or shortness of breath.??? Direct Care Worker was consulted in ED who recommended transfer to tertiary care with inpatient neurology and cardiology services.??? ED physician talked to [facility] neurologist on phone and decided to admit in PCU on IV heparin drip neuro protocol. His further hospital course as follows: 1.??? Acute left frontal ischemic infarct: Patient was admitted in PCU.??? Patient had headache in the morning for which CT head stat was done which did not show hemorrhage or hemorrhagic conversion.??? MRI brain shows left frontal infarct.??? CTA head and neck shows less than 50% ICA and cavernous art ladonna stenosis but no major hemodynamically significant stenosis or occlusion.??? IV heparin drip wasst opped as patient had headache to rule out hemorrhage and when it was ruled out it was resumed.??? With high risk of hemorrhagic conversion, patient is being transferred to [facility] in hospitalist service as mentioned below.??? I talked to the patient's significant other/ over the phone.??? Initially patien t did not want to go for [place] but agreed that sooner, timely transfer is important for the care rather than waiting here for several days to transfer to [facility].??? Patient came to [facility] jessica and convinced the patient. 12/08: Patient is still did not get bed in [facility].??? [facility] neurology consult for opinion/recommendation regarding continuation of IV heparin drip/changing to oral anticoagulant.??? Continue PT OT and speech evaluation and treatment. 12/09: As patient had obvious left frontal ischemic infarct therefore patient is discharged on dual antiplatelet agent at least for 21 days and then aspirin to continue. High intensity statin. No anticoagulant re (more content not included)...[facility] Author Meng Avelar [facility] Note Date/Time August 28, 2024 6:19 pm [facility] Medical Records Department [address] [place] [address] Consultation 08/28/241806 MR#: [id number] Acct: [id number] Name: OLIVER CRAMER II Rep #:[id number] : 1965 59 From: Meng Avelar DPM PCP: [facility] Status:[facility] [place]: [place] [address] Assessment & Plan Assessment/Plan (1) Cellulitis of right lower limb: (2) Gangrene, not elsewhere classified: (3) Acute osteomyelitis of toe of right foot: (4) Diabetes mellitus with diabetic polyneuropathy: (5) Other specified peripheral vascular diseases: PLAN: Plan Evaluation performed. Reviewed diagnostic findings. WBC elevated, ESR and CRP elevated, right foot xrays concerning for osteomyelitis right 1st toe, and thereis noted gas in the tissues of the right 1st toe. Clinically there is dusky right 1st toe with gangrene developing and there is significant cellulitis to the foot. Reviewed findings, conditions and treatment options with patient. Given the findings especially with gas - debridement of all nonviable, infected and necrotic soft tissue and bone with 1st toe amputation was discussed with patienttoday. There is concern that if this is not completed this could spread, and it is uncertain how quick it could spread. Reviewed this with him in detail, and heelected to proceed with this procedure at this time. Patient has been NPO and will plan to proceed with this procedure at this time. Blood cultures have been obtained and pending. Patient will be admitted to hospital medicine. HPI Consult Data Date of Consult: 08/28/24 HPI Narrative Reason for Consultation: Right 1st toe infection HPI Narrative: OLIVER CRAMER, is a 59 M who presents with right 1st toe and foot infection. Herelates he thinks it started last week, denies any known cause, but relates it has been worsening every day and now toe is not looking good, there is significant redness and swelling to his entire foot, infection appears to be spreading. He relates it started to drain today. He denies pain but seems like there is neuropathy. He has history of diabetes. Right foot xrays were obtained and there is suspicion for osteomyelitis and there was noted to be gas in the 1st toe soft tissues. I was consulted by the ER for further evaluation. Plan is for patient to be admitted to the hospital medicine team. [facility] Medical History (Updated 08/28/24 @ 18:17 by Lurdes Phillips) Redness of skin Rash Diabetes Easy bruising Stroke/cerebrovascular accident Diabetes mellitus HTN (hypertension) HLD (hyperlipidemia) CHF (congestive heart failure) Left ventricular systolic dysfunction (LVSD) Non-STEMI (non-ST elevated myocardial infarction) Acute CVA (cerebrovascular accident) Congestive heart failure Diabetes mellitus, type 2 Dyslipidemia Depression Anxiety Smoker Hypertension Home Medications ?Medication ?Instructions ?Recorded ?Last Taken ?Type fluticasone propionate 50 2 spray intranasal DAILY all ergies 07/24/20 08/28/24 History mcg/actuation nasal spray,suspension gabapentin 300 mg capsule 300 mg PO TID neuropathy 08/28/24 History metformin 500 mg tablet 1,000 mg PO BIDCM diabetes 0 07/24/20 08/28/24 History trazodone 50 mg tablet 50 mg PO QHS sleep 07/24/20 08/27/24 History carvedilol 6.25 mg tablet 6.25 mg PO BID #60 tabs 07/0908/28/24 Rx nitroglycerin 0.4 mg sublingual 0.4 mg sublingual Q5M PRN 07/26/20 Unknown Rx tablet Cardiac/Chest Pain #30 tabs spironolactone 25 mg tablet 25 mg PO DAILY #30 tabs 08/28/24 Rx aspirin 81 mg chewable tablet 81 mg PO BREAKFAST #30 t abs 12/09/21 08/28/24 Rx atorvastatin 80 mg tablet 80 mg PO QHS #30 tabs 08/27/24 Rx ciclopirox 8 % topical solution 1 applic topical DAILY 08/28/24 08/28/24 History (Ciclodan) empagliflozin 25 mg tablet 25 mg PO DAILY 08/28/24 History (Jardiance) hydrophilic cream 1 applic topical TID PRN dry skin 08/28/24 08/28/24 History omeprazole 20 mg capsule,delayed 20 mg PO DAILY 08/28/24 History release paroxetine HCl 30 mg tablet 30 mg PO DAILY 08/28/24 History sacubitril 97 mg-valsartan 103 mg 1 tab PO BID 5 08/28/24 History tablet (Entresto) Allergy/AdvReac Type Severity Reaction Status Date / Time No Known Allergies Allergy Verified 08/28/24 15:37 Family History (Updated 12/06/21 @ 17:[address] Kavon Mandel MD) Other Diabetes Heart disease Hypertension Social History Smoking Status: Current every day smoker tobacco type: cigarettes Physical Exam Const alert, oriented x3 and no apparent distress Constitutional Narrative: Right 1st toe significantly dusky and ischemic to most of the toe, there is someserous drainage from the proximal aspect of the toe, it is cool to touch, there is significant cellulitis to the right foot with edema, and there are patches ofblistering to the dorsal 1st metatarsal. DP and PT pulses strong on handheld ultrasound doppler, right foot in ER at this time, CFT < 3 seconds to 2,3,4,5 toes right foot. No other areas of breakdown or duskiness to rest of right foot or to left foot. No open lesions, no cellulitis, no edema left foot. No POP or pain on ROM to foot or ankle bilateral. Sensation is diminished bilateral foot. There is some chronic contracture of all toes bilateral. Lab / Micro Data 08/28/24 16:05 08/28/24 16:05 Labs: Laboratory Results - last 24 hr 08/28/24 16:05: WBC 11.9 H, RBC 3.61 L, Hgb 10.4 L, Hct 31.1 L, MCV 86.1, MCH 28.8, MCHC 33.4, RDW Std Deviation 39.1, RDW Coeff of Prudence 12.5, Plt Count 357, MPV 9.9, Immature Gran % (Auto) 0.500, Neut % (Auto) 77.5 H, Lymph % (Auto) 13.4L, [place] % (Auto) 7.6, Eos % (Auto) 0.6, Baso % (Auto) 0.4, Absolute Neuts (auto)9.2 H, Absolute Lymphs (auto) 1.59, Nucleated RBC % 0, ESR 52 H, Sodium 134, Potassium 4.0, Chloride 98, Carbon Dioxide 21.8, Anion Gap 15, BUN 24 H, Creatinine 1.93 H, Estim Creat Clear Calc 50.47, Est GFR (MDRD) Non-Af 40 L, BUN/Creatinine Ratio 12.5, Glucose 201 H, Lactic Acid 1.3, Calcium 9.0, C-React Prot Ext Range 155.00 H Imaging Radiology Impression Foot X-Ray 08/28/24 16:32 IMPRESSION: 1. Soft tissue swelling and gas involving the 1st toe. 2. Ill-defined and irregular cortical margins along the anteromedial aspect of the right 1st distal phalanx, suspicious for associated osteomyelitis. Reading Location: [id number] 08/28/241818 <Electronically signed by Meng Avelar DPM> Cosigner Signature (if applicable): CC: [facility]~ Signed ADDENDUM by MAIA Avelar on 08/28/24 at 181 Addendum Discussed with anesthesia team and also hospitalist. 08/28/241818<Electronically signed by Meng Avelar DPM> Cosigner Signature (if applicable): cc: [facility] ~* Signed [facility] Work Phone: Evaluation + Plan note Future Appointments Appointment Date:03/02/2023 10:00:00 AM Scheduled Provider: Location:RAD Appointment Type:CV Procedure - AOH Echo [facility] Evaluation + Plan note Future Appointments Appointment Date:05/13/2023 01:45:00 PM Scheduled Provider: Location:[facility] Appointment Type:CV OV CHF [facility] Evaluation note* Diagnosis Onset Date Resolution Status Acute CVA (cerebrovascular accident) acute Acute electrocardiogram changes acute Elevated troponin acute Non-STEMI (non-ST elevated myocardial infarction) acute [facility] Work Phone: Evaluation note* Diagnosis Onset Date Resolution Status Acute CVA (cerebrovascular accident) acute Acute electrocardiogram changes acute CHF (congestive heart failure) acute Diabetes mellitus acute Elevated troponin acute HLD (hyperlipidemia) acute Left ventricular systolic dysfunction (LVSD) acute Non-STEMI (non-ST elevated myocardial infarction) acute HTN (hypertension) chronic [facility] Work Phone: Evaluation note* Diagnosis Onset Date Resolution Status Admit Date Acute osteomyelitis of toe o f right foot acute August 28, 2024 6:20pm Cellulitis of right lower limb acute August 28, 2024 6:20pm Diabetes mellitus with diabe tic polyneuropathy acute August 28, 2024 6:20pm Gangrene, not elsewhere classified acute August 28, 2024 6:20pm Other specified peripheral vascular diseases acute August 28 6:20pm [facility] Work Phone: Hospital course Narrative No data available for this section [facility] Hospital Discharge instructions No data available for this section [facility] Progress note No data available for this section [facility] Reason for referral (narrative)No reason for referral information availableWUC Health Work Phone: Summary Purpose Family History Relationship Condition Age at Onset Recorded Date/T ben Not Specified Diabetes mellitus Unknown Cardiac disease Unknown Hypertension Unknown Advance Directives Advance Directive Response Recorded Date/ Time Living Will No December 06 2:04pm Power of Ruffler No December 06, 2021 2:04pm Advance Directive Response Recorded Date/ Time Living Will No December 06 6:17pm Power of Ruffler No December 06, 2021 6:17pm Advance Directive Response Recorded Date/ Time Do you have a Healthcare Power of Ruffler? No August 28, 2024 4:43pm Chief Complaint and Reason for Visit Chief Complaint CVA AND NSTEMI CVA AND NSTEMI Reason for Visit Acute CVA (cerebrova scular accident) Acute electrocardiogram changes Elevated troponin Non-STEMI (non-ST elevated myocardial infarction) Chief Complaint CVA AND NSTEMI CVA AND NSTEMI CVA AND NSTEMI CVA AND NSTEMI CVA AND NSTEMI CVA AND NSTEMI CVA AND NSTEMI CVA AND NSTEMI Reason for Visit Acute CVA (cerebrova scular accident) Acute electrocardiogram changes CHF (congestive heart failure) Diabetes mellitus Elevated troponin HLD (hyperlipidemia) Left ventricular systolic dysfunction (LVSD) Non-STEMI (non-ST elevated myocardial infarction) HTN (hypertension) Chief Complaint Admit Date lower ext August 28, 2024 6:20 pm Reason for Visit Admit Date Acute osteomyelitis of toe of right foot August 28, 2024 6:20pm Cellulitis of right lower limb August 6:20pm Diabetes mellitus with diabetic polyneur opathy August 28, 2024 6:20pm Gangrene, not elsewhere classified August 28, 2024 6:20pm Other specified peripheral vascular dise ases August 28, 2024 6:20pm Additional Source Comments (unrecognized sect ion and content) No Status Records FoundNo Status Records FoundNo Status Records FoundNo Status Records Found INFORMATION SOURCE (unrecogn ized section and content) DATE CREATED AUTHOR 07/27/2017 [facility] DATE CREATED AUTHOR AUTHOR'S ORGANIZ ATION 12/09/2021 [facility] DATE CREATED AUTHOR AUTHOR'S ORGANIZ ATION 01/05/2022 [facility] DATE CREATED AUTHOR AUTHOR'S ORGANIZ ATION 05/13/2023 [facility] ([place]) Patient Care team informatio n (unrecognized section and content) Team Status: Active Member Role/Relationship Status Dates [facility] Primary Care Provider Active Team Status: Active Member Role/Relationship Status Dates [facility] Primary Care Provider Active Start: August 28, 2024 Dr. Johnnie Vines DO Emergency Provider Activ e Start: August 28, 2024 Dr. Meng Avelar DPM Attending Provider Active Start: August 28, 2024 Dr. Cosme Reina MD Other Provider Active Start : August 28, 2024 Dr. Alecia Pérez MD Admit Provider Active Star t: August 28, 2024 Goals (unrecognized section and content) Goals may be documented in a n alternate section FOR RECORDS PERTAINING TO PATIENTS WHO ARE OR HAVE BEEN ENROLLED IN A CHEMICAL DEPENDENCY/SUBSTANCEABUSE PROGRAM, SOME INFORMATION MAY BE OMITTED. This clinical summary was aggregated from multiple sources. Caution should be exercised in using it in the provision of clinical care. This summary normalizes information from multiple sources, and as a consequence, information in this document may materially change the coding, format and clinical context of patient data. In addition, data may be omitted in some cases. CLINICAL DECISIONS SHOULD BE BASED ON THE PRIMARY CLINICAL RECORDS. [facility] provides no warranty or guarantee of the accuracy or completeness of information in this document.
[2024-08-28] MEDS: 0.9% Normal Saline (250mL Bag) 250 ML 15 ML IV (21:34)
[2024-08-28] MEDS: Clindamycin 900 MG/50 ML BAG 75 MG IV (21:37)
[2024-08-28] MEDS: Piperacil/Tazobactam 3.375 GM in 0.9% Normal Saline (50mL MB+) 50 ML IV (21:50)
--- OUTSIDE RECORDS SUMMARY | 2024-08-28 23:09 | XMS RPT_ITS | CCD ---
Author Organization [facility] Care Team Providers Care Basket Sorter Name Role Phone [place] Primary Care Provider UnavailDr. Beto Mackay Emergency Provider Dr. Kavon Mandel Admit Provider Dr. Kavon Mandel Attending Provider Dr. Kavon Mandel Other Provider JESUS AGUILA Referring Unavailable RABIA BELTRE Attending Unavailable RABIA BELTRE Admitting Unavailable Dr. Beto Kay Attending Provider Dr. Beto Kay Other Provider Dr. Jesus Aguila Attending Provider Dr. Jesus Aguila Other Provider Dr. Wilfredo Chapman Attending Provider [facility], [place] Primary Care Unavailable Wilfredo Chapman Attending Unavailable Beto Kay Consulting [facility] [facility] Primary [facility] Unavailable Beto Kay Attending Unavailable Kavon Mandel Admitting Unavailable Kavon Mandel Consulting Unavailable Jesus Aguila Consulting Unavailable Jesus Aguila Attending Unavailable Kavon Mandel Attending Unavailable Jesus Aguila Attending Unavailable Beto Kay Consulting Unavailable Kavon Mandel Admitting [facility] [facility] Primary Care Unavailable Kavon Mandel Consulting [place] [facility] Un[place] Beto Kay Attending [place]available [place] Primary Care Physician [phone] [place] Primary Care Unavailable VANESSA KO MD [...] Unavailable KARRIE URBAN, NANCIE Kaur Consulting Unavailable [place] Primary Care Unavailable VANESSA KO MD Attending Unavailable [facility] Primary Care Unavailable VANESSA KO MD Attending Unavailable [facility] Primary Care Unavailable DANIEL CHANDLER Attending [place], [place] Primary Care Provider [facility] Mohinder RESTREPO, Dr. Blair Emergency Provider Rosio CARVALHO, Dr. Fan Attending Provider [phone] Nuno URBAN, Dr. Aguiar Other Provider [phone] Beto URBAN, Dr. Alston Admit Provider Medications Current Medications Medication Drug Class(es) Dates [...] BID, # 60 tab(s), 3 Refill(s), Pharmacy: [facility]/pharmacy #[id number], 182.9, cm, 09/16/22 20:27:00 EDT, Height, 94.5, kg, 09/16/22 20:27:00 EDT, Dosing Weight Start Date: 09/20/22 Status: Ordered aspirin 81 mg delayed release oral tablet (4 sources) Platelet Aggregation Inhibitor, Nonsteroidal Anti-inflammatory Drug Start: 11-23-2022 aspirin 81 mg oral delayed release tablet Dose : 81 mg = 1 tab(s), Oral, Daily, # 30 tab(s), 11 Refill(s), Pharmacy: [facility], 190.5, cm, 11/23/22 11:19:00 EDT, [...] qHS, # 30 tab(s), 1 Refill(s), Pharmacy: [facility]/pharmacy #[id number], 182.9, cm, 09/16/22 20:27:00 EDT, Height, kg, [...] BID, # 60 tab(s), 4 Refill(s), Pharmacy: [facility], 190.5, cm, 12/23/22 8:59:00 EST, Height, kg, 12/23/22 8:59:00 EST, Dosing Weight Start Date: 04/15/23 Status: Ordered Start: 12-23-2022 carvedilol 12. 5 mg oral tablet Dose : 12.5 mg = 1 tab(s), Oral, BID, # 60 tab(s), 7 Refill(s), Pharmacy: [facility], 190.5, cm, 12/23/22 8:59:00 EST, [...] qDay, # 30 tab(s), 1 Refill(s), Pharmacy: [facility]/pharmacy #[id number], 182.9, cm, 09/16/22 20:27:00 EDT, Height, kg, [...] qAM, # 30 tab(s), 8 Refill(s), Pharmacy: [facility], 190.5, cm, 12/23/22 8:59:00 EST, Height, kg, 12/23/22 8:59:00 EST, Dosing Weight Start Date: 12/23/22 Status: Ordered Start: 09-20-2022 Jardiance 10 m g oral tablet Dose : 10 mg = 1 tab(s), Oral, qAM, # 30 tab(s), 1 Refill(s), Pharmacy: [facility]/pharmacy #[id number], 182.9, cm, 09/16/22 20:27:00 EDT, Height, kg, [...] Start: 07-24-2020 Fluticasone Pr opionate 50 mcg/actuation [place],Suspension Active 2 NMA INTRANASAL DAILY July 24, [...] supper, # 30 tab(s), 6 Refill(s), Pharmacy: [facility], 182.9, cm, 09/16/22 20:27:00 EDT, [...] BID, # 60 tab(s), 6 Refill(s), Pharmacy: [facility], 190.5, cm, 12/23/22 8:59:00 EST, Height, kg, 12/23/22 8:59:00 EST, Dosing Weight Start Date: 02/17/23 Status: Ordered Start: 09-20-2022 take 1 tablet by connie twice daily Entresto 49 mg-51 mg oral tablet Dose = 1 tab(s), Oral, BID, # 60 tab(s), 3 Refill(s), Pharmacy: [facility]/pharmacy #[id number], 182.9, cm, 09/16/22 20:27:00 EDT, Height, kg, 09/16/22 20:27:00 EDT, Dosing Weight Start Date: 09/20/22 Status: Ordered spironolactone 25 mg oral tablet (6 sources) Aldosterone Antagonist Start: 12-23-2022 spironolactone 25 mg oral tablet Dose : 25 mg = 1 tab(s), Oral, qDay, # 90 tab(s), 7 Refill(s), Pharmacy: [facility], 190.5, cm, 12/23/22 8:59:00 EST, Height, kg, 12/23/22 8:59:00 EST, Dosing Weight Start Date: 12/23/22 Status: Ordered Start: 07-26-2020 spironolactone 25 mg oral tablet Dose : 25 mg = 1 tab(s), Oral, qDay, # 30 tab(s), 1 Refill(s), Pharmacy: [facility]/pharmacy #[id number], 182.9, cm, 09/16/22 20:27:00 EDT, Height, kg, [...] Auto (Unsp spec) [#/Vol] 1.59 10*3/uL 0.83-4.51 [facility] Absolute neutrophil countOrd ered By: Johnnie Vines on 08-28-2024 Neutrophils (Bld) [#/Vol] 9.2 10*3/uL High 2.0-7.7 [facility] Anion gap in Serum or Plasma Ordered By: Johnnie Vines on 08-28-2024 Anion gap [Moles/Vol] 15 mmol/L 5-[address] [facility] Automated lymphocyte count a s percentage of total leukocytesOrdered By: Johnnie Vines on 08-28-2024 Lymphocytes/100 WBC Auto (Unsp spec) 13.4 % Low 19-41 [facility] BUN/creatinine ratioOrdered By: Johnnie Vines on 08-28-2024 Urea nitrogen/Creatinine [Mass ratio] 12.5 mg/mg 10-20 [facility] Basophil percentageOrdered B y: Johnnie Vines on 08-28-2024 Basophils/100 WBC (Bld) 0.4 % 0-1 [facility] Carbon dioxide, total [Moles /volume] in Central venous bloodOrdered By: Johnnie Vines on 08-28-2024 CO2 [Moles/Vol] 21.8 mmol/L 21.0-32.0 [facility] Chloride assayOrdered By: Jorge Vines on 08-28-2024 Chloride [Moles/Vol] 98 mmol/L 98-108 [facility] Eosinophil percentageOrdered By: Johnnie Vines on 08-28-2024 Eosinophils/100 WBC (Bld) 0.6 % 0-5 [facility] Erythrocyte distribution wid th ratioOrdered By: Johnnie Vines on 08-28-2024 Erythrocyte distribution width (RBC) [Ratio] 12.5 % 11.6-14.6 [facility] Erythrocyte distribution wid th standard deviationOrdered By: Johnnie Soliman on 08-28-2024 Erythrocyte distribution width (RBC) [Ratio] 39.1 fl 35.1-43.9 [facility] Erythrocyte sedimentation ra teOrdered By: Johnnie Vines on 08-28-2024 ESR (Bld) [Velocity] 52 mm/h High 0-20 [facility] Glomerular filtration rate ( GFR) estimation/1.73 sq m using serum, plasma, or whole bOrdered By: Johnnie Vines on 08-28-2024 GFR/1.73 sq M.predicted among non-blacks MDRD (S/P/Bld) [Vol rate/Area] 40 mL/min/{1.73_m2} Low >60 [facility] Comment on above: mL/min/1.73m2 CKD-EP I Creatinine Equation (2020) Hematocrit Auto (Bld) [Volum e fraction]Ordered By: Johnnie Vines on 08-28-2024 Hematocrit (Bld) [Volume fraction] 31.1 % Low 40-54 [facility] Hemoglobin measurementOrdere d By: Johnnie Vines on 08-28-2024 Hemoglobin (Bld) [Mass/Vol] 10.4 g/dL Low 13.0-16.5 [facility] Immature granulocytes/100 WB C Auto (Bld)Ordered By: Johnnie Vines on 08-28-2024 Immature granulocytes/100 WBC (Bld) 0.500 % 0.0-0.9 [facility] Comment on above: IG% - Immature Granu locytes (promyelocytes, myelocytes and metamyelocytes) > 1% indicates that a LEFT SHIFT is Present. Lactic acid measurementOrder ed By: Johnnie Vines on 08-28-2024 Lactate [Moles/Vol] 1.3 mmol/L 0.0-2.0 [facility] MCV (mean corpuscular volume ) determinationOrdered By: Johnnie Vines on 08-28-2024 MCV (RBC) [Entitic vol] 86.1 fL 80-94 [facility] Mean corpuscular hemoglobin (MCH) determinationOrdered By: Johnnie Vines on 08-28-2024 MCH (RBC) [Entitic mass] 28.8 pg 27.0-32.0 [facility] Mean corpuscular hemoglobin concentration (MCHC) determinationOrdered By: Johnnie Vines on 08-28-2024 MCHC (RBC) [Mass/Vol] 33.4 g/dL 32-[address] [facility] Mean platelet volume determi nationOrdered By: Johnnie Vines on 08-28-2024 Platelet mean volume (Bld) [Entitic vol] 9.9 fL 6.2-12.0 [facility] Monocyte percentageOrdered B y: Johnnie Vines on 08-28-2024 Monocytes/100 WBC (Bld) 7.6 % 0-10 [facility] Neutrophil percentageOrdered By: Johnnie Vines on 08-28-2024 Neutrophils/100 WBC (Bld) 77.5 % High 47-70 [facility] Nucleated red blood cell per centageOrdered By: Johnnie Vines on 08-28-2024 Nucleated RBC/100 WBC (Bld) [Ratio] 0 % 0-5 [facility] Platelet countOrdered By: Jorge Vines on 08-28-2024 Platelets (Bld) [#/Vol] 357 10*3/uL 150-450 [facility] Potassium measurement (mass/ volume)Ordered By: Johnnie Vines on 08-28-2024 Potassium (Unsp spec) [Mass/Vol] 4.0 mmol/L 3.3-5.1 [facility] Comment on above: Hemolysis present, R esults could be affected. RBC Auto (Bld) [#/Vol]Ordere d By: Johnnie Vines on 08-28-2024 RBC (Bld) [#/Vol] 3.61 10*6/uL Low 4.6-6.2 [facility] Serum creatinine measurement (mass/volume)Ordered By: Johnnie Vines on 08-28-2024 Creatinine [Mass/Vol] 1.93 mg/dL High 0.70-1.[address] [facility] Serum glucose measurement (m ass/volume)Ordered By: Johnnie Vines on 08-28-2024 Glucose [Mass/Vol] 201 mg/dL High 70-99 [facility] Serum or plasma C reactive p rotein measurement (mass/volume)Ordered By: Johnnie Vines on 08-28-2024 CRP [Mass/Vol] 155.00 mg/L High 0.0-3.0 [facility] Serum or plasma calcium enmanuel urement (mass/volume)Ordered By: Johnnie Soliman on 08-28-2024 Calcium [Mass/Vol] 9.0 mg/dL 7.6-11.0 [facility] Serum or plasma urea nitroge n measurement (mass/volume)Ordered By: Johnnie CallesLong on 08-28-2024 Urea nitrogen [Mass/Vol] 24 mg/dL High 4-19 [facility] Sodium levelOrdered By: Van wylie Mohinder on 08-28-2024 Sodium [Moles/Vol] 134 mmol/L 133-145 [facility] White blood cell (WBC) count Ordered By: Johnniekvng HdezJourdan on 08-28-2024 WBC (Bld) [#/Vol] 11.9 10*3/uL High 4.4-11.0 [facility] MYCOon 09-21-2022 Mycoplasma IgG Positive Normal [facility] ([place]) Comment on above: Result Comment: INTE RPRETATION OF MYCOPLASMA IgG BY EIA: Negative: No detectable M. pneumoniae IgG antibody. Positive: Mycoplasma pneumoniae IgG antibody Detected. Equivocal: Equivocal for IgG antibodies to Mycoplasma pneumoniae. Suggest repeat testing in 10-14 days. Performed By: #### H FP, CBC, ANEU, ADIFF #### [address] [address] .Auto Diffon 09-20-2022 Basophil, Absolute 0.1 10 3/mcL Normal 0.0-0.3 [facility] ([place] Comment on above: Performed By: #### M G, GFR, BMP #### [address] [address] Basophils/100 WBC (Bld) 0.9 % Normal 0.0-2.5 [facility] ([place]) Comment on above: Performed By: #### M G, GFR, BMP #### [address] [address] Eosinophil, Absolute 0.2 10 3/mcL Normal 0.0-0.7 [facility] ([place] Comment on above: Performed By: #### M G, GFR, BMP #### [address] [address] Eosinophils/100 WBC (Bld) 2.3 % Normal 0.0-6.0 [facility] ([place]) Comment on above: Performed By: #### Diamond G, GFR, BMP #### [address] [address] Lymphocyte, Absolute 0.9 10 3/mcL Normal 0.9-4.3 [facility] ([place]) Comment on above: Performed By: #### Diamond G, GFR, BMP #### [address] [address] Lymphocytes/100 WBC (Bld) 12.7 % Low 20.0-40.0 [facility] ([place]) Comment on above: Performed By: #### Diamond G, GFR, BMP #### [address] [address] Monocyte, Absolute 0.7 10 3/mcL Normal 0.1-1.4 [facility] ([place]) Comment on above: Performed By: #### Diamond G, GFR, BMP #### [address] [address] Monocytes/100 WBC (Bld) 10.1 % Normal 2.0-13.0 [facility] ([place]) Comment on above: Performed By: #### Diamond G, GFR, BMP #### [address] [address] Neutrophils/100 WBC (Bld) 74.0 % Normal 50.0-75.0 [facility] ([place]) Comment on above: Performed By: #### Diamond G, GFR, BMP #### [address] [address] .GFRon 09-20-2022 GFR >60 Normal [facility] ([place]) Comment on above: Result Comment: GFR [...] By: #### Diamond Ortega, GFR, BMP #### [address] [address] GFR Non- >60 Normal [facility] ([place]) Comment on above: Result Comment: GFR Population [...] By: #### M Jordan, GFR, BMP #### [address] [address] .NEUABSon 09-20-2022 Neutrophil, Absolute 5.3 10 3/mcL Normal 2.3-8.1 [facility] ([place] Comment on above: Performed By: #### M Jordan, GFR, BMP #### [address] [address] APTTon 09-20-2022 aPTT Coag (Bld) [Time] 52.4 s High 25.0-35.0 [facility] ([place]) Comment on above: Result Comment: For Heparin anticoagulation therapy, the recommended therapeutic range is: 54-77 seconds (APTT Correlation with Anti-Xa therapeutic range of 0.3-0.7 units/ml). PLEASE REFERENCE THE PHARMACY PROTOCOL FOR DOSING. Performed By: #### A PTT #### [address] [address] Heparin dose (APTT) Heparin IV Normal [facility] ([place]) Comment on above: Performed By: #### A PTT #### [place] [id number] aPTT Coag (Bld) [Time] 43.4 s High 25.0-35.0 [facility] ([place] Comment on above: Result Comment: For Heparin anticoagulation therapy, the recommended therapeutic range is: 54-77 seconds (APTT Correlation with Anti-Xa therapeutic range of 0.3-0.7 units/ml). PLEASE REFERENCE THE PHARMACY PROTOCOL FOR DOSING. Performed By: #### M G, GFR, BMP #### [place] [address] Heparin dose (APTT) Heparin IV Normal [facility] ([place] Comment on above: Performed By: #### M G, GFR, BMP #### [place] [address] BMPon 09-20-2022 BUN/Creatinine Ratio 9.8 ratio Low 10.0-22.0 [facility] ([place] Comment on above: Performed By: #### M G, GFR, BMP #### [place] [address] Calcium [Mass/Vol] 8.2 mg/dL Low 8.7-10.4 [facility] ([place] Comment on above: Performed By: #### M G, GFR, BMP #### [place] [id number] Chloride [Moles/Vol] 106 mmol/L Normal 98-110 [facility] ([place] Comment on above: Performed By: #### M G, GFR, BMP #### [place] [address] CO2 [Moles/Vol] 27 mmol/L Normal 22-32 [facility] ([place] Comment on above: Performed By: #### M G, GFR, BMP #### [place] [id number] Creatinine [Mass/Vol] 1.23 mg/dL Normal 0.60-1.40 [facility] ([place]) Comment on above: Performed By: #### M G, GFR, BMP #### [place] [id number] Electrolyte Balance 4.0 mEq/L Normal 4.0-15.0 [facility] ([place] Comment on above: Performed By: #### Diamond Ortega, GFR, BMP #### [address] [address] Glucose [Mass/Vol] 237 mg/dL High 70-110 [facility] ([place] Comment on above: Performed By: #### M Jordan, GFR, BMP #### [address] [address] Potassium [Moles/Vol] 4.0 mmol/L Normal 3.5-5.0 [facility] ([place]) Comment on above: Performed By: #### Diamond Ortega, GFR, BMP #### [place] [id number] Sodium [Moles/Vol] 137 mmol/L Normal 136-145 [facility] ([place] Comment on above: Performed By: #### Diamond Ortega, GFR, BMP #### [place] [id number] Urea nitrogen [Mass/Vol] 12.0 mg/dL Normal 8.0-22.0 [facility] ([place] Comment on above: Performed By: #### Diamond Ortega, GFR, BMP #### [address] [address] CBCon 09-20-2022 Erythrocyte distribution width (RBC) [Ratio] 14.1 % Normal 11.5-15.5 [facility] ([place] Comment on above: Performed By: #### Diamond Ortega, GFR, BMP #### [address] [address] Hematocrit (Bld) [Volume fraction] 36.6 % Low 40.0-52.0 [facility] ([place] Comment on above: Performed By: #### Diamond Ortega, GFR, BMP #### [address] [address] Hgb 12.2 G/dL Low 13.0-17.5 [facility] ([place] Comment on above: Performed By: #### Diamond Ortega, GFR, BMP #### [address] [address] MCH (RBC) [Entitic mass] 29.3 pg Normal 27.0-33.0 [facility] ([place] Comment on above: Performed By: #### Diamond Ortega GFR, BMP #### [address] [address] MCHC 33.4 G/dL Normal 32.0-36.0 [facility] ([place] Comment on above: Performed By: #### Diamond Ortega, GFR, BMP #### [address] [address] MCV (RBC) [Entitic vol] 87.7 fL Normal 81.0-100.0 [facility] ([place] Comment on above: Performed By: #### Diamond Ortega GFR, BMP #### [place] [id number] Platelet 205 10 3/mcL Normal 150-450 [facility] ([place] Comment on above: Performed By: #### Diamond Ortega GFR, BMP #### [address] [address] Platelet mean volume (Bld) [Entitic vol] 9.5 fL Normal 6.4-10.5 [facility] ([place] Comment on above: Performed By: #### Diamond Ortega, GFR, BMP #### [place] [id number] RBC 4.17 10 6/mcL Low 4.50-6.00 [facility] ([place] Comment on above: Performed By: #### Diamond Ortega, GFR, BMP #### [address] [address] WBC 7.1 10 3/mcL Normal 4.5-10.8 [facility] ([place] Comment on above: Performed By: #### Diamond Ortega GFR, BMP #### [address] [address] HFPon 09-20-2022 Albumin Level 2.0 G/dL Low 3.2-4.8 [facility] ([place] Comment on above: Performed By: #### Diamond Ortega, GFR, BMP #### [place] [address] Albumin/Globulin [Mass ratio] 0.6 {ratio} Low 0.9-1.6 [facility] ([place] Comment on above: Performed By: #### M Jordan, GFR, BMP #### [place] [address] ALP [Catalytic activity/Vol] 82 U/L Normal 38-126 [facility] ([place] Comment on above: Performed By: #### M Jordan, GFR, BMP #### [place] [address] ALT [Catalytic activity/Vol] 8 U/L Low 12-55 [facility] ([place] Comment on above: Performed By: #### M Jordan, GFR, BMP #### [place] [address] AST [Catalytic activity/Vol] 10 U/L Normal 8-34 [facility] ([place] Comment on above: Performed By: #### Diamond Ortega, GFR, BMP #### [place] [address] Bili Direct 0.2 mg/dL Normal 0.0-0.4 [facility] ([place]) Comment on above: Result Comment: Use of this assay is not recommended for patients undergoing treatment with eltrombopag due to the potential for falsely elevated results. Performed By: #### M Jordan, GFR, BMP #### [place] [address] Bili Indirect 0.3 mg/dL Normal 0.1-10.0 [facility] ([place] Comment on above: Performed By: #### M G, GFR, BMP #### [place] [address] Bili Total 0.50 mg/dL Normal 0.20-1.20 [facility] ([place]) Comment on above: Result Comment: Use of this assay is not recommended for patients undergoing treatment with eltrombopag due to the potential for falsely elevated results. Performed By: #### Diamond G, GFR, BMP #### [place] [address] Globulin 3.4 G/dL Normal 1.5-3.8 [facility] ([place] Comment on above: Performed By: #### M G, GFR, BMP #### [facility] [address] [place] [address] Total Protein 5.4 G/dL Low 5.7-8.2 [facility] ([place]) Comment on above: Result Comment: No te - New Reference Range in effect 19 Performed By: #### M G, GFR, BMP #### [facility] [address] [place] [id number] LABORATORYOrdered By: Billie Lobo on 09-20-2022 Blood Glucose Testing Reason Routine (09/20/22 11:23 AM) [facility] Work Phone: Glucose [Mass/Vol] 183 mg/dL Invalid Interpretation Code 70 - 110 mg/dL [facility] Work Phone: Blood Glucose Testing Reason Routine (09/20/22 7:09 AM) [facility] Work Phone: Glucose [Mass/Vol] 226 mg/dL Invalid Interpretation Code 70 - 110 mg/dL [facility] Work Phone: LABORATORYOrdered By: Raymundo Santos on [...] (S/P/Bld) [Vol rate/Area] ml/min/1.73sqm Invalid Interpretation Code [facility] Comment on above: Interpretive Data: GFR [...] (S/P/Bld) [Vol rate/Area] ml/min/1.73sqm Invalid Interpretation Code [facility] Comment on above: Interpretive Data: GFR [...] Invalid Interpretation Code 13.0 - 17.5 G/dL [facility] Lymphocytes (Bld) [#/Vol] 0.9 103/mcL Invalid [...] [Mass/Vol] 2.0 mg/dL Normal 1.6-2.4 [facility] ([place] Comment on above: Performed By: #### M G, GFR, BMP #### [address] [address] .Auto Diffon 09-19-2022 Basophil, Absolute 0.1 10 3/mcL Normal 0.0-0.3 [facility] ([place] Comment on above: Performed By: #### H FP, CBC, ANEU, ADIFF #### [address] [address] Basophils/100 WBC (Bld) 1.0 % Normal 0.0-2.5 [facility] ([place]) Comment on above: Performed By: #### H FP, CBC, ANEU, ADIFF #### [address] [address] Eosinophil, Absolute 0.1 10 3/mcL Normal 0.0-0.7 [facility] ([place]) Comment on above: Performed By: #### H FP, CBC, ANEU, ADIFF #### [address] [address] Eosinophils/100 WBC (Bld) 1.6 % Normal 0.0-6.0 [facility] ([place]) Comment on above: Performed By: #### H FP, CBC, ANEU, ADIFF #### [address] [address] Lymphocyte, Absolute 1.1 10 3/mcL Normal 0.9-4.3 [facility] ([place] Comment on above: Performed By: #### H FP, CBC, ANEU, ADIFF #### [address] [address] Lymphocytes/100 WBC (Bld) 14.5 % Low 20.0-40.0 [facility] ([place]) Comment on above: Performed By: #### H FP, CBC, ANEU, ADIFF #### [address] [address] Monocyte, Absolute 0.7 10 3/mcL Normal 0.1-1.4 [facility] ([place] Comment on above: Performed By: #### H FP, CBC, ANEU, ADIFF #### [address] [address] Monocytes/100 WBC (Bld) 9.3 % Normal 2.0-13.0 [facility] ([place]) Comment on above: Performed By: #### H FP, CBC, ANEU, ADIFF #### [address] [address] Neutrophils/100 WBC (Bld) 73.6 % Normal 50.0-75.0 [facility] ([place] Comment on above: Performed By: #### H FP, CBC, ANEU, ADIFF #### [address] [address] .GFRon 09-19-2022 GFR >60 Normal [facility] ([place]) Comment on above: Result Comment: GFR [...] #### H FP, CBC, ANEU, ADIFF #### [address] [address] GFR Non- 60 ml/min/1.73sqm Normal [facility] ([place] Comment on above: Result Comment: GFR Population [...] #### H FP, CBC, ANEU, ADIFF #### [address] [address] .NEUABSon 09-19-2022 Neutrophil, Absolute 5.8 10 3/mcL Normal 2.3-8.1 [facility] ([place] Comment on above: Performed By: #### H FP, CBC, ANEU, ADIFF #### [address] [address] APTTon 09-19-2022 aPTT Coag (Bld) [Time] 61.4 s High 25.0-35.0 [facility] ([place] Comment on above: Result Comment: For Heparin anticoagulation therapy, the recommended therapeutic range is: 54-77 seconds (APTT Correlation with Anti-Xa therapeutic range of 0.3-0.7 units/ml). PLEASE REFERENCE THE PHARMACY PROTOCOL FOR DOSING. Performed By: #### H FP, CBC, ANEU, ADIFF #### [address] [address] Heparin dose (APTT) Heparin IV Normal [facility] ([place] Comment on above: Performed By: #### H FP, CBC, ANEU, ADIFF #### [place] [address] aPTT Coag (Bld) [Time] 52.7 s High 25.0-35.0 [facility] ([place] Comment on above: Result Comment: For Heparin anticoagulation therapy, the recommended therapeutic range is: 54-77 seconds (APTT Correlation with Anti-Xa therapeutic range of 0.3-0.7 units/ml). PLEASE REFERENCE THE PHARMACY PROTOCOL FOR DOSING. Performed By: #### H FP, CBC, ANEU, ADIFF #### [place] [address] Heparin dose (APTT) Heparin IV Normal [facility] ([place] Comment on above: Performed By: #### H FP, CBC, ANEU, ADIFF #### [place] [address] CBCon 09-19-2022 Erythrocyte distribution width (RBC) [Ratio] 13.9 % Normal 11.5-15.5 [facility] ([place]) Comment on above: Performed By: #### H FP, CBC, ANEU, ADIFF #### [place] [address] Hematocrit (Bld) [Volume fraction] 37.0 % Low 40.0-52.0 [facility] ([place] Comment on above: Performed By: #### H FP, CBC, ANEU, ADIFF #### [place] [address] Hgb 12.4 G/dL Low 13.0-17.5 [facility] ([place] Comment on above: Performed By: #### H FP, CBC, ANEU, ADIFF #### [place] [address] MCH (RBC) [Entitic mass] 29.5 pg Normal 27.0-33.0 [facility] ([place] Comment on above: Performed By: #### H FP, CBC, ANEU, ADIFF #### [place] [address] MCHC 33.6 G/dL Normal 32.0-36.0 [facility] ([place]) Comment on above: Performed By: #### H FP, CBC, ANEU, ADIFF #### [address] [address] MCV (RBC) [Entitic vol] 88.0 fL Normal 81.0-100.0 A [facility] ([place]) Comment on above: Performed By: #### H FP, CBC, ANEU, ADIFF #### [place] [address] Platelet 193 10 3/mcL Normal 150-450 [facility] ([place]) Comment on above: Performed By: #### H FP, CBC, ANEU, ADIFF #### [place] [address] Platelet mean volume (Bld) [Entitic vol] 9.3 fL Normal 6.4-10.5 [facility] ([place]) Comment on above: Performed By: #### H FP, CBC, ANEU, ADIFF #### [place] [address] RBC 4.21 10 6/mcL Low 4.50-6.00 [facility] ([place]) Comment on above: Performed By: #### H FP, CBC, ANEU, ADIFF #### [place] [id number] WBC 7.9 10 3/mcL Normal 4.5-10.8 [facility] ([place] Comment on above: Performed By: #### H FP, CBC, ANEU, ADIFF #### [place] [address] CMPon 09-19-2022 Albumin Level 2.4 G/dL Low 3.2-4.8 [facility] ([place]) Comment on above: Performed By: #### H FP, CBC, ANEU, ADIFF #### [place] [id number] Albumin/Globulin [Mass ratio] 0.7 {ratio} Low 0.9-1.6 [facility] ([place] Comment on above: Performed By: #### H FP, CBC, ANEU, ADIFF #### [address] [address] ALP [Catalytic activity/Vol] 77 U/L Normal 38-126 [facility] ([place] Comment on above: Performed By: #### H FP, CBC, ANEU, ADIFF #### [address] [address] ALT/SGPT <8 Low 12-55 [facility] ([place] Comment on above: Performed By: #### H FP, CBC, ANEU, ADIFF #### [address] [address] AST [Catalytic activity/Vol] 12 U/L Normal 8-34 [facility] ([place] Comment on above: Performed By: #### H FP, CBC, ANEU, ADIFF #### [address] [address] Bili Total 0.70 mg/dL Normal 0.20-1.20 [facility] ([place]) Comment on above: Result Comment: Use of this assay is not recommended for patients undergoing treatment with eltrombopag due to the potential for falsely elevated results. Performed By: #### H FP, CBC, ANEU, ADIFF #### [address] [address] BUN/Creatinine Ratio 10.4 ratio Normal 10.0-22.0 [facility] ([place] Comment on above: Performed By: #### H FP, CBC, ANEU, ADIFF #### [address] [address] Calcium [Mass/Vol] 8.0 mg/dL Low 8.7-10.4 [facility] ([place] Comment on above: Performed By: #### H FP, CBC, ANEU, ADIFF #### [address] [address] Chloride [Moles/Vol] 107 mmol/L Normal 98-110 [facility] [place] Comment on above: Performed By: #### H FP, CBC, ANEU, ADIFF #### [address] [address] CO2 [Moles/Vol] 28 mmol/L Normal 22-32 [facility] ([place] Comment on above: Performed By: #### H FP, CBC, ANEU, ADIFF #### [address] [address] Creatinine [Mass/Vol] 1.25 mg/dL Normal 0.60-1.40 [facility] ([place]) Comment on above: Performed By: #### H FP, CBC, ANEU, ADIFF #### [address] [address] Electrolyte Balance 6.0 mEq/L Normal 4.0-15.0 [facility] ([place] Comment on above: Performed By: #### H FP, CBC, ANEU, ADIFF #### [address] [address] Globulin 3.6 G/dL Normal 1.5-3.8 [facility] ([place] Comment on above: Performed By: #### H FP, CBC, ANEU, ADIFF #### [address] [address] Glucose [Mass/Vol] 134 mg/dL High 70-110 [facility] [place] Comment on above: Performed By: #### H FP, CBC, ANEU, ADIFF #### [address] [address] Potassium [Moles/Vol] 3.6 mmol/L Normal 3.5-5.0 [facility] ([place] Comment on above: Performed By: #### H FP, CBC, ANEU, ADIFF #### [address] [address] Sodium [Moles/Vol] 141 mmol/L Normal 136-145 [facility] [place] Comment on above: Performed By: #### H FP, CBC, ANEU, ADIFF #### [address] [address] Total Protein 6.0 G/dL Normal 5.7-8.2 [facility] ([place]) Comment on above: Result Comment: No te - New Reference Range in effect 19 Performed By: #### H FP, CBC, ANEU, ADIFF #### [address] [address] Urea nitrogen [Mass/Vol] 13.0 mg/dL Normal 8.0-22.0 [facility] ([place]) Comment on above: Performed By: #### H FP, CBC, ANEU, ADIFF #### [address] [address] LABORATORYOrdered By: Amie Hudson on 09-19-2022 Blood Glucose Testing Reason Routine (09/19/22 9:01 PM) [facility] Work Phone: Glucose [Mass/Vol] 151 mg/dL Invalid Interpretation Code 70 - 110 mg/dL [facility] Work Phone: LABORATORYOrdered By: Kenzie carmona on [...] [Mass/Vol] 1.8 mg/dL Normal 1.6-2.4 [facility] ([place] Comment on above: Performed By: #### M G, GFR, BMP #### [place] [id number] [address] [place] [id number] [place] HEPATOBILIARY DUCT SYSTEM IMAGINGon 09-19-2022 NM [...] 12:44:31 PM Ordering Provider: CINDA FERRO Normal [facility] ([place]) RPRon 09-19-2022 Reagin Ab RPR Ql (S) Non-Reactive Normal Non-[place] ctiv e [facility] ([place]) Comment on above: Result Comment: The RPR [...] #### H FP, CBC, ANEU, ADIFF #### [address] [address] VANCRon 09-19-2022 LDose Vancomycin: (random) See eMAR Normal [facility] ([place]) Comment on above: Performed By: #### M G, GFR, BMP #### [address] [place] [address] 09-19-2022 LDose Vancomycin:(trough) See eMAR Normal [facility] ([place]) Comment on above: Performed By: #### H FP, CBC, ANEU, ADIFF #### [place] [address] Vancomycin Tr 22.8 mcg/mL Critically abnormal 5.0-20.0 [facility] ([place]) Comment on above: Result Comment: read back by Reynaldo Gannon/ pharmacy Performed By: #### H FP, CBC, ANEU, ADIFF #### [place] [address] .Auto Diffon 09-18-2022 Basophil, Absolute 0.1 10 3/mcL Normal 0.0-0.3 [facility] ([place] Comment on above: Performed By: #### H FP, CBC, ANEU, ADIFF #### [place] [address] Basophils/100 WBC (Bld) 0.7 % Normal 0.0-2.5 A [facility] ([place]) Comment on above: Performed By: #### H FP, CBC, ANEU, ADIFF #### [place] [address] Eosinophil, Absolute 0.1 10 3/mcL Normal 0.0-0.7 [facility] ([place]) Comment on above: Performed By: #### H FP, CBC, ANEU, ADIFF #### [place] [address] Eosinophils/100 WBC (Bld) 0.8 % Normal 0.0-6.0 [facility] ([place]) Comment on above: Performed By: #### H FP, CBC, ANEU, ADIFF #### [place] [address] Lymphocyte, Absolute 1.7 10 3/mcL Normal 0.9-4.3 [facility] ([place]) Comment on above: Performed By: #### H FP, CBC, ANEU, ADIFF #### [address] [address] Lymphocytes/100 WBC (Bld) 17.1 % Low 20.0-40.0 [facility] ([place]) Comment on above: Performed By: #### H FP, CBC, ANEU, ADIFF #### [address] [address] Monocyte, Absolute 0.9 10 3/mcL Normal 0.1-1.4 [facility] ([place] Comment on above: Performed By: #### H FP, CBC, ANEU, ADIFF #### [address] [address] Monocytes/100 WBC (Bld) 9.0 % Normal 2.0-13.0 A [facility] ([place] Comment on above: Performed By: #### H FP, CBC, ANEU, ADIFF #### [address] [address] Neutrophils/100 WBC (Bld) 72.4 % Normal 50.0-75.0 [facility] ([place]) Comment on above: Performed By: #### H FP, CBC, ANEU, ADIFF #### [address] [address] .GFRon 09-18-2022 GFR 54 ml/min/1.73sqm Normal [facility] ([place]) Comment on above: Result Comment: GFR Population [...] By: #### M G, GFR, BMP #### [address] [address] GFR Non- 44 ml/min/1.73sqm Normal [facility] ([place]) Comment on above: Result Comment: GFR Population [...] By: #### Diamond Ortega, GFR, BMP #### [address] [address] GFR 50 ml/min/1.73sqm Normal [facility] ([place]) Comment on above: Result Comment: GFR Population [...] meters Performed By: #### A PTT #### [address] [address] GFR Non- 41 ml/min/1.73sqm Normal [facility] ([place]) Comment on above: Result Comment: GFR Population [...] meters Performed By: #### A PTT #### [address] [address] .NEUABSon 09-18-2022 Neutrophil, Absolute 7.1 10 3/mcL Normal 2.3-8.1 [facility] ([place] Comment on above: Performed By: #### H FP, CBC, ANEU, ADIFF #### [place] [address] APTTon 09-18-2022 aPTT Coag (Bld) [Time] 49.8 s High 25.0-35.0 [facility] ([place]) Comment on above: Result Comment: For Heparin anticoagulation therapy, the recommended therapeutic range is: 54-77 seconds (APTT Correlation with Anti-Xa therapeutic range of 0.3-0.7 units/ml). PLEASE REFERENCE THE PHARMACY PROTOCOL FOR DOSING. Performed By: #### A PTT #### [place] [address] Heparin dose (APTT) Unknown Normal [facility] ([place]) Comment on above: Performed By: #### A PTT #### [address] [address] aPTT Coag (Bld) [Time] 46.7 s High 25.0-35.0 [facility] ([place] Comment on above: Result Comment: For Heparin anticoagulation therapy, the recommended therapeutic range is: 54-77 seconds (APTT Correlation with Anti-Xa therapeutic range of 0.3-0.7 units/ml). PLEASE REFERENCE THE PHARMACY PROTOCOL FOR DOSING. Performed By: #### A PTT #### [address] [address] Heparin dose (APTT) Heparin IV Normal [facility] ([place] Comment on above: Performed By: #### A PTT #### [place] [id number] aPTT Coag (Bld) [Time] 44.4 s High 25.0-35.0 [facility] ([place] Comment on above: Result Comment: For Heparin anticoagulation therapy, the recommended therapeutic range is: 54-77 seconds (APTT Correlation with Anti-Xa therapeutic range of 0.3-0.7 units/ml). PLEASE REFERENCE THE PHARMACY PROTOCOL FOR DOSING. Performed By: #### A PTT #### [place] [id number] Heparin dose (APTT) Heparin IV Normal [facility] ([place] Comment on above: Performed By: #### A PTT #### [place] [id number] aPTT Coag (Bld) [Time] 55.3 s High 25.0-35.0 [facility] ([place] Comment on above: Result Comment: For Heparin anticoagulation therapy, the recommended therapeutic range is: 54-77 seconds (APTT Correlation with Anti-Xa therapeutic range of 0.3-0.7 units/ml). PLEASE REFERENCE THE PHARMACY PROTOCOL FOR DOSING. Performed By: #### A PTT #### [place] [id number] Heparin dose (APTT) Heparin IV Normal [facility] ([place] Comment on above: Performed By: #### A PTT #### [address] [address] BMPon 09-18-2022 BUN/Creatinine Ratio 11.0 ratio Normal 10.0-22.0 [facility] ([place] Comment on above: Performed By: #### M G, GFR, BMP #### [address] [address] Calcium [Mass/Vol] 7.6 mg/dL Low 8.7-10.4 [facility] [place] Comment on above: Performed By: #### M G, GFR, BMP #### [address] [address] Chloride [Moles/Vol] 102 mmol/L Normal 98-110 [facility] [place] Comment on above: Performed By: #### Diamond Ortega, GFR, BMP #### [address] [address] CO2 [Moles/Vol] 31 mmol/L Normal 22-32 [facility] ([place]) Comment on above: Performed By: #### Diamond Ortega, GFR, BMP #### [address] [address] Creatinine [Mass/Vol] 1.63 mg/dL High 0.60-1.40 [facility] ([place]) Comment on above: Performed By: #### Diamond Ortega, GFR, BMP #### [address] [address] Electrolyte Balance 4.0 mEq/L Normal 4.0-15.0 [facility] ([place] Comment on above: Performed By: #### Diamond Ortega, GFR, BMP #### [address] [address] Glucose [Mass/Vol] 208 mg/dL High 70-110 [facility] [place] Comment on above: Performed By: #### Diamond Ortega, GFR, BMP #### [address] [address] Potassium [Moles/Vol] 3.3 mmol/L Low 3.5-5.0 [facility] ([place] Comment on above: Performed By: #### Diamond Ortega, GFR, BMP #### [address] [address] Sodium [Moles/Vol] 137 mmol/L Normal 136-145 [facility] [place] Comment on above: Performed By: #### Diaomnd G, GFR, BMP #### [address] [address] Urea nitrogen [Mass/Vol] 18.0 mg/dL Normal 8.0-22.0 [facility] ([place]) Comment on above: Performed By: #### Diamond G, GFR, BMP #### [address] [address] BUNon 09-18-2022 Urea nitrogen [Mass/Vol] 20.0 mg/dL Normal 8.0-22.0 [facility] ([place]) Comment on above: Performed By: #### A PTT #### [place] [address] CBCon 09-18-2022 Erythrocyte distribution width (RBC) [Ratio] 14.0 % Normal 11.5-15.5 [facility] ([place]) Comment on above: Performed By: #### H FP, CBC, ANEU, ADIFF #### [place] [address] Hematocrit (Bld) [Volume fraction] 35.6 % Low 40.0-52.0 [facility] ([place]) Comment on above: Performed By: #### H FP, CBC, ANEU, ADIFF #### [place] [address] Hgb 11.9 G/dL Low 13.0-17.5 [facility] ([place]) Comment on above: Performed By: #### H FP, CBC, ANEU, ADIFF #### [place] [address] MCH (RBC) [Entitic mass] 29.4 pg Normal 27.0-33.0 [facility] ([place]) Comment on above: Performed By: #### H FP, CBC, ANEU, ADIFF #### [place] [address] MCHC 33.3 G/dL Normal 32.0-36.0 [facility] ([place] Comment on above: Performed By: #### H FP, CBC, ANEU, ADIFF #### [place] [address] MCV (RBC) [Entitic vol] 88.3 fL Normal 81.0-100.0 A [facility] ([place] Comment on above: Performed By: #### H FP, CBC, ANEU, ADIFF #### [place] [address] Platelet 210 10 3/mcL Normal 150-450 [facility] ([place]) Comment on above: Performed By: #### H FP, CBC, ANEU, ADIFF #### [place] [address] Platelet mean volume (Bld) [Entitic vol] 9.6 fL Normal 6.4-10.5 [facility] ([place]) Comment on above: Performed By: #### H FP, CBC, ANEU, ADIFF #### [place] [address] RBC 4.04 10 6/mcL Low 4.50-6.00 [facility] ([place]) Comment on above: Performed By: #### H FP, CBC, ANEU, ADIFF #### [place] [address] WBC 9.7 10 3/mcL Normal 4.5-10.8 [facility] ([place]) Comment on above: Performed By: #### H FP, CBC, ANEU, ADIFF #### [place] [address] CREon 09-18-2022 Creatinine [Mass/Vol] 1.73 mg/dL High 0.60-1.40 [facility] ([place] Comment on above: Performed By: #### A PTT #### [place] [address] DRUGUon 09-18-2022 Amphetamine (u) Negative Normal Negative [facility] ([place]) Comment on above: Performed By: #### A PTT #### [place] [address] Barbiturate (u) Negative Normal Negative [facility] ([place] Comment on above: Performed By: #### A PTT #### [place] [address] Benzodiazepine (u) Positive Abnormal Negative [facility] [place] Comment on above: Performed By: #### A PTT #### [place] [address] Cannabinoid (u) Negative Normal Negative [facility] ([place] Comment on above: Performed By: #### A PTT #### [address] [address] Cocaine Ql (U) Positive Abnormal Negative [facility] ([place]) Comment on above: Performed By: #### A PTT #### [address] [address] Fentanyl (u) Positive Abnormal Negative [facility] ([place] Comment on above: Result Comment: Test ing has been performed FOR MEDICAL PURPOSES ONLY. Performed By: #### A PTT #### [address] [address] Methadone Ql (U) Negative Normal Negative [facility] ([place]) Comment on above: Performed By: #### A PTT #### [place] [id number] Opiate (u) Negative Normal Negative [facility] ([place] Comment on above: Performed By: #### A PTT #### [place] [id number] Oxycodone (u) Negative Normal Negative [facility] ([place] Comment on above: Result Comment: Test ing has been performed FOR MEDICAL PURPOSES ONLY. Performed By: #### A PTT #### [address] [address] PCP (u) Negative Normal Negative [facility] ([place] Comment on above: Performed By: #### A PTT #### [address] [address] Propoxyphene (u) Negative Normal Negative [facility] ([place] Comment on above: Performed By: #### A PTT #### [address] [address] U pH Drug Scrn 6.0 Normal 5.0-8.0 [facility] ([place] Comment on above: Performed By: #### A PTT #### [place] [id number] Urine Drugs screened: See Below Normal [facility] [place] Comment on above: Result Comment: This drug [...] ONLY. Performed By: #### A PTT #### [place] [address] HEPACon 09-18-2022 Hep A IgM Ab Non-Reactive Normal Non-Reactiv [facility] ([place] Comment on above: Performed By: #### H FP, CBC, ANEU, ADIFF #### [place] [address] Hep A IgM Ab Int No serological evide nce of a current Hepatitis A infection. [facility] ([place]) Comment on above: Result Comment: See Interp Performed By: #### H FP, CBC, ANEU, ADIFF #### [place] [address] Hep B Core IgM Ab Non-Reactive Normal Non-Reacti v [facility] ([place] Comment on above: Performed By: #### H FP, CBC, ANEU, ADIFF #### [place] [address] Hep B Core IgM Ab Int Samples with a spenser ue < 0.80 Index are considered nonreactive (negative) for IgM antibodies to hepatitis B core antigen. [facility] ([place]) Comment on above: Result Comment: See Interp Performed By: #### H FP, CBC, ANEU, ADIFF #### [place] [address] Hep B Surf Ag Non-Reactive Normal Non-Reactiv [facility] ([place] Comment on above: Performed By: #### H FP, CBC, ANEU, ADIFF #### [place] [address] Hep C Ab Non-Reactive Normal Non-Reactiv [facility] ([place] Comment on above: Performed By: #### H FP, CBC, ANEU, ADIFF #### [place] [id number] Hep C Ab Int Nonreactive: Samples with a value < 0.80 are considered nonreactive (negative) for antibodies to HCV. Normal [facility] ([place]) Comment on above: Result Comment: A ne gative test result does not exclude the possibility of exposure to or infection with HCV. HCV antibodies may be undetectable in some stages of the infection and in some clinical conditions. See Interp Performed By: #### H FP, CBC, ANEU, ADIFF #### [address] [address] HFPon 09-18-2022 Albumin Level 1.8 G/dL Low 3.2-4.8 [facility] ([place]) Comment on above: Performed By: #### M G, GFR, BMP #### [place] [address] Albumin/Globulin [Mass ratio] 0.6 {ratio} Low 0.9-1.6 [facility] ([place]) Comment on above: Performed By: #### M G, GFR, BMP #### [place] [id number] ALP [Catalytic activity/Vol] 75 U/L Normal 38-126 [facility] ([place]) Comment on above: Performed By: #### M G, GFR, BMP #### [place] [address] ALT/SGPT <7 Low 12-55 [facility] ([place] Comment on above: Performed By: #### Diamond G, GFR, BMP #### [place] [id number] AST [Catalytic activity/Vol] 10 U/L Normal 8-34 [facility] ([place] Comment on above: Performed By: #### Diamond G, GFR, BMP #### [place] [id number] Bili Direct 0.2 mg/dL Normal 0.0-0.4 [facility] ([place] Comment on above: Result Comment: Use of this assay is not recommended for patients undergoing treatment with eltrombopag due to the potential for falsely elevated results. Performed By: #### M G, GFR, BMP #### [place] [address] Bili Indirect 0.3 mg/dL Normal 0.1-10.0 [facility] ([place] Comment on above: Performed By: #### M G, GFR, BMP #### [place] [address] Bili Total 0.50 mg/dL Normal 0.20-1.20 [facility] ([place] Comment on above: Result Comment: Use of this assay is not recommended for patients undergoing treatment with eltrombopag due to the potential for falsely elevated results. Performed By: #### M G, GFR, BMP #### [place] [address] Globulin 3.1 G/dL Normal 1.5-3.8 [facility] ([place] Comment on above: Performed By: #### M G, GFR, BMP #### [place] [address] Total Protein 4.9 G/dL Low 5.7-8.2 [facility] ([place]) Comment on above: Result Comment: No te - New Reference Range in effect 19 Performed By: #### M G, GFR, BMP #### [place] [address] HIVon 09-18-2022 HIV 1/2 Ab Non-Reactive Normal Non-Reactiv e [facility] ([place]) Comment on above: Result Comment: Spec imen is negative for anti-HIV-1 and anti-HIV-2. Performed By: #### H FP, CBC, ANEU, ADIFF #### [place] [address] LABORATORYOrdered By: Josey Tate on 09-18-2022 LDose [...] [Mass/Vol] 2.0 mg/dL Normal 1.6-2.4 [facility] [place] Comment on above: Performed By: #### M G, GFR, BMP #### [facility] [address] [place] [address] MYCOon 09-18-2022 Mycoplasma IgM Negative Normal [facility] ([place]) Comment on above: Result Comment: INTE RPRETATION OF MYCOPLASMA IgM: Negative: IgM to M. pneumoniae Absent, or at levels below the assay limit of detection. Positive: IgM to M. pneumoniae Present. Invalid: Test results are invalid due to invalid internal control. Assay was performed in duplicate. Repeat testing is suggested if clinically indicated. Performed By: #### H FP, CBC, ANEU, ADIFF #### [address] [address] US ABDOMEN COMPLETE 2022 US ABDOMEN COMPLETE [...] 11:30:45 AM Ordering Provider: CINDA FERRO Normal [facility] ([place]) [facility] 09-18-2022 Vancomycin Lvl (random) 20.7 mcg/mL Normal [facility] ([place]) Comment on above: Performed By: #### M G, GFR, BMP #### [address] [address] [facility] 09-18-2022 Vancomycin Tr 19.0 mcg/mL Normal 5.0-20.0 [facility] ([place] Comment on above: Performed By: #### H FP, CBC, ANEU, ADIFF #### [address] [address] LDose Vancomycin:(trough) See eMAR Normal [facility] [place] Comment on above: Performed By: #### H FP, CBC, ANEU, ADIFF #### [address] [address] .Auto Diffon 09-17-2022 Basophil, Absolute 0.2 10 3/mcL Normal 0.0-0.3 [facility] [place] Comment on above: Performed By: #### M G, GFR, BMP #### [address] [address] Basophils/100 WBC (Bld) 1.2 % Normal 0.0-2.5 A [facility] ([place] Comment on above: Performed By: #### M Jordan, GFR, BMP #### [address] [address] Eosinophil, Absolute 0.1 10 3/mcL Normal 0.0-0.7 [facility] ([place] Comment on above: Performed By: #### Diamond G, GFR, BMP #### [address] [address] Eosinophils/100 WBC (Bld) 0.4 % Normal 0.0-6.0 [facility] ([place] Comment on above: Performed By: #### M G, GFR, BMP #### [address] [address] Lymphocyte, Absolute 2.1 10 3/mcL Normal 0.9-4.3 [facility] [place] Comment on above: Performed By: #### M G, GFR, BMP #### [address] [address] Lymphocytes/100 WBC (Bld) 14.2 % Low 20.0-40.0 [facility] ([place] Comment on above: Performed By: #### Diamond G, GFR, BMP #### [address] [address] Monocyte, Absolute 1.2 10 3/mcL Normal 0.1-1.4 [facility] [place] Comment on above: Performed By: #### Diamond Ortega, GFR, BMP #### [address] [address] Monocytes/100 WBC (Bld) 8.3 % Normal 2.0-13.0 A [facility] [place] Comment on above: Performed By: #### Diamond Ortega, GFR, BMP #### [address] [address] Neutrophils/100 WBC (Bld) 75.9 % High 50.0-75.0 [facility] ([place] Comment on above: Performed By: #### Diamond Ortega, GFR, BMP #### [address] [address] Basophil, Absolute 0.1 10 3/mcL Normal 0.0-0.3 [facility] [place] Comment on above: Performed By: #### Diamond Ortega, GFR, BMP #### [address] [address] Basophils/100 WBC (Bld) 0.5 % Normal 0.0-2.5 A [facility] [place] Comment on above: Performed By: #### Diamond Ortega, GFR, BMP #### [address] [address] Eosinophil, Absolute 0.0 10 3/mcL Normal 0.0-0.7 [facility] [place] Comment on above: Performed By: #### Diamond Ortega, GFR, BMP #### [address] [address] Eosinophils/100 WBC (Bld) 0.3 % Normal 0.0-6.0 [facility] ([place]) Comment on above: Performed By: #### Diamond Ortega, GFR, BMP #### [address] [address] Lymphocyte, Absolute 2.0 10 3/mcL Normal 0.9-4.3 [facility] [place] Comment on above: Performed By: #### M G, GFR, BMP #### [address] [address] Lymphocytes/100 WBC (Bld) 13.5 % Low 20.0-40.0 [facility] [place] Comment on above: Performed By: #### M G, GFR, BMP #### [address] [address] Monocyte, Absolute 1.0 10 3/mcL Normal 0.1-1.4 [facility] [place] Comment on above: Performed By: #### M G, GFR, BMP #### [address] [address] Monocytes/100 WBC (Bld) 6.7 % Normal 2.0-13.0 A [facility] [place] Comment on above: Performed By: #### Diamond G, GFR, BMP #### [address] [address] Neutrophils/100 WBC (Bld) 79.0 % High 50.0-75.0 [facility] ([place] Comment on above: Performed By: #### Diamond G, GFR, BMP #### [address] [address] .GFRon 09-17-2022 GFR 44 ml/min/1.73sqm Normal [facility] [place] Comment on above: Result Comment: GFR Population [...] meters Performed By: #### A PTT #### [address] [address] GFR Non- 37 ml/min/1.73sqm Normal [facility] [place] Comment on above: Result Comment: GFR Population [...] meters Performed By: #### A PTT #### [address] [address] GFR 52 ml/min/1.73sqm Normal [facility] [place] Comment on above: Result Comment: GFR Population [...] #### H FP, CBC, ANEU, ADIFF #### [address] [address] GFR Non- 43 ml/min/1.73sqm Normal [facility] ([place]) Comment on above: Result Comment: GFR Population [...] #### H FP, CBC, ANEU, ADIFF #### [place] [address] .NEUABSon 09-17-2022 Neutrophil, Absolute 11.2 10 3/mcL High 2.3-8.1 A [facility] ([place] Comment on above: Performed By: #### M G, GFR, BMP #### [place] [address] Neutrophil, Absolute 11.5 10 3/mcL High 2.3-8.1 A [facility] ([place] Comment on above: Performed By: #### M G, GFR, BMP #### [place] [address] APTTon 09-17-2022 aPTT Coag (Bld) [Time] 38.4 s High 25.0-35.0 formerly [facility] ([place]) Comment on above: Result Comment: For Heparin anticoagulation therapy, the recommended therapeutic range is: 54-77 seconds (APTT Correlation with Anti-Xa therapeutic range of 0.3-0.7 units/ml). PLEASE REFERENCE THE PHARMACY PROTOCOL FOR DOSING. Performed By: #### M G, GFR, BMP #### [place] [address] Heparin dose (APTT) Heparin IV Normal [facility] ([place] Comment on above: Performed By: #### M G, GFR, BMP #### [place] [address] BGon 09-17-2022 Barometric Pressure 699 mmHg Normal [facility] ([place] Comment on above: Performed By: #### H FP, CBC, ANEU, ADIFF #### [place] [address] Base excess Calc (Bld) [Moles/Vol] 0.9 mmol/L Normal [facility] ([place]) Comment on above: Performed By: #### H FP, CBC, ANEU, ADIFF #### [address] [address] CO2 [Moles/Vol] 26.8 mmol/L Normal 22.0-30.0 [facility] ([place]) Comment on above: Performed By: #### H FP, CBC, ANEU, ADIFF #### [place] [id number] HCO3 (Bld) [Moles/Vol] 25.6 mmol/L Normal 21.0-29.0 A [facility] ([place] Comment on above: Performed By: #### H FP, CBC, ANEU, ADIFF #### [address] [address] Oxygen (Bld) [Partial pressure] 166.0 mm[Hg] High 74.0-108.0 [facility] ([place]) Comment on above: Performed By: #### H FP, CBC, ANEU, ADIFF #### [address] [address] Oxygen saturation in Blood 99.6 % High 92.0-96.0 [facility] ([place] Comment on above: Performed By: #### H FP, CBC, ANEU, ADIFF #### [address] [address] pCO2 41.0 mmHg Normal 32.0-46.0 [facility] ([place]) Comment on above: Performed By: #### H FP, CBC, ANEU, ADIFF #### [address] [address] pH (Bld) 7.413 [pH] Normal 7.380-7.460 [facility] ([place]) Comment on above: Performed By: #### H FP, CBC, ANEU, ADIFF #### [address] [address] BMPon 09-17-2022 BUN/Creatinine Ratio 9.9 ratio Low 10.0-22.0 [facility] ([place] Comment on above: Performed By: #### A PTT #### [address] [address] Calcium [Mass/Vol] 8.5 mg/dL Low 8.7-10.4 [facility] ([place] Comment on above: Performed By: #### A PTT #### [address] [address] Chloride [Moles/Vol] 102 mmol/L Normal 98-110 [facility] ([place] Comment on above: Performed By: #### A PTT #### [address] [address] CO2 [Moles/Vol] 30 mmol/L Normal 22-32 [facility] ([place] Comment on above: Performed By: #### A PTT #### [address] [address] Creatinine [Mass/Vol] 1.92 mg/dL High 0.60-1.40 [facility] ([place]) Comment on above: Performed By: #### A PTT #### [address] [address] Electrolyte Balance 7.0 mEq/L Normal 4.0-15.0 [facility] ([place] Comment on above: Performed By: #### A PTT #### [address] [address] Glucose [Mass/Vol] 187 mg/dL High 70-110 [facility] ([place] Comment on above: Performed By: #### A PTT #### [address] [address] Potassium [Moles/Vol] 3.7 mmol/L Normal 3.5-5.0 [facility] ([place] Comment on above: Performed By: #### A PTT #### [address] [address] Sodium [Moles/Vol] 139 mmol/L Normal 136-145 [facility] [place] Comment on above: Performed By: #### A PTT #### [place] [id number] Urea nitrogen [Mass/Vol] 19.0 mg/dL Normal 8.0-22.0 [facility] ([place] Comment on above: Performed By: #### A PTT #### [address] [address] BUN/Creatinine Ratio 9.6 ratio Low 10.0-22.0 [facility] ([place] Comment on above: Performed By: #### H FP, CBC, ANEU, ADIFF #### [address] [address] Calcium [Mass/Vol] 8.4 mg/dL Low 8.7-10.4 [facility] ([place] Comment on above: Performed By: #### H FP, CBC, ANEU, ADIFF #### [address] [address] Chloride [Moles/Vol] 106 mmol/L Normal 98-110 [facility] [place] Comment on above: Performed By: #### H FP, CBC, ANEU, ADIFF #### [address] [address] CO2 [Moles/Vol] 32 mmol/L Normal 22-32 [facility] ([place] Comment on above: Performed By: #### H FP, CBC, ANEU, ADIFF #### [address] [address] Creatinine [Mass/Vol] 1.66 mg/dL High 0.60-1.40 [facility] ([place] Comment on above: Performed By: #### H FP, CBC, ANEU, ADIFF #### [address] [address] Electrolyte Balance 3.0 mEq/L Low 4.0-15.0 [facility] ([place] Comment on above: Performed By: #### H FP, CBC, ANEU, ADIFF #### [address] [address] Glucose [Mass/Vol] 116 mg/dL High 70-110 [facility] [place] Comment on above: Performed By: #### H FP, CBC, ANEU, ADIFF #### [address] [address] Potassium [Moles/Vol] 3.5 mmol/L Normal 3.5-5.0 [facility] ([place] Comment on above: Performed By: #### H FP, CBC, ANEU, ADIFF #### [place] [address] Sodium [Moles/Vol] 141 mmol/L Normal 136-145 [facility] [place] Comment on above: Performed By: #### H FP, CBC, ANEU, ADIFF #### [place] [address] Urea nitrogen [Mass/Vol] 16.0 mg/dL Normal 8.0-22.0 [facility] ([place] Comment on above: Performed By: #### H FP, CBC, ANEU, ADIFF #### [place] [address] CBCon 09-17-2022 Erythrocyte distribution width (RBC) [Ratio] 14.2 % Normal 11.5-15.5 [facility] ([place]) Comment on above: Performed By: #### M G, GFR, BMP #### [place] [address] Hematocrit (Bld) [Volume fraction] 38.4 % Low 40.0-52.0 [facility] ([place]) Comment on above: Performed By: #### M G, GFR, BMP #### [place] [address] Hgb 12.5 G/dL Low 13.0-17.5 [facility] ([place] Comment on above: Performed By: #### M G, GFR, BMP #### [place] [address] MCH (RBC) [Entitic mass] 28.8 pg Normal 27.0-33.0 [facility] ([place] Comment on above: Performed By: #### M G, GFR, BMP #### [place] [id number] MCHC 32.5 G/dL Normal 32.0-36.0 [facility] ([place] Comment on above: Performed By: #### M G, GFR, BMP #### [address] [address] MCV (RBC) [Entitic vol] 88.3 fL Normal 81.0-100.0 A [facility] ([place] Comment on above: Performed By: #### Diamond Ortega, GFR, BMP #### [address] [address] Platelet 271 10 3/mcL Normal 150-450 [facility] ([place]) Comment on above: Performed By: #### M Jordan, GFR, BMP #### [address] [address] Platelet mean volume (Bld) [Entitic vol] 9.7 fL Normal 6.4-10.5 [facility] ([place]) Comment on above: Performed By: #### Diamond Ortega, GFR, BMP #### [address] [address] RBC 4.34 10 6/mcL Low 4.50-6.00 [facility] ([place]) Comment on above: Performed By: #### Diamond Ortega, GFR, BMP #### [address] [address] WBC 14.8 10 3/mcL High 4.5-10.8 [facility] ([place]) Comment on above: Performed By: #### Diamond Ortega, GFR, BMP #### [address] [address] Erythrocyte distribution width (RBC) [Ratio] 13.7 % Normal 11.5-15.5 [facility] ([place]) Comment on above: Performed By: #### Diamond Oretga, GFR, BMP #### [address] [address] Hematocrit (Bld) [Volume fraction] 38.3 % Low 40.0-52.0 [facility] ([place] Comment on above: Performed By: #### Diamond Ortega, GFR, BMP #### [address] [address] Hgb 12.7 G/dL Low 13.0-17.5 [facility] ([place]) Comment on above: Performed By: #### Diamond Ortega, GFR, BMP #### [address] [address] MCH (RBC) [Entitic mass] 29.0 pg Normal 27.0-33.0 [facility] ([place] Comment on above: Performed By: #### Diamond Ortega, GFR, BMP #### [address] [address] MCHC 33.0 G/dL Normal 32.0-36.0 [facility] ([place] Comment on above: Performed By: #### Diamond Ortega, GFR, BMP #### [address] [address] MCV (RBC) [Entitic vol] 87.9 fL Normal 81.0-100.0 A [facility] ([place] Comment on above: Performed By: #### Diamond Ortega, GFR, BMP #### [address] [address] Platelet 305 10 3/mcL Normal 150-450 [facility] ([place]) Comment on above: Performed By: #### Diamond Ortega, GFR, BMP #### [address] [address] Platelet mean volume (Bld) [Entitic vol] 9.8 fL Normal 6.4-10.5 [facility] ([place]) Comment on above: Performed By: #### Diamond Ortega, GFR, BMP #### [address] [address] RBC 4.36 10 6/mcL Low 4.50-6.00 [facility] ([place]) Comment on above: Performed By: #### Diamond Ortega, GFR, BMP #### [address] [address] WBC 14.5 10 3/mcL High 4.5-10.8 [facility] ([place]) Comment on above: Performed By: #### Diamond Ortega, GFR, BMP #### [address] [address] DRUGSon 09-17-2022 Acetaminophen [Mass/Vol] ug/mL Low 10.0-20.0 [facility] ([place]) Comment on above: Performed By: #### Diamond Ortega, GFR, BMP #### [place] [address] Ethanol Level <10.0 Normal [facility] ([place]) Comment on above: Performed By: #### M Jordan GFR, BMP #### [place] [address] Salicylate Lvl (ds) <3.0 Low 10.0-25.0 [facility] ([place] Comment on above: Performed By: #### Diamond Ortega GFR, BMP #### [place] [address] Serum Drugs screened: See Below Normal [facility] ([place]) Comment on above: Result Comment: This drug screen is a presumptive screening only. No confirmation will be performed unless requested. Drugs included in the ER serum drug screen are: Threshold Ethanol 10.0 mg/dL Salicylate 2.0 mg/dl Acetaminophen 2.0 mcg/mL Testing has been performed FOR MEDICAL PURPOSES ONLY. Performed By: #### M Jordan GFR, BMP #### [place] [address] LABORATORYOrdered By: Carmen Linn on 09-17-2022 LDose Vancomycin: (random) See eMAR (09/17/22 7:38 PM) Invalid Interpretation Code AH Chemistry S LABORATORYOrdered By: [employer] on 09-17-2022 Vancomycin [Mass/Vol] 27.2 mcg/mL Invalid Interpretation Code AH ADM SS LABORATORYOrdered By: Corey Adorno on 09-17-2022 INR Coag (PPP) [Relative time] 1.0 {INR} Invalid Interpretation Code AH Auto Coag SS Comment on above: Interpretive Data: Julian [employer] (CHEST, 1991, 102:312S-25S) [...] Detected AH Auto Viro/Sero SS B. parapertussis [id number] DNA MADISON+non-probe Ql (Nph) Not Detected *NA* [...] This assay has been validated in the [facility] for use with nasopharyngeal specimens in [facility] If a non-validated specimen or test collection [...] Lactic Acid Lvl 1.8 mmol/L Normal 0.2-2.0 [facility] ([place]) Comment on above: Performed By: #### H FP, CBC, ANEU, ADIFF #### [address] [address] MGon 09-17-2022 Magnesium [Mass/Vol] 2.4 mg/dL Normal 1.6-2.4 [facility] ([place]) Comment on above: Performed By: #### H FP, CBC, ANEU, ADIFF #### [place] [address] PROon 09-17-2022 INR Coag (PPP) [Relative time] 1.0 {INR} Normal [facility] ([place]) Comment on above: Result Comment: [employer] (CHEST, 1992, 102:312S-25S) recommended therapeutic range for oral anticoagulant therapy is: LOW RISK: Prophylaxis of venous thrombosis INR: 2.0-3.0 Treatment of pulmonary embolism 2.0-3.0 Prevention of systemic embolism 2.0-3.0 HIGH RISK: Mechanical prosthetic valves 2.5-3.5 Performed By: #### M G, GFR, BMP #### [place] [address] PT Coag (PPP) [Time] 11.3 s Normal 9.0-14.8 [facility] ([place] Comment on above: Result Comment: Effe ctive 08/23/07, Protime results may be affected by some antibiotics (i.e. Ciprofloxacin, Azithromycin, Bactrim) which may potentiate the action of oral anticoagulants, with further increases in Protime/INR. Performed By: #### M G, GFR, BMP #### [place] [address] RESCVIDon 09-17-2022 Adenovirus Not detected Normal Not Detected [facility] ([place]) Comment on above: Performed By: #### M G, GFR, BMP #### [place] [address] Bordetella Parapertussis Not detected Normal Not Detected [facility] ([place]) Comment on above: Performed By: #### M G, GFR, BMP #### [place] [address] Bordetella Pertussis Not detected Normal Not Detected [facility] ([place]) Comment on above: Performed By: #### M G, GFR, BMP #### [address] [address] Chlamydophila pneumoniae Not detected Normal Not Detected [facility] ([place]) Comment on above: Performed By: #### M G, GFR, BMP #### [place] [id number] Coronavirus 229E (Not COVID-19) Not detected Normal Not Detected [facility] ([place]) Comment on above: Performed By: #### M G, GFR, BMP #### [place] [address] Coronavirus HKU1 (Not COVID-19) Not detected Normal Not Detected [facility] ([place] Comment on above: Performed By: #### M G, GFR, BMP #### [place] [address] Coronavirus NL63 (Not COVID-19) Not detected Normal Not Detected [facility] ([place] Comment on above: Performed By: #### M G, GFR, BMP #### [place] [address] Coronavirus OC43 (Not COVID-19) Not detected Normal Not Detected [facility] ([place] Comment on above: Performed By: #### M G, GFR, BMP #### [place] [address] Human Metapneumovirus Not detected Normal Not Detected [facility] ([place] Comment on above: Performed By: #### M G, GFR, BMP #### [place] [address] Influenza A Not detected Normal Not Detected [facility] ([place] Comment on above: Performed By: #### M G, GFR, BMP #### [place] [id number] Influenza B Not detected Normal Not Detected [facility] ([place] Comment on above: Performed By: #### M G, GFR, BMP #### [address] [address] Mycoplasma pneumoniae Not detected Normal Not Detected [facility] ([place] Comment on above: Performed By: #### M G, GFR, BMP #### [address] [address] Parainfluenza 1 Not detected Normal Not Detected [facility] ([place] Comment on above: Performed By: #### M G, GFR, BMP #### [facility] [address] [place] [address] Parainfluenza 2 Not detected Normal Not Detected [facility] ([place] Comment on above: Performed By: #### M G, GFR, BMP #### [facility] [address] [place] [address] Parainfluenza 3 Not detected Normal Not Detected [facility] ([place] Comment on above: Performed By: #### M G, GFR, BMP #### [place] [address] Parainfluenza 4 Not detected Normal Not Detected [facility] ([place] Comment on above: Performed By: #### M G, GFR, BMP #### [place] [address] Respiratory Syncytial Virus Not detected Normal Not Detected [facility] ([place] Comment on above: Performed By: #### M G, GFR, BMP #### [place] [address] Rhinovirus/Enterovirus Not detected Normal Not Detected [facility] ([place] Comment on above: Performed By: #### M G, GFR, BMP #### [place] [address] SARS-CoV-2 (COVID-19) RNA MADISON+probe Ql (Unsp spec) Not detected Normal Not Detected [facility] ([place] Comment on above: Result Comment: This test is being used under the FDA EUA procedure. This assay has been validated in the [facility] for use with nasopharyngeal specimens in [facility] If a non-validated specimen or test collection [...] By: #### M G, GFR, BMP #### [place] [address] VANCRon 09-17-2022 LDose Vancomycin: (random) See eMAR Normal [facility] ([place] Comment on above: Performed By: #### A PTT #### [place] [address] Vancomycin Lvl (random) 27.2 mcg/mL Normal [facility] ([place]) Comment on above: Performed By: #### A PTT #### [place] [address] XR CHEST 1 VIEWon 09-17-2022 XR CHEST [...] 09/17/2022 7:50:15 AM Ordering Provider: ADRIENNE Smith [facility] ([place]) .Auto Diffon 09-16-2022 Basophil, Absolute 0.1 10 3/mcL Normal 0.0-0.3 [facility] ([place] Comment on above: Performed By: #### Diamond Ortega GFR, BMP #### [address] [address] Basophils/100 WBC (Bld) 0.7 % Normal 0.0-2.5 A [facility] ([place]) Comment on above: Performed By: #### Diamond Ortega GFR, BMP #### [address] [address] Eosinophil, Absolute 0.0 10 3/mcL Normal 0.0-0.7 [facility] ([place]) Comment on above: Performed By: #### Diamond Ortega GFR, BMP #### [address] [address] Eosinophils/100 WBC (Bld) 0.1 % Normal 0.0-6.0 [facility] ([place]) Comment on above: Performed By: #### Diamond Ortega GFR, BMP #### [address] [address] Lymphocyte, Absolute 1.2 10 3/mcL Normal 0.9-4.3 [facility] ([place] Comment on above: Performed By: #### Diamond Ortega GFR, BMP #### [address] [address] Lymphocytes/100 WBC (Bld) 6.4 % Low 20.0-40.0 [facility] ([place]) Comment on above: Performed By: #### Diamond Ortega GFR, BMP #### [address] [address] Monocyte, Absolute 1.4 10 3/mcL Normal 0.1-1.4 [facility] ([place] Comment on above: Performed By: #### M G, GFR, BMP #### [address] [address] Monocytes/100 WBC (Bld) 8.0 % Normal 2.0-13.0 A [facility] ([place] Comment on above: Performed By: #### M G, GFR, BMP #### [address] [address] Neutrophils/100 WBC (Bld) 84.8 % High 50.0-75.0 [facility] ([place]) Comment on above: Performed By: #### M G, GFR, BMP #### [address] [address] Basophil, Absolute 0.1 10 3/mcL Normal 0.0-0.3 [facility] ([place] Comment on above: Performed By: #### H FP, CBC, ANEU, ADIFF #### [address] [address] Basophils/100 WBC (Bld) 0.5 % Normal 0.0-2.5 A [facility] ([place] Comment on above: Performed By: #### H FP, CBC, ANEU, ADIFF #### [address] [address] Eosinophil, Absolute 0.1 10 3/mcL Normal 0.0-0.7 [facility] ([place] Comment on above: Performed By: #### H FP, CBC, ANEU, ADIFF #### [address] [address] Eosinophils/100 WBC (Bld) 0.2 % Normal 0.0-6.0 [facility] ([place]) Comment on above: Performed By: #### H FP, CBC, ANEU, ADIFF #### [address] [address] Lymphocyte, Absolute 1.7 10 3/mcL Normal 0.9-4.3 [facility] ([place] Comment on above: Performed By: #### H FP, CBC, ANEU, ADIFF #### [address] [address] Lymphocytes/100 WBC (Bld) 6.5 % Low 20.0-40.0 [facility] ([place] Comment on above: Performed By: #### H FP, CBC, ANEU, ADIFF #### [address] [address] Monocyte, Absolute 1.3 10 3/mcL Normal 0.1-1.4 [facility] ([place] Comment on above: Performed By: #### H FP, CBC, ANEU, ADIFF #### [address] [address] Monocytes/100 WBC (Bld) 4.7 % Normal 2.0-13.0 A [facility] [place] Comment on above: Performed By: #### H FP, CBC, ANEU, ADIFF #### [address] [address] Neutrophils/100 WBC (Bld) 88.1 % High 50.0-75.0 [facility] ([place] Comment on above: Performed By: #### H FP, CBC, ANEU, ADIFF #### [address] [address] Basophil, Absolute 0.1 10 3/mcL Normal 0.0-0.3 [facility] ([place] Comment on above: Performed By: #### H FP, CBC, ANEU, ADIFF #### [address] [address] Basophils/100 WBC (Bld) 0.3 % Normal 0.0-2.5 A [facility] ([place] Comment on above: Performed By: #### H FP, CBC, ANEU, ADIFF #### [address] [address] Eosinophil, Absolute 0.0 10 3/mcL Normal 0.0-0.7 [facility] ([place] Comment on above: Performed By: #### H FP, CBC, ANEU, ADIFF #### [address] [address] Eosinophils/100 WBC (Bld) 0.1 % Normal 0.0-6.0 [facility] ([place] Comment on above: Performed By: #### H FP, CBC, ANEU, ADIFF #### [address] [address] Lymphocyte, Absolute 0.6 10 3/mcL Low 0.9-4.3 [facility] ([place] Comment on above: Performed By: #### H FP, CBC, ANEU, ADIFF #### [address] [address] Lymphocytes/100 WBC (Bld) 2.8 % Low 20.0-40.0 [facility] ([place] Comment on above: Performed By: #### H FP, CBC, ANEU, ADIFF #### [address] [address] Monocyte, Absolute 1.2 10 3/mcL Normal 0.1-1.4 [facility] [place] Comment on above: Performed By: #### H FP, CBC, ANEU, ADIFF #### [address] [address] Monocytes/100 WBC (Bld) 5.6 % Normal 2.0-13.0 A [facility] ([place]) Comment on above: Performed By: #### H FP, CBC, ANEU, ADIFF #### [address] [address] Neutrophils/100 WBC (Bld) 91.2 % High 50.0-75.0 [facility] ([place] Comment on above: Performed By: #### H FP, CBC, ANEU, ADIFF #### [address] [address] .GFRon 09-16-2022 GFR 55 ml/min/1.73sqm Normal [facility] ([place] Comment on above: Result Comment: GFR Population [...] By: #### M G, GFR, BMP #### [address] [address] GFR Non- 45 ml/min/1.73sqm Normal [facility] ([place] Comment on above: Result Comment: GFR Population [...] By: #### Diamond G, GFR, BMP #### [address] [address] GFR >60 Normal [facility] [place] Comment on above: Result Comment: GFR Population [...] #### H FP, CBC, ANEU, ADIFF #### [address] [address] GFR Non- 57 ml/min/1.73sqm Normal [facility] ([place] Comment on above: Result Comment: GFR Population [...] #### H FP, CBC, ANEU, ADIFF #### [address] [address] GFR Non- >60 Normal [facility] ([place] Comment on above: Result Comment: GFR Population [...] #### H FP, CBC, ANEU, ADIFF #### [address] [address] GFR >60 Normal [facility] [place] Comment on above: Result Comment: GFR Population [...] #### H FP, CBC, ANEU, ADIFF #### [place] [address] .MDWon 09-16-2022 Monocyte Distribution Width 16.92 Normal 0.00-20.00 [facility] ([place] Comment on above: Result Comment: For ED adult patients suspected of sepsis, MDW<=20.0 does not rule out sepsis or risk of sepsis Performed By: #### H FP, CBC, ANEU, ADIFF #### [place] [address] .Manual Diffon 09-16-2022 Basophil %, Manual 0.0 % Normal 0.0-2.5 [facility] [place] Comment on above: Performed By: #### H FP, CBC, ANEU, ADIFF #### [place] [address] Basophil, Abs Manual 0.0 10 3/mcL Normal 0.0-0.3 [facility] [place] Comment on above: Performed By: #### H FP, CBC, ANEU, ADIFF #### [place] [address] Eosinophil %, Manual 0.0 % Normal 0.0-6.0 [facility] [place] Comment on above: Performed By: #### H FP, CBC, ANEU, ADIFF #### [place] [address] Eosinophil, Abs Manual 0.0 10 3/mcL Normal 0.0-0.7 [facility] ([place] Comment on above: Performed By: #### H FP, CBC, ANEU, ADIFF #### [place] [address] Lymphocyte %, Manual 5.0 % Low 20.0-40.0 [facility] [place] Comment on above: Performed By: #### H FP, CBC, ANEU, ADIFF #### [address] [address] Lymphocyte, Abs Manual 1.4 10 3/mcL Normal 0.9-4.3 [facility] ([place] Comment on above: Performed By: #### H FP, CBC, ANEU, ADIFF #### [address] [address] Monocyte %, Manual 6.0 % Normal 2.0-13.0 [facility] [place] Comment on above: Performed By: #### H FP, CBC, ANEU, ADIFF #### [address] [address] Monocyte, Abs Manual 1.6 10 3/mcL High 0.1-1.4 [facility] [place] Comment on above: Performed By: #### H FP, CBC, ANEU, ADIFF #### [address] [address] Neutrophil %, Manual 89.0 % High 50.0-75.0 [facility] [place] Comment on above: Performed By: #### H FP, CBC, ANEU, ADIFF #### [address] [address] Neutrophil, Abs Manual 24.0 10 3/mcL High 2.3-8.1 [facility] ([place] Comment on above: Performed By: #### H FP, CBC, ANEU, ADIFF #### [address] [address] Nucleated RBC 0.0 /100 WBC Normal [facility] ([place] Comment on above: Performed By: #### H FP, CBC, ANEU, ADIFF #### [address] [address] .Morphon 09-16-2022 Large Platelets Few Normal [facility] [place] Comment on above: Performed By: #### H FP, CBC, ANEU, ADIFF #### [address] [address] Platelet Estimate Normal Normal [facility] ([place] Comment on above: Performed By: #### H FP, CBC, ANEU, ADIFF #### [address] [address] RBC morphology finding Nom (Bld) See Below Normal [facility] ([place] Comment on above: Result Comment: RBC Morphology appears Normal Performed By: #### H FP, CBC, ANEU, ADIFF #### [address] [address] .NEUABSon 09-16-2022 Neutrophil, Absolute 15.2 10 3/mcL High 2.3-8.1 A [facility] [place] Comment on above: Performed By: #### M G, GFR, BMP #### [address] [address] Neutrophil, Absolute 23.8 10 3/mcL High 2.3-8.1 A [facility] [place] Comment on above: Performed By: #### H FP, CBC, ANEU, ADIFF #### [place] [id number] Neutrophil, Absolute 19.5 10 3/mcL High 2.3-8.1 A [facility] ([place] Comment on above: Performed By: #### H FP, CBC, ANEU, ADIFF #### [address] [address] ABO/Rh (Gel)on 09-16-2022 ABO/Rh Interp Positive Invalid Interpretation Code [facility] ([place]) Comment on above: Performed By: #### H FP, CBC, ANEU, ADIFF #### [address] [address] ABS (Gel)on 09-16-2022 ABSC Interp (Gel) Negative Normal [facility] ([place]) Comment on above: Performed By: #### H FP, CBC, ANEU, ADIFF #### [address] [address] APTTon 09-16-2022 aPTT Coag (Bld) [Time] 32.9 s Normal 25.0-35.0 formerly [facility] ([place]) Comment on above: Result Comment: For Heparin anticoagulation therapy, the recommended therapeutic range is: 54-77 seconds (APTT Correlation with Anti-Xa therapeutic range of 0.3-0.7 units/ml). PLEASE REFERENCE THE PHARMACY PROTOCOL FOR DOSING. Performed By: #### H FP, CBC, ANEU, ADIFF #### [address] [address] Heparin dose (APTT) Unknown Normal [facility] ([place]) Comment on above: Performed By: #### H FP, CBC, ANEU, ADIFF #### [address] [address] BGon 09-16-2022 Barometric Pressure 732 mmHg Normal [facility] ([place]) Comment on above: Performed By: #### M Jordan, GFR, BMP #### [address] [address] Base excess Calc (Bld) [Moles/Vol] -0.5000 mmol/L Normal [facility] ([place]) Comment on above: Performed By: #### M G, GFR, BMP #### [address] [address] CO2 [Moles/Vol] 27.8 mmol/L Normal 22.0-30.0 [facility] ([place]) Comment on above: Performed By: #### M G, GFR, BMP #### [address] [address] HCO3 (Bld) [Moles/Vol] 26.2 mmol/L Normal 21.0-29.0 A [facility] ([place]) Comment on above: Performed By: #### M G, GFR, BMP #### [address] [address] Oxygen (Bld) [Partial pressure] 78.7 mm[Hg] Normal 74.0-108.0 [facility] ([place]) Comment on above: Performed By: #### M G, GFR, BMP #### [address] [address] Oxygen saturation in Blood 94.7 % Normal 92.0-96.0 [facility] ([place] Comment on above: Performed By: #### M G, GFR, BMP #### [address] [address] pCO2 51.1 mmHg High 32.0-46.0 [facility] ([place]) Comment on above: Performed By: #### M G, GFR, BMP #### [address] [address] pH (Bld) 7.328 [pH] Low 7.380-7.460 [facility] ([place]) Comment on above: Performed By: #### M G, GFR, BMP #### [address] [address] Barometric Pressure 733 mmHg Normal [facility] ([place] Comment on above: Performed By: #### A PTT #### [place] [id number] Base excess Calc (Bld) [Moles/Vol] -3.2000 mmol/L Normal [facility] ([place]) Comment on above: Performed By: #### A PTT #### [address] [address] CO2 [Moles/Vol] 30.7 mmol/L High 22.0-30.0 [facility] ([place]) Comment on above: Performed By: #### A PTT #### [address] [address] HCO3 (Bld) [Moles/Vol] 28.1 mmol/L Normal 21.0-29.0 A [facility] ([place] Comment on above: Performed By: #### A PTT #### [address] [address] Oxygen (Bld) [Partial pressure] 110.6 mm[Hg] High 74.0-108.0 [facility] ([place]) Comment on above: Performed By: #### A PTT #### [address] [address] Oxygen saturation in Blood 96.4 % High 92.0-96.0 [facility] ([place] Comment on above: Performed By: #### A PTT #### [address] [address] pCO2 83.2 mmHg Critically abnormal 32.0-46.0 [facility] ([place] Comment on above: Performed By: #### A PTT #### [address] [address] pH (Bld) 7.147 [pH] Critically abnormal 7.380-7.460 [facility] ([place]) Comment on above: Performed By: #### A PTT #### [address] [address] BMPon 09-16-2022 BUN/Creatinine Ratio 10.0 ratio Normal 10.0-22.0 [facility] ([place]) Comment on above: Performed By: #### M G, GFR, BMP #### [place] [id number] Calcium [Mass/Vol] 8.1 mg/dL Low 8.7-10.4 [facility] ([place]) Comment on above: Performed By: #### M G, GFR, BMP #### [place] [id number] Chloride [Moles/Vol] 105 mmol/L Normal 98-110 [facility] ([place] Comment on above: Performed By: #### M Jordan, GFR, BMP #### [place] [id number] CO2 [Moles/Vol] 29 mmol/L Normal 22-32 [facility] ([place] Comment on above: Performed By: #### M G, GFR, BMP #### [place] [id number] Creatinine [Mass/Vol] 1.60 mg/dL High 0.60-1.40 [facility] ([place]) Comment on above: Performed By: #### M G, GFR, BMP #### [address] [address] Electrolyte Balance 5.0 mEq/L Normal 4.0-15.0 [facility] ([place] Comment on above: Performed By: #### M G, GFR, BMP #### [address] [address] Glucose [Mass/Vol] 240 mg/dL High 70-110 [facility] ([place] Comment on above: Performed By: #### Diamond Ortega, GFR, BMP #### [address] [address] Potassium [Moles/Vol] 3.5 mmol/L Normal 3.5-5.0 [facility] ([place]) Comment on above: Result Comment: Spec imen slightly hemolyzed. Performed By: #### Diamond Ortega, GFR, BMP #### [address] [address] Sodium [Moles/Vol] 139 mmol/L Normal 136-145 [facility] ([place] Comment on above: Performed By: #### Diamond Ortega, GFR, BMP #### [address] [address] Urea nitrogen [Mass/Vol] 16.0 mg/dL Normal 8.0-22.0 [facility] ([place]) Comment on above: Performed By: #### Diamond Ortega, GFR, BMP #### [address] [address] BUN/Creatinine Ratio 9.2 ratio Low 10.0-22.0 [facility] ([place] Comment on above: Performed By: #### H FP, CBC, ANEU, ADIFF #### [address] [address] Calcium [Mass/Vol] 8.6 mg/dL Low 8.7-10.4 [facility] ([place] Comment on above: Performed By: #### H FP, CBC, ANEU, ADIFF #### [address] [address] Chloride [Moles/Vol] 98 mmol/L Normal 98-110 [facility] ([place] Comment on above: Performed By: #### H FP, CBC, ANEU, ADIFF #### [address] [address] CO2 [Moles/Vol] 32 mmol/L Normal 22-32 [facility] ([place] Comment on above: Performed By: #### H FP, CBC, ANEU, ADIFF #### [address] [address] Creatinine [Mass/Vol] 1.31 mg/dL Normal 0.60-1.40 [facility] ([place] Comment on above: Performed By: #### H FP, CBC, ANEU, ADIFF #### [address] [address] Electrolyte Balance 2.0 mEq/L Low 4.0-15.0 [facility] ([place] Comment on above: Performed By: #### H FP, CBC, ANEU, ADIFF #### [address] [address] Glucose [Mass/Vol] 510 mg/dL Critically abnormal 70-110 [facility] ([place]) Comment on above: Performed By: #### H FP, CBC, ANEU, ADIFF #### [address] [address] Potassium [Moles/Vol] 7.0 mmol/L Critically abnormal 3.5-5.0 [facility] ([place]) Comment on above: Performed By: #### H FP, CBC, ANEU, ADIFF #### [address] [address] Sodium [Moles/Vol] 132 mmol/L Low 136-145 [facility] ([place] Comment on above: Performed By: #### H FP, CBC, ANEU, ADIFF #### [address] [address] Urea nitrogen [Mass/Vol] 12.0 mg/dL Normal 8.0-22.0 [facility] ([place]) Comment on above: Performed By: #### H FP, CBC, ANEU, ADIFF #### [address] [address] CBCon 09-16-2022 Erythrocyte distribution width (RBC) [Ratio] 13.7 % Normal 11.5-15.5 [facility] ([place]) Comment on above: Performed By: #### M G, GFR, BMP #### [address] [address] Hematocrit (Bld) [Volume fraction] 39.0 % Low 40.0-52.0 [facility] ([place]) Comment on above: Performed By: #### Diamond G, GFR, BMP #### [place] [address] Hgb 12.9 G/dL Low 13.0-17.5 [facility] ([place]) Comment on above: Performed By: #### Diamond G, GFR, BMP #### [address] [address] MCH (RBC) [Entitic mass] 29.0 pg Normal 27.0-33.0 [facility] ([place]) Comment on above: Performed By: #### Diamond Ortega, GFR, BMP #### [place] [address] MCHC 33.0 G/dL Normal 32.0-36.0 [facility] ([place]) Comment on above: Performed By: #### Diamond Ortega, GFR, BMP #### [place] [address] MCV (RBC) [Entitic vol] 88.0 fL Normal 81.0-100.0 A [facility] ([place]) Comment on above: Performed By: #### Diamond Ortega, GFR, BMP #### [place] [address] Platelet 310 10 3/mcL Normal 150-450 [facility] ([place]) Comment on above: Performed By: #### Diamond G, GFR, BMP #### [place] [address] Platelet mean volume (Bld) [Entitic vol] 9.5 fL Normal 6.4-10.5 [facility] ([place]) Comment on above: Performed By: #### Diamond G, GFR, BMP #### [place] [address] RBC 4.43 10 6/mcL Low 4.50-6.00 [facility] ([place]) Comment on above: Performed By: #### Diamond G, GFR, BMP #### [place] [address] WBC 17.9 10 3/mcL High 4.5-10.8 [facility] ([place]) Comment on above: Performed By: #### M G, GFR, BMP #### [place] [address] Erythrocyte distribution width (RBC) [Ratio] 14.1 % Normal 11.5-15.5 [facility] ([place]) Comment on above: Performed By: #### H FP, CBC, ANEU, ADIFF #### [place] [id number] Hematocrit (Bld) [Volume fraction] 46.5 % Normal 40.0-52.0 [facility] ([place] Comment on above: Performed By: #### H FP, CBC, ANEU, ADIFF #### [place] [address] Hgb 14.9 G/dL Normal 13.0-17.5 [facility] ([place] Comment on above: Performed By: #### H FP, CBC, ANEU, ADIFF #### [place] [id number] MCH (RBC) [Entitic mass] 28.6 pg Normal 27.0-33.0 [facility] ([place] Comment on above: Performed By: #### H FP, CBC, ANEU, ADIFF #### [place] [address] MCHC 32.1 G/dL Normal 32.0-36.0 [facility] ([place] Comment on above: Performed By: #### H FP, CBC, ANEU, ADIFF #### [place] [id number] MCV (RBC) [Entitic vol] 89.0 fL Normal 81.0-100.0 A [facility] ([place] Comment on above: Performed By: #### H FP, CBC, ANEU, ADIFF #### [place] [id number] Platelet 294 10 3/mcL Normal 150-450 [facility] ([place] Comment on above: Performed By: #### H FP, CBC, ANEU, ADIFF #### [place] [address] Platelet mean volume (Bld) [Entitic vol] 10.0 fL Normal 6.4-10.5 [facility] ([place] Comment on above: Performed By: #### H FP, CBC, ANEU, ADIFF #### [place] [address] RBC 5.22 10 6/mcL Normal 4.50-6.00 [facility] ([place] Comment on above: Performed By: #### H FP, CBC, ANEU, ADIFF #### [place] [address] WBC 21.4 10 3/mcL High 4.5-10.8 [facility] ([place]) Comment on above: Performed By: #### H FP, CBC, ANEU, ADIFF #### [place] [address] Erythrocyte distribution width (RBC) [Ratio] 13.8 % Normal 11.5-15.5 [facility] ([place] Comment on above: Performed By: #### H FP, CBC, ANEU, ADIFF #### [place] [address] Hematocrit (Bld) [Volume fraction] 46.6 % Normal 40.0-52.0 [facility] ([place] Comment on above: Performed By: #### H FP, CBC, ANEU, ADIFF #### [place] [address] Hgb 15.2 G/dL Normal 13.0-17.5 [facility] ([place] Comment on above: Performed By: #### H FP, CBC, ANEU, ADIFF #### [address] [address] MCH (RBC) [Entitic mass] 29.3 pg Normal 27.0-33.0 [facility] ([place] Comment on above: Performed By: #### H FP, CBC, ANEU, ADIFF #### [address] [address] MCHC 32.7 G/dL Normal 32.0-36.0 [facility] ([place] Comment on above: Performed By: #### H FP, CBC, ANEU, ADIFF #### [address] [address] MCV (RBC) [Entitic vol] 89.7 fL Normal 81.0-100.0 A [facility] ([place]) Comment on above: Performed By: #### H FP, CBC, ANEU, ADIFF #### [address] [address] Platelet 348 10 3/mcL Normal 150-450 [facility] ([place] Comment on above: Performed By: #### H FP, CBC, ANEU, ADIFF #### [address] [address] Platelet mean volume (Bld) [Entitic vol] 10.2 fL Normal 6.4-10.5 [facility] ([place]) Comment on above: Performed By: #### H FP, CBC, ANEU, ADIFF #### [address] [address] RBC 5.19 10 6/mcL Normal 4.50-6.00 [facility] ([place]) Comment on above: Performed By: #### H FP, CBC, ANEU, ADIFF #### [address] [address] WBC 27.0 10 3/mcL High 4.5-10.8 [facility] ([place]) Comment on above: Performed By: #### H FP, CBC, ANEU, ADIFF #### [address] [address] CMPon 09-16-2022 Albumin Level 2.7 G/dL Low 3.2-4.8 [facility] ([place]) Comment on above: Order Comment: hemol yzed...notified ERR-Yan 09/16/2022 13:35:51 EDT Performed By: #### H FP, CBC, ANEU, ADIFF #### [place] [id number] Albumin/Globulin [Mass ratio] 0.6 {ratio} Low 0.9-1.6 [facility] ([place]) Comment on above: Order Comment: hemol yzed...notified [facility] 09/16/2022 13:35:51 EDT Performed By: #### H FP, CBC, ANEU, ADIFF #### [address] [address] ALP [Catalytic activity/Vol] 112 U/L Normal 38-126 [facility] ([place]) Comment on above: Order Comment: hemol yzed...notified [facility] 09/16/2022 13:35:51 EDT Performed By: #### H FP, CBC, ANEU, ADIFF #### [address] [address] ALT [Catalytic activity/Vol] 12 U/L Normal 12-55 [facility] ([place]) Comment on above: Order Comment: hemol yzed...notified [facility] 09/16/2022 13:35:51 EDT Performed By: #### H FP, CBC, ANEU, ADIFF #### [place] [id number] AST [Catalytic activity/Vol] 19 U/L Normal 8-34 [facility] ([place]) Comment on above: Order Comment: hemol yzed...notified [facility] 09/16/2022 13:35:51 EDT Performed By: #### H FP, CBC, ANEU, ADIFF #### [address] [address] Bili Total 0.60 mg/dL Normal 0.20-1.20 [facility] ([place]) Comment on above: Order Comment: hemol yzed...notified [facility] 09/16/2022 13:35:51 EDT Result Comment: Use of this assay is not recommended for patients undergoing treatment with eltrombopag due to the potential for falsely elevated results. Performed By: #### H FP, CBC, ANEU, ADIFF #### [place] [id number] BUN/Creatinine Ratio 10.4 ratio Normal 10.0-22.0 [facility] ([place] Comment on above: Order Comment: hemol yzed...notified [facility] 09/16/2022 13:35:51 EDT Performed By: #### H FP, CBC, ANEU, ADIFF #### [address] [address] Calcium [Mass/Vol] 8.7 mg/dL Normal 8.7-10.4 [facility] [place] Comment on above: Order Comment: hemol yzed...notified [facility] 09/16/2022 13:35:51 EDT Performed By: #### H FP, CBC, ANEU, ADIFF #### [address] [address] Chloride [Moles/Vol] 98 mmol/L Normal 98-110 [facility] [place] Comment on above: Order Comment: hemol yzed...notified [facility] 09/16/2022 13:35:51 EDT Performed By: #### H FP, CBC, ANEU, ADIFF #### [address] [address] CO2 [Moles/Vol] 31 mmol/L Normal 22-32 [facility] ([place] Comment on above: Order Comment: hemol yzed...notified [facility] 09/16/2022 13:35:51 EDT Performed By: #### H FP, CBC, ANEU, ADIFF #### [address] [address] Creatinine [Mass/Vol] 1.15 mg/dL Normal 0.60-1.40 [facility] ([place] Comment on above: Order Comment: hemol yzed...notified [facility] 09/16/2022 13:35:51 EDT Performed By: #### H FP, CBC, ANEU, ADIFF #### [address] [address] Electrolyte Balance 4.0 mEq/L Normal 4.0-15.0 [facility] ([place] Comment on above: Order Comment: hemol yzed...notified [facility] 09/16/2022 13:35:51 EDT Performed By: #### H FP, CBC, ANEU, ADIFF #### [address] [address] Globulin 4.4 G/dL High 1.5-3.8 [facility] ([place] Comment on above: Order Comment: hemol yzed...notified [facility] 09/16/2022 13:35:51 EDT Performed By: #### H FP, CBC, ANEU, ADIFF #### [address] [address] Glucose [Mass/Vol] 514 mg/dL Critically abnormal 70-110 [facility] ([place] Comment on above: Order Comment: hemol yzed...notified [facility] 09/16/2022 13:35:51 EDT Performed By: #### H FP, CBC, ANEU, ADIFF #### [address] [address] Potassium [Moles/Vol] 5.5 mmol/L High 3.5-5.0 [facility] ([place] Comment on above: Order Comment: hemol yzed...notified [facility] 09/16/2022 13:35:51 EDT Result Comment: Spec imen slightly hemolyzed. Performed By: #### H FP, CBC, ANEU, ADIFF #### [address] [address] Sodium [Moles/Vol] 133 mmol/L Low 136-145 [facility] [place] Comment on above: Order Comment: hemol yzed...notified [facility] 09/16/2022 13:35:51 EDT Performed By: #### H FP, CBC, ANEU, ADIFF #### [address] [address] Total Protein 7.1 G/dL Normal 5.7-8.2 [facility] ([place]) Comment on above: Order Comment: hemol yzed...notified [facility] 09/16/2022 13:35:51 EDT Result Comment: No te - New Reference Range in effect 19 Performed By: #### H FP, CBC, ANEU, ADIFF #### [address] [address] Urea nitrogen [Mass/Vol] 12.0 mg/dL Normal 8.0-22.0 [facility] ([place]) Comment on above: Order Comment: hemol yzed...notified [facility] 09/16/2022 13:35:51 EDT Performed By: #### H FP, CBC, ANEU, ADIFF #### [address] [address] GLUon 09-16-2022 Glucose [Mass/Vol] 295 mg/dL High 70-110 [facility] [place] Comment on above: Performed By: #### H FP, CBC, ANEU, ADIFF #### [address] [address] HFPon 09-16-2022 Bili Indirect 0.3 mg/dL Normal 0.1-10.0 [facility] ([place]) Comment on above: Performed By: #### M G, GFR, BMP #### [place] [address] Albumin Level 2.0 G/dL Low 3.2-4.8 [facility] ([place]) Comment on above: Performed By: #### M G, GFR, BMP #### [place] [id number] Albumin/Globulin [Mass ratio] 0.6 {ratio} Low 0.9-1.6 [facility] ([place]) Comment on above: Performed By: #### M G, GFR, BMP #### [address] [address] ALP [Catalytic activity/Vol] 83 U/L Normal 38-126 [facility] ([place]) Comment on above: Performed By: #### M G, GFR, BMP #### [address] [address] ALT [Catalytic activity/Vol] 11 U/L Low 12-55 [facility] ([place]) Comment on above: Performed By: #### M G, GFR, BMP #### [address] [address] AST [Catalytic activity/Vol] 12 U/L Normal 8-34 [facility] ([place]) Comment on above: Performed By: #### M G, GFR, BMP #### [address] [address] Bili Direct 0.1 mg/dL Normal 0.0-0.4 [facility] ([place]) Comment on above: Result Comment: Use of this assay is not recommended for patients undergoing treatment with eltrombopag due to the potential for falsely elevated results. Performed By: #### M G, GFR, BMP #### [place] [id number] Bili Total 0.40 mg/dL Normal 0.20-1.20 [facility] ([place]) Comment on above: Result Comment: Use of this assay is not recommended for patients undergoing treatment with eltrombopag due to the potential for falsely elevated results. Performed By: #### M G, GFR, BMP #### [place] [id number] Globulin 3.1 G/dL Normal 1.5-3.8 [facility] ([place]) Comment on above: Performed By: #### M G, GFR, BMP #### [place] [id number] Total Protein 5.1 G/dL Low 5.7-8.2 [facility] ([place]) Comment on above: Result Comment: No te - New Reference Range in effect 19 Performed By: #### M G, GFR, BMP #### [place] [id number] Albumin Level 2.6 G/dL Low 3.2-4.8 [facility] ([place]) Comment on above: Performed By: #### H FP, CBC, ANEU, ADIFF #### [address] [address] Albumin/Globulin [Mass ratio] 0.6 {ratio} Low 0.9-1.6 [facility] ([place] Comment on above: Performed By: #### H FP, CBC, ANEU, ADIFF #### [address] [address] ALP [Catalytic activity/Vol] 114 U/L Normal 38-126 [facility] ([place]) Comment on above: Performed By: #### H FP, CBC, ANEU, ADIFF #### [address] [address] ALT [Catalytic activity/Vol] 14 U/L Normal 12-55 [facility] ([place]) Comment on above: Performed By: #### H FP, CBC, ANEU, ADIFF #### [address] [address] AST [Catalytic activity/Vol] 19 U/L Normal 8-34 [facility] ([place]) Comment on above: Performed By: #### H FP, CBC, ANEU, ADIFF #### [address] [address] Bili Direct 0.2 mg/dL Normal 0.0-0.4 [facility] ([place]) Comment on above: Result Comment: Use of this assay is not recommended for patients undergoing treatment with eltrombopag due to the potential for falsely elevated results. Performed By: #### H FP, CBC, ANEU, ADIFF #### [address] [address] Bili Indirect 0.4 mg/dL Normal 0.1-10.0 [facility] ([place] Comment on above: Performed By: #### H FP, CBC, ANEU, ADIFF #### [place] [address] Bili Total 0.60 mg/dL Normal 0.20-1.20 [facility] ([place] Comment on above: Result Comment: Use of this assay is not recommended for patients undergoing treatment with eltrombopag due to the potential for falsely elevated results. Performed By: #### H FP, CBC, ANEU, ADIFF #### [address] [address] Globulin 4.0 G/dL High 1.5-3.8 [facility] ([place]) Comment on above: Performed By: #### H FP, CBC, ANEU, ADIFF #### [address] [address] Total Protein 6.6 G/dL Normal 5.7-8.2 [facility] ([place]) Comment on above: Result Comment: No te - New Reference Range in effect 19 Performed By: #### H FP, CBC, ANEU, ADIFF #### [address] [address] HHon 09-16-2022 Hematocrit (Bld) [Volume fraction] 47.0 % Normal 40.0-52.0 [facility] ([place]) Comment on above: Performed By: #### H FP, CBC, ANEU, ADIFF #### [place] [address] Hgb 15.4 G/dL Normal 13.0-17.5 [facility] ([place] Comment on above: Performed By: #### H FP, CBC, ANEU, ADIFF #### [address] [address] [place] 09-16-2022 Potassium [Moles/Vol] 3.5 mmol/L Normal 3.5-5.0 [facility] ([place]) Comment on above: Performed By: #### H FP, CBC, ANEU, ADIFF #### [place] [address] LABORATORYOrdered By: Lucy Jack on 09-16-2022 Lactate [...] Comment on above: Interpretive Data: T peggy [employer] (CHEST, 1992, [id number]) [...] Lactic Acid Lvl 2.9 mmol/L High 0.2-2.0 [facility] ([place]) Comment on above: Performed By: #### M G, GFR, BMP #### [place] [address] Lactic Acid Lvl 1.6 mmol/L Normal 0.2-2.0 [facility] ([place]) Comment on above: Performed By: #### A PTT #### [address] [address] Lactic Acid Lvl 1.8 mmol/L Normal 0.2-2.0 [facility] ([place]) Comment on above: Performed By: #### L AC #### [address] [address] MGon 09-16-2022 Magnesium [Mass/Vol] 1.5 mg/dL Low 1.6-2.4 [facility] ([place] Comment on above: Performed By: #### M G, GFR, BMP #### [address] [address] No Panel InformationOrdered By: Bola Krause on 09-16-2022 Culture Respiratory with Gram Stain Normal respiratory veronica present at 48 hours Sensitivity testing not indicated [facility] Comment on above: Requests for Mycopla sma, Legionella, Fungi, Mycobacteria, Chlamydia, and Viruses require ordering of those individual tests. GS Predominance of poly s 2+ Polymorphonuclear cells 1+ Epithelial cells 2+ Gram Positive Cocci Rare Gram Positive Rods [facility] Comment on above: Requests for Mycopla sma, Legionella, Fungi, Mycobacteria, Chlamydia, and Viruses require ordering of those individual tests. No Panel Informationon 09-16 Microscopic examination of blood, culture Culture has been received in lab and is no growth to date. Routine cultures are held for 5 days. [facility] Work Phone: Microscopic examination of blood, culture Culture has been received in lab and is no growth to date. Routine cultures are held for 5 days. [facility] Work Phone: Culture Urine No growth at 48 hours. [facility] Work Phone: Legionella Urine Ag Presumptive negative for L. pneumophila serogroup 1 antigen in urine, suggesting no recent or current infection. Legionnaire's disease cannot be ruled out since other serogroups and species may also cause disease. [facility] Work Phone: Streptococcus Pneumoniae Urine Antig Presumptive negative for pneumococcal pneumonia, suggesting no current or recent pneumococcal infection. Infection due to Strep pneumoniae cannot be ruled out since the antigen present in the sample may be below the detection limit of the test. [facility] Work Phone: Comment on above: This test has not be en evaluated on patients taking antibiotics for greater than 24 hours or on patients who have recently completed an antibiotic regimen. The accuracy of this test has not been proven in young children. PBNPon 09-16-2022 Natriuretic peptide B (Bld) [Mass/Vol] 5982 pg/mL High 0-900 [facility] ([place] Comment on above: Result Comment: NT-p roBNP results of less than 300 pg/mL effectively rules out acute congestive heart failure with 99% negative predictive value. Performed By: #### H FP, CBC, ANEU, ADIFF #### [address] [address] PROon 09-16-2022 INR Coag (PPP) [Relative time] 0.9 {INR} Normal [facility] ([place]) Comment on above: Result Comment: [employer] [employer] (CHEST, 1992, 102:[id number]) recommended therapeutic range for oral anticoagulant therapy is: LOW RISK: Prophylaxis of venous thrombosis INR: 2.0-3.0 Treatment of pulmonary embolism 2.0-3.0 Prevention of systemic embolism 2.0-3.0 HIGH RISK: Mechanical prosthetic valves 2.5-3.5 Performed By: #### H FP, CBC, ANEU, ADIFF #### [address] [address] PT Coag (PPP) [Time] 10.1 s Normal 9.0-14.8 [facility] ([place]) Comment on above: Result Comment: Effe ctive 08/23/07, Protime results may be affected by some antibiotics (i.e. Ciprofloxacin, Azithromycin, Bactrim) which may potentiate the action of oral anticoagulants, with further increases in Protime/INR. Performed By: #### H FP, CBC, ANEU, ADIFF #### [facility] [address] [place] [address] TROPHSon 09-16-2022 Troponin I High Sensitivity 128.29 ng/L High 0.00-54.00 [facility] ([place]) Comment on above: Result Comment: If t he High Sensitive Troponin result is below the 99th percentile value (<45 ng/L) at the first blood draw, at least two additional blood samples should be drawn before results are interpreted as negative for AMI. Performed By: #### H FP, CBC, ANEU, ADIFF #### [address] [address] Troponin I High Sensitivity 95.03 ng/L High 0.00-54.00 [facility] ([place]) Comment on above: Result Comment: If t he High Sensitive Troponin result is below the 99th percentile value (<45 ng/L) at the first blood draw, at least two additional blood samples should be drawn before results are interpreted as negative for AMI. Performed By: #### H FP, CBC, ANEU, ADIFF #### [address] [address] XR CHEST 1 VIEWon 09-16-2022 XR CHEST [...] 09/16/2022 7:32:44 PM Ordering Provider: MIGUELINA Smith [facility] ([place]) XR CHEST 1 VIEW ORIGINAL EXAMINATION: ONE [...] 09/16/2022 1:25:21 PM Ordering Provider: BASSAM Smith [facility] ([place]) XR ENTERIC TUBE PLACEMENTon 09-16-2022 XR ENTERIC [...] 09/16/2022 1:37:04 PM Ordering Provider: BASSAM Smith [facility] ([place]) Absolute lymphocyte counton 12-09-2021 Lymphocytes Auto (Unsp spec) [#/Vol] 1.11 10*3/uL 0.83-4.51 [facility] Work Phone: Basic Metabolic Profile (BMP )on 12-09-2021 BUN/CRE 10.6 RATIO Normal 10-20 [facility] Comment on above: Performed By: #### L 500.2500, L100.0100 ####[facility] [address] [place], [address] CA,Total 8.6 mg/dL Normal 8.5-10.1 [facility] Comment on above: Performed By: #### L 500.2500, L100.0100 ####[facility] [address] [place], [address] Chloride [Moles/Vol] 107 mmol/L Normal 98-107 [facility] Comment on above: Performed By: #### L 500.2500, L100.0100 ####[facility] [address] [place], [address] CO2 [Moles/Vol] 28.0 mmol/L Normal 21.0-32.0 [facility] Comment on above: Performed By: #### L 500.2500, L100.0100 ####[facility] [address] [place], [address] Creatinine [Mass/Vol] 0.85 mg/dL Normal 0.70-1.[address] [facility] Comment on above: Result Comment: The validity of the calculated GFR GFRAA in patients over 70 years has not been determined. Clinical correlation is essential. Performed By: #### L 500.2500, L100.0100 ####[facility] [address] [place], [address] ECRCL 118.74 ml/min Normal [facility] Comment on above: Performed By: #### L 500.2500, L100.0100 ####[facility] [address] [place], [address] EST GFR - AA 120 mL/min Normal >60 [facility] Comment on above: Result Comment: Afri can Sudanese GFR Calc Performed By: #### L 500.2500, L100.0100 ####[facility] [address] [place], [address] GAP 4 Low 5-15 [facility] Comment on above: Performed By: #### L 500.2500, L100.0100 ####[facility] [address] [place], [address] GFR/1.73 sq M.predicted among non-blacks MDRD (S/P/Bld) [Vol rate/Area] 99 mL/min/{1.73_m2} Normal >60 [facility] Comment on above: Result Comment: Non- GFR Calc Performed By: #### L 500.2500, L100.0100 ####[facility] [address] [place], [address] Glucose [Mass/Vol] 175 mg/dL High 74-106 [facility] Comment on above: Result Comment: Fast ing Glucose result greater than or equal to 126 mg/dL suggests DIABETES MELLITUS per A.D.A. criteria. Performed By: #### L 500.2500, L100.0100 ####[facility] [address] [place], [address] Potassium [Moles/Vol] 3.9 mmol/L Normal 3.5-5.[address] [facility] Comment on above: Performed By: #### L 500.2500, L100.0100 ####[facility] [address] [place], [address] Sodium [Moles/Vol] 139 mmol/L Normal 136-145 [facility] Comment on above: Performed By: #### L 500.2500, L100.0100 ####[facility] [address] [place], [address] Urea nitrogen [Mass/Vol] 9 mg/dL Normal 7-18 [facility] Comment on above: Performed By: #### L 500.2500, L100.0100 ####[facility] [address] [place], [address] Basophil percentageon 2021 Basophils/100 WBC (Bld) 0.5 % 0-1 [facility] Work Phone: Chloride [Moles/Vol] 107 mmol/L 98-107 [facility] Work Phone: Eosinophils/100 WBC (Bld) 1.6 % 0-5 [facility] Work Phone: Glucose [Mass/Vol] 175 mg/dL 74-106 [facility] Work Phone: Comment on above: Fasting Glucose resu lt greater than or equal to 126 mg/dL suggests DIABETES MELLITUS per A.D.A. criteria. Neutrophils (Bld) [#/Vol] 4.4 10*3/uL 2.0-7.7 [facility] Work Phone: Neutrophils/100 WBC (Bld) 70.4 % 47-70 [facility] Work Phone: Potassium [Moles/Vol] 3.9 mmol/L 3.5-5.[address] [facility] Work Phone: Sodium [Moles/Vol] 139 mmol/L 136-145 [facility] Work Phone: WBC (Bld) [#/Vol] 6.2 10*3/uL 4.4-11.0 [facility] Work Phone: Bedside Glucoseon 12-09-2021 FINGERSTICK GLU 153 mg/dL High 74-106 [facility] Comment on above: Result Comment: PIOTR GEMENT OF PATIENT CARE PER NURSING PROTOCOL Performed By: #### L 501.080 #### [facility] [address] [place], [address] FINGERSTICK GLU 264 mg/dL High 74-106 [facility] Comment on above: Result Comment: PIOTR GEMENT OF PATIENT CARE PER NURSING PROTOCOL Performed By: #### L 300.4310 #### [facility] [address] [place], [address] Blood erythrocytes count (nu mber/volume)on 12-09-2021 RBC (Bld) [#/Vol] 4.54 10*6/uL 4.6-6.2 [facility] Work Phone: Blood hemoglobin measurement (mass/volume)on 12-09-2021 Hemoglobin (Bld) [Mass/Vol] 12.2 g/dL 13.0-16.5 [facility] Work Phone: Blood lymphocytes/100 leukoc yteson 12-09-2021 Lymphocytes/100 WBC (Bld) 17.9 % 19-41 [facility] Work Phone: Blood monocytes/100 leukocyt eson 12-09-2021 Monocytes/100 WBC (Bld) 9.4 % 0-10 [facility] Work Phone: Blood platelet mean volumeon 12-09-2021 Platelet mean volume (Bld) [Entitic vol] 11.5 fL 6.2-12.0 [facility] Work Phone: CBC W/Diff, Automatedon 11-0 Absolute Lymph 1.11 X10 3/uL Normal 0.83-4.51 [facility] Comment on above: Performed By: #### L 500.2500, L100.0100 #### [facility] [address] [place], [address] Absolute Neut 4.4 X10 3/uL Normal 2.0-7.7 [facility] Comment on above: Performed By: #### L 500.2500, L100.0100 #### [facility] [address] [place], [address] Basophils/100 WBC (Bld) 0.5 % Normal 0-1 [facility] Comment on above: Performed By: #### L 500.2500, L100.0100 #### [facility] [address] [place], [address] Eosinophils/100 WBC (Bld) 1.6 % Normal 0-5 [facility] Comment on above: Performed By: #### L 500.2500, L100.0100 #### [facility] [address] [place], [address] Erythrocyte distribution width (RBC) [Ratio] 16.3 % High 11.6-14.6 [facility] Comment on above: Performed By: #### L 500.2500, L100.0100 #### [facility] [address] [place], [address] Hematocrit (Bld) [Volume fraction] 37.8 % Low 40-54 [facility] Comment on above: Performed By: #### L 500.2500, L100.0100 #### [facility] [address] [place], [address] Hemoglobin (Bld) [Mass/Vol] 12.2 g/dL Low 13.0-16.5 [facility] Comment on above: Performed By: #### L 500.2500, L100.0100 #### [facility] [address] [place], [address] IG% 0.200 Normal 0.0-0.9 [facility] Comment on above: Result Comment: IG% - Immature Granulocytes (promyelocytes, myelocytes and metamyelocytes) > 1% indicates that a LEFT SHIFT is Present. Performed By: #### L 500.2500, L100.0100 #### [facility] [address] [place], [address] Lymphocytes/100 WBC (Bld) 17.9 % Low 19-41 [facility] Comment on above: Performed By: #### L 500.2500, L100.0100 #### [facility] [address] [place], [address] MCH (RBC) [Entitic mass] 26.9 pg Low 27.0-32.0 [facility] Comment on above: Performed By: #### L 500.2500, L100.0100 #### [facility] [address] [place], [address] MCHC (RBC) [Mass/Vol] 32.3 g/dL Normal 32-[address] [facility] Comment on above: Performed By: #### L 500.2500, L100.0100 #### [facility] [address] [place], [address] MCV (RBC) [Entitic vol] 83.3 fL Normal 80-94 [facility] Comment on above: Performed By: #### L 500.2500, L100.0100 #### [facility] [address] [place], [address] Monocytes/100 WBC (Bld) 9.4 % Normal 0-10 [facility] Comment on above: Performed By: #### L 500.2500, L100.0100 #### [facility] [address] [place], [address] Neutrophils/100 WBC (Bld) 70.4 % High 47-70 [facility] Comment on above: Performed By: #### L 500.2500, L100.0100 #### [facility] [address] [place], [address] Nucleated RBC (Bld) [#/Vol] 0 10*3/uL Normal 0-5 [facility] Comment on above: Performed By: #### L 500.2500, L100.0100 #### [facility] [address] [place], [address] Platelet mean volume (Bld) [Entitic vol] 11.5 fL Normal 6.2-12.0 [facility] Comment on above: Performed By: #### L 500.2500, L100.0100 #### [facility] [address] [place], [address] Platelets (Bld) [#/Vol] 221 10*3/uL Normal 150-450 [facility] Comment on above: Performed By: #### L 500.2500, L100.0100 #### [facility] [address] [place], [address] RBC (Bld) [#/Vol] 4.54 10*6/uL Low 4.6-6.2 [facility] Comment on above: Performed By: #### L 500.2500, L100.0100 #### [facility] [address] [place], [address] RDW SD 49.4 fl High 35.1-43.9 [facility] Comment on above: Performed By: #### L 500.2500, L100.0100 #### [facility] [address] [place], [address] WBC (Bld) [#/Vol] 6.2 10*3/uL Normal 4.4-11.0 [facility] Comment on above: Performed By: #### L 500.2500, L100.0100 #### [facility] [address] [place], [address] Determination of erythrocyte mean corpuscular volume (MCV)on 12-09-2021 MCV (RBC) [Entitic vol] 83.3 fL 80-94 [facility] Work Phone: Discharge Instructionon 11-0 Discharge Instruction [facility] Medical Records Department [address] [place] [address] Instructions for Home/Discharge Instructions 12/09/21 1006 MR#: [id number] Acct: [id number] Name: OLIVER CRAMER II Rep #: [id number] : 1965 56 From: Jesus Aguila MD PCP: [facility] Status:ADM IN Discharge Instructions Diet Discharge Diet: Low fat / Low cholesterol Follow Up Care Test Results: Test results from this visit will be discussed in further detail at your follow-up appointment, if applicable. Discharge Plan Admission Admit Date/Time: 12/06/21 16:22 Primary Reason for Your Visit: Attending Provider: Jesus Aguila Primary Care Provider: [facility] Consulting Providers: Beto Kay ; Kavon Mandel Instructions Additional Instructions / Restrictions: Patient has appointment with [place] quality intern in [place]. He has [place] primary care in [place]. Discharge Orders/Prescriptions Prescriptions: New atorvastatin 80 mg [...] mg PO TID fluticasone propionate 50 mcg/actuation [place],Suspension 2 spray INTRANASAL DAILY ascorbic acid (vitamin [...] Qty: 60 1RF Referrals / Follow Up: [facility] [Primary Care Provider] - Beto Kay MD [Med Staff - Active Staff] - Within 1 Month (If patient not able to see his quality intern) Francisco Eid MD [Non-Staff -Ordering Privileges] - Within 2 Weeks Disposition Disposition (needs filled in before D/C Order can be placed): Home Health Service 12/09/21 1015 Jesus Aguila MD CC: Dr. Kavon Mandel MD; Dr. Beto Kay MD; [facility] Signed Normal [facility] Glucose Glucometer (BldC) [M ass/Vol]on 12-09-2021 Glucose [Mass/Vol] 153 mg/dL 74-106 [facility] Work Phone: Comment on above: MANAGEMENT OF PATIEN T CARE PER NURSING PROTOCOL Hematocrit Auto (Bld) [Volum e fraction]on 12-09-2021 Hematocrit (Bld) [Volume fraction] 37.8 % 40-54 [facility] Work Phone: Laboratory - Chemistry and C hemistry - challengeon 12-09-2021 CO2 [Moles/Vol] 28.0 mmol/L 21.0-32.0 [facility] Work Phone: [phone] Urea nitrogen/Creatinine [Mass ratio] 10.6 mg/mg 10-20 [facility] Work Phone: Laboratory - Coagulationon 1 02-08-2021 aPTT Coag (Bld) [Time] 29.4 s 24.1-36.2 [facility] Work Phone: [phone] Laboratory - Hematology and Cell countson 12-09-2021 Erythrocyte distribution width (RBC) [Entitic vol] 49.4 fL 35.1-43.9 [facility] Work Phone: Erythrocyte distribution width (RBC) [Ratio] 16.3 % 11.6-14.6 [facility] Work Phone: [phone] Immature granulocytes/100 WBC (Bld) 0.200 % 0.0-0.9 [facility] Work Phone: Comment on above: IG% - Immature Granu locytes (promyelocytes, myelocytes and metamyelocytes) > 1% indicates that a LEFT SHIFT is Present. MCH (RBC) [Entitic mass] 26.9 pg 27.0-32.0 [facility] Work Phone: Nucleated RBC/100 WBC (Bld) [Ratio] 0 % 0-5 [facility] Work Phone: [phone] MCHC Auto (RBC) [Mass/Vol]on 12-09-2021 MCHC (RBC) [Mass/Vol] 32.3 g/dL 32-[address] [facility] Work Phone: [phone] No Panel Informationon 12-09 Estimated Creatinine Clearance Calc 118.74 ml/min [facility] Work Phone: Estimated GFR (MDRD) Amer 120 mL/min >60 [facility] Work Phone: Comment on above: GFR Calc Estimated GFR (MDRD) Non-Af Amer 99 mL/min >60 [facility] Work Phone: Comment on above: Non- GFR Calc Partial Thromboplast Timeon 12-09-2021 aPTT Coag (Bld) [Time] 29.4 s Normal 24.1-36.2 [facility] Comment on above: Performed By: #### L [id number] #### [facility] [address] [place], [address] Platelets bldon 12-09-2021 Platelets (Bld) [#/Vol] 221 10*3/uL 150-450 [facility] Work Phone: [phone] Serum or plasma calcium enmanuel urement (mass/volume)on 12-09-2021 Calcium [Mass/Vol] 8.6 mg/dL 8.5-10.1 [facility] Work Phone: [phone] Serum or plasma creatinine m easurement (mass/volume)on 12-09-2021 Creatinine [Mass/Vol] 0.85 mg/dL 0.70-1.[address] [facility] Work Phone: [phone] Comment on above: The validity of the calculated GFR & GFRAA in patients over 70 years has not been determined. Clinical correlation is essential. Serum or plasma urea nitroge n measurement (mass/volume)on 12-09-2021 Urea nitrogen [Mass/Vol] 9 mg/dL 7-18 [facility] Work Phone: Thin prep Papanicolaou smear with manual screeningon 12-09-2021 Thin prep Papanicolaou smear with manual screening 4 5-15 [facility] Work Phone: Basic Metabolic Profile (BMP )on 12-08-2021 BUN/CRE 11.8 RATIO Normal 10-20 [facility] Comment on above: Performed By: #### L 501.5200, L500.2500, L100.0100 ####[facility] [address] [place], [address] CA,Total 7.9 mg/dL Low 8.5-10.1 [facility] Comment on above: Performed By: #### L 501.5200, L500.2500, L100.0100 ####[facility] [address] [place], [address] Chloride [Moles/Vol] 104 mmol/L Normal 98-107 [facility] Comment on above: Performed By: #### L 501.5200, L500.2500, L100.0100 ####[facility] [address] [place], [address] CO2 [Moles/Vol] 28.0 mmol/L Normal 21.0-32.0 [facility] Comment on above: Performed By: #### L 501.5200, L500.2500, L100.0100 ####[facility] [address] [place], [address] Creatinine [Mass/Vol] 0.93 mg/dL Normal 0.70-1.[address] [facility] Comment on above: Result Comment: The validity of the calculated GFR GFRAA in patients over 70 years has not been determined. Clinical correlation is essential. Performed By: #### L 501.5200, L500.2500, L100.0100 ####[facility] [address] [place], [address] ECRCL 108.53 ml/min Normal [facility] Comment on above: Performed By: #### L 501.5200, L500.2500, L100.0100 ####[facility] [address] [place], [address] EST GFR - AA 108 mL/min Normal >60 [facility] Comment on above: Result Comment: Afri can Sudanese GFR Calc Performed By: #### L 501.5200, L500.2500, L100.0100 ####[facility] [address] [place], [address] GAP 6 Normal 5-15 [facility] Comment on above: Performed By: #### L 501.5200, L500.2500, L100.0100 ####[facility] [address] [place], [address] GFR/1.73 sq M.predicted among non-blacks MDRD (S/P/Bld) [Vol rate/Area] 89 mL/min/{1.73_m2} Normal >60 [facility] Comment on above: Result Comment: Non- GFR Calc Performed By: #### L 501.5200, L500.2500, L100.0100 ####[facility] [address] [place], [address] Glucose [Mass/Vol] 255 mg/dL High 74-106 [facility] Comment on above: Result Comment: Gluc ose result greater than or equal to 200 mg/dL suggests DIABETES MELLITUS per A.D.A. criteria. Performed By: #### L 501.5200, L500.2500, L100.0100 ####[facility] [address] [place], [address] Potassium [Moles/Vol] 3.4 mmol/L Low 3.5-5.[address] [facility] Comment on above: Performed By: #### L 501.5200, L500.2500, L100.0100 ####[facility] [address] [place], [address] Sodium [Moles/Vol] 138 mmol/L Normal 136-145 [facility] Comment on above: Performed By: #### L 501.5200, L500.2500, L100.0100 ####[facility] [address] [place], [address] Urea nitrogen [Mass/Vol] 11 mg/dL Normal 7-18 [facility] Comment on above: Performed By: #### L 501.5200, L500.2500, L100.0100 ####[facility] [address] [place], [address] Basophil percentageon 2021 Basophil percentage 2.8 mg/dL 2.5-4.9 [facility] Work Phone: Bedside Glucoseon 12-08-2021 FINGERSTICK GLU 273 mg/dL High 74-106 [facility] Comment on above: Result Comment: PIOTR GEMENT OF PATIENT CARE PER NURSING PROTOCOL Performed By: #### L 501.080 ####[facility] [address] [place], [address] FINGERSTICK GLU 265 mg/dL High 74-106 [facility] Comment on above: Result Comment: PIOTR GEMENT OF PATIENT CARE PER NURSING PROTOCOL Performed By: #### L 501.080 ####[facility] [address] [place], [address] FINGERSTICK GLU 192 mg/dL High 74-106 [facility] Comment on above: Result Comment: PIOTR GEMENT OF PATIENT CARE PER NURSING PROTOCOL Performed By: #### L 501.080 ####[facility] [address] [place], [address] FINGERSTICK GLU 271 mg/dL High 74-106 [facility] Comment on above: Result Comment: PIOTR [place] OF PATIENT CARE PER NURSING PROTOCOL Performed By: #### L 501.080 #### [facility] [address] [place], [address] CBC W/Diff, Automatedon 10-3 Absolute Lymph 1.42 X10 3/uL Normal 0.83-4.51 [facility] Comment on above: Performed By: #### L 501.5200, L500.2500, L100.0100 ####[facility] [address] [place], [address] Absolute Neut 4.2 X10 3/uL Normal 2.0-7.7 [facility] Comment on above: Performed By: #### L 501.5200, L500.2500, L100.0100 ####[facility] [address] [place], [address] Basophils/100 WBC (Bld) 0.5 % Normal 0-1 [facility] Comment on above: Performed By: #### L 501.5200, L500.2500, L100.0100 ####[facility] [address] [place], [address] Eosinophils/100 WBC (Bld) 0.9 % Normal 0-5 [facility] Comment on above: Performed By: #### L 501.5200, L500.2500, L100.0100 ####[facility] [address] [place], [address] Erythrocyte distribution width (RBC) [Ratio] 16.5 % High 11.6-14.6 [facility] Comment on above: Performed By: #### L 501.5200, L500.2500, L100.0100 ####[facility] [address] [place], [address] Hematocrit (Bld) [Volume fraction] 37.0 % Low 40-54 [facility] Comment on above: Performed By: #### L 501.5200, L500.2500, L100.0100 ####[facility] [address] [place], [address] Hemoglobin (Bld) [Mass/Vol] 12.0 g/dL Low 13.0-16.5 [facility] Comment on above: Performed By: #### L 501.5200, L500.2500, L100.0100 ####[facility] [address] [place], [address] IG% 0.200 Normal 0.0-0.9 [facility] Comment on above: Result Comment: IG% - Immature Granulocytes (promyelocytes, myelocytes and metamyelocytes) > 1% indicates that a LEFT SHIFT is Present. Performed By: #### L 501.5200, L500.2500, L100.0100 ####[facility] [address] [place], [address] Lymphocytes/100 WBC (Bld) 22.5 % Normal 19-41 [facility] Comment on above: Performed By: #### L 501.5200, L500.2500, L100.0100 ####[facility] [address] [place], [address] MCH (RBC) [Entitic mass] 27.0 pg Normal 27.0-32.0 [facility] Comment on above: Performed By: #### L 501.5200, L500.2500, L100.0100 ####[facility] [address] [place], [address] MCHC (RBC) [Mass/Vol] 32.4 g/dL Normal 32-[address] [facility] Comment on above: Performed By: #### L 501.5200, L500.2500, L100.0100 ####[facility] [address] [place], [address] MCV (RBC) [Entitic vol] 83.3 fL Normal 80-94 [facility] Comment on above: Performed By: #### L 501.5200, L500.2500, L100.0100 ####[facility] [address] [place], [address] Monocytes/100 WBC (Bld) 9.3 % Normal 0-10 [facility] Comment on above: Performed By: #### L 501.5200, L500.2500, L100.0100 ####[facility] [address] [place], [address] Neutrophils/100 WBC (Bld) 66.6 % Normal 47-70 [facility] Comment on above: Performed By: #### L 501.5200, L500.2500, L100.0100 ####[facility] [address] [place], [address] Nucleated RBC (Bld) [#/Vol] 0 10*3/uL Normal 0-5 [facility] Comment on above: Performed By: #### L 501.5200, L500.2500, L100.0100 ####[facility] [address] [place], [address] Platelet mean volume (Bld) [Entitic vol] 11.0 fL Normal 6.2-12.0 [facility] Comment on above: Performed By: #### L 501.5200, L500.2500, L100.0100 ####[facility] [address] [place], [address] Platelets (Bld) [#/Vol] 219 10*3/uL Normal 150-450 [facility] Comment on above: Performed By: #### L 501.5200, L500.2500, L100.0100 ####[facility] [address] [place], [address] RBC (Bld) [#/Vol] 4.44 10*6/uL Low 4.6-6.2 [facility] Comment on above: Performed By: #### L 501.5200, L500.2500, L100.0100 ####[facility] [address] [place], [address] RDW SD 50.7 fl High 35.1-43.9 [facility] Comment on above: Performed By: #### L 501.5200, L500.2500, L100.0100 ####[facility] [address] [place], [address] WBC (Bld) [#/Vol] 6.3 10*3/uL Normal 4.4-11.0 [facility] Comment on above: Performed By: #### L 501.5200, L500.2500, L100.0100 ####[facility] [id number] [place], [address] Consult: SOC Tele Non-Emerge nton 12-08-2021 Consult: [facility] Tele Non-Emergent [facility] Medical Records Department [address] [place] [address] Telemedicine Confirmation Receipt 12/08/21 MR#: [id number] Acct: [id number] Name: OLIVER CRAMER II Rep #: [id number] : 1965 56 From: Jesus Aguila MD PCP: [facility] Status:ADM IN [facility] Telemed has confirmed receipt of a request for visit. This document confirms receipt of the order initiating the consult. To find the results of the consultation, please view the patient's reports for the scanned Telemed Consult. Normal [facility] - Chemistry and C hemistry - challengeon 12-08-2021 Magnesium [Mass/Vol] 1.9 mg/dL 1.6-2.6 [facility] Work Phone: Magnesiumon 12-08-2021 Magnesium [Mass/Vol] 1.9 mg/dL Normal 1.6-2.6 [facility] Comment on above: Performed By: #### L 501.5200, L500.2500, L100.0100 ####[facility] [address] [place], [address] Partial Thromboplast Timeon 12-08-2021 aPTT Coag (Bld) [Time] 55.4 s High 24.1-36.2 [facility] Comment on above: Order Comment: Comme nts: heparin gtt Performed By: #### L 300.4310 ####[facility] [address] [place], [address] aPTT Coag (Bld) [Time] 57.6 s High 24.1-36.2 [facility] Comment on above: Performed By: #### L 300.4310 ####[facility] [address] [place], [address] Phosphoruson 12-08-2021 Phosphate [Mass/Vol] 2.8 mg/dL Normal 2.5-4.9 [facility] Comment on above: Performed By: #### L 501.2300 ####[facility] [address] [place], [address] 12 Lead EKGon 12-07-2021 12 Lead EKG [facility] Cardiovascular Services [address] [place] [address] 12 Lead EKG 12/06/21 1814 MR#: [id number] Acct: [id number] Name: OLIVER CRAMER II Rep #: [id number] : 1965 56 From: Beto Kay MD Attending Dr: Dr. Jesus Aguila MD Status: DIS IN Ordering Dr: Beto Kay MD Date: 12/07/21 Location: [facility] Sex: M AA Admitted: 12/06/21 Test Reason [...] Abnormal ECG Confirmed by DOMO URBAN, BETO ([id number]), bread dumper DREA BELLE ([id number]) on 12/11/2021 7:45:39 AM Referred By: LILIANA Confirmed By:BETO KAY MD 12/11/2145 Date Beto Kay MD CC: Dr. Beto Kay MD; Dr. Jesus Aguila MD; [facility] Signed Normal [facility] Basic Metabolic Profile (BMP )on 12-07-2021 BUN/CRE 13.1 RATIO Normal - [facility] Comment on above: Performed By: #### L 300.4310 #### [facility] [address] [place], [address] CA,Total 8.0 mg/dL Low 8.5-10.1 [facility] Comment on above: Performed By: #### L 300.4310 #### [facility] [address] [place], [address] Chloride [Moles/Vol] 103 mmol/L Normal 98-107 [facility] Comment on above: Performed By: #### L 300.4310 #### [facility] [address] [place], [address] CO2 [Moles/Vol] 28.0 mmol/L Normal 21.0-32.0 [facility] Comment on above: Performed By: #### L 300.4310 #### [facility] [address] [place], [address] Creatinine [Mass/Vol] 0.99 mg/dL Normal 0.70-1.[address] [facility] Comment on above: Result Comment: The validity of the calculated GFR GFRAA in patients over 70 years has not been determined. Clinical correlation is essential. Performed By: #### L 300.4310 #### [facility] [address] [place], [address] ECRCL 101.95 ml/min Normal [facility] Comment on above: Performed By: #### L 300.4310 #### [facility] [address] [place], [address] EST GFR - AA 101 mL/min Normal >60 [facility] Comment on above: Result Comment: Afri can Sudanese GFR Calc Performed By: #### L 300.4310 #### [facility] [address] [place], [address] GAP 7 Normal 5-15 [facility] Comment on above: Performed By: #### L 300.4310 #### [facility] [address] [place], [address] GFR/1.73 sq M.predicted among non-blacks MDRD (S/P/Bld) [Vol rate/Area] 83 mL/min/{1.73_m2} Normal >60 [facility] Comment on above: Result Comment: Non- GFR Calc Performed By: #### L 300.4310 #### [facility] [address] [place], [address] Glucose [Mass/Vol] 175 mg/dL High 74-106 [facility] Comment on above: Result Comment: Fast ing Glucose result greater than or equal to 126 mg/dL suggests DIABETES MELLITUS per A.D.A. criteria. Performed By: #### L 300.4310 #### [facility] [address] [place], [address] Potassium [Moles/Vol] 3.4 mmol/L Low 3.5-5.[address] [facility] Comment on above: Performed By: #### L 300.4310 #### [facility] [address] [place], [address] Sodium [Moles/Vol] 138 mmol/L Normal 136-145 [facility] Comment on above: Performed By: #### L 300.4310 #### [facility] [address] [place], [address] Urea nitrogen [Mass/Vol] 13 mg/dL Normal 7-18 [facility] Comment on above: Performed By: #### L 300.4310 #### [facility] [address] [place], [address] Basophil percentageon 2021 Cholesterol [Mass/Vol] 233 mg/dL <200 [facility] Work Phone: Comment on above: <200 mg/dL Desirable 200-240 mg/dL Borderline >240 mg/dL High Risk Triglyceride [Mass/Vol] 149 mg/dL <199 [facility] Work Phone: Comment on above: The drugs N-Acetylcy steine and Metamizole may falsely depress this assay.Serum Triglycerides Reference Interval Normal <150 mg/dL Borderline high 150 - 199 mg/dL High 200 - 499 mg/dL Very High > or = 500 mg/dL Bedside Glucoseon 12-07-2021 FINGERSTICK GLU 333 mg/dL High 74-106 [facility] Comment on above: Result Comment: PIOTR GEMENT OF PATIENT CARE PER NURSING PROTOCOL Performed By: #### L 501.080 #### [facility] [address] [place], [address] FINGERSTICK GLU 257 mg/dL High 74-106 [facility] Comment on above: Result Comment: PIOTR GEMENT OF PATIENT CARE PER NURSING PROTOCOL Performed By: #### L 501.080 #### [facility] [address] [place], [address] FINGERSTICK GLU 168 mg/dL High 74-106 [facility] Comment on above: Result Comment: PIOTR GEMENT OF PATIENT CARE PER NURSING PROTOCOL Performed By: #### L 501.080 #### [facility] [address] [place], [address] FINGERSTICK GLU 328 mg/dL High 74-106 [facility] Comment on above: Result Comment: PIOTR GEMENT OF PATIENT CARE PER NURSING PROTOCOL Performed By: #### L 300.4310 #### [facility] [address] [place], [address] Brain without Contraston Brain without Contrast [facility] Imaging Services [address] [place] [address] Brain without Contrast MR#: [id number] Acct: [id number] Name: OLIVER CRAMER II Rep #: [id number] : 1965 M 56 From: Moe Crawley MD PCP: [facility] Status: ADM IN Study: Brain without Contrast Date of Exam: 12/07/21 Exam# [id number] Ordering Dr: Kavon Mandel MD ADDENDUM by [...] 1050 Date cc: Dr. Kavon Mandel MD; [facility] * Signed ADDENDUM by Dr. Moe Crawley [...] 1104 Date cc: Dr. Kavon Mandel MD; [facility] * Signed ACR Level 3 findings have [...] 10:50 EDT Reading Location ID and State: [address] [place] [address] , Service support , CC: Dr. Kavon Mandel MD; [facility] Tab Builder: Signed Normal [facility] Brain/Head without Contrasto n 12-07-2021 Brain/Head without Contrast [facility] Imaging Services [address] [place] [address] Brain/Head without Contrast MR#: [id number] Acct: [id number] Name: OLIVER CRAMER II Rep #: [id number] : 1965 M 56 From: Moe Crawley MD PCP: [facility] Status: ADM IN Study: Brain/Head without Contrast Date of Exam: 11/10 Exam# [id number] Ordering Dr: Jesus Aguila MD STUDY: CT [...] EDT , CC: Dr. Jesus Aguila MD; [facility] Tab Builder: Signed Normal [facility] CBC W/Diff, Automatedon 10-3 0-2021 Absolute Lymph 1.77 X10 3/uL Normal 0.83-4.51 [facility] Comment on above: Performed By: #### L 024.3990 #### [facility] [address] [place], [place], [address] Absolute Neut 5.7 X10 3/uL Normal 2.0-7.7 [facility] Comment on above: Performed By: #### L 417.2461 #### [facility] [address] [place], [address] Basophils/100 WBC (Bld) 0.6 % Normal 0-1 [facility] Comment on above: Performed By: #### L 300.4310 #### [facility] [address] [place], [address] Eosinophils/100 WBC (Bld) 1.2 % Normal 0-5 [facility] Comment on above: Performed By: #### L 300.4310 #### [facility] [address] [place], [address] Erythrocyte distribution width (RBC) [Ratio] 16.8 % High 11.6-14.6 [facility] Comment on above: Performed By: #### L 300.4310 #### [facility] [address] [place], [address] Hematocrit (Bld) [Volume fraction] 38.9 % Low 40-54 [facility] Comment on above: Performed By: #### L 300.4310 #### [facility] [address] [place], [address] Hemoglobin (Bld) [Mass/Vol] 12.5 g/dL Low 13.0-16.5 [facility] Comment on above: Performed By: #### L 300.4310 #### [facility] [address] [place], [address] IG% 0.200 Normal 0.0-0.9 [facility] Comment on above: Result Comment: IG% - Immature Granulocytes (promyelocytes, myelocytes and metamyelocytes) > 1% indicates that a LEFT SHIFT is Present. Performed By: #### L 300.4310 #### [facility] [address] [place], [address] Lymphocytes/100 WBC (Bld) 21.2 % Normal 19-41 [facility] Comment on above: Performed By: #### L 300.4310 #### [facility] [address] [place], [address] MCH (RBC) [Entitic mass] 26.9 pg Low 27.0-32.0 [facility] Comment on above: Performed By: #### L 300.4310 #### [facility] [address] [place], [address] MCHC (RBC) [Mass/Vol] 32.1 g/dL Normal 32-[address] [facility] Comment on above: Performed By: #### L 300.4310 #### [facility] [address] [place], [address] MCV (RBC) [Entitic vol] 83.8 fL Normal 80-94 [facility] Comment on above: Performed By: #### L 300.4310 #### [facility] [address] [place], [address] Monocytes/100 WBC (Bld) 7.9 % Normal 0-10 [facility] Comment on above: Performed By: #### L 300.4310 #### [facility] [address] [place], [address] Neutrophils/100 WBC (Bld) 68.9 % Normal 47-70 [facility] Comment on above: Performed By: #### L 300.4310 #### [facility] [address] [place], [address] Nucleated RBC (Bld) [#/Vol] 0 10*3/uL Normal 0-5 [facility] Comment on above: Performed By: #### L 300.4310 #### [facility] [address] [place], [address] Platelet mean volume (Bld) [Entitic vol] 11.0 fL Normal 6.2-12.0 [facility] Comment on above: Performed By: #### L 300.4310 #### [facility] [address] [place], [address] Platelets (Bld) [#/Vol] 251 10*3/uL Normal 150-450 [facility] Comment on above: Performed By: #### L 300.4310 #### [facility] [address] [place], [address] RBC (Bld) [#/Vol] 4.64 10*6/uL Normal 4.6-6.2 [facility] Comment on above: Performed By: #### L 300.4310 #### [facility] [address] [place], [address] RDW SD 51.4 fl High 35.1-43.9 [facility] Comment on above: Performed By: #### L 300.4310 #### [facility] [address] [place], [address] WBC (Bld) [#/Vol] 8.3 10*3/uL Normal 4.4-11.0 [facility] Comment on above: Performed By: #### L 300.4310 #### [facility] [address] [place], [address] Lipid Profileon 12-07-2021 Cholesterol [Mass/Vol] 233 mg/dL High 200 [facility] Comment on above: Result Comment: <200 mg/dL Desirable 200-240 mg/dL Borderline >240 mg/dL High Risk Performed By: #### L 300.4310 #### [facility] [address] [place], [address] Cholesterol in HDL [Mass/Vol] 49 mg/dL Normal [facility] Comment on above: Result Comment: The drugs N-Acetylcysteine and Metamizole may falsely depress this assay. Reference Range HDL <40 mg/dL Low HDL Cholesterol HDL >or= 60 mg/dL High HDL Cholesterol Performed By: #### L 300.4310 #### [facility] [address] [place], [address] Cholesterol in LDL [Mass/Vol] 154 mg/dL High 0-130 [facility] Comment on above: Performed By: #### L 300.4310 #### [facility] [address] [place], [address] Cholesterol in VLDL [Mass/Vol] 30 mg/dL Normal 5-40 [facility] Comment on above: Performed By: #### L 300.4310 #### [facility] [address] [place], [address] Triglyceride [Mass/Vol] 149 mg/dL Normal [facility] Comment on above: Result Comment: The drugs N-Acetylcysteine and Metamizole may falsely depress this assay. Serum Triglycerides Reference Interval Normal <150 mg/dL Borderline high 150 - 199 mg/dL High 200 - 499 mg/dL Very High > or = 500 mg/dL Performed By: #### L 300.4310 #### [facility] [address] [place], [address] Partial Thromboplast Timeon 12-07-2021 aPTT Coag (Bld) [Time] 39.3 s High 24.1-36.2 [facility] Comment on above: Performed By: #### L 300.4310 #### [facility] [address] [place], [address] aPTT Coag (Bld) [Time] 34.6 s Normal 24.1-36.2 [facility] Comment on above: Performed By: #### L 300.4310 #### [facility] [address] [place], [address] aPTT Coag (Bld) [Time] 49.4 s High 24.1-36.2 [facility] Comment on above: Order Comment: Comme nts: Heparin gtt Performed By: #### L 300.4310 #### [facility] [address] [place], [address] aPTT Coag (Bld) [Time] 45.1 s High 24.1-36.2 [facility] Comment on above: Performed By: #### L 300.4310 #### [facility] [address] [place], [address] Serum or plasma cholesterol in HDL measurement (mass/volume)on 12-07-2021 Cholesterol in HDL [Mass/Vol] 49 mg/dL >40 [facility] Work Phone: Comment on above: The drugs N-Acetylcy steine and Metamizole may falsely depress this assay. Reference Range HDL <40 mg/dL Low HDL Cholesterol HDL >or= 60 mg/dL High HDL Cholesterol Serum or plasma cholesterol in VLDL measurement (mass/volume)on 12-07-2021 Cholesterol in VLDL [Mass/Vol] 30 mg/dL 5-40 [facility] Work Phone: Serum or plasma low density lipoprotein (LDL) cholesterol measurement (mass/volume)on 12-07-2021 Cholesterol in LDL [Mass/Vol] 154 mg/dL 0-130 [facility] Work Phone: 12 Lead EKGon 12-06-2021 12 Lead EKG [facility] Cardiovascular Services [address] [place] [address] 12 Lead EKG 12/07/21 0543 MR#: [id number] Acct: [id number] Name: OLIVER CRAMER II Rep #: [id number] : 1965 56 From: Wilfredo Chapman MD Attending Dr: Dr. Jesus Aguila MD Status: ADM IN Ordering Dr: Kavon Mandel MD Date: 12/06/21 Location: [facility] Sex: M AA Admitted: 12/06/21 Test Reason [...] hypertrophy with repolarization abnormality ( Sokolow-Narayan , Ely product , Romhilt-Noe ) Abnormal ECG When compared with ECG of 06-DEC-2021 14:35, MANUAL COMPARISON REQUIRED, DATA IS UNCONFIRMED Confirmed by LORAINE URBAN, WILFREDO ([id number]), bread dumper DREA BELLE ([id number]) on 12/08/2021 12:58:17 PM Referred By: Confirmed By:WILFREDO CHAPMAN MD 12/08/21 1258 Date Wilfredo Chapman MD CC: Dr. Kavon Mandel MD; Dr. Jesus Aguila MD; [facility] Signed [facility] 12 Lead EKG [facility] Cardiovascular Services [address] [place] [address] 12 Lead EKG 12/06/21 1435 MR#: [id number] Acct: [id number] Name: OLIVER CRAMER II Rep #: [id number] : 1965 56 From: Beto Kay MD Attending Dr: Dr. Jesus Aguila MD Status: ADM IN Ordering Dr: Beto Roberts MD Date: 12/06/21 Location: [facility] Sex: M AA Admitted: 12/06/21 Test Reason [...] Abnormal ECG Confirmed by DOMO URBAN, BETO ([id number]), bread dumper DREA BELLE ([id number]) on 12/08/2021 9:20:32 AM Referred By: Confirmed By:BETO KAY MD 12/08/21 0920 Date Beto Kay MD CC: Dr. Beto Roberts MD; Dr. Jesus Aguila MD; [facility] Signed Normal [facility] Absolute lymphocyte counton 12-06-2021 Lymphocytes Auto (Unsp spec) [#/Vol] 1.83 10*3/uL 0.83-4.51 [facility] Work Phone: Basic Metabolic Profile (BMP )on 12-06-2021 BUN/CRE 13.3 RATIO Normal 11-27 [facility] Comment on above: Order Comment: 'TROP ' Serial specimen #1, #2 or #3: 1 Performed By: #### L 501.080 #### [facility] [address] [place], [address] CA,Total 8.4 mg/dL Low 8.5-10.1 [facility] Comment on above: Order Comment: 'TROP ' Serial specimen #1, #2 or #3: 1 Performed By: #### L 501.080 #### [facility] [address] [place], [address] Chloride [Moles/Vol] 101 mmol/L Normal 98-107 [facility] Comment on above: Order Comment: 'TROP ' Serial specimen #1, #2 or #3: 1 Performed By: #### L 501.080 #### [facility] [address] [place], [address] CO2 [Moles/Vol] 29.0 mmol/L Normal 21.0-32.0 [facility] Comment on above: Order Comment: 'TROP ' Serial specimen #1, #2 or #3: 1 Performed By: #### L 501.080 #### [facility] [address] [place], [address] Creatinine [Mass/Vol] 1.20 mg/dL Normal 0.70-1.[address] [facility] Comment on above: Order Comment: 'TROP ' Serial specimen #1, #2 or #3: 1 Result Comment: The validity of the calculated GFR GFRAA in patients over 70 years has not been determined. Clinical correlation is essential. Performed By: #### L 501.080 #### [facility] [address] [place], [address] ECRCL 84.11 ml/min Normal [facility] Comment on above: Order Comment: 'TROP ' Serial specimen #1, #2 or #3: 1 Performed By: #### L 501.080 #### [facility] [address] [place], [address] EST GFR - AA 81 mL/min Normal >60 [facility] Comment on above: Order Comment: 'TROP ' Serial specimen #1, #2 or #3: 1 Result Comment: Afri can Sudanese GFR Calc Performed By: #### L 501.080 #### [facility] [address] [place], [address] GAP 5 Normal 5-15 [facility] Comment on above: Order Comment: 'TROP ' Serial specimen #1, #2 or #3: 1 Performed By: #### L 501.080 #### [facility] [address] [place], [address] GFR/1.73 sq M.predicted among non-blacks MDRD (S/P/Bld) [Vol rate/Area] 67 mL/min/{1.73_m2} Normal >60 [facility] Comment on above: Order Comment: 'TROP ' Serial specimen #1, #2 or #3: 1 Result Comment: Non- GFR Calc Performed By: #### L 501.080 #### [facility] [address] [place], [address] Glucose [Mass/Vol] 363 mg/dL High 74-106 [facility] Comment on above: Order Comment: 'TROP ' Serial specimen #1, #2 or #3: 1 Result Comment: Gluc ose result greater than or equal to 200 mg/dL suggests DIABETES MELLITUS per A.D.A. criteria. Performed By: #### L 501.080 #### [facility] [address] [place], [address] Potassium [Moles/Vol] 3.6 mmol/L Normal 3.5-5.[address] [facility] Comment on above: Order Comment: 'TROP ' Serial specimen #1, #2 or #3: 1 Performed By: #### L 501.080 #### [facility] [address] [place], [address] Sodium [Moles/Vol] 135 mmol/L Low 136-145 [facility] Comment on above: Order Comment: 'TROP ' Serial specimen #1, #2 or #3: 1 Performed By: #### L 501.080 #### [facility] [address] [place], [address] Urea nitrogen [Mass/Vol] 16 mg/dL Normal 7-18 [facility] Comment on above: Order Comment: 'TROP ' Serial specimen #1, #2 or #3: 1 Performed By: #### L 501.080 #### [facility] [address] [place], [address] Basophil percentageon 2021 Basophils/100 WBC (Bld) 0.4 % 0-1 [facility] Work Phone: Chloride [Moles/Vol] 101 mmol/L 98-107 [facility] Work Phone: [phone] Eosinophils/100 WBC (Bld) 0.6 % 0-5 [facility] Work Phone: [phone] Glucose [Mass/Vol] 363 mg/dL 74-106 [facility] Work Phone: [phone] Comment on above: Glucose result great er than or equal to 200 mg/dLsuggests DIABETES MELLITUS per A.D.A. criteria. Neutrophils (Bld) [#/Vol] 7.6 10*3/uL 2.0-7.7 [facility] Work Phone: Neutrophils/100 WBC (Bld) 73.7 % 47-70 [facility] Work Phone: Potassium [Moles/Vol] 3.6 mmol/L 3.5-5.1 [facility] Work Phone: Sodium [Moles/Vol] 135 mmol/L 136-145 [facility] Work Phone: WBC (Bld) [#/Vol] 10.2 10*3/uL 4.4-11.0 [facility] Work Phone: Bedside Glucoseon 12-06-2021 FINGERSTICK GLU 358 mg/dL High 74-106 [facility] Comment on above: Result Comment: PIOTR VILLAN[place] OF PATIENT CARE PER NURSING PROTOCOL Performed By: #### L 300.4310 #### [facility] [address] [place] [address]. [place], [place], [id number] Blood erythrocytes count (nu mber/volume)on 12-06-2021 RBC (Bld) [#/Vol] 4.91 10*6/uL 4.6-6.2 [facility] Work Phone: Blood hemoglobin measurement (mass/volume)on 12-06-2021 Hemoglobin (Bld) [Mass/Vol] 13.6 g/dL 13.0-16.5 [facility] Work Phone: Blood lymphocytes/100 leukoc yteson 12-06-2021 Lymphocytes/100 WBC (Bld) 17.9 % 19-41 [facility] Work Phone: Blood monocytes/100 leukocyt eson 12-06-2021 Monocytes/100 WBC (Bld) 7.2 % 0-10 [facility] Work Phone: Blood platelet mean volumeon 12-06-2021 Platelet mean volume (Bld) [Entitic vol] 11.4 fL 6.2-12.0 [facility] Work Phone: CBC W/Diff, Automatedon 10- Absolute Lymph 1.83 X10 3/uL Normal 0.83-4.51 [facility] Comment on above: Performed By: #### L 501.080 #### [facility] [address] [place], [address] Absolute Neut 7.6 X10 3/uL Normal 2.0-7.7 [facility] Comment on above: Performed By: #### L 501.080 #### [facility] [address] [place], [address] Basophils/100 WBC (Bld) 0.4 % Normal 0-1 [facility] Comment on above: Performed By: #### L 501.080 #### [facility] [address] [place], [address] Eosinophils/100 WBC (Bld) 0.6 % Normal 0-5 [facility] Comment on above: Performed By: #### L 501.080 #### [facility] [address] [place], [address] Erythrocyte distribution width (RBC) [Ratio] 16.7 % High 11.6-14.6 [facility] Comment on above: Performed By: #### L 501.080 #### [facility] [address] [place], [address] Hematocrit (Bld) [Volume fraction] 40.7 % Normal 40-54 [facility] Comment on above: Performed By: #### L 501.080 #### [facility] [address] [place], [address] Hemoglobin (Bld) [Mass/Vol] 13.6 g/dL Normal 13.0-16.5 [facility] Comment on above: Performed By: #### L 501.080 #### [facility] [address] [place], [address] IG% 0.200 Normal 0.0-0.9 [facility] Comment on above: Result Comment: IG% - Immature Granulocytes (promyelocytes, myelocytes and metamyelocytes) > 1% indicates that a LEFT SHIFT is Present. Performed By: #### L 501.080 #### [facility] [address] [place], [address] Lymphocytes/100 WBC (Bld) 17.9 % Low 19-41 [facility] Comment on above: Performed By: #### L 501.080 #### [facility] [address] [place], [address] MCH (RBC) [Entitic mass] 27.7 pg Normal 27.0-32.0 [facility] Comment on above: Performed By: #### L 501.080 #### [facility] [address] [place], [address] MCHC (RBC) [Mass/Vol] 33.4 g/dL Normal 32-[address] [facility] Comment on above: Performed By: #### L 501.080 #### [facility] [address] [place], [address] MCV (RBC) [Entitic vol] 82.9 fL Normal 80-94 [facility] Comment on above: Performed By: #### L 501.080 #### [facility] [address] [place], [address] Monocytes/100 WBC (Bld) 7.2 % Normal 0-10 [facility] Comment on above: Performed By: #### L 501.080 #### [facility] [address] [place], [address] Neutrophils/100 WBC (Bld) 73.7 % High 47-70 [facility] Comment on above: Performed By: #### L 501.080 #### [facility] [address] [place], [address] Nucleated RBC (Bld) [#/Vol] 0 10*3/uL Normal 0-5 [facility] Comment on above: Performed By: #### L 501.080 #### [facility] [address] [place], [address] Platelet mean volume (Bld) [Entitic vol] 11.4 fL Normal 6.2-12.0 [facility] Comment on above: Performed By: #### L 501.080 #### [facility] [address] [place], [address] Platelets (Bld) [#/Vol] 299 10*3/uL Normal 150-450 [facility] Comment on above: Performed By: #### L 501.080 #### [facility] [address] [place], [address] RBC (Bld) [#/Vol] 4.91 10*6/uL Normal 4.6-6.2 [facility] Comment on above: Performed By: #### L 501.080 #### [facility] [address] [place], [address] RDW SD 50.6 fl High 35.1-43.9 [facility] Comment on above: Performed By: #### L 501.080 #### [facility] [address] [place], [address] WBC (Bld) [#/Vol] 10.2 10*3/uL Normal 4.4-11.0 [facility] Comment on above: Performed By: #### L 501.080 #### [facility] [address] [place], [address] Chest 1 Viewon 12-06-2021 Chest 1 View [facility] Imaging Services [address] [place] [address] Chest 1 View MR#: [id number] Acct: [id number] Name: SHOAIBOLIVERJAQUAN GILL II Rep #: [id number] : 1965 M 56 From: Quentin Toledo PCP: [place] Status: ADM IN Study: Chest 1 View Date of Exam: 12/06/21 Exam# [id number] Ordering Dr: Beto Roberts MD STUDY: X-RAY [...] 17:31 EDT Reading Location ID and State: [facility] / [place] , Service support , CC: Dr. Beto Roberts MD; [facility] Tab Builder: Signed Normal [facility] Consultation - Cardiologyon 12-06-2021 Consultation - Cardiology [facility] Medical Records Department [address] [place] [address] Consultation - Cardiology 12/06/21 1935 MR#: [id number] Acct: [id number] Name: OLIVER CRAMER II Rep #: [id number] : 1965 56 From: Beto Kay MD PCP: [place] Status:ADM IN Location: [facility] [id number] Assessment Plan Assessment/Plan (1) Non-STEMI (non-ST elevated myocardial infarction): PLAN: The patient presents with abnormal troponin I levels appearing compatible with an acute non-ST segment elevation PA. At the moment it is unclear whether [...] history he has been following with the [facility] cardiology. It does not appear, based upon his history, that he has undergone additional noninvasive or invasive studies via the [facility]. He is continuing medical therapy at this [...] He remains dysarthric at this time. The [facility] emergency department staff discussed with the [facility] stroke center further evaluation and care. It [...] care per internal medicine. Addt'l Comments Comment: [facility]-card[facility] was contacted by the [facility] emergency department physician caring for the patient while the patient was in the [facility] emergency d epartment. The [facility] emergency department physician inquired regarding the pat ient's clinical course and additional cardiovascular recommendations with respect to antiplatelet th erapy and anticoagulant therapy for the possibility of an acute coronary syndrome/non-ST segment cristine vation PA. Status post a conversation with the [facility] emergency department phys ician caring for the patient regarding the patient's presentation and objective findings, it was rec ommended to the [facility] emergency department physician that neurology be [...] ECG, if not related to an acute FRUIT COORDINATOR event and related to an acute coronary syndrome event, that could require additional cardiovascular evaluation including the possible need for diagnostic cardiac catheterization/revasc ularization therapy. The recommendation for transfer to a tertiary care center was to take into con sideration that if the patient's cardiovascular cl (more content not included)... [facility] Determination of erythrocyte mean corpuscular volume (MCV)on 12-06-2021 MCV (RBC) [Entitic vol] 82.9 fL 80-94 [facility] Work Phone: Echo Completeon 12-06-2021 Echo Complete [facility] Cardiovascular Services [address] [facility] [place] [address] Echo Complete 12/08/21 1045 MR#: [id number] Acct: [id number] Name: OLIVER CRAMER II Rep #: [id number] : 1965 56 From: Wilfredo Chapman MD Attending Dr: Dr. Jesus Aguila MD Status: ADM IN Ordering Dr: Kavon Mandel MD Date: 12/06/21 Location: [facility] Sex: M AA Admitted: 12/06/21 Reason For [...] Kavon Mandel MD; Dr. Jesus Aguila MD; [facility] Date Dictated: 12/08/21 1045 Date Transcribed: 12/08/21 1400 Tab Builder: Signed Normal [facility] Emergency Department Summary on 12-06-2021 Emergency Department Summary [facility] Medical Records Department [address] [place] [address] Emergency Department Summary 12/06/21 MR#: [id number] Acct: [id number] Name: OLIVER CRAMER II Rep #: [id number] : 1965 56 From: Beto Roberts MD [place]CP: [facility] Status:ADM IN Location: [place] [address] HPI History of Present Illness Chief Complaint: [...] Sensory (Apha (more content not included)... [facility] Glucose Glucometer (BldC) [M ass/Vol]on 12-06-2021 Glucose [Mass/Vol] 358 mg/dL 74-106 [facility] Work Phone: Comment on above: MANAGEMENT OF PATIEN T CARE PER NURSING PROTOCOL H AND P Exam - Hospitaliston 12-06-2021 H&P Exam - Hospitalist [facility] Medical Records Department [address] [place] [address] H P Exam - Hospitalist 12/06/21 1630 MR#: [id number] Acct: [id number] Name: OLIVER CRAMER II Rep #: [id number] : 1965 56 From: Kavon Mandel MD [place] Status:ADM IN Location: [place] [address] HPI - General General Date of Admission: [...] well as a stage II diastolic dysfunction[facility] History Anxiety Congestive heart failure [...] No rhonc (more content not included)... [facility] Hematocrit Auto (Bld) [Volum e fraction]on 12-06-2021 Hematocrit (Bld) [Volume fraction] 40.7 % 40-54 [facility] Work Phone: INR in Blood by Coagulation assayon 12-06-2021 INR Coag (Bld) [Relative time] 1.0 {INR} [facility] Work Phone: [phone] 12-06-2021 TROPONIN-I HS 503 pg/mL Invalid Interpretation Code 3.0-78.0 [facility] Comment on above: Order Comment: Comme nts: SPECIMEN #3'TROP' Serial specimen #1, #2 or #3: 3 Result Comment: Plea se Note: New Test Units and Gender Specific Reference Ranges. For more information see Policy Stat Procedure [place] High Sensitivity Troponin (TNIH) and attachments. Performed By: #### L 300.4310 #### [facility] [address] [place], [address] TROPONIN-I HS 556 pg/mL Invalid Interpretation Code 3.0-78.0 [facility] Comment on above: Order Comment: Comme nts: SPECIMEN #2 'TROP' Serial specimen #1, #2 or #3: 2 Result Comment: Plea se Note: New Test Units and Gender Specific Reference Ranges. For more information see Policy Stat Procedure [place] High Sensitivity Troponin (TNIH) and attachments. Performed By: #### L 501.4020 #### [facility] [address] [place], [address] TROPONIN-I HS 795 pg/mL Invalid Interpretation Code 3.0-78.0 [facility] Comment on above: Order Comment: 'TROP ' Serial specimen #1, #2 or #3: 1 Result Comment: Joshuajulian ical Result(s) Called at: 14:48:11 12/06/2021 by: Reynaldo Becerra to Marcela WILBURN (ER). Results read back by same. Please Note: New Test Units and Gender Specific Reference Ranges. For more information see Policy Stat Procedure [place] High Sensitivity Troponin (TNIH) and attachments. Performed By: #### L 501.080 #### [facility] [address] [place], [place], [address] Laboratory - Chemistry and C hemistry - challengeon 12-06-2021 CO2 [Moles/Vol] 29.0 mmol/L 21.0-32.0 [facility] Work Phone: Urea nitrogen/Creatinine [Mass ratio] 13.3 mg/mg 10- [facility] Work Phone: Laboratory - Coagulationon 1 aPTT Coag (Bld) [Time] 28.1 s 24.1-36.2 [facility] Work Phone: PT Coag (PPP) [Time] 12.6 s 11.7-14.9 [facility] Work Phone: Laboratory - Hematology and Cell countson 12-06-2021 Erythrocyte distribution width (RBC) [Entitic vol] 50.6 fL 35.1-43.9 [facility] Work Phone: Erythrocyte distribution width (RBC) [Ratio] 16.7 % 11.6-14.6 [facility] Work Phone: Immature granulocytes/100 WBC (Bld) 0.200 % 0.0-0.9 [facility] Work Phone: Comment on above: IG% - Immature Granu locytes (promyelocytes, myelocytes and metamyelocytes) > 1% indicates that a LEFT SHIFT is Present. MCH (RBC) [Entitic mass] 27.7 pg 27.0-32.0 [facility] Work Phone: Nucleated RBC/100 WBC (Bld) [Ratio] 0 % 0-5 [facility] Work Phone: MCHC Auto (RBC) [Mass/Vol]on 12-06-2021 MCHC (RBC) [Mass/Vol] 33.4 g/dL 32-[address] [facility] Work Phone: No Panel Informationon 12-06 Troponin I High Sensitivity 503 pg/mL 3.0-78.0 [facility] Work Phone: Comment on above: Please Note: New Fernanda t Units and Gender Specific Reference Ranges. For more information see Policy Stat Procedure [place] High Sensitivity Troponin (TNIH) and attachments. Estimated Creatinine Clearance Calc 84.11 ml/min [facility] Work Phone: Estimated GFR (MDRD) Amer 81 mL/min >60 [facility] Work Phone: Comment on above: GFR Calc Estimated GFR (MDRD) Non-Af Amer 67 mL/min >60 [facility] Work Phone: Comment on above: Non- GFR Calc Troponin I High Sensitivity 795 pg/mL 3.0-78.0 [facility] Work Phone: Comment on above: Critical Result(s) C alled at: 14:48:11 12/06/2021 by: Reynaldo Medrano RN (ER). Results read back by same. Please Note: New Test Units and Gender Specific Reference Ranges. For more information see Policy Stat Procedure [place] High Sensitivity Troponin (TNIH) and attachments. Partial Thromboplast Timeon 12-06-2021 aPTT Coag (Bld) [Time] 28.1 s Normal 24.1-36.2 [facility] Comment on above: Performed By: #### L 501.080 #### [facility] [address] [place], [address] Platelets bldon 12-06-2021 Platelets (Bld) [#/Vol] 299 10*3/uL 150-450 [facility] Work Phone: Prothrombin Time w/INRon INR Normal [facility] Comment on above: Result Comment: DUPL ICATE Performed By: #### L 501.080 #### [facility] [address] [place], [address] PROTIME Normal 11.7-14.9 [facility] Comment on above: Result Comment: DUPL ICATE Performed By: #### L 501.080 #### [facility] [address] [place], [address] INR Coag (PPP) [Relative time] 1.0 {INR} Normal [facility] Comment on above: Performed By: #### L 501.080 #### [facility] [address] [place], [address] PT Coag (PPP) [Time] 12.6 s Normal 11.7-14.9 [facility] Comment on above: Performed By: #### L 501.080 #### [facility] [address] [place], [address] STROKE Brain/Head without Co nton 12-06-2021 STROKE Brain/Head without Cont [facility] Imaging Services [address] [place] [address] STROKE Brain/Head without Cont MR#: [id number] Acct: [id number] Name: OLIVER CRAMER II Rep #: [id number] : 1965 M 56 From: Quentin Toledo PCP: [facility] Status: REG ER Study: STROKE Brain/Head without Cont Date of Exam: Exam# [id number] Ordering Dr: Beto Roberts MD ADDENDUM by [...] 1420 Date cc: Dr. Beto Roberts MD; [facility] * Signed ADDENDUM by Dr. Quentin Lau [...] 1430 Date cc: Dr. Beto Roberts MD; [facility] * Signed We are attempting to reach [...] EDT , CC: Dr. Beto Roberts MD; [facility] Tab Builder: Signed [facility] STROKE CTA Head AND Neck W/C onon 12-06-2021 STROKE CTA Head AND Neck W/Con [facility] Imaging Services [address] [place] [address] STROKE CTA Head AND Neck W/Con MR#: [id number] Acct: [id number] Name: OLIVER CRAMER II Rep #: [id number] : 1965 M 56 From: Quentin Toledo PCP: [place] Status: [facility] Study: STROKE CTA Head AND Neck W/Con Date of Exam: Exam# [id number] Ordering Dr: Beto Roberts MD ADDENDUM by Dr. Quentin Lau MD on 12/06/21 at 1443 EXAM: CT ANGIOGRAPHY HEAD AND NECK WITH INTRAVENOUS CONTRAST CLINICAL INDICATION: Neuro deficit, acute, stroke suspected TECHNIQUE: [place]/head and neck CT angiography protocol performed with intravenous contrast. This CT exam was performed using one or more of the following dose reduction techniques: automated exposure control, adjustment of the mA and/or kV according to patient size, and/or use of iterative reconstruction technique. This report was created using [employer] report generation technology. MIP reconstructed images were [...] 1443 Date cc: Dr. Beto Roberts MD; [facility] * Signed ADDENDUM by Dr. Qeuntin Lau MD on 12/06/[address]/STROKE [...] than 50%) (more content not included)... [facility] Serum or plasma calcium enmanuel urement (mass/volume)on 12-06-2021 Calcium [Mass/Vol] 8.4 mg/dL 8.5-10.1 [facility] Work Phone: Serum or plasma creatinine m easurement (mass/volume)on 12-06-2021 Creatinine [Mass/Vol] 1.20 mg/dL 0.70-1.[address] [facility] Work Phone: Comment on above: The validity of the calculated GFR & GFRAA in patients over 70 years has not been determined. Clinical correlation is essential. Serum or plasma urea nitroge n measurement (mass/volume)on 12-06-2021 Urea nitrogen [Mass/Vol] 16 mg/dL 08-25 [facility] Work Phone: Thin prep Papanicolaou smear with manual screeningon 12-06-2021 Thin prep Papanicolaou smear with manual screening 06-22 [facility] Work Phone: CNPNon 06-08-2017 CNPN Telephone (FAMPWS) KATHYA GILLESPIESHRADDHA ([id number]) 1965 MDate Time Provider Department06/08/17 [facility] RAZO) [facility] During your visit today, we recorded the [...] Meng Osuna - Fully AssessedReason for Visit: [facility]/Care Gap Outreach [3605]Prescriptions as of 06/08/2017 [...] without diagnos*INVALID FOR*Letter Text Meng Osuna M.D. [facility]Office: May 2017Ken Qzgphg37[address] Reyna Klein [address] [place] [id number] Chary Cramer,Our office has been attempting to reach you by telephone and we were notsuccessful. The phone number we have on file for you is [phone] (home) .We have identified some questions that [...] Status:Closed by GENOVEVA RAZO on 06/08/17 Normal [facility] Vital Signs Date Time Vital Sign Value Performing Clinician Facility 08-28-2024 18:55-0400 Body temperature 98.1 [degF] [facility] 08-28-2024 18:55-0400 Diastolic blood pressure 80 mm[Hg] [facility] 08-28-2024 18:55-0400 Heart rate 57 /min [facility] 08-28-2024 18:55-0400 Respiratory rate 16 /min [facility] 08-28-2024 18:55-0400 SaO2% (BldA) [Mass fraction] 98 % [facility] 08-28-2024 18:55-0400 Systolic blood pressure 122 mm[Hg] [facility] 08-28-2024 15:36-0400 Body height 190.5 cm [facility] 08-28-2024 15:36-0400 Body mass index (BMI) [Ratio] 27.1 kg/m2 [facility] 08-28-2024 15:36-0400 Body weight 98.24 kg [facility] 09-20-2022 12:05-0400 Heart rate 100 /min DR ERIN DRISCOLL MD [facility] 09-20-2022 11:23-04[address] Pressure Cuff Size DR ERIN DRISCOLL MD [facility] 09-20-2022 11:23-[address] ERIN DRISCOLL MD [facility] 09-20-2022 11:23-[address] ERIN DRISCOLL MD [facility] 09-20-2022 11:23-0400 Body temperature 98.24 [degF] DR ERIN DRISCOLL MD [address] [place] [address] 09-20-2022 11:23-0400 Diastolic Blood Pressure Non-Invasive [address] ERIN DRISCOLL MD [address] [place] [address] 09-20-2022 11:23-0400 Heart rate 85 /min DR ERIN DRISCOLL MD [address] [place] [address] 09-20-2022 11:23-0400 Reason For Taking VItal Signs DR ERIN DRISCOLL MD [address] [place] [address] 09-20-2022 11:23-0400 Respiratory rate 20 /min DR ERIN DRISCOLL MD [address] [place] [address] 09-20-2022 11:23-0400 Systolic Blood Pressure Non-Invasive [address] ERIN DRISCOLL MD [address] [place] [address] 09-20-2022 09:11-0400 Diastolic Blood Pressure Non-Invasive [address] ERIN DRISCOLL MD [address] [place] [address] 09-20-2022 09:11-0400 Systolic Blood Pressure Non-Invasive [address] ERIN DRISCOLL MD [address] [place] [address] 09-20-2022 08:17-0400 Diastolic Blood Pressure Non-Invasive [address] ERIN DRISCOLL MD [address] [place] [address] 09-20-2022 08:17-0400 Systolic Blood Pressure Non-Invasive [address] ERIN DRISCOLL MD [address] [place] [address] 09-20-2022 07:09-04[address] Cuff Size DR ERIN DRISCOLL MD [address] [place] [address] 09-20-2022 07:09-[address] ERIN DRISCOLL MD [address] [place] [address] 09-20-2022 07:09-[address] ERIN DRISCOLL MD [address] [place] [address] 09-20-2022 07:09-0400 Body temperature 98.42 [degF] DR ERIN DRISCOLL MD [address] [place] [address] 09-20-2022 07:09-0400 Heart rate 95 /min DR ERIN DRISCOLL MD [address] [place] [address] 09-20-2022 07:09-0400 Reason For Taking VItal Signs DR ERIN DRISCOLL MD [address] [place] [address] 09-20-2022 07:09-0400 Respiratory rate 20 /min DR ERIN DRISCOLL MD [address] [place] [address] 09-20-2022 03:56-[address] Cuff Size DR ERIN DRISCOLL MD [address] [place] [address] 09-20-2022 03:56-[address] ERIN DRISCOLL MD [address] [place] [address] 09-20-2022 03:56-[address] ERIN DRISCOLL MD [address] [place] [address] 09-20-2022 03:56-0400 Body temperature 97.52 [degF] DR ERIN DRISCOLL MD [address] [place] [address] 09-20-2022 03:56-0400 Reason For Taking VItal Signs DR ERIN DRISCOLL MD [address] [place] [address] 09-20-2022 03:56-0400 Respiratory rate 18 /min DR ERIN DRISCOLL MD [address] [place] [address] 09-19-2022 06:06-0400 Mean blood pressure 111 mm[Hg] DR ERIN DRISCOLL MD [address] [place] [address] 09-19-2022 05:21-0400 Mean blood pressure 105 mm[Hg] DR ERIN DRISCOLL MD [address] [place] [address] 09-19-2022 04:47-0400 Mean blood pressure 109 mm[Hg] DR ERIN DRISCOLL MD [address] [place] [address] 09-18-2022 13:08-0400 Diastolic blood pressure 70 mm[Hg] DR ERIN DRISCOLL MD [address] [place] [address] 09-18-2022 13:08-0400 Mean blood pressure 96 mm[Hg] DR ERIN DRISCOLL MD [address] [place] [address] 09-18-2022 13:08-0400 Systolic blood pressure 164 mm[Hg] DR ERIN DRISCOLL MD [address] [place] [address] 09-18-2022 12:35-0400 Diastolic blood pressure 66 mm[Hg] DR ERIN DRISCOLL MD [address] [place] [address] 09-18-2022 12:35-0400 Mean blood pressure 94 mm[Hg] DR ERIN DRISCOLL MD [address] [place] [address] 09-18-2022 12:35-0400 Systolic blood pressure 158 mm[Hg] DR ERIN DRISCOLL MD [address] [place] [address] 09-18-2022 11:58-0400 Diastolic blood pressure 45 mm[Hg] DR ERIN DRISCOLL MD [address] [place] [address] 09-18-2022 11:58-0400 Mean blood pressure 62 mm[Hg] DR ERIN DRISCOLL MD [address] [place] [address] 09-18-2022 11:58-0400 Systolic blood pressure 104 mm[Hg] DR ERIN DRISCOLL MD [address] [place] [address] 09-17-2022 09:33-0400 Body temperature 98.06 [degF] DR ERIN DRISCOLL MD [address] [place] [address] 09-17-2022 04:47-0400 SaO2% (BldA) [Mass fraction] 99.6 % DR ERIN DRISCOLL MD [facility] 09-16-2022 22:55-0400 Body temperature 97.7 [degF] DR ERIN DRISCOLL MD [address] [place] [address] 09-16-2022 20:59-0400 Body temperature 97.88 [degF] DR ERIN DRISCOLL MD [address] [place] [address] 09-16-2022 20:27-0400 Body height 182.[address] ERIN DRISCOLL MD [address] [place] [address] 09-16-2022 20:27-0400 Body weight 94.[address] ERIN DRISCOLL MD [address] [place] [address] 09-16-2022 20:27-0400 Body weight 28.25 kg/m2 DR ERIN DRISCOLL MD [address] [place] [address] 09-16-2022 16:49-0400 SaO2% (BldA) [Mass fraction] 94.7 % DR ERIN DRISCOLL MD [facility] 09-16-2022 13:50-0400 SaO2% (BldA) [Mass fraction] 96.4 % DR ERIN DRISCOLL MD [facility] 09-16-2022 13:06-0400 Heart rate 142 /min DR ERIN DRISCOLL MD [address] [place] [address] 09-16-2022 12:51-0400 Heart rate 148 /min DR ERIN DRISCOLL MD [address] [place] [address] 09-16-2022 12:24-0400 Body weight 94.[address] ERIN DRISCOLL MD [facility] 09-16-2022 12:24-0400 Heart rate 135 /min DR ERIN DRISCOLL MD [facility] 12-09-2021 13:23-0400 Body mass index (BMI) [Ratio] 24.9 kg/m2 [facility] Work Phone: 12-09-2021 10:00-0400 Body temperature 98.2 [degF] [facility] Work Phone: 12-09-2021 10:00-0400 Diastolic blood pressure 99 mm[Hg] [facility] Work Phone: 12-09-2021 10:00-0400 Heart rate 79 /min [facility] Work Phone: 12-09-2021 10:00-0400 Respiratory rate 16 /min [facility] Work Phone: 12-09-2021 10:00-0400 SaO2% (BldA) [Mass fraction] 97 % [facility] Work Phone: 12-09-2021 10:00-0400 Systolic blood pressure 170 mm[Hg] [facility] Work Phone: 12-07-2021 14:59-0400 Body height 190.5 cm [facility] Work Phone: 12-07-2021 14:59-0400 Body weight 90.44 kg [facility] Work Phone: 12-06-2021 17:39-0400 Diastolic blood pressure 116 mm[Hg] [facility] Work Phone: 12-06-2021 17:39-0400 Heart rate 71 /min [facility] Work Phone: 12-06-2021 17:39-0400 Respiratory rate 16 /min [facility] Work Phone: 12-06-2021 17:39-0400 SaO2% (BldA) [Mass fraction] 98 % [facility] Work Phone: 12-06-2021 17:39-0400 Systolic blood pressure 168 mm[Hg] [facility] Work Phone: 12-06-2021 16:55-0400 Body temperature 97.9 [degF] [facility] Work Phone: 12-06-2021 14:07-0400 Body height 190.5 cm [facility] Work Phone: 12-06-2021 14:07-0400 Body mass index (BMI) [Ratio] 26 kg/m2 [facility] Work Phone: 12-06-2021 14:07-0400 Body weight 94.6 kg [facility] Work Phone: Encounters Encounter Date Encounter Type Care Provider Facility Start: 08-28-2024 Evaluation and management of inpatient Dr. Meng Avelar DPM -[facility] 3 Work Phone: Start: 03-01-2023 End: 05-12-2023 ambulatory [facility] [place] Facility:B Start: 03-01-2023 End: 05-12-2023 Cardiac Rehab VANESSA KO MD [facility] Start: 02-16-2023 End: 02-17-2023 ambulatory [facility] [place] Facility:A Start: 02-16-2023 End: 02-16-2023 Patient encounter procedure [facility] Start: 02-15-2023 ambulatory [facility] [place] Facility:B Start: 09-16-2022 End: 09-20-2022 Evaluation and management of inpatient [facility] [place] Facility:A Start: 09-16-2022 End: 09-20-2022 Evaluation and management of inpatient DR ERIN DRISCOLL MD [facility] Start: 12-11-2021 ambulatory [facility] Facility:[facility] Start: 12-09-2021 Evaluation and management of inpatient [facility] Facility:[facility] Start: 12-09-2021 Non-patient / Non-visit [facility] Start: 12-08-2021 Non-patient / Non-visit [facility] Start: 12-08-2021 ambulatory [facility] Facility:[facility] Start: 12-08-2021 Non-patient / Non-visit [facility] Start: 12-08-2021 Non-patient / Non-visit [facility] Start: 12-07-2021 Non-patient / Non-visit [facility] Start: 12-07-2021 Non-patient / Non-visit [facility] Inpatient Physicians Start: 12-06-2021 Non-patient / Non-visit [facility] Start: 12-06-2021 ambulatory [facility] Facility :[facility] Start: 12-06-2021 End: 12-09-2021 Evaluation and management of inpatient [facility] Facility:[facility] Start: 12-06-2021 Non-patient / Non-visit [facility] Inpatient Phys[facility] Start: 12-06-2021 End: 12-09-2021 Evaluation and management of inpatient [facility] Procedures Date Procedure Procedure Detail Performing Clinician Start: 08-28-2024 X-ray of foot, three or more views [facility] Start: 08-28-2024 Estimated creatinine clearance [facility] Start: 02-16-2023 Echocardiography VANESSA KO MD Comment [...] h left and right heart DANIEL JULIANNE LOPEZPatient Communicator Comment on above: SUMMARY: 1. LAD: Proximal [...] medical therapy. Start: 09-16-2022 Echocardiography DANIEL COWAN APRNPatient Communicator Comment on above: 1. Left ventricle: T [...] Start: 12-07-2021 CT of head without contrast [facility] Start: 12-07-2021 MRI of brain without contrast [facility] Start: 12-06-2021 Plain chest X-ray [facility] Start: 12-06-2021 CT angiography of he ad and neck [facility] Start: 12-06-2021 CT of head without contrast [facility] Plan of Treatment Date Care Activity Detail Author Start: 08-28-2024 Admission procedure [facility] Start: 08-28-2024 Amputation of toe Amputation Toe/Foot (Right) [facility] Start: 08-28-2024 Referral to vascular surgeon [facility] Start: 08-28-2024 Ankle brachial pressure index [facility] Start: 08-28-2024 [facility] Start: 08-28-2024 Hospital admission, emergency, from emergency room, medical nature [facility] Start: 08-28-2024 [facility] Start: 08-28-2024 Bacteria identified in Blood by Culture Blood Culture [facility] Start: 12-09-2021 Patient discharge [facility] Work Phone: Start: 12-06-2021 End: 12-06-2021 Following clinical pathway protocol [facility] Work Phone: Start: 12-06-2021 Transfusion of blood product [facility] Work Phone: Start: 12-06-2021 Ambulation without limitation [facility] Work Phone: Start: 12-06-2021 Assessment of risk of venous thromboembolism [facility] Work Phone: Start: 12-06-2021 Cardiac monitoring [facility] Work Phone: Start: 12-06-2021 Care regimes management [facility] Work Phone: Start: 12-06-2021 Catheterization of vein [facility] Work Phone: Start: 12-06-2021 Elevation of head of bed [facility] Work Phone: Start: 12-06-2021 Exercises [facility] Work Phone: Start: 12-06-2021 Implementation of planned interventions [facility] Work Phone: Start: 12-06-2021 Insertion of catheter into peripheral vein [facility] Work Phone: Start: 12-06-2021 Measuring intake and output [facility] Work Phone: Start: 12-06-2021 Notification of physician [facility] Work Phone: Start: 12-06-2021 Oxygen therapy [facility] Work Phone: Start: 12-06-2021 Patient referral to dietitian [facility] Work Phone: Start: 12-06-2021 Providing care according to standard [facility] Work Phone: Start: 12-06-2021 Referral to quality intern [facility] Work Phone: Start: 12-06-2021 Referral to occupational therapist [facility] Work Phone: Start: 12-06-2021 Referral to service [facility] Work Phone: Start: 12-06-2021 Speech therapy assessment [facility] Work Phone: Start: 12-06-2021 Tobacco use cessation education [facility] Work Phone: Start: 12-06-2021 [facility] Work Phone: Start: 12-06-2021 Admission procedure [facility] Work Phone: Start: 12-06-2021 Verification routine [facility] Work Phone: Start: 12-06-2021 Oxygen therapy [facility] Work Phone: Start: 12-06-2021 [facility] Work Phone: Patient referral [facility] Work Phone: Immunizations Immunization Date Immunization Notes Care Provider Kurtis rod 12-07-2021 influenza, injectabl e, quadrivalent, preservative free [facility] 12-07-2021 influenza, seasonal, injectable [facility] Work Phone: 06-24-2020 Covid (Moderna) [facility] Payers Date Payer Category Payer Self-pay [id number] 2021 Unknown [id number] 1965 Unknown [id number] 2.16. [id number] 1965 Unknown [id number] 2.16.8 [id number] 1965 Unknown [id number] 2.16.8 [id number] 1965 Unknown [id number] 2.16.8 [id number] 1965 Unknown [id number] 2.16.8 [id number] Self-pay [id number] 03 Unknown [id number] 2.16.8 [id number] Unknown [id number] 2.16.8 40.1.195093.3.579.2.462 Unknown [id number] 2.16.8 40.1.417957.3.579.2.462 Unknown [id number] 2.16.8 40.1.244858.3.579.2.462 Unknown [id number] 2.16.8 40.1.011088.3.579.2.462 Unknown [id number] 2.16.8 40.1.792823.3.579.2.462 Unknown [id number] 2.16.8 40.1.103855.3.579.2.462 Unknown [id number] 2.16.8 40.1.846707.3.579.2.462 Unknown [id number] 2.16.8 40.1.667598.3.579.2.462 Unknown [id number] 2.16.8 [id number] Unknown [id number] 2.16.8 [id number] Social History Date Type Detail Facility Start: 12-06-2021 End: 12-09-2021 Tobacco smoking status VTIS Unknown if ever smoked [facility] Work Phone: Start: 1965 Sex Assigned At Male [facility] Start: 12-09-2021 Cigarettes [facility] Start: 08-28-2024 Tobacco smoking status Smokes tobacco daily (finding) [facility] Sex Assigned At Sex [facility] Start: 12-23-2022 Tobacco smoking status Light tobacco smoker (finding) [facility] Goals Date Patient Goal Desired Activity /State Functional Status Date Assessment Result Facility 09-20-2022 Functional Status Door open, Room check performed [facility] 09-20-2022 Functional Status [facility] 09-20-2022 Functional Status [facility] 09-19-2022 Functional Status Ambulation Repositions self [facility] 09-19-2022 Functional Status [facility] 09-19-2022 Functional Status Skin moisturizer [facility] 09-19-2022 Functional Status [facility] 09-19-2022 Functional Status 3am-7am [facility] 09-17-2022 Functional Status [facility] 09-17-2022 Functional Status Done [facility] 09-16-2022 Functional Status Sensory Deficits None A [facility] 12-09-2021 Functional status Ambulates [facility] Work Phone: 12-08-2021 Functional status None [facility] Work Phone: Mental Status Date Assessment Result Facility 09-20-2022 Mental Status Orientation Oriented x 4 [facility] 09-20-2022 Mental Status [facility] 09-20-2022 Mental Status [facility] 09-19-2022 Mental Status Orientation Asse ssment Oriented x 4 [facility] 09-18-2022 Mental Status [facility] 09-18-2022 Mental Status [facility] 12-09-2021 Cognitive function Voice/Name [facility] Work Phone: Clinical Notes 12-09-2021 to 08-28-2024 Note Date & Type Note Facility 08-28-2024 Consult note [facility] 08-28-2024 Discharge summary [facility] 08-28-2024 Radiology Diagnostic study note [facility] Imaging Services [address] [place] [address] Foot min 3 Views MR#: [id number] Acct: [id number] Name: OLIVER CRAMER II Rep #: [id number] : 1965 M 59 From: Mahad Romero MD PCP: [facility] Status: REG ER Study:Foot min 3 Views Date of Exam: Exam# [id number] Ordering Dr: Johnnie Caballero DO PROCEDURE: RIGHT [...] phalanx, suspicious for associated osteomyelitis. Reading Location: [id number] CC: Dr. Johnnie Vines, DO; [facility] ~ Tab Builder: Signed [facility] 08-28-2024 Discharge summary Note Date/Time August 28, 2024 5:46pm [facility] Medical Records Department [address] [place] [address] Emergency Department Summary 08/28/24 MR#: [id number] Acct: [id number] Name: OLIVER CRAMER II Rep #:[id number] : 1965 59 From: Johnnie Diggs ggett DO PCP: [facility] Status:REG ER Location: ED HPI History of Present Illness Chief Complaint: Lower Extremity Injury Narrative Narrative: Chief complaint and HPI: Right foot infection. 59-year-old male with past medical history of DM2, HTN, HLD, CHF presents for evaluation of right foot infection. Patient states he follows with a podiatry at [facility] in [place], he does not have the operational intelligence officer name. He states several days ago he [...] intact Psych: Cooperative, appropriate mood and affect [facility] Medical History (Updated 12/17/21 @ 00:01 by [...] he follows with a podiatry at the [facility] in [place], he does not have the operational intelligence officer name. He states several days ago he [...] 77.5 H Lymph % (Auto) 13.4 L Calloway % (Auto) 7.6 Eos % (Auto) 0.6 [...] phalanx, suspicious for associated osteomyelitis. Reading Location: [id number] Discharge Plan Triage Chief Complaint: Lower Extremity Injury ED Provider: Johnnie Vines Dx/Rx/DC Orders Prescriptions: No Action metformin 500 mg Tablet 1,000 mg PO BIDCM trazodone 50 mg Tablet 50 mg PO QHS gabapentin 300 mg Capsule 300 mg PO TID fluticasone propionate 50 mcg/actuation [place],Suspension 2 spray INTRANASAL DAILY ascorbic acid (vitamin [...] 25 mg PO DAILY [facility] Referrals: [facility] [Primary Care Provider] - Print Language: Georgian What to do if you have Problems For any increased pain, shortness of breath, bleeding, nausea or vomiting, chestpain, or any unexpected problems, contact your Primary Care Provider. Call [facility] ([phone]) or report to the closest Emergency Room. Call 911 if necessary. 08/28/24 1746 <Electronically signed by Johnnie Vines DO> Cosigner Signature (if applicable): CC: [facility] ~ Signed [facility] Work Phone: 1(585) 913-998901-09-2024 Note* Exam Date Time Procedure Performing Provider Status 02/16/23 10:34 AM Echocardiogram, Adult - CV Auth (Verified) [facility] 08-14-2023 Note. MICRO - Microbiology PROCEDURE: Blood [...] Locations *1: This test was performed at: [address], [address] [place], [place] [address]-21-2022 Note. MICRO - Microbiology PROCEDURE: Blood Culture [...] Locations *1: This test was performed at: [address], [address] [place], [place] [address]-20-2022 Hospital Discharge instructions Patient Education 09/20/2022 12:29:24 [...] cases. Follow these instructions at home: Take fahb-mlo-gaxpasd and prescription medicines only as told by [...] 01/25/2006 Document Revised: 01/07/2018 Document Reviewed: 01/11/2017 [employer] Patient Education MyCare. Follow Up Care 09/16/2022 12:27:06 With:Follow up with primary care provider Address:Unknown When:1-2 days With:ERIN DYE MD Address: [address] [facility] [address] [place] [phone] When:5 to 7 days Comments:Follow up with general cardiology within 1 week. With:VANESSA KO MD Address: [address] [facility] [place] [address] [place] [phone] When:5 to 7 days Comments:Follow up with advanced heart failure team within 1 week. [facility] 08-13-2023 Note Discharge Instructions Thank you for allowing [facility] to assist you with your healthcare needs. [...] general cardiology within 1 week. Where: [address] [facility] [address] [place] [phone] Follow Up with VANESSA KO MD When Within 5 to 7 days Why: Follow up with advanced heart failure team within 1 week. Where: [address] [facility] [place] [address] [place] [address] [phone] The Following Activity and Diet Have Been [...] times a day Refills: 3 Pickup at [facility]/pharmacy #[id number] New empagliflozin (Jardiance 10 mg oral tablet) 1 tab(s) by mouth Once a day (in the morning) Refills: 1 Pickup at [facility]/pharmacy #[id number] New sacubitril-valsartan (Entresto 49 mg-51 mg oral tablet) 1 tab(s) by mouth Two (2) times a day Refills: 3 Pickup at [facility]/pharmacy #[id number] Changed atorvastatin (atorvastatin 80 mg oral tablet) 1 tab(s) by mouth Daily at bedtime Pickup at [facility]/pharmacy #[id number] Changed clopidogrel (clopidogrel 75 mg oral tablet) 1 tab(s) by mouth Once a day Pickup at [facility]/pharmacy #[id number] Changed spironolactone (spironolactone 25 mg oral tablet) 1 tab(s) by mouth Once a day Pickup at [facility]/pharmacy #[id number] Changed traZODone (traZODone 50 mg oral tablet) [...] by mouth Daily at bedtime Pharmacy Information [facility]/pharmacy #[id number]: [address] [place], [place] [phone] What How Much When Comments Stop Taking [...] You should not use spironolactone if you Harmon's disease, high levels of potassium in your [...] may report side effects to FDA at 5-105-ERG-3885. What other drugs will affect spironolactone? Using [...] drugs may affect spironolactone, including prescription and fvka-fgw-afypukc medicines, vitamins, and herbal products. Not all [...] to ensure that the information provided by [employer]. ('[employer]') is accurate, up-to-date, and complete, but no guarantee is made to that effect. Drug information contained herein may be time sensitive. [employer] information has been compiled for use by healthcare practitioners and consumers in the [place] and therefore [employer] does not warrant that uses outside of the [place] are appropriate, unless specifically indicated otherwise. [employer] drug information does not endorse drugs, diagnose patients or recommend therapy. [employer] drug information isan informational resource designed to [...] effective or appropriate for any given patient. [employer] does not assume any responsibility for any aspect of healthcare administered with the aid of information [employer] provides. The information contained herein is not intended to cover all possible uses, directions, precautions, warnings, drug interactions, allergic reactions, or adverse effects. If you have questions about the drugs you are taking, check with your doctor, nurse or pharmacist. Copyright 9265-7010 [employer]. Version: .. Revision Date: 04/22/2019. sacubitril and [...] angioedema; or if you are on a xew-uwnj-vmlv. Do not use if you are , [...] have an allergic reaction if you are -Sudanese. Also call your doctor at once if [...] may report side effects to FDA at 6-262-TRM-0236. What other drugs will affect sacubitril and [...] affect sacubitril and valsartan, including prescription and loke-ivz-kzxqryq medicines, vitamins, and herbal products. Not all [...] to ensure that the information provided by [employer]. ('[employer]') is accurate, up-to-date, and complete, but no guarantee is made to that effect. Drug information contained herein may be time sensitive. [employer] information has been compiled for use by healthcare practitioners and consumers in the [place] and therefore [employer] does not warrant that uses outside of the [place] are appropriate, unless specifically indicated otherwise. [employer] drug information does not endorse drugs, diagnose patients or recommend therapy. [employer] drug information isan informational resource designed to [...] effective or appropriate for any given patient. [employer] does not assume any responsibility for any aspect of healthcare administered with the aid of information [employer] provides. The information contained herein is not intended to cover all possible uses, directions, precautions, warnings, drug interactions, allergic reactions, or adverse effects. If you have questions about the drugs you are taking, check with your doctor, nurse or pharmacist. Copyright 3124-4800 [employer]. Version: 5.01. Revision Date: 05/20/2020. clopidogrel (kloe [...] may report side effects to FDA at 1-599-VBO-8215. What other drugs will affect clopidogrel? Sometimes it is not safe to use certain medications at the same time. Some drugs can affect your blood levels of other drugs you take, which may increase side effects or make the medications less effective. Tell your doctor about all your other medicines, especially: a stomach acid rigging man such as omeprazole, Nexium, or Prilosec; an antidepressant such as citalopram, fluoxetine, sertraline, Cymbalta, Effexor, Lexapro, Pristiq, or Prozac; rifampin; a blood thinner--warfarin, Coumadin, Jantoven; or NSAIDs (nonsteroidal anti-inflammatory drugs)--aspirin, ibuprofen (Advil, Motrin), naproxen (Aleve), celecoxib, diclofenac, indomethacin, meloxicam, and others. This list is not complete. Other drugs may affect clopidogrel, including prescription and dtws-opm-pbipdxg medicines, vitamins, and herbal products. Not all [...] to ensure that the information provided by [employer]. ('[employer]') is accurate, up-to-date, and complete, but no guarantee is made to that effect. Drug information contained herein may be time sensitive. [employer]Comm information has been compiled for use by healthcare practitioners and consumers in the [place] and therefore [employer] does not warrant that uses outside of the [place] are appropriate, unless specifically indicated otherwise. [employer] drug information does not endorse drugs, diagnose patients or recommend therapy. [employer] drug information isan informational resource designed to [...] effective or appropriate for any given patient. [facility] does not assume any responsibility for any aspect of healthcare administered with the aid of information [facility] provides. The information contained herein is not intended to cover all possible uses, directions, precautions, warnings, drug interactions, allergic reactions, or adverse effects. If you have questions about the drugs you are taking, check with your doctor, nurse or pharmacist. Copyright 9415-4036 [employer]. Version: 18.01. Revision Date: 05/08/2020. apixaban (a PIX a ban) Renato What is the most important information I should know about apixaban? Apixaban increases your risk of severe or fatal bleeding, especially if you take certain medicines at the same time (including some ncvh-ghi-sfjnkrf medicines). Tell your doctor about all medicines [...] may report side effects to FDA at 6-750-XXN-6769. What other drugs will affect apixaban? Sometimes it is not safe to use certain medications at the same time. Some drugs can affect your blood levels of other drugs you take, which may increase side effects or make the medications less effective. Many other drugs (including some szik-qcg-ikpazsc medicines) can increase your risk of bleeding or blood clots. Tell your doctor about all medicines you have recently used, especially: any other medicines to treat or prevent blood clots; a blood thinner such as heparin or warfarin (Coumadin, Jantoven); an antidepressant; or aspirin or other NSAID (nonsteroidal anti-inflammatory drug) used prison. This list is not complete and many other drugs may affect apixaban. This includes prescription and uuau-gxr-miwgxua medicines, vitamins, and herbal products. Not all [...] to ensure that the information provided by [employer]. ('[employer]') is accurate, up-to-date, and complete, but no guarantee is made to that effect. Drug information contained herein may be time sensitive. [employer] information has been compiled for use by healthcare practitioners and consumers in the [place] and therefore [employer] does not warrant that uses outside of the [place] are appropriate, unless specifically indicated otherwise. [employer] drug information does not endorse drugs, diagnose patients or recommend therapy. [employer] drug information isan informational resource designed to [...] effective or appropriate for any given patient. [employer] does not assume any responsibility for any aspect of healthcare administered with the aid of information [employer] provides. The information contained herein is not intended to cover all possible uses, directions, precautions, warnings, drug interactions, allergic reactions, or adverse effects. If you have questions about the drugs you are taking, check with your doctor, nurse or pharmacist. Copyright 6514-4264 [employer]. Version: 6.01. Revision Date: 10/01/2020. Education Materials [...] cases. Follow these instructions at home: Take hkkz-vuv-xgfwses and prescription medicines only as told by your health care provider. Do not use any products that contain nicotine or tobacco, such as cigarettes and e-cigarettes. If you need help quitting, ask your health care provider. Limit alcohol intake to no more than 1 drink per day for non women and 2 drinks per day forme (more content not included)... [id number] Discharge summary Date of Service 09/20/22 Discharge Diagnosis Heart failure, unspecified (I50.9 - ICD-10-CM) Hypo-osmolality and hyponatremia (E87.1 - ICD-10-CM) Hypertensive emergency (I16.1 - ICD-10-CM) Other nonspecific abnormal finding of lung field (R91.8 - ICD-10-CM) Hypotension, unspecified (I95.9 - ICD-10-CM) Type 2 diabetes mellitus without complications (E11.9 - ICD-10-CM) SOB - Shortness of breath ([id number] - PNED) Additional Orders: Ordered: Aldactone,Start: 09/20/22 [...] BID, # 60 tab(s), 3 Refill(s), Pharmacy: [facility]/pharmacy #[id number], 182.9, cm, 09/16/22 20:27:00 EDT, Height, 94.5, kg, 09/16/22 20:27:00 EDT, Dosing Weight Discontinued: Entresto 24 mg-26 mg oral tablet,Start: 09/19/22 12:33:00 EDT, Dose = 1 tab(s), Tab, Oral, BID, NOW, 09/19/22 12:33:00 EDT Discontinued: Entresto 24 mg-26 mg oral tablet,Dose = 1 tab(s), Oral, BID, # 60 tab(s), 1 Refill(s), Pharmacy: [facility]/pharmacy #[id number], 182.9, cm, 09/16/22 20:27:00 EDT, Height, kg, 09/16/22 20:27:00 EDT, Dosing Weight Ordered: Entresto 49 mg-51 mg oral tablet,Start: 09/20/22 21:00:00 EDT, Dose = 1 tab(s), Tab, Oral,BID, 09/20/22 21:00:00 EDT Ordered: Entresto 49 mg-51 mg oral tablet,Dose = 1 tab(s), Oral, BID, # 60 tab(s), 3 Refill(s), Pharmacy: [facility]/pharmacy #[id number], 182.9, cm, 09/16/22 20:27:00 EDT, Height, kg, [...] qAM, # 30 tab(s), 1 Refill(s), Pharmacy: [facility]/pharmacy #[id number], 182.9, cm, 09/16/22 20:27:00 EDT, Height, kg, 09/16/22 20:27:00 EDT, Dosing Weight Discontinued: atorvastatin 80 mg oral tablet,Dose : 80 mg = 1 tab(s), Oral, qHS Ordered: atorvastatin 80 mg oral tablet,Dose : 80 mg = 1 tab(s), Oral, qHS, # 30 tab(s), 1 Refill(s), Pharmacy: [facility]/pharmacy #[id number], 182.9, cm, 09/16/22 20:27:00 EDT, Height, kg, 09/16/22 20:27:00 EDT, Dosing Weight Discontinued: carvedilol 12.5 mg oral tablet,Dose : 12.5 mg = 1 tab(s), Oral, BID Discontinued: clopidogrel 75 mg oral tablet,Dose : 75 mg = 1 tab(s), Oral, qDay Ordered: clopidogrel 75 mg oral tablet,Dose : 75 mg = 1 tab(s), Oral, qDay, # 30 tab(s), 1 Refill(s), Pharmacy: [facility]/pharmacy #[id number], 182.9, cm, 09/16/22 20:27:00 EDT, Height, kg, [...] qDay, # 30 tab(s), 1 Refill(s), Pharmacy: [facility]/pharmacy #[id number], 182.9, cm, 09/16/22 20:27:00 EDT, Height, kg, [...] cardiology within 1 week. Where: [address] [facility] [address] [facility] [place] [address]- [phone] Follow Up with VANESSA KO MD When Within 5 to 7 days Why: Follow up with advanced heart failure team within 1 week. Where: [address] [facility] [place] [address]- [phone] Follow Up Appointments No qualifying data available. [...] PM Digitally Signed by BARBRA CHRISTIANSEN MD [id number] Infectious disease Progress note Date of Service [...] Result Date: September 19, 2022 Verified By: CALRIN RAMOS MD CLINICAL STATEMENT: IMPRESSION: Lack of [...] and the patient will follow with the [place] clinic closely and will see his primary [...] FERRO BA, MD on 09/20/2022 12:03 PM [id number] Surgery Consult note Date of Service 09/20/2022 [...] 10%. He was taken urgently to the [facility] for a heart cath showing a normal [...] by ANITA BLACK on 09/20/2022 07:57 AM [id number] Surgery Consult note Date of Service 09/20/2022 [...] 10%. He was taken urgently to the [facility] for a heart cath showing a normal [...] by ANITA BLACK on 09/20/2022 07:57 AM [id number] Cardiology Progress note Date of Service 09/19/2022 [...] PM Digitally Signed by BARBRA CHRISTIANSEN MD [facility]edoAaloscqn33-26-1945 Infectious disease Progress note Subjective Patient seen [...] FERRO BA, MD on 09/19/2022 02:02 PM [facility]edoYbtcjfmx73-70-2827 Note ORIGINAL EXAMINATION: HIDA09/19/2022 9:22 am TECHNIQUE: [...] Date: 09/19/2022 12:44:31 PM Ordering Provider: [facility]ALLEROGrand [facility] HospitalMcdjxhzp80-48-6496 Cardiology Progress note Subjective Doing well. Denies [...] MIGUELINA BROWN MD on 09/18/2022 12:17 PM [facility]edoCkgiqtol88-71-3984 NoteSINUS RHYTHM PROBABLE LEFT ATRIAL ENLARGEMENT LVH WITH SECONDARY REPOLARIZATION ABNORMALITY ANTERIOR ST ELEVATION, PROBABLY DUE TO LVH BORDERLINE PROLONGED QT INTERVAL Electronic Signature: MILLER VIEIRA MD 09/19/2022 20:46:[facility]iology Progress note Date of [...] JOSE GEIGER MD on 09/18/2022 04:33 PM [facility]edoSzdwngcn80-66-3568 Cardiology Progress note Date of Service 09/18/2022 [...] JOSE GEIGER MD on 09/18/2022 04:33 PM [facility]edoFbfmhpjx76-43-8383 Infectious disease Progress note Date of Service [...] Katia Maldonado RN on 09/18/2022 01:01 PM [facility]Xlczvbwa42-92-0793 Infectious disease Progress note Date of Service [...] Katia Maldonado RN on 09/18/2022 01:01 PM [facility]edoDtobjcab68-00-0473 Cardiology Progress note Subjective Doing well. Denies [...] MIGUELINA BROWN MD on 09/18/2022 12:17 PM [facility]edoVuwsfxej60-92-0619 Pulmonary Progress note Date of Service 09/18/22 [...] NANCIE YOON MD on 09/18/2022 12:00 PM [facility]edoMtwnblpf40-98-0862 Note. MICRO - Microbiology PROCEDURE: Culture Respiratory [...] Locations *1: This test was performed at: [facility], [address] [place] [address], [id number] , [facility] ([place])09-18-2022 Note ORIGINAL EXAMINATION: COMPLETE ABDOMINAL ULTRASOUND 09/18/2022 [...] Sign Date: 09/18/2022 11:30:45 AM Ordering Provider: [facility]08-11-2023 Note. MICRO - Microbiology PROCEDURE: [...] Locations *1: This test was performed at: [facility], [address] [place] [address], [phone]- , [facility] ([place])09-17-2022 Cardiology Consult note Date of Service 09/17/2022 [...] JOSE GEIGER MD on 09/17/2022 04:24 PM [id number] Cardiology Consult note Date of Service 09/17/2022 [...] JOSE GEIGER MD on 09/17/2022 04:24 PM [facility]edoBvakutby04-59-1460 HCoV 229E RNA M[place]ISON+non-probe Ql (Nph)Not Detected *NA* (09/17/22 12:55 PM) Auto Viro/Sero [id number] Critical care medicine Consult note Date of [...] DEXTER WILEY MD on 09/17/2022 12:27 PM [facility]edoRlqdzqgt82-46-1753 Infectious disease Consult note Date of Service [...] FERRO BA, MD on 09/17/2022 05:39 PM [facility]edoRrywhmqk56-09-9454 Note ORIGINAL EXAMINATION: ONE XRAY VIEW OF [...] Sign Date: 09/17/2022 7:50:15 AM Ordering Provider: [facility]08-09-2023 Note. MICRO - Microbiology PROCEDURE: Legionella [...] Locations *1: This test was performed at: [facility], [address] [place] [address], [id number] , [facility] ([place])09-16-2022 Note. MICRO - Microbiology PROCEDURE: Streptococcus Pneumoniae [...] Locations *1: This test was performed at: [facility], [address] [place] [address], [facility] , [facility] ([place])09-16-2022 NoteSINUS RHYTHM ANTERIOR Q WAVES, POSSIBLY DUE TO LVH LVH W/ REPOL ABNORMALITIES, POSSIBLE ISCHEMIA PROLONGED QT INTERVAL Electronic Signature: VANESSA KO MD 09/17/2022 09:17:59[facility] 08-09-2023 Note ORIGINAL EXAMINATION: ONE XRAY VIEW [...] Date: 09/16/2022 7:32:44 PM Ordering Provider: MIGUELINA DIAZSOU[facility] CENTERjoniPremier Health [facility] SouthAbbjttmi33-33-5557 Procedure note Procedure Name Central Line placement [...] MIGUELINA BROWN MD on 09/16/2022 06:19 PM [id number] Procedure note Procedure Name A-Line placement Consent [...] MIGUELINA BROWN MD on 09/16/2022 06:12 PM [id number] Note* Exam Date Time Procedure Performing Provider Status 09/16/22 6:10 PM Cardiac Catheterization -CV Auth (Verified) [facility] 08-09-2023 Procedure note Date of Service 09/16/2022 13:01:41 Procedure Note - Endotracheal Intubation: The patient was lying in the supine position. Preoxygenation via lfq-jylln-opef was provided. The patient had continuous cardiac [...] BASSAM AGUILERA DO on 09/16/2022 01:02 PM [facility]edoIbmiueck75-58-9782 Note* Exam Date Time Procedure Performing Provider Status 09/16/22 2:21 PM Echocardiogram, Adult - CV Auth (Verified) [facility] 08-09-2023 Evaluation + Plan noteExtracted from: Title:History [...] cardiac intensive care unit for further care. [facility] 08-09-2023 History and physical note Date of Service 09/16/2022 Chief Complaint complains of increased sob over a few weeks, patient at [facility] and the sent him here via ems History of Present Illness This is a 57 gentleman history of diabetes mellitus who normally gets his care at the [place] comes to the ER with complaints of [...] ERIN DYE MD on 09/16/2022 01:44 PM [id number] Note ORIGINAL EXAMINATION: ONE SUPINE XRAY VIEW(S) [...] Sign Date: 09/16/2022 1:37:04 PM Ordering Provider: [facility]08-09-2023 Note ORIGINAL EXAMINATION: ONE XRAY VIEW OF [...] Sign Date: 09/16/2022 1:25:21 PM Ordering Provider: [facility]08-09-2023 Procedure note Date of Service 09/16/2022 13:01:41 Procedure Note - Endotracheal Intubation: The patient was lying in the supine position. Preoxygenation via pwn-tzldv-ytaf was provided. The patient had continuous cardiac [...] BASSAM AGUILERA DO on 09/16/2022 01:02 PM [facility]edoVcgjzcpz51-73-0739 NoteECTOPIC ATRIAL TACHYCARDIA, UNIFOCAL LEFT VENTRICULAR HYPERTROPHY ANTERIOR INFARCT, ACUTE (LAD) PROLONGED QT INTERVAL Electronic Signature: ANITA ZAVALA MD 09/16/2022 12:51:46[facility] 11-01-2022 [facility] Medical Records Department [address] [place] [address] Discharge Summary 12/09/21 1321 MR#: [id number] Acct: [id number] Name: OLIVER CRAMER II Rep #: [id number] : 1965 56 From: Jesus Aguila MD PCP: [facility] Status:DIS IN Location: [facility] [id number] Providers Date of Admission: 12/06/21 Date of Discharge: 12/09/21 Primary Care Physician: [facility] Consultations 12/06/21 17:59 Consult: Cardiology Routine [...] have chest pain or shortness of breath.??? Brake Mechanic was consulted in ED who recommended transfer [...] t did not want to go for [place] but agreed that sooner, timely transfer is important for the care rather than waiting here for several days to transfer to [facility].??? Patient came to [facility] and convinced the patient. 12/08: Patient [...] statin. No anticoagulant re (more content not included)...[facility] Meng [facility]velar [facility] Note Date/Time August 28, 2024 6:19 pm [facility] Medical Records Department [address] [place] [address] Consultation 08/28/241806 MR#: [id number] Acct: [id number] Name: OLIVER CRAMER II Rep #:[id number] : 1965 59 From: Meng Avelar DPM PCP: [facility] Status:[facility] Location: [place] [address] Assessment & Plan Assessment/Plan (1) Cellulitis of [...] be admitted to the hospital medicine team. [facility] Medical History (Updated 08/28/24 @ 18:17 [...] (Auto) 77.5 H, Lymph % (Auto) 13.4L, Calloway % (Auto) 7.6, Eos % (Auto) 0.6, [...] phalanx, suspicious for associated osteomyelitis. Reading Location: [id number] 08/28/241818 <Electronically signed by Meng Avelar DPM> Cosigner Signature (if applicable): CC: [facility]~ Signed ADDENDUM by MAIA Avelar on 08/28/24 at 181 Addendum Discussed with anesthesia team and also hospitalist. 08/28/241818<Electronically signed by Meng Avelar DPM> Cosigner Signature (if applicable): cc: [facility] ~* Signed [facility] Work Phone: Evaluation + Plan note Future Appointments Appointment Date:03/02/2023 10:00:00 AM Scheduled Provider: Location:RAD Appointment Type:CV Procedure - AOH Echo [facility] Evaluation + Plan note Future Appointments Appointment Date:05/13/2023 01:45:00 PM Scheduled Provider: Location:CVC CAN Appointment Type:CV OV [facility] Evaluation note* Diagnosis Onset Date Resolution Status Acute CVA (cerebrovascular accident) acute Acute electrocardiogram changes acute Elevated troponin acute Non-STEMI (non-ST elevated myocardial infarction) acute [facility] Work Phone: Evaluation note* Diagnosis Onset Date Resolution Status Acute CVA (cerebrovascular accident) acute Acute electrocardiogram changes acute CHF (congestive heart failure) acute Diabetes mellitus acute Elevated troponin acute HLD (hyperlipidemia) acute Left ventricular systolic dysfunction (LVSD) acute Non-STEMI (non-ST elevated myocardial infarction) acute HTN (hypertension) chronic [facility] Work Phone: Evaluation note* Diagnosis Onset [...] peripheral vascular diseases acute August 28 6:20pm [facility] Work Phone: Hospital course Narrative No data available for this section [facility] Discharge instructions No data available for this section [facility] Progress note No data available for this section [facility] Reason for referral (narrative)No reason for referral information availableWKettering Health [facility] Work Phone: Summary Purpose Family History Relationship Condition Age at Onset Recorded Date/T ben Not Specified Diabetes mellitus Unknown Cardiac disease Unknown Hypertension Unknown Advance Directives Advance Directive Response Recorded Date/ Time Living Will No December 06 2:04pm Power of Film Numberer No December 06, 2021 2:04pm Advance Directive Response Recorded Date/ Time Living Will No December 06 6:17pm Power of Film Numberer No December 06, 2021 6:17pm Advance Directive Response Recorded Date/ Time Do you have a Healthcare Power of Film Numberer? No August 28, 2024 4:43pm Chief Complaint [...] section and content) DATE CREATED AUTHOR 07/27/2017 [facility] DATE CREATED AUTHOR AUTHOR'S ORGANIZ ATION 12/09/2021 [facility] DATE CREATED AUTHOR AUTHOR'S ORGANIZ ATION 01/05/2022 [facility] DATE CREATED AUTHOR AUTHOR'S ORGANIZ ATION 05/13/2023 [facility] ([place]) Patient Care team informatio n (unrecognized section and content) Team Status: Active Member Role/Relationship Status Dates [facility] Primary Care Provider Active Team Status: Active Member Role/Relationship Status Dates [facility] Primary Care Provider Active Start: August 28, [...] BE BASED ON THE PRIMARY CLINICAL RECORDS. [facility] provides no warranty or guarantee of the accuracy or completeness of information in this document.
[2024-08-29 02:41] VITALS: BP 137/73; PULSE 61; RESP 16; TEMP 36.7; O2SAT 96
[2024-08-29] MEDS: Vancomycin HCl 1,000 MG in 0.9% Normal Saline (250mL Bag) 250 ML 250 MG IV ×2 (04:38→16:56)
[2024-08-29] MEDS: Clindamycin 900 MG/50 ML BAG 75 MG IV ×3 (05:46→21:49)
[2024-08-29 06:00] VITALS: BMI 27.6
[2024-08-29 06:05] LABS: Hematocrit 28.3 % (40-54); Hemoglobin 9.4 g/dL (13.0-16.5); Immature Granulocytes Count 0.060 X10^3/uL (0.0-0.0); Mean Corp Hgb Conc 33.2 g/dL (32-36); Mean Corpuscular Volume 87.6 fL (80-94); Mean Platelet Vol. 9.9 fl (6.2-12.0); NRBC Flagged by Analyzer 0 % (0-5); Platelet Count 338 K/mm3 (150-450); RBC Distribution Width CV 12.5 % (11.6-14.6); RBC Distribution Width SD 40.1 fl (35.1-43.9); Red Blood Count 3.23 M/mm3 (4.6-6.2); White Blood Count 10.4 K/mm3 (4.4-11.0)
[2024-08-29 06:20] LABS: Anion Gap 13 (5-15); BUN 25 mg/dL (4-19); BUN/Creat Ratio 12.5 RATIO (10-20); Calcium,Total 8.1 mg/dL (7.6-11.0); Carbon Dioxide 20.1 mmol/L (21.0-32.0); Chloride 104 mmol/L (98-108); Estimated Creatinine Clearance 49.20 ml/min (50-250); Glucose 135 mg/dL (70-99); Potassium 3.9 mmol/L (3.3-5.1)
[2024-08-29] MEDS: Piperacil/Tazobactam 3.375 GM in 0.9% Normal Saline (50mL MB+) 50 ML IV (06:34)
[2024-08-29 06:48] LABS: CRP 106.00 mg/L (0.0-3.0)
[2024-08-29 08:40] VITALS: BP 141/77; PULSE 60; RESP 16; TEMP 36.8; O2SAT 98
[2024-08-29] MEDS: Fluticasone 0.05% 1 SPRAY NASAL.SRY 2 SPRAY NASAL (08:55)
[2024-08-29] MEDS: SACUBITRIL/VALSARTAN 97-103 MG TABLET 1 EACH PO ×2 (08:55→21:50)
--- NOTE | 2024-08-29 09:27 | WOUNDNOTE ---
wound photo: right great toe
--- NOTE | 2024-08-29 09:27 | WOUNDNOTE ---
wound photo: right great toe
--- NOTE | 2024-08-29 09:28 | WOUNDNOTE ---
wound photo: right great toe
--- NOTE | 2024-08-29 10:00 | CASEMGMT ---
AKILA MAYES Assessment: Face to Face with pt for initial transition planning/care coordination assessment. AKILA MAYES introduced self and role at [facility], pt voices understanding and consents to assessment. Pt is A&O x4 and answers all questions appropriately at this time. Pt sitting up in bed in no distress. Pt states he feels loopy. Care providers, pharmacy, and demographics verified/updated. Admitting Dx: R great toe infection Strata Score: 2 PCP:[facility] [place] Specialists: Pt has a pod and cardio at [facility]. Preferred Pharmacy: [facility] Insurance: VA benefit Prescription Benefit: none unless meds obtained from [facility] LNOK: Elsy Mohr, sig other Living Arrangements: Pt lives with sig other and her mother in a single story home with 4 steps to enter with a rail. Pt reports he typically is I in ADLS/IADLS. Pt denies concerns at home. Transportation: Pt drives self and denies concerns with transportation. DME:cane, BP cuff, BGM with sufficient strips and lancets HHC/SNF: Denies hx of Pt states no concerns with going home at time of dc. Pt states no further concerns/needs. CM to follow. Advised pt to ask CM if any further questions/concerns/needs arise, voices understanding. Pt Goal: Home Plan: Home, follow therapy Jazzy WILBURN CM
--- NOTE | 2024-08-29 10:39 | PCM.CONS.GEN ---
Assessment & Plan Assessment/Plan (1) Acute osteomyelitis of toe of right foot: PLAN: Now s/p distal R 1st toe amputation 08/28/[address] Avelar. Will narrow to vanc/unasyn. Plan on short course po abx at discharge (tentative plan on 1 week po doxy and augmentin) given good source control. Will follow, thank you (2) Diabetes mellitus with diabetic polyneuropathy: HPI Consult Data Date of Consult: 08/29/24 HPI Narrative Reason for Consultation: osteo HPI Narrative: OLIVER CRAMER, is a 59 M with DM neuropathy, presented 08/28 to ED with one week progressive swelling and redness of R 1st toe. No known inciting event, no drainage. Developed some associated fever and chills, no recent abx. Taken to OR 08/[address] Avelar for distal amp. On vanc/zosyn, feeling better this AM, no pain. Full ROS performed and neg except as noted above. [facility] Medical History Redness of skin Rash Diabetes Easy bruising Stroke/cerebrovascular accident Diabetes mellitus HTN (hypertension) HLD (hyperlipidemia) CHF (congestive heart failure) Left ventricular systolic dysfunction (LVSD) Non-STEMI (non-ST elevated myocardial infarction) Acute CVA (cerebrovascular accident) Congestive heart failure Diabetes mellitus, type 2 Dyslipidemia Depression Anxiety Smoker Hypertension Home Medications ?Medication ?Instructions ?Recorded ?Last Taken ?Type fluticasone propionate 50 2 spray intranasal DAILY allergies 07/24/20 08/28/24 History mcg/actuation nasal spray,suspension gabapentin 300 mg capsule 300 mg PO TID neuropathy 07/24/20 08/28/24 History metformin 500 mg tablet 1,000 mg PO BIDCM diabetes 07/24/20 08/28/24 History trazodone 50 mg tablet 50 mg PO QHS sleep 07/24/20 08/27/24 History carvedilol 6.25 mg tablet 6.25 mg PO BID #60 tabs 07/26/20 08/28/24 Rx nitroglycerin 0.4 mg sublingual 0.4 mg sublingual Q5M PRN 07/26/20 Unknown Rx tablet Cardiac/Chest Pain #30 tabs spironolactone 25 mg tablet 25 mg PO DAILY #30 tabs 07/26/20 08/28/24 Rx aspirin 81 mg chewable tablet 81 mg PO BREAKFAST #30 tabs 12/09/21 08/28/24 Rx atorvastatin 80 mg tablet 80 mg PO QHS #30 tabs 12/09/21 08/27/24 Rx ciclopirox 8 % topical solution 1 applic topical DAILY 08/28/24 08/28/24 History (Ciclodan) empagliflozin 25 mg tablet 25 mg PO DAILY 08/28/24 08/28/24 History (Jardiance) hydrophilic cream 1 applic topical TID PRN dry skin 08/28/24 08/28/24 History omeprazole 20 mg capsule,delayed 20 mg PO DAILY 08/28/24 08/28/24 History release paroxetine HCl 30 mg tablet 30 mg PO DAILY 08/28/24 08/27/24 History sacubitril 97 mg-valsartan 103 mg 1 tab PO BID 08/28/24 08/28/24 History tablet (Entresto) Allergy/AdvReac Type Severity Reaction Status Date / Time No Known Allergies Allergy Verified 08/28/24 15:37 Family History Other Diabetes Heart disease Hypertension Social History Smoking Status: Current every day smoker tobacco type: cigarettes Physical Exam Const alert, oriented x3 and no apparent distress General Appearance: cooperative HEENT normocephalic and head/scalp atraumatic Eyes PERRL and EOMs intact bilaterally Neck supple and No nodes Resp normal air movement and clear to auscultation bilaterally Cardio regular rate and regular rhythm GI soft to palpation, non-tender and non-distended Extremity General Extremity: Negative for edema Skin Skin Narrative: Foot wrapped Neuro CN's II-XII intact bilaterally Lab / Micro Data Attestation: I reviewed the patient's lab results. 08/29/24 05:36 08/29/24 05:36 Labs: Laboratory Results - last 24 hr 08/28/24 16:05: WBC 11.9 H, RBC 3.61 L, Hgb 10.4 L, Hct 31.1 L, MCV 86.1, MCH 28.8, MCHC 33.4, RDW Std Deviation 39.1, RDW Coeff of Prudence 12.5, Plt Count 357, MPV 9.9, Immature Gran % (Auto) 0.500, Neut % (Auto) 77.5 H, Lymph % (Auto) 13.4 L, [place] % (Auto) 7.6, Eos % (Auto) 0.6, Baso % (Auto) 0.4, Absolute Neuts (auto) 9.2 H, Absolute Lymphs (auto) 1.59, Nucleated RBC % 0, ESR 52 H, Sodium 134, Potassium 4.0, Chloride 98, Carbon Dioxide 21.8, Anion Gap 15, BUN 24 H, Creatinine 1.93 H, Estim Creat Clear Calc 50.47, Est GFR (MDRD) Non-Af 40 L, BUN/Creatinine Ratio 12.5, Glucose 201 H, Lactic Acid 1.3, Calcium 9.0, C-React Prot Ext Range 155.00 H 08/28/24 21:19: POC Glucose 157 H 08/29/24 05:36: WBC 10.4, RBC 3.23 L, Hgb 9.4 L, Hct 28.3 L, MCV 87.6, MCH 29.1, MCHC 33.2, RDW Std Deviation 40.1, RDW Coeff of Prudence 12.5, Plt Count 338, MPV 9.9, Immature Gran % (Auto) 0.600, Neut % (Auto) 75.4 H, Lymph % (Auto) 14.5 L, [place] % (Auto) 8.1, Eos % (Auto) 0.9, Baso % (Auto) 0.5, Absolute Neuts (auto) 7.8 H, Absolute Lymphs (auto) 1.50, Nucleated RBC % 0, ESR 27 H, Sodium 136, Potassium 3.9, Chloride 104, Carbon Dioxide 20.1 L, Anion Gap 13, BUN 25 H, Creatinine 1.98 H, Estim Creat Clear Calc 49.20 L, Est GFR (MDRD) Non-Af 39 L, BUN/Creatinine Ratio 12.5, Glucose 135 H, Calcium 8.1, C-React Prot Ext Range 106.00 H 08/29/24 06:41: POC Glucose 170 H Micro: Microbiology 08/28/24 20:00 Tissue - Toe Gram Stain - Final 08/28/24 20:00 Biopsy - Toe Gram Stain - Final Imaging Radiology Impression Foot X-Ray 08/28/24 16:32 IMPRESSION: 1. Soft tissue swelling and gas involving the 1st toe. 2. Ill-defined and irregular cortical margins along the anteromedial aspect of the right 1st distal phalanx, suspicious for associated osteomyelitis. Reading Location: [id number] Foot X-Ray 08/28/24 20:47 IMPRESSION: Postoperative changes from amputation at the proximal phalanx of the great toe. Reading Location: [id number]
[2024-08-29 14:00] VITALS: BP 183/86; PULSE 67; RESP 16; TEMP 36.6; O2SAT 95
--- NOTE | 2024-08-29 14:02 | PCM.PROGNOTE ---
Subjective Subjective Patient was seen today for follow up on right 1st toe partial amputation. He is resting in bed, no new complaints. He relates he is feeling better today. No complaints of f/c/n/v. Objective Data Objective Data Vital Signs: Vital Signs Temp Pulse Resp BP Pulse Ox O2 Del Method 98.2 F 60 16 141/77 H 98 Room Air 08/29/24 08:40 08/29/24 08:40 08/29/24 08:40 08/29/24 08:40 08/29/24 08:40 08/29/24 08:40 Oxygen Delivery Method Room Air Weight: 100.8 kg Body Mass Index (BMI) 27.6 Intake & Output: Intake and Output for Last 24 Hours 08/27/24 08/28/24 08/29/24 23:59 23:59 23:59 Intake Total 1690 / 1690 420 / 420 Output Total 1150 / 1150 Balance 1690 / 1390 -730 / -730 Lab / Micro Data 08/29/24 05:36 08/29/24 05:36 Labs: Laboratory Results - last 24 hr 08/28/24 16:05: WBC 11.9 H, RBC 3.61 L, Hgb 10.4 L, Hct 31.1 L, MCV 86.1, MCH 28.8, MCHC 33.4, RDW Std Deviation 39.1, RDW Coeff of Prudence 12.5, Plt Count 357, MPV 9.9, Immature Gran % (Auto) 0.500, Neut % (Auto) 77.5 H, Lymph % (Auto) 13.4 L, [place] % (Auto) 7.6, Eos % (Auto) 0.6, Baso % (Auto) 0.4, Absolute Neuts (auto) 9.2 H, Absolute Lymphs (auto) 1.59, Nucleated RBC % 0, ESR 52 H, Sodium 134, Potassium 4.0, Chloride 98, Carbon Dioxide 21.8, Anion Gap 15, BUN 24 H, Creatinine 1.93 H, Estim Creat Clear Calc 50.47, Est GFR (MDRD) Non-Af 40 L, BUN/Creatinine Ratio 12.5, Glucose 201 H, Lactic Acid 1.3, Calcium 9.0, C-React Prot Ext Range 155.00 H 08/28/24 21:19: POC Glucose 157 H 08/29/24 05:36: WBC 10.4, RBC 3.23 L, Hgb 9.4 L, Hct 28.3 L, MCV 87.6, MCH 29.1, MCHC 33.2, RDW Std Deviation 40.1, RDW Coeff of Prudence 12.5, Plt Count 338, MPV 9.9, Immature Gran % (Auto) 0.600, Neut % (Auto) 75.4 H, Lymph % (Auto) 14.5 L, [place] % (Auto) 8.1, Eos % (Auto) 0.9, Baso % (Auto) 0.5, Absolute Neuts (auto) 7.8 H, Absolute Lymphs (auto) 1.50, Nucleated RBC % 0, ESR 27 H, Sodium 136, Potassium 3.9, Chloride 104, Carbon Dioxide 20.1 L, Anion Gap 13, BUN 25 H, Creatinine 1.98 H, Estim Creat Clear Calc 49.20 L, Est GFR (MDRD) Non-Af 39 L, BUN/Creatinine Ratio 12.5, Glucose 135 H, Calcium 8.1, C-React Prot Ext Range 106.00 H 08/29/24 06:41: POC Glucose 170 H 08/29/24 11:08: POC Glucose 172 H Micro: Microbiology 08/28/24 20:00 Tissue - Toe Gram Stain - Final 08/28/24 20:00 Biopsy - Toe Gram Stain - Final Radiography Diagnostic Testing: Radiology Impression Foot X-Ray 08/28/24 16:32 IMPRESSION: 1. Soft tissue swelling and gas involving the 1st toe. 2. Ill-defined and irregular cortical margins along the anteromedial aspect of the right 1st distal phalanx, suspicious for associated osteomyelitis. Reading Location: [id number] Foot X-Ray 08/28/24 20:47 IMPRESSION: Postoperative changes from amputation at the proximal phalanx of the great toe. Reading Location: [id number] Physical Exam Const alert, oriented x3 and no apparent distress Constitutional Narrative: Right 1st toe s/p partial amputation which is open - there is no active bleeding, tissues a slightly dusky at surgical site, otherwise healthy and viable, there is stable dusky infarct dorsal 1st ray, no maloder, no fluctuance, no drainage, no purulence, no visible abscess to right foot or ankle, erythema and edema right foot is improved compared to yesterday, no acute ischemia to right foot. No breakdown or evidence of infection or acute ischemia left foot. Assessment & Plan Assessment/Plan (1) Cellulitis of right lower limb: (2) Gangrene, not elsewhere classified: (3) Acute osteomyelitis of toe of right foot: (4) Diabetes mellitus with diabetic polyneuropathy: (5) Other specified peripheral vascular diseases: PLAN: Plan Evaluation performed. Reviewed diagnostic findings. s/p open partial right 1st toe amputation on 08/28/2024 - site is stable at this time. Stable dusky infarct dorsal right foot 1st ray. Wound care right 1st toe amputation site: normal saline wet to dry gauze dressing changes to site BID No weightbearing right foot. Peripheral arterial disease: LEAS have been ordered, and vascular surgery has been consulted. Keep heels offloaded with pillow(s) while in bed to help prevent breakdown. Podiatry will continue to follow. Discussed with Dr. Lim.
[2024-08-29] MEDS: Ampicillin/Sulbactam 3 GM in 0.9% Normal Saline (100mL MB+) 100 ML IV ×2 (14:53→21:49)
[2024-08-29 16:56] VITALS: BP 135/78; PULSE 63
--- NOTE | 2024-08-29 18:54 | PN.HOSP_ITS ---
Reason for Visit Chief Complaint: Right toe pain, erythema, swelling Subjective Subjective Patient was seen and examined today, and I briefly talked with vascular surgery about his care, vascular surgery is waiting for lower extremity arterial studies to be performed before fully evaluating the patient. I talked briefly with podiatry today, the patient's great toe wound has been left open due to lack of bleeding from the wound during the surgery-it was worried that the wound would not heal if it was approximated. Objective Data Objective Data Vital Signs: Vital Signs Temp Pulse Resp BP Pulse Ox O2 Del Method 97.9 F 63 16 135/78 H 95 Room Air 08/29/24 14:00 08/29/24 16:56 08/29/24 14:00 08/29/24 16:56 08/29/24 14:00 08/29/24 14:00 Oxygen Delivery Method Room Air Weight: 100.8 kg Body Mass Index (BMI) 27.6 Intake & Output: Intake and Output for Last 24 Hours 08/27/24 08/28/24 08/29/24 23:59 23:59 23:59 Intake Total 1690 / 1690 1090 / 1090 Output Total 1150 / 1150 Balance 1690 / 1390 -60 / -60 Lab / Micro Data 08/29/24 05:36 08/29/24 05:36 Labs: Laboratory Results - last 24 hr 08/28/24 21:19: POC Glucose 157 H 08/29/24 05:36: WBC 10.4, RBC 3.23 L, Hgb 9.4 L, Hct 28.3 L, MCV 87.6, MCH 29.1, MCHC 33.2, RDW Std Deviation 40.1, RDW Coeff of Prudence 12.5, Plt Count 338, MPV 9.9, Immature Gran % (Auto) 0.600, Neut % (Auto) 75.4 H, Lymph % (Auto) 14.5 L, [place] % (Auto) 8.1, Eos % (Auto) 0.9, Baso % (Auto) 0.5, Absolute Neuts (auto) 7.8 H, Absolute Lymphs (auto) 1.50, Nucleated RBC % 0, ESR 27 H, Sodium 136, Potassium 3.9, Chloride 104, Carbon Dioxide 20.1 L, Anion Gap 13, BUN 25 H, C reatinine 1.98 H, Estim Creat Clear Calc 49.20 L, Est GFR (MDRD) Non-Af 39 L, BUN/Creatinine Ratio 12.5, Glucose 135 H, Calcium 8.1, C-React Prot Ext Range 106.00 H 08/29/24 06:41: POC Glucose 170 H 08/29/24 11:08: POC Glucose 172 H 08/29/24 16:52: POC Glucose 133 H Micro: Microbiology 08/28/24 20:00 Tissue - Toe Gram Stain - Final 08/28/24 20:00 Biopsy - Toe Gram Stain - Final Radiography Diagnostic Testing: Radiology Impression Foot X-Ray 08/28/24 20:47 IMPRESSION: Postoperative changes from amputation at the proximal phalanx of the great toe. Reading Location: [facility] Physical Exam Const alert, oriented x3 and no apparent distress General Appearance: cooperative, well kempt and well developed Orientation / Consciousness: awake, oriented to person, oriented to place and oriented to time HEENT normocephalic, head/scalp atraumatic and moist oral mucous membranes Eyes PERRL, EOMs intact bilaterally and conjunctivae normal Neck supple, no JVD, thyroid normal and no carotid bruits General: trachea midline Resp normal respiratory effort, no retractions, no use of accessory muscles and clear to auscultation bilaterally Auscultation: Negative for rales, rhonchi or wheezes Cardio regular rate, regular rhythm, S1 normal heart sound, S2 normal heart sound, no murmurs, no rub and no gallops GI normal to inspection, nondistended, normoactive bowel sounds, soft to palpation, non-tender and non-distended Extremity Extremity Narrative: Right foot is wrapped with surgical dressing, this was not removed for examination of the wound Neuro oriented x3, CN's II-XII intact bilaterally and no focal motor deficits Sensorium / Orientation: awake and alert Speech: speech normal Psych affect normal Assessment & Plan Assessment/Plan (1) Acute osteomyelitis of toe of right foot: PLAN: Plan 1. Osteomyelitis of the right great toe-status post partial amputation of the right great toe postop day #1-podiatry is participating in his care, infectious diseases saw the patient today and is directing antibiotic coverage. Vascular surgery will be seeing the patient for evaluation #2 type 2 diabetes-blood sugars will be monitored, sliding scale insulin will be administered as needed #3 diabetic neuropathy of the feet-complicates care, management, recovery, and prognosis, patient is on gabapentin #4 hyperlipidemia-patient is on a statin #5 cerebrovascular disease-patient is currently on 81 mg aspirin daily as well as a statin #6 chronic congestive heart failure with preserved ejection fraction-patient is currently on Entresto and spironolactone Total clinical time spent by myself addressing the patient's medical issues, reviewing all of his data, and collaborating with patient's care team: 35 minutes Charges/Coding Visit Charges Inpatient E&M: 23675 Subs Hosp L2
[2024-08-29 21:44] VITALS: BP 152/82; PULSE 72; RESP 16; TEMP 37; O2SAT 98
[2024-08-29] MEDS: 0.9% Saline Lock 10 ML Syringe IV (22:00)
[2024-08-30 03:30] VITALS: BP 150/83; PULSE 75; RESP 18; TEMP 37.1; O2SAT 97
[2024-08-30 05:14] LABS: Vancomycin, Trough Level 26.3 ug/mL (5.0-15.0)
--- NOTE | 2024-08-30 05:20 | PCM.RX.CS ---
Consult Antibiotic Management Pharmacy has been consulted to manage selected antibiotic: Vancomycin Type of Intervention Type of Consult: Follow-up Suspected Infection Suspected Infection: Osteomyelitis Labs Labs: Sodium 136 mmol/L (133-145) 08/29/24 05:36 Potassium 3.9 mmol/L (3.3-5.1) 08/29/24 05:36 Chloride 104 mmol/L (98-108) 08/29/24 05:36 Carbon Dioxide 20.1 mmol/L (21.0-32.0) L 08/29/24 05:36 Anion Gap 13 (5-15) 08/29/24 05:36 BUN 25 mg/dL (4-19) H 08/29/24 05:36 Creatinine 1.98 mg/dL (0.70-1.20) H 08/29/24 05:36 Est GFR (MDRD) Non-Af 39 (>60) L 08/29/24 05:36 BUN/Creatinine Ratio 12.5 RATIO (10-20) 08/29/24 05:36 Glucose 135 mg/dL (70-99) H 08/29/24 05:36 Vancomycin Trough 26.3 ug/mL (5.0-15.0) H 08/30/24 04:42 Microbiology Microbiology: Microbiology 08/28/24 20:00 Tissue - Toe Gram Stain - Final 08/28/24 20:00 Biopsy - Toe Gram Stain - Final Dosing Weight Weight used for dosin kg Estimated Creatinine Clearance Estimated Creatinine Clearance: 49 Goal Trough Goal Trough: 15-20 mcg/mL Pharmacy Plan for Drug Dosing Pharmacy Plan for Drug Dosing: Vancomycin trough level of 26.3, drawn 11.75hrs post-dose, was above the target range of 15-20. Will suspend current dosing, and will draw a random vanco level in 12 hours to determine further orders. Pharmacy Service will continue to monitor and adjust dosing as required. Follow-Up Labs Follow-Up Labs: Trough: Vancomycin (random) Date/Time Labs Ordered Labs to be done on [date and time ordered]: 08/30/24 @1630 (random)
[2024-08-30 05:29] VITALS: BMI 28.0
[2024-08-30] MEDS: Ampicillin/Sulbactam 3 GM in 0.9% Normal Saline (100mL MB+) 100 ML IV ×3 (05:55→22:37)
[2024-08-30] MEDS: Clindamycin 900 MG/50 ML BAG 75 MG IV (05:55)
[2024-08-30 08:00] VITALS: BP 131/85; PULSE 78; RESP 18; TEMP 37; O2SAT 94
--- NOTE | 2024-08-30 08:23 | EX.PCM.CON.S ---
Assessment & Plan Assessment/Plan (1) Atherosclerosis of lower extremity with gangrene: PLAN: LEAS showed moderate RLE atherosclerosis and given his diabetic status he would benefit from improvement in his inflow if possible to support healing. Due to his renal insufficiency which may be acute recommend proceeding with RLE angiogram with CO2 to reduce contrast burden for further evaluation and possible intervention. The earliest we could add the patient for angiogram at this time is 09/07/24. This was discussed with podiatry who then recommended transfer to the [facility] to see if they would be able to offer possible intervention sooner; patient declined transfer. Angiogram details were discussed with patient and he ultimately was agreeable. OK for discharge and return on an outpatient basis for angiogram. HPI Consult Data Date of Consult: 08/30/24 HPI Narrative HPI Narrative: OLIVER CRAMER, is a 59 M who presented to [facility] ER on 08/28/24 with increased discoloration, redness, swelling, warmth, and pain in his R great toe. XR in the ER was suspicious for osteomyelitis and possible gas gangrene and he had mild leukocytosis with elevated ESR and CRP. He was admitted for IV antibiotics and podiatry evaluation. Dr. Avelar performed partial amputation of the R 1st toe on 08/28/24 and noted poor bleeding during the procedure as well as persistent duskiness to an area on the dorsum of the R foot concerning for PAD. He had vascular studies on 08/29/24 which demonstrated R JOSSE 0.66 with monophasic R PT and biphasic R DP waveforms. He reports no prior history of vascular surgical intervention. He reports a history of prior cardiac cath via L femoral access without intervention. He is diabetic, unsure of last A1c, his glucose was 201 on admission. Labs here has demonstrated renal insufficiency, unclear if this is acute or chronic as last labs here for comparison were 2021 (kidney function was within normal limits at that time). He typically receives his care at the [facility] in [place], that is where his PCP is. He reports a stroke 1-2 years ago which caused R facial droop and he seemingly has some persistent aphasia/word-finding difficulty from that as well. [facility] Medical History Redness of skin Rash Diabetes Easy bruising Stroke/cerebrovascular accident Diabetes mellitus HTN (hypertension) HLD (hyperlipidemia) CHF (congestive heart failure) Left ventricular systolic dysfunction (LVSD) Non-STEMI (non-ST elevated myocardial infarction) Acute CVA (cerebrovascular accident) Congestive heart failure Diabetes mellitus, type 2 Dyslipidemia Depression Anxiety Smoker Hypertension Home Medications ?Medication ?Instructions ?Recorded ?Last Taken ?Type fluticasone propionate 50 2 spray intranasal DAILY allergies 07/24/20 08/28/24 History mcg/actuation nasal spray,suspension gabapentin 300 mg capsule 300 mg PO TID neuropathy 07/24/20 08/28/24 History metformin 500 mg tablet 1,000 mg PO BIDCM diabetes 07/24/20 08/28/24 History trazodone 50 mg tablet 50 mg PO QHS sleep 07/24/20 08/27/24 History carvedilol 6.25 mg tablet 6.25 mg PO BID #60 tabs 07/26/20 08/28/24 Rx nitroglycerin 0.4 mg sublingual 0.4 mg sublingual Q5M PRN 07/26/20 Unknown Rx tablet Cardiac/Chest Pain #30 tabs spironolactone 25 mg tablet 25 mg PO DAILY #30 tabs 07/26/20 08/28/24 Rx aspirin 81 mg chewable tablet 81 mg PO BREAKFAST #30 tabs 12/09/21 08/28/24 Rx atorvastatin 80 mg tablet 80 mg PO QHS #30 tabs 12/09/21 08/27/24 Rx ciclopirox 8 % topical solution 1 applic topical DAILY 08/28/24 08/28/24 History (Ciclodan) empagliflozin 25 mg tablet 25 mg PO DAILY 08/28/24 08/28/24 History (Jardiance) hydrophilic cream 1 applic topical TID PRN dry skin 08/28/24 08/28/24 History omeprazole 20 mg capsule,delayed 20 mg PO DAILY 08/28/24 08/28/24 History release paroxetine HCl 30 mg tablet 30 mg PO DAILY 08/28/24 08/27/24 History sacubitril 97 mg-valsartan 103 mg 1 tab PO BID 08/28/24 08/28/24 History tablet (Entresto) Allergy/AdvReac Type Severity Reaction Status Date / Time No Known Allergies Allergy Verified 08/28/24 15:37 Family History Other Diabetes Heart disease Hypertension Social History Smoking Status: Current every day smoker tobacco type: cigarettes Physical Exam Const alert, oriented x3 and no apparent distress Eyes General Eye: normal appearance of both eyes Neck General: normal visual inspection Resp normal respiratory effort and no retractions Effort and Inspection: able to speak in complete sentences Cardio Rate: regular rate Rhythm: regular rhythm Extremity Extremity Narrative: R foot with some redness and duskiness to the dorsal aspect of the foot; noted surgical wound to the R 1st toe, some bleeding noted on removed dressing; R DP with biphasic doppler signal, R PT with monophasic doppler signal; no excess warmth or coldness to touch in the foot Palpable L femoral pulse, R femoral palpable though somewhat diminished compared to L Psych mental status grossly normal Appearance: grossly normal Lab / Micro Data 08/29/24 05:36 08/29/24 05:36 Labs: Laboratory Results - last 24 hr 08/29/24 11:08: POC Glucose 172 H 08/29/24 16:52: POC Glucose 133 H 08/29/24 22:01: POC Glucose 126 H 08/30/24 04:42: Vancomycin Trough 26.3 H 08/30/24 06:56: POC Glucose 119 H Micro: Microbiology 08/28/24 20:00 Tissue - Toe Gram Stain - Final 08/28/24 20:00 Biopsy - Toe Gram Stain - Final Charges/Coding Visit Charges Inpatient E&M: 73254 Init Hosp L2
--- NOTE | 2024-08-30 08:39 | WOUNDNOTE ---
wound photo: right foot
--- NOTE | 2024-08-30 08:39 | WOUNDNOTE ---
wound photo: right foot
[2024-08-30] MEDS: SACUBITRIL/VALSARTAN 97-103 MG TABLET 1 EACH PO ×2 (08:40→20:12)
[2024-08-30] MEDS: Fluticasone 0.05% 1 SPRAY NASAL.SRY 2 SPRAY NASAL (08:40)
--- NOTE | 2024-08-30 13:19 | PCM.PN.ID ---
Physical Exam Narrative Feeling ok, pain controlled, no fever, no n/v/d. Const alert and no apparent distress General Appearance: cooperative Resp normal air movement and clear to auscultation bilaterally Cardio regular rate and regular rhythm GI soft to palpation, non-tender and non-distended Skin Skin Narrative: foot wrapped ID ID: Route of nutrition/ use of supplements: [] Nutritional Intake: [] IV Site: [] Isaac Catheter: [] Assessment & Plan Assessment/Plan (1) Acute osteomyelitis of toe of right foot: PLAN: Now s/p distal R 1st toe amputation 08/28/[address] Avelar. Will stop clinda, cont vanc/unasyn. Plan on short course po abx at discharge (tentative plan on 1 week po doxy and augmentin) given good source control. Will follow (2) Diabetes mellitus with diabetic polyneuropathy:
[2024-08-30] MEDS: 0.9% Saline Lock 10 ML Syringe IV ×2 (13:56→20:07)
--- NOTE | 2024-08-30 14:22 | CASEMGMT ---
AKILA MAYES made aware that [facility] AKILA MAYES into pt room, pt states he [facility] not to go [facility] [place] as this will put a strain on his family. Pt states he was not made aware of this. Discussed with hospitalist who will speak with pt. AKILA MAYES to follow.
[2024-08-30 14:29] VITALS: BP 127/85; PULSE 83; RESP 18; TEMP 37.3; O2SAT 97
--- NOTE | 2024-08-30 15:50 | WOUNDNOTE ---
Demonstrated the dressing change to the right foot with pt and . states she feels she will be able to change the dressing fine at home. states she plans to change the dressing before she goes to work and then will change it again in the evening. the extra supplies in to room will be sent with patient and a script for dressing supplies was given to the . no further needs or concerns voiced at this time.
[2024-08-30 16:15] VITALS: BP 133/83; PULSE 84; RESP 18; O2SAT 97
--- NOTE | 2024-08-30 16:18 | CASEMGMT ---
Addendum entered by Torey Rm 08/30/24 16:31: Pt and Elsy were made aware cost of walker (without any reduction in payment) is $77.13. Addendum entered by Torey Rm 08/30/24 16:30: While therapy working w/therapy, pt became dizzy. Dr Pickett and RNNaomi, made aware. Green sheet placed on chart w/instructions for FWW to be provided to pt if he discharges home this evening. Original Note: AKILA MAYES NOTE: Per Dr Pickett, pt will be discharging home today. AKILA MAYES to room. Pt and sig other, Elsy, @ bedside and aware of plan for discharge. Questions answered. Script for dressing supplies provided to them. Josey wound nurse has been in to show pt and Elsy how to do wound care/dressing changes. Elsy states she is comfortable with doing this. Discussed DME needs. Questions answered. Pt would like to get a walker but they state cannot afford one at this time. AKILA MAYES spoke w/Jonathan @ [facility]. She states a Reduced Payment application can be filled out and pt can be sent home w/a FWW today. They will make a determination of cost and bill pt later. Jonathan states although a CC is required on form, they will not charge the card unless notifying them first. Elsy and pt made aware, are agreeable to this, and voice appreciation. Script obtained from Dr Pickett for FWW and this was sent to [employer] via [employer], along with completed Reduced Payment application. Pt states he has an appt at the [facility] on Wednesday. Therapy working w/pt at this time and will provide further recommendations, if any, and pt to f/u @ [facility] about same. Pt and Elsy deny having further discharge concerns or needs. Joyce FENTON CM
--- NOTE | 2024-08-30 18:15 | PCM.PROGNOTE ---
Subjective Subjective Patient was seen today for follow up on right foot. He has no new complaints. No complaints of f/c/n/v. Objective Data Objective Data Vital Signs: Vital Signs Temp Pulse Resp BP Pulse Ox O2 Del Method 99.1 F 84 18 133/83 H 97 Room Air 08/30/24 14:29 08/30/24 16:15 08/30/24 16:15 08/30/24 16:15 08/30/24 16:15 08/30/24 16:15 Oxygen Delivery Method Room Air Weight: 102.2 kg Body Mass Index (BMI) 28.0 Intake & Output: Intake and Output for Last 24 Hours 08/28/24 08/29/24 08/30/24 23:59 23:59 23:59 Intake Total 1690 / 1690 1140 / 1140 350 / 350 Output Total 1850 / 1850 750 / 750 Balance 1690 / 1390 -710 / -710 -400 / -400 Lab / Micro Data 08/29/24 05:36 08/29/24 05:36 Labs: Laboratory Results - last 24 hr 08/29/24 22:01: POC Glucose 126 H 08/30/24 04:42: Vancomycin Trough 26.3 H 08/30/24 06:56: POC Glucose 119 H 08/30/24 10:53: POC Glucose 138 H Micro: Microbiology 08/28/24 20:00 Tissue - Toe Gram Stain - Final 08/28/24 20:00 Tissue - Toe Wound Culture - Preliminary 08/28/24 20:00 Biopsy - Toe Gram Stain - Final 08/28/24 20:00 Biopsy - Toe Wound Culture - Preliminary Radiography Diagnostic Testing: Radiology Impression Extremity Arterial Study 08/28/24 17:59 Interpretation Summary Right JOSSE 0.66, moderate arterial insufficiency. Doppler/PVR waveforms of the right leg normal at rest. Left JOSSE 1.22, normal. Doppler/PVR waveforms of the left leg mildly diminished infrapopliteal. TBI normal Ordering Physician: Meng Avelar Referring Physician: [facility] Performed By: Brice Barajas RVT Physical Exam Const alert, oriented x3 and no apparent distress Constitutional Narrative: Right 1st toe s/p partial amputation which is open - there is no active bleeding, tissues noted to be more dusky at surgical site and there is noted to be worsening ischemic changes to dorsal medial foot with increased duskiness, no maloder, no fluctuance, no drainage, no purulence, no visible abscess to right foot or ankle, erythema and edema right foot stable. No pain right foot but patient has significant peripheral neuropathy. No breakdown or evidence of infection or acute ischemia left foot. Assessment & Plan Assessment/Plan (1) Cellulitis of right lower limb: (2) Gangrene, not elsewhere classified: (3) Acute osteomyelitis of toe of right foot: (4) Diabetes mellitus with diabetic polyneuropathy: (5) Other specified peripheral vascular diseases: PLAN: Plan Evaluation performed. Reviewed diagnostic findings. s/p open partial right 1st toe amputation on 08/28/2024. Given worsening ischemic changes to dorsal medial foot and hx of gas - new right foot xrays obtained and reviewed - no gas or acute xray findings noted. Clinically the ischemic changes on patient's right foot is consistent with worsening tissuer perfusion. I discussed case with Vascular Surgery. Vascular Surgery has evaluated the patient and is unable to offer intervention until next . The patient's foot has noted to worsen with increased ischemic changes noted on exam as noted above. Given the progression of symptoms with right lower extremity critical limb ischemia, and the limited availability of Vascular Surgery, I recommended transfer to a facility where earlier intervention may be possible. Given the patient's insurance and [place] history, we discussed transfer to [facility]. I discussed this thoroughly with the patient, including the rationale for transfer and the concern for worsening ischemia. The patient initially declined the transfer, but after further discussion and clarification of the potential risks and benefits, he agreed to the transfer. Discussed case with Dr. Pickett, who is currently coordinating the transfer. Wound care right 1st toe amputation site: normal saline wet to dry gauze dressing changes to site BID. No weightbearing right foot. Keep heels offloaded with pillow(s) while in bed to help prevent breakdown. Patient on antibiotic therapy with Infectious Disease on consult.
--- NOTE | 2024-08-30 18:25 | RAD_ITS ---
EXAM: XR Right Foot Complete, 3 or More Views CLINICAL INDICATION: INFECTION AND PERIPHERAL VASCULAR DISEASE TECHNIQUE: Frontal, lateral and oblique views of the right foot. COMPARISON: No relevant prior studies available. FINDINGS: BONES/JOINTS: Amputation of the 1st proximal phalanx. Surgical margins appear hazy. Osteomyelitis can not be excluded. No acute fracture. No dislocation. SOFT TISSUES: Soft tissue swelling. RAD/Foot min 3 Views IMPRESSION: Amputation of the 1st proximal phalanx. Surgical margins appear hazy. Osteomy elitis can not be excluded. Reading Location: [id number]
--- NOTE | 2024-08-30 18:28 | PCM.PN.HOSP ---
Reason for Visit Chief Complaint: Right toe pain, erythema, swelling Subjective Subjective Patient was seen and examined today, initially he did not agree to be transferred to the [facility], podiatry felt that the patient should be transferred out for vascular reasons, patient did not want me to call his significant other, podiatry came up and talked with the patient at length and I talked with the patient a second time about the need for transfer to another hospital. With the patient's significant other in the room, patient finally agreed to go to another hospital, I will try to attempt to transfer tomorrow to the [facility], if there are no beds available, I am going to try [facility] at the request of the patient's significant other. Objective Data Objective Data Vital Signs: Vital Signs Temp Pulse Resp BP Pulse Ox O2 Del Method 99.1 F 84 18 133/83 H 97 Room Air 08/30/24 14:29 08/30/24 16:15 08/30/24 16:15 08/30/24 16:15 08/30/24 16:15 08/30/24 16:15 Oxygen Delivery Method Room Air Weight: 102.2 kg Body Mass Index (BMI) 28.0 Intake & Output: Intake and Output for Last 24 Hours 08/28/24 08/29/24 08/30/24 23:59 23:59 23:59 Intake Total 1690 / 1690 1140 / 1140 350 / 350 Output Total 1850 / 1850 750 / 750 Balance 1690 / 1390 -710 / -710 -400 / -400 Lab / Micro Data 08/29/24 05:36 08/31/24 10:01 Labs: Laboratory Results - last 24 hr 08/29/24 22:01: POC Glucose 126 H 08/30/24 04:42: Vancomycin Trough 26.3 H 08/30/24 06:56: POC Glucose 119 H 08/30/24 10:53: POC Glucose 138 H Micro: Microbiology 08/28/24 20:00 Tissue - Toe Gram Stain - Final 08/28/24 20:00 Tissue - Toe Wound Culture - Preliminary 08/28/24 20:00 Biopsy - Toe Gram Stain - Final 08/28/24 20:00 Biopsy - Toe Wound Culture - Preliminary Radiography Diagnostic Testing: Radiology Impression Extremity Arterial Study 08/28/24 17:59 Interpretation Summary Right JOSSE 0.66, moderate arterial insufficiency. Doppler/PVR waveforms of the right leg normal at rest. Left JOSSE 1.22, normal. Doppler/PVR waveforms of the left leg mildly diminished infrapopliteal. TBI normal Ordering Physician: Meng Avelar Referring Physician: [facility] Performed By: Brice Barajas RVT Physical Exam Narrative alert, oriented x3 and no apparent distress General Appearance: cooperative, well kempt and well developed Orientation / Consciousness: awake, oriented to person, oriented to place and oriented to time HEENT normocephalic, head/scalp atraumatic and moist oral mucous membranes Eyes PERRL, EOMs intact bilaterally and conjunctivae normal Neck supple, no JVD, thyroid normal and no carotid bruits General: trachea midline Resp normal respiratory effort, no retractions, no use of accessory muscles and clear to auscultation bilaterally Auscultation: Negative for rales, rhonchi or wheezes Cardio regular rate, regular rhythm, S1 normal heart sound, S2 normal heart sound, no murmurs, no rub and no gallops GI normal to inspection, nondistended, normoactive bowel sounds, soft to palpation, non-tender and non-distended Extremity Extremity Narrative: Right foot is wrapped with surgical dressing, this was not removed for examination of the wound Neuro oriented x3, CN's II-XII intact bilaterally and no focal motor deficits Sensorium / Orientation: awake and alert Speech: speech normal Psych affect normal Assessment & Plan Assessment/Plan (1) Atherosclerosis of lower extremity with gangrene: (2) Acute osteomyelitis of toe of right foot: PLAN: Plan 1. Osteomyelitis of the right great toe-status post partial amputation of the right great toe postop day #2-podiatry is participating in his care, infectious diseases saw the patient today and is directing antibiotic coverage. Patient may need to be transferred to an outside hospital for vascular care and an angiogram cannot be done urgently. [facility] #2 type 2 diabetes-blood sugars will be monitored, sliding scale insulin will be administered as needed #3 diabetic neuropathy of the feet-complicates care, management, recovery, and prognosis, patient is on gabapentin #4 hyperlipidemia-patient is on a statin #5 cerebrovascular disease-patient is currently on 81 mg aspirin daily as well as a statin #6 chronic congestive heart failure with preserved ejection fraction-patient is currently on Entresto and spironolactone Total clinical time spent by myself addressing the patient's medical issues, reviewing all of his data, and collaborating with patient's care team: 35 minutes Charges/Coding Visit Charges Inpatient E&M: 75150 Subs Hosp L2
[2024-08-30 18:59] LABS: Vancomycin, Random Level 18.7 ug/mL (0.0-15.0)
--- NOTE | 2024-08-30 19:21 | PCM.RX.CS ---
Consult Antibiotic Management Pharmacy has been consulted to manage selected antibiotic: Vancomycin Type of Intervention Type of Consult: Follow-up Labs Labs: Sodium 136 mmol/L (133-145) 08/29/24 05:36 Potassium 3.9 mmol/L (3.3-5.1) 08/29/24 05:36 Chloride 104 mmol/L (98-108) 08/29/24 05:36 Carbon Dioxide 20.1 mmol/L (21.0-32.0) L 08/29/24 05:36 Anion Gap 13 (5-15) 08/29/24 05:36 BUN 25 mg/dL (4-19) H 08/29/24 05:36 Creatinine 1.98 mg/dL (0.70-1.20) H 08/29/24 05:36 Est GFR (MDRD) Non-Af 39 (>60) L 08/29/24 05:36 BUN/Creatinine Ratio 12.5 RATIO (10-20) 08/29/24 05:36 Glucose 135 mg/dL (70-99) H 08/29/24 05:36 Vancomycin Trough 26.3 ug/mL (5.0-15.0) H 08/30/24 04:42 Random Vancomycin 18.7 ug/mL (0.0-15.0) H 08/30/24 17:31 Microbiology Microbiology: Microbiology 08/28/24 20:00 Tissue - Toe Gram Stain - Final 08/28/24 20:00 Tissue - Toe Wound Culture - Preliminary 08/28/24 20:00 Biopsy - Toe Gram Stain - Final 08/28/24 20:00 Biopsy - Toe Wound Culture - Preliminary Goal Trough Goal Trough: 15-20 mcg/mL Pharmacy Plan for Drug Dosing Pharmacy Plan for Drug Dosing: VANCOMYCIN LEVEL RECEIVED Current Vancomycin Dose: ON HOLD- was previously 1g Q24h Number of Doses Received: n/a Vancomycin Level: 18.7 Hours Since Last Dose: 24.5hr Renal Function: 1.98 Renal Function Trend: stable Lab/Micro: cultures pending Vancomycin Plan/Comments: The patient had a trough drawn which resulted in a value of 18.7 (goal 15-20). Since vancomycin is now within the therapeutic window, will resume vancomycin. Will start vancomycin 1000mg IV Q24hr to start 08/30/24 @2000 Pending Level: 09/01/24 @1930, prior to 3rd dose of new regimen Pharmacy Service will continue to monitor and adjust dosing as required.
[2024-08-30] MEDS: Vancomycin HCl 1,000 MG in 0.9% Normal Saline (250mL Bag) 250 ML 250 MG IV (20:07)
[2024-08-30 20:15] VITALS: BP 170/107; PULSE 84; RESP 16; TEMP 36.8; O2SAT 96
[2024-08-31] VITALS (10 sets, daily range): BP systolic 166–177; BP diastolic 93–108; PULSE 78–88; RESP 16–18; TEMP 36.1–37.2; O2SAT 95–98; BMI 28.0; BMI 28.1
[2024-08-31] MEDS: Ampicillin/Sulbactam 3 GM in 0.9% Normal Saline (100mL MB+) 100 ML IV ×3 (06:09→21:23)
[2024-08-31] MEDS: Fluticasone 0.05% 1 SPRAY NASAL.SRY 2 SPRAY NASAL (07:54)
[2024-08-31] MEDS: SACUBITRIL/VALSARTAN 97-103 MG TABLET 1 EACH PO ×2 (07:55→22:09)
--- NOTE | 2024-08-31 09:45 | PN.SURG_ITS ---
Subjective Subjective I saw patient this morning resting in bed. He reports stable pain to the R foot. Podiatry saw him yesterday evening and noted worsened appearance of the R great toe wound bed and appearance of worsened cyanotic discoloration around the wound and onto the dorsum of the foot. Objective Data Objective Data Vital Signs: Vital Signs Temp Pulse Resp BP Pulse Ox O2 Del Method 97.6 F L 78 17 174/96 H 97 Room Air 08/31/24 07:50 08/31/24 07:50 08/31/24 07:50 08/31/24 07:50 08/31/24 07:50 08/31/24 08:03 Oxygen Delivery Method Room Air Weight: 225 lb 1.471 oz Body Mass Index (BMI) 28.0 Intake & Output: Intake and Output for Last 24 Hours 08/29/24 08/30/24 08/31/24 23:59 23:59 23:59 Intake Total 1140 / 1140 720 / 720 100 / 100 Output Total 1850 / 1850 1150 / 1150 700 / 700 Balance -710 / -710 -430 / -430 -600 / -600 Lab / Micro Data 08/29/24 05:36 08/29/24 05:36 Labs: Laboratory Results - last 24 hr 08/30/24 10:53: POC Glucose 138 H 08/30/24 17:31: Random Vancomycin 18.7 H 08/30/24 20:09: POC Glucose 150 H 08/31/24 06:07: POC Glucose 85 Micro: Microbiology 08/28/24 20:00 Biopsy - Toe Gram Stain - Final 08/28/24 20:00 Biopsy - Toe Wound Culture - Preliminary Coag Negative Staph Coag Negative Staph#2 08/28/24 20:00 Tissue - Toe Gram Stain - Final 08/28/24 20:00 Tissue - Toe Wound Culture - Preliminary Coag Negative Staph 08/28/24 16:17 Blood Culture (Wb) - Right Forearm Blood Culture - Preliminary No growth in 48 hours. 08/28/24 16:05 Blood Culture (Wb) - Left Hand Blood Culture - Preliminary No growth in 48 hours. Radiography Diagnostic Testing: Radiology Impression Extremity Arterial Study 08/28/24 17:59 Interpretation Summary Right JOSSE 0.66, moderate arterial insufficiency. Doppler/PVR waveforms of the right leg normal at rest. Left JOSSE 1.22, normal. Doppler/PVR waveforms of the left leg mildly diminished infrapopliteal. TBI normal Ordering Physician: Meng Avelar Referring Physician: [facility] Performed By: Brice Barajas RVT Foot X-Ray 08/30/24 18:25 IMPRESSION: Amputation of the 1st proximal phalanx. Surgical margins appear hazy. Osteomyelitis can not be excluded. Reading Location: [facility] Physical Exam Const alert, oriented x3 and no apparent distress General Appearance: cooperative HEENT normocephalic, hearing grossly normal bilaterally, external ears normal and external nose normal Eyes EOMs intact bilaterally General Eye: normal appearance of both eyes Neck General: normal visual inspection and trachea midline Resp normal respiratory effort and no retractions Effort and Inspection: able to speak in complete sentences and symmetric chest movement; Negative for labored, grunting or stridor Cardio regular rate Rate: regular rate Rhythm: regular rhythm Extremity Extremity Narrative: R foot with wound care dressings in place, had just been placed and were C/D/I; disturbed dressings minimally for pulse exam, did not remove dressings over the wound itself. R PT signal monophasic, stable. Palpable L femoral pulse, R femoral palpable though somewhat diminished compared to L Psych mental status grossly normal Appearance: grossly normal Assessment & Plan Assessment/Plan (1) Atherosclerosis of lower extremity with gangrene: PLAN: Due to concern for progressive ischemic tissue injury to the foot with acutely worsened appearance noted late yesterday evening and [facility], plan is now for urgent RLE angiogram possible intervention in the clinical lab technologist today. Patient is agreeable to proceed. Hospitalist had discussed with his significant other that this would be a possibility and she was also agreeable; attempted to call to inform of now definitive plan/procedure time but no answer, LVM. NPO now. Continue ASA. Will obtain updated Creatinine and GFR; plan to utilize CO2 as needed in angiogram to reduce contrast burden. Charges/Coding Visit Charges Inpatient E&M: 74998 Subs Hosp L2
--- NOTE | 2024-08-31 11:00 | NURSING ---
Pt sent to concrete laborer
[2024-08-31 11:20] LABS: Estimated Creatinine Clearance 75.38 ml/min (50-250)
[2024-08-31 14:57] LABS: ACT Activated Clotting Time 262 sec (74-137)
--- NOTE | 2024-08-31 15:29 | PCM.PROGNOTE ---
Subjective Subjective Patient was seen today for follow up on right foot. He just had vascular intervention to right lower extremity by vascular surgery. He relates he is feeling good, no new complaints at this time. Objective Data Objective Data Vital Signs: Vital Signs Temp Pulse Resp BP Pulse Ox O2 Del Method 97.6 F L 83 18 166/93 H 97 Room Air 08/31/24 07:50 08/31/24 10:03 08/31/24 10:03 08/31/24 10:03 08/31/24 10:03 08/31/24 10:03 Oxygen Delivery Method Room Air Weight: 102.1 kg Body Mass Index (BMI) 28.1 Intake & Output: Intake and Output for Last 24 Hours 08/29/24 08/30/24 08/31/24 23:59 23:59 23:59 Intake Total 1140 / 1140 720 / 720 100 / 100 Output Total 1850 / 1850 1150 / 1150 700 / 700 Balance -710 / -710 -430 / -430 -600 / -600 Lab / Micro Data 08/29/24 05:36 08/31/24 10:01 Labs: Laboratory Results - last 24 hr 08/30/24 17:31: Random Vancomycin 18.7 H 08/30/24 20:09: POC Glucose 150 H 08/31/24 06:07: POC Glucose 85 08/31/24 10:01: Creatinine 1.40 H, Estim Creat Clear Calc 75.38, Est GFR (MDRD) Non-Af 59 L 08/31/24 10:55: POC Glucose 147 H 08/31/24 12:39: Activated Clotting Time 262 H Micro: Microbiology 08/28/24 20:00 Biopsy - Toe Gram Stain - Final 08/28/24 20:00 Biopsy - Toe Wound Culture - Preliminary Coag Negative Staph Coag Negative Staph#2 08/28/24 20:00 Tissue - Toe Gram Stain - Final 08/28/24 20:00 Tissue - Toe Wound Culture - Preliminary Coag Negative Staph 08/28/24 16:17 Blood Culture (Wb) - Right Forearm Blood Culture - Preliminary No growth in 48 hours. 08/28/24 16:05 Blood Culture (Wb) - Left Hand Blood Culture - Preliminary No growth in 48 hours. Radiography Diagnostic Testing: Radiology Impression Extremity Arterial Study 08/28/24 17:59 Interpretation Summary Right JOSSE 0.66, moderate arterial insufficiency. Doppler/PVR waveforms of the right leg normal at rest. Left JOSSE 1.22, normal. Doppler/PVR waveforms of the left leg mildly diminished infrapopliteal. TBI normal Ordering Physician: Meng Avelar Referring Physician: [facility] Performed By: Brice Barajas RVT Foot X-Ray 08/30/24 18:25 IMPRESSION: Amputation of the 1st proximal phalanx. Surgical margins appear hazy. Osteomyelitis can not be excluded. Reading Location: [facility] Physical Exam Const alert, oriented x3 and no apparent distress Constitutional Narrative: Dressing right foot is clean, dry and intact. Assessment & Plan Assessment/Plan (1) Cellulitis of right lower limb: (2) Gangrene, not elsewhere classified: (3) Acute osteomyelitis of toe of right foot: (4) Diabetes mellitus with diabetic polyneuropathy: (5) Other specified peripheral vascular diseases: PLAN: Plan Patient was seen in the vascular recovery area. Reviewed diagnostic findings. s/p open partial right 1st toe amputation on 08/28/2024. Spoke with wound nurse and foot stable today. It was noted DC did not have available bed. Patient has been taken urgently for right lower extremity angiogram and revasc by vascular surgery today. Discussed with patient at this point we will let foot demarcate and we discussed further debridement and possible closure right foot pending response to today's vascular intervention. We will continue to monitor at this time. Wound care right 1st toe amputation site: normal saline wet to dry gauze dressing changes to site BID. No weightbearing right foot. Keep heels offloaded with pillow(s) while in bed to help prevent breakdown. Patient on antibiotic therapy with Infectious Disease on consult.
--- NOTE | 2024-08-31 15:38 | NURSING ---
Nursing supervisor blood donor recruiters Jessica aware of PCI monitoring orders with regards to [facility] floor.
--- NOTE | 2024-08-31 16:47 | NURSING ---
Unable to look on foot d/t dressing, from dressing up skin looks normal and skin is warm to the touch.
--- NOTE | 2024-08-31 18:07 | PCM.OPRPT ---
Operative Report (Standard) Operative Information Date of Procedure: 08/31/24 Pre-Operative Diagnosis: Atherosclerosis with diabetic foot infection of the right lower extremity Post-Operative Diagnosis: Same Surgery/Procedure Performed: Aortogram, right lower extremity angiogram Intravascular ultrasound right anterior tibial artery, tibioperoneal trunk artery, popliteal artery Angioplasty right anterior tibial artery Infusion of 3 mg of tPA via sheath in the popliteal artery dough raiser: No Type of Anesthesia: Local and Sedation,Conscious RN Documented Start/Stop Times: Operation Date: 08/28/24 18:45 Case Time Anesthesia Start 08/28/24 19:19 Into Room 08/28/24 19:19 Procedure Start 08/28/24 19:31 Procedure End 08/28/24 19:56 Anesthesia End 08/28/24 20:04 Out of Room 08/28/24 20:04 Into Recovery 08/28/24 20:06 Out of Recovery 08/28/24 20:20 Procedure Start Time: 12:45 Procedure Stop Time: 14:00 Select all DRAINS/GRAFTS/IMPLANTS that apply: None Estimated Blood Loss: 2 Specimen collected: No Description of surgery: HPI: Patient is a 59-year-old male who presented with acute onset of the right great toe infection and diabetic status. His noninvasive vascular studies revealed moderate arterial insufficiency primarily appearing to be infrapopliteal. He was initially taken for emergent drainage of the infection with the wound left open; this wound bed was filled very poorly perfused at the time of surgery and postoperatively it appeared very dusky. The patient also has mottling of the forefoot further suggesting poor perfusion. He is taken now for angiogram with possible intervention. Description of procedure: Upon obtaining informed consent and verification correct patient procedure site the patient was taken to the [facility] [employer] where he was positioned prepped and draped in usual sterile fashion. Time was performed sedation administered Versed and fentanyl. Skin overlying the left common femoral artery was anesthetized 1% lidocaine the vessel accessed under ultrasound guidance with micropuncture needle wire. This then exchanged for micropuncture sheath through which injection iliofemoral angiogram was performed revealing satisfactory position with no extravasation of dissection. Through the micropuncture sheath a [employer] wire was advanced into the abdominal aorta and the micropuncture sheath exchanged for a short 5 Malaysian sheath. Through the 5 Malaysian sheath an Omni Flush catheter was advanced into the abdominal aorta and the digital traction aortogram pelvic angiograms performed. This revealed normal caliber abdominal aorta and bilateral common and external iliac veins with no significant atherosclerosis or stenosis. Utilizing the Omni Flush catheter and Bentson wire we navigate into the contralateral iliac system advancing her catheter into the distal external iliac artery. From this position sequential subtraction angiography images of the lower extremity were performed which revealed widely patent common femoral, profundofemoral, superficial femoral arteries with no significant atherosclerosis or stenosis. The popliteal artery was widely patent with moderate diffuse atherosclerosis but no significant stenosis. The tibioperoneal trunk was patent in both the posterior tibial and peroneal arteries were occluded after a short taper in caliber within the first several centimeters of their origins. The anterior tibial artery was widely patent large caliber vessel proximally with 1 area area of severe stenosis approximately 5 cm beyond the origin of greater than 75%. At a further 5 cm distally there was total occlusion with several segments alternating total occlusion and patent segment with the patent segments filling via collaterals. There was scant contrast present within the dorsalis pedis artery within the foot with otherwise no further pedal vessels visualized. The hope was that there would be an opportunity to improve anterior tibial artery with endovascular intervention so the patient was in heparinized allowed to circulate for 3 minutes. Through the Omni Flush catheter Bentson wire was advanced into the popliteal artery and the catheter and short 5 Malaysian sheath exchanged for a 5 Malaysian 70 Ansell sheath advanced into the distal popliteal artery. From this position utilizing a quick cross catheter and a command 18 wire we navigated into the right anterior tibial artery and engaged with areas of occlusion. We able to successfully cross the entirety of the vessel into the dorsalis pedis and exchanged our 035 quick cross for an hour and a quick cross. This was then advanced into the dorsalis pedis and the wire withdrawn. Hand-injection subtraction angiography revealed satisfactory position within true lumen no extravasation or dissection. There is also revealed dorsalis pedis to fill the pedal arch and multiple digit vessels. A command 14 wire was then advanced through the catheter and the catheter withdrawn. An intravascular ultrasound probe was advanced over the wire into the dorsalis pedis and recorded pullback performed of the dorsalis pedis, anterior tibial, popliteal artery. This confirmed presence within the true lumen and revealed mostly soft appearing plaque with only 1 single segment consistent with thrombus. Given the majority of the lesion was plaque without thrombus it was felt that simple angioplasty would be safe and effective. We also plan to infuse tPA via the sheath after the intervention to potentially augment thrombus resolution. We obtained reference vessel sizing from the ultrasound imaging and a 2.5x 150 Tootie angioplasty balloon was advanced to the proximal segment of the dorsalis pedis artery. This was then inflated for multiple inflations across the distal two thirds of the anterior tibial artery. The balloon was then deflated and withdrawn and a second tootie balloon 3 x 150 was advanced over the wire position in the proximal third of the anterior tibial artery. This was then inflated to nominal for 3 minutes and then deflated withdrawn. Completion angiography via the sheath revealed satisfactory response of the anterior tibial artery with no extravasation or dissection and no residual stenosis. There is brisk contrast transit into the dorsalis pedis and pedal arch with filling of the pedal and digit vessels. There is no evidence of any embolic event. Next 3 mg of tPA were infused via the sheath into the the popliteal artery to allow preferential perfusion into all of the tibial vessels. Next the Bentson wire was advanced through the 5 Malaysian sheath was exchanged for a short 5 Malaysian sheath. A minx closure device was then deployed followed by 15 minutes of manual pressure with satisfactory hemostasis observed. The patient was then taken recovery with plan return to the [facility] unit. Surgical Findings: see above Complications Complications: No
[2024-08-31] MEDS: 0.9% Saline Lock 10 ML Syringe IV ×3 (18:35→22:18)
--- NOTE | 2024-08-31 18:35 | NURSING ---
dressing to RLE, skin color on rest of leg wnl for patient
--- NOTE | 2024-08-31 19:03 | PCM.PN.HOSP ---
Reason for Visit Chief Complaint: Right toe pain, erythema, swelling Subjective Subjective Patient underwent a vascular procedure today with intervention, I talked with vascular surgery and vascular surgery was going to call podiatry to let them know the procedure was done. I talked to the patient's significant other today. Objective Data Objective Data Vital Signs: Vital Signs Temp Pulse Resp BP Pulse Ox O2 Del Method 97.8 F 88 17 166/99 H 98 Room Air 08/31/24 18:33 08/31/24 18:33 08/31/24 18:33 08/31/24 18:33 08/31/24 18:33 08/31/24 18:33 Oxygen Delivery Method Room Air Weight: 102.1 kg Body Mass Index (BMI) 28.1 Intake & Output: Intake and Output for Last 24 Hours 08/29/24 08/30/24 08/31/24 23:59 23:59 23:59 Intake Total 1140 / 1140 720 / 720 200 / 200 Output Total 1850 / 1850 1150 / 1150 700 / 700 Balance -710 / -710 -430 / -430 -500 / -500 Lab / Micro Data 08/29/24 05:36 08/31/24 10:01 Labs: Laboratory Results - last 24 hr 08/30/24 20:09: POC Glucose 150 H 08/31/24 06:07: POC Glucose 85 08/31/24 10:01: Creatinine 1.40 H, Estim Creat Clear Calc 75.38, Est GFR (MDRD) Non-Af 59 L 08/31/24 10:55: POC Glucose 147 H 08/31/24 12:39: Activated Clotting Time 262 H 08/31/24 16:29: POC Glucose 113 H Micro: Microbiology 08/28/24 20:00 Biopsy - Toe Gram Stain - Final 08/28/24 20:00 Biopsy - Toe Wound Culture - Preliminary Coag Negative Staph Coag Negative Staph#2 08/28/24 20:00 Tissue - Toe Gram Stain - Final 08/28/24 20:00 Tissue - Toe Wound Culture - Preliminary Coag Negative Staph 08/28/24 16:17 Blood Culture (Wb) - Right Forearm Blood Culture - Preliminary No growth in 48 hours. 08/28/24 16:05 Blood Culture (Wb) - Left Hand Blood Culture - Preliminary No growth in 48 hours. Radiography Diagnostic Testing: Radiology Impression Foot X-Ray 08/30/24 18:25 IMPRESSION: Amputation of the 1st proximal phalanx. Surgical margins appear hazy. Osteomyelitis can not be excluded. Reading Location: [facility] Physical Exam Narrative alert, oriented x3 and no apparent distress General Appearance: cooperative, well kempt and well developed Orientation / Consciousness: awake, oriented to person, oriented to place and oriented to time HEENT normocephalic, head/scalp atraumatic and moist oral mucous membranes Eyes PERRL, EOMs intact bilaterally and conjunctivae normal Neck supple, no JVD, thyroid normal and no carotid bruits General: trachea midline Resp normal respiratory effort, no retractions, no use of accessory muscles and clear to auscultation bilaterally Auscultation: Negative for rales, rhonchi or wheezes Cardio regular rate, regular rhythm, S1 normal heart sound, S2 normal heart sound, no murmurs, no rub and no gallops GI normal to inspection, nondistended, normoactive bowel sounds, soft to palpation, non-tender and non-distended Extremity Extremity Narrative: Right foot is wrapped with surgical dressing, this was not removed for examination of the wound Neuro oriented x3, CN's II-XII intact bilaterally and no focal motor deficits Sensorium / Orientation: awake and alert Speech: speech normal Psych affect normal Assessment & Plan Assessment/Plan (1) Atherosclerosis of lower extremity with gangrene: (2) Acute osteomyelitis of toe of right foot: PLAN: Plan 1. Osteomyelitis of the right great toe-status post partial amputation of the right great toe postop day #3-podiatry is participating in his care, infectious diseases saw the patient today and is directing antibiotic coverage. Patient may need to be transferred to an outside hospital for vascular care and an angiogram cannot be done urgently. [facility] #2 type 2 diabetes-blood sugars will be monitored, sliding scale insulin will be administered as needed #3 diabetic neuropathy of the feet-complicates care, management, recovery, and prognosis, patient is on gabapentin #4 hyperlipidemia-patient is on a statin #5 cerebrovascular disease-patient is currently on 81 mg aspirin daily as well as a statin #6 chronic congestive heart failure with preserved ejection fraction-patient is currently on Entresto and spironolactone #7 peripheral vascular disease-again patient underwent intervention by vascular surgery today Total clinical time spent by myself addressing the patient's medical issues, reviewing all of his data, and collaborating with patient's care team: 35 minutes Charges/Coding Visit Charges Inpatient E&M: 62612 Subs Hosp L2
[2024-08-31] MEDS: Vancomycin HCl 1,000 MG in 0.9% Normal Saline (250mL Bag) 250 ML 250 MG IV (19:54)
[2024-08-31] MEDS: 0.9% Normal Saline (250mL Bag) 250 ML 15 ML IV (21:23)
[2024-09-01 02:11] VITALS: BP 158/100; PULSE 78; RESP 16; TEMP 37; O2SAT 95
[2024-09-01 05:38] VITALS: BP 165/92; PULSE 79; RESP 17; TEMP 36.9; O2SAT 96
[2024-09-01 05:44] VITALS: BMI 27.3
[2024-09-01] MEDS: Ampicillin/Sulbactam 3 GM in 0.9% Normal Saline (100mL MB+) 100 ML IV ×2 (05:51→14:23)
--- NOTE | 2024-09-01 06:57 | NURSING ---
Pt had an output of 100ml throughout the night, he refused to be bladder scanned.
[2024-09-01 07:58] VITALS: BP 170/94; PULSE 83; RESP 18; TEMP 37.2; O2SAT 97
[2024-09-01] MEDS: SACUBITRIL/VALSARTAN 97-103 MG TABLET 1 EACH PO (08:12)
[2024-09-01] MEDS: Fluticasone 0.05% 1 SPRAY NASAL.SRY 2 SPRAY NASAL (08:12)
--- NOTE | 2024-09-01 08:12 | PCM.PN.SRG ---
Subjective Subjective I saw Mr. Valladares this morning resting comfortably in bed. He has no particular complaints. He relates his R foot feels about the same. He is not having any pain at the L groin access site. I saw him along with wound care nurse Josey; wound and periwound looks overall stable in appearance. Objective Data Objective Data Vital Signs: Vital Signs Temp Pulse Resp BP Pulse Ox O2 Del Method 98.9 F 83 18 170/94 H 97 Room Air 09/01/24 07:58 09/01/24 07:58 09/01/24 07:58 09/01/24 07:58 09/01/24 07:58 09/01/24 07:58 Oxygen Delivery Method Room Air Weight: 220 lb 0.341 oz Body Mass Index (BMI) 27.3 Intake & Output: Intake and Output for Last 24 Hours 08/30/24 08/31/24 09/01/24 23:59 23:59 23:59 Intake Total 720 / 720 570.75 / 770.75 300 / 300 Output Total 1150 / 1150 700 / 700 100 / 100 Balance -430 / -430 -129.25 / 70.75 200 / 200 Lab / Micro Data 08/29/24 05:36 08/31/24 10:01 Labs: Laboratory Results - last 24 hr 08/31/24 10:01: Creatinine 1.40 H, Estim Creat Clear Calc 75.38, Est GFR (MDRD) Non-Af 59 L 08/31/24 10:55: POC Glucose 147 H 08/31/24 12:39: Activated Clotting Time 262 H 08/31/24 16:29: POC Glucose 113 H 08/31/24 21:56: POC Glucose 130 H 09/01/24 06:54: POC Glucose 104 Micro: Microbiology 08/28/24 20:00 Biopsy - Toe Gram Stain - Final 08/28/24 20:00 Biopsy - Toe Wound Culture - Preliminary Coag Negative Staph Coag Negative Staph#2 08/28/24 20:00 Tissue - Toe Gram Stain - Final 08/28/24 20:00 Tissue - Toe Wound Culture - Preliminary Coag Negative Staph 08/28/24 16:17 Blood Culture (Wb) - Right Forearm Blood Culture - Preliminary No growth in 48 hours. 08/28/24 16:05 Blood Culture (Wb) - Left Hand Blood Culture - Preliminary No growth in 48 hours. Physical Exam Const alert, oriented x3 and no apparent distress General Appearance: cooperative HEENT normocephalic, hearing grossly normal bilaterally, external ears normal and external nose normal Eyes EOMs intact bilaterally General Eye: normal appearance of both eyes Neck General: normal visual inspection and trachea midline Resp normal respiratory effort and no retractions Effort and Inspection: able to speak in complete sentences and symmetric chest movement; Negative for labored, grunting or stridor Cardio regular rate Rate: regular rate Rhythm: regular rhythm Extremity Extremity Narrative: R 1st toe wound with stable appearance, mild blood oozing noted; still with duskiness around the edges but no worsening. R PT strong monophasic signal, R DP strong multiphasic signal Palpable L femoral pulse and pedal pulse. L groin puncture site with dressing C/D/I, soft to palpation without ecchymosis/hematoma. Psych mental status grossly normal Appearance: grossly normal Assessment & Plan Assessment/Plan (1) Atherosclerosis of lower extremity with gangrene: PLAN: He is s/p angioplasty right anterior tibial artery and infusion of 3 mg of tPA to tibial vessels via sheath in the popliteal artery 08/31/24. L femoral access site without hematoma. R DP signal improved; R digit wound appears stable. OK to remove pressure dressing at L groin access site tomorrow morning, then can leave open to air. Plavix initiated following intervention; plan is for DAPT with ASA 81mg daily and Plavix 75mg daily at discharge. He should not lift more than 20 pounds for 3 weeks; otherwise activity as tolerated and as per podiatry recommendations. Will plan for follow-up as an outpatient in 2-4 weeks; from vascular surgical perspective, OK for discharge planning per primary team. Charges/Coding Visit Charges Inpatient E&M: 50667 Subs Hosp L1
--- NOTE | 2024-09-01 08:13 | WOUNDNOTE ---
wound photo: right foot
--- NOTE | 2024-09-01 08:13 | WOUNDNOTE ---
wound photo: right foot
[2024-09-01 08:24] VITALS: TEMP 37.2
--- NOTE | 2024-09-01 10:56 | WOUNDNOTE ---
Called and talked with significant other Elsy about new dressing change orders. the only difference is Dr Avelar would like betadine solution used instead of NS and dressing can be daily instead of twice a day. Elsy feels comfortable changing the dressing and denies further questions. appreciative of call.
--- NOTE | 2024-09-01 11:33 | CASEMGMT ---
Addendum entered by April Ramirez 09/01/24 14:53: Pt with dc order in. Nurse to obtain surgical shoe and is aware pt declined walker. Addendum entered by April Ramirez 09/01/24 13:59: Spoke with Partha from [facility] who states that FWW was delivered and pt then called to request to return it. Partha discussed reduced application with pt and reports pt still declines. Pt reports he is getting a walking boot. Pt relayed same to AKILA MAYES. Original Note: Discussed homegoing wound care with wound nurse. She plans to call pt sig other to discuss the changes in what was already taught to her. AKILA MAYES into pt room, pt lying in bed in no distress. Discussed wound care with pt. Pt declines HHC at this time. He states this is not something he is interested in. Pt feels comfortable with sig other performing wound care. Pt is still interested in the walker from [facility]. Pt denies any further homegoing needs. Referral sent to [facility] for FWW.
[2024-09-01 12:24] VITALS: BP 169/92; PULSE 89; RESP 18; TEMP 36.7; O2SAT 97
--- NOTE | 2024-09-01 13:14 | PCM.PROGNOTE ---
Subjective Subjective Patient was seen today for follow up on right foot. He is resting in chair, no new complaints. No complaints of f/c/n/v. Objective Data Objective Data Vital Signs: Vital Signs Temp Pulse Resp BP Pulse Ox O2 Del Method 98.0 F 89 18 169/92 H 97 Room Air 09/01/24 12:24 09/01/24 12:24 09/01/24 12:24 09/01/24 12:24 09/01/24 12:24 09/01/24 12:24 Oxygen Delivery Method Room Air Weight: 99.8 kg Body Mass Index (BMI) 27.3 Intake & Output: Intake and Output for Last 24 Hours 08/30/24 08/31/24 09/01/24 23:59 23:59 23:59 Intake Total 720 / 720 570.75 / 770.75 500 / 500 Output Total 1150 / 1150 700 / 700 100 / 100 Balance -430 / -430 -129.25 / 70.75 400 / 400 Lab / Micro Data 08/29/24 05:36 08/31/24 10:01 Labs: Laboratory Results - last 24 hr 08/31/24 12:39: Activated Clotting Time 262 H 08/31/24 16:29: POC Glucose 113 H 08/31/24 21:56: POC Glucose 130 H 09/01/24 06:54: POC Glucose 104 09/01/24 11:18: POC Glucose 114 H Micro: Microbiology 08/28/24 20:00 Biopsy - Toe Gram Stain - Final 08/28/24 20:00 Biopsy - Toe Wound Culture - Final Staphylococcus lugdunensis Staphylococcus capitis 08/28/24 20:00 Biopsy - Toe Anaerobic Culture - Final No anaerobic bacteria isolated. 08/28/24 20:00 Tissue - Toe Gram Stain - Final 08/28/24 20:00 Tissue - Toe Wound Culture - Final Staphylococcus capitis 08/28/24 16:17 Blood Culture (Wb) - Right Forearm Blood Culture - Preliminary No growth in 48 hours. 08/28/24 16:05 Blood Culture (Wb) - Left Hand Blood Culture - Preliminary No growth in 48 hours. Physical Exam Const alert, oriented x3 and no apparent distress Constitutional Narrative: Dressing right foot is clean, dry and intact. Reviewed 09/01/24 right foot/wound photo - stable dorsal medial foot, partial 1st toe amputation site with some dry nonviable tissue but appears overall to have improved perfusion. Assessment & Plan Assessment/Plan (1) Cellulitis of right lower limb: (2) Gangrene, not elsewhere classified: (3) Acute osteomyelitis of toe of right foot: (4) Diabetes mellitus with diabetic polyneuropathy: (5) Other specified peripheral vascular diseases: PLAN: Plan Reviewed diagnostic findings. s/p open partial right 1st toe amputation on 08/28/2024. Spoke with wound nurse and foot remains stable today. Patient has been taken urgently for right lower extremity angiogram and revasc by vascular surgery on 08/31/2024 - at this point will monitor and let demarcate, we again discussed further debridement and possible closure right foot pending response to vascular intervention. We will continue to monitor at this time. Wound care right 1st toe amputation site and dorsal medial foot: Betadine solution and dry gauze dressing changes to site daily. Advised patient to rest foot and stay off of right foot. Surgical shoe was ordered for patient to keep foot protected. Patient on antibiotic therapy with Infectious Disease on consult. Patient to follow up with me next week in office, sooner if needed.
--- NOTE | 2024-09-01 13:37 | CASEMGMT ---
Update given to Gaurav LARRY CM at this time.
--- NOTE | 2024-09-01 13:56 | DCINST_ITS ---
Discharge Instructions DC O2, CPAP, BIPAP needs Home O2 Discharge instructions: No Dressing / Incision Discharge Activity: Return to Normal Activity Weight Bearing Status: - (Use walking boot on right foot to ambulate) Follow Up Care Test Results: Test results from this visit will be discussed in further detail at your follow- up appointment, if applicable. Discharge Plan Admission Admit Date/Time: 08/28/24 18:50 Primary Reason for Your Visit: Osteomyelitis right great toe Attending Provider: Meng Avelar Primary Care Provider: [place], [place] Consulting Providers: Meng Avelar; Cosme Reina; Duglas Harrell; Wesley Pickett Instructions Additional Instructions / Restrictions: Vascular Surgery instructions: - Remove L groin dressing morning of 09/02/24 then OK to leave open to air. OK to showers, do not submerge such as to take a bath/swim for 3 weeks. - Do not lift more than 20 pounds for 3 weeks; otherwise you may proceed with activity as tolerated and allowed by podiatry. - Continue Aspirin 81mg daily and Plavix 75mg daily. - Follow-up in the office as an outpatient in 2-4 weeks. Office number is [phone], call with any questions/concerns. Discharge Orders/Prescriptions Prescriptions: No Action metformin 500 mg Tablet 1,000 mg PO BIDCM trazodone 50 mg Tablet 50 mg PO QHS gabapentin 300 mg Capsule 300 mg PO TID fluticasone propionate 50 mcg/actuation [place],Suspension 2 spray INTRANASAL DAILY nitroglycerin 0.4 mg Tablet, Sublingual 0.4 mg sublingual Q5M PRN (Reason: Cardiac/Chest Pain) Qty: 30 0RF carvedilol 6.25 mg tablet 6.25 mg PO BID Qty: 60 2RF Rx Instructions: must administer with a meal/food spironolactone 25 mg tablet 25 mg PO DAILY Qty: 30 1RF atorvastatin 80 mg Tablet 80 mg PO QHS Qty: 30 2RF aspirin 81 mg Tablet,Chewable 81 mg PO BREAKFAST Qty: 30 2RF ciclopirox [Ciclodan] 8 % solution 1 applic topical DAILY paroxetine HCl 30 mg tablet 30 mg PO DAILY Entresto 97-103 mg tablet 1 tab PO BID hydrophilic cream Cream 1 applic topical TID PRN (Reason: dry skin) omeprazole 20 mg capsule,delayed release(DR/EC) 20 mg PO DAILY Jardiance 25 mg tablet 25 mg PO DAILY Referrals / Follow [facility] [[facility] Provider[facility] -
--- NOTE | 2024-09-01 14:15 | DCINST_ITS ---
Discharge Instructions DC O2, CPAP, BIPAP needs Home O2 Discharge instructions: No Dressing / Incision Discharge Activity: - (Use a walking boot on the right foot when ambulating) Weight Bearing Status: - (Use walking boot on right foot to ambulate) Follow Up Care Test Results: Test results from this visit will be discussed in further detail at your follow- up appointment, if applicable. Discharge Plan Admission Admit Date/Time: 08/28/24 18:50 Primary Reason for Your Visit: Osteomyelitis right great toe Attending Provider: Meng Avelar Primary Care Provider: [place], [place] Consulting Providers: Meng Avelar; Cosme Reina; Duglas Harrell; Wesley Pickett Instructions Additional Instructions / Restrictions: Vascular Surgery instructions: - Remove L groin dressing morning of 09/02/24 then OK to leave open to air. OK to showers, do not submerge such as to take a bath/swim for 3 weeks. - Do not lift more than 20 pounds for 3 weeks; otherwise you may proceed with activity as tolerated and allowed by podiatry. - Continue Aspirin 81mg daily and Plavix 75mg daily. - Follow-up in the office as an outpatient in 2-4 weeks. Office number is [phone], call with any questions/concerns. Do not smoke Discharge Orders/Prescriptions Prescriptions: New clopidogrel 75 mg Tablet 75 mg PO DAILY Qty: 30 0RF amlodipine 5 mg Tablet 5 mg PO DAILY Qty: 3 0RF oxycodone 5 mg Tablet 5 mg PO Q4H PRN PRN (Reason: Pain Score 4-10) 5 Days Qty: 15 0RF doxycycline monohydrate 150 mg tablet 150 mg PO BID Qty: 10 0RF amoxicillin-pot clavulanate 875-125 mg tablet 1 tab PO BID Qty: 10 0RF Rx Instructions: Take with food Continued metformin 500 mg Tablet 1,000 mg PO BIDCM trazodone 50 mg Tablet 50 mg PO QHS gabapentin 300 mg Capsule 300 mg PO TID fluticasone propionate 50 mcg/actuation [place],Suspension 2 spray INTRANASAL DAILY nitroglycerin 0.4 mg Tablet, Sublingual 0.4 mg sublingual Q5M PRN (Reason: Cardiac/Chest Pain) Qty: 30 0RF carvedilol 6.25 mg tablet 6.25 mg PO BID Qty: 60 2RF Rx Instructions: must administer with a meal/food spironolactone 25 mg tablet 25 mg PO DAILY Qty: 30 1RF atorvastatin 80 mg Tablet 80 mg PO QHS Qty: 30 2RF aspirin 81 mg Tablet,Chewable 81 mg PO BREAKFAST Qty: 30 2RF paroxetine HCl 30 mg tablet 30 mg PO DAILY Entresto 97-103 mg tablet 1 tab PO BID omeprazole 20 mg capsule,delayed release(DR/EC) 20 mg PO DAILY Jardiance 25 mg tablet 25 mg PO DAILY Discontinued ciclopirox [Ciclodan] 8 % solution 1 applic topical DAILY hydrophilic cream Cream 1 applic topical TID PRN (Reason: dry skin) Referrals / Follow Up: Meng Avelar DPM [Med Staff - Active Staff] - See Referral Note (Next Wednesday, office will call you on Wednesday to give you an appointment) [facility] [Primary [facility] - Disposition Disposition (needs filled in before D/C Order can be placed): Home, Self Care
[2024-09-01] MEDS: 0.9% Saline Lock 10 ML Syringe IV (14:23)
[2024-09-01 14:27] VITALS: BP 180/106; PULSE 53; RESP 17; TEMP 36.4; O2SAT 96
--- NOTE | 2024-09-01 14:27 | PCM.DC.SUM ---
Providers Date of Admission: 08/28/24 Date of Discharge: 09/01/24 Primary Care Physician: [facility] Consultations 08/28/24 18:00 Consult: Vascular Surgery Routine Consulting Provider: Cosme Reina Reason for Consult: PAD lower extremity EMERGENT Consult: No MD Notified: Yes Date Notified: 08/28/24 Time Notified: 18:00 Method of Notification: Text 08/28/24 20:24 Consult: Infectious Disease Routine Consulting Provider: Duglas Harrell Reason for Consult: Right great toe osteomyelitis going to [place] EMERGENT Consult: No MD Notified: Yes Date Notified: 08/29/24 Time Notified: 06:24 Method of Notification: Text Consult: Onc/Wound/academic advisement director Routine Comment: Reason for Consult:: Here for right toe amputation Consult: Podiatry Routine Consulting Provider: Meng Avelar Reason for Consult: Right toe osteo EMERGENT Consult: No MD Notified: Yes Date Notified: 08/28/24 Time Notified: 19:14 Method of Notification: ED Physician Initiated 08/28/24 23:18 Consult: Onc/Wound/academic advisement director Routine Comment: Reason for Consult:: wound right 1st toe Reason For Visit: R GREAT TOE INFECTION Diagnosis Discharge Diagnosis (1) Cellulitis of right lower limb: Status: Acute Code(s): L03.115 - Cellulitis of right lower limb (2) Gangrene, not elsewhere classified: Status: Acute Code(s): I96 - Gangrene, not elsewhere classified (3) Acute osteomyelitis of toe of right foot: Status: Acute Code(s): M86.171 - Other acute osteomyelitis, right ankle and foot (4) Diabetes mellitus with diabetic polyneuropathy: Status: Acute Code(s): E11.42 - Type 2 diabetes mellitus with diabetic polyneuropathy (5) Other specified peripheral vascular diseases: Status: Acute Code(s): I73.89 - Other specified peripheral vascular diseases Plan 1. Osteomyelitis of the right great toe-status post partial amputation of the right great toe postop day #3-podiatry is participating in his care, infectious diseases saw the patient today and is directing antibiotic coverage. Patient may need to be transferred to an outside hospital for vascular care and an angiogram cannot be done urgently. [facility] the [place] [facility] #2 type 2 diabetes-blood sugars will be monitored, sliding scale insulin will be administered as needed #3 diabetic neuropathy of the feet-complicates care, management, recovery, and prognosis, patient is on gabapentin #4 hyperlipidemia-patient is on a statin #5 cerebrovascular disease-patient is currently on 81 mg aspirin daily as well as a statin #6 chronic congestive heart failure with preserved ejection fraction-patient is currently on Entresto and spironolactone #7 peripheral vascular disease-again patient underwent intervention by vascular surgery today Total clinical time spent by myself addressing the patient's medical issues, reviewing all of his data, and collaborating with patient's care team: 35 minutes Medications at Discharge Home Medications fluticasone propionate 50 mcg/actuation nasal spray,suspension 2 spray intranasal DAILY allergies 07/24/20 gabapentin 300 mg capsule 300 mg PO TID neuropathy 07/24/20 metformin 500 mg tablet 1,000 mg PO BIDCM diabetes 07/24/20 trazodone 50 mg tablet 50 mg PO QHS sleep 07/24/20 carvedilol 6.25 mg tablet 6.25 mg PO BID #60 tabs 07/26/20 nitroglycerin 0.4 mg sublingual tablet 0.4 mg sublingual Q5M PRN Cardiac/Chest Pain #30 tabs 07/26/20 spironolactone 25 mg tablet 25 mg PO DAILY #30 tabs 07/26/20 aspirin 81 mg chewable tablet 81 mg PO BREAKFAST #30 tabs 12/09/21 atorvastatin 80 mg tablet 80 mg PO QHS #30 tabs 12/09/21 empagliflozin 25 mg tablet (Jardiance) 25 mg PO DAILY 08/28/24 omeprazole 20 mg capsule,delayed release 20 mg PO DAILY 08/28/24 paroxetine HCl 30 mg tablet 30 mg PO DAILY 08/28/24 sacubitril 97 mg-valsartan 103 mg tablet (Entresto) 1 tab PO BID 08/28/24 amlodipine 5 mg tablet 5 mg PO DAILY #3 tabs 09/01/24 amoxicillin 875 mg-potassium clavulanate 125 mg tablet 1 tab PO BID #10 tabs 09/01/24 clopidogrel 75 mg tablet 75 mg PO DAILY #30 tabs 09/01/24 doxycycline monohydrate 150 mg tablet 150 mg PO BID #10 tabs 09/01/24 oxycodone 5 mg tablet 5 mg PO Q4H PRN PRN Pain Score 4-10 5 days #15 tabs 09/01/24 Hospital Course Operations - (Partial amputation of right great toe) Procedures - (Aortogram right lower extremity, intravascular ultrasound right anterior tibial artery, tibial popliteal trunk artery, popliteal artery with angioplasty of the right anterior tibial artery) Summary of Care Provided Minutes Spent on Discharge: 32 Hospital Course: This 59-year-old black male was seen in the emergency room at [facility] with a chief complaint of increasing pain, swelling, and erythema of the first toe of the right foot. Patient is a type II diabetic and has a history of peripheral vascular disease. Patient also complained of pain in the right great toe. Labs showed a slightly elevated white blood cell count at 11.9, hemoglobin was 10.4, creatinine was 1.93 and BUN was 24. Examination of the right toe reveals it to be swollen tender and reddened. X-ray of the right foot was obtained which shows soft tissue swelling and gas involving the first toe. There is an ill-defined irregular cortical margins around the anterior medial aspect of the right first toe suspicious for osteomyelitis. Patient was admitted to [place] [address], podiatry was consulted as well as infectious diseases. Also vascular surgery was consulted. Patient underwent surgery with removal of part of the right great toe, afterwards there was concern because there was no bleeding during the surgery and vascular surgery was involved and recommended an angiogram of the right leg. Unfortunately initially the angiogram could not be performed and there was discussion about sending the patient to another hospital which she at first refused to allow but then consented to it. In the meantime we were able to get the patient scheduled for an angiogram and there was an intervention done during the angiogram. IV antibiotics were continued by infectious diseases, on 09/01/2024, patient was seen and examined:alert, oriented x3 and no apparent distress General Appearance: cooperative, well kempt and well developed Orientation / Consciousness: awake, oriented to person, oriented to place and oriented to time HEENT normocephalic, head/scalp atraumatic and moist oral mucous membranes Eyes PERRL, EOMs intact bilaterally and conjunctivae normal Neck supple, no JVD, thyroid normal and no carotid bruits General: trachea midline Resp normal respiratory effort, no retractions, no use of accessory muscles and clear to auscultation bilaterally Auscultation: Negative for rales, rhonchi or wheezes Cardio regular rate, regular rhythm, S1 normal heart sound, S2 normal heart sound, no murmurs, no rub and no gallops GI normal to inspection, nondistended, normoactive bowel sounds, soft to palpation, non-tender and non-distended Extremity Extremity Narrative: Right foot is wrapped with surgical dressing, this was not removed for examination of the wound Neuro oriented x3, CN's II-XII intact bilaterally and no focal motor deficits Sensorium / Orientation: awake and alert Speech: speech normal Psych affect normal Patient was discharged home and in stable condition on 09/01/2024. Weight / BMI Weight Weight: 99.8 kg Body Mass Index (BMI) 27.3 ABG / Lab / Microbiology Data 08/29/24 05:36 08/31/24 10:01 Laboratory: Laboratory Results - last 24 hr 08/31/24 12:39: Activated Clotting Time 262 H 08/31/24 16:29: POC Glucose 113 H 08/31/24 21:56: POC Glucose 130 H 09/01/24 06:54: POC Glucose 104 09/01/24 11:18: POC Glucose 114 H Microbiology: Microbiology 08/28/24 20:00 Tissue - Toe Gram Stain - Final 08/28/24 20:00 Tissue - Toe Wound Culture - Final Staphylococcus capitis 08/28/24 20:00 Tissue - Toe Anaerobic Culture - Preliminary Checking for anaerobes, further studies to follow. 08/28/24 20:00 Biopsy - Toe Gram Stain - Final 08/28/24 20:00 Biopsy - Toe Wound Culture - Final Staphylococcus lugdunensis Staphylococcus capitis 08/28/24 20:00 Biopsy - Toe Anaerobic Culture - Final No anaerobic bacteria isolated. 08/28/24 16:17 Blood Culture (Wb) - Right Forearm Blood Culture - Preliminary No growth in 48 hours. 08/28/24 16:05 Blood Culture (Wb) - Left Hand Blood Culture - Preliminary No growth in 48 hours. D/C Instructions Weight Bearing Status: - (Use walking boot on right foot to ambulate) DC O2, CPAP, BIPAP Needs Home O2 Discharge instructions: No Meaningful Use Info Meaningful Use Meaningful Use Diagnoses (Choose all that apply): None applicable Discharge Plan Admission Admit Date/Time: 08/28/24 18:50 Primary Reason for Your Visit: Osteomyelitis right great toe Attending Provider: Meng Avelar Primary Care Provider: [facility] Consulting Providers: Meng Avelar; Cosme Reina; Duglas Harrell; Wesley Pickett Instructions Additional Instructions / Restrictions: Vascular Surgery instructions: - Remove L groin dressing morning of 09/02/24 then OK to leave open to air. OK to showers, do not submerge such as to take a bath/swim for 3 weeks. - Do not lift more than 20 pounds for 3 weeks; otherwise you may proceed with activity as tolerated and allowed by podiatry. - Continue Aspirin 81mg daily and Plavix 75mg daily. - Follow-up in the office as an outpatient in 2-4 weeks. Office number is [phone], call with any questions/concerns. Do not smoke Discharge Orders/Prescriptions Prescriptions: New clopidogrel 75 mg Tablet 75 mg PO DAILY Qty: 30 0RF amlodipine 5 mg Tablet 5 mg PO DAILY Qty: 3 0RF oxycodone 5 mg Tablet 5 mg PO Q4H PRN PRN (Reason: Pain Score 4-10) 5 Days Qty: 15 0RF doxycycline monohydrate 150 mg tablet 150 mg PO BID Qty: 10 0RF amoxicillin-pot clavulanate 875-125 mg tablet 1 tab PO BID Qty: 10 0RF Rx Instructions: Take with food Continued metformin 500 mg Tablet 1,000 mg PO BIDCM trazodone 50 mg Tablet 50 mg PO QHS gabapentin 300 mg Capsule 300 mg PO TID fluticasone propionate 50 mcg/actuation [place],Suspension 2 spray INTRANASAL DAILY nitroglycerin 0.4 mg Tablet, Sublingual 0.4 mg sublingual Q5M PRN (Reason: Cardiac/Chest Pain) Qty: 30 0RF carvedilol 6.25 mg tablet 6.25 mg PO BID Qty: 60 2RF Rx Instructions: must administer with a meal/food spironolactone 25 mg tablet 25 mg PO DAILY Qty: 30 1RF atorvastatin 80 mg Tablet 80 mg PO QHS Qty: 30 2RF aspirin 81 mg Tablet,Chewable 81 mg PO BREAKFAST Qty: 30 2RF paroxetine HCl 30 mg tablet 30 mg PO DAILY Entresto 97-103 mg tablet 1 tab PO BID omeprazole 20 mg capsule,delayed release(DR/EC) 20 mg PO DAILY Jardiance 25 mg tablet 25 mg PO DAILY Discontinued ciclopirox [Ciclodan] 8 % solution 1 applic topical DAILY hydrophilic cream Cream 1 applic topical TID PRN (Reason: dry skin) Referrals / Follow Up: Meng Avelar DPM [Med Staff - Active Staff] - See Referral Note (Next Wednesday, office will call you on Wednesday to give you an appointment) [facility] [Primary Care Provider] - Disposition Disposition (needs filled in before D/C Order can be placed): Home, Self Care Charges/Coding Visit Charges Inpatient E&M: 87266 Disch Hosp >30min
== END 2024-09-01 16:27 | disposition home or self-care (01) | DRG 616 ==
LOC: ED 16:15 → SDC 17:56 → AC 17:57 → SDC 18:23 → MS3 23:05
PROVIDERS: Family Medicine; Physician Assistant; Admitting Provider Internal Medicine; Emergency Provider Surgery; Visit Provider Podiatrist
PROC: 0Y6P0Z1 Detachment at Right 1st Toe, High, Open Approach (ICD-10-PCS; principal; 2024-08-28 18:30)
DX: E11.69 Type 2 diabetes mellitus with other specified complication (principal); A48.0 Gas gangrene; I70.261 Atherosclerosis of native arteries of extremities with gangrene, right leg; E11.52 Type 2 diabetes mellitus with diabetic peripheral angiopathy with gangrene; I13.0 Hypertensive heart and chronic kidney disease with heart failure and stage 1 through stage 4 chronic kidney disease, or unspecified chronic kidney disease; M86.171 Other acute osteomyelitis, right ankle and foot; I50.32 Chronic diastolic (congestive) heart failure; L03.115 Cellulitis of right lower limb; N18.31 Chronic kidney disease, stage 3a; I69.320 Aphasia following cerebral infarction; F32.A Depression, unspecified; D64.9 Anemia, unspecified; E11.628 Type 2 diabetes mellitus with other skin complications; E11.42 Type 2 diabetes mellitus with diabetic polyneuropathy; E78.5 Hyperlipidemia, unspecified; F41.9 Anxiety disorder, unspecified; I25.2 Old myocardial infarction; F17.210 Nicotine dependence, cigarettes, uncomplicated; E11.65 Type 2 diabetes mellitus with hyperglycemia; E11.22 Type 2 diabetes mellitus with diabetic chronic kidney disease; I25.10 Atherosclerotic heart disease of native coronary artery without angina pectoris; K21.9 Gastro-esophageal reflux disease without esophagitis; Z79.84 Long term (current) use of oral hypoglycemic drugs; Z79.82 Long term (current) use of aspirin; Z79.899 Other long term (current) drug therapy; Z79.51 Long term (current) use of inhaled steroids
CPT/HCPCS: 36200; 36245; 36415; 37228; 37252; 37253; 73630; 75625; 75710; 76937; 80048; 80202; 82565; 82962; 83605; 85025; 85347; 85652; 86140; 87015; 87040; 87070; 87075; 87077; 87102; 87116; 87186; 87205; 87206; 88305; 88311; 93923; 94668; 97162; 97530; 99152; 99153; 99285; 99406; C1725; C1753; C1760; C1769; C1887; C1894; J2997; Q9967; A4216; J0295; J2405